=== PATIENT | male | born 1955 | race Caucasian/White ===

== ENCOUNTER 2020-06-01 09:14 | Emergency (ER) | payer OTHER, SELFPAY ==
[2020-06-01 09:35] VITALS: BP 136/75; BP 140/82; PULSE 55; PULSE 56; RESP 18; TEMP 36.6; O2SAT 97; BMI 31.2
--- NOTE | 2020-06-01 09:44 | CT_ITS ---
EXAMINATION: CT HEAD WITHOUT CONTRAST CLINICAL INFORMATION: Tremors. Headache. COMPARISON: Multiple priors, most recently MRI performed 05/06/2019. TECHNIQUE: Contiguous axial imaging was performed from the skull base to vertex without intravenous contrast. This CT examination was performed using dose optimization techniques as appropriate, variously including the following: * Automated exposure control * Adjustment of mA and/or kV according to patient size (this includes techniques or standardized protocols for targeted exams where dose is matched to indication/reason for exam; i.e. extremities or head) Use of iterative reconstruction technique DLP: 729 mGy-cm. FINDINGS: There is no evidence of acute intracranial hemorrhage or territorial infarction. No abnormal mass effect or midline shift is seen. [place] to white matter differentiation is well preserved. No extra-axial fluid collections are identified. No hydrocephalus. Proportional prominence of the ventricles and sulcal spaces is consistent with mild volume loss. Patchy periventricular and deep white matter hypoattenuation is consistent with mild small vessel ischemic changes. The osseous structures and soft tissues are normal. The mastoid air cells and visualized portions of the paranasal sinuses are well aerated. CT/CT head/brain wo con IMPRESSION: No acute intracranial pathology. Mild volume loss with small vessel ischemic change.
--- NOTE | 2020-06-01 09:44 | XR_ITS ---
EXAMINATION: XR CHEST CLINICAL INFORMATION: Dry cough for 3 weeks COMPARISON: 11/18/2018 TECHNIQUE: Frontal view of the chest was obtained. FINDINGS: The lungs are well expanded. There is no focal consolidation, edema, or effusion. No pneumothorax. The cardiomediastinal silhouette is within normal limits of size with a calcified aorta. No acute osseous abnormality. Degenerative changes of the shoulders, right greater than left. XR/XR chest 1V IMPRESSION: Clear lungs.
--- NOTE | 2020-06-01 09:50 | ED_ITS ---
HPI - General Adult General Chief complaint: General Medical Stated complaint: TREMMORS Time Seen by Provider: 06/01/20 09:34 Source: patient Mode of arrival: ambulatory Limitations: no limitations History of Present Illness HPI narrative: Patient presents to ED for Resolved tremors. patient stated last night around 9:pm he woke up and has tremors. Patient states he was awake at the time. Patient states his witnessed it and then gave him Klonopin and since then tremors has resolved. Patient has secondary complaint of dry cough for 3 weeks. Patient denies any recent head trauma. Patient states no c hest pain, shortness of breath, headache, dizziness, slurred speech, loss of vision, or paralysis of extremities. Patient states when he had the tremors he did not have any urinary or bowel incontinence. Patient also states he was awake at that time. Patient states he has had this before in the past. Related Data Allergies Allergy/AdvReac Type Severity Reaction Status Date / Time lisinopril [LISINOPRIL] Allergy Unknown MUSCLE Verified 06/01/20 11:58 ACHES pregabalin [From LYRICA] Allergy Unknown UNKNOWN Verified 06/01/20 11:58 Review of Systems Review of Systems: Yes all other systems are reviewed and are negative Constitutional: Constitutional: Reports as per HPI and Reports no additional constitutional complaints Eyes: Eyes: Reports as per HPI and Reports no additional eye complaints ENT: Reports system reviewed and no additional complaints, except as d ocumented and Reports as per HPI Cardiovascular: Cardiovascular: Reports as per HPI and Reports no additional cardiovascular complaints Respiratory: Respiratory: Reports as per HPI and Reports no additional respiratory complaints Gastrointestinal: Gastrointestinal: Reports as per HPI and Reports no additional gastrointestinal complaints Genitourinary: Genitourinary: Reports no additional male genitourinary complaints and Reports as per HPI Musculoskeletal: Musculoskeletal: Reports no additional musculoskeletal complaints and Reports as per HPI Neurologic: Reports system reviewed and no additional complaints, except as documented and Reports as per HPI Comments: Resolved tremors Psychiatric: Psychiatric: Reports no additional psychiatric complaints and Reports as per HPI Endocrine: Endocrine: Reports no additional endocrine complaints and Reports as per HPI [facility] Past Medical History Medical History (Updated 06/01/20 @ 17:10 by DULCE Vaughan) Anxiety Diabetic acidosis, type II Heart attack High blood cholesterol Stroke Surgical History (Updated 06/01/20 @ 09:46 by Dana Gutierrez) H/O neck surgery History of heart artery stent Social History Social History Alcohol intake: former Smoking Status: Never smoker Use of substances other than those prescribed or required for medical reasons: No Advance Directives: No Advance Directives Information Provided: No Physical Exam Vital Signs: Vital Signs: Last Vital Signs Temp 99.1 F 06/01/20 15:16 Pulse 59 06/01/20 15:16 Resp 15 06/01/20 15:16 BP 148/91 H 06/01/20 15:16 Pulse Ox 97 06/01/20 15:16 Body Mass Index 31.2 Const: General: cooperative, healthy appearing, comfortable, no acute distress and well developed Orientation/consciousness: patient oriented x3 HENMT: Head: Yes normal to inspection and Yes No palpable skull fracture present Eyes: General: appearance normal, both eyes and all related structures Visual Liriano: normal visual liriano by confrontation Neck: Neck: Yes normal visual inspection, Yes full ROM, Yes no lymphadenopathy, Yes no meningeal signs and Yes trachea midline Chest: Chest palpation & inspection: normal inspection of the chest, normal palpation of entire chest wall and no localized rib tenderness Resp: Effort & Inspection: normal respiratory effort and able to speak in complete sentences Auscultation: clear to auscultation bilaterally, no crackles, no rales, no rhonchi and no wheezes Cardio: Jugular venous distension: no JVD Heart sounds: S1 normal heart sound present and S2 normal heart sound present Bruits: Abdominal aortic bruit present GI: Inspection: Yes normal to inspection Palpation (GI): Abdominal aortic bruit present, nontender, no guarding and not rigid : General: No CVA tenderness and Yes no CVA tenderness Back/Spine/Pelvis: Back: no CVA tenderness, No CVA tenderness and No back tenderness Skin: General skin exam: no rashes or lesions noted Neuro: Other: negative for facial droop. Negative pronator drift. Cranial nerves intact. Motor and strength of all extremities are intact in call. Negative for any nystagmus. Negative for any neuro deficit General: patient oriented x3, gait normal, no meningeal signs and CN's II-XI intact bilaterally Cranial nerves: Yes CN's II-XII intact bilaterally Extrem: General: Yes normal to inspection and Yes full ROM Psych: Appearance: grossly normal, well kempt and not disheveled Course Course Course Narrative: patient presently does not have any tremors. Patient negative for any neuro deficit. History physical exam does not indicate stroke. Due to patient's age he will have medical workup including magnesium due to patient stated he take magnesium daily to make sure there is no hyper magnesium. period patient also check for other electrolyte deficiencies. Urine will be sent to rule out any infections. Chest x-ray will be sent to rule out pneumonia. patient also be sent for head CT to make sure there is no mass or bleed although very unlikely. Reevaluation(s) Reevaluation #1: Patient's intial troponi came back at 5.5. Head CT negative for stroke. Labs are at baseline. Awaiting for UA results. patient has not had any tremors during ED visit. Magneisum and elecrolytes came back normal. Time: 11:21 Reevaluation #2: Secondary troponin did not increase by 50% which makes acute mycocardial infarction unlikely as per [facility] [place] sensitivity algorithim. once again patient did not have any essential tremmors during ED visit. Time: 14:21 Reevaluation #3: Patient an episode of tremors that lasted for about 10 seconds. patient was conscisouness during this episode. patient did not have any urinary/bowel inconitence. Tremors resolved. NEgative for facial droops. Cranial nerves intact. Negative pronator drifts. Negative rhomberg test. Rapid hand movements and finger to nose exam is intact. motor exam of all extremities is intact and equal. patient has normal gait with a walker. patient usually ambulated with walker at baseline. patient refusess to give UA. Patient states he has no urge to go. patient informed of bladder scan and possible george, but patient refused and states he will follow up with his PCP to check his UA. Patient informed of necessity for UA to rule out infectiont that can lead to sepsis if not treated and . patient was informed of this and still would like to be discharge and will follow up with PCP tomorrow. Case discussed with Dr. Weller who agrees patient can be discharged. Presently negative for any neuro deficits. History and physical does not indicate Stroke or Seizures. Time: 17:02 Additional Reevaluation(s): I attempted to call to discuss care with patient and necessary follow up, but she could not be reached and there was no voicemail to leave a voicemail. At 5:47pm. I spoke with Nelia, patient's , and she was made aware of patient's care in the ED and labs including diagnostics were reviewed. She was informed patient refused Urine and was informed the risks of missing infection. She asked for UA sample cup and states she will bring patient;s UA sample to PCP tomorrow once he urinates tonight. She was informed to bring patient back to the ED immediatley for any concerning symptoms. She was explained signs of stroke, seizure, and syncope. Medical Decision Making MDM Narrative Medical decision making narrative: Tremors most likely anxiety induced. Lab Data Result diagrams: 06/01/20 11:06/01/20 11:22 Labs: Lab Results 06/01/20 06/01/20 06/01/20 Range/Units 11: 11:22 11:22 WBC 6.8 (4.8-10.8) X10*3/uL RBC 4.29 L (4.60-5.80) X10*6/uL Hgb 12.6 L (14.0-18.0) g/dl Hct 38.3 L (42-52) % MCV 89.3 (80-98) fL MCH 29.4 (27.0-33.0) pg MCHC 32.9 (31.0-36.0) g/dl RDW 12.7 (11.0-16.0) % Plt Count 185 (160-400) X10*3/uL MPV 10.3 (9.4-12.4) fL Immature Gran % (Auto) 0.3 (0.0-0.4) % Neut % (Auto) 55.4 (45-73) % Lymph % (Auto) 33.2 (20-40) % [place] % (Auto) 8.5 (2-11) % Eos % (Auto) 2.2 (0-4) % Baso % (Auto) 0.4 (0-2) % Lymph # (Auto) 2.3 (1.2-4.9) X10*3/uL [place] # (Auto) 0.6 (0.1-1.2) X10*3/uL Eos # (Auto) 0.2 (0.0-0.4) X10*3/uL Baso # (Auto) 0.0 (0.0-0.2) X10*3/uL Abs Immat Gran (auto) 0.02 (0.00-0.03) X10*3/uL Absolute Neuts (auto) 3.8 (2.0-8.3) X10*3/uL Absolute Nucleated RBC 0.000 (0.0-0.012) X10*3/uL Nucleated RBC % (auto) 0.0 (0.0-0.2) /100WBC PT 12.7 (10.8-13.0) SEC INR 1.1 (0.9-1.1) APTT 33.5 (24.1-38.0) SEC Sodium (135-145) mmol/L Potassium (3.3-5.1) mmol/l Chloride (96-108) mmol/L Carbon Dioxide (22-29) mmol/L Anion Gap (12-20) BUN (9-16) mg/dL Creatinine (0.5-1.4) mg/dL Estim Creat Clear Calc Estimated GFR Random Glucose (60-115) mg/dL Calcium (8.4-10.2) mg/dL Magnesium (1.6-2.6) mg/dL Total Bilirubin (0.0-1.0) mg/dL AST (5-37) U/L ALT (0-40) U/L Alkaline Phosphatase (39-117) U/L Troponin I High Sens 5.5 (<3.5-35.0) ng/L Total Protein (6.5-8.0) g/dL Albumin (3.5-5.0) g/dL 06/01/20 06/01/20 Range/Units 11:22 14:51 WBC (4.8-10.8) X10*3/uL RBC (4.60-5.80) X10*6/uL Hgb (14.0-18.0) g/dl Hct (42-52) % MCV (80-98) fL MCH (27.0-33.0) pg MCHC (31.0-36.0) g/dl RDW (11.0-16.0) % Plt Count (160-400) X10*3/uL MPV (9.4-12.4) fL Immature Gran % (Auto) (0.0-0.4) % Neut % (Auto) (45-73) % Lymph % (Auto) (20-40) % [place] % (Auto) (2-11) % Eos % (Auto) (0-4) % Baso % (Auto) (0-2) % Lymph # (Auto) (1.2-4.9) X10*3/uL [place] # (Auto) (0.1-1.2) X10*3/uL Eos # (Auto) (0.0-0.4) X10*3/uL Baso # (Auto) (0.0-0.2) X10*3/uL Abs Immat Gran (auto) (0.00-0.03) X10*3/uL Absolute Neuts (auto) (2.0-8.3) X10*3/uL Absolute Nucleated RBC (0.0-0.012) X10*3/uL Nucleated RBC % (auto) (0.0-0.2) /100WBC PT (10.8-13.0) SEC INR (0.9-1.1) APTT (24.1-38.0) SEC Sodium 140 (135-145) mmol/L Potassium 4.5 (3.3-5.1) mmol/l Chloride 99 (96-108) mmol/L Carbon Dioxide 32 H (22-29) mmol/L Anion Gap 14 (12-20) BUN 13 (9-16) mg/dL Creatinine 0.92 (0.5-1.4) mg/dL Estim Creat Clear Calc 84.2 Estimated GFR > 60 Random Glucose 103 (60-115) mg/dL Calcium 8.8 (8.4-10.2) mg/dL Magnesium 2.0 (1.6-2.6) mg/dL Total Bilirubin 0.7 (0.0-1.0) mg/dL AST 15 (5-37) U/L ALT 18 (0-40) U/L Alkaline Phosphatase 84 (39-117) U/L Troponin I High Sens 6.1 (<3.5-35.0) ng/L Total Protein 6.4 L (6.5-8.0) g/dL Albumin 4.2 (3.5-5.0) g/dL ECG Data Interpretation: Sinus bradycardia, nonspecific t wave abnormality. Vent rate 54, CO interval 194, QRS 92 Discharge Plan Discharge Clinical Impression: Tremor Patient Disposition: Home, Self-Care Instructions: Tremors (ED) Additional Instructions: Return to the ED for headache, slurred speech, urinary/bowel incontinence, paralysis of extremites, loss of vision, dizziness, neck stiffnes, loss of consciousness, fever, chills, abdominal pain, or any other concerning symptoms. Please follow up with your PCP. Follow up for Urine Analysis. patient refused to give UA during ED visit. Referrals: Dena Mcclelland MD [Physician] - 2 days (Tremors. Ct scan negative for stroke. Electrolytes are normal. ) Interventions: ED Discharge Assessment Last Done: 06/01/20 17:32 Discharge Date/Time: 06/01/20 17:32 Print Language: Nepalese
--- NOTE | 2020-06-01 10:05 | ECG_ITS ---
Test Reason : GENERAL WEAKNESS Blood Pressure : / mmHG Vent. Rate : 054 BPM Atrial Rate : 054 BPM P-R Int : 190 ms QRS Dur : 090 ms QT Int : 510 ms P-R-T Axes : 060 -20 003 degrees QTc Int : 483 ms Sinus bradycardia Nonspecific T wave abnormality Anterolateral leads Abnormal ECG When compared with ECG of 04-MAY-2019 22:52, T wave amplitude has decreased in Lateral leads Referred By: Zane Kim Electronically Signed By:NICOLAS WILCOX MD
[2020-06-01 11:37] LABS: MANUAL DIFF FLAG NO
[2020-06-01 11:42] VITALS: BP 152/88; PULSE 57; RESP 18; TEMP 36.6; O2SAT 97
[2020-06-01 11:46] LABS: Basophils Percent Auto 0.4 % (0-2); Eosinophils Absolute Auto 0.2 X10*3/uL (0.0-0.4); Eosinophils Percent Auto 2.2 % (0-4); Hematocrit 38.3 % (42-52); Hemoglobin 12.6 g/dl (14.0-18.0); Imm Gran Abs Auto 0.02 X10*3/uL (0.00-0.03); Imm Gran Pct Auto 0.3 % (0.0-0.4); Lymphocytes Absolute Auto 2.3 X10*3/uL (1.2-4.9); Lymphocytes Percent Auto 33.2 % (20-40); Mean Corpuscular HGB Conc 32.9 g/dl (31.0-36.0); Mean Corpuscular Hemoglobin 29.4 pg (27.0-33.0); Mean Corpuscular Volume 89.3 fL (80-98); Mean Platelet Volume 10.3 fL (9.4-12.4); Monocytes Absolute Auto 0.6 X10*3/uL (0.1-1.2); Monocytes Percent Auto 8.5 % (2-11); Neutrophils Absolute Auto 3.8 X10*3/uL (2.0-8.3); Neutrophils Percent Auto 55.4 % (45-73); Platelet Count 185 X10*3/uL (160-400); Red Blood Count 4.29 X10*6/uL (4.60-5.80); Red Cell Distribution Width 12.7 % (11.0-16.0); White Blood Count 6.8 X10*3/uL (4.8-10.8)
--- NOTE | 2020-06-01 11:46 | PC.NURSE ---
PATIENT PLACED ON [employer]
[2020-06-01 11:47] LABS: INTERNATIONAL NORM RATIO 1.1 (0.9-1.1); Prothrombin Time 12.7 SEC (10.8-13.0)
[2020-06-01 11:50] LABS: Partial Thromboplastin Time 33.5 SEC (24.1-38.0)
[2020-06-01 11:51] VITALS: BP 143/70; PULSE 58; RESP 16; O2SAT 97
[2020-06-01 12:06] LABS: Alanine Aminotransferase 18 U/L (0-40); Albumin Level 4.2 g/dL (3.5-5.0); Alkaline Phosphatase 84 U/L (39-117); Anion Gap 14 (12-20); Aspartate Amino Transferase 15 U/L (5-37); Bilirubin Total 0.7 mg/dL (0.0-1.0); Blood Urea Nitrogen 13 mg/dL (9-16); Calcium 8.8 mg/dL (8.4-10.2); Carbon Dioxide 32 mmol/L (22-29); Chloride 99 mmol/L (96-108); Creatinine Clr Calc Pharmacy 84.2; Estimated Glomerular Filt Rate > 60; Glucose Random 103 mg/dL (60-115); Potassium 4.5 mmol/l (3.3-5.1); Sodium 140 mmol/L (135-145); Total Protein 6.4 g/dL (6.5-8.0)
[2020-06-01 12:12] LABS: Troponin-I High Sensitivity 5.5 ng/L (<3.5-35.0)
[2020-06-01 14:00] VITALS: BP 152/83; PULSE 61; RESP 16; O2SAT 98
[2020-06-01] MEDS: Acetaminophen 325 MG TABLET 650 MG PO (14:21)
[2020-06-01 15:16] VITALS: BP 148/91; PULSE 59; RESP 15; TEMP 37.3; O2SAT 97
--- NOTE | 2020-06-01 15:20 | PC.NURSE ---
patient was reminded of urine and states unable to.
[2020-06-01 15:34] LABS: Troponin-I High Sensitivity 6.1 ng/L (<3.5-35.0)
== END 2020-06-01 17:32 | disposition home or self-care (01) ==
PROVIDERS: Physician Assistant; Emergency Provider Emergency Medicine
DX: R25.1 Tremor, unspecified (principal); Z79.899 Other long term (current) drug therapy
CPT/HCPCS: 36415; 70450; 71045; 80053; 83735; 84484; 85025; 85610; 85730; 93005; 99284

== ENCOUNTER 2020-06-19 | Inpatient (IN) | payer OTHER, SELFPAY ==
[2020-06-19] VITALS (8 sets, daily range): BP systolic 88–183; BP diastolic 52–76; PULSE 62–84; RESP 18–20; TEMP 36.2–36.8; O2SAT 94–98; BMI 42.9
--- NOTE | 2020-06-19 00:19 | ED_ITS ---
HPI - General Adult General Stated complaint: multiple complaints Time Seen by Provider: 06/19/20 00:11 Source: patient Mode of arrival: EMS Limitations: no limitations History of Present Illness HPI narrative: Patient been feeling weak for last few days frequent falls lower abdominal pain specially on the left side per EMS patient reported COVID positive in September per patient has been feeling weak since then and now complaining of increased left lower abdominal pain and burning on urination also feel tired fell this morning hitting his head patient is on Plavix no loss of consciousness no shortness of breath dry cough , at this time no fever Onset (ago): day(s) (2-3 days) Location: head Related Data Allergies Allergy/AdvReac Type Severity Reaction Status Date / Time lisinopril [LISINOPRIL] Allergy Unknown MUSCLE Verified 06/01/20 11:58 ACHES pregabalin [From LYRICA] Allergy Unknown UNKNOWN Verified 06/01/20 11:58 Review of Systems 2 Review of Systems: Yes all other systems are reviewed and are negative Constitutional: Constitutional: Reports anorexia, Reports body ache(s), Reports daytime sleepiness, Reports fatigue, Reports poor appetite and Reports weakness Eyes: Eyes: Reports no additional eye complaints ENT: Reports system reviewed and no additional complaints, except as documented Cardiovascular: Cardiovascular: Reports no additional cardiovascular complaints and Denies dyspnea Respiratory: Respiratory: Reports no additional respiratory complaints, Denies chest congestion, Denies cough and Denies dyspnea Gastrointestinal: Gastrointestinal: Reports abdominal pain (Lower abdomen), Reports diarrhea and Denies vomiting Genitourinary: Genitourinary: Reports no additional male genitourinary complaints Musculoskeletal: Musculoskeletal: Reports myalgias Neurologic: Reports system reviewed and no additional complaints, except as documented and Reports weakness Endocrine: Endocrine: Reports fatigue PMFSH Past Medical History Medical History Anxiety Diabetic acidosis, type II Heart attack High blood cholesterol Stroke Surgical History H/O neck surgery History of heart artery stent Social History Social History Alcohol intake: former Smoking Status: Never smoker Advance Directives: No Advance Directives Information Provided: No Physical Exam Vital Signs: Vital Signs: Last Vital Signs Temp 98.2 F 06/19/20 00:24 Pulse 63 06/19/20 00:24 Resp 18 06/19/20 00:24 BP 99/52 L 06/19/20 00:24 Pulse Ox 94 06/19/20 00:24 Body Mass Index 42.9 Const: General: cooperative, comfortable, acute distress moderate and tired appearing Nutritional Appearance: average body habitus Orientation/consciousness: oriented to person, oriented to place, oriented to time and patient oriented x3 Limitations: no limitations HENMT: Head: Yes normal to inspection Mouth: moist mucous membranes Eyes: General: appearance normal, both eyes and all related structures Conjunctivae: conjunctivae normal Sclerae: sclerae normal Neck: Neck: Yes normal visual inspection and Yes no meningeal signs Thyroid: Thyroid normal Chest: Chest palpation & inspection: normal inspection of the chest Resp: Effort & Inspection: normal respiratory effort Auscultation: clear to auscultation bilaterally, no crackles, no rales and no rhonchi Cardio: Rate: regular rate Rhythm: regular rhythm Heart sounds: S1 normal heart sound present and S2 normal heart sound present GI: Inspection: Yes normal to inspection Palpation (GI): Soft to palpation, Tenderness to palpation present (GI) in the LLQ and with rebound tenderness, Guarding due to palpation present (GI) in the LLQ and No hepatosplenomegaly present Percussion: Yes normal to percussion Auscultation: normal bowel sounds Rectal Exam - Male: Yes deferred : General: Yes no CVA tenderness Back/Spine/Pelvis: Back: no CVA tenderness Thoracic/Lumbar Spine: thoracic and lumbar spine normal to inspection Skin: General skin exam: no rashes or lesions noted Neuro: General: oriented to person, oriented to place, oriented to time, patient oriented x3, moves all extremities, Normal light touch and pain sensation, no meningeal signs, no focal motor deficits and CN's II-XI intact bilaterally Extrem: General: Yes normal to inspection, Yes full ROM and Yes no pedal edema Medical Decision Making MDM Narrative Medical decision making narrative: Patient with left lower quadrant tenderness with poor oral intake and weakness repeated fall CT scan showed sigmoid diverticulitis with developing pericolonic abscess measuring about 2.8 cm. Labs are pending will give him IV Levaquin and Flagyl get the surgery consult. Case discussed with Dr. Way will admit the patient to his service patient signed out to Dr. go to check the labs Lab Data Result diagrams: 06/19/20 01:35 06/19/20 01:35 Discharge Plan Discharge Clinical Impression: Acute diverticulitis, Perforation of sigmoid colon due to diverticulitis Patient Disposition: Admitted As Inpatient
--- NOTE | 2020-06-19 00:20 | ECG_ITS ---
Test Reason : ADMISSION Blood Pressure : / mmHG Vent. Rate : 061 BPM Atrial Rate : 061 BPM P-R Int : 172 ms QRS Dur : 090 ms QT Int : 438 ms P-R-T Axes : 062 000 033 degrees QTc Int : 440 ms Normal sinus rhythm Nonspecific ST and T wave abnormality Abnormal ECG When compared to the previous EKG of No significant changes seen Referred By: Axel Weller Electronically Signed By:STEVE REILLY MD
--- NOTE | 2020-06-19 00:20 | XR_ITS ---
EXAMINATION: XR CHEST CLINICAL INFORMATION: Altered mental status COMPARISON: 06/01/2020 TECHNIQUE: Frontal view of the chest was obtained. FINDINGS: Low lung volumes. Mild right basilar opacities may be compressive atelectasis. Developing infiltrate cannot be excluded No effusion. No failure XR/XR chest 1V IMPRESSION: Low lung volumes. Mild right basilar atelectasis but developing infiltrate cannot be excluded
--- NOTE | 2020-06-19 00:20 | CT_ITS ---
EXAMINATION: CT ABDOMEN AND PELVIS WITHOUT CONTRAST CLINICAL INFORMATION: Left lower quadrant pain COMPARISON: 11/18/2018 TECHNIQUE: Multidetector volumetric imaging was performed from the superior aspect of the liver through the pubic symphysis. Sagittal and coronal reformatted images were obtained on the technologist's workstation. This CT examination was performed using dose optimization techniques as appropriate, variously including the following: *Automated exposure control *Adjustment of mA and/or kV according to patient size (this includes techniques or standardized protocols for targeted exams where dose is matched to indication/reason for exam; i.e. extremities or head) *Use of iterative reconstruction technique DLP: 1978 mGy-cm FINDINGS: LUNG BASES: The visualized lung bases are unremarkable. Coronary artery calcifications are present. LIVER, GALLBLADDER, AND BILIARY TREE: The liver is normal in size, shape, and attenuation. Subcentimeter hypodense lesion in the posterior right hepatic lobe is too small to characterize. No biliary ductal dilatation is present. The gallbladder is unremarkable with no evidence of radiopaque gallstones, gallbladder wall thickening, or obvious pericholecystic inflammatory changes. PANCREAS: Unremarkable. SPLEEN: Unremarkable. ADRENAL GLANDS: Unremarkable. KIDNEYS AND URETERS: The kidneys are normal in size, shape, and attenuation. No hydronephrosis, hydroureter, or calculi seen. No perinephric stranding. BLADDER: Thick-walled appearance, which may be due to underdistention.. GASTROINTESTINAL TRACT: There is diverticulosis of the sigmoid colon with focal wall thickening and surrounding inflammation, consistent with acute diverticulitis. In addition, there is a pericolonic collection of gas and fluid in the lateral left lower quadrant measuring approximately 2.5 x 1.7 cm on axial image 75/107 and 2.8 cm in craniocaudal dimension, most consistent with developing pericolonic abscess formation. No evidence of bowel obstruction. The appendix is unremarkable. ABDOMINAL WALL: No significant hernia is appreciated. LYMPH NODES: Normal. VASCULAR: There is atherosclerotic calcification along the aorta and iliac arteries. PELVIC VISCERA: Unremarkable. OSSEOUS STRUCTURES: Degenerative changes are present in the hips, right greater than left. There is also degenerative change in the spine at L5-S1. CT/CT abdomen pelvis wo con IMPRESSION: 1. Sigmoid colon diverticulitis with adjacent developing pericolonic abscess measuring up to 2.8 cm. 2. Thick-walled appearance of the urinary bladder which may be due to underdistention, though cystitis cannot be excluded. Correlation with urinalysis is recommended. 3. Coronary artery calcifications. Correlation with cardiac risk factors is recommended. This was discussed with Dr. Weller on 06/19/2020 1:22 AM.
--- NOTE | 2020-06-19 00:20 | CT_ITS ---
EXAMINATION: CT HEAD WITHOUT CONTRAST CLINICAL INFORMATION: Status post fall COMPARISON: 06/01/2020 TECHNIQUE: Contiguous axial imaging was performed from the skull base to vertex without intravenous administration of contrast. This CT examination was performed using dose optimization techniques as appropriate, variously including the following: *Automated exposure control *Adjustment of mA and/or kV according to patient size (this includes techniques or standardized protocols for targeted exams where dose is matched to indication/reason for exam; i.e. extremities or head) *Use of iterative reconstruction technique DLP: 1978 mGy-cm FINDINGS: There is no evidence of acute intracranial hemorrhage or territorial infarction. No abnormal mass effect or midline shift is seen. [place] to white matter differentiation is well preserved. No extra-axial fluid collections are identified. The ventricles are normal in size. There is no abnormal attenuation within the brain parenchyma. The osseous structures and soft tissues are normal. Mild mucosal thickening of the anterior ethmoid air cells. The mastoid air cells are well-aerated. CT/CT head/brain wo con IMPRESSION: No acute intracranial pathology.
[2020-06-19] MEDS: 0.9 % Sodium Chloride 1,000 ML 999 ML IVCONT (01:30)
[2020-06-19 01:46] LABS: Basophils Percent Auto 0.2 % (0-2); Eosinophils Percent Auto 0.1 % (0-4); Imm Gran Abs Auto 0.05 X10*3/uL (0.00-0.03); Imm Gran Pct Auto 0.3 % (0.0-0.4); Lymphocytes Absolute Auto 2.1 X10*3/uL (1.2-4.9); Lymphocytes Percent Auto 13.1 % (20-40); MANUAL DIFF FLAG SCAN; Mean Corpuscular HGB Conc 33.3 g/dl (31.0-36.0); Mean Platelet Volume 9.9 fL (9.4-12.4); Monocytes Absolute Auto 1.6 X10*3/uL (0.1-1.2); Neutrophils Absolute Auto 12.1 X10*3/uL (2.0-8.3); Neutrophils Percent Auto 76.3 % (45-73); Platelet Count 185 X10*3/uL (160-400); SCAN SMEAR FLAG 1; White Blood Count 15.8 X10*3/uL (4.8-10.8)
[2020-06-19 02:04] LABS: INTERNATIONAL NORM RATIO 1.4 (0.9-1.1); Prothrombin Time 16.3 SEC (10.8-13.0)
[2020-06-19 02:07] LABS: Partial Thromboplastin Time 34.4 SEC (24.1-38.0); Troponin-I High Sensitivity 11.1 ng/L (<3.5-35.0)
[2020-06-19] MEDS: metroNIDAZOLE/NS 500 MG/100 ML PIGGYBACK 100 MG IV ×3 (02:07→19:11)
[2020-06-19 02:10] LABS: Anion Gap 17 (12-20); Blood Urea Nitrogen 11 mg/dL (9-16); Calcium 8.6 mg/dL (8.4-10.2); Carbon Dioxide 26 mmol/L (22-29); Chloride 102 mmol/L (96-108); Creatinine Clr Calc Pharmacy 77.3; Estimated Glomerular Filt Rate > 60; Glucose Random 119 mg/dL (60-115); Potassium 3.9 mmol/l (3.3-5.1); Sodium 141 mmol/L (135-145)
[2020-06-19 02:11] LABS: Alanine Aminotransferase 12 U/L (0-40); Alkaline Phosphatase 73 U/L (39-117); Aspartate Amino Transferase 8 U/L (5-37); Bilirubin Direct 0.7 mg/dL (0.0-0.5); Bilirubin Total 1.9 mg/dL (0.0-1.0); Lipase 15 U/L (8-78); Total Protein 6.3 g/dL (6.5-8.0)
[2020-06-19 02:15] LABS: Lactic Acid 2.3 mmol/L (0.5-2.0)
[2020-06-19 02:25] LABS: Influenza A PCR NEGATIVE (Negative); Influenza B PCR NEGATIVE (Negative); Resp Syncy Virus RNA Qual PCR NEGATIVE (Negative); SARS COV2 PCR INHOUSE NEGATIVE (Negative)
--- NOTE | 2020-06-19 02:51 | PC.NURSE ---
rounded on pt. even, unlabored rspirations. resting in ED stecher wtih no needs. call montano within reach, side rails in place, fluids running per orders.
--- NOTE | 2020-06-19 02:52 | PC.NURSE ---
unable to provide urine sample at this time
[2020-06-19] MEDS: levoFLOXacin/D5W 500 MG/100 ML PIGGYBACK 100 MG IV ×2 (02:56→23:04)
[2020-06-19 03:08] LABS: SLIDE REVIEW VERIFIED
[2020-06-19 03:42] LABS: Reflex Lactate? Lactic Acid Added
--- NOTE | 2020-06-19 04:38 | PC.NURSE ---
APPROACHED PT RE: REPEAT LAB DRAW. PT STATES NEEDS A BREAK AT THIS TIME WILL LET RN KNOW UPON REPORT
--- NOTE | 2020-06-19 07:46 | PM.HPGS ---
History of Present Illness History of Present Illness Date of Service: 06/19/20 Chief complaint: SIGMOID DIVERTICULITIS WITH ABSCESS Narrative: Dragan Figueroa is a 64 year old male presenting with progressive weakness in several falls while at home, reporting abdominal pain on the left side. He reports pain with urinating as well. Patient apparently struck his head this morning after the fall. He is currently on Plavix following a previous CVA; there was no apparent loss of consciousness, shortness of breath, cough, fever, or chills. Patient was COVID-19 positive in September according to his . Patient presented to the emergency department and was noted to be tender in the left lower quadrant. CT of the abdomen and pelvis revealed severe diverticular changes as well as diverticulitis with small abscess. CT of the head revealed no evidence of intra cranial bleed. He is admitted to the surgical service for management of this sigmoid diverticulitis. He denies a previous history of sigmoid diverticulitis. Review of Systems Constitutional: Constitutional: Denies headache(s) and Reports weakness ENT: Reports dizziness and Denies headache(s) Cardiovascular: Cardiovascular: Denies chest pain, Denies rapid heart rate, Denies palpitations and Denies slow heart rate Respiratory: Respiratory: Denies chest congestion, Denies cough, Denies pain on inspiration and Denies wheezing Gastrointestinal: Gastrointestinal: Reports abdominal pain, Denies bloating, Reports change in stool character, Reports constipation, Reports diarrhea, Denies nausea, Denies vomiting and Denies hematemesis Musculoskeletal: Musculoskeletal: Denies back pain, Denies arthralgias, Denies joint swelling and Denies numbness Integumentary/Breasts: Skin/Breast: Denies change in pigmentation, Denies erythema and Denies rash Neurologic: Reports system reviewed and no additional complaints, except as documented, Denies confusion, Reports dizziness, Denies headache(s), Denies numbness and Reports weakness Psychiatric: Psychiatric: Denies anxiety, Denies confusion and Denies depression Endocrine: Endocrine: Denies palpitations Hematologic/Lymphatic: Hematologic/Lymphatic: Denies easy bleeding, Denies easy bruising and Denies lymphadenopathy Allergic/Immunologic: Allergic/Immunologic: Denies wheezing PMFSH Past Medical History Medical History Anxiety Diabetic acidosis, type II Heart attack High blood cholesterol Stroke Surgical History Surgical History H/O neck surgery History of heart artery stent Social History Social History Alcohol intake: unknown Smoking Status: Never smoker Advance Directives: No Advance Directives Information Provided: No Meds Allergies Allergy/AdvReac Type Severity Reaction Status Date / Time lisinopril [LISINOPRIL] Allergy Unknown MUSCLE Verified 06/01/20 11:58 ACHES pregabalin [From LYRICA] Allergy Unknown UNKNOWN Verified 06/01/20 11:58 Home Medications Medication Instructions Recorded Confirmed Type albuterol sulfate 2 puff INHALATION Q4H PRN 06/19/20 06/19/20 History atorvastatin 1 tab PO DAILY 06/19/20 06/19/20 History cholecalciferol (vitamin D3) 1 cap PO DAILY 06/19/20 06/19/20 History clonazepam 1 mg PO DIRECTED 06/19/20 06/19/20 History clopidogrel 1 tab PO DAILY 06/19/20 06/19/20 History divalproex 1 tab PO DAILY 06/19/20 06/19/20 History duloxetine 1 cap PO DAILY 06/19/20 06/19/20 History famotidine 1 tab PO BID 06/19/20 06/19/20 History gabapentin 1 cap PO BID 06/19/20 06/19/20 History lamotrigine 1 tab PO BID 06/19/20 06/19/20 History lancets [OneTouch Delica Plus 06/19/20 06/19/20 History Lancet] losartan 1 tab PO DAILY 06/19/20 06/19/20 History metformin 1 tab PO BID 06/19/20 06/19/20 History metoprolol tartrate 1.5 tab PO BID 06/19/20 06/19/20 History risperidone 1 tab PO BID PRN 06/19/20 06/19/20 History tamsulosin 1 cap PO DAILY 06/19/20 06/19/20 History Physical Exam Vital Signs: Vital Signs: Last Vital Signs Temp 98.2 F 06/19/20 02:50 Pulse 62 06/19/20 02:50 Resp 18 06/19/20 02:50 BP 108/52 L 06/19/20 02:50 Pulse Ox 98 06/19/20 02:50 Body Mass Index 42.9 Const: General: cooperative, comfortable and well developed; No confusion Nutritional Appearance: well nourished Orientation/consciousness: patient oriented x3 and No confusion Eyes: Sclerae: sclerae normal EOM: EOMs intact bilaterally Neck: Neck: Yes normal visual inspection Resp: Effort & Inspection: normal respiratory effort, no cough and no respiratory distress Cardio: Jugular venous distension: no JVD Rate: regular rate Rhythm: regular rhythm GI: Inspection: Yes normal to inspection Palpation (GI): Soft to palpation, Tenderness to palpation present (GI) in the LLQ, no guarding and not rigid Percussion: Yes normal to percussion Auscultation: normal bowel sounds Skin: General skin exam: dry skin Rashes: no rashes Neuro: General: patient oriented x3, no focal motor deficits and No confusion Extrem: General: Yes full ROM and Yes no clubbing, cyanosis or edema Results Results Labs: Short CBC 06/19/20 Range/Units 01:35 WBC 15.8 H (4.8-10.8) X10*3/uL Hgb 12.0 L (14.0-18.0) g/dl Hct 36.0 L (42-52) % Plt Count 185 (160-400) X10*3/uL BMP 06/19/20 01:35 Sodium 141 Potassium 3.9 Chloride 102 Carbon Dioxide 26 BUN 11 Creatinine 1.18 Calcium 8.6 Liver Function 06/19/20 Range/Units 01:35 Total Bilirubin 1.9 H (0.0-1.0) mg/dL Direct Bilirubin 0.7 H (0.0-0.5) mg/dL AST 8 D (5-37) U/L ALT 12 (0-40) U/L Alkaline Phosphatase 73 (39-117) U/L Albumin 4.0 (3.5-5.0) g/dL Assessment and Plan (1) Perforation of sigmoid colon due to diverticulitis: Status: Acute 64-year-old male patient presenting with a 3 day history of abdominal pain associated weakness and frequent falls. Patient presented to the emergency department and was found to have an elevated WBC and CT findings suggestive of acute sigmoid diverticulitis with abscess formation. I recommended admission with IV antibiotics. He will be started on Zosyn 3.75 mg q.6 hours. Repeat laboratories will be ordered. A hospitalist consultation has been requested for management of his multiple medical problems including diabetes, coronary artery disease and cerebrovascular disease. The patient understands and agrees with the plan.
--- NOTE | 2020-06-19 10:03 | PM.IMCN ---
History of Present Illness Data of Consult Service Date: 06/19/20 <DULCE Holm - Last Filed: 06/19/20 10:53> Requesting physician: Balwinder Way <DULCE Holm - Last Filed: 06/19/20 10:53> Primary Care Provider: Unknown Physician <DULCE Holm - Last Filed: 06/19/20 10:53> HPI Reason for consult: diverticulitis, DM, medical management <DULCE Holm - Last Filed: 06/19/20 10:53> This is a 64-year-old male with a history of coronary artery disease, stroke diabetes BPH, anxiety who presented to the emergency department with abdominal pain and weakness. He had reportedly sustained fall striking his head. There is no loss of consciousness. His brain CT was negative. He underwent a CT the abdomen which showed diverticulitis of the sigmoid colon with developing abscess. Lab work was significant for leukocytosis of 15.8 and lactic acid of 2.3. On IV antibiotics and was admitted to the surgical service. <DULCE Holm - Last Filed: 06/19/20 10:53> Review of Systems Review of Systems: Yes all other systems are reviewed and are negative <DULCE Holm - Last Filed: 06/19/20 10:53> Cardiovascular: Cardiovascular: Denies chest pain <DULCE Holm - Last Filed: 06/19/20 10:53> Respiratory: Respiratory: Denies cough <DULCE Holm - Last Filed: 06/19/20 10:53> Gastrointestinal: Gastrointestinal: Reports abdominal pain, Denies nausea and Denies vomiting <DULCE Holm - Last Filed: 06/19/20 10:53> Genitourinary: Genitourinary: Reports dysuria <DULCE Holm - Last Filed: 06/19/20 10:53> [facility] Medical History: Medical History (Updated 06/19/20 @ 10:39 by DULCE Holm) Anxiety BPH (benign prostatic hyperplasia) Coronary artery disease COVID-19 Diabetes High blood cholesterol Hyperlipidemia Intracranial atherosclerosis Stroke <DULCE Holm - Last Filed: 06/19/20 10:53> Family History: Family History Other Coronary artery disease Diabetes <DULCE Holm - Last Filed: 06/19/20 10:53> Surgical History: Surgical History H/O neck surgery History of heart artery stent <DULCE Holm - Last Filed: 06/19/20 10:53> Social History: Social History (Updated 06/19/20 @ 10:32 by DULCE Holm) Household Members: Family Housing: Assisted Living Facility Alcohol intake: never Smoking Status: Never smoker Use of substances other than those prescribed or required for medical reasons: No service: No Current occupational status: unemployed <DULCE Holm - Last Filed: 06/19/20 10:53> Meds Allergies/Adverse reactions: Allergies Allergy/AdvReac Type Severity Reaction Status Date / Time lisinopril [LISINOPRIL] Allergy Unknown MUSCLE Verified 06/01/20 11:58 ACHES pregabalin [From LYRICA] Allergy Unknown UNKNOWN Verified 06/01/20 11:58 <DULCE Holm - Last Filed: 06/19/20 10:53> Home medications: Home Medications Medication Instructions Recorded Confirmed Type albuterol sulfate 2 puff INHALATION Q4H PRN 06/19/20 06/19/20 History atorvastatin 1 tab PO DAILY 06/19/20 06/19/20 History cholecalciferol (vitamin D3) 1 cap PO DAILY 06/19/20 06/19/20 History clonazepam 1 mg PO BID 06/19/20 06/19/20 History clopidogrel 1 tab PO DAILY 06/19/20 06/19/20 History divalproex 1 tab PO DAILY 06/19/20 06/19/20 History duloxetine 1 cap PO DAILY 06/19/20 06/19/20 History famotidine 1 tab PO BID 06/19/20 06/19/20 History gabapentin 1 cap PO BID 06/19/20 06/19/20 History lamotrigine 1 tab PO BID 06/19/20 06/19/20 History lancets [OneTouch Delica Plus 06/19/20 06/19/20 History Lancet] loperamide 2 mg PO 3XW PRN 06/19/20 06/19/20 History losartan 1 tab PO DAILY 06/19/20 06/19/20 History metformin 1 tab PO BID 06/19/20 06/19/20 History metoprolol tartrate 1.5 tab PO BID 06/19/20 06/19/20 History promethazine 1 tab PO DAILY PRN 06/19/20 06/19/20 History risperidone 1 tab PO BID PRN 06/19/20 06/19/20 History tamsulosin 1 cap PO DAILY 06/19/20 06/19/20 History <DULCE Holm - Last Filed: 06/19/20 10:53> Physical Exam Vital Signs and Narrative: Vital Signs: Last Vital Signs Temp 98.2 F 06/19/20 09:26 Pulse 81 06/19/20 09:26 Resp 18 06/19/20 09:26 BP 143/68 H 06/19/20 09:26 Pulse Ox 97 06/19/20 09:26 Body Mass Index 42.9 <DULCE Holm Last Filed: 06/19/20 10:53> Const: Nutritional Appearance: well nourished <DULCE Holm Last Filed: 06/19/20 10:53> Orientation/consciousness: patient oriented x3 <DULCE Holm Last Filed: 06/19/20 10:53> HENMT: Head: Yes normocephalic and Yes atraumatic <DULCE Holm Last Filed: 06/19/20 10:53> Eyes: Sclerae: sclerae normal <DULCE Holm Last Filed: 06/19/20 10:53> Chest: Chest palpation & inspection: normal inspection of the chest <DULCE Holm Last Filed: 06/19/20 10:53> Resp: Effort & Inspection: normal respiratory effort and no respiratory distress <DULCE Holm Last Filed: 06/19/20 10:53> Auscultation: clear to auscultation bilaterally <DULCE Holm Last Filed: 06/19/20 10:53> Cardio: Rate: regular rate <DULCE Holm - Last Filed: 06/19/20 10:53> Rhythm: regular rhythm <DULCE Holm - Last Filed: 06/19/20 10:53> GI: Palpation (GI): Soft to palpation and Tenderness to palpation present (GI) in the LLQ <DULCE Holm - Last Filed: 06/19/20 10:53> Skin: General skin exam: no rashes or lesions noted <DULCE Holm - Last Filed: 06/19/20 10:53> Neuro: General: patient oriented x3 <DULCE Holm - Last Filed: 06/19/20 10:53> Cranial nerves: Yes CN's II-XII intact bilaterally and Yes Bilaterally intact EOM present <DULCE Holm - Last Filed: 06/19/20 10:53> Extrem: General: Yes normal to inspection <DULCE Holm - Last Filed: 06/19/20 10:53> Results Labs CBC and Chem 7: : 06/20/20 06:11 06/20/20 06:11 <DULCE Holm - Last Filed: 06/19/20 10:53> Labs: Laboratory Results - last 24 hr 06/19/20 06/19/20 06/19/20 01:35 01:35 01:35 MCV 90.0 MCH 30.0 MCHC 33.3 RDW 13.0 Plt Count 185 MPV 9.9 Immature Gran % (Auto) 0.3 Neut % (Auto) 76.3 H Lymph % (Auto) 13.1 L [place] % (Auto) 10.0 Eos % (Auto) 0.1 Baso % (Auto) 0.2 Lymph # (Auto) 2.1 [place] # (Auto) 1.6 H Eos # (Auto) 0.0 Baso # (Auto) 0.0 Abs Immat Gran (auto) 0.05 H Absolute Neuts (auto) 12.1 H Absolute Nucleated RBC 0.000 Nucleated RBC % (auto) 0.0 Smear Tech's Comments VERIFIED PT 16.3 H D INR 1.4 H APTT 34.4 Anion Gap 17 Estim Creat Clear Calc 77.3 Estimated GFR > 60 Random Glucose 119 H Lactic Acid Lactic Acid Fup @ 2Hr Calcium 8.6 Total Bilirubin Direct Bilirubin AST ALT Alkaline Phosphatase Troponin I High Sens Total Protein Albumin Lipase Coronavirus (PCR) Influenza Type A (PCR) Influenza Type B (PCR) RSV RNA Qual (PCR) 06/19/20 06/19/20 06/19/20 01:35 01:35 01:35 MCV MCH MCHC RDW Plt Count MPV Immature Gran % (Auto) Neut % (Auto) Lymph % (Auto) [place] % (Auto) Eos % (Auto) Baso % (Auto) Lymph # (Auto) [place] # (Auto) Eos # (Auto) Baso # (Auto) Abs Immat Gran (auto) Absolute Neuts (auto) Absolute Nucleated RBC Nucleated RBC % (auto) Smear Tech's Comments PT INR APTT Anion Gap Estim Creat Clear Calc Estimated GFR Random Glucose Lactic Acid 2.3 H* Lactic Acid Fup @ 2Hr Calcium Total Bilirubin 1.9 H Direct Bilirubin 0.7 H AST 8 D ALT 12 Alkaline Phosphatase 73 Troponin I High Sens 11.1 D Total Protein 6.3 L Albumin 4.0 Lipase 15 Coronavirus (PCR) Influenza Type A (PCR) Influenza Type B (PCR) RSV RNA Qual (PCR) 06/19/20 06/19/20 01:35 05:39 MCV MCH MCHC RDW Plt Count MPV Immature Gran % (Auto) Neut % (Auto) Lymph % (Auto) [place] % (Auto) Eos % (Auto) Baso % (Auto) Lymph # (Auto) [place] # (Auto) Eos # (Auto) Baso # (Auto) Abs Immat Gran (auto) Absolute Neuts (auto) Absolute Nucleated RBC Nucleated RBC % (auto) Smear Tech's Comments PT INR APTT Anion Gap Estim Creat Clear Calc Estimated GFR Random Glucose Lactic Acid Lactic Acid Fup @ 2Hr 2.0 Calcium Total Bilirubin Direct Bilirubin AST ALT Alkaline Phosphatase Troponin I High Sens Total Protein Albumin Lipase Coronavirus (PCR) NEGATIVE Influenza Type A (PCR) NEGATIVE Influenza Type B (PCR) NEGATIVE RSV RNA Qual (PCR) NEGATIVE <DULCE Holm - Last Filed: 06/19/20 10:53> Imaging Radiologist's Impressions: Impressions Abdomen/Pelvis CT 06/19/20 00:20 IMPRESSION: 1. Sigmoid colon diverticulitis with adjacent developing pericolonic abscess measuring up to 2.8 cm. 2. Thick-walled appearance of the urinary bladder which may be due to underdistention, though cystitis cannot be excluded. Correlation with urinalysis is recommended. 3. Coronary artery calcifications. Correlation with cardiac risk factors is recommended. This was discussed with Dr. Weller on 06/19/2020 1:22 AM. Chest X-Ray 06/19/20 00:20 IMPRESSION: Low lung volumes. Mild right basilar atelectasis but developing infiltrate cannot be excluded Head CT 06/19/20 00:20 IMPRESSION: No acute intracranial pathology. <DULCE Holm - Last Filed: 06/19/20 10:53> Assessment and Plan (1) Acute diverticulitis: Status: Acute <DULCE Holm - Last Filed: 06/19/20 10:53> (2) Dysuria: Status: Acute <DULCE Holm - Last Filed: 06/19/20 10:53> (3) Fall: Status: Acute <DULCE Holm - Last Filed: 06/19/20 10:53> This is a 64-year-old with history coronary artery disease, stroke, anxiety, diabetes BPH, dyslipidemia who presented to the emergency department with weakness, fall, abdominal pain found to have diverticulitis with abscess Diverticulitis with abscess Although lactic acid elevated at 2.3 on admission, patient did not meet sepsis criteria. NPO. CT guided drainage planned IV levofloxacin, Flagyl Follow-up blood cultures Management per surgical team Dysuria urinalysis pending Diabetes Hold metformin Check POCs for now while NPO, can add sliding scale coverage if needed Fall PT eval prior to d/c CAD s/p stent Continue Plavix, statin, metoprolol Hypertension Continue losartan, metoprolol BPH Continue Flomax Mood Continue risperidone, lamotrigine, duloxetine, Depakote, clonazepam Thank you for allowing us to participate in the care of this patient. We will follow along with you. This case was discussed with Dr. Mcdonough <DULCE Holm - Last Filed: 06/19/20 10:53>
[2020-06-19] MEDS: Dextrose 5 % and Lactated Ring 1,000 ML 125 ML IVCONT (10:06)
--- NOTE | 2020-06-19 10:43 | PC.NURSE ---
Claudia RN from called and asked when the last time patient took his Plavix, I went in a asked patient he told me 2 days ago. Relayed that information to Claudia.
[2020-06-19] MEDS: DULoxetine HCl 60 MG CAPSULE.DR PO (11:41)
[2020-06-19] MEDS: Metoprolol Tartrate 50 MG TABLET 75 MG PO ×2 (11:42→23:03)
[2020-06-19] MEDS: lamoTRIgine 100 MG TABLET 200 MG PO ×2 (11:42→23:03)
[2020-06-19] MEDS: Divalproex Sodium ER 250 MG TAB.ER.24H PO (11:42)
[2020-06-19 12:17] LABS: Glucose, Whole Blood 124 mg/dL (60-115)
--- NOTE | 2020-06-19 14:14 | MHC.CM.PN ---
Addendum entered by Anabelle Das 06/19/20 15:16: [facility] will follow. Pt is current with them Original Note: CM net with pt. Very pleasant man who is concerned about his who had surgery before . Currently has services with [facility] and has a nurse come to his home. PCP is Dr. Prince. No HCP but willing to complete one. Nelia Figueroa HCP ([phone], -home. and alternate is Magdalena Hayes (sister) ([phone]. D/C plan is home with resumption of services. Referral placed
[2020-06-19 17:20] LABS: Glucose, Whole Blood 116 mg/dL (60-115)
[2020-06-19] MEDS: Morphine Sulfate 4 MG/ML CARTRIDGE IVPUSH (20:21)
[2020-06-19 21:35] LABS: Glucose, Whole Blood 102 mg/dL (60-115)
[2020-06-19] MEDS: clonazePAM 1 MG TABLET PO (23:03)
[2020-06-19] MEDS: Gabapentin 100 MG CAPSULE PO (23:04)
[2020-06-19] MEDS: Famotidine 20 MG TABLET PO (23:04)
[2020-06-19 23:56] LABS: Glucose Urine UA NEG (NEG); Leukocyte Esterase Urine NEG (NEG); Nitrite Urine NEG (NEG); Specific Gravity - Urine 1.015 (1.005-1.025); Urine Blood TRACE (NEG); Urine Ketones 15 MG/DL (NEG); Urine Protein NEG (NEG-TRACE)
[2020-06-20 00:01] LABS: Appearance Urine CLEAR
[2020-06-20 00:02] LABS: Color Urine AMBER
[2020-06-20] MEDS: 0.9 % Sodium Chloride Flush 3 ML SYRINGE IVFLUSH ×2 (00:42→07:32)
[2020-06-20] MEDS: Dextrose 5 % and Lactated Ring 1,000 ML 125 ML IVCONT ×3 (00:42→16:52)
[2020-06-20 00:55] LABS: RBC Urine 0-2 /HPF (0); Squamous Epithelial Cell Urine TRACE /LPF; WBC Urine 0 /HPF (0-4)
[2020-06-20] MEDS: metroNIDAZOLE/NS 500 MG/100 ML PIGGYBACK 100 MG IV ×3 (03:44→18:26)
[2020-06-20 03:55] VITALS: BP 151/76; PULSE 74; RESP 18; TEMP 36.3; O2SAT 93
[2020-06-20 06:32] LABS: MANUAL DIFF FLAG NO
[2020-06-20 07:09] LABS: Basophils Percent Auto 0.1 % (0-2); Eosinophils Absolute Auto 0.2 X10*3/uL (0.0-0.4); Eosinophils Percent Auto 1.5 % (0-4); Hematocrit 33.4 % (42-52); Hemoglobin 11.2 g/dl (14.0-18.0); Imm Gran Abs Auto 0.04 X10*3/uL (0.00-0.03); Imm Gran Pct Auto 0.4 % (0.0-0.4); Lymphocytes Absolute Auto 1.7 X10*3/uL (1.2-4.9); Lymphocytes Percent Auto 16.6 % (20-40); Mean Corpuscular HGB Conc 33.5 g/dl (31.0-36.0); Mean Corpuscular Hemoglobin 29.7 pg (27.0-33.0); Mean Corpuscular Volume 88.6 fL (80-98); Monocytes Percent Auto 9.4 % (2-11); Neutrophils Absolute Auto 7.3 X10*3/uL (2.0-8.3); Platelet Count 157 X10*3/uL (160-400); Red Blood Count 3.77 X10*6/uL (4.60-5.80); Red Cell Distribution Width 12.6 % (11.0-16.0); White Blood Count 10.1 X10*3/uL (4.8-10.8)
[2020-06-20 07:32] VITALS: BP 156/83; PULSE 67; RESP 18; TEMP 35.9; O2SAT 94
[2020-06-20 07:34] LABS: Anion Gap 13 (12-20); Blood Urea Nitrogen 8 mg/dL (9-16); Carbon Dioxide 26 mmol/L (22-29); Chloride 102 mmol/L (96-108); Creatinine Clr Calc Pharmacy 121.7; Estimated Glomerular Filt Rate > 60; Glucose Fasting 120 mg/dL (60-99); Potassium 3.4 mmol/l (3.3-5.1); Sodium 138 mmol/L (135-145)
[2020-06-20 08:02] LABS: Calcium 8.1 mg/dL (8.4-10.2)
[2020-06-20 08:15] LABS: Glucose, Whole Blood 114 mg/dL (60-115)
[2020-06-20] MEDS: clonazePAM 1 MG TABLET PO ×2 (08:30→21:58)
[2020-06-20] MEDS: Divalproex Sodium ER 250 MG TAB.ER.24H PO (08:30)
[2020-06-20] MEDS: Losartan Potassium 50 MG TABLET 100 MG PO (08:30)
[2020-06-20] MEDS: Tamsulosin HCL 0.4 MG CAPSULE PO (08:30)
[2020-06-20] MEDS: Famotidine 20 MG TABLET PO ×2 (08:30→21:58)
[2020-06-20] MEDS: Gabapentin 100 MG CAPSULE PO ×2 (08:30→21:58)
[2020-06-20] MEDS: Atorvastatin Calcium 80 MG TABLET PO (08:30)
[2020-06-20] MEDS: DULoxetine HCl 60 MG CAPSULE.DR PO (08:31)
[2020-06-20] MEDS: Metoprolol Tartrate 50 MG TABLET 75 MG PO ×2 (08:32→21:58)
[2020-06-20] MEDS: lamoTRIgine 100 MG TABLET 200 MG PO ×2 (08:32→21:58)
--- NOTE | 2020-06-20 09:48 | HO.PM.IMPN ---
Subjective Subjective Date of Service: 06/20/20 Interval History: Seen in f/u for diverticulitis with perforation. Has some pain not worse Review of Systems Gen: no fever GI: abd pain Neurologic Neurologic: Denies confusion Psychiatric Psychiatric: Denies confusion Physical Exam Vital Signs: Vital Signs: Last Vital Signs Temp 96.7 F L 06/20/20 07:32 Pulse 67 06/20/20 07:32 Resp 18 06/20/20 07:32 BP 156/83 H 06/20/20 07:32 Pulse Ox 94 06/20/20 07:32 Body Mass Index 42.9 Const: General: No confusion Nutritional Appearance: well nourished Orientation/consciousness: patient oriented x3 and No confusion HENMT: Head: Yes normocephalic and Yes atraumatic Eyes: Sclerae: sclerae normal Chest: Chest palpation & inspection: normal inspection of the chest Resp: Effort & Inspection: normal respiratory effort and no respiratory distress Auscultation: clear to auscultation bilaterally Cardio: Rate: regular rate Rhythm: regular rhythm GI: Palpation (GI): Soft to palpation and Tenderness to palpation present (GI) in the LLQ Skin: General skin exam: no rashes or lesions noted Neuro: General: patient oriented x3 and No confusion Cranial nerves: Yes CN's II-XII intact bilaterally and Yes Bilaterally intact EOM present Extrem: General: Yes normal to inspection Objective Data Current Medications Generic Name Dose Route Start Last Admin Trade Name Freq PRN Reason Stop Dose Admin Acetaminophen 650 mg 06/19/20 08:33 Acetaminophen 325 Mg Tablet PO Q6H PRN Pain, Mild (Pain Scale 1-3) Albuterol Sulfate 2 puff 06/19/20 10:42 Albuterol Sulfate 90 Mcg 8 Gm Inhaler INHALE Q4H PRN wheezing Atorvastatin Calcium 80 mg 06/20/20 09:00 06/20/20 08:30 Atorvastatin Calcium 80 Mg Tablet PO 80 mg DAILY AARON Administration Clonazepam 1 mg 06/19/20 21:00 06/20/20 08:30 Clonazepam 1 Mg Tablet PO 1 mg BID AARON Administration Clopidogrel Bisulfate 75 mg 06/20/20 09:00 Clopidogrel Bisulfate 75 Mg Tablet PO DAILY AARON Divalproex Sodium 250 mg 06/19/20 10:45 06/20/20 08:30 Divalproex Sodium Er 250 Mg Tab.Er.24h PO 250 mg DAILY AARON Administration Duloxetine HCl 60 mg 06/19/20 10:45 06/20/20 08:31 Duloxetine Hcl 60 Mg Capsule.Dr PO 60 mg DAILY AARON Administration Famotidine 20 mg 06/19/20 21:00 06/20/20 08:30 Famotidine 20 Mg Tablet PO 20 mg BID AARON Administration Gabapentin 100 mg 06/19/20 21:00 06/20/20 08:30 Gabapentin 100 Mg Capsule PO 100 mg BID AARON Administration Levofloxacin 500 mg in 100 mls @ 100 mls/hr 06/19/20 23:00 06/20/20 00:41 Levaquin IV Infused Q24H AARON Infusion Metronidazole 500 mg in 100 mls @ 100 mls/hr 06/19/20 11:00 06/20/20 04:45 Flagyl IV Infused Q8H AARON Infusion Dextrose/Lactated Ringer's 1,000 mls @ 125 mls/hr 06/19/20 08:33 06/20/20 08:30 D5lr IVCONT 125 mls/hr .Q8H AARON Administration Lamotrigine 200 mg 06/19/20 10:45 06/20/20 08:32 Lamotrigine 100 Mg Tablet PO 200 mg BID AARON Administration Losartan Potassium 100 mg 06/20/20 09:00 06/20/20 08:30 Losartan Potassium 50 Mg Tablet PO 100 mg DAILY AARON Administration Protocol Metoprolol Tartrate 75 mg 06/19/20 11:00 06/20/20 08:32 Metoprolol Tartrate 50 Mg Tablet PO 75 mg BID AARON Administration Protocol Morphine Sulfate 4 mg 06/19/20 08:33 06/19/20 20:21 Morphine Sulfate 4 Mg/Ml Cartridge IVPUSH 4 mg Q3H PRN Administration Pain, Severe (Pain Scale 7-10) Oxycodone HCl 5 mg 06/19/20 08:33 Oxycodone Hcl Immed Release 5 Mg Tablet PO Q6H PRN Pain, Moderate (Pain Scale 4-6 Pharmacy Consult 1 each 06/19/20 08:33 Consult Rx Perform Med Rec MISCELLANE ONCE PRN Consult order Risperidone 0.5 mg 06/19/20 10:42 Risperidone 0.5 Mg Tablet PO BID PRN Sleep Sodium Chloride 3 ml 06/19/20 08:33 06/20/20 07:32 0.9 % Sodium Chloride Flush 3 Ml Syringe IVFLUSH 3 ml QSHIFT AARON Administration Tamsulosin HCl 0.4 mg 06/20/20 09:00 06/20/20 08:30 Tamsulosin Hcl 0.4 Mg Capsule PO 0.4 mg DAILY AARON Administration Temazepam 15 mg 06/19/20 08:33 Temazepam 15 Mg Capsule PO BEDTIME PRN Insomnia Labs CBC & Chem 7: 06/20/20 06:11 06/20/20 06:11 Microbiology Microbiology Results: Microbiology 06/19/20 01:35 Blood - Venous Blood Culture - Preliminary No growth after 24 hours. 06/19/20 01:35 Blood - Venous Blood Culture - Preliminary No growth after 24 hours. Assessment and Plan (1) Acute diverticulitis: Status: Acute (2) Dysuria: Status: Acute (3) Fall: Status: Acute Assessment and Plan: 64-year-old with history coronary artery disease, stroke, anxiety, diabetes BPH, dyslipidemia who presented to the emergency department with weakness, fall, abdominal pain found to have diverticulitis with abscess Diverticulitis with abscess Although lactic acid elevated at 2.3 on admission, patient did not meet sepsis criteria. . CT guided drainage planned Continue IV levofloxacin, Flagyl Follow-up blood cultures Management per surgical team Dysuria--UA is normal, no pain this morning urinalysis pending Diabetes Hold metformin Check POCs for now while NPO, can add sliding scale coverage if needed Fall PT eval prior to d/c CAD s/p stent Continue Plavix, statin, metoprolol Hypertension Continue losartan, metoprolol BPH Continue Flomax Mood Continue risperidone, lamotrigine, duloxetine, Depakote, clonazepam
--- NOTE | 2020-06-20 10:11 | PM.PNGS ---
Subjective Subjective Date of Service: 06/20/20 <DULCE Lennon - Last Filed: 06/20/20 10:19> 06/20/20 <Cliff Dudley MD - Last Filed: 06/20/20 12:48> Interval history: He states he is feeling better, resting comfortably in bed.. ABD pain improving but still present. He continues to be NPO. Denies N/V. <DULCE Lennon - Last Filed: 06/20/20 10:19> Physical Exam Vital Signs: Vital Signs: Last Vital Signs Temp 96.7 F L 06/20/20 07:32 Pulse 67 06/20/20 07:32 Resp 18 06/20/20 07:32 BP 156/83 H 06/20/20 07:32 Pulse Ox 94 06/20/20 07:32 Body Mass Index 42.9 <DULCE Lennon - Last Filed: 06/20/20 10:19> Const: General: cooperative, healthy appearing and no acute distress <DULCE Lennon - Last Filed: 06/20/20 10:19> Resp: Effort & Inspection: normal respiratory effort <DULCE Lennon - Last Filed: 06/20/20 10:19> Auscultation: clear to auscultation bilaterally <DULCE Lennon - Last Filed: 06/20/20 10:19> Cardio: Rate: regular rate <DULCE Lennon - Last Filed: 06/20/20 10:19> Heart sounds: S1 normal heart sound present and S2 normal heart sound present <DULCE Lennon - Last Filed: 06/20/20 10:19> GI: Other: Only mild tenderness with palpation of the Left-side of ABD. <DULCE Lennon - Last Filed: 06/20/20 10:19> Inspection: Yes normal to inspection <DULCE Lennon Last Filed: 06/20/20 10:19> Palpation (GI): Soft to palpation <DULCE Lennon - Last Filed: 06/20/20 10:19> Auscultation: normal bowel sounds <DULCE Lennon Last Filed: 06/20/20 10:19> Extrem: General: Yes no calf tenderness <DULCE Lennon Last Filed: 06/20/20 10:19> Progress Note: A&P Assessment and plan (1) Acute diverticulitis: Problem details: WBC improving and now WNL. 15.8--> 10.1. ABD exam soft, only mild TTP of the Left side. <DULCE Lennon - Last Filed: 06/20/20 10:19> Status: Acute <DULCE Lennon - Last Filed: 06/20/20 10:19> Assessment and Plan: Continue ABX, can switch from IV to PO Continue pain mgmt Encourage OOB. <DULCE Lennon - Last Filed: 06/20/20 10:19> . General Surgery Attending - Pauly Dudley M.D. Patient was evaluated and examined at the bedside with Mr. Agnel Spears PA-C. I confirm above findings and plan as documented. Abdomen is soft, tender still but per report much improved from yesterday. Continue current antibiotic treatment. <Cliff Dudley MD - Last Filed: 06/20/20 12:48> Fall Risk Details Current Medications: Current Medications Generic Name Dose Route Start Last Admin Trade Name Freq PRN Reason Stop Dose Admin Acetaminophen 650 mg 06/19/20 08:33 Acetaminophen 325 Mg Tablet PO Q6H PRN Pain, Mild (Pain Scale 1-3) Albuterol Sulfate 2 puff 06/19/20 10:42 Albuterol Sulfate 90 Mcg 8 Gm Inhaler INHALE Q4H PRN wheezing Atorvastatin Calcium 80 mg 06/20/20 09:00 06/20/20 08:30 Atorvastatin Calcium 80 Mg Tablet PO 80 mg DAILY [facility] Administration Clonazepam 1 mg 06/19/20 21:00 06/20/20 08:30 Clonazepam 1 Mg Tablet PO 1 mg BID [facility] Administration Clopidogrel Bisulfate 75 mg 06/20/20 09:00 Clopidogrel Bisulfate 75 Mg Tablet PO DAILY [facility] Divalproex Sodium 250 mg 06/19/20 10:45 06/20/20 08:30 Divalproex Sodium Er 250 Mg Tab.Er.24h PO 250 mg DAILY [facility] Administration Duloxetine HCl 60 mg 06/19/20 10:45 06/20/20 08:31 Duloxetine Hcl 60 Mg Capsule.Dr PO 60 mg DAILY [facility] Administration Famotidine 20 mg 06/19/20 21:00 06/20/20 08:30 Famotidine 20 Mg Tablet PO 20 mg BID [facility] Administration Gabapentin 100 mg 06/19/20 21:00 06/20/20 08:30 Gabapentin 100 Mg Capsule PO 100 mg BID [facility] Administration Levofloxacin 500 mg in 100 mls @ 100 mls/hr 06/19/20 23:00 06/20/20 00:41 Levaquin IV Infused Q24H [facility] Infusion Metronidazole 500 mg in 100 mls @ 100 mls/hr 06/19/20 11:00 06/20/20 04:45 Flagyl IV Infused Q8H [facility] Infusion Dextrose/Lactated Ringer's 1,000 mls @ 125 mls/hr 06/19/20 08:33 06/20/20 08:30 D5lr IVCONT 125 mls/hr .Q8H [facility] Administration Lamotrigine 200 mg 06/19/20 10:45 06/20/20 08:32 Lamotrigine 100 Mg Tablet PO 200 mg BID [facility] Administration Losartan Potassium 100 mg 06/20/20 09:00 06/20/20 08:30 Losartan Potassium 50 Mg Tablet PO 100 mg DAILY [facility] Administration Protocol Metoprolol Tartrate 75 mg 06/19/20 11:00 06/20/20 08:32 Metoprolol Tartrate 50 Mg Tablet PO 75 mg BID [facility] Administration Protocol Morphine Sulfate 4 mg 06/19/20 08:33 06/19/20 20:21 Morphine Sulfate 4 Mg/Ml Cartridge IVPUSH 4 mg Q3H PRN Administration Pain, Severe (Pain Scale 7-10) Oxycodone HCl 5 mg 06/19/20 08:33 Oxycodone Hcl Immed Release 5 Mg Tablet PO Q6H PRN Pain, Moderate (Pain Scale 4-6 Pharmacy Consult 1 each 06/19/20 08:33 Consult Rx Perform Med Rec MISCELLANE ONCE PRN Consult order Risperidone 0.5 mg 06/19/20 10:42 Risperidone 0.5 Mg Tablet PO BID PRN Sleep Sodium Chloride 3 ml 06/19/20 08:33 06/20/20 07:32 0.9 % Sodium Chloride Flush 3 Ml Syringe IVFLUSH 3 ml QSHIFT [facility] Administration Tamsulosin HCl 0.4 mg 06/20/20 09:00 06/20/20 08:30 Tamsulosin Hcl 0.4 Mg Capsule PO 0.4 mg DAILY [facility] Administration Temazepam 15 mg 06/19/20 08:33 Temazepam 15 Mg Capsule PO BEDTIME PRN Insomnia <DULCE Lennon - Last Filed: 06/20/20 10:19> Time Spent With Patient Time: Total time spent is greater than 50% in coordination of care (as documented) at patient's floor/unit and/or counseling patient: <DULCE Lennon - Last Filed: 06/20/20 10:19> Time with patient: 15 - 24 minutes <Cliff Dudley MD - Last Filed: 06/20/20 12:48>
[2020-06-20] MEDS: Clopidogrel Bisulfate 75 MG TABLET PO (11:27)
[2020-06-20 11:32] VITALS: BP 143/74; PULSE 53; RESP 16; TEMP 36.3; O2SAT 97
[2020-06-20 11:57] LABS: Glucose, Whole Blood 203 mg/dL (60-115)
[2020-06-20 15:41] VITALS: BP 123/70; PULSE 58; RESP 18; TEMP 35.9; O2SAT 97
[2020-06-20 16:54] LABS: Glucose, Whole Blood 153 mg/dL (60-115)
--- NOTE | 2020-06-20 17:00 | PC.NURSE ---
PT LETHARGIC MOST OF DAY BUT AROUSABLE. AMBULATED TO BR WITH 2 ASSIST. VERY WEAK AND UNSTEADY ON HIS FEET. DENIES PAIN. NPO STATUS MAINTAINED. IVF PER MD ORDER
[2020-06-20] MEDS: Insulin Lispro 100 UNIT/ML 3 ML VIAL SUBCUT (17:12)
[2020-06-20 20:00] VITALS: BP 171/78; PULSE 69; RESP 18; TEMP 36.2; O2SAT 94
[2020-06-20 20:48] LABS: Glucose, Whole Blood 99 mg/dL (60-115)
[2020-06-20] MEDS: levoFLOXacin/D5W 500 MG/100 ML PIGGYBACK 100 MG IV (22:13)
[2020-06-20 23:40] VITALS: BP 158/82; PULSE 68; RESP 18; TEMP 36.3; O2SAT 98
[2020-06-21] VITALS (7 sets, daily range): BP systolic 144–176; BP diastolic 71–84; PULSE 60–69; RESP 17–20; TEMP 36–36.6; O2SAT 94–98
[2020-06-21] MEDS: Dextrose 5 % and Lactated Ring 1,000 ML 125 ML IVCONT ×3 (02:53→22:24)
[2020-06-21] MEDS: metroNIDAZOLE/NS 500 MG/100 ML PIGGYBACK 100 MG IV ×3 (03:17→19:46)
[2020-06-21 07:38] LABS: Glucose, Whole Blood 146 mg/dL (60-115)
[2020-06-21] MEDS: lamoTRIgine 100 MG TABLET 200 MG PO ×2 (08:59→21:40)
[2020-06-21] MEDS: oxyCODONE HCl Immed Release 5 MG TABLET PO (08:59)
[2020-06-21] MEDS: Metoprolol Tartrate 50 MG TABLET 75 MG PO ×2 (08:59→21:40)
[2020-06-21] MEDS: DULoxetine HCl 60 MG CAPSULE.DR PO (08:59)
[2020-06-21] MEDS: Divalproex Sodium ER 250 MG TAB.ER.24H PO (08:59)
[2020-06-21] MEDS: Tamsulosin HCL 0.4 MG CAPSULE PO (08:59)
[2020-06-21] MEDS: Losartan Potassium 50 MG TABLET 100 MG PO (09:00)
[2020-06-21] MEDS: Famotidine 20 MG TABLET PO ×2 (09:00→21:40)
[2020-06-21] MEDS: clonazePAM 1 MG TABLET PO ×2 (09:01→21:40)
[2020-06-21] MEDS: Gabapentin 100 MG CAPSULE PO ×2 (09:01→21:40)
[2020-06-21] MEDS: Clopidogrel Bisulfate 75 MG TABLET PO (09:01)
[2020-06-21] MEDS: Atorvastatin Calcium 80 MG TABLET PO (09:01)
[2020-06-21 11:10] LABS: Glucose, Whole Blood 196 mg/dL (60-115)
--- NOTE | 2020-06-21 11:35 | HO.PM.IMPN ---
Subjective Subjective Date of Service: 06/21/20 Interval History: Seen in f/u for diverticulitis with perforation. Has some pain not worse Physical Exam Vital Signs: Vital Signs: Last Vital Signs Temp 98 F 06/21/20 07:18 Pulse 60 06/21/20 07:18 Resp 20 06/21/20 07:18 BP 158/71 H 06/21/20 07:18 Pulse Ox 95 06/21/20 07:18 Body Mass Index 42.9 General: AO X 3, no acute distress Resp: CTA bilateral CVS: S1,S2,RRR GI: +BS, LLQ tenderness, voluntary guarding Skin: No rash Neuro: motor grossly intact Psych: appropriate affect Objective Data Current Medications Generic Name Dose Route Start Last Admin Trade Name Freq PRN Reason Stop Dose Admin Acetaminophen 650 mg 06/19/20 08:33 Acetaminophen 325 Mg Tablet PO Q6H PRN Pain, Mild (Pain Scale 1-3) Albuterol Sulfate 2 puff 06/19/20 10:42 Albuterol Sulfate 90 Mcg 8 Gm Inhaler INHALE Q4H PRN wheezing Atorvastatin Calcium 80 mg 06/20/20 09:00 06/21/20 09:01 Atorvastatin Calcium 80 Mg Tablet PO 80 mg DAILY [facility] Administration Clonazepam 1 mg 06/19/20 21:00 06/21/20 09:01 Clonazepam 1 Mg Tablet PO 1 mg BID [facility] Administration Clopidogrel Bisulfate 75 mg 06/20/20 09:00 06/21/20 09:01 Clopidogrel Bisulfate 75 Mg Tablet PO 75 mg DAILY [facility] Administration Divalproex Sodium 250 mg 06/19/20 10:45 06/21/20 08:59 Divalproex Sodium Er 250 Mg Tab.Er.24h PO 250 mg DAILY [facility] Administration Duloxetine HCl 60 mg 06/19/20 10:45 06/21/20 08:59 Duloxetine Hcl 60 Mg Capsule.Dr PO 60 mg DAILY [facility] Administration Famotidine 20 mg 06/19/20 21:00 06/21/20 09:00 Famotidine 20 Mg Tablet PO 20 mg BID [facility] Administration Gabapentin 100 mg 06/19/20 21:00 06/21/20 09:01 Gabapentin 100 Mg Capsule PO 100 mg BID [facility] Administration Levofloxacin 500 mg in 100 mls @ 100 mls/hr 06/19/20 23:00 06/20/20 23:39 Levaquin IV Infused Q24H [facility] Infusion Metronidazole 500 mg in 100 mls @ 100 mls/hr 06/19/20 11:00 06/21/20 04:19 Flagyl IV Infused Q8H [facility] Infusion Dextrose/Lactated Ringer's 1,000 mls @ 125 mls/hr 06/19/20 08:33 06/21/20 04:19 D5lr IVCONT 125 mls/hr .Q8H [facility] Infusion Insulin Human Lispro 0 unit 06/20/20 16:30 06/21/20 09:02 Insulin Lispro 100 Unit/Ml 3 Ml Vial SUBCUT Not Given QIDACHS [facility] Protocol Lamotrigine 200 mg 06/19/20 10:45 06/21/20 08:59 Lamotrigine 100 Mg Tablet PO 200 mg BID [facility] Administration Losartan Potassium 100 mg 06/20/20 09:00 06/21/20 09:00 Losartan Potassium 50 Mg Tablet PO 100 mg DAILY [facility] Administration Protocol Metoprolol Tartrate 75 mg 06/19/20 11:00 06/21/20 08:59 Metoprolol Tartrate 50 Mg Tablet PO 75 mg BID [facility] Administration Protocol Morphine Sulfate 4 mg 06/19/20 08:33 06/19/20 20:21 Morphine Sulfate 4 Mg/Ml Cartridge IVPUSH 4 mg Q3H PRN Administration Pain, Severe (Pain Scale 7-10) Oxycodone HCl 5 mg 06/19/20 08:33 06/21/20 08:59 Oxycodone Hcl Immed Release 5 Mg Tablet PO 5 mg Q6H PRN Administration Pain, Moderate (Pain Scale 4-6 Pharmacy Consult 1 each 06/19/20 08:33 Consult Rx Perform Med Rec MISCELLANE ONCE PRN Consult order Risperidone 0.5 mg 06/19/20 10:42 Risperidone 0.5 Mg Tablet PO BID PRN Sleep Sodium Chloride 3 ml 06/19/20 08:33 06/21/20 09:02 0.9 % Sodium Chloride Flush 3 Ml Syringe IVFLUSH Not Given QSHIFT [facility] Tamsulosin HCl 0.4 mg 06/20/20 09:00 06/21/20 08:59 Tamsulosin Hcl 0.4 Mg Capsule PO 0.4 mg DAILY [facility] Administration Temazepam 15 mg 06/19/20 08:33 Temazepam 15 Mg Capsule PO BEDTIME PRN Insomnia Labs CBC & Chem 7: 06/20/20 06:11 06/20/20 06:11 Microbiology Microbiology Results: Microbiology 06/19/20 01:35 Blood - Venous Blood Culture - Preliminary No growth after 48 hours. 06/19/20 01:35 Blood - Venous Blood Culture - Preliminary No growth after 48 hours. Assessment and Plan (1) Acute diverticulitis: Problem details: WBC improving and now WNL. 15.8--> 10.1. ABD exam soft, only mild TTP of the Left side. Status: Acute (2) Dysuria: Status: Acute (3) Fall: Status: Acute Assessment and Plan: 64-year-old with history coronary artery disease, stroke, anxiety, diabetes BPH, dyslipidemia who presented to the emergency department with weakness, fall, abdominal pain found to have diverticulitis with abscess Diverticulitis with abscess Although lactic acid elevated at 2.3 on admission, patient did not meet sepsis criteria. . CT guided drainage was planned but later cancelled Continue IV levofloxacin, Flagyl and if no surgery planned then can be switched to PO once eating full meal Cultures negative rosaura far further management per surgical team Dysuria--resolved, UA normal. Diabetes Hold metformin Check POCs for now while NPO, can add sliding scale coverage if needed Fall PT eval prior to d/c CAD s/p stent Continue Plavix, statin, metoprolol Hypertension Continue losartan, metoprolol BPH Continue Flomax Mood Continue risperidone, lamotrigine, duloxetine, Depakote, clonazepam Add heparin for DVT rosalie not going to surgery at least not today
--- NOTE | 2020-06-21 11:42 | HO.PM.IMPN ---
Subjective Subjective Date of Service: 06/24/20 Interval History: Seen in follow-up of acute diverticulitis, no abdominal pain has been passing gas denies nausea, vomiting, feels better, no acute overnight issues and wants to eat Review of Systems General no headache, no dizziness, no fever, no chills. CVS no chest pain, no palpitation. Respiratory no cough, no shortness of breath. Gastrointestinal no nausea, no vomiting, no abdominal pain Physical Exam Vital Signs: Vital Signs: Selected Entries 06/24/20 07:51 Temperature 97.5 F Pulse Rate 67 Respiratory Rate 16 Blood Pressure 180/83 H Pulse Oximetry 95 Oxygen Delivery Me thod Room Air Body Mass Index 42.9 General patient resting comfortably in no acute distress. Neck supple no JVD. CVS regular rate rhythm, Respiratory lungs clear to auscultation, no respiratory distress Gastrointestinal abdomen soft, nontender, bowel sounds audible, no guarding , no rigidity. Extremities no clubbing cyanosis or edema. Neuro nonfocal, speech clear. Skin no rash Objective Data Current Medications Generic Name Dose Route Start Last Admin Trade Name Freq PRN Reason Stop Dose Admin Acetaminophen 650 mg 06/19/20 08:33 Acetaminophen 325 Mg Tablet PO Q6H PRN Pain, Mild (Pain Scale 1-3) Albuterol Sulfate 2 puff 06/19/20 10:42 Albuterol Sulfate 90 Mcg 8 Gm Inhaler INHALE Q4H PRN wheezing Atorvastatin Calcium 80 mg 06/20/20 09:00 06/21/20 09:01 Atorvastatin Calcium 80 Mg Tablet PO 80 mg DAILY [facility] Administration Clonazepam 1 mg 06/19/20 21:00 06/21/20 09:01 Clonazepam 1 Mg Tablet PO 1 mg BID [facility] Administration Clopidogrel Bisulfate 75 mg 06/20/20 09:00 06/21/20 09:01 Clopidogrel Bisulfate 75 Mg Tablet PO 75 mg DAILY [facility] Administration Divalproex Sodium 250 mg 06/19/20 10:45 06/21/20 08:59 Divalproex Sodium Er 250 Mg Tab.Er.24h PO 250 mg DAILY [facility] Administration Duloxetine HCl 60 mg 06/19/20 10:45 06/21/20 08:59 Duloxetine Hcl 60 Mg Capsule.Dr PO 60 mg DAILY [facility] Administration Famotidine 20 mg 06/19/20 21:00 06/21/20 09:00 Famotidine 20 Mg Tablet PO 20 mg BID [facility] Administration Gabapentin 100 mg 06/19/20 21:00 06/21/20 09:01 Gabapentin 100 Mg Capsule PO 100 mg BID [facility] Administration Heparin Sodium (Porcine) 5,000 unit 06/21/20 11:45 Heparin Sodium,Porcine 5,000 Unit/Ml Vial SUBCUT Q12H [facility] Levofloxacin 500 mg in 100 mls @ 100 mls/hr 06/19/20 23:00 06/20/20 23:39 Levaquin IV Infused Q24H [facility] Infusion Metronidazole 500 mg in 100 mls @ 100 mls/hr 06/19/20 11:00 06/21/20 04:19 Flagyl IV Infused Q8H [facility] Infusion Dextrose/Lactated Ringer's 1,000 mls @ 125 mls/hr 06/19/20 08:33 06/21/20 04:19 D5lr IVCONT 125 mls/hr .Q8H [facility] Infusion Insulin Human Lispro 0 unit 06/20/20 16:30 06/21/20 09:02 Insulin Lispro 100 Unit/Ml 3 Ml Vial SUBCUT Not Given QIDACHS [facility] Protocol Lamotrigine 200 mg 06/19/20 10:45 06/21/20 08:59 Lamotrigine 100 Mg Tablet PO 200 mg BID [facility] Administration Losartan Potassium 100 mg 06/20/20 09:00 06/21/20 09:00 Losartan Potassium 50 Mg Tablet PO 100 mg DAILY [facility] Administration Protocol Metoprolol Tartrate 75 mg 06/19/20 11:00 06/21/20 08:59 Metoprolol Tartrate 50 Mg Tablet PO 75 mg BID [facility] Administration Protocol Morphine Sulfate 4 mg 06/19/20 08:33 06/19/20 20:21 Morphine Sulfate 4 Mg/Ml Cartridge IVPUSH 4 mg Q3H PRN Administration Pain, Severe (Pain Scale 7-10) Oxycodone HCl 5 mg 06/19/20 08:33 06/21/20 08:59 Oxycodone Hcl Immed Release 5 Mg Tablet PO 5 mg Q6H PRN Administration Pain, Moderate (Pain Scale 4-6 Pharmacy Consult 1 each 06/19/20 08:33 Consult Rx Perform Med Rec MISCELLANE ONCE PRN Consult order Risperidone 0.5 mg 06/19/20 10:42 Risperidone 0.5 Mg Tablet PO BID PRN Sleep Sodium Chloride 3 ml 06/19/20 08:33 06/21/20 09:02 0.9 % Sodium Chloride Flush 3 Ml Syringe IVFLUSH Not Given QSHIFT [facility] Tamsulosin HCl 0.4 mg 06/20/20 09:00 06/21/20 08:59 Tamsulosin Hcl 0.4 Mg Capsule PO 0.4 mg DAILY [facility] Administration Temazepam 15 mg 06/19/20 08:33 Temazepam 15 Mg Capsule PO BEDTIME PRN Insomnia Labs CBC & Chem 7: 06/23/20 06:04 06/23/20 06:04 Microbiology Microbiology Results: Microbiology 06/19/20 01:35 Blood - Venous Blood Culture - Preliminary No growth after 48 hours. 06/19/20 01:35 Blood - Venous Blood Culture - Preliminary No growth after 48 hours. Assessment and Plan (1) Hypertension: Status: Acute (2) Colonic diverticular abscess: Status: Acute (3) Fall: Status: Acute (4) Dysuria: Status: Acute (5) Acute diverticulitis: Status: Acute (6) Perforation of sigmoid colon due to diverticulitis: Status: Acute Assessment and Plan: 64-year-old with history coronary artery disease, stroke, anxiety, diabetes BPH, dyslipidemia who presented to the emergency department with weakness, fall, abdominal pain found to have diverticulitis with abscess Diverticulitis with abscess no abdominal pain this a.m. patient feeling better,repeat CT scan of abdomen and pelvis showed mild worsening of abscess. At this point no intervention is planned, diet is been advanced continue IV Flagyl and Levaquin, once eating we can change to PO for total of 10 to 14 days of Abx. May change to PO meds. If no procedure is planned we should resume heparin for DVT prophylaxis and plavix for CAD Further management by surgery Dysuria--resolved, UA normal. Diabetes--continue SSI and resume Metformin once eating full meals Fall likely related to weakness and infection will obtain PT eval prior to discharge CAD s/p stent--stable. 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 Plavix has been on hold if definitively not going to surgery or for IR drainage, Plavix should resum Hypertension--BP remains high, I don't think it is related to pain. Continue home dose of Metoprolol 75 bid, Losartan 100 daily. Norvasc 5 m (added on 06/23), will add diuretic if BP remains high BPH --Continue Flomax Mood Continue risperidone, lamotrigine, duloxetine, Depakote, and clonazepam DVT prophylaxis with mechanical device, heparin if no procedure is planned. PT eval
[2020-06-21] MEDS: Heparin Sodium,Porcine 5,000 UNIT/ML VIAL 5000 UNIT SUBCUT ×2 (12:06→23:45)
[2020-06-21] MEDS: Insulin Lispro 100 UNIT/ML 3 ML VIAL SUBCUT (12:06)
--- NOTE | 2020-06-21 12:10 | PM.PNGS ---
Subjective Subjective Date of Service: 06/21/20 <DULCE Lennon - Last Filed: 06/21/20 12:18> 06/21/20 <Cliff Dudley MD - Last Filed: 06/21/20 21:29> Patient reports: no new complaints <DULCE Lennon - Last Filed: 06/21/20 12:18> Interval history: Dragan states he is feeling well. He complains of discomfort but this is improved. He is passing gas but has not had a BM. <DULCE Lennon - Last Filed: 06/21/20 12:18> Physical Exam Vital Signs: Vital Signs: Last Vital Signs Temp 97.8 F 06/21/20 11:37 Pulse 66 06/21/20 11:37 Resp 18 06/21/20 11:37 BP 158/77 H 06/21/20 11:37 Pulse Ox 95 06/21/20 11:37 Body Mass Index 42.9 <DULCE Lennon - Last Filed: 06/21/20 12:18> Const: General: no acute distress, alert and awake <DULCE Lennon - Last Filed: 06/21/20 12:18> GI: Inspection: Yes normal to inspection <DULCE Lennon - Last Filed: 06/21/20 12:18> Palpation (GI): Soft to palpation and Tenderness to palpation present (GI) <DULCE Lennon - Last Filed: 06/21/20 12:18> Skin: Lesions: no lesions <DULCE Lennon - Last Filed: 06/21/20 12:18> Extrem: General: Yes no calf tenderness <DULCE Lennon - Last Filed: 06/21/20 12:18> Progress Note: A&P Assessment and plan (1) Acute diverticulitis: Problem details: ABD exam soft, only mild TTP. <DULCE Lennon - Last Filed: 06/21/20 12:18> Status: Acute <DULCE Lennon - Last Filed: 06/21/20 12:18> Assessment and Plan: We will advance his diet to clear liquids. Encourage ambulation <DULCE Lennon - Last Filed: 06/21/20 12:18> . General Surgery Attending - Pauly Dudley M.D. Patient was evaluated and examined at the bedside with Mr. Angel Spears PA-C. I confirm above findings and plan as documented. Agree w/ advance to clear liquids. <Cliff Dudley MD - Last Filed: 06/21/20 21:29> Fall Risk Details Current Medications: Current Medications Generic Name Dose Route Start Last Admin Trade Name Freq PRN Reason Stop Dose Admin Acetaminophen 650 mg 06/19/20 08:33 Acetaminophen 325 Mg Tablet PO Q6H PRN Pain, Mild (Pain Scale 1-3) Albuterol Sulfate 2 puff 06/19/20 10:42 Albuterol Sulfate 90 Mcg 8 Gm Inhaler INHALE Q4H PRN wheezing Atorvastatin Calcium 80 mg 06/20/20 09:00 06/21/20 09:01 Atorvastatin Calcium 80 Mg Tablet PO 80 mg DAILY [facility] Administration Clonazepam 1 mg 06/19/20 21:00 06/21/20 09:01 Clonazepam 1 Mg Tablet PO 1 mg BID [facility] Administration Clopidogrel Bisulfate 75 mg 06/20/20 09:00 06/21/20 09:01 Clopidogrel Bisulfate 75 Mg Tablet PO 75 mg DAILY [facility] Administration Divalproex Sodium 250 mg 06/19/20 10:45 06/21/20 08:59 Divalproex Sodium Er 250 Mg Tab.Er.24h PO 250 mg DAILY [facility] Administration Duloxetine HCl 60 mg 06/19/20 10:45 06/21/20 08:59 Duloxetine Hcl 60 Mg Capsule.Dr PO 60 mg DAILY [facility] Administration Famotidine 20 mg 06/19/20 21:00 06/21/20 09:00 Famotidine 20 Mg Tablet PO 20 mg BID [facility] Administration Gabapentin 100 mg 06/19/20 21:00 06/21/20 09:01 Gabapentin 100 Mg Capsule PO 100 mg BID [facility] Administration Heparin Sodium (Porcine) 5,000 unit 06/21/20 11:45 06/21/20 12:06 Heparin Sodium,Porcine 5,000 Unit/Ml Vial SUBCUT 5,000 unit Q12H [facility] Administration Levofloxacin 500 mg in 100 mls @ 100 mls/hr 06/19/20 23:00 06/20/20 23:39 Levaquin IV Infused Q24H [facility] Infusion Metronidazole 500 mg in 100 mls @ 100 mls/hr 06/19/20 11:00 06/21/20 12:06 Flagyl IV 100 mls/hr Q8H [facility] Administration Dextrose/Lactated Ringer's 1,000 mls @ 125 mls/hr 06/19/20 08:33 06/21/20 12:05 D5lr IVCONT 125 mls/hr .Q8H [facility] Administration Insulin Human Lispro 0 unit 06/20/20 16:30 06/21/20 12:06 Insulin Lispro 100 Unit/Ml 3 Ml Vial SUBCUT 2 unit QIDACHS [facility] Administration Protocol Lamotrigine 200 mg 06/19/20 10:45 06/21/20 08:59 Lamotrigine 100 Mg Tablet PO 200 mg BID [facility] Administration Losartan Potassium 100 mg 06/20/20 09:00 06/21/20 09:00 Losartan Potassium 50 Mg Tablet PO 100 mg DAILY [facility] Administration Protocol Metoprolol Tartrate 75 mg 06/19/20 11:00 06/21/20 08:59 Metoprolol Tartrate 50 Mg Tablet PO 75 mg BID [facility] Administration Protocol Morphine Sulfate 4 mg 06/19/20 08:33 06/19/20 20:21 Morphine Sulfate 4 Mg/Ml Cartridge IVPUSH 4 mg Q3H PRN Administration Pain, Severe (Pain Scale 7-10) Oxycodone HCl 5 mg 06/19/20 08:33 06/21/20 08:59 Oxycodone Hcl Immed Release 5 Mg Tablet PO 5 mg Q6H PRN Administration Pain, Moderate (Pain Scale 4-6 Pharmacy Consult 1 each 06/19/20 08:33 Consult Rx Perform Med Rec MISCELLANE ONCE PRN Consult order Risperidone 0.5 mg 06/19/20 10:42 Risperidone 0.5 Mg Tablet PO BID PRN Sleep Sodium Chloride 3 ml 06/19/20 08:33 12 09:02 0.9 % Sodium Chloride Flush 3 Ml Syringe IVFLUSH Not Given QSHIFT [facility] Tamsulosin HCl 0.4 mg 06/20/20 09:00 06/21/20 08:59 Tamsulosin Hcl 0.4 Mg Capsule PO 0.4 mg DAILY [facility] Administration Temazepam 15 mg 06/19/20 08:33 Temazepam 15 Mg Capsule PO BEDTIME PRN Insomnia <DULCE Lennon - Last Filed: 06/21/20 12:18> Time Spent With Patient Time: Total time spent is greater than 50% in coordination of care (as documented) at patient's floor/unit and/or counseling patient: <DULCE Lennon - Last Filed: 06/21/20 12:18> Time with patient: 15 - 24 minutes <Cliff Dudley MD - Last Filed: 06/21/20 21:29>
[2020-06-21 17:06] LABS: Glucose, Whole Blood 101 mg/dL (60-115)
[2020-06-21] MEDS: Morphine Sulfate 4 MG/ML CARTRIDGE IVPUSH (20:19)
[2020-06-21 21:30] LABS: Glucose, Whole Blood 102 mg/dL (60-115)
[2020-06-21] MEDS: levoFLOXacin/D5W 500 MG/100 ML PIGGYBACK 100 MG IV (23:45)
[2020-06-22] VITALS (10 sets, daily range): BP systolic 154–199; BP diastolic 77–96; PULSE 57–98; RESP 14–20; TEMP 35.9–36.9; O2SAT 94–98; BMI 42.9
--- NOTE | 2020-06-22 | CT_ITS ---
EXAMINATION: CT ABDOMEN AND PELVIS WITH CONTRAST CLINICAL INFORMATION: Follow up diverticular abscess COMPARISON: Previous CT of the abdomen and pelvis 06/19/2020 TECHNIQUE: Multidetector volumetric images were obtained from the superior aspect of the liver through the pubic symphysis following administration 85 mL of Omnipaque 350 intravenous contrast. Sagittal and coronal reformatted images were obtained on the technologist's workstation. Oral contrast: Yes This CT examination was performed using dose optimization techniques as appropriate, variously including the following: *Automated exposure control *Adjustment of mA and/or kV according to patient size (this includes techniques or standardized protocols for targeted exams where dose is matched to indication/reason for exam; i.e. extremities or head) *Use of iterative reconstruction technique DLP: 615 mGy-cm FINDINGS: LUNG BASES: There are small bilateral pleural effusions. LIVER, GALLBLADDER, AND BILIARY TREE: The liver is normal in size, shape, and attenuation. No focal hepatic lesion or biliary ductal dilatation is present. The gallbladder is unremarkable with no evidence of radiopaque gallstones, gallbladder wall thickening, or obvious pericholecystic inflammatory changes. PANCREAS: Unremarkable. SPLEEN: Unremarkable. ADRENAL GLANDS: Unremarkable. KIDNEYS AND URETERS: There is a fatty area in the peripheral posterior upper pole of the right kidney probably representing a junctional parenchymal defect. There is a small 5 mm low-attenuation lesion lesion in the midpole of probably representing a cyst. The kidneys are otherwise unremarkable. BLADDER: The bladder is well-distended. The bladder is displaced to the right by the sigmoid colon. GASTROINTESTINAL TRACT: There is increased wall thickening and stranding of the fat surrounding the sigmoid colon suggestive of worsening sigmoid diverticulitis. There is interval increase in the fluid collection adjacent to the sigmoid colon. This measures maximum 2.6 x 3.3 cm in transverse and AP dimension and approximately 6 cm in longitudinal dimension. There is a small amount of fluid seen adjacent to the left paracolic gutter the left pelvis and in the presacral space. This appears increased. No evidence of obstruction or free air is seen. Small and large bowel is otherwise unremarkable. The stomach is unremarkable. ABDOMINAL WALL: No significant hernia is appreciated. LYMPH NODES: Normal. VASCULAR: There is evidence of atherosclerotic disease. PELVIC VISCERA: Unremarkable. OSSEOUS STRUCTURES: There are degenerative changes of the spine and hip joints. CT/CT abdomen pelvis w con IMPRESSION: Worsening sigmoid diverticulitis. Interval increase in the air collection lateral to the proximal sigmoid colon suggestive of abscess. This measures 2.6 x 3.3 x 6 cm in dimension. Interval increase in small amount of fluid in the left paracolic gutter, left pelvis and presacral space. There is slight displacement of the bladder to the right from the sigmoid colon. No free air is seen. Findings will be communicated by the [place] work flow record retrieval specialist Inessa Tong.
[2020-06-22] MEDS: metroNIDAZOLE/NS 500 MG/100 ML PIGGYBACK 100 MG IV ×3 (02:48→18:35)
[2020-06-22 07:55] LABS: Glucose, Whole Blood 104 mg/dL (60-115)
[2020-06-22] MEDS: Losartan Potassium 50 MG TABLET 100 MG PO (09:21)
[2020-06-22] MEDS: Famotidine 20 MG TABLET PO ×2 (09:22→21:01)
[2020-06-22] MEDS: lamoTRIgine 100 MG TABLET 200 MG PO ×2 (09:22→21:02)
[2020-06-22] MEDS: Atorvastatin Calcium 80 MG TABLET PO (09:22)
[2020-06-22] MEDS: Metoprolol Tartrate 50 MG TABLET 75 MG PO ×2 (09:22→21:02)
[2020-06-22] MEDS: Tamsulosin HCL 0.4 MG CAPSULE PO (09:22)
[2020-06-22] MEDS: Gabapentin 100 MG CAPSULE PO ×2 (09:22→21:01)
[2020-06-22] MEDS: clonazePAM 1 MG TABLET PO ×2 (09:22→21:01)
[2020-06-22] MEDS: DULoxetine HCl 60 MG CAPSULE.DR PO (09:22)
[2020-06-22] MEDS: Clopidogrel Bisulfate 75 MG TABLET PO (09:22)
[2020-06-22] MEDS: Divalproex Sodium ER 250 MG TAB.ER.24H PO (09:22)
[2020-06-22] MEDS: 0.9 % Sodium Chloride Flush 3 ML SYRINGE IVFLUSH ×2 (09:25→23:28)
--- NOTE | 2020-06-22 10:03 | P.PNGS_ITS ---
Subjective Subjective Date of Service: 06/22/20 <Maranda Guajardo PA-C - Last Filed: 06/22/20 10:10> 06/22/20 <Balwinder Way MD - Last Filed: 06/22/20 13:21> Interval history: Notes from the weekend state patient felt improved with decreasing abdominal pain. This morning, patient reports persistent LLQ pain. He is also upset regarding his care by staff. Does not think he has had any clear liquids. <Maranda Guajardo PA-C - Last Filed: 06/22/20 10:10> Physical Exam Vital Signs: Vital Signs: Last Vital Signs Temp 97.8 F 06/22/20 08:00 Pulse 71 06/22/20 09:22 Resp 19 06/22/20 08:00 BP 195/94 H 06/22/20 09:22 Pulse Ox 97 06/22/20 08:00 Body Mass Index 42.9 <Maranda Guajardo PA-C - Last Filed: 06/22/20 10:10> Const: General: comfortable, no acute distress, alert and confusion <Goldie Guajardo PA-C - Last Filed: 06/22/20 10:10> Orientation/consciousness: patient oriented x3 and confusion <Maranda Guajardo PA-C - Last Filed: 06/22/20 10:10> Eyes: Sclerae: sclerae normal <Maranda Guajardo PA-C - Last Filed: 06/22/20 10:10> Resp: Effort & Inspection: normal respiratory effort <Maranda Guajardo PA-C - Last Filed: 06/22/20 10:10> Cardio: Rate: regular rate <Maranda Guajardo PA-C - Last Filed: 06/22/20 10:10> GI: Inspection: Yes normal to inspection and No distended <MIA Hall Last Filed: 06/22/20 10:10> Palpation (GI): Soft to palpation, Tenderness to palpation present (GI) (LLQ, moderate), no guarding, not rigid and No Rebound tenderness present <MIA Hall Last Filed: 06/22/20 10:10> Skin: General skin exam: no rashes or lesions noted <Maranda Guajardo PA-C - Last Filed: 06/22/20 10:10> Neuro: General: patient oriented x3 and confusion <JOSH Hall - Last Filed: 06/22/20 10:10> Extrem: General: Yes no clubbing, cyanosis or edema <Maranda Guajardo PA-C - Last Filed: 06/22/20 10:10> Progress Note: A&P Assessment and plan (1) Colonic diverticular abscess: Status: Acute <Maranda Guajardo PA-C - Last Filed: 06/22/20 10:10> Assessment and Plan: Improved over the weekend symptomatically with normalization of WBC count and was advanced to clear liquids. Now reporting persistent pain. VSS. Abd exam with moderate LLQ tenderness without peritoneal signs. Will obtain f/u CT scan abd/pelvis today to reassess abscess. Hold tray. Cont IV zosyn, IVF. <Maranda Guajardo PA-C - Last Filed: 06/22/20 10:10> (2) Acute diverticulitis: Status: Acute <Maranda Guajardo PA-C - Last Filed: 06/22/20 10:10> (3) Fall: Status: Acute <Maranda Guajardo PA-C - Last Filed: 06/22/20 10:10> (4) Dysuria: Status: Acute <Maranda Guajardo PA-C - Last Filed: 06/22/20 10:10> (5) Perforation of sigmoid colon due to diverticulitis: Status: Acute <Maranda Guajardo PA-C - Last Filed: 06/22/20 10:10> Assessment and Plan: Patient more comfortable this afternoon; the above noted and appreciated. Abdominal examination is improved with less tenderness and imp roved WBC. Continue IV antibiotics. <Balwinder Way MD - Last Filed: 06/22/20 13:21> Fall Risk Details Current Medications: Current Medications Generic Name Dose Route Start Last Admin Trade Name Freq PRN Reason Stop Dose Admin Acetaminophen 650 mg 06/19/20 08:33 Acetaminophen 325 Mg Tablet PO Q6H PRN Pain, Mild (Pain Scale 1-3) Albuterol Sulfate 2 puff 06/19/20 10:42 Albuterol Sulfate 90 Mcg 8 Gm Inhaler INHALE Q4H PRN wheezing Atorvastatin Calcium 80 mg 06/20/20 09:00 06/22/20 09:22 Atorvastatin Calcium 80 Mg Tablet PO 80 mg DAILY [facility] Administration Clonazepam 1 mg 06/19/20 21:00 06/22/20 09:22 Clonazepam 1 Mg Tablet PO 1 mg BID [facility] Administration Clopidogrel Bisulfate 75 mg 06/20/20 09:00 06/22/20 09:22 Clopidogrel Bisulfate 75 Mg Tablet PO 75 mg DAILY [facility] Administration Divalproex Sodium 250 mg 06/19/20 10:45 06/22/20 09:22 Divalproex Sodium Er 250 Mg Tab.Er.24h PO 250 mg DAILY [facility] Administration Duloxetine HCl 60 mg 06/19/20 10:45 06/22/20 09:22 Duloxetine Hcl 60 Mg Capsule.Dr PO 60 mg DAILY [facility] Administration Famotidine 20 mg 06/19/20 21:00 06/22/20 09:22 Famotidine 20 Mg Tablet PO 20 mg BID [facility] Administration Gabapentin 100 mg 06/19/20 21:00 06/22/20 09:22 Gabapentin 100 Mg Capsule PO 100 mg BID [facility] Administration Heparin Sodium (Porcine) 5,000 unit 06/21/20 11:45 06/21/20 23:45 Heparin Sodium,Porcine 5,000 Unit/Ml Vial SUBCUT 5,000 unit Q12H [facility] Administration Levofloxacin 500 mg in 100 mls @ 100 mls/hr 06/19/20 23:00 06/22/20 01:22 Levaquin IV Infused Q24H [facility] Infusion Metronidazole 500 mg in 100 mls @ 100 mls/hr 06/19/20 11:00 06/22/20 04:15 Flagyl IV Infused Q8H [facility] Infusion Insulin Human Lispro 0 unit 06/20/20 16:30 06/22/20 09:21 Insulin Lispro 100 Unit/Ml 3 Ml Vial SUBCUT Not Given QIDACHS [facility] Protocol Lamotrigine 200 mg 06/19/20 10:45 06/22/20 09:22 Lamotrigine 100 Mg Tablet PO 200 mg BID [facility] Administration Losartan Potassium 100 mg 06/20/20 09:00 06/22/20 09:21 Losartan Potassium 50 Mg Tablet PO 100 mg DAILY [facility] Administration Protocol Metoprolol Tartrate 75 mg 06/19/20 11:00 06/22/20 09:22 Metoprolol Tartrate 50 Mg Tablet PO 75 mg BID [facility] Administration Protocol Morphine Sulfate 4 mg 06/19/20 08:33 06/21/20 20:19 Morphine Sulfate 4 Mg/Ml Cartridge IVPUSH 4 mg Q3H PRN Administration Pain, Severe (Pain Scale 7-10) Oxycodone HCl 5 mg 06/19/20 08:33 06/21/20 08:59 Oxycodone Hcl Immed Release 5 Mg Tablet PO 5 mg Q6H PRN Administration Pain, Moderate (Pain Scale 4-6 Pharmacy Consult 1 each 06/19/20 08:33 Consult Rx Perform Med Rec MISCELLANE ONCE PRN Consult order Risperidone 0.5 mg 06/19/20 10:42 Risperidone 0.5 Mg Tablet PO BID PRN Sleep Sodium Chloride 3 ml 06/19/20 08:33 06/22/20 09:25 0.9 % Sodium Chloride Flush 3 Ml Syringe IVFLUSH 3 ml QSHIFT [facility] Administration Tamsulosin HCl 0.4 mg 06/20/20 09:00 06/22/20 09:22 Tamsulosin Hcl 0.4 Mg Capsule PO 0.4 mg DAILY [facility] Administration Temazepam 15 mg 06/19/20 08:33 Temazepam 15 Mg Capsule PO BEDTIME PRN Insomnia <Maranda Guajardo PA-C - Last Filed: 06/22/20 10:10> Time Spent With Patient Time: Total time spent is greater than 50% in coordination of care (as documented) at patient's floor/unit and/or counseling patient: <Maranda Guajardo PA-C - Last Filed: 06/22/20 10:10> Time with patient: 15 - 24 minutes <MIA Hall Last Filed: 06/22/20 10:10> No Severe Sepsis: No Severe Sepsis <MIA Hall Last Filed: 06/22/20 10:10>
[2020-06-22] MEDS: Lactated Ringers 1,000 ML 80 ML IVCONT (10:36)
[2020-06-22 11:07] LABS: Glucose, Whole Blood 103 mg/dL (60-115)
[2020-06-22] MEDS: Heparin Sodium,Porcine 5,000 UNIT/ML VIAL 5000 UNIT SUBCUT (12:50)
--- NOTE | 2020-06-22 14:09 | P.EN_ITS ---
Event Note Date of Service: 06/22/20 Event Note: F/u CT scan abd/pelvis showed increased wall thickening and strand ing of the fat surrounding the sigmoid colon suggestive of worsening sigmoid diverticulitis with interval increase in the fluid collection adjacent to the sigmoid colon. Discussed with Dr. Spicer- only very small increase of abscess since 06/19/20. Would hold off on drainage and was restarted on Plavix over the weekend. Will d/c Plavix until it is determined drainage or surgical intervention is not necessary. Cont NPO status, IVF, IV abx. Repeat CBC in am.
--- NOTE | 2020-06-22 16:06 | MHC.CM.PN ---
PER PHYSICIAN ROUNDS, PLAN IS FOR REPEAT CT SCAN. PATIENT STILL ON CLEARS. NO PLAN FOR DISCHARGE AT THIS TIME.
--- NOTE | 2020-06-22 16:10 | P.PNIM_ITS ---
Subjective Subjective Date of Service: 06/23/20 Interval History: Patient seen in follow-up of diverticulitis with abscess, patient complaining of persistent left lower quadrant pain and asking for pain medication, noted to have elevated blood pressure and pulse, denies nausea vomiting. General no headache, no dizziness, no fever chills. CVS no chest pain, no palpitation. Respiratory no cough , no sputum production no respiratory distress. Gastrointestinal no nausea, no vomiting, Left lower quadrant abdominal pain. Physical Exam Vital Signs: Vital Signs: Last Vital Signs Temp 97.0 F 06/22/20 15:51 Pulse 98 06/22/20 15:51 Resp 17 06/22/20 15:51 BP 188/85 H 06/22/20 15:51 Pulse Ox 97 06/22/20 15:51 Body Mass Index 42.9 General no acute distress. Neck supple no JVD. CVS regular rate rhythm, Respiratory lungs clear to auscultation, no respiratory distress, no wheeze, no rhonchi. Gastrointestinal abdomen soft, left lower quadrant tenderness with palpation, bowel sounds audible, no guarding , no rigidity. Extremities no clubbing, cyanosis or edema. Neuro nonfocal ,speech clear. Skin no rash Objective Data Current Medications Generic Name Dose Route Start Last Admin Trade Name Freq PRN Reason Stop Dose Admin Acetaminophen 650 mg 06/19/20 08:33 Acetaminophen 325 Mg Tablet PO Q6H PRN Pain, Mild (Pain Scale 1-3) Albuterol Sulfate 2 puff 06/19/20 10:42 Albuterol Sulfate 90 Mcg 8 Gm Inhaler INHALE Q4H PRN wheezing Atorvastatin Calcium 80 mg 06/20/20 09:00 06/22/20 09:22 Atorvastatin Calcium 80 Mg Tablet PO 80 mg DAILY [facility] Administration Clonazepam 1 mg 06/19/20 21:00 06/22/20 09:22 Clonazepam 1 Mg Tablet PO 1 mg BID [facility]ON Administration Divalproex Sodium 250 mg 06/19/20 10:45 06/22/20 09:22 Divalproex Sodium Er 250 Mg Tab.Er.24h PO 250 mg DAILY [facility] Administration Duloxetine HCl 60 mg 06/19/20 10:45 06/22/20 09:22 Duloxetine Hcl 60 Mg Capsule.Dr PO 60 mg DAILY [facility] Administration Famotidine 20 mg 06/19/20 21:00 06/22/20 09:22 Famotidine 20 Mg Tablet PO 20 mg BID [facility] Administration Gabapentin 100 mg 06/19/20 21:00 06/22/20 09:22 Gabapentin 100 Mg Capsule PO 100 mg BID [facility] Administration Heparin Sodium (Porcine) 5,000 unit 06/21/20 11:45 06/22/20 12:50 Heparin Sodium,Porcine 5,000 Unit/Ml Vial SUBCUT 5,000 unit Q12H [facility] Administration Levofloxacin 500 mg in 100 mls @ 100 mls/hr 06/19/20 23:00 06/22/20 01:22 Levaquin IV Infused Q24H [facility] Infusion Metronidazole 500 mg in 100 mls @ 100 mls/hr 06/19/20 11:00 06/22/20 15:23 Flagyl IV Infused Q8H [facility] Infusion Lactated Ringer's 1,000 mls @ 80 mls/hr 06/22/20 10:15 06/22/20 10:36 Lr IVCONT 80 mls/hr .[id number] [facility] Administration Insulin Human Lispro 0 unit 06/20/20 16:30 06/22/20 12:40 Insulin Lispro 100 Unit/Ml 3 Ml Vial SUBCUT Not Given QIDACHS [facility] Protocol Lamotrigine 200 mg 06/19/20 10:45 06/22/20 09:22 Lamotrigine 100 Mg Tablet PO 200 mg BID AARON Administration Losartan Potassium 100 mg 06/20/20 09:00 06/22/20 09:21 Losartan Potassium 50 Mg Tablet PO 100 mg DAILY [facility] Administration Protocol Metoprolol Tartrate 75 mg 06/19/20 11:00 06/22/20 09:22 Metoprolol Tartrate 50 Mg Tablet PO 75 mg BID [facility] Administration Protocol Morphine Sulfate 4 mg 06/19/20 08:33 06/21/20 20:19 Morphine Sulfate 4 Mg/Ml Cartridge IVPUSH 4 mg Q3H PRN Administration Pain, Severe (Pain Scale 7-10) Oxycodone HCl 5 mg 06/19/20 08:33 06/21/20 08:59 Oxycodone Hcl Immed Release 5 Mg Tablet PO 5 mg Q6H PRN Administration Pain, Moderate (Pain Scale 4-6 Pharmacy Consult 1 each 06/19/20 08:33 Consult Rx Perform Med Rec MISCELLANE ONCE PRN Consult order Risperidone 0.5 mg 06/19/20 10:42 Risperidone 0.5 Mg Tablet PO BID PRN Sleep Sodium Chloride 3 ml 06/19/20 08:33 06/22/20 09:25 0.9 % Sodium Chloride Flush 3 Ml Syringe IVFLUSH 3 ml QSHIFT [facility] Administration Tamsulosin HCl 0.4 mg 06/20/20 09:00 06/22/20 09:22 Tamsulosin Hcl 0.4 Mg Capsule PO 0.4 mg DAILY [facility] Administration Temazepam 15 mg 06/19/20 08:33 Temazepam 15 Mg Capsule PO BEDTIME PRN Insomnia Labs CBC & Chem 7: 06/23/20 06:04 06/23/20 06:04 Microbiology Microbiology Results: Microbiology 06/19/20 01:35 Blood - Venous Blood Culture - Preliminary No growth after 48 hours. 06/19/20 01:35 Blood - Venous Blood Culture - Preliminary No growth after 48 hours. Assessment and Plan (1) Colonic diverticular abscess: Status: Acute (2) Fall: Status: Acute (3) Dysuria: Status: Acute (4) Hypertension: Status: Acute Assessment and Plan: 64-year-old with history coronary artery disease, stroke, anxiety, diabetes BPH, dyslipidemia who presented to the emergency department with weakness, fall, abdominal pain found to have diverticulitis with abscess Diverticulitis with abscess patient did not meet sepsis criteria on admission despite elevated lactic acid, due to persistent abdominal pain a repeat CT scan of abdomen and pelvis was obtained that showed mild worsening of abscess, surgery and IR to decide for CT guided drainage , heparin and Plavix are held for possible drainage, WBC normalized, no fever but patient still in pain will change pain medication to IV Dilaudid and discontinue IV morphine. blood culture showed no growth. Continue IV levofloxacin, and Flagyl further management per surgical team. Dysuria--resolved, UA normal. Diabetes Blood sugars stable , patient is NPO, Hold metformin Fall for likely related to weakness and infection will obtain PT eval prior to d/c CAD s/p stent hold Plavix for possible IR drainage, continue statin,and metoprolol, will find out when stent was placed. Hypertension Continue losartan, And metoprolol home dose but noted to have elevated blood pressure and pulse likely related to pain will adjust pain medication and follow BP closely BPH Continue Flomax Mood Continue risperidone, lamotrigine, duloxetine, Depakote, and clonazepam DVT prophylaxis with mechanical device
[2020-06-22 16:31] LABS: Glucose, Whole Blood 102 mg/dL (60-115)
[2020-06-22 20:36] LABS: Glucose, Whole Blood 95 mg/dL (60-115)
--- NOTE | 2020-06-22 21:45 | PC.RT ---
pt is confused and upset, pt refused obstructive sleep apnea O2 and Respiratory unable to place home CPAP on pt.
[2020-06-22] MEDS: levoFLOXacin/D5W 500 MG/100 ML PIGGYBACK 100 MG IV (23:24)
[2020-06-23] VITALS (11 sets, daily range): BP systolic 156–190; BP diastolic 65–106; PULSE 57–67; RESP 16–18; TEMP 36.1–37; O2SAT 94–98
[2020-06-23] MEDS: metroNIDAZOLE/NS 500 MG/100 ML PIGGYBACK 100 MG IV ×3 (03:50→19:13)
[2020-06-23 06:30] LABS: MANUAL DIFF FLAG NO
--- NOTE | 2020-06-23 06:33 | PC.NURSE ---
bp still up at 4 am 182/97left arm manual and 184/100 on right arm md notified pt receved hs metoprolol will monitor
[2020-06-23 06:49] LABS: Basophils Percent Auto 0.4 % (0-2); Eosinophils Absolute Auto 0.2 X10*3/uL (0.0-0.4); Eosinophils Percent Auto 3.9 % (0-4); Hematocrit 32.7 % (42-52); Hemoglobin 11.1 g/dl (14.0-18.0); Imm Gran Abs Auto 0.03 X10*3/uL (0.00-0.03); Imm Gran Pct Auto 0.5 % (0.0-0.4); Lymphocytes Absolute Auto 1.5 X10*3/uL (1.2-4.9); Lymphocytes Percent Auto 25.9 % (20-40); Mean Corpuscular HGB Conc 33.9 g/dl (31.0-36.0); Mean Corpuscular Hemoglobin 29.5 pg (27.0-33.0); Mean Platelet Volume 9.8 fL (9.4-12.4); Monocytes Absolute Auto 0.6 X10*3/uL (0.1-1.2); Monocytes Percent Auto 10.8 % (2-11); Neutrophils Absolute Auto 3.3 X10*3/uL (2.0-8.3); Neutrophils Percent Auto 58.5 % (45-73); Platelet Count 215 X10*3/uL (160-400); Red Blood Count 3.76 X10*6/uL (4.60-5.80); White Blood Count 5.6 X10*3/uL (4.8-10.8)
[2020-06-23 07:06] LABS: Anion Gap 13 (12-20); Blood Urea Nitrogen 4 mg/dL (9-16); Calcium 7.9 mg/dL (8.4-10.2); Carbon Dioxide 29 mmol/L (22-29); Chloride 104 mmol/L (96-108); Creatinine Clr Calc Pharmacy 138.3; Estimated Glomerular Filt Rate > 60; Glucose Random 83 mg/dL (60-115); Potassium 3.5 mmol/l (3.3-5.1); Sodium 142 mmol/L (135-145)
--- NOTE | 2020-06-23 07:36 | PM.PNGS ---
Subjective Subjective Date of Service: 06/23/20 <Maranda Guajardo PA-C - Last Filed: 06/23/20 07:43> 06/23/20 <Balwinder Way MD - Last Filed: 06/23/20 07:51> Patient reports: no new complaints <Maranda Guajardo PA-C - Last Filed: 06/23/20 07:43> Interval history: Sleepy this morning. Feels ok, no better, no worse . <Maranda Guajardo PA-C - Last Filed: 06/23/20 07:43> Physical Exam Vital Signs: Vital Signs: Last Vital Signs Temp 98.6 F 06/23/20 07:18 Pulse 62 06/23/20 07:18 Resp 17 06/23/20 07:18 BP 190/94 H 06/23/20 07:18 Pulse Ox 98 06/23/20 07:18 Body Mass Index 42.9 <Maranda Guajardo PA-C - Last Filed: 06/23/20 07:43> Const: General: comfortable and no acute distress <Maranda Guajardo PA-C - Last Filed: 06/23/20 07:43> Orientation/consciousness: patient oriented x3 <Maranda Guajardo PA-C - Last Filed: 06/23/20 07:43> Resp: Effort & Inspection: normal respiratory effort <Maranda Guajardo PA-C - Last Filed: 06/23/20 07:43> GI: Inspection: No distended <Maranda Guajardo PA-C - Last Filed: 06/23/20 07:43> Palpation (GI): Soft to palpation, not firm, Tenderness to palpation present (GI) (moderate suprapubic tenderness), no guarding and No Rebound tenderness present <Maranda Guajardo PA-C - Last Filed: 06/23/20 07:43> Skin: General skin exam: no rashes or lesions noted <Maranda Guajardo PA-C - Last Filed: 06/23/20 07:43> Neuro: General: patient oriented x3 <Maranda Guajardo PA-C - Last Filed: 06/23/20 07:43> Extrem: General: Yes no clubbing, cyanosis or edema <Maranda Guajardo PA-C - Last Filed: 06/23/20 07:43> Progress Note: A&P Assessment and plan (1) Colonic diverticular abscess: Status: Acute <Maranda Guajardo PA-C - Last Filed: 06/23/20 07:43> Assessment and Plan: F/u CT scan yesterday reveals small increase in abscess size- reviewed with Dr. Spicer who recommended to continue to hold off on drainage given small increase and on Plavix. Abdomen remains tender suprapubically and LLQ but ?improving. No peritoneal signs. WBC remains normal. Will cont NPO status, IVF, IV abx for now. Hold Plavix. If no improvement over the next day or so, may require drainage or surgical intervention with laparotomy and sigmoid resection. Hospitalists following for medical comorbidities. <Maranda Guajardo PA-C - Last Filed: 06/23/20 07:43> CT abdomen reviewed with radiology, felt not much bigger. WBC remains low. Abdominal exam unchanged, tender in the left lower abdomen. Continue IV antibiotics. Agree with the above assessment and plan. <Balwinder Way MD - Last Filed: 06/23/20 07:51> (2) Acute diverticulitis: Status: Acute <Maranda Guajardo PA-C - Last Filed: 06/23/20 07:43> (3) Dysuria: Status: Acute <Maranda Guajardo PA-C - Last Filed: 06/23/20 07:43> (4) Hypertension: Status: Acute <Maranda Guajardo PA-C - Last Filed: 06/23/20 07:43> (5) Fall: Status: Acute <Maranda Guajardo PA-C - Last Filed: 06/23/20 07:43> Fall Risk Details Current Medications: Current Medications Generic Name Dose Route Start Last Admin Trade Name Freq PRN Reason Stop Dose Admin Acetaminophen 650 mg 06/19/20 08:33 Acetaminophen 325 Mg Tablet PO Q6H PRN Pain, Mild (Pain Scale 1-3) Albuterol Sulfate 2 puff 06/19/20 10:42 Albuterol Sulfate 90 Mcg 8 Gm Inhaler INHALE Q4H PRN wheezing Atorvastatin Calcium 80 mg 06/20/20 09:00 06/22/20 09:22 Atorvastatin Calcium 80 Mg Tablet PO 80 mg DAILY [facility] Administration Clonazepam 1 mg 06/19/20 21:00 06/22/20 21:01 Clonazepam 1 Mg Tablet PO 1 mg BID [facility]ON Administration Divalproex Sodium 250 mg 06/19/20 10:45 06/22/20 09:22 Divalproex Sodium Er 250 Mg Tab.Er.24h PO 250 mg DAILY [facility] Administration Duloxetine HCl 60 mg 06/19/20 10:45 06/22/20 09:22 Duloxetine Hcl 60 Mg Capsule.Dr PO 60 mg DAILY [facility] Administration Famotidine 20 mg 06/19/20 21:00 06/22/20 21:01 Famotidine 20 Mg Tablet PO 20 mg BID [facility]ON Administration Gabapentin 100 mg 06/19/20 21:00 06/22/20 21:01 Gabapentin 100 Mg Capsule PO 100 mg BID [facility]ON Administration Heparin Sodium (Porcine) 5,000 unit 06/21/20 11:45 06/22/20 12:50 Heparin Sodium,Porcine 5,000 Unit/Ml Vial SUBCUT 5,000 unit Q12H [facility] Administration Hydromorphone HCl 1 mg 06/22/20 16:14 Hydromorphone Hcl 1 Mg/Ml Syringe IVPUSH Q4H PRN Pain, Severe (Pain Scale 7-10) Levofloxacin 500 mg in 100 mls @ 100 mls/hr 06/19/20 23:00 06/23/20 00:35 Levaquin IV Infused Q24H [facility] Infusion Metronidazole 500 mg in 100 mls @ 100 mls/hr 06/19/20 11:00 06/23/20 05:05 Flagyl IV Infused Q8H [facility] Infusion Lactated Ringer's 1,000 mls @ 80 mls/hr 06/22/20 10:15 06/23/20 05:06 Lr IVCONT Not Given .[id number] [facility] Insulin Human Lispro 0 unit 06/20/20 16:30 06/22/20 21:00 Insulin Lispro 100 Unit/Ml 3 Ml Vial SUBCUT Not Given QIDACHS [facility] Protocol Lamotrigine 200 mg 06/19/20 10:45 06/22/20 21:02 Lamotrigine 100 Mg Tablet PO 200 mg BID [facility] Administration Losartan Potassium 100 mg 06/20/20 09:00 06/22/20 09:21 Losartan Potassium 50 Mg Tablet PO 100 mg DAILY [facility] Administration Protocol Metoprolol Tartrate 75 mg 06/19/20 11:00 06/22/20 21:02 Metoprolol Tartrate 50 Mg Tablet PO 75 mg BID [facility] Administration Protocol Oxycodone HCl 5 mg 06/19/20 08:33 06/21/20 08:59 Oxycodone Hcl Immed Release 5 Mg Tablet PO 5 mg Q6H PRN Administration Pain, Moderate (Pain Scale 4-6 Pharmacy Consult 1 each 06/19/20 08:33 Consult Rx Perform Med Rec MISCELLANE ONCE PRN Consult order Risperidone 0.5 mg 06/19/20 10:42 Risperidone 0.5 Mg Tablet PO BID PRN Sleep Sodium Chloride 3 ml 06/19/20 08:33 06/22/20 23:28 0.9 % Sodium Chloride Flush 3 Ml Syringe IVFLUSH 3 ml QSHIFT [facility] Administration Tamsulosin HCl 0.4 mg 06/20/20 09:00 06/22/20 09:22 Tamsulosin Hcl 0.4 Mg Capsule PO 0.4 mg DAILY [facility] Administration Temazepam 15 mg 06/19/20 08:33 Temazepam 15 Mg Capsule PO BEDTIME PRN Insomnia <Maranda Guajardo PA-C - Last Filed: 06/23/20 07:43> Time Spent With Patient Time: Total time spent is greater than 50% in coordination of care (as documented) at patient's floor/unit and/or counseling patient: <Maranda Guajardo PA-C - Last Filed: 06/23/20 07:43> Time with patient: less than 15 minutes <Maranda Guajardo PA-C - Last Filed: 06/23/20 07:43> 15 - 24 minutes <Balwinder Way MD - Last Filed: 06/23/20 07:51>
[2020-06-23 08:31] LABS: Glucose, Whole Blood 87 mg/dL (60-115)
[2020-06-23] MEDS: 0.9 % Sodium Chloride Flush 3 ML SYRINGE IVFLUSH ×3 (08:31→19:14)
[2020-06-23] MEDS: Lactated Ringers 1,000 ML 80 ML IVCONT (08:31)
[2020-06-23] MEDS: DULoxetine HCl 60 MG CAPSULE.DR PO (08:33)
[2020-06-23] MEDS: clonazePAM 1 MG TABLET PO ×2 (08:33→21:20)
[2020-06-23] MEDS: Metoprolol Tartrate 50 MG TABLET 75 MG PO ×2 (08:34→21:20)
[2020-06-23] MEDS: Losartan Potassium 50 MG TABLET 100 MG PO (08:34)
[2020-06-23] MEDS: Gabapentin 100 MG CAPSULE PO ×2 (08:34→21:19)
[2020-06-23] MEDS: Tamsulosin HCL 0.4 MG CAPSULE PO (08:34)
[2020-06-23] MEDS: Divalproex Sodium ER 250 MG TAB.ER.24H PO (08:34)
[2020-06-23] MEDS: Atorvastatin Calcium 80 MG TABLET PO (08:34)
[2020-06-23] MEDS: lamoTRIgine 100 MG TABLET 200 MG PO ×2 (08:34→21:19)
[2020-06-23] MEDS: Famotidine 20 MG TABLET PO ×2 (08:35→21:19)
[2020-06-23] MEDS: amLODIPine Besylate 5 MG TABLET PO (08:36)
[2020-06-23] MEDS: iohexoL 350 MG/ML 100 ML INFUS..BTL IV (09:41)
--- NOTE | 2020-06-23 10:35 | HO.PM.IMPN ---
Subjective Subjective Date of Service: 06/23/20 Interval History: patient seen in follow-up of acute diverticulitis, patient denies abdominal pain has been passing gas denies nausea, vomiting, feels better, no acute overnight issues. Review of Systems General no headache, no dizziness, no fever, no chills. CVS no chest pain, no palpitation. Respiratory no cough, no shortness of breath. Gastrointestinal no nausea, no vomiting, no abdominal pain Physical Exam Vital Signs: Vital Signs: Last Vital Signs Temp 98.6 F 06/23/20 07:18 Pulse 62 06/23/20 08:36 Resp 17 06/23/20 07:18 BP 190/94 H 06/23/20 08:36 Pulse Ox 98 06/23/20 07:18 Body Mass Index 42.9 General patient resting comfortably in no acute distress. Neck supple no JVD. CVS regular rate rhythm, Respiratory lungs clear to auscultation, no respiratory distress Gastrointestinal abdomen soft, nontender, bowel sounds audible, no guarding , no rigidity. Extremities no clubbing cyanosis or edema. Neuro nonfocal, speech clear. Skin no rash Objective Data Current Medications Generic Name Dose Route Start Last Admin Trade Name Freq PRN Reason Stop Dose Admin Acetaminophen 650 mg 06/19/20 08:33 Acetaminophen 325 Mg Tablet PO Q6H PRN Pain, Mild (Pain Scale 1-3) Albuterol Sulfate 2 puff 06/19/20 10:42 Albuterol Sulfate 90 Mcg 8 Gm Inhaler INHALE Q4H PRN wheezing Amlodipine Besylate 5 mg 06/23/20 09:00 06/23/20 08:36 Amlodipine Besylate 5 Mg Tablet PO 5 mg DAILY [facility] Administration Protocol Atorvastatin Calcium 80 mg 06/20/20 09:00 06/23/20 08:34 Atorvastatin Calcium 80 Mg Tablet PO 80 mg DAILY [facility] Administration Clonazepam 1 mg 06/19/20 21:00 06/23/20 08:33 Clonazepam 1 Mg Tablet PO 1 mg BID [facility] Administration Divalproex Sodium 250 mg 06/19/20 10:45 06/23/20 08:34 Divalproex Sodium Er 250 Mg Tab.Er.24h PO 250 mg DAILY [facility] Administration Duloxetine HCl 60 mg 06/19/20 10:45 06/23/20 08:33 Duloxetine Hcl 60 Mg Capsule.Dr PO 60 mg DAILY [facility] Administration Famotidine 20 mg 06/19/20 21:00 06/23/20 08:35 Famotidine 20 Mg Tablet PO 20 mg BID [facility] Administration Gabapentin 100 mg 06/19/20 21:00 06/23/20 08:34 Gabapentin 100 Mg Capsule PO 100 mg BID [facility] Administration Heparin Sodium (Porcine) 5,000 unit 06/21/20 11:45 06/22/20 12:50 Heparin Sodium,Porcine 5,000 Unit/Ml Vial SUBCUT 5,000 unit Q12H [facility] Administration Hydromorphone HCl 1 mg 06/22/20 16:14 Hydromorphone Hcl 1 Mg/Ml Syringe IVPUSH Q4H PRN Pain, Severe (Pain Scale 7-10) Levofloxacin 500 mg in 100 mls @ 100 mls/hr 06/19/20 23:00 06/23/20 00:35 Levaquin IV Infused Q24H [facility] Infusion Metronidazole 500 mg in 100 mls @ 100 mls/hr 06/19/20 11:00 06/23/20 05:05 Flagyl IV Infused Q8H [facility] Infusion Dextrose/Sodium Chloride 1,000 mls @ 80 mls/hr 06/23/20 10:45 D51/2ns IVCONT .[id number] [facility] Insulin Human Lispro 0 unit 06/20/20 16:30 06/23/20 08:42 Insulin Lispro 100 Unit/Ml 3 Ml Vial SUBCUT Not Given QIDACHS [facility] Protocol Lamotrigine 200 mg 06/19/20 10:45 06/23/20 08:34 Lamotrigine 100 Mg Tablet PO 200 mg BID [facility] Administration Losartan Potassium 100 mg 06/20/20 09:00 06/23/20 08:34 Losartan Potassium 50 Mg Tablet PO 100 mg DAILY [facility] Administration Protocol Metoprolol Tartrate 75 mg 06/19/20 11:00 06/23/20 08:34 Metoprolol Tartrate 50 Mg Tablet PO 75 mg BID [facility] Administration Protocol Oxycodone HCl 5 mg 06/19/20 08:33 06/21/20 08:59 Oxycodone Hcl Immed Release 5 Mg Tablet PO 5 mg Q6H PRN Administration Pain, Moderate (Pain Scale 4-6 Pharmacy Consult 1 each 06/19/20 08:33 Consult Rx Perform Med Rec MISCELLANE ONCE PRN Consult order Risperidone 0.5 mg 06/19/20 10:42 Risperidone 0.5 Mg Tablet PO BID PRN Sleep Sodium Chloride 3 ml 06/19/20 08:33 06/23/20 08:31 0.9 % Sodium Chloride Flush 3 Ml Syringe IVFLUSH 3 ml QSHIFT [facility] Administration Tamsulosin HCl 0.4 mg 06/20/20 09:00 06/23/20 08:34 Tamsulosin Hcl 0.4 Mg Capsule PO 0.4 mg DAILY [facility] Administration Temazepam 15 mg 06/19/20 08:33 Temazepam 15 Mg Capsule PO BEDTIME PRN Insomnia Labs CBC & Chem 7: 06/23/20 06:04 06/23/20 06:04 Microbiology Microbiology Results: Microbiology 06/19/20 01:35 Blood - Venous Blood Culture - Preliminary No growth after 48 hours. 06/19/20 01:35 Blood - Venous Blood Culture - Preliminary No growth after 48 hours. Assessment and Plan (1) Hypertension: Status: Acute (2) Colonic diverticular abscess: Status: Acute (3) Fall: Status: Acute (4) Dysuria: Status: Acute (5) Acute diverticulitis: Status: Acute (6) Perforation of sigmoid colon due to diverticulitis: Status: Acute Assessment and Plan: 64-year-old with history coronary artery disease, stroke, anxiety, diabetes BPH, dyslipidemia who presented to the emergency department with weakness, fall, abdominal pain found to have diverticulitis with abscess Diverticulitis with abscess no abdominal pain this a.m. patient feeling better,repeat CT scan of abdomen and pelvis showed mild worsening of abscess, surgery and IR to decide for CT guided drainage , will continue to hold heparin and Plavix for possible drainage, WBC normalized, no fever continue IV Dilaudid for pain control, blood culture showed no growth. Continue IV levofloxacin, and Flagyl further management per surgical team. Dysuria--resolved, UA normal. Diabetes Blood sugars stable , patient is NPO, Hold metformin Fall likely related to weakness and infection will obtain PT eval prior to d/c CAD s/p stent hold Plavix for possible IR drainage, continue statin,and metoprolol, patient had stent placed few years ago has a knockout man at [facility], patient is not being followed closely by Cardiology, will recommend to have outpatient follow-up with Cardiology after discharge. Hypertension Continue losartan, and metoprolol home dose but noted to have elevated blood pressure and pulse despite adjusting pain medication therefore will add Norvasc and follow BP. BPHg pain medicine Continue Flomax Mood Continue risperidone, lamotrigine, duloxetine, Depakote, and clonazepam DVT prophylaxis with mechanical device
[2020-06-23 11:14] LABS: Glucose, Whole Blood 94 mg/dL (60-115)
[2020-06-23] MEDS: Dextrose 5 % and 0.45 % NaCl 1,000 ML 80 ML IVCONT (12:43)
[2020-06-23 16:50] LABS: Glucose, Whole Blood 117 mg/dL (60-115)
[2020-06-23 20:31] LABS: Glucose, Whole Blood 107 mg/dL (60-115)
[2020-06-23] MEDS: levoFLOXacin/D5W 500 MG/100 ML PIGGYBACK 100 MG IV (23:10)
[2020-06-24] VITALS (20 sets, daily range): BP systolic 147–212; BP diastolic 76–102; PULSE 57–89; RESP 16–20; TEMP 36.1–36.7; O2SAT 94–97
[2020-06-24] MEDS: hydrALAZINE HCl 20 MG/ML VIAL 5 MG IVPUSH ×2 (00:22→02:29)
[2020-06-24] MEDS: Dextrose 5 % and 0.45 % NaCl 1,000 ML 80 ML IVCONT ×2 (02:55→15:36)
[2020-06-24] MEDS: metroNIDAZOLE/NS 500 MG/100 ML PIGGYBACK 100 MG IV ×3 (02:55→18:23)
--- NOTE | 2020-06-24 03:43 | PC.NURSE ---
pt's bp at 0022 was 212/96, 5 mg of iv hydralazine ordered and administered, pt's bp after an hour of administration was 191/83. another dose of 5 mg iv hydralazine ordered and administered at 0229, pt's bp was 206/90, after and hour pt's bp was 175/89. dr snow also ordered nitroglycerin but she said to hold for now.
[2020-06-24] MEDS: 0.9 % Sodium Chloride Flush 3 ML SYRINGE IVFLUSH ×2 (07:06→23:30)
[2020-06-24] MEDS: oxyCODONE HCl Immed Release 5 MG TABLET PO ×2 (07:07→13:31)
--- NOTE | 2020-06-24 07:30 | P.PNGS_ITS ---
Subjective Subjective Date of Service: 06/24/20 Interval history: Complains of headache, denies abdominal pain, nausea or vomiting. Passing flatus, no BM. Physical Exam Vital Signs: Vital Signs: Last Vital Signs Temp 97.0 F 06/24/20 03:29 Pulse 61 06/24/20 03:29 Resp 16 06/24/20 03:29 BP 175/89 H 06/24/20 03:29 Pulse Ox 97 06/24/20 03:29 Body Mass Index 42.9 Const: General: cooperative, comfortable and no acute distress Resp: Effort & Inspection: normal respiratory effort, no audible wheezes, no cough and not labored GI: Palpation (GI): Soft to palpation, nontender, no guarding, not rigid and No hepatosplenomegaly present Auscultation: normal bowel sounds Skin: General skin exam: no rashes or lesions noted Neuro: General: moves all extremities Progress Note: A&P Assessment and plan (1) Perforation of sigmoid colon due to diverticulitis: Status: Acute Assessment and Plan: Mr. Bhatt reports no abdominal pain this morning and feels hungry. He does complain of a headache. Abdominal exam is soft, non-distended and non-tender. No peritoneal signs are elicited. Plan: Will start a diet this morning. OOB with assistance. Fall Risk Details Current Medications: Current Medications Generic Name Dose Route Start Last Admin Trade Name Freq PRN Reason Stop Dose Admin Acetaminophen 650 mg 06/19/20 08:33 Acetaminophen 325 Mg Tablet PO Q6H PRN Pain, Mild (Pain Scale 1-3) Albuterol Sulfate 2 puff 06/19/20 10:42 Albuterol Sulfate 90 Mcg 8 Gm Inhaler INHALE Q4H PRN wheezing Amlodipine Besylate 5 mg 06/23/20 09:00 06/23/20 08:36 Amlodipine Besylate 5 Mg Tablet PO 5 mg DAILY [facility] Administration Protocol Atorvastatin Calcium 80 mg 06/20/20 09:00 06/23/20 08:34 Atorvastatin Calcium 80 Mg Tablet PO 80 mg DAILY [facility] Administration Clonazepam 1 mg 06/19/20 21:00 06/23/20 21:20 Clonazepam 1 Mg Tablet PO 1 mg BID [facility] Administration Divalproex Sodium 250 mg 06/19/20 10:45 06/23/20 08:34 Divalproex Sodium Er 250 Mg Tab.Er.24h PO 250 mg DAILY [facility] Administration Duloxetine HCl 60 mg 06/19/20 10:45 06/23/20 08:33 Duloxetine Hcl 60 Mg Capsule.Dr PO 60 mg DAILY [facility] Administration Famotidine 20 mg 06/19/20 21:00 06/23/20 21:19 Famotidine 20 Mg Tablet PO 20 mg BID [facility] Administration Gabapentin 100 mg 06/19/20 21:00 06/23/20 21:19 Gabapentin 100 Mg Capsule PO 100 mg BID [facility] Administration Heparin Sodium (Porcine) 5,000 unit 06/21/20 11:45 06/22/20 12:50 Heparin Sodium,Porcine 5,000 Unit/Ml Vial SUBCUT 5,000 unit Q12H [facility] Administration Hydromorphone HCl 1 mg 06/22/20 16:14 Hydromorphone Hcl 1 Mg/Ml Syringe IVPUSH Q4H PRN Pain, Severe (Pain Scale 7-10) Levofloxacin 500 mg in 100 mls @ 100 mls/hr 06/19/20 23:00 06/24/20 00:28 Levaquin IV Infused Q24H [facility] Infusion Metronidazole 500 mg in 100 mls @ 100 mls/hr 06/19/20 11:00 06/24/20 04:01 Flagyl IV Infused Q8H [facility] Infusion Dextrose/Sodium Chloride 1,000 mls @ 80 mls/hr 06/23/20 10:45 06/24/20 02:55 D51/2ns IVCONT 80 mls/hr .[id number] [facility] Administration Insulin Human Lispro 0 unit 06/20/20 16:30 06/23/20 21:28 Insulin Lispro 100 Unit/Ml 3 Ml Vial SUBCUT Not Given QIDACHS [facility] Protocol Lamotrigine 200 mg 06/19/20 10:45 06/23/20 21:19 Lamotrigine 100 Mg Tablet PO 200 mg BID [facility] Administration Losartan Potassium 100 mg 06/20/20 09:00 06/23/20 08:34 Losartan Potassium 50 Mg Tablet PO 100 mg DAILY [facility] Administration Protocol Metoprolol Tartrate 75 mg 06/19/20 11:00 06/23/20 21:20 Metoprolol Tartrate 50 Mg Tablet PO 75 mg BID [facility] Administration Protocol Oxycodone HCl 5 mg 06/19/20 08:33 06/24/20 07:07 Oxycodone Hcl Immed Release 5 Mg Tablet PO 5 mg Q6H PRN Administration Pain, Moderate (Pain Scale 4-6 Pharmacy Consult 1 each 06/19/20 08:33 Consult Rx Perform Med Rec MISCELLANE ONCE PRN Consult order Risperidone 0.5 mg 06/19/20 10:42 Risperidone 0.5 Mg Tablet PO BID PRN Sleep Sodium Chloride 3 ml 06/19/20 08:33 06/24/20 07:06 0.9 % Sodium Chloride Flush 3 Ml Syringe IVFLUSH 3 ml QSHIFT [facility] Administration Tamsulosin HCl 0.4 mg 06/20/20 09:00 06/23/20 08:34 Tamsulosin Hcl 0.4 Mg Capsule PO 0.4 mg DAILY [facility] Administration Temazepam 15 mg 06/19/20 08:33 Temazepam 15 Mg Capsule PO BEDTIME PRN Insomnia Time Spent With Patient Time: Total time spent is greater than 50% in coordination of care (as documented) at patient's floor/unit and/or counseling patient: Time with patient: 15 - 24 minutes
[2020-06-24 08:11] LABS: Glucose, Whole Blood 117 mg/dL (60-115)
[2020-06-24] MEDS: Atorvastatin Calcium 80 MG TABLET PO (08:44)
[2020-06-24] MEDS: Metoprolol Tartrate 50 MG TABLET 75 MG PO ×2 (08:44→21:12)
[2020-06-24] MEDS: Tamsulosin HCL 0.4 MG CAPSULE PO (08:45)
[2020-06-24] MEDS: DULoxetine HCl 60 MG CAPSULE.DR PO (08:45)
[2020-06-24] MEDS: lamoTRIgine 100 MG TABLET 200 MG PO ×2 (08:45→21:12)
[2020-06-24] MEDS: Divalproex Sodium ER 250 MG TAB.ER.24H PO (08:45)
[2020-06-24] MEDS: amLODIPine Besylate 5 MG TABLET PO (08:45)
[2020-06-24] MEDS: clonazePAM 1 MG TABLET PO ×2 (08:45→21:12)
[2020-06-24] MEDS: Losartan Potassium 50 MG TABLET 100 MG PO (08:46)
[2020-06-24] MEDS: Gabapentin 100 MG CAPSULE PO ×2 (08:46→21:12)
[2020-06-24] MEDS: Famotidine 20 MG TABLET PO ×2 (08:46→21:12)
[2020-06-24] MEDS: Insulin Lispro 100 UNIT/ML 3 ML VIAL SUBCUT (11:33)
[2020-06-24 11:46] LABS: Glucose, Whole Blood 186 mg/dL (60-115)
[2020-06-24 16:22] LABS: Glucose, Whole Blood 113 mg/dL (60-115)
[2020-06-24 20:29] LABS: Glucose, Whole Blood 143 mg/dL (60-115)
[2020-06-24] MEDS: levoFLOXacin/D5W 500 MG/100 ML PIGGYBACK 100 MG IV (23:21)
[2020-06-25] VITALS (8 sets, daily range): BP systolic 146–201; BP diastolic 77–111; PULSE 58–82; RESP 18–20; TEMP 35.8–36.7; O2SAT 92–96
[2020-06-25] MEDS: metroNIDAZOLE/NS 500 MG/100 ML PIGGYBACK 100 MG IV ×3 (03:52→18:32)
--- NOTE | 2020-06-25 08:15 | P.PNGS_ITS ---
Subjective Subjective Date of Service: 06/25/20 <Maranda Guajardo PA-C - Last Filed: 06/25/20 08:20> 06/25/20 <Bal[address]inder [address] MD - Last Filed: 06/25/20 08:31> Interval history: Feels great today. Denies any abdominal pain. Reports having multiple BM. Tolerated solid diet without any abdominal pain, nausea or vomiting. Wants to go home. <Maranda Guajardo PA-C - Last Filed: 06/25/20 08:20> Physical Exam Vital Signs: Vital Signs: Last Vital Signs Temp 96.4 F L 06/25/20 07:24 Pulse 70 06/25/20 07:24 Resp 20 06/25/20 07:24 BP 161/79 H 06/25/20 04:00 Pulse Ox 96 06/25/20 07:24 Body Mass Index 42.9 <Maranda Guajardo PA-C - Last Filed: 06/25/20 08:20> Const: General: comfortable, no acute distress and alert <Maranda Guajardo PA-C - Last Filed: 06/25/20 08:20> Orientation/consciousness: oriented to person and oriented to place <Maranda Guajardo PA-C - Last Filed: 06/25/20 08:20> Eyes: Sclerae: sclerae normal <Maranda Guajardo PA-C - Last Filed: 06/25/20 08:20> Resp: Effort & Inspection: normal respiratory effort <Maranda Guajardo PA-C - Last Filed: 06/25/20 08:20> Cardio: Rate: regular rate <Maranda Guajardo PA-C - Last Filed: 06/25/20 08:20> GI: Inspection: No distended <MIA Hall Last Filed: 06/25/20 08:20> Palpation (GI): Soft to palpation, nontender, no guarding and No Rebound t enderness present <MIA Hall Last Filed: 06/25/20 08:20> Skin: General skin exam: no rashes or lesions noted <MIA Hall Last Filed: 06/25/20 08:20> Neuro: General: oriented to person and oriented to place <Maranda Guajardo PA-C - Last Filed: 06/25/20 08:20> Extrem: General: Yes no clubbing, cyanosis or edema <Maranda Guajardo PA-C - Last Filed: 06/25/20 08:20> Progress Note: A&P Assessment and plan (1) Colonic diverticular abscess: Status: Acute <Maranda Guajardo PA-C - Last Filed: 06/25/20 08:20> Assessment and Plan: Improved without any abdominal pain. Tolerating solid diet and moving his bowels. Abdominal exam is soft, non-distended and non-tender. No peritoneal signs are elicited. Seen by PT yesterday who recommended STR upon d/c. Plan: Stable for discharge today. Discussed with case management. D/c when arranagements made. F/u with Dr. Way in office in 1 week. D/c home on course of PO Augmentin. <Maranda Guajardo PA-C - Last Filed: 06/25/20 08:20> (2) Hypertension: Status: Acute <Maranda Guajardo PA-C - Last Filed: 06/25/20 08:20> Assessment and Plan: On home antihypertensives. Started on Norvasc by medicine. <Maranda Guajardo PA-C - Last Filed: 06/25/20 08:20> (3) Dysuria: Status: Acute <Maranda Guajardo PA-C - Last Filed: 06/25/20 08:20> (4) Acute diverticulitis: Status: Acute <Maranda Guajardo PA-C - Last Filed: 06/25/20 08:20> (5) Perforation of sigmoid colon due to diverticulitis: Status: Acute <Maranda Guajardo PA-C - Last Filed: 06/25/20 08:20> Assessment and Plan: Patient is much improved today reporting no abdominal pain. He reports several bowel movements in the past 24 hours. Appreciate PT evaluation. Patient will need STR placement. Agree with the above assessment and plan. Restart Plavix and heparin <Balwinder Way MD - Last Filed: 06/25/20 08:31> Fall Risk Details Current Medications: Current Medications Generic Name Dose Route Start Last Admin Trade Name Freq PRN Reason Stop Dose Admin Acetaminophen 650 mg 06/19/20 08:33 Acetaminophen 325 Mg Tablet PO Q6H PRN Pain, Mild (Pain Scale 1-3) Albuterol Sulfate 2 puff 06/19/20 10:42 Albuterol Sulfate 90 Mcg 8 Gm Inhaler INHALE Q4H PRN wheezing Amlodipine Besylate 5 mg 06/23/20 09:00 06/24/20 08:45 Amlodipine Besylate 5 Mg Tablet PO 5 mg DAILY [facility] Administration Protocol Atorvastatin Calcium 80 mg 06/20/20 09:00 06/24/20 08:44 Atorvastatin Calcium 80 Mg Tablet PO 80 mg DAILY [facility] Administration Clonazepam 1 mg 06/19/20 21:00 06/24/20 21:12 Clonazepam 1 Mg Tablet PO 1 mg BID [facility] Administration Divalproex Sodium 250 mg 06/19/20 10:45 06/24/20 08:45 Divalproex Sodium Er 250 Mg Tab.Er.24h PO 250 mg DAILY [facility] Administration Duloxetine HCl 60 mg 06/19/20 10:45 06/24/20 08:45 Duloxetine Hcl 60 Mg Capsule.Dr PO 60 mg DAILY [facility] Administration Famotidine 20 mg 06/19/20 21:00 06/24/20 21:12 Famotidine 20 Mg Tablet PO 20 mg BID [facility] Administration Gabapentin 100 mg 06/19/20 21:00 06/24/20 21:12 Gabapentin 100 Mg Capsule PO 100 mg BID [facility] Administration Heparin Sodium (Porcine) 5,000 unit 06/21/20 11:45 06/22/20 12:50 Heparin Sodium,Porcine 5,000 Unit/Ml Vial SUBCUT 5,000 unit Q12H [facility] Administration Hydromorphone HCl 1 mg 06/22/20 16:14 Hydromorphone Hcl 1 Mg/Ml Syringe IVPUSH Q4H PRN Pain, Severe (Pain Scale 7-10) Levofloxacin 500 mg in 100 mls @ 100 mls/hr 06/19/20 23:00 06/25/20 00:41 Levaquin IV Infused Q24H [facility] Infusion Metronidazole 500 mg in 100 mls @ 100 mls/hr 06/19/20 11:00 06/25/20 05:18 Flagyl IV Infused Q8H [facility] Infusion Dextrose/Sodium Chloride 1,000 mls @ 80 mls/hr 06/23/20 10:45 06/24/20 18:23 D51/2ns IVCONT 0 mls/hr .[id number] [facility] Infusion Insulin Human Lispro 0 unit 06/20/20 16:30 06/24/20 21:16 Insulin Lispro 100 Unit/Ml 3 Ml Vial SUBCUT Not Given QIDACHS [facility] Protocol Lamotrigine 200 mg 06/19/20 10:45 06/24/20 21:12 Lamotrigine 100 Mg Tablet PO 200 mg BID [facility] Administration Losartan Potassium 100 mg 06/20/20 09:00 06/24/20 08:46 Losartan Potassium 50 Mg Tablet PO 100 mg DAILY [facility] Administration Protocol Metoprolol Tartrate 75 mg 06/19/20 11:00 06/24/20 21:12 Metoprolol Tartrate 50 Mg Tablet PO 75 mg BID [facility] Administration Protocol Oxycodone HCl 5 mg 06/19/20 08:33 06/24/20 13:31 Oxycodone Hcl Immed Release 5 Mg Tablet PO 5 mg Q6H PRN Administration Pain, Moderate (Pain Scale 4-6 Pharmacy Consult 1 each 06/19/20 08:33 Consult Rx Perform Med Rec MISCELLANE ONCE PRN Consult order Risperidone 0.5 mg 06/19/20 10:42 Risperidone 0.5 Mg Tablet PO BID PRN Sleep Sodium Chloride 3 ml 06/19/20 08:33 06/24/20 23:30 0.9 % Sodium Chloride Flush 3 Ml Syringe IVFLUSH 3 ml QSHIFT [facility] Administration Tamsulosin HCl 0.4 mg 06/20/20 09:00 06/24/20 08:45 Tamsulosin Hcl 0.4 Mg Capsule PO 0.4 mg DAILY [facility] Administration Temazepam 15 mg 06/19/20 08:33 Temazepam 15 Mg Capsule PO BEDTIME PRN Insomnia <Maranda Guajardo PA-C - Last Filed: 06/25/20 08:20> Time Spent With Patient Time: Total time spent is greater than 50% in coordination of care (as documented) at patient's floor/unit and/or counseling patient: <Maranda Guajardo PA-C - Last Filed: 06/25/20 08:20> Time with patient: less than 15 minutes <Maranda Guajardo PA-C - Last Filed: 06/25/20 08:20>
[2020-06-25 08:27] LABS: Glucose, Whole Blood 99 mg/dL (60-115)
[2020-06-25 08:27] LABS: Glucose, Whole Blood 115 mg/dL (60-115)
[2020-06-25] MEDS: Losartan Potassium 50 MG TABLET 100 MG PO (08:35)
[2020-06-25] MEDS: lamoTRIgine 100 MG TABLET 200 MG PO ×2 (08:36→21:08)
[2020-06-25] MEDS: Famotidine 20 MG TABLET PO ×2 (08:36→21:07)
[2020-06-25] MEDS: Gabapentin 100 MG CAPSULE PO ×2 (08:36→21:07)
[2020-06-25] MEDS: amLODIPine Besylate 5 MG TABLET PO (08:36)
[2020-06-25] MEDS: DULoxetine HCl 60 MG CAPSULE.DR PO (08:36)
[2020-06-25] MEDS: Divalproex Sodium ER 250 MG TAB.ER.24H PO (08:36)
[2020-06-25] MEDS: Atorvastatin Calcium 80 MG TABLET PO (08:36)
[2020-06-25] MEDS: Tamsulosin HCL 0.4 MG CAPSULE PO (08:36)
[2020-06-25] MEDS: Metoprolol Tartrate 50 MG TABLET 75 MG PO ×2 (08:36→21:09)
[2020-06-25] MEDS: clonazePAM 1 MG TABLET PO ×2 (08:37→21:07)
[2020-06-25] MEDS: 0.9 % Sodium Chloride Flush 3 ML SYRINGE IVFLUSH ×3 (08:37→23:16)
--- NOTE | 2020-06-25 10:28 | PM.DS ---
DS: Providers Provider Date of admission: 06/19/20 01:59 Primary care physician: Unknown Physician Consults: 06/19/20 08:33 Consult to Hospitalist Routine Consulting Provider: Hospitalist Reason for consultation: divertoculitis, diabetes, med management 06/30/20 Consult to Urology Routine Provider: Richy Reason: urinary retention, BPH DS: Diagnosis Discharge Diagnosis (1) Fall: Status: Acute (2) Dysuria: Status: Acute (3) Colonic diverticular abscess: Status: Acute (4) Hypertension: Status: Acute (5) Acute diverticulitis: Status: Acute (6) 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 hyperplasia: Status: Acute DS: Medications Discharge Medications Home Medications: Home Medications Medication Instructions Recorded Confirmed albuterol sulfate 2 puff INHALATION Q4H PRN 06/19/20 06/19/20 atorvastatin 1 tab PO DAILY 06/19/20 06/19/20 cholecalciferol (vitamin D3) 1 cap PO DAILY 06/19/20 06/19/20 clonazepam 1 mg PO BID 06/19/20 06/19/20 clopidogrel 1 tab PO DAILY 06/19/20 06/19/20 divalproex 1 tab PO DAILY 06/19/20 06/19/20 duloxetine 1 cap PO DAILY 06/19/20 06/19/20 famotidine 1 tab PO BID 06/19/20 06/19/20 gabapentin 1 cap PO BID 06/19/20 06/19/20 lamotrigine 1 tab PO BID 06/19/20 06/19/20 lancets [OneTouch Delica Plus 06/19/20 06/19/20 Lancet] loperamide 2 mg PO 3XW PRN 06/19/20 06/19/20 losartan 1 tab PO DAILY 06/19/20 06/19/20 metformin 1 tab PO BID 06/19/20 06/19/20 metoprolol tartrate 1.5 tab PO BID 06/19/20 06/19/20 promethazine 1 tab PO DAILY PRN 06/19/20 06/19/20 risperidone 1 tab PO BID PRN 06/19/20 06/19/20 tamsulosin 1 cap PO DAILY 06/19/20 06/19/20 DS: Summary Hospital Course Hospital Course: Brief HPI: Dragan Figueroa is a 64 year old male presenting with progressive weakness in several falls while at home, reporting abdominal pain on the left side. He reports pain with urinating as well. Patient apparently struck his head this morning after the fall. He is currently on Plavix following a previous CVA; there was no apparent loss of consciousness, shortness of breath, cough, fever, or chills. Patient was COVID-19 positive in September according to his . Patient presented to the emergency department and was noted to be tender in the left lower quadrant. CT of the abdomen and pelvis revealed severe diverticular changes as well as diverticulitis with small abscess. CT of the head revealed no evidence of intra cranial bleed. He denies a previous history of sigmoid diverticulitis. Hospital Course: He is admitted to the surgical service for management of this sigmoid diverticulitis. The CT was reviewed with radiology who felt the abscess was too small for drainage. He was started on IV levaquin/flagyl and made NPO for bowel rest. The patient improved symptomatically during his hospital stay. His abdominal pain and tenderness decreased. His WBC count normalized. Repeat CT scan was performed as follow up which showed a very small increase in the size of the abscess. This was discussed with radiology who felt drainage still was not needed. His WBC remained normal. Over the next couple of days, his abdominal pain resolved. His abdominal exam revealed no tenderness or peritoneal signs. His diet was advanced. Plavix was resumed. He completed a 12 day course of IV levaquin and flagyl. The patient was evaluated by PT who felt he needed STR upon discharge. He remained inpatient until complete return of GI function returned and was documented. During this time he became increasingly lethargic. Work up included a CT head which was negative and CBC/BMP/LFTs/PT/INR all of which revealed no significant abnormalities. He was given klonopin and gabapentin which were discontinued and any further sedative medication held. His mentation improved but did not return to baseline and was monitored. His calorie counts were monitored and his PO intake increased. He developed urinary retention secondary to BPH and required george insertion. He was seen by urology who recommended a trial void which he failed and george catheter was reinserted. His tamsulosin was increased to 2 tablets PO (0.8mg) at bedtime and finasteride 5mg PO daily was added. He is to be discharged with george in place and is to follow up with Dr. Lockhart in 2 weeks outpatient. The patient was persistently hypertensive during his stay despite reconciliation of his home antihypertensives. He was started on Norvasc 5mg PO daily which was increased to Norvasc 10mg PO daily with better control. He is to follow up with his PCP upon discharge for further management. On the day of discharge, the patient was tolerating a solid diet with no abdominal pain, nausea or vomiting. He had return of GI function. His abdominal exam was very benign with no tenderness to deep palpation. He was afebrile. He was transferred to [facility] in stable condition. Status at Discharge Functional status at discharge: uses cane/walker Overall status at discharge: patient is not back to baseline Time Spent with Patient Time attestation: Total time spent providing and/or coordinating discharge services: Discharge coordination time: Greater than 30 minutes Physical Exam Vital Signs: Vital Signs: Last Vital Signs Temp 96.4 F L 06/25/20 07:24 Pulse 70 06/25/20 07:24 Resp 20 06/25/20 07:24 BP 201/111 H 06/25/20 08:23 Pulse Ox 96 06/25/20 07:24 Body Mass Index 42.9 Const: General: comfortable and no acute distress Orientation/consciousness: oriented to person Resp: Effort & Inspection: normal respiratory effort GI: Inspection: No distended Palpation (GI): Soft to palpation, nontender, no guarding, not rigid and No Rebound tenderness present Skin: Other: normal color, warm and dry General skin exam: no rashes or lesions noted Neuro: General: oriented to person Extrem: General: Yes no clubbing, cyanosis or edema DS: Data Data Completed and Pending Labs on day of discharge: 06/19/20 00:20 ECG 12 lead EKG Stat EKG Documentation DIRECTED CT abdomen pelvis wo con Stat CT head/brain wo con Stat XR chest 1V Stat 06/19/20 00:30 0.9 % Sodium Chloride [Ns] 1,000 ml IVCONT 999 mls/hr 06/19/20 01:25 levoFLOXacin/D5W [Levaquin] 500 mg in 100 ml IV ONCE metroNIDAZOLE/NS [Flagyl] 500 mg in 100 ml IV ONCE 06/19/20 01:30 0.9 % Sodium Chloride [Ns] 2,580 ml IVCONT 2,580 mls/hr 06/19/20 01:35 Basic Metabolic Panel Stat Complete Blood Count Auto Diff Stat Lactic Acid Stat Lipase Stat Liver Panel Stat Partial Thromboplastin Time Stat Prothrombin Time INR Stat SARS-CoV2/FLU/RSV Stat SLIDE REVIEW Stat Troponin-I High Sensitivity Stat Blood Culture X2 [BC] Stat 06/19/20 01:49 Transfer Order Routine 06/19/20 05:39 ~Lactic Acid-LAB USE ONLY Stat 06/19/20 08:33 Dextrose 5 % and Lactated Ring [D5lr] 1,000 ml IVCONT 125 mls/hr Morphine Sulfate 4 mg IVPUSH Q3H PRN 06/19/20 11:54 Glucose, Whole Blood Routine 06/19/20 16:43 Glucose, Whole Blood Routine 06/19/20 21:30 Glucose, Whole Blood Routine 06/20/20 06:11 Basic Metabolic Panel Fasting Routine Complete Blood Count Auto Diff Routine 06/20/20 07:40 Glucose, Whole Blood Routine 06/20/20 09:00 Clopidogrel Bisulfate [Plavix] 75 mg PO DAILY 06/20/20 11:52 Glucose, Whole Blood Routine 06/20/20 16:41 Glucose, Whole Blood Routine 06/20/20 20:36 Glucose, Whole Blood Routine 06/21/20 07:22 Glucose, Whole Blood Routine 06/21/20 Breakfast Clear Liquid Diet 06/21/20 11:07 Glucose, Whole Blood Routine 06/21/20 17:02 Glucose, Whole Blood Routine 06/21/20 21:20 Glucose, Whole Blood Routine 06/22/20 CT abdomen pelvis w con Routine 06/22/20 07:45 Glucose, Whole Blood Routine 06/22/20 10:15 Lactated Ringers [Lr] 1,000 ml IVCONT 80 mls/hr 06/22/20 11:01 Glucose, Whole Blood Routine 06/22/20 12:00 iohexoL 350 MG/ML [Omnipaque 350 MG/ML] 100 ml IV ONCE ONE 06/22/20 12:04 iohexoL 350 MG/ML [Omnipaque 350 MG/ML] 100 ml IV ONCE ONE 06/22/20 Lunch NPO Diet 06/22/20 16:08 Glucose, Whole Blood Routine 06/22/20 20:31 Glucose, Whole Blood Routine 06/23/20 06:04 Basic Metabolic Panel DAILY@0600 Complete Blood Count Auto Diff DAILY@0600 06/23/20 07:24 Glucose, Whole Blood Routine 06/23/20 10:45 Dextrose 5 % and 0.45 % NaCl [D51/2Ns] 1,000 ml IVCONT 80 mls/hr 06/23/20 11:06 Glucose, Whole Blood Routine 06/23/20 16:47 Glucose, Whole Blood Routine 06/23/20 20:05 Glucose, Whole Blood Routine 06/24/20 00:02 hydrALAZINE HCl [Apresoline] 5 mg IVPUSH ONCE ONE 06/24/20 01:59 Nitroglycerin [Nitro-Dur] 0.1 mg TRANSDERMA ONCE ONE hydrALAZINE HCl [Apresoline] 5 mg IVPUSH ONCE ONE 06/24/20 07:50 Glucose, Whole Blood Routine 06/24/20 11:13 Glucose, Whole Blood Routine 06/24/20 16:16 Glucose, Whole Blood Routine 06/24/20 20:20 Glucose, Whole Blood Routine 06/25/20 07:30 Glucose, Whole Blood Routine 06/25/20 08:18 Glucose, Whole Blood Routine Laboratory Last Values WBC 5.6 X10*3/uL (4.8-10.8) 06/23/20 06:04 WBC Cancelled 06/23/20 06:04 RBC 3.76 X10*6/uL (4.60-5.80) L 06/23/20 06:04 RBC Cancelled 06/23/20 06:04 Hgb 11.1 g/dl (14.0-18.0) L 06/23/20 06:04 Hgb Cancelled 06/23/20 06:04 Hct 32.7 % (42-52) L 06/23/20 06:04 Hct Cancelled 06/23/20 06:04 MCV 87.0 fL (80-98) 06/23/20 06:04 MCV Cancelled 06/23/20 06:04 MCH 29.5 pg (27.0-33.0) 06/23/20 06:04 MCH Cancelled 06/23/20 06:04 MCHC 33.9 g/dl (31.0-36.0) 06/23/20 06:04 MCHC Cancelled 06/23/20 06:04 RDW 12.0 % (11.0-16.0) 06/23/20 06:04 RDW Cancelled 06/23/20 06:04 Plt Count 215 X10*3/uL (160-400) D 06/23/20 06:04 Plt Count Cancelled 06/23/20 06:04 MPV 9.8 fL (9.4-12.4) 06/23/20 06:04 MPV Cancelled 06/23/20 06:04 Immature Gran % (Auto) 0.5 % (0.0-0.4) H 06/23/20 06:04 Immature Gran % (Auto) Cancelled 06/23/20 06:04 Neut % (Auto) 58.5 % (45-73) 06/23/20 06:04 Neut % (Auto) Cancelled 06/23/20 06:04 Lymph % (Auto) 25.9 % (20-40) 06/23/20 06:04 Lymph % (Auto) Cancelled 06/23/20 06:04 [place] % (Auto) 10.8 % (2-11) 06/23/20 06:04 [place] % (Auto) Cancelled 06/23/20 06:04 Eos % (Auto) 3.9 % (0-4) 06/23/20 06:04 Eos % (Auto) Cancelled 06/23/20 06:04 Baso % (Auto) 0.4 % (0-2) 06/23/20 06:04 Baso % (Auto) Cancelled 06/23/20 06:04 Lymph # (Auto) 1.5 X10*3/uL (1.2-4.9) 06/23/20 06:04 Lymph # (Auto) Cancelled 06/23/20 06:04 [place] # (Auto) 0.6 X10*3/uL (0.1-1.2) 06/23/20 06:04 [place] # (Auto) Cancelled 06/23/20 06:04 Eos # (Auto) 0.2 X10*3/uL (0.0-0.4) 06/23/20 06:04 Eos # (Auto) Cancelled 06/23/20 06:04 Baso # (Auto) 0.0 X10*3/uL (0.0-0.2) 06/23/20 06:04 Baso # (Auto) Cancelled 06/23/20 06:04 Abs Immat Gran (auto) 0.03 X10*3/uL (0.00-0.03) 06/23/20 06:04 Abs Immat Gran (auto) Cancelled 06/23/20 06:04 Absolute Neuts (auto) 3.3 X10*3/uL (2.0-8.3) 06/23/20 06:04 Absolute Neuts (auto) Cancelled 06/23/20 06:04 Absolute Nucleated RBC 0.000 X10*3/uL (0.0-0.012) 06/23/20 06:04 Absolute Nucleated RBC Cancelled 06/23/20 06:04 Nucleated RBC % (auto) 0.0 /100WBC (0.0-0.2) 06/23/20 06:04 Nucleated RBC % (auto) Cancelled 06/23/20 06:04 Smear Tech's Comments VERIFIED 06/19/20 01:35 PT 16.3 SEC (10.8-13.0) H D 06/19/20 01:35 INR 1.4 (0.9-1.1) H 06/19/20 01:35 APTT 34.4 SEC (24.1-38.0) 06/19/20 01:35 Sodium 142 mmol/L (135-145) 06/23/20 06:04 Potassium 3.5 mmol/l (3.3-5.1) 06/23/20 06:04 Chloride 104 mmol/L (96-108) 06/23/20 06:04 Carbon Dioxide 29 mmol/L (22-29) 06/23/20 06:04 Anion Gap 13 (-20) 06/23/20 06:04 BUN 4 mg/dL (9-16) L 06/23/20 06:04 Creatinine 0.66 mg/dL (0.5-1.4) 06/23/20 06:04 Estim Creat Clear Calc 138.3 06/23/20 06:04 Estimated GFR > 60 06/23/20 06:04 POC Glucose 99 mg/dL (60-115) 06/25/20 08:18 Random Glucose 83 mg/dL (60-115) 06/23/20 06:04 Fasting Glucose 120 mg/dL (60-99) H 06/20/20 06:11 Lactic Acid 2.3 mmol/L (0.5-2.0) H* 06/19/20 01:35 Lactic Acid Fup @ 2Hr 2.0 mmol/L (0.5-2.0) 06/19/20 05:39 Calcium 7.9 mg/dL (8.4-10.2) L 06/23/20 06:04 Total Bilirubin 1.9 mg/dL (0.0-1.0) H 06/19/20 01:35 Direct Bilirubin 0.7 mg/dL (0.0-0.5) H 06/19/20 01:35 AST 8 U/L (5-37) D 06/19/20 01:35 ALT 12 U/L (0-40) 06/19/20 01:35 Alkaline Phosphatase 73 U/L (39-117) 06/19/20 01:35 Troponin I High Sens 11.1 ng/L (<3.5-35.0) D 06/19/20 01:35 Total Protein 6.3 g/dL (6.5-8.0) L 06/19/20 01:35 Albumin 4.0 g/dL (3.5-5.0) 06/19/20 01:35 Lipase 15 U/L (8-78) 06/19/20 01:35 Urine Color JOSE 06/19/20 22:42 Urine Color Cancelled 06/19/20 22:42 Urine Appearance CLEAR 06/19/20 22:42 Urine Appearance Cancelled 06/19/20 22:42 Urine pH 6.0 (5.0-8.0) 06/19/20 22:42 Urine pH Cancelled 06/19/20 22:42 Ur Specific [place] 1.015 (1.005-1.025) 06/19/20 22:42 Ur Specific [place] Cancelled 06/19/20 22:42 Urine Protein Cancelled 06/19/20 22:42 Urine Protein NEG MG/DL (NEG-TRACE) 06/19/20 22:42 Urine Glucose (UA) Cancelled 06/19/20 22:42 Urine Glucose (UA) NEG MG/DL (NEG) 06/19/20 22:42 Urine Ketones 15 MG/DL (NEG) 06/19/20 22:42 Urine Ketones Cancelled 06/19/20 22:42 Urine Blood Cancelled 06/19/20 22:42 Urine Blood TRACE (NEG) 06/19/20 22:42 Urine Nitrite Cancelled 06/19/20 22:42 Urine Nitrite NEG (NEG) 06/19/20 22:42 Ur Leukocyte Esterase Cancelled 06/19/20 22:42 Ur Leukocyte Esterase NEG (NEG) 06/19/20 22:42 Urine RBC 0-2 /HPF (0) 06/19/20 22:42 Urine WBC 0 /HPF (0-4) 06/19/20 22:42 Ur Squamous Epith Cells TRACE /LPF 06/19/20 22:42 Urine Bacteria NONE /LPF 06/19/20 22:42 Coronavirus (PCR) NEGATIVE (Negative) 06/19/20 01:35 Influenza Type A (PCR) NEGATIVE (Negative) 06/19/20 01:35 Influenza Type B (PCR) NEGATIVE (Negative) 06/19/20 01:35 RSV RNA Qual (PCR) NEGATIVE (Negative) 06/19/20 01:35 Discharge Plan Discharge Patient Disposition: er SNF Referrals: Juanito Gilman [Outside] Torey Lockhart MD [Physician] - [address] MD [Physician] - 1 Week Physician,Unknown [Primary Care Provider] - 1 Week (F/u regarding BP) Discharge Medications: New tamsulosin 0.4 mg Capsule 0.8 mg PO BEDTIME Qty: 30 RF: 0 finasteride 5 mg tablet 5 mg PO DAILY Qty: 30 RF: 0 amlodipine 10 mg tablet 10 mg PO DAILY Qty: 30 RF: 0 Probiotic 15 billion cell capsule, sprinkle 1 cap PO DAILY Qty: 30 RF: 0 Continued atorvastatin 80 mg tablet 1 tab PO DAILY RF: 0 lamotrigine 200 mg tablet 1 tab PO BID RF: 0 clopidogrel 75 mg tablet 1 tab PO DAILY RF: 0 famotidine 20 mg tablet 1 tab PO BID RF: 0 metoprolol tartrate 50 mg tablet 1.5 tab PO BID RF: 0 albuterol sulfate 90 mcg/actuation HFA aerosol inhaler 2 puff inhalation Q4H PRN (Reason: wheezing) RF: 0 losartan 100 mg tablet 1 tab PO DAILY RF: 0 metformin 500 mg tablet extended release 24 hr 1 tab PO BID RF: 0 risperidone 0.5 mg tablet 1 tab PO BID PRN (Reason: Sleep) RF: 0 divalproex 250 mg tablet extended release 24 hr 1 tab PO DAILY RF: 0 duloxetine 60 mg capsule,delayed release(DR/EC) 1 cap PO DAILY RF: 0 cholecalciferol (vitamin D3) 50 mcg (2,000 unit) capsule 1 cap PO DAILY RF: 0 (DME) lancets [OneTouch Delica Plus Lancet] 30 gauge misc MISCELLANEOUS DAILY RF: 0 loperamide 2 mg capsule 2 mg PO 3XW PRN (Reason: Diarrhea) RF: 0 promethazine 25 mg tablet 1 tab PO DAILY PRN (Reason: Nausea And Vomiting) RF: 0 Held clonazepam 1 mg tablet 1 mg PO BID RF: 0 Hold Instructions: Resume on 07/06/20. Lethargic, on hold. gabapentin 100 mg capsule 1 cap PO BID RF: 0 Hold Instructions: Resume on 07/06/20. Lethargic, on hold Discontinued tamsulosin 0.4 mg capsule 1 cap PO DAILY RF: 0 Discharge Orders: Discharge Order (Routine); Ordered 07/03/20 Ordered By: Maranda Guajardo Diet: diabetic diet and other Activity on Discharge: As tolerated Discharge Date/Time: 07/03/20 17:25 Activity Restrictions/Additional Instructions: Diabetic and Low residue diet with supplements TID upon discharge. Family requests yogurt daily. Visit Report Forms: Patient Portal Discharge page Care Plan Goals: Return to baseline health and activity. Health Concerns: Sigmoid diverculitis with abscess, hypertension, fall Plan of Treatment: Nonoperative with IV antibiotics, bowel rest.
--- NOTE | 2020-06-25 11:09 | MHC.CM.PN ---
PATIENT IS DISCHARGED. AGREEABLE TO SHORT [facility] REFERRALS THAT ARE CONTRACTED WITH HIS INSURANCE IS RELUCTANT, HER PAST REHAB EXPERIENCES HAVE NOT BEEN GOOD CASE MANAGEMENT FOLLOWING UP.
[2020-06-25 11:42] LABS: Glucose, Whole Blood 134 mg/dL (60-115)
--- NOTE | 2020-06-25 13:01 | HO.PM.IMPN ---
Subjective Subjective Date of Service: 06/25/20 Interval History: Seen in follow-up for acute diverticulitis. Doing well no pain Review of Systems General no headache, no dizziness, no fever, no chills. CVS no chest pain, no palpitation. Respiratory no cough, no shortness of breath. Gastrointestinal no nausea, no vomiting, no abdominal pain Physical Exam Vital Signs: Vital Signs: Last Vital Signs Temp 97 F 06/25/20 11:16 Pulse 58 06/25/20 11:16 Resp 18 06/25/20 11:16 BP 149/87 H 06/25/20 11:16 Pulse Ox 95 06/25/20 11:16 Body Mass Index 42.9 General: AO X 3, no acute distress Resp: CTA bilateral CVS: S1,S2,RRR GI: +BS, NT, no distention Skin: No rash Neuro: motor grossly intact Psych: appropriate affect Objective Data Current Medications Generic Name Dose Route Start Last Admin Trade Name Freq PRN Reason Stop Dose Admin Acetaminophen 650 mg 06/19/20 08:33 Acetaminophen 325 Mg Tablet PO Q6H PRN Pain, Mild (Pain Scale 1-3) Albuterol Sulfate 2 puff 06/19/20 10:42 Albuterol Sulfate 90 Mcg 8 Gm Inhaler INHALE Q4H PRN wheezing Amlodipine Besylate 5 mg 06/23/20 09:00 06/25/20 08:36 Amlodipine Besylate 5 Mg Tablet PO 5 mg DAILY AARON Administration Protocol Atorvastatin Calcium 80 mg 06/20/20 09:00 06/25/20 08:36 Atorvastatin Calcium 80 Mg Tablet PO 80 mg DAILY AARON Administration Clonazepam 1 mg 06/19/20 21:00 06/25/20 08:37 Clonazepam 1 Mg Tablet PO 1 mg BID AARON Administration Clopidogrel Bisulfate 75 mg 06/25/20 09:00 Clopidogrel Bisulfate 75 Mg Tablet PO DAILY AARON Divalproex Sodium 250 mg 06/19/20 10:45 06/25/20 08:36 Divalproex Sodium Er 250 Mg Tab.Er.24h PO 250 mg DAILY AARON Administration Duloxetine HCl 60 mg 06/19/20 10:45 06/25/20 08:36 Duloxetine Hcl 60 Mg Capsule.Dr PO 60 mg DAILY AARON Administration Famotidine 20 mg 06/19/20 21:00 06/25/20 08:36 Famotidine 20 Mg Tablet PO 20 mg BID AARON Administration Gabapentin 100 mg 06/19/20 21:00 06/25/20 08:36 Gabapentin 100 Mg Capsule PO 100 mg BID AARON Administration Heparin Sodium (Porcine) 5,000 unit 06/21/20 11:45 06/22/20 12:50 Heparin Sodium,Porcine 5,000 Unit/Ml Vial SUBCUT 5,000 unit Q12H AARON Administration Hydromorphone HCl 1 mg 06/22/20 16:14 Hydromorphone Hcl 1 Mg/Ml Syringe IVPUSH Q4H PRN Pain, Severe (Pain Scale 7-10) Levofloxacin 500 mg in 100 mls @ 100 mls/hr 06/19/20 23:00 06/25/20 00:41 Levaquin IV Infused Q24H AARON Infusion Metronidazole 500 mg in 100 mls @ 100 mls/hr 06/19/20 11:00 06/25/20 05:18 Flagyl IV Infused Q8H AARON Infusion Insulin Human Lispro 0 unit 06/20/20 16:30 06/25/20 08:37 Insulin Lispro 100 Unit/Ml 3 Ml Vial SUBCUT Not Given QIDACHS [facility] Protocol Lamotrigine 200 mg 06/19/20 10:45 06/25/20 08:36 Lamotrigine 100 Mg Tablet PO 200 mg BID [facility] Administration Losartan Potassium 100 mg 06/20/20 09:00 06/25/20 08:35 Losartan Potassium 50 Mg Tablet PO 100 mg DAILY [facility] Administration Protocol Metoprolol Tartrate 75 mg 06/19/20 11:00 06/25/20 08:36 Metoprolol Tartrate 50 Mg Tablet PO 75 mg BID [facility] Administration Protocol Oxycodone HCl 5 mg 06/19/20 08:33 06/24/20 13:31 Oxycodone Hcl Immed Release 5 Mg Tablet PO 5 mg Q6H PRN Administration Pain, Moderate (Pain Scale 4-6 Pharmacy Consult 1 each 06/19/20 08:33 Consult Rx Perform Med Rec MISCELLANE ONCE PRN Consult order Risperidone 0.5 mg 06/19/20 10:42 Risperidone 0.5 Mg Tablet PO BID PRN Sleep Sodium Chloride 3 ml 06/19/20 08:33 06/25/20 08:37 0.9 % Sodium Chloride Flush 3 Ml Syringe IVFLUSH 3 ml QSHIFT [facility] Administration Tamsulosin HCl 0.4 mg 06/20/20 09:00 06/25/20 08:36 Tamsulosin Hcl 0.4 Mg Capsule PO 0.4 mg DAILY AARON Administration Temazepam 15 mg 06/19/20 08:33 Temazepam 15 Mg Capsule PO BEDTIME PRN Insomnia Labs CBC & Chem 7: 06/23/20 06:04 06/23/20 06:04 Microbiology Microbiology Results: Microbiology 06/19/20 01:35 Blood - Venous Blood Culture - Final No growth after 5 days. 06/19/20 01:35 Blood - Venous Blood Culture - Final No growth after 5 days. Assessment and Plan (1) Fall: Status: Acute (2) Dysuria: Status: Acute (3) Colonic diverticular abscess: Status: Acute (4) Hypertension: Status: Acute (5) Acute diverticulitis: Status: Acute Assessment and Plan: 64-year-old with history coronary artery disease, stroke, anxiety, diabetes BPH, dyslipidemia who presented to the emergency department with weakness, fall, abdominal pain found to have diverticulitis with abscess Diverticulitis with abscess--didn't need abscess drainage, transition to PO Augmentin Dysuria--resolved, UA normal. 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 Hypertension Continue losartan, and metoprolol home dose but noted to have elevated blood pressure and pulse despite adjusting pain medication therefore will add Norvasc and follow BP. BPHg pain medicine Continue Flomax Mood Continue risperidone, lamotrigine, duloxetine, Depakote, and clonazepam
--- NOTE | 2020-06-25 13:09 | MHC.CM.PN ---
[facility] NITHIN JUNIOR CALL RECEIVED BACK FROM , WHO STATES THAT PATIENT HAS MEDICARE AND SHE WANTS OT APPEAL A DC. THIS GREY STOCK RECORDER EXPLAINED THAT PATIENT HAS [employer]. TO CALL [facility] AND UPDATE HIS NEW INSURANCE (IF IT IS ACTIVE) IS LEANING TOWARDS [facility] AND A COVID SWAB IS ORDERED. SURGEON AND HOSPITALIST MADE AWARE CASE MANAGEMENT CONTINUING TO FOLLOW.
[2020-06-25] MEDS: Clopidogrel Bisulfate 75 MG TABLET PO (13:33)
[2020-06-25] MEDS: Heparin Sodium,Porcine 5,000 UNIT/ML VIAL 5000 UNIT SUBCUT ×2 (13:33→23:08)
--- NOTE | 2020-06-25 13:52 | MHC.CM.PN ---
ACCEPTS [facility] OFFER FOR TOMORROW. SURGEON AND HOSPITALIST MADE AWARE PATIENT DOES NOT HAVE MEDICARE UNTIL JULY 17, 2020 ACCORDING TO 'S REVIEW OF DOCUMENTS.
[2020-06-25 14:53] LABS: COVID-19 Test Negative (Negative); IDNOW Serial# 9DD0AD1C
--- NOTE | 2020-06-25 14:53 | MHC.CM.PN ---
CHANGE OF PLANS NO PLAN FOR DISCHARGE AT THIS TIME PER CONVERSATION WITH SURGEON. HOSPITALIST MADE AWARE.
--- NOTE | 2020-06-25 14:59 | MHC.CM.PN ---
YOLANDA LADD IS FOLLOWING AND GOING FOR AUTH IN THE EVENT THAT PATIENT DC OVER WEEKEND
[2020-06-25 16:47] LABS: Glucose, Whole Blood 127 mg/dL (60-115)
[2020-06-25] MEDS: Docusate Sodium 100 MG CAPSULE PO (21:07)
[2020-06-25] MEDS: levoFLOXacin/D5W 500 MG/100 ML PIGGYBACK 100 MG IV (23:08)
[2020-06-26] VITALS (13 sets, daily range): BP systolic 128–190; BP diastolic 78–96; PULSE 59–73; RESP 16–20; TEMP 36.1–36.6; O2SAT 95–99
[2020-06-26 01:10] LABS: Glucose, Whole Blood 101 mg/dL (60-115)
[2020-06-26] MEDS: metroNIDAZOLE/NS 500 MG/100 ML PIGGYBACK 100 MG IV ×3 (03:00→19:11)
[2020-06-26 08:15] LABS: Glucose, Whole Blood 93 mg/dL (60-115)
--- NOTE | 2020-06-26 08:15 | P.PNGS_ITS ---
Subjective Subjective Date of Service: 06/26/20 <Maranda Guajardo PA-C - Last Filed: 06/26/20 08:21> 06/26/20 <Balwinder Way MD - Last Filed: 06/26/20 08:32> Patient reports: no new complaints <Maranda Guajardo PA-C - Last Filed: 06/26/20 08:21> Interval history: Denies any abdominal pain. Tolerating diet. No BM per chart. <Mraanda Guajardo PA-C - Last Filed: 06/26/20 08:21> Physical Exam Vital Signs: Vital Signs: Last Vital Signs Temp 97.1 F 06/26/20 07:11 Pulse 62 06/26/20 07:11 Resp 18 06/26/20 07:11 BP 190/95 H 06/26/20 07:11 Pulse Ox 97 06/26/20 07:11 Body Mass Index 42.9 <Maranda Guajardo PA-C - Last Filed: 06/26/20 08:21> Const: General: comfortable, no acute distress and awake <Maranda Guajardo PA-C - Last Filed: 06/26/20 08:21> Orientation/consciousness: oriented to person and oriented to place <Maranda Guajardo PA-C - Last Filed: 06/26/20 08:21> Eyes: Sclerae: sclerae normal <Maranda Guajardo PA-C - Last Filed: 06/26/20 08:21> Resp: Effort & Inspection: normal respiratory effort <Maranda Guajardo PA-C - Last Filed: 06/26/20 08:21> GI: Inspection: No distended <Maranda Guajardo PA-C - Last Filed: 06/26/20 08:21> Palpation (GI): Soft to palpation, nontender, no guarding, not rigid and No Rebound tenderness present <MIA Hall Last Filed: 06/26/20 08:21> Skin: General skin exam: no rashes or lesions noted <Maranda Guajardo PA-C - Last Filed: 06/26/20 08:21> Neuro: General: oriented to person and oriented to place <Maranda Guajardo PA-C - Last Filed: 06/26/20 08:21> Extrem: General: Yes no clubbing, cyanosis or edema <Maranda Guajardo PA-C - Last Filed: 06/26/20 08:21> Progress Note: A&P Assessment and plan (1) Hypertension: Status: Acute <Maranda Guajardo PA-C - Last Filed: 06/26/20 08:21> (2) Colonic diverticular abscess: Problem details: Too small for IR drainage, treated with IV antibiotics and bowel rest with improvement. <Maranda Guajardo PA-C - Last Filed: 06/26/20 08:21> Status: Acute <Maranda Guajardo PA-C - Last Filed: 06/26/20 08:21> Assessment and Plan: Improved without any abdominal pain. Tolerating solid diet. No BM per nursing. Abdominal exam is soft, non-distended and non-tender to deep palpation. No peritoneal signs are elicited. On colace, MOM for bowel regimen. Continue to monitor for BM. Seen by PT who recommended STR upon d/c. Case management has made arrangements. Family hesistant that patient being discharged. Ready for discharge when has BM. F/u with Dr. Way in office in 1 week. D/c home on course of PO Augmentin. <Maranda Guajardo PA-C - Last Filed: 06/26/20 08:21> Patient reports no abdominal pain this morning and is tolerating at least half his diet without nausea or vomiting. Although patient reported a bowel movement yesterday this was not recorded in the chart therefore may not be real. According to his sister Magdalena, he cannot be trusted to accurately report his bowel habits. We will need to keep patient longer to be sure he has a return of bowel function. Abdominal examination today is quite benign with no tenderness to deep palpation in all quadrants. Diverticulitis appears to be improving. We discussed the possibility of surgical intervention to prevent further infections. His family is of the opinion that he is too weak to undergo any type of surgery. I will treat him with oral antibiotics upon discharge to short-term rehab once he is stable for discharge. We will hold off on any surgery for now. They (, sister) understand that if an emergency surgeries required this may be complicated by his medications (Plavix) and may require a colostomy. <Balwinder Way MD - Last Filed: 06/26/20 08:32> (3) Dysuria: Status: Acute <Maranda Guajardo PA-C - Last Filed: 06/26/20 08:21> (4) Acute diverticulitis: Status: Acute <Maranda Guajardo PA-C - Last Filed: 06/26/20 08:21> Fall Risk Details Current Medications: Current Medications Generic Name Dose Route Start Last Admin Trade Name Freq PRN Reason Stop Dose Admin Acetaminophen 650 mg 06/19/20 08:33 Acetaminophen 325 Mg Tablet PO Q6H PRN Pain, Mild (Pain Scale 1-3) Albuterol Sulfate 2 puff 06/19/20 10:42 Albuterol Sulfate 90 Mcg 8 Gm Inhaler INHALE Q4H PRN wheezing Amlodipine Besylate 5 mg 06/23/20 09:00 06/25/20 08:36 Amlodipine Besylate 5 Mg Tablet PO 5 mg DAILY [facility] Administration Protocol Atorvastatin Calcium 80 mg 06/20/20 09:00 06/25/20 08:36 Atorvastatin Calcium 80 Mg Tablet PO 80 mg DAILY [facility] Administration Clonazepam 1 mg 06/19/20 21:00 06/25/20 21:07 Clonazepam 1 Mg Tablet PO 1 mg BID [facility] Administration Clopidogrel Bisulfate 75 mg 06/25/20 09:00 06/25/20 13:33 Clopidogrel Bisulfate 75 Mg Tablet PO 75 mg DAILY [facility] Administration Divalproex Sodium 250 mg 06/19/20 10:45 06/25/20 08:36 Divalproex Sodium Er 250 Mg Tab.Er.24h PO 250 mg DAILY [facility] Administration Docusate Sodium 100 mg 06/25/20 21:00 06/25/20 21:07 Docusate Sodium 100 Mg Capsule PO 100 mg BID [facility] Administration Duloxetine HCl 60 mg 06/19/20 10:45 06/25/20 08:36 Duloxetine Hcl 60 Mg Capsule.Dr PO 60 mg DAILY [facility] Administration Famotidine 20 mg 06/19/20 21:00 06/25/20 21:07 Famotidine 20 Mg Tablet PO 20 mg BID [facility] Administration Gabapentin 100 mg 06/19/20 21:00 06/25/20 21:07 Gabapentin 100 Mg Capsule PO 100 mg BID [facility] Administration Heparin Sodium (Porcine) 5,000 unit 06/21/20 11:45 06/25/20 23:08 Heparin Sodium,Porcine 5,000 Unit/Ml Vial SUBCUT 5,000 unit Q12H [facility] Administration Hydromorphone HCl 1 mg 06/22/20 16:14 Hydromorphone Hcl 1 Mg/Ml Syringe IVPUSH Q4H PRN Pain, Severe (Pain Scale 7-10) Levofloxacin 500 mg in 100 mls @ 100 mls/hr 06/19/20 23:00 06/26/20 00:33 Levaquin IV Infused Q24H [facility] Infusion Metronidazole 500 mg in 100 mls @ 100 mls/hr 06/19/20 11:00 06/26/20 04:12 Flagyl IV Infused Q8H [facility] Infusion Insulin Human Lispro 0 unit 06/20/20 16:30 06/26/20 08:10 Insulin Lispro 100 Unit/Ml 3 Ml Vial SUBCUT Not Given QIDACHS [facility] Protocol Lamotrigine 200 mg 06/19/20 10:45 06/25/20 21:08 Lamotrigine 100 Mg Tablet PO 200 mg BID [facility] Administration Losartan Potassium 100 mg 06/20/20 09:00 06/25/20 08:35 Losartan Potassium 50 Mg Tablet PO 100 mg DAILY [facility] Administration Protocol Magnesium Hydroxide 30 ml 06/26/20 08:06 Milk Of Magnesia 30 Ml Oral.Susp PO DAILY PRN Constipation Metoprolol Tartrate 75 mg 06/19/20 11:00 06/25/20 21:09 Metoprolol Tartrate 50 Mg Tablet PO 75 mg BID [facility] Administration Protocol Oxycodone HCl 5 mg 06/19/20 08:33 06/24/20 13:31 Oxycodone Hcl Immed Release 5 Mg Tablet PO 5 mg Q6H PRN Administration Pain, Moderate (Pain Scale 4-6 Pharmacy Consult 1 each 06/19/20 08:33 Consult Rx Perform Med Rec MISCELLANE ONCE PRN Consult order Risperidone 0.5 mg 06/19/20 10:42 Risperidone 0.5 Mg Tablet PO BID PRN Sleep Sodium Chloride 3 ml 06/19/20 08:33 06/25/20 23:16 0.9 % Sodium Chloride Flush 3 Ml Syringe IVFLUSH 3 ml QSHIFT [facility] Administration Tamsulosin HCl 0.4 mg 06/20/20 09:00 06/25/20 08:36 Tamsulosin Hcl 0.4 Mg Capsule PO 0.4 mg DAILY [facility] Administration Temazepam 15 mg 06/19/20 08:33 Temazepam 15 Mg Capsule PO BEDTIME PRN Insomnia <Maranda Guajardo PA-C - Last Filed: 06/26/20 08:21> Time Spent With Patient Time: Total time spent is greater than 50% in coordination of care (as documented) at patient's floor/unit and/or counseling patient: <Maranda Guajardo PA-C - Last Filed: 06/26/20 08:21> Time with patient: less than 15 minutes <Maranda Guajardo PA-C - Last Filed: 06/26/20 08:21>
--- NOTE | 2020-06-26 08:16 | PM.PNGS ---
Subjective Subjective Date of Service: 06/26/20 Interval history: Dragan is awake and alert this morning, denying abdominal pain. He denies any bowel movements. He has been eating approximately 1/2 of his meals, without nausea or vomiting. He is requesting to go home. Physical Exam Vital Signs: Vital Signs: Last Vital Signs Temp 97.1 F 06/26/20 07:11 Pulse 62 06/26/20 07:11 Resp 18 06/26/20 07:11 BP 190/95 H 06/26/20 07:11 Pulse Ox 97 06/26/20 07:11 Body Mass Index 42.9 Const: Other: Awake, alert, in no acute distress, comfortable Eyes: Other: Extraocular muscles intact, sclerae nonicteric Resp: Other: Breathing comfortably on room air, no respiratory distress, no cough GI: Other: Soft, nontender, no palpable mass, normal bowel sounds, no rebound, no rigidity, no guarding Skin: Other: Warm and dry, no rash Progress Note: A&P Fall Risk Details Current Medications: Current Medications Generic Name Dose Route Start Last Admin Trade Name Freq PRN Reason Stop Dose Admin Acetaminophen 650 mg 06/19/20 08:33 Acetaminophen 325 Mg Tablet PO Q6H PRN Pain, Mild (Pain Scale 1-3) Albuterol Sulfate 2 puff 06/19/20 10:42 Albuterol Sulfate 90 Mcg 8 Gm Inhaler INHALE Q4H PRN wheezing Amlodipine Besylate 5 mg 06/23/20 09:00 06/25/20 08:36 Amlodipine Besylate 5 Mg Tablet PO 5 mg DAILY [facility] Administration Protocol Atorvastatin Calcium 80 mg 06/20/20 09:00 06/25/20 08:36 Atorvastatin Calcium 80 Mg Tablet PO 80 mg DAILY [facility] Administration Clonazepam 1 mg 06/19/20 21:00 06/25/20 21:07 Clonazepam 1 Mg Tablet PO 1 mg BID [facility] Administration Clopidogrel Bisulfate 75 mg 06/25/20 09:00 06/25/20 13:33 Clopidogrel Bisulfate 75 Mg Tablet PO 75 mg DAILY [facility] Administration Divalproex Sodium 250 mg 06/19/20 10:45 06/25/20 08:36 Divalproex Sodium Er 250 Mg Tab.Er.24h PO 250 mg DAILY [facility] Administration Docusate Sodium 100 mg 06/25/20 21:00 06/25/20 21:07 Docusate Sodium 100 Mg Capsule PO 100 mg BID [facility] Administration Duloxetine HCl 60 mg 06/19/20 10:45 06/25/20 08:36 Duloxetine Hcl 60 Mg Capsule.Dr PO 60 mg DAILY [facility] Administration Famotidine 20 mg 06/19/20 21:00 06/25/20 21:07 Famotidine 20 Mg Tablet PO 20 mg BID [facility] Administration Gabapentin 100 mg 06/19/20 21:00 06/25/20 21:07 Gabapentin 100 Mg Capsule PO 100 mg BID [facility] Administration Heparin Sodium (Porcine) 5,000 unit 06/21/20 11:45 06/25/20 23:08 Heparin Sodium,Porcine 5,000 Unit/Ml Vial SUBCUT 5,000 unit Q12H [facility] Administration Hydromorphone HCl 1 mg 06/22/20 16:14 Hydromorphone Hcl 1 Mg/Ml Syringe IVPUSH Q4H PRN Pain, Severe (Pain Scale 7-10) Levofloxacin 500 mg in 100 mls @ 100 mls/hr 06/19/20 23:00 06/26/20 00:33 Levaquin IV Infused Q24H [facility] Infusion Metronidazole 500 mg in 100 mls @ 100 mls/hr 06/19/20 11:00 06/26/20 04:12 Flagyl IV Infused Q8H [facility] Infusion Insulin Human Lispro 0 unit 06/20/20 16:30 06/26/20 08:10 Insulin Lispro 100 Unit/Ml 3 Ml Vial SUBCUT Not Given QIDACHS [facility] Protocol Lamotrigine 200 mg 06/19/20 10:45 06/25/20 21:08 Lamotrigine 100 Mg Tablet PO 200 mg BID [facility] Administration Losartan Potassium 100 mg 06/20/20 09:00 06/25/20 08:35 Losartan Potassium 50 Mg Tablet PO 100 mg DAILY [facility] Administration Protocol Magnesium Hydroxide 30 ml 06/26/20 08:06 Milk Of Magnesia 30 Ml Oral.Susp PO DAILY PRN Constipation Metoprolol Tartrate 75 mg 06/19/20 11:00 06/25/20 21:09 Metoprolol Tartrate 50 Mg Tablet PO 75 mg BID [facility] Administration Protocol Oxycodone HCl 5 mg 06/19/20 08:33 06/24/20 13:31 Oxycodone Hcl Immed Release 5 Mg Tablet PO 5 mg Q6H PRN Administration Pain, Moderate (Pain Scale 4-6 Pharmacy Consult 1 each 06/19/20 08:33 Consult Rx Perform Med Rec MISCELLANE ONCE PRN Consult order Risperidone 0.5 mg 06/19/20 10:42 Risperidone 0.5 Mg Tablet PO BID PRN Sleep Sodium Chloride 3 ml 06/19/20 08:33 06/25/20 23:16 0.9 % Sodium Chloride Flush 3 Ml Syringe IVFLUSH 3 ml QSHIFT [facility] Administration Tamsulosin HCl 0.4 mg 06/20/20 09:00 06/25/20 08:36 Tamsulosin Hcl 0.4 Mg Capsule PO 0.4 mg DAILY [facility] Administration Temazepam 15 mg 06/19/20 08:33 Temazepam 15 Mg Capsule PO BEDTIME PRN Insomnia Time Spent With Patient Time: Total time spent is greater than 50% in coordination of care (as documented) at patient's floor/unit and/or counseling patient:
[2020-06-26] MEDS: amLODIPine Besylate 10 MG TABLET PO (08:51)
[2020-06-26] MEDS: Metoprolol Tartrate 50 MG TABLET 75 MG PO ×2 (08:51→21:41)
[2020-06-26] MEDS: Losartan Potassium 50 MG TABLET 100 MG PO (08:52)
[2020-06-26] MEDS: lamoTRIgine 100 MG TABLET 200 MG PO ×2 (08:54→21:42)
[2020-06-26] MEDS: clonazePAM 1 MG TABLET PO ×2 (08:54→21:42)
[2020-06-26] MEDS: Gabapentin 100 MG CAPSULE PO ×2 (08:54→21:42)
[2020-06-26] MEDS: Docusate Sodium 100 MG CAPSULE PO ×2 (08:54→21:42)
[2020-06-26] MEDS: Clopidogrel Bisulfate 75 MG TABLET PO (08:54)
[2020-06-26] MEDS: Tamsulosin HCL 0.4 MG CAPSULE PO (08:54)
[2020-06-26] MEDS: Divalproex Sodium ER 250 MG TAB.ER.24H PO (08:54)
[2020-06-26] MEDS: DULoxetine HCl 60 MG CAPSULE.DR PO (08:54)
[2020-06-26] MEDS: Famotidine 20 MG TABLET PO ×2 (08:54→21:42)
[2020-06-26] MEDS: Atorvastatin Calcium 80 MG TABLET PO (08:54)
[2020-06-26] MEDS: metFORMIN HCl ER 500 MG TAB.ER.24H PO (10:03)
[2020-06-26] MEDS: 0.9 % Sodium Chloride Flush 3 ML SYRINGE IVFLUSH ×3 (10:03→21:44)
--- NOTE | 2020-06-26 10:44 | MHC.CM.PN ---
Addendum entered by Sola Love 06/26/20 14:06: CM received another message from [facility] indicating they do not have enough staff to admit pt after first shift any day throughout the weekend. They requested he be sent before 1430 or be held until the next day. Pt was not ready to DC today, will reassess tomorrow morning and if clear, pt will DC to [facility] on first shift. Original Note: CM received a message from [facility], they have obtained insurance auth and are able to take pt when ready to DC
[2020-06-26] MEDS: Heparin Sodium,Porcine 5,000 UNIT/ML VIAL 5000 UNIT SUBCUT ×2 (11:56→23:00)
--- NOTE | 2020-06-26 12:15 | HO.PM.IMPN ---
Subjective Subjective Date of Service: 06/26/20 Interval History: Seen in follow-up for acute diverticulitis. Doing well no pain, no BM--had surgery Review of Systems General no headache, no dizziness, no fever, no chills. CVS no chest pain, no palpitation. Respiratory no cough, no shortness of breath. Gastrointestinal no nausea, no vomiting, no abdominal pain Physical Exam Vital Signs: Vital Signs: Last Vital Signs Temp 97.5 F 06/26/20 11:28 Pulse 60 06/26/20 11:28 Resp 19 06/26/20 11:28 BP 170/82 H 06/26/20 11:28 Pulse Ox 96 06/26/20 11:28 Body Mass Index 42.9 General: AO X 3, no acute distress Resp: CTA bilateral CVS: S1,S2,RRR GI: +BS, NT, no distention Skin: No rash Neuro: motor grossly intact Psych: appropriate affect Objective Data Current Medications Generic Name Dose Route Start Last Admin Trade Name Freq PRN Reason Stop Dose Admin Acetaminophen 650 mg 06/19/20 08:33 Acetaminophen 325 Mg Tablet PO Q6H PRN Pain, Mild (Pain Scale 1-3) Albuterol Sulfate 2 puff 06/19/20 10:42 Albuterol Sulfate 90 Mcg 8 Gm Inhaler INHALE Q4H PRN wheezing Amlodipine Besylate 10 mg 06/26/20 09:00 06/26/20 08:51 Amlodipine Besylate 10 Mg Tablet PO 10 mg DAILY [facility] Administration Protocol Atorvastatin Calcium 80 mg 06/20/20 09:00 06/26/20 08:54 Atorvastatin Calcium 80 Mg Tablet PO 80 mg DAILY [facility] Administration Clonazepam 1 mg 06/19/20 21:00 06/26/20 08:54 Clonazepam 1 Mg Tablet PO 1 mg BID [facility] Administration Clopidogrel Bisulfate 75 mg 06/25/20 09:00 06/26/20 08:54 Clopidogrel Bisulfate 75 Mg Tablet PO 75 mg DAILY [facility] Administration Divalproex Sodium 250 mg 06/19/20 10:45 06/26/20 08:54 Divalproex Sodium Er 250 Mg Tab.Er.24h PO 250 mg DAILY [facility] Administration Docusate Sodium 100 mg 06/25/20 21:00 06/26/20 08:54 Docusate Sodium 100 Mg Capsule PO 100 mg BID [facility] Administration Duloxetine HCl 60 mg 06/19/20 10:45 06/26/20 08:54 Duloxetine Hcl 60 Mg Capsule.Dr PO 60 mg DAILY [facility] Administration Famotidine 20 mg 06/19/20 21:00 06/26/20 08:54 Famotidine 20 Mg Tablet PO 20 mg BID [facility] Administration Gabapentin 100 mg 06/19/20 21:00 06/26/20 08:54 Gabapentin 100 Mg Capsule PO 100 mg BID [facility] Administration Heparin Sodium (Porcine) 5,000 unit 06/21/20 11:45 06/26/20 11:56 Heparin Sodium,Porcine 5,000 Unit/Ml Vial SUBCUT 5,000 unit Q12H [facility] Administration Hydromorphone HCl 1 mg 06/22/20 16:14 Hydromorphone Hcl 1 Mg/Ml Syringe IVPUSH Q4H PRN Pain, Severe (Pain Scale 7-10) Levofloxacin 500 mg in 100 mls @ 100 mls/hr 06/19/20 23:00 06/26/20 00:33 Levaquin IV Infused Q24H [facility] Infusion Metronidazole 500 mg in 100 mls @ 100 mls/hr 06/19/20 11:00 06/26/20 11:56 Flagyl IV 100 mls/hr Q8H [facility] Administration Insulin Human Lispro 0 unit 06/20/20 16:30 06/26/20 08:10 Insulin Lispro 100 Unit/Ml 3 Ml Vial SUBCUT Not Given QIDACHS [facility] Protocol Lamotrigine 200 mg 06/19/20 10:45 06/26/20 08:54 Lamotrigine 100 Mg Tablet PO 200 mg BID [facility] Administration Losartan Potassium 100 mg 06/20/20 09:00 06/26/20 08:52 Losartan Potassium 50 Mg Tablet PO 100 mg DAILY [facility] Administration Protocol Magnesium Hydroxide 30 ml 06/26/20 08:06 Milk Of Magnesia 30 Ml Oral.Susp PO DAILY PRN Constipation Metoprolol Tartrate 75 mg 06/19/20 11:00 06/26/20 08:51 Metoprolol Tartrate 50 Mg Tablet PO 75 mg BID [facility] Administration Protocol Oxycodone HCl 5 mg 06/19/20 08:33 06/24/20 13:31 Oxycodone Hcl Immed Release 5 Mg Tablet PO 5 mg Q6H PRN Administration Pain, Moderate (Pain Scale 4-6 Pharmacy Consult 1 each 06/19/20 08:33 Consult Rx Perform Med Rec MISCELLANE ONCE PRN Consult order Risperidone 0.5 mg 06/19/20 10:42 Risperidone 0.5 Mg Tablet PO BID PRN Sleep Sodium Chloride 3 ml 06/19/20 08:33 06/26/20 10:03 0.9 % Sodium Chloride Flush 3 Ml Syringe IVFLUSH 3 ml QSHIFT [facility] Administration Tamsulosin HCl 0.4 mg 06/20/20 09:00 06/26/20 08:54 Tamsulosin Hcl 0.4 Mg Capsule PO 0.4 mg DAILY [facility] Administration Temazepam 15 mg 06/19/20 08:33 Temazepam 15 Mg Capsule PO BEDTIME PRN Insomnia Labs CBC & Chem 7: 06/23/20 06:04 06/23/20 06:04 Microbiology Microbiology Results: Microbiology 06/19/20 01:35 Blood - Venous Blood Culture - Final No growth after 5 days. 06/19/20 01:35 Blood - Venous Blood Culture - Final No growth after 5 days. Assessment and Plan (1) Colonic diverticular abscess: Problem details: Too small for IR drainage, treated with IV antibiotics and bowel rest with improvement. Status: Acute Assessment and Plan: 64-year-old with history coronary artery disease, stroke, anxiety, diabetes BPH, dyslipidemia who presented to the emergency department with weakness, fall, abdominal pain found to have diverticulitis with abscess Diverticulitis with abscess--didn't need abscess drainage, transition, surgery waiting for return of bowel function to mo. Family wants to hold of surgery for now. Continue IV Abx but oral at discharge Dysuria--resolved, UA normal. 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 Hypertension Continue losartan, and metoprolol home dose but noted to have elevated blood pressure and pulse despite adjusting pain medication therefore will add Norvasc and follow BP. BPHg pain medicine Continue Flomax Mood Continue risperidone, lamotrigine, duloxetine, Depakote, and clonazepam
[2020-06-26 12:16] LABS: Glucose, Whole Blood 156 mg/dL (60-115)
[2020-06-26] MEDS: Milk of Magnesia 30 ML ORAL.SUSP PO (12:37)
[2020-06-26] MEDS: Insulin Lispro 100 UNIT/ML 3 ML VIAL SUBCUT (13:31)
[2020-06-26 16:23] LABS: Glucose, Whole Blood 106 mg/dL (60-115)
[2020-06-26 21:03] LABS: Glucose, Whole Blood 115 mg/dL (60-115)
[2020-06-26] MEDS: levoFLOXacin/D5W 500 MG/100 ML PIGGYBACK 100 MG IV (23:00)
[2020-06-27] VITALS (8 sets, daily range): BP systolic 140–164; BP diastolic 76–89; PULSE 64–109; RESP 18–20; TEMP 36.4–36.9; O2SAT 95–99
[2020-06-27] MEDS: metroNIDAZOLE/NS 500 MG/100 ML PIGGYBACK 100 MG IV ×3 (02:36→18:45)
[2020-06-27 07:24] LABS: Glucose, Whole Blood 89 mg/dL (60-115)
--- NOTE | 2020-06-27 08:29 | P.PNIM_ITS ---
Subjective Subjective Date of Service: 06/27/20 Interval History: Seen in follow-up for acute diverticulitis. Has no pain and BM Review of Systems General no headache, no dizziness, no fever, no chills. CVS no chest pain, no palpitation. Respiratory no cough, no shortness of breath. Gastrointestinal no nausea, no vomiting, no abdominal pain Physical Exam Vital Signs: Vital Signs: Last Vital Signs Temp 98.3 F 06/27/20 07:22 Pulse 109 H 06/27/20 07:22 Resp 18 06/27/20 07:22 BP 162/87 H 06/27/20 07:22 Pulse Ox 95 06/27/20 07:22 Body Mass Index 42.9 General: AO X 3, no acute distress Resp: CTA bilateral CVS: S1,S2,RRR GI: +BS, NT, no distention, soft Skin: No rash Neuro: motor grossly intact Psych: appropriate affect Objective Data Current Medications Generic Name Dose Route Start Last Admin Trade Name Freq PRN Reason Stop Dose Admin Acetaminophen 650 mg 06/19/20 08:33 Acetaminophen 325 Mg Tablet PO Q6H PRN Pain, Mild (Pain Scale 1-3) Albuterol Sulfate 2 puff 06/19/20 10:42 Albuterol Sulfate 90 Mcg 8 Gm Inhaler INHALE Q4H PRN wheezing Amlodipine Besylate 10 mg 06/26/20 09:00 06/26/20 08:51 Amlodipine Besylate 10 Mg Tablet PO 10 mg DAILY [facility] Administration Protocol Atorvastatin Calcium 80 mg 06/20/20 09:00 06/26/20 08:54 Atorvastatin Calcium 80 Mg Tablet PO 80 mg DAILY [facility] Administration Clonazepam 1 mg 06/19/20 21:00 06/26/20 21:42 Clonazepam 1 Mg Tablet PO 1 mg BID [facility] Administration Clopidogrel Bisulfate 75 mg 06/25/20 09:00 06/26/20 08:54 Clopidogrel Bisulfate 75 Mg Tablet PO 75 mg DAILY [facility] Administration Divalproex Sodium 250 mg 06/19/20 10:45 06/26/20 08:54 Divalproex Sodium Er 250 Mg Tab.Er.24h PO 250 mg DAILY [facility] Administration Docusate Sodium 100 mg 06/25/20 21:00 06/26/20 21:42 Docusate Sodium 100 Mg Capsule PO 100 mg BID [facility] Administration Duloxetine HCl 60 mg 06/19/20 10:45 06/26/20 08:54 Duloxetine Hcl 60 Mg Capsule.Dr PO 60 mg DAILY [facility] Administration Famotidine 20 mg 06/19/20 21:00 06/26/20 21:42 Famotidine 20 Mg Tablet PO 20 mg BID [facility] Administration Gabapentin 100 mg 06/19/20 21:00 06/26/20 21:42 Gabapentin 100 Mg Capsule PO 100 mg BID [facility] Administration Heparin Sodium (Porcine) 5,000 unit 06/21/20 11:45 06/26/20 23:00 Heparin Sodium,Porcine 5,000 Unit/Ml Vial SUBCUT 5,000 unit Q12H [facility] Administration Hydromorphone HCl 1 mg 06/22/20 16:14 Hydromorphone Hcl 1 Mg/Ml Syringe IVPUSH Q4H PRN Pain, Severe (Pain Scale 7-10) Levofloxacin 500 mg in 100 mls @ 100 mls/hr 06/19/20 23:00 06/27/20 00:16 Levaquin IV Infused Q24H [facility] Infusion Metronidazole 500 mg in 100 mls @ 100 mls/hr 06/19/20 11:00 06/27/20 03:52 Flagyl IV Infused Q8H [facility] Infusion Insulin Human Lispro 0 unit 06/20/20 16:30 06/27/20 08:08 Insulin Lispro 100 Unit/Ml 3 Ml Vial SUBCUT Not Given QIDACHS [facility] Protocol Lamotrigine 200 mg 06/19/20 10:45 06/26/20 21:42 Lamotrigine 100 Mg Tablet PO 200 mg BID [facility] Administration Losartan Potassium 100 mg 06/20/20 09:00 06/26/20 08:52 Losartan Potassium 50 Mg Tablet PO 100 mg DAILY [facility] Administration Protocol Magnesium Hydroxide 30 ml 06/26/20 08:06 06/26/20 12:37 Milk Of Magnesia 30 Ml Oral.Susp PO 30 ml DAILY [facility] Administration Constipation Metoprolol Tartrate 75 mg 06/19/20 11:00 06/26/20 21:41 Metoprolol Tartrate 50 Mg Tablet PO 75 mg BID [facility] Administration Protocol Oxycodone HCl 5 mg 06/19/20 08:33 06/24/20 13:31 Oxycodone Hcl Immed Release 5 Mg Tablet PO 5 mg Q6H PRN Administration Pain, Moderate (Pain Scale 4-6 Pharmacy Consult 1 each 06/19/20 08:33 Consult Rx Perform Med Rec MISCELLANE ONCE PRN Consult order Risperidone 0.5 mg 06/19/20 10:42 Risperidone 0.5 Mg Tablet PO BID PRN Sleep Sodium Chloride 3 ml 06/19/20 08:33 06/26/20 21:44 0.9 % Sodium Chloride Flush 3 Ml Syringe IVFLUSH 3 ml QSHIFT [facility] Administration Tamsulosin HCl 0.4 mg 06/20/20 09:00 06/26/20 08:54 Tamsulosin Hcl 0.4 Mg Capsule PO 0.4 mg DAILY [facility] Administration Temazepam 15 mg 06/19/20 08:33 Temazepam 15 Mg Capsule PO BEDTIME PRN Insomnia Labs CBC & Chem 7: 06/23/20 06:04 06/23/20 06:04 Microbiology Microbiology Results: Microbiology 06/19/20 01:35 Blood - Venous Blood Culture - Final No growth after 5 days. 06/19/20 01:35 Blood - Venous Blood Culture - Final No growth after 5 days. Assessment and Plan (1) Fall: Status: Acute (2) Dysuria: Status: Acute (3) Colonic diverticular abscess: Problem details: Too small for IR drainage, treated with IV antibiotics and bowel rest with impr ovement. Status: Acute (4) Hypertension: Status: Acute (5) Acute diverticulitis: Status: Acute Assessment and Plan: 64-year-old with history coronary artery disease, stroke, anxiety, diabetes BPH, dyslipidemia who presented to the emergency department with weakness, fall, abdominal pain found to have diverticulitis with abscess Diverticulitis with abscess--didn't need abscess drainage. surgery waiting for return of bowel function to dc. Tolerating diet so far. PO antibiotic at discharge Dysuria--resolved, UA normal. 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 Hypertension Continue losartan, and metoprolol home dose but noted to have elevated blood pressure and pulse despite adjusting pain medication therefore will add Norvasc and follow BP. BPHg pain medicine Continue Flomax Mood Continue risperidone, lamotrigine, duloxetine, Depakote, and clonazepam Discharge when clear by surgery
[2020-06-27] MEDS: Atorvastatin Calcium 80 MG TABLET PO (09:41)
[2020-06-27] MEDS: Tamsulosin HCL 0.4 MG CAPSULE PO (09:41)
[2020-06-27] MEDS: Docusate Sodium 100 MG CAPSULE PO ×2 (09:41→20:38)
[2020-06-27] MEDS: lamoTRIgine 100 MG TABLET 200 MG PO ×2 (09:41→20:39)
[2020-06-27] MEDS: Famotidine 20 MG TABLET PO ×2 (09:41→20:38)
[2020-06-27] MEDS: Divalproex Sodium ER 250 MG TAB.ER.24H PO (09:41)
[2020-06-27] MEDS: Clopidogrel Bisulfate 75 MG TABLET PO (09:41)
[2020-06-27] MEDS: clonazePAM 1 MG TABLET PO ×2 (09:41→20:38)
[2020-06-27] MEDS: 0.9 % Sodium Chloride Flush 3 ML SYRINGE IVFLUSH ×2 (09:41→18:49)
[2020-06-27] MEDS: Gabapentin 100 MG CAPSULE PO ×2 (09:41→20:40)
[2020-06-27] MEDS: DULoxetine HCl 60 MG CAPSULE.DR PO (09:41)
[2020-06-27] MEDS: Metoprolol Tartrate 50 MG TABLET 75 MG PO ×2 (09:42→20:40)
[2020-06-27] MEDS: Losartan Potassium 50 MG TABLET 100 MG PO (09:42)
[2020-06-27] MEDS: amLODIPine Besylate 10 MG TABLET PO (09:42)
[2020-06-27 11:43] LABS: Glucose, Whole Blood 101 mg/dL (60-115)
--- NOTE | 2020-06-27 11:53 | P.PNGS_ITS ---
Subjective Subjective Date of Service: 06/27/20 Interval history: Sleepy this morning, denies abdominal pain and offers no other complaint. Physical Exam Vital Signs: Vital Signs: Last Vital Signs Temp 97.6 F 06/27/20 11:37 Pulse 64 06/27/20 11:37 Resp 18 06/27/20 11:37 BP 141/77 H 06/27/20 11:37 Pulse Ox 97 06/27/20 11:37 Body Mass Index 42.9 Const: Other: Sleepy, cooperative, in no apparent distress Resp: Effort & Inspection: normal respiratory effort Auscultation: clear to auscultation bilaterally Cardio: Rate: regular rate Rhythm: regular rhythm GI: Other: Soft, nondistended, nontender, no palpable masses Skin: Other: Normal color, warm and dry Progress Note: A&P Assessment and plan (1) Colonic diverticular abscess: Problem details: Too small for IR drainage, treated with IV antibiotics and bowel rest with improvement. Status: Acute Assessment and Plan: He has improved with antibiotic therapy and is on a solid diet. He is weak and will require transfer to short-term rehabilitation, which is anticipated in the next 24-48 hours, once full return of bowel function is confirmed. (2) Acute diverticulitis: Status: Acute Assessment and Plan: Improved, continue Levaquin and metronidazole. Fall Risk Details Current Medications: Current Medications Generic Name Dose Route Start Last Admin Trade Name Freq PRN Reason Stop Dose Admin Acetaminophen 650 mg 06/19/20 08:33 Acetaminophen 325 Mg Tablet PO Q6H PRN Pain, Mild (Pain Scale 1-3) Albuterol Sulfate 2 puff 06/19/20 10:42 Albuterol Sulfate 90 Mcg 8 Gm Inhaler INHALE Q4H PRN wheezing Amlodipine Besylate 10 mg 06/26/20 09:00 06/27/20 09:42 Amlodipine Besylate 10 Mg Tablet PO 10 mg DAILY [facility] Administration Protocol Atorvastatin Calcium 80 mg 06/20/20 09:00 06/27/20 09:41 Atorvastatin Calcium 80 Mg Tablet PO 80 mg DAILY [facility] Administration Clonazepam 1 mg 06/19/20 21:00 06/27/20 09:41 Clonazepam 1 Mg Tablet PO 1 mg BID [facility] Administration Clopidogrel Bisulfate 75 mg 06/25/20 09:00 06/27/20 09:41 Clopidogrel Bisulfate 75 Mg Tablet PO 75 mg DAILY [facility] Administration Divalproex Sodium 250 mg 06/19/20 10:45 06/27/20 09:41 Divalproex Sodium Er 250 Mg Tab.Er.24h PO 250 mg DAILY [facility] Administration Docusate Sodium 100 mg 06/25/20 21:00 06/27/20 09:41 Docusate Sodium 100 Mg Capsule PO 100 mg BID [facility] Administration Duloxetine HCl 60 mg 06/19/20 10:45 06/27/20 09:41 Duloxetine Hcl 60 Mg Capsule.Dr PO 60 mg DAILY [facility] Administration Famotidine 20 mg 06/19/20 21:00 06/27/20 09:41 Famotidine 20 Mg Tablet PO 20 mg BID [facility] Administration Gabapentin 100 mg 06/19/20 21:00 06/27/20 09:41 Gabapentin 100 Mg Capsule PO 100 mg BID [facility] Administration Heparin Sodium (Porcine) 5,000 unit 06/21/20 11:45 06/26/20 23:00 Heparin Sodium,Porcine 5,000 Unit/Ml Vial SUBCUT 5,000 unit Q12H [facility] Administration Hydromorphone HCl 1 mg 06/22/20 16:14 Hydromorphone Hcl 1 Mg/Ml Syringe IVPUSH Q4H PRN Pain, Severe (Pain Scale 7-10) Levofloxacin 500 mg in 100 mls @ 100 mls/hr 06/19/20 23:00 06/27/20 00:16 Levaquin IV Infused Q24H [facility] Infusion Metronidazole 500 mg in 100 mls @ 100 mls/hr 06/19/20 11:00 06/27/20 03:52 Flagyl IV Infused Q8H [facility] Infusion Insulin Human Lispro 0 unit 06/20/20 16:30 06/27/20 08:08 Insulin Lispro 100 Unit/Ml 3 Ml Vial SUBCUT Not Given QIDACHS [facility] Protocol Lamotrigine 200 mg 06/19/20 10:45 06/27/20 09:41 Lamotrigine 100 Mg Tablet PO 200 mg BID [facility] Administration Losartan Potassium 100 mg 06/20/20 09:00 06/27/20 09:42 Losartan Potassium 50 Mg Tablet PO 100 mg DAILY [facility] Administration Protocol Magnesium Hydroxide 30 ml 06/26/20 08:06 06/26/20 12:37 Milk Of Magnesia 30 Ml Oral.Susp PO 30 ml DAILY PRN Administration Constipation Metoprolol Tartrate 75 mg 06/19/20 11:00 06/27/20 09:42 Metoprolol Tartrate 50 Mg Tablet PO 75 mg BID [facility] Administration Protocol Oxycodone HCl 5 mg 06/19/20 08:33 06/24/20 13:31 Oxycodone Hcl Immed Release 5 Mg Tablet PO 5 mg Q6H PRN Administration Pain, Moderate (Pain Scale 4-6 Pharmacy Consult 1 each 06/19/20 08:33 Consult Rx Perform Med Rec MISCELLANE ONCE PRN Consult order Risperidone 0.5 mg 06/19/20 10:42 Risperidone 0.5 Mg Tablet PO BID PRN Sleep Sodium Chloride 3 ml 06/19/20 08:33 06/27/20 09:41 0.9 % Sodium Chloride Flush 3 Ml Syringe IVFLUSH 3 ml QSHIFT [facility] Administration Tamsulosin HCl 0.4 mg 06/20/20 09:00 06/27/20 09:41 Tamsulosin Hcl 0.4 Mg Capsule PO 0.4 mg DAILY [facility] Administration Temazepam 15 mg 06/19/20 08:33 Temazepam 15 Mg Capsule PO BEDTIME PRN Insomnia Time Spent With Patient Time: Total time spent is greater than 50% in coordination of care (as documented) at patient's floor/unit and/or counseling patient: Time with patient: 15 - 24 minutes
[2020-06-27] MEDS: Heparin Sodium,Porcine 5,000 UNIT/ML VIAL 5000 UNIT SUBCUT (12:08)
[2020-06-27 16:36] LABS: Glucose, Whole Blood 110 mg/dL (60-115)
[2020-06-27 20:59] LABS: Glucose, Whole Blood 99 mg/dL (60-115)
[2020-06-28] VITALS (8 sets, daily range): BP systolic 142–162; BP diastolic 82–90; PULSE 65–82; RESP 16–19; TEMP 36.1–36.8; O2SAT 93–97
--- NOTE | 2020-06-28 | CT_ITS ---
EXAMINATION: CT HEAD WITHOUT CONTRAST CLINICAL INFORMATION: Altered mental status. COMPARISON: Multiple priors, most recent CT had dated 06/19/2020. TECHNIQUE: Contiguous axial imaging was performed from the skull base to vertex without intravenous administration of contrast. This CT examination was performed using dose optimization techniques as appropriate, variously including the following: *Automated exposure control *Adjustment of mA and/or kV according to patient size (this includes techniques or standardized protocols for targeted exams where dose is matched to indication/reason for exam; i.e. extremities or head) *Use of iterative reconstruction technique DLP: 735 mGy-cm FINDINGS: There is no evidence of acute intracranial hemorrhage or territorial infarction. No abnormal mass effect or midline shift is seen. [place] to white matter differentiation is well preserved. No extra-axial fluid collections are identified. The ventricles are normal in size. There is no abnormal attenuation within the brain parenchyma. The osseous structures and soft tissues are normal. The mastoid air cells and visualized portions of the paranasal sinuses are well aerated. CT/CT head/brain wo con IMPRESSION: No acute intracranial hemorrhage or mass effect.
[2020-06-28] MEDS: levoFLOXacin/D5W 500 MG/100 ML PIGGYBACK 100 MG IV ×2 (00:28→23:11)
[2020-06-28] MEDS: 0.9 % Sodium Chloride Flush 3 ML SYRINGE IVFLUSH ×4 (00:36→23:17)
[2020-06-28] MEDS: Heparin Sodium,Porcine 5,000 UNIT/ML VIAL 5000 UNIT SUBCUT ×3 (00:37→23:11)
[2020-06-28] MEDS: metroNIDAZOLE/NS 500 MG/100 ML PIGGYBACK 100 MG IV ×3 (03:42→18:37)
[2020-06-28 08:09] LABS: Glucose, Whole Blood 95 mg/dL (60-115)
[2020-06-28] MEDS: DULoxetine HCl 60 MG CAPSULE.DR PO (08:53)
[2020-06-28] MEDS: Tamsulosin HCL 0.4 MG CAPSULE PO (08:53)
[2020-06-28] MEDS: Atorvastatin Calcium 80 MG TABLET PO (08:53)
[2020-06-28] MEDS: Docusate Sodium 100 MG CAPSULE PO ×2 (08:53→20:55)
[2020-06-28] MEDS: lamoTRIgine 100 MG TABLET 200 MG PO ×2 (08:53→20:55)
[2020-06-28] MEDS: Gabapentin 100 MG CAPSULE PO (08:53)
[2020-06-28] MEDS: Famotidine 20 MG TABLET PO ×2 (08:53→20:55)
[2020-06-28] MEDS: Clopidogrel Bisulfate 75 MG TABLET PO (08:53)
[2020-06-28] MEDS: clonazePAM 1 MG TABLET PO (08:53)
[2020-06-28] MEDS: Divalproex Sodium ER 250 MG TAB.ER.24H PO (08:53)
[2020-06-28] MEDS: Losartan Potassium 50 MG TABLET 100 MG PO (08:54)
[2020-06-28] MEDS: amLODIPine Besylate 10 MG TABLET PO (08:54)
[2020-06-28] MEDS: Metoprolol Tartrate 50 MG TABLET 75 MG PO ×2 (08:54→20:55)
--- NOTE | 2020-06-28 09:08 | P.PNIM_ITS ---
Subjective Subjective Date of Service: 06/28/20 Interval History: Seen in follow-up for acute diverticulitis. Has no pain and BM Review of Systems General no headache, no dizziness, no fever, no chills. CVS no chest pain, no palpitation. Respiratory no cough, no shortness of breath. Gastrointestinal no nausea, no vomiting, no abdominal pain Physical Exam Vital Signs: Vital Signs: Last Vital Signs Temp 96.9 F 06/28/20 07:34 Pulse 68 06/28/20 08:54 Resp 18 06/28/20 07:34 BP 156/84 H 06/28/20 08:54 Pulse Ox 97 06/28/20 07:34 Body Mass Index 42.9 Const: Other: General: AO X 3, no acute distress Resp: CTA bilateral CVS: S1,S2,RRR GI: +BS, NT, no distention, soft Skin: No rash Neuro: motor grossly intact Psych: appropriate affect Objective Data Current Medications Generic Name Dose Route Start Last Admin Trade Name Freq PRN Reason Stop Dose Admin Acetaminophen 650 mg 06/19/20 08:33 Acetaminophen 325 Mg Tablet PO Q6H PRN Pain, Mild (Pain Scale 1-3) Albuterol Sulfate 2 puff 06/19/20 10:42 Albuterol Sulfate 90 Mcg 8 Gm Inhaler INHALE Q4H PRN wheezing Amlodipine Besylate 10 mg 06/26/20 09:00 06/28/20 08:54 Amlodipine Besylate 10 Mg Tablet PO 10 mg DAILY AARON Administration Protocol Atorvastatin Calcium 80 mg 06/20/20 09:00 06/28/20 08:53 Atorvastatin Calcium 80 Mg Tablet PO 80 mg DAILY [facility] Administration Clonazepam 1 mg 06/19/20 21:00 06/28/20 08:53 Clonazepam 1 Mg Tablet PO 1 mg BID A[facility]ON Administration Clopidogrel Bisulfate 75 mg 06/25/20 09:00 06/28/20 08:53 Clopidogrel Bisulfate 75 Mg Tablet PO 75 mg DAILY [facility] Administration Divalproex Sodium 250 mg 06/19/20 10:45 06/28/20 08:53 Divalproex Sodium Er 250 Mg Tab.Er.24h PO 250 mg DAILY [facility]ON Administration Docusate Sodium 100 mg 06/25/20 21:00 06/28/20 08:53 Docusate Sodium 100 Mg Capsule PO 100 mg BID A[facility]ON Administration Duloxetine HCl 60 mg 06/19/20 10:45 06/28/20 08:53 Duloxetine Hcl 60 Mg Capsule.Dr PO 60 mg DAILY [facility] Administration Famotidine 20 mg 06/19/20 21:00 06/28/20 08:53 Famotidine 20 Mg Tablet PO 20 mg BID A[facility]ON Administration Gabapentin 100 mg 06/19/20 21:00 06/28/20 08:53 Gabapentin 100 Mg Capsule PO 100 mg BID A[facility]ON Administration Heparin Sodium (Porcine) 5,000 unit 06/21/20 11:45 06/28/20 00:37 Heparin Sodium,Porcine 5,000 Unit/Ml Vial SUBCUT 5,000 unit Q12H [facility] Administration Levofloxacin 500 mg in 100 mls @ 100 mls/hr 06/19/20 23:00 06/28/20 01:47 Levaquin IV Infused Q24H [facility] Infusion Metronidazole 500 mg in 100 mls @ 100 mls/hr 06/19/20 11:00 06/28/20 04:53 Flagyl IV Infused Q8H [facility] Infusion Insulin Human Lispro 0 unit 06/20/20 16:30 06/28/20 08:52 Insulin Lispro 100 Unit/Ml 3 Ml Vial SUBCUT Not Given QIDACHS [facility] Protocol Lamotrigine 200 mg 06/19/20 10:45 06/28/20 08:53 Lamotrigine 100 Mg Tablet PO 200 mg BID AARON Administration Losartan Potassium 100 mg 06/20/20 09:00 06/28/20 08:54 Losartan Potassium 50 Mg Tablet PO 100 mg DAILY [facility] Administration Protocol Magnesium Hydroxide 30 ml 06/26/20 08:06 06/26/20 12:37 Milk Of Magnesia 30 Ml Oral.Susp PO 30 ml DAILY PRN Administration Constipation Metoprolol Tartrate 75 mg 06/19/20 11:00 06/28/20 08:54 Metoprolol Tartrate 50 Mg Tablet PO 75 mg BID [facility] Administration Protocol Oxycodone HCl 5 mg 06/19/20 08:33 06/24/20 13:31 Oxycodone Hcl Immed Release 5 Mg Tablet PO 5 mg Q6H PRN Administration Pain, Moderate (Pain Scale 4-6 Pharmacy Consult 1 each 06/19/20 08:33 Consult Rx Perform Med Rec MISCELLANE ONCE PRN Consult order Risperidone 0.5 mg 06/19/20 10:42 Risperidone 0.5 Mg Tablet PO BID PRN Sleep Sodium Chloride 3 ml 06/19/20 08:33 06/28/20 08:53 0.9 % Sodium Chloride Flush 3 Ml Syringe IVFLUSH 3 ml QSHIFT [facility] Administration Tamsulosin HCl 0.4 mg 06/20/20 09:00 06/28/20 08:53 Tamsulosin Hcl 0.4 Mg Capsule PO 0.4 mg DAILY [facility] Administration Temazepam 15 mg 06/19/20 08:33 Temazepam 15 Mg Capsule PO BEDTIME PRN Insomnia Labs CBC & Chem 7: 06/23/20 06:04 06/23/20 06:04 Microbiology Microbiology Results: Microbiology 06/19/20 01:35 Blood - Venous Blood Culture - Final No growth after 5 days. 06/19/20 01:35 Blood - Venous Blood Culture - Final No growth after 5 days. Assessment and Plan (1) Fall: Status: Acute (2) Dysuria: Status: Acute (3) Colonic diverticular abscess: Problem details: Too small for IR drainage, treated with IV antibiotics and bowel rest with improvement. Status: Acute (4) Hypertension: Status: Acute (5) Acute diverticulitis: Status: Acute Assessment and Plan: 64-year-old with history coronary artery disease, stroke, anxiety, diabetes BPH, dyslipidemia who presented to the emergency department with weakness, fall, abdominal pain found to have diverticulitis with abscess Diverticulitis with abscess--didn't need abscess drainage. surgery waiting for return of bowel function to dc. Tolerating solid diet so far. PO antibiotic at discharge Dysuria--resolved, UA normal. 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 Hypertension Continue losartan, and metoprolol home dose but noted to have elevated blood pressure and pulse despite adjusting pain medication therefore will add Norvasc and follow BP. BPHg pain medicine Continue Flomax Mood Continue risperidone, lamotrigine, duloxetine, Depakote, and clonazepam Discharge when clear by surgery
--- NOTE | 2020-06-28 11:32 | P.PNGS_ITS ---
Subjective Subjective Date of Service: 06/28/20 Interval history: Sleepy but arousable. Denies abdominal pain. Physical Exam Vital Signs: Vital Signs: Last Vital Signs Temp 97.2 F 06/28/20 11:23 Pulse 65 06/28/20 11:23 Resp 18 06/28/20 11:23 BP 145/82 H 06/28/20 11:23 Pulse Ox 96 06/28/20 11:23 Body Mass Index 42.9 Const: General: no acute distress Resp: Effort & Inspection: normal respiratory effort Auscultation: clear to auscultation bilaterally Cardio: Rate: regular rate Rhythm: regular rhythm GI: Other: Soft, nontender, nondistended Skin: Other: Normal color, warm and dry Progress Note: A&P Assessment and plan (1) Colonic diverticular abscess: Problem details: Too small for IR drainage, treated with IV antibiotics and bowel rest with im provement. Status: Acute Assessment and Plan: Appears stable. Tolerating solid food. No bowel movement yet. He has been on Colace b.i.d.. We will give a dose of MiraLax today. Transfer to short-term rehabilitation once full return of GI function is documented. (2) Fall: Problem details: Weakness Status: Acute Assessment and Plan: He is very sleepy and weak. Discussed with staff. He is unable to assist with transfers to get out of bed. Physical therapy consultation is in place. Fall Risk Details Current Medications: Current Medications Generic Name Dose Route Start Last Admin Trade Name Freq PRN Reason Stop Dose Admin Acetaminophen 650 mg 06/19/20 08:33 Acetaminophen 325 Mg Tablet PO Q6H PRN Pain, Mild (Pain Scale 1-3) Albuterol Sulfate 2 puff 06/19/20 10:42 Albuterol Sulfate 90 Mcg 8 Gm Inhaler INHALE Q4H PRN wheezing Amlodipine Besylate 10 mg 06/26/20 09:00 06/28/20 08:54 Amlodipine Besylate 10 Mg Tablet PO 10 mg DAILY [facility]ARON Administration Protocol Atorvastatin Calcium 80 mg 06/20/20 09:00 06/28/20 08:53 Atorvastatin Calcium 80 Mg Tablet PO 80 mg DAILY [facility] Administration Clonazepam 1 mg 06/19/20 21:00 06/28/20 08:53 Clonazepam 1 Mg Tablet PO 1 mg BID A[facility]ON Administration Clopidogrel Bisulfate 75 mg 06/25/20 09:00 06/28/20 08:53 Clopidogrel Bisulfate 75 Mg Tablet PO 75 mg DAILY [facility] Administration Divalproex Sodium 250 mg 06/19/20 10:45 06/28/20 08:53 Divalproex Sodium Er 250 Mg Tab.Er.24h PO 250 mg DAILY [facility]ON Administration Docusate Sodium 100 mg 06/25/20 21:00 06/28/20 08:53 Docusate Sodium 100 Mg Capsule PO 100 mg BID [facility]ON Administration Duloxetine HCl 60 mg 06/19/20 10:45 06/28/20 08:53 Duloxetine Hcl 60 Mg Capsule.Dr PO 60 mg DAILY [facility] Administration Famotidine 20 mg 06/19/20 21:00 06/28/20 08:53 Famotidine 20 Mg Tablet PO 20 mg BID A[facility]ON Administration Gabapentin 100 mg 06/19/20 21:00 06/28/20 08:53 Gabapentin 100 Mg Capsule PO 100 mg BID [facility] Administration Heparin Sodium (Porcine) 5,000 unit 06/21/20 11:45 06/28/20 11:11 Heparin Sodium,Porcine 5,000 Unit/Ml Vial SUBCUT 5,000 unit Q12H [facility] Administration Levofloxacin 500 mg in 100 mls @ 100 mls/hr 06/19/20 23:00 06/28/20 01:47 Levaquin IV Infused Q24H [facility] Infusion Metronidazole 500 mg in 100 mls @ 100 mls/hr 06/19/20 11:00 06/28/20 11:11 Flagyl IV 100 mls/hr Q8H [facility] Administration Insulin Human Lispro 0 unit 06/20/20 16:30 06/28/20 11:30 Insulin Lispro 100 Unit/Ml 3 Ml Vial SUBCUT Not Given QIDACHS [facility] Protocol Lamotrigine 200 mg 06/19/20 10:45 06/28/20 08:53 Lamotrigine 100 Mg Tablet PO 200 mg BID [facility]ON Administration Losartan Potassium 100 mg 06/20/20 09:00 06/28/20 08:54 Losartan Potassium 50 Mg Tablet PO 100 mg DAILY [facility] Administration Protocol Magnesium Hydroxide 30 ml 06/26/20 08:06 06/26/20 12:37 Milk Of Magnesia 30 Ml Oral.Susp PO 30 ml DAILY PRN Administration Constipation Metoprolol Tartrate 75 mg 06/19/20 11:00 06/28/20 08:54 Metoprolol Tartrate 50 Mg Tablet PO 75 mg BID AARON Administration Protocol Pharmacy Consult 1 each 06/19/20 08:33 Consult Rx Perform Med Rec MISCELLANE ONCE PRN Consult order Polyethylene Glycol 17 gm 06/28/20 11:29 Polyethylene Glycol 3350 17 Gm Powd.Pack PO 06/28/20 11:30 ONCE ONE Risperidone 0.5 mg 06/19/20 10:42 Risperidone 0.5 Mg Tablet PO BID PRN Sleep Sodium Chloride 3 ml 06/19/20 08:33 06/28/20 08:53 0.9 % Sodium Chloride Flush 3 Ml Syringe IVFLUSH 3 ml QSHIFT [facility] Administration Tamsulosin HCl 0.4 mg 06/20/20 09:00 06/28/20 08:53 Tamsulosin Hcl 0.4 Mg Capsule PO 0.4 mg DAILY [facility] Administration Temazepam 15 mg 06/19/20 08:33 Temazepam 15 Mg Capsule PO BEDTIME PRN Insomnia Time Spent With Patient Time: Total time spent is greater than 50% in coordination of care (as documented) at patient's floor/unit and/or counseling patient: Time with patient: less than 15 minutes
[2020-06-28 12:02] LABS: Glucose, Whole Blood 117 mg/dL (60-115)
[2020-06-28] MEDS: polyethylene glycoL 3350 17 GM POWD.PACK PO (12:37)
[2020-06-28 14:26] LABS: MANUAL DIFF FLAG NO
[2020-06-28 14:27] LABS: Basophils Percent Auto 0.3 % (0-2); Eosinophils Absolute Auto 0.1 X10*3/uL (0.0-0.4); Eosinophils Percent Auto 0.8 % (0-4); Hematocrit 39.5 % (42-52); Hemoglobin 13.3 g/dl (14.0-18.0); Imm Gran Abs Auto 0.05 X10*3/uL (0.00-0.03); Imm Gran Pct Auto 0.7 % (0.0-0.4); Lymphocytes Absolute Auto 2.6 X10*3/uL (1.2-4.9); Lymphocytes Percent Auto 34.3 % (20-40); Mean Corpuscular HGB Conc 33.7 g/dl (31.0-36.0); Mean Corpuscular Hemoglobin 29.4 pg (27.0-33.0); Mean Corpuscular Volume 87.4 fL (80-98); Mean Platelet Volume 9.2 fL (9.4-12.4); Monocytes Absolute Auto 0.8 X10*3/uL (0.1-1.2); Neutrophils Percent Auto 52.9 % (45-73); Platelet Count 259 X10*3/uL (160-400); Red Blood Count 4.52 X10*6/uL (4.60-5.80); Red Cell Distribution Width 12.6 % (11.0-16.0); White Blood Count 7.6 X10*3/uL (4.8-10.8)
[2020-06-28 14:34] LABS: INTERNATIONAL NORM RATIO 1.2 (0.9-1.1); Prothrombin Time 14.6 SEC (10.8-13.0)
[2020-06-28 14:48] LABS: Alanine Aminotransferase 23 U/L (0-40); Albumin Level 4.1 g/dL (3.5-5.0); Alkaline Phosphatase 58 U/L (39-117); Anion Gap 14 (12-20); Aspartate Amino Transferase 26 U/L (5-37); Bilirubin Total 0.5 mg/dL (0.0-1.0); Blood Urea Nitrogen 9 mg/dL (9-16); Calcium 8.1 mg/dL (8.4-10.2); Carbon Dioxide 29 mmol/L (22-29); Chloride 104 mmol/L (96-108); Estimated Glomerular Filt Rate > 60; Glucose Random 115 mg/dL (60-115); Potassium 3.6 mmol/l (3.3-5.1); Sodium 143 mmol/L (135-145); Total Protein 6.2 g/dL (6.5-8.0)
--- NOTE | 2020-06-28 15:11 | PC.NURSE ---
Addendum entered by Keyla Gómez RN 06/28/20 18:20: Pt having audible congestion. Lung sounds diminished, unable to hear crackles. O2 93-95% on RA. Dr. Goodrich made aware. No new orders. Original Note: 1145- Pt more drowsy than earlier this morning. Pt opens eyes to command but does not stay open. Mumbled speech. Vitals WNL. Dr. Mcdonough made aware. No new orders. 1330- Pt increasing lethargic. Mumbled speech, unable to understand patient. Pt unable to eat lunch due to lethargy. Staff attempted to feed pt, but unsafe. Dr. Mcdonough updated. Dr. Goodrich at bedside to assess pt. Ordered labs and head CT. No other new orders at this time. Will continue to monitor.
[2020-06-28 16:06] LABS: Glucose, Whole Blood 121 mg/dL (60-115)
--- NOTE | 2020-06-28 16:13 | PM.EVENT ---
Event Note Date of Service: 06/28/20 Event Note: Pt lethargic On exam he is somnolent but arousable, he follows command but very slow. Obtained head CT which was negative, labs including CBC, CMP PT INR obtaine dwith no significant abnormal findings. Vitals within normal range. Pt received Klonipin as well as gabapentin and therefore effects of sedation most likely from these meds. Will hold all sedative meds and monitor mentation
[2020-06-28 18:10] LABS: Glucose Urine UA NEG (NEG); Leukocyte Esterase Urine NEG (NEG); Nitrite Urine POS (NEG); PH 7.5 (5.0-8.0); Specific Gravity - Urine 1.015 (1.005-1.025); Urine Blood NEG (NEG); Urine Ketones 5 MG/DL (NEG); Urine Protein NEG (NEG-TRACE)
[2020-06-28 18:11] LABS: Appearance Urine CLEAR; Color Urine YELLOW
[2020-06-28 18:18] LABS: RBC Urine 0 /HPF (0); WBC Urine 0-2 /HPF (0-4)
--- NOTE | 2020-06-28 18:20 | PC.NURSE ---
Addendum entered by Keyla Gómez RN 06/28/20 19:21: Pt had large loose/semi formed BM on bedside commode. Original Note: Pt has had poor appetite today. Ate less than 25% for each meal. Pt given colace, prune juice, and miralax. No BM. Will continue to monitor.
--- NOTE | 2020-06-28 18:22 | PC.NURSE ---
Pt had no urinated in over 8 hours, pt has no urge to go. Bladder scanned for 554ml. Dr. Granger made aware. Straight cath ordered placed. Pt straight cath'd for about 400ml. Will continue to monitor.
[2020-06-28 20:48] LABS: Glucose, Whole Blood 109 mg/dL (60-115)
[2020-06-29] VITALS (9 sets, daily range): BP systolic 154–179; BP diastolic 83–97; PULSE 69–90; RESP 18–20; TEMP 36–37; O2SAT 91–100
--- NOTE | 2020-06-29 | CT_ITS ---
EXAMINATION: CT HEAD WITHOUT CONTRAST (STROKE PROTOCOL) CLINICAL INFORMATION: Stroke protocol. COMPARISON: CT 06/28/2020 TECHNIQUE: Contiguous axial imaging was performed from the skull base to vertex without intravenous administration of contrast. This CT examination was performed using dose optimization techniques as appropriate, variously including the following: *Automated exposure control *Adjustment of mA and/or kV according to patient size (this includes techniques or standardized protocols for targeted exams where dose is matched to indication/reason for exam; i.e. extremities or head) *Use of iterative reconstruction technique DLP: 793 mGy-cm FINDINGS: There is no intracranial hemorrhage, hematoma, or extra-axial fluid collection. The ventricles are normal in size. There is no hydrocephalus, edema, or mass effect. The alexander-white matter differentiation appears symmetric. There is no acute infarct or mass lesion. The calvarium appears intact. The visualized sinuses and middle ears and mastoid air cells show no significant mucosal thickening. CT/CT head for stroke IMPRESSION: No acute intracranial pathology. This critical result was discussed with Dr. Mccoy at 10:47 PM on 06/29/2020. It was ascertained that the content and urgency of the report was understood at the time of direct communication.
[2020-06-29] MEDS: metroNIDAZOLE/NS 500 MG/100 ML PIGGYBACK 100 MG IV ×3 (02:16→19:00)
[2020-06-29 08:36] LABS: Glucose, Whole Blood 114 mg/dL (60-115)
--- NOTE | 2020-06-29 08:51 | PM.PNGS ---
Subjective Subjective Date of Service: 06/29/20 <Maranda Guajardo PA-C - Last Filed: 06/29/20 08:58> 06/29/20 <Balwinder Way MD - Last Filed: 06/29/20 10:16> Interval history: Appears more lethargic this morning. Answering questions and commands but falls asleep quickly after. CT head and labs yesterday for AMS- CT and labs WNL. Did receive klonapin and gabapentin. Denies pain. Moved bowels yesterday. <Maranda Guajardo PA-C - Last Filed: 06/29/20 08:58> Physical Exam Vital Signs: Vital Signs: Last Vital Signs Temp 97.1 F 06/29/20 07:22 Pulse 70 06/29/20 07:22 Resp 20 06/29/20 07:22 BP 162/83 H 06/29/20 07:22 Pulse Ox 94 06/29/20 07:22 Body Mass Index 42.9 <Maranda Guajardo PA-C - Last Filed: 06/29/20 08:58> Const: General: lethargic and tired appearing <Maranda Guajardo PA-C - Last Filed: 06/29/20 08:58> Orientation/consciousness: lethargic <Maranda Guajardo PA-C - Last Filed: 06/29/20 08:58> Eyes: Sclerae: sclerae normal <Maranda Guajardo PA-C - Last Filed: 06/29/20 08:58> Resp: Effort & Inspection: normal respiratory effort <Maranda Guajardo PA-C - Last Filed: 06/29/20 08:58> Auscultation: rhonchi <Maranda Guajardo PA-C - Last Filed: 06/29/20 08:58> GI: Inspection: Yes normal to inspection and No distended <MIA Hall Last Filed: 06/29/20 08:58> Palpation (GI): Soft to palpation, nontender, no guarding, not rigid and No Rebound tenderness present <Maranda Guajardo PA-C - Last Filed: 06/29/20 08:58> Skin: General skin exam: rashes and/or lesions noted <Maranda Guajardo PA-C - Last Filed: 06/29/20 08:58> Neuro: Other: somnolent but arousable to verbal stimuli and follows commands <Maranda Guajardo PA-C - Last Filed: 06/29/20 08:58> Extrem: General: Yes no clubbing, cyanosis or edema and Yes no calf tenderness <Maranda Guajardo PA-C - Last Filed: 06/29/20 08:58> Progress Note: A&P Assessment and plan (1) Acute diverticulitis: Status: Acute <Maranda Guajardo PA-C - Last Filed: 06/29/20 08:58> (2) Fall: Problem details: Weakness <Maranda Guajardo PA-C - Last Filed: 06/29/20 08:58> Status: Acute <Maranda Guajardo PA-C - Last Filed: 06/29/20 08:58> Assessment and Plan: Being followed by PT who recommended STR. Patient more lethargic this morning. CT head and labs yesterday afternoon for AMS WNL. DId receive klonopin and gabapentin- sedative medications now on hold. Will reassess later, hospitalists following. If improved, stable for d/c to STR today. <Maranda Guajardo PA-C - Last Filed: 06/29/20 08:58> (3) Colonic diverticular abscess: Problem details: Too small for IR drainage, treated with IV antibiotics and bowel rest with improvement. <Maranda Guajardo PA-C - Last Filed: 06/29/20 08:58> Status: Acute <MIA Hall Last Filed: 06/29/20 08:58> Assessment and Plan: Improved. WBC remains normal. No abdominal symptoms and has return of GI function. <Maranda Guajardo PA-C - Last Filed: 06/29/20 08:58> Patient with increased somnolence beginning yesterday and continuing today with a normal CT of the head negative for stroke or bleed. Patient has return of GI function a positive bowel movement. Patient has not been eating a significant portion of his meal. Sedating medications have been held. Agree with the above assessment and plan. <Balwinder Way MD - Last Filed: 06/29/20 10:16> (4) Hypertension: Status: Acute <Maranda Guajardo PA-C - Last Filed: 06/29/20 08:58> Fall Risk Details Current Medications: Current Medications Generic Name Dose Route Start Last Admin Trade Name Freq PRN Reason Stop Dose Admin Acetaminophen 650 mg 06/19/20 08:33 Acetaminophen 325 Mg Tablet PO Q6H PRN Pain, Mild (Pain Scale 1-3) Albuterol Sulfate 2 puff 06/19/20 10:42 Albuterol Sulfate 90 Mcg 8 Gm Inhaler INHALE Q4H PRN wheezing Amlodipine Besylate 10 mg 06/26/20 09:00 06/28/20 08:54 Amlodipine Besylate 10 Mg Tablet PO 10 mg DAILY [facility] Administration Protocol Atorvastatin Calcium 80 mg 06/20/20 09:00 06/28/20 08:53 Atorvastatin Calcium 80 Mg Tablet PO 80 mg DAILY [facility] Administration Clonazepam 1 mg 06/19/20 21:00 06/28/20 08:53 Clonazepam 1 Mg Tablet PO 1 mg BID [facility] Administration Clopidogrel Bisulfate 75 mg 06/25/20 09:00 06/28/20 08:53 Clopidogrel Bisulfate 75 Mg Tablet PO 75 mg DAILY [facility] Administration Divalproex Sodium 250 mg 06/19/20 10:45 06/28/20 08:53 Divalproex Sodium Er 250 Mg Tab.Er.24h PO 250 mg DAILY [facility] Administration Docusate Sodium 100 mg 06/25/20 21:00 06/28/20 20:55 Docusate Sodium 100 Mg Capsule PO 100 mg BID [facility] Administration Duloxetine HCl 60 mg 06/19/20 10:45 06/28/20 08:53 Duloxetine Hcl 60 Mg Capsule.Dr PO 60 mg DAILY [facility] Administration Famotidine 20 mg 06/19/20 21:00 06/28/20 20:55 Famotidine 20 Mg Tablet PO 20 mg BID [facility] Administration Gabapentin 100 mg 06/19/20 21:00 06/28/20 08:53 Gabapentin 100 Mg Capsule PO 100 mg BID [facility] Administration Heparin Sodium (Porcine) 5,000 unit 06/21/20 11:45 06/28/20 23:11 Heparin Sodium,Porcine 5,000 Unit/Ml Vial SUBCUT 5,000 unit Q12H [facility] Administration Levofloxacin 500 mg in 100 mls @ 100 mls/hr 06/19/20 23:00 06/29/20 00:16 Levaquin IV Infused Q24H [facility] Infusion Metronidazole 500 mg in 100 mls @ 100 mls/hr 06/19/20 11:00 06/29/20 03:36 Flagyl IV Infused Q8H [facility] Infusion Insulin Human Lispro 0 unit 06/20/20 16:30 06/28/20 21:10 Insulin Lispro 100 Unit/Ml 3 Ml Vial SUBCUT Not Given QIDACHS [facility] Protocol Lamotrigine 200 mg 06/19/20 10:45 06/28/20 20:55 Lamotrigine 100 Mg Tablet PO 200 mg BID [facility] Administration Losartan Potassium 100 mg 06/20/20 09:00 06/28/20 08:54 Losartan Potassium 50 Mg Tablet PO 100 mg DAILY [facility] Administration Protocol Magnesium Hydroxide 30 ml 06/26/20 08:06 06/26/20 12:37 Milk Of Magnesia 30 Ml Oral.Susp PO 30 ml DAILY PRN Administration Constipation Metoprolol Tartrate 75 mg 06/19/20 11:00 06/28/20 20:55 Metoprolol Tartrate 50 Mg Tablet PO 75 mg BID [facility] Administration Protocol Pharmacy Consult 1 each 06/19/20 08:33 Consult Rx Perform Med Rec MISCELLANE ONCE PRN Consult order Risperidone 0.5 mg 06/19/20 10:42 Risperidone 0.5 Mg Tablet PO BID PRN Sleep Sodium Chloride 3 ml 06/19/20 08:33 06/28/20 23:17 0.9 % Sodium Chloride Flush 3 Ml Syringe IVFLUSH 3 ml QSHIFT [facility] Administration Tamsulosin HCl 0.4 mg 06/20/20 09:00 06/28/20 08:53 Tamsulosin Hcl 0.4 Mg Capsule PO 0.4 mg DAILY [facility] Administration <MIA Hall Last Filed: 06/29/20 08:58> Time Spent With Patient Time: Total time spent is greater than 50% in coordination of care (as documented) at patient's floor/unit and/or counseling patient: <MIA Hall Last Filed: 06/29/20 08:58> Time with patient: 15 - 24 minutes <MIA Hall Last Filed: 06/29/20 08:58>
[2020-06-29] MEDS: 0.9 % Sodium Chloride Flush 3 ML SYRINGE IVFLUSH ×3 (11:21→23:50)
[2020-06-29] MEDS: Heparin Sodium,Porcine 5,000 UNIT/ML VIAL 5000 UNIT SUBCUT ×2 (11:34→23:51)
[2020-06-29 12:01] LABS: Glucose, Whole Blood 153 mg/dL (60-115)
--- NOTE | 2020-06-29 13:45 | P.PNIM_ITS ---
Subjective Subjective Date of Service: 06/29/20 Interval History: seen and examined this AM slow to respond to answer, but otherwise doesnt appear to be in any distress baseline unclear Physical Exam Vital Signs: Vital Signs: Last Vital Signs Temp 97.8 F 06/29/20 11:16 Pulse 71 06/29/20 11:16 Resp 20 06/29/20 11:16 BP 156/94 H 06/29/20 11:16 Pulse Ox 91 L 06/29/20 11:16 Body Mass Index 42.9 Const: Other: General - no acute distress, appears comfortable Cardiovascular - regular rate and rhythm, S1-S2 Lungs - normal respiratory effort, clear to auscultation bilaterally, no wheezing Abdomen - soft, nontender, no rebound or guarding Extremities - no edema bilaterally Neuro - awake and alert, able to obey commands, speech appears normal Objective Data Current Medications Generic Name Dose Route Start Last Admin Trade Name Freq PRN Reason Stop Dose Admin Acetaminophen 650 mg 06/19/20 08:33 Acetaminophen 325 Mg Tablet PO Q6H PRN Pain, Mild (Pain Scale 1-3) Albuterol Sulfate 2 puff 06/19/20 10:42 Albuterol Sulfate 90 Mcg 8 Gm Inhaler INHALE Q4H PRN wheezing Amlodipine Besylate 10 mg 06/26/20 09:00 06/29/20 11:27 Amlodipine Besylate 10 Mg Tablet PO Not Given DAILY [facility] Protocol Atorvastatin Calcium 80 mg 06/20/20 09:00 06/29/20 11:29 Atorvastatin Calcium 80 Mg Tablet PO Not Given DAILY [facility] Clonazepam 1 mg 06/19/20 21:00 06/28/20 08:53 Clonazepam 1 Mg Tablet PO 1 mg BID [facility] Administration Clopidogrel Bisulfate 75 mg 06/25/20 09:00 06/29/20 11:29 Clopidogrel Bisulfate 75 Mg Tablet PO Not Given DAILY [facility] Divalproex Sodium 250 mg 06/19/20 10:45 06/29/20 11:29 Divalproex Sodium Er 250 Mg Tab.Er.24h PO Not Given DAILY [facility] Docusate Sodium 100 mg 06/25/20 21:00 06/29/20 11:29 Docusate Sodium 100 Mg Capsule PO Not Given BID [facility] Duloxetine HCl 60 mg 06/19/20 10:45 06/28/20 08:53 Duloxetine Hcl 60 Mg Capsule.Dr PO 60 mg DAILY [facility] Administration Famotidine 20 mg 06/19/20 21:00 06/29/20 11:30 Famotidine 20 Mg Tablet PO Not Given BID [facility] Gabapentin 100 mg 06/19/20 21:00 06/28/20 08:53 Gabapentin 100 Mg Capsule PO 100 mg BID [facility] Administration Heparin Sodium (Porcine) 5,000 unit 06/21/20 11:45 06/29/20 11:34 Heparin Sodium,Porcine 5,000 Unit/Ml Vial SUBCUT 5,000 unit Q12H [facility] Administration Levofloxacin 500 mg in 100 mls @ 100 mls/hr 06/19/20 23:00 06/29/20 00:16 Levaquin IV Infused Q24H [facility] Infusion Metronidazole 500 mg in 100 mls @ 100 mls/hr 06/19/20 11:00 06/29/20 13:34 Flagyl IV Infused Q8H [facility] Infusion Insulin Human Lispro 0 unit 06/20/20 16:30 06/29/20 11:20 Insulin Lispro 100 Unit/Ml 3 Ml Vial SUBCUT Not Given QIDACHS [facility] Protocol Lamotrigine 200 mg 06/19/20 10:45 06/29/20 11:30 Lamotrigine 100 Mg Tablet PO Not Given BID [facility] Losartan Potassium 100 mg 06/20/20 09:00 06/29/20 11:30 Losartan Potassium 50 Mg Tablet PO Not Given DAILY [facility] Protocol Magnesium Hydroxide 30 ml 06/26/20 08:06 06/26/20 12:37 Milk Of Magnesia 30 Ml Oral.Susp PO 30 ml DAILY PRN Administration Constipation Metoprolol Tartrate 75 mg 06/19/20 11:00 06/29/20 11:30 Metoprolol Tartrate 50 Mg Tablet PO Not Given BID [facility] Protocol Pharmacy Consult 1 each 06/19/20 08:33 Consult Rx Perform Med Rec MISCELLANE ONCE PRN Consult order Risperidone 0.5 mg 06/19/20 10:42 Risperidone 0.5 Mg Tablet PO BID PRN Sleep Sodium Chloride 3 ml 06/19/20 08:33 06/29/20 11:21 0.9 % Sodium Chloride Flush 3 Ml Syringe IVFLUSH 3 ml QSHIFT [facility] Administration Tamsulosin HCl 0.4 mg 06/20/20 09:00 06/29/20 11:31 Tamsulosin Hcl 0.4 Mg Capsule PO Not Given DAILY [facility] Labs CBC & Chem 7: 06/28/20 14:15 06/28/20 14:15 Microbiology Microbiology Results: Microbiology 06/19/20 01:35 Blood - Venous Blood Culture - Final No growth after 5 days. 06/19/20 01:35 Blood - Venous Blood Culture - Final No growth after 5 days. Assessment and Plan (1) Acute diverticulitis: Status: Acute Assessment and Plan: This is a 64 yo M admitted for diverticulitis with abscess. 1. Acute toxic/metabolic encephalopathy baseline unclear, but could be related to medications. he is on multiple sedative meds, klonipin / gabapentin are being held. unclear if hes on gabapentin at home continue to monitor and further testing if declines. 2. Diverticulitis with abscess iv antibiotics remainder of mgmt per gen surg 3. DM sliding scale 4. Mood on multiple meds, hold gabapentin / klonipin, continue others 5. ? cpap to clarify with family if continue other care will follow along
--- NOTE | 2020-06-29 15:20 | MHC.CLN ---
F/U POOR PO 25% DIET RX: 2000DM LOW RESIDUE-PT MAY BENEFIT FROM SUPPLEMENT TO INCREASE PO WILL START GLUCERNA BID TO INCREASE PO FOLLOWING
[2020-06-29 16:03] LABS: Ammonia 39 umol/L (13-55)
[2020-06-29 16:55] LABS: Glucose, Whole Blood 99 mg/dL (60-115)
[2020-06-29] MEDS: Docusate Sodium 100 MG CAPSULE PO (20:26)
[2020-06-29] MEDS: Famotidine 20 MG TABLET PO (20:26)
[2020-06-29] MEDS: Metoprolol Tartrate 50 MG TABLET 75 MG PO (20:28)
[2020-06-29] MEDS: lamoTRIgine 100 MG TABLET 200 MG PO (20:29)
[2020-06-29 21:11] LABS: Glucose, Whole Blood 115 mg/dL (60-115)
[2020-06-29] MEDS: levoFLOXacin/D5W 500 MG/100 ML PIGGYBACK 100 MG IV (22:18)
--- NOTE | 2020-06-29 22:43 | PC.NURSE ---
P-patient called dusty stating he thinks he is having stroke I-assessed patient ,BP 179/94 pulse 88,sat 98% on 3liters of oxygen,generalized weakness present no change from previous,patient also reporting numbness in bilateral arms,Dr. Crawford notified,stat CT done E-Patient back in his room,no change in mental status from previous,will monitor
--- NOTE | 2020-06-29 22:52 | PC.NURSE ---
E-patient seen by Dr. Crawford
--- NOTE | 2020-06-29 23:40 | PC.NURSE ---
P-patient unable to urinate this afternoon ,bladder scanned for 638 ml I-dr. Crawford notified of the above [id number] RN aware,patient will need a george
[2020-06-30] VITALS (13 sets, daily range): BP systolic 127–175; BP diastolic 64–101; PULSE 7–92; RESP 16–19; TEMP 36.4–37.1; O2SAT 95–100
[2020-06-30] MEDS: metroNIDAZOLE/NS 500 MG/100 ML PIGGYBACK 100 MG IV ×3 (03:18→19:49)
[2020-06-30] MEDS: hydrALAZINE HCl 20 MG/ML VIAL 10 MG IVPUSH (04:45)
--- NOTE | 2020-06-30 07:11 | PC.NURSE ---
message sent to on duty hospitalist concerning patients elevated blood pressure; first rounds 167/91-70-20-98.1 and 95-100% sats on o2 2L/M N/C, found at times misplaced. patient noted very sleepy but easily awakened, vague and confused that comes and goes. second rounds showed a BP of 197/100 rt arm, 189/94 left. new order received for 10mg IVP hydralazine and administered at 0445. BP monitored q 10 minutes times 1 hour with good effect; 175/87-79-18, 158/101-82, 143/75-80, 141/64-80, 150/75-76, 143/76-74. md updated and patient monitored frequently. Day RN given report.
[2020-06-30 07:42] LABS: Glucose, Whole Blood 108 mg/dL (60-115)
--- NOTE | 2020-06-30 08:01 | P.PNGS_ITS ---
Subjective Subjective Date of Service: 06/30/20 Interval history: More awake this morning, denies abdominal pain, does not feel very hungry. Physical Exam Vital Signs: Vital Signs: Last Vital Signs Temp 97.6 F 06/30/20 07:22 Pulse 92 06/30/20 07:22 Resp 19 06/30/20 07:22 BP 158/80 H 06/30/20 07:22 Pulse Ox 99 06/30/20 07:22 Body Mass Index 42.9 Const: Other: Awake, more alert today Eyes: Other: Normal extraocular motion, no scleral icterus Resp: Other: Breathing comfortably on room air, no labored breathing, no shortness of breath GI: Other: Soft, nondistended, normal bowel sounds, mild tenderness to deep palpation in the left lower quadrant. No palpable mass, no rebound, no guarding Skin: Other: Warm and dry, no rash Neuro: Other: More alert this morning before extremities. Strength is weakened but equal bilaterally Extrem: Other: No edema Progress Note: A&P Assessment and plan (1) Perforation of sigmoid colon due to diverticulitis: Status: Acute Assessment and Plan: Abdominal exam remains benign with no apparent peritoneal signs and only minimal tenderness to deep palpation. Will stop IV antibiotics. Mental status appears improved this morning after stopping gabapentin. In discussion with patient's , she reports that she does not give him the gabapentin at home. Will continue to monitor his mental status. Recheck laboratories in a.m.. Does not appear to be eating, will check calorie counts. Fall Risk Details Current Medications: Current Medications Generic Name Dose Route Start Last Admin Trade Name Freq PRN Reason Stop Dose Admin Acetaminophen 650 mg 06/19/20 08:33 Acetaminophen 325 Mg Tablet PO Q6H PRN Pain, Mild (Pain Scale 1-3) Albuterol Sulfate 2 puff 06/19/20 10:42 Albuterol Sulfate 90 Mcg 8 Gm Inhaler INHALE Q4H PRN wheezing Amlodipine Besylate 10 mg 06/26/20 09:00 06/29/20 11:27 Amlodipine Besylate 10 Mg Tablet PO Not Given DAILY [facility] Protocol Atorvastatin Calcium 80 mg 06/20/20 09:00 06/29/20 11:29 Atorvastatin Calcium 80 Mg Tablet PO Not Given DAILY [facility] Clonazepam 1 mg 06/19/20 21:00 06/28/20 08:53 Clonazepam 1 Mg Tablet PO 1 mg BID [facility] Administration Clopidogrel Bisulfate 75 mg 06/25/20 09:00 06/29/20 11:29 Clopidogrel Bisulfate 75 Mg Tablet PO Not Given DAILY [facility] Divalproex Sodium 250 mg 06/19/20 10:45 06/29/20 11:29 Divalproex Sodium Er 250 Mg Tab.Er.24h PO Not Given DAILY [facility] Docusate Sodium 100 mg 06/25/20 21:00 06/29/20 20:26 Docusate Sodium 100 Mg Capsule PO 100 mg BID [facility] Administration Duloxetine HCl 60 mg 06/19/20 10:45 06/28/20 08:53 Duloxetine Hcl 60 Mg Capsule.Dr PO 60 mg DAILY [facility] Administration Famotidine 20 mg 06/19/20 21:00 06/29/20 20:26 Famotidine 20 Mg Tablet PO 20 mg BID [facility] Administration Gabapentin 100 mg 06/19/20 21:00 06/28/20 08:53 Gabapentin 100 Mg Capsule PO 100 mg BID [facility] Administration Heparin Sodium (Porcine) 5,000 unit 06/21/20 11:45 06/29/20 23:51 Heparin Sodium,Porcine 5,000 Unit/Ml Vial SUBCUT 5,000 unit Q12H [facility] Administration Levofloxacin 500 mg in 100 mls @ 100 mls/hr 06/19/20 23:00 06/29/20 23:30 Levaquin IV Infused Q24H [facility] Infusion Metronidazole 500 mg in 100 mls @ 100 mls/hr 06/19/20 11:00 06/30/20 04:23 Flagyl IV Infused Q8H [facility] Infusion Insulin Human Lispro 0 unit 06/20/20 16:30 06/29/20 20:27 Insulin Lispro 100 Unit/Ml 3 Ml Vial SUBCUT Not Given QIDACHS [facility] Protocol Lamotrigine 200 mg 06/19/20 10:45 06/29/20 20:29 Lamotrigine 100 Mg Tablet PO 200 mg BID [facility] Administration Losartan Potassium 100 mg 06/20/20 09:00 06/29/20 11:30 Losartan Potassium 50 Mg Tablet PO Not Given DAILY [facility] Protocol Magnesium Hydroxide 30 ml 06/26/20 08:06 06/26/20 12:37 Milk Of Magnesia 30 Ml Oral.Susp PO 30 ml DAILY [facility] Administration Constipation Metoprolol Tartrate 75 mg 06/19/20 11:00 06/29/20 20:28 Metoprolol Tartrate 50 Mg Tablet PO 75 mg BID [facility] Administration Protocol Pharmacy Consult 1 each 06/19/20 08:33 Consult Rx Perform Med Rec MISCELLANE ONCE PRN Consult order Risperidone 0.5 mg 06/19/20 10:42 Risperidone 0.5 Mg Tablet PO BID PRN Sleep Sodium Chloride 3 ml 06/19/20 08:33 06/29/20 23:50 0.9 % Sodium Chloride Flush 3 Ml Syringe IVFLUSH 3 ml QSHIFT [facility] Administration Tamsulosin HCl 0.4 mg 06/20/20 09:00 06/29/20 11:31 Tamsulosin Hcl 0.4 Mg Capsule PO Not Given DAILY [facility] Time Spent With Patient Time: Total time spent is greater than 50% in coordination of care (as documented) at patient's floor/unit and/or counseling patient: Time with patient: 15 - 24 minutes
[2020-06-30] MEDS: Metoprolol Tartrate 50 MG TABLET 75 MG PO ×2 (08:26→20:58)
[2020-06-30] MEDS: Divalproex Sodium ER 250 MG TAB.ER.24H PO (08:28)
[2020-06-30] MEDS: Atorvastatin Calcium 80 MG TABLET PO (08:28)
[2020-06-30] MEDS: Docusate Sodium 100 MG CAPSULE PO ×2 (08:28→21:00)
[2020-06-30] MEDS: Famotidine 20 MG TABLET PO ×2 (08:29→21:00)
[2020-06-30] MEDS: Clopidogrel Bisulfate 75 MG TABLET PO (08:30)
[2020-06-30] MEDS: Losartan Potassium 50 MG TABLET 100 MG PO (08:30)
[2020-06-30] MEDS: amLODIPine Besylate 10 MG TABLET PO (08:31)
[2020-06-30] MEDS: lamoTRIgine 100 MG TABLET 200 MG PO ×2 (08:31→20:59)
[2020-06-30] MEDS: Tamsulosin HCL 0.4 MG CAPSULE PO (08:31)
[2020-06-30] MEDS: 0.9 % Sodium Chloride Flush 3 ML SYRINGE IVFLUSH ×3 (08:35→23:50)
--- NOTE | 2020-06-30 08:57 | MHC.CM.PN ---
dc plan is for patient to go to [facility] [place]. he has been accepted and will require ins. auth. prior to transfer. pt's is aware of this dc plan. cm to cont. to follow.
--- NOTE | 2020-06-30 09:48 | P.PNIM_ITS ---
Subjective Subjective Date of Service: 06/30/20 Interval History: seen and examined this AM improving, more alert reports poor appetite Physical Exam Vital Signs: Vital Signs: Last Vital Signs Temp 97.6 F 06/30/20 07:22 Pulse 92 06/30/20 08:26 Resp 19 06/30/20 07:22 BP 158/80 H 06/30/20 08:26 Pulse Ox 99 06/30/20 07:22 Body Mass Index 42.9 Const: Other: General - no acute distress, appears comfortable Cardiovascular - regular rate and rhythm, S1-S2 Lungs - normal respiratory effort, clear to auscultation bilaterally, no wheezing Abdomen - soft, nontender, no rebound or guarding Extremities - no edema bilaterally Neuro - awake and alert, able to obey commands, speech appears normal Objective Data Current Medications Generic Name Dose Route Start Last Admin Trade Name Freq PRN Reason Stop Dose Admin Acetaminophen 650 mg 06/19/20 08:33 Acetaminophen 325 Mg Tablet PO Q6H PRN Pain, Mild (Pain Scale 1-3) Albuterol Sulfate 2 puff 06/19/20 10:42 Albuterol Sulfate 90 Mcg 8 Gm Inhaler INHALE Q4H PRN wheezing Amlodipine Besylate 10 mg 06/26/20 09:00 06/30/20 08:31 Amlodipine Besylate 10 Mg Tablet PO 10 mg DAILY [facility] Administration Protocol Atorvastatin Calcium 80 mg 06/20/20 09:00 06/30/20 08:28 Atorvastatin Calcium 80 Mg Tablet PO 80 mg DAILY [facility] Administration Clonazepam 1 mg 06/19/20 21:00 06/28/20 08:53 Clonazepam 1 Mg Tablet PO 1 mg BID [facility] Administration Clopidogrel Bisulfate 75 mg 06/25/20 09:00 06/30/20 08:30 Clopidogrel Bisulfate 75 Mg Tablet PO 75 mg DAILY [facility] Administration Divalproex Sodium 250 mg 06/19/20 10:45 06/30/20 08:28 Divalproex Sodium Er 250 Mg Tab.Er.24h PO 250 mg DAILY [facility] Administration Docusate Sodium 100 mg 06/25/20 21:00 06/30/20 08:28 Docusate Sodium 100 Mg Capsule PO 100 mg BID [facility] Administration Duloxetine HCl 60 mg 06/19/20 10:45 06/28/20 08:53 Duloxetine Hcl 60 Mg Capsule.Dr PO 60 mg DAILY [facility] Administration Famotidine 20 mg 06/19/20 21:00 06/30/20 08:29 Famotidine 20 Mg Tablet PO 20 mg BID [facility] Administration Gabapentin 100 mg 06/19/20 21:00 06/28/20 08:53 Gabapentin 100 Mg Capsule PO 100 mg BID [facility] Administration Heparin Sodium (Porcine) 5,000 unit 06/21/20 11:45 06/29/20 23:51 Heparin Sodium,Porcine 5,000 Unit/Ml Vial SUBCUT 5,000 unit Q12H [facility] Administration Levofloxacin 500 mg in 100 mls @ 100 mls/hr 06/19/20 23:00 06/29/20 23:30 Levaquin IV Infused Q24H [facility] Infusion Metronidazole 500 mg in 100 mls @ 100 mls/hr 06/19/20 11:00 06/30/20 04:23 Flagyl IV Infused Q8H [facility] Infusion Insulin Human Lispro 0 unit 06/20/20 16:30 06/30/20 08:38 Insulin Lispro 100 Unit/Ml 3 Ml Vial SUBCUT Not Given QIDACHS [facility] Protocol Lamotrigine 200 mg 06/19/20 10:45 06/30/20 08:31 Lamotrigine 100 Mg Tablet PO 200 mg BID [facility] Administration Losartan Potassium 100 mg 06/20/20 09:00 06/30/20 08:30 Losartan Potassium 50 Mg Tablet PO 100 mg DAILY [facility] Administration Protocol Magnesium Hydroxide 30 ml 06/26/20 08:06 06/26/20 12:37 Milk Of Magnesia 30 Ml Oral.Susp PO 30 ml DAILY [facility]N Administration Constipation Metoprolol Tartrate 75 mg 06/19/20 11:00 06/30/20 08:26 Metoprolol Tartrate 50 Mg Tablet PO 75 mg BID [facility] Administration Protocol Pharmacy Consult 1 each 06/19/20 08:33 Consult Rx Perform Med Rec MISCELLANE ONCE PRN Consult order Risperidone 0.5 mg 06/19/20 10:42 Risperidone 0.5 Mg Tablet PO BID PRN Sleep Sodium Chloride 3 ml 06/19/20 08:33 06/30/20 08:35 0.9 % Sodium Chloride Flush 3 Ml Syringe IVFLUSH 3 ml QSHIFT [facility] Administration Tamsulosin HCl 0.4 mg 06/20/20 09:00 06/30/20 08:31 Tamsulosin Hcl 0.4 Mg Capsule PO 0.4 mg DAILY [facility] Administration Labs CBC & Chem 7: 06/28/20 14:15 06/28/20 14:15 Microbiology Microbiology Results: Microbiology 06/19/20 01:35 Blood - Venous Blood Culture - Final No growth after 5 days. 06/19/20 01:35 Blood - Venous Blood Culture - Final No growth after 5 days. Assessment and Plan (1) Fall: Status: Acute (2) Dysuria: Status: Acute (3) Colonic diverticular abscess: Status: Acute (4) Hypertension: Status: Acute (5) Acute diverticulitis: Status: Acute Assessment and Plan: This is a 64 yo M admitted for diverticulitis with abscess. 1. Acute toxic/metabolic encephalopathy improved likely secondary to meds, improving now that gabapentin discontinued 2. Diverticulitis with abscess mgmt per gen surg 3. DM sliding scale 4. Mood on multiple meds, hold gabapentin / klonipin, continue others continue other care will f/u as needed
[2020-06-30 11:29] LABS: Glucose, Whole Blood 98 mg/dL (60-115)
--- NOTE | 2020-06-30 12:10 | MHC.CLN ---
RE: CONSULT CALORIE COUNT STARTED NOTED PT PO ITNAKE 75% AT BREAKFAST TODAY GLUCERNA ADDED 06/29 TO INCREASE KCALS FOLLOWING
[2020-06-30] MEDS: Heparin Sodium,Porcine 5,000 UNIT/ML VIAL 5000 UNIT SUBCUT ×2 (13:12→23:50)
[2020-06-30 17:43] LABS: Glucose, Whole Blood 117 mg/dL (60-115)
[2020-06-30] MEDS: levoFLOXacin/D5W 500 MG/100 ML PIGGYBACK 100 MG IV (22:54)
[2020-07-01] VITALS (7 sets, daily range): BP systolic 108–188; BP diastolic 60–93; PULSE 67–94; RESP 16–19; TEMP 36.2–37.6; O2SAT 94–97
[2020-07-01 00:07] LABS: Glucose, Whole Blood 124 mg/dL (60-115)
[2020-07-01] MEDS: metroNIDAZOLE/NS 500 MG/100 ML PIGGYBACK 100 MG IV (03:00)
--- NOTE | 2020-07-01 07:43 | PM.PNGS ---
Subjective Subjective Date of Service: 07/01/20 Interval history: Sleepy but easily arousable; denies abdominal pain. He is unsure if he ate yesterday and no calorie counts are recorded on his board. Required a Byrd catheter insertion yesterday due to urinary retention. Physical Exam Vital Signs: Vital Signs: Last Vital Signs Temp 98.2 F 07/01/20 04:00 Pulse 93 07/01/20 04:00 Resp 18 07/01/20 04:00 BP 154/93 H 07/01/20 04:00 Pulse Ox 97 07/01/20 04:00 Body Mass Index 42.9 Const: General: cooperative, comfortable and no acute distress Neck: Neck: Yes normal visual inspection Resp: Other: Breathing comfortably on room air, no respiratory distress GI: Other: Soft, nondistended, nontender to deep palpation, no rebound, no guarding Skin: Other: Warm, dry, no rash Progress Note: A&P Assessment and plan (1) Perforation of sigmoid colon due to diverticulitis: Status: Acute Assessment and Plan: Patient abdomen is benign with no peritoneal signs. Laboratories today revealed normal WBC. Antibiotics are now stopped. Calorie counts requested, 75% of meal taken yesterday. Supplements added. Patient remains weak, not sure if he is ambulating. Plan is for short-term rehab once he is tolerating his diet. Mental status seems improved. (2) 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 hyperplasia: Status: Acute Assessment and Plan: Patient with history of BPH, urinary retention. Byrd catheter inserted yesterday. Urology consultation requested. Fall Risk Details Current Medications: Current Medications Generic Name Dose Route Start Last Admin Trade Name Alberto PRN Reason Stop Dose Admin Acetaminophen 650 mg 06/19/20 08:33 Acetaminophen 325 Mg Tablet PO Q6H PRN Pain, Mild (Pain Scale 1-3) Albuterol Sulfate 2 puff 06/19/20 10:42 Albuterol Sulfate 90 Mcg 8 Gm Inhaler INHALE Q4H PRN wheezing Amlodipine Besylate 10 mg 06/26/20 09:00 06/30/20 08:31 Amlodipine Besylate 10 Mg Tablet PO 10 mg DAILY AARON Administration Protocol Atorvastatin Calcium 80 mg 06/20/20 09:00 06/30/20 08:28 Atorvastatin Calcium 80 Mg Tablet PO 80 mg DAILY AARON Administration Clonazepam 1 mg 06/19/20 21:00 06/28/20 08:53 Clonazepam 1 Mg Tablet PO 1 mg BID AARON Administration Clopidogrel Bisulfate 75 mg 06/25/20 09:00 06/30/20 08:30 Clopidogrel Bisulfate 75 Mg Tablet PO 75 mg DAILY AARON Administration Divalproex Sodium 250 mg 06/19/20 10:45 06/30/20 08:28 Divalproex Sodium Er 250 Mg Tab.Er.24h PO 250 mg DAILY AARON Administration Docusate Sodium 100 mg 06/25/20 21:00 06/30/20 21:00 Docusate Sodium 100 Mg Capsule PO 100 mg BID AARON Administration Duloxetine HCl 60 mg 06/19/20 10:45 06/28/20 08:53 Duloxetine Hcl 60 Mg Capsule.Dr PO 60 mg DAILY AARON Administration Famotidine 20 mg 06/19/20 21:00 06/30/20 21:00 Famotidine 20 Mg Tablet PO 20 mg BID AARON Administration Gabapentin 100 mg 06/19/20 21:00 06/28/20 08:53 Gabapentin 100 Mg Capsule PO 100 mg BID AARON Administration Heparin Sodium (Porcine) 5,000 unit 06/21/20 11:45 06/30/20 23:50 Heparin Sodium,Porcine 5,000 Unit/Ml Vial SUBCUT 5,000 unit Q12H AARON Administration Levofloxacin 500 mg in 100 mls @ 100 mls/hr 06/19/20 23:00 06/30/20 23:54 Levaquin IV Infused Q24H AARON Infusion Metronidazole 500 mg in 100 mls @ 100 mls/hr 06/19/20 11:00 07/01/20 04:00 Flagyl IV Infused Q8H AARON Infusion Insulin Human Lispro 0 unit 06/20/20 16:30 06/30/20 20:58 Insulin Lispro 100 Unit/Ml 3 Ml Vial SUBCUT Not Given QIDACHS [facility] Protocol Lamotrigine 200 mg 06/19/20 10:45 06/30/20 20:59 Lamotrigine 100 Mg Tablet PO 200 mg BID AARON Administration Losartan Potassium 100 mg 06/20/20 09:00 06/30/20 08:30 Losartan Potassium 50 Mg Tablet PO 100 mg DAILY AARON Administration Protocol Magnesium Hydroxide 30 ml 06/26/20 08:06 06/26/20 12:37 Milk Of Magnesia 30 Ml Oral.Susp PO 30 ml DAILY PRN Administration Constipation Metoprolol Tartrate 75 mg 06/19/20 11:00 06/30/20 20:58 Metoprolol Tartrate 50 Mg Tablet PO 75 mg BID AARON Administration Protocol Pharmacy Consult 1 each 06/19/20 08:33 Consult Rx Perform Med Rec MISCELLANE ONCE PRN Consult order Risperidone 0.5 mg 06/19/20 10:42 Risperidone 0.5 Mg Tablet PO BID PRN Sleep Sodium Chloride 3 ml 06/19/20 08:33 06/30/20 23:50 0.9 % Sodium Chloride Flush 3 Ml Syringe IVFLUSH 3 ml QSHIFT AARON Administration Tamsulosin HCl 0.4 mg 06/20/20 09:00 06/30/20 08:31 Tamsulosin Hcl 0.4 Mg Capsule PO 0.4 mg DAILY AARON Administration Time Spent With Patient Time: Total time spent is greater than 50% in coordination of care (as documented) at patient's floor/unit and/or counseling patient: Time with patient: 15 - 24 minutes
[2020-07-01] MEDS: 0.9 % Sodium Chloride Flush 3 ML SYRINGE IVFLUSH ×3 (08:00→23:31)
[2020-07-01 08:20] LABS: Glucose, Whole Blood 101 mg/dL (60-115)
[2020-07-01] MEDS: amLODIPine Besylate 10 MG TABLET PO (08:30)
[2020-07-01] MEDS: lamoTRIgine 100 MG TABLET 200 MG PO ×2 (08:31→22:31)
[2020-07-01] MEDS: Atorvastatin Calcium 80 MG TABLET PO (08:31)
[2020-07-01] MEDS: Famotidine 20 MG TABLET PO ×2 (08:31→22:30)
[2020-07-01] MEDS: Tamsulosin HCL 0.4 MG CAPSULE PO (08:31)
[2020-07-01] MEDS: clonazePAM 1 MG TABLET PO ×2 (08:31→22:31)
[2020-07-01] MEDS: DULoxetine HCl 60 MG CAPSULE.DR PO (08:31)
[2020-07-01] MEDS: Gabapentin 100 MG CAPSULE PO ×2 (08:31→22:31)
[2020-07-01] MEDS: Docusate Sodium 100 MG CAPSULE PO ×2 (08:31→22:31)
[2020-07-01] MEDS: Divalproex Sodium ER 250 MG TAB.ER.24H PO (08:31)
[2020-07-01] MEDS: Clopidogrel Bisulfate 75 MG TABLET PO (08:31)
[2020-07-01] MEDS: Losartan Potassium 50 MG TABLET 100 MG PO (08:31)
[2020-07-01] MEDS: Metoprolol Tartrate 50 MG TABLET 75 MG PO ×2 (08:32→22:31)
[2020-07-01 09:00] LABS: MANUAL DIFF FLAG NO
[2020-07-01 09:37] LABS: Anion Gap 16 (12-20); Blood Urea Nitrogen 10 mg/dL (9-16); Calcium 8.2 mg/dL (8.4-10.2); Carbon Dioxide 24 mmol/L (22-29); Chloride 104 mmol/L (96-108); Creatinine Clr Calc Pharmacy 134.2; Estimated Glomerular Filt Rate > 60; Glucose Random 91 mg/dL (60-115); Potassium 3.6 mmol/l (3.3-5.1); Sodium 140 mmol/L (135-145)
[2020-07-01 10:42] LABS: Basophils Percent Auto 0.1 % (0-2); Eosinophils Percent Auto 0.1 % (0-4); Hematocrit 39.2 % (42-52); Hemoglobin 12.9 g/dl (14.0-18.0); Imm Gran Abs Auto 0.07 X10*3/uL (0.00-0.03); Imm Gran Pct Auto 0.5 % (0.0-0.4); Lymphocytes Absolute Auto 2.6 X10*3/uL (1.2-4.9); Lymphocytes Percent Auto 18.9 % (20-40); Mean Corpuscular HGB Conc 32.9 g/dl (31.0-36.0); Mean Corpuscular Hemoglobin 29.3 pg (27.0-33.0); Mean Corpuscular Volume 89.1 fL (80-98); Mean Platelet Volume 10.1 fL (9.4-12.4); Monocytes Absolute Auto 1.5 X10*3/uL (0.1-1.2); Neutrophils Absolute Auto 9.4 X10*3/uL (2.0-8.3); Neutrophils Percent Auto 69.4 % (45-73); Platelet Count 264 X10*3/uL (160-400); Red Cell Distribution Width 12.9 % (11.0-16.0); White Blood Count 13.6 X10*3/uL (4.8-10.8)
[2020-07-01 11:35] LABS: Glucose, Whole Blood 117 mg/dL (60-115)
[2020-07-01] MEDS: Heparin Sodium,Porcine 5,000 UNIT/ML VIAL 5000 UNIT SUBCUT ×2 (11:55→22:34)
--- NOTE | 2020-07-01 15:34 | MHC.CLN ---
F/U NSG RECORDED 25/<25% FOR MEAL INTAKES TODAY NO CALORIE COUNTS RECORDED DISCUSSED WITH KITCHEN STAFF AND NSG-STRICT PO INTAKE PT WITH ORDER TO RECEIVE GLUCERNA TO INCREASE KCALS PROVIDES 474KCALS, 20G PROTEIN PT CAN NOT RECALL IF HE ATE FOLLOWING
[2020-07-01 16:46] LABS: Glucose, Whole Blood 102 mg/dL (60-115)
--- NOTE | 2020-07-01 17:25 | PC.NURSE ---
refused lunch and dinner tonight. sleeping in naps
[2020-07-01 20:54] LABS: Glucose, Whole Blood 120 mg/dL (60-115)
[2020-07-02] VITALS (8 sets, daily range): BP systolic 141–177; BP diastolic 71–95; PULSE 65–89; RESP 16–19; TEMP 36.1–36.9; O2SAT 93–97; BMI 28.6
[2020-07-02 07:32] LABS: Glucose, Whole Blood 110 mg/dL (60-115)
[2020-07-02] MEDS: Tamsulosin HCL 0.4 MG CAPSULE PO (09:25)
[2020-07-02] MEDS: DULoxetine HCl 60 MG CAPSULE.DR PO (09:25)
[2020-07-02] MEDS: Famotidine 20 MG TABLET PO ×2 (09:25→21:24)
[2020-07-02] MEDS: Atorvastatin Calcium 80 MG TABLET PO (09:25)
[2020-07-02] MEDS: Losartan Potassium 50 MG TABLET 100 MG PO (09:25)
[2020-07-02] MEDS: lamoTRIgine 100 MG TABLET 200 MG PO ×2 (09:26→21:24)
[2020-07-02] MEDS: Clopidogrel Bisulfate 75 MG TABLET PO (09:26)
[2020-07-02] MEDS: clonazePAM 1 MG TABLET PO ×2 (09:26→21:24)
[2020-07-02] MEDS: Gabapentin 100 MG CAPSULE PO ×2 (09:26→21:24)
[2020-07-02] MEDS: Docusate Sodium 100 MG CAPSULE PO ×2 (09:26→21:24)
[2020-07-02] MEDS: Divalproex Sodium ER 250 MG TAB.ER.24H PO (09:26)
[2020-07-02] MEDS: amLODIPine Besylate 10 MG TABLET PO (09:26)
[2020-07-02] MEDS: Metoprolol Tartrate 50 MG TABLET 75 MG PO ×2 (09:27→21:24)
[2020-07-02] MEDS: 0.9 % Sodium Chloride Flush 3 ML SYRINGE IVFLUSH ×2 (09:30→16:39)
[2020-07-02 11:35] LABS: Glucose, Whole Blood 109 mg/dL (60-115)
[2020-07-02] MEDS: Heparin Sodium,Porcine 5,000 UNIT/ML VIAL 5000 UNIT SUBCUT ×2 (12:23→21:27)
--- NOTE | 2020-07-02 13:52 | P.PNGS_ITS ---
Subjective Subjective Date of Service: 07/02/20 Interval history: Awake, alert, answering questions appropriately. Denies abdominal pain. Reports eating some of his diet but not all. Was able to walk to the commode. Remains weak. Physical Exam Vital Signs: Vital Signs: Last Vital Signs Temp 96.9 F 07/02/20 11:23 Pulse 66 07/02/20 11:23 Resp 18 07/02/20 11:23 BP 166/88 H 07/02/20 11:23 Pulse Ox 93 07/02/20 11:23 Body Mass Index 42.9 Const: General: cooperative, comfortable and no acute distress Orientation/consciousness: oriented to person and oriented to place Eyes: Other: Normal sclera, normal extraocular muscles Resp: Other: Breathing comfortably on room air, no shortness of breath GI: Other: Soft, nondistended, nontender, no rebound, no guarding, no rigidity. Skin: Other: Warm, dry, no rash Neuro: General: oriented to person, oriented to place and moves all extremities Extrem: General: Yes full ROM Progress Note: A&P Assessment and plan (1) 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 hyperplasia: Status: Acute Assessment and Plan: Byrd catheter placed on 06/29/2020. Will remove Byrd catheter and check to see if he is able to void spontaneously. If he continues to have problems, urology consultation will be requested once again. (2) Perforation of sigmoid colon due to diverticulitis: Status: Acute Assessment and Plan: Patient is currently asymptomatic with no abdominal tenderness to deep palpation. No evidence of ongoing abscess by clinical examination. Patient is tolerating regular diet and does well with the supplements. He is passing his bowels intermittently. Continue stool softeners and p.r.n. milk of magnesia. Possible discharge to short-term rehab tomorrow if able to void spontaneously. Fall Risk Details Current Medications: Current Medications Generic Name Dose Route Start Last Admin Trade Name Freq PRN Reason Stop Dose Admin Acetaminophen 650 mg 06/19/20 08:33 Acetaminophen 325 Mg Tablet PO Q6H PRN Pain, Mild (Pain Scale 1-3) Albuterol Sulfate 2 puff 06/19/20 10:42 Albuterol Sulfate 90 Mcg 8 Gm Inhaler INHALE Q4H PRN wheezing Amlodipine Besylate 10 mg 06/26/20 09:00 07/02/20 09:26 Amlodipine Besylate 10 Mg Tablet PO 10 mg DAILY AARON Administration Protocol Atorvastatin Calcium 80 mg 06/20/20 09:00 07/02/20 09:25 Atorvastatin Calcium 80 Mg Tablet PO 80 mg DAILY AARON Administration Clonazepam 1 mg 06/19/20 21:00 07/02/20 09:26 Clonazepam 1 Mg Tablet PO 1 mg BID AARON Administration Clopidogrel Bisulfate 75 mg 06/25/20 09:00 07/02/20 09:26 Clopidogrel Bisulfate 75 Mg Tablet PO 75 mg DAILY AARON Administration Divalproex Sodium 250 mg 06/19/20 10:45 07/02/20 09:26 Divalproex Sodium Er 250 Mg Tab.Er.24h PO 250 mg DAILY AARON Administration Docusate Sodium 100 mg 06/25/20 21:00 07/02/20 09:26 Docusate Sodium 100 Mg Capsule PO 100 mg BID AARON Administration Duloxetine HCl 60 mg 06/19/20 10:45 07/02/20 09:25 Duloxetine Hcl 60 Mg Capsule.Dr PO 60 mg DAILY AARON Administration Famotidine 20 mg 06/19/20 21:00 07/02/20 09:25 Famotidine 20 Mg Tablet PO 20 mg BID AARON Administration Gabapentin 100 mg 06/19/20 21:00 07/02/20 09:26 Gabapentin 100 Mg Capsule PO 100 mg BID AARON Administration Heparin Sodium (Porcine) 5,000 unit 06/21/20 11:45 07/02/20 12:23 Heparin Sodium,Porcine 5,000 Unit/Ml Vial SUBCUT 5,000 unit Q12H AARON Administration Insulin Human Lispro 0 unit 06/20/20 16:30 07/02/20 11:47 Insulin Lispro 100 Unit/Ml 3 Ml Vial SUBCUT Not Given QIDACHS [facility] Protocol Lamotrigine 200 mg 06/19/20 10:45 07/02/20 09:26 Lamotrigine 100 Mg Tablet PO 200 mg BID AARON Administration Losartan Potassium 100 mg 06/20/20 09:00 07/02/20 09:25 Losartan Potassium 50 Mg Tablet PO 100 mg DAILY AARON Administration Protocol Magnesium Hydroxide 30 ml 06/26/20 08:06 06/26/20 12:37 Milk Of Magnesia 30 Ml Oral.Susp PO 30 ml DAILY PRN Administration Constipation Metoprolol Tartrate 75 mg 06/19/20 11:00 07/02/20 09:27 Metoprolol Tartrate 50 Mg Tablet PO 75 mg BID AARON Administration Protocol Pharmacy Consult 1 each 06/19/20 08:33 Consult Rx Perform Med Rec MISCELLANE ONCE PRN Consult order Risperidone 0.5 mg 06/19/20 10:42 Risperidone 0.5 Mg Tablet PO BID PRN Sleep Sodium Chloride 3 ml 06/19/20 08:33 07/02/20 09:30 0.9 % Sodium Chloride Flush 3 Ml Syringe IVFLUSH 3 ml QSHIFT AARON Administration Tamsulosin HCl 0.4 mg 06/20/20 09:00 07/02/20 09:25 Tamsulosin Hcl 0.4 Mg Capsule PO 0.4 mg DAILY AARON Administration Time Spent With Patient Time: Total time spent is greater than 50% in coordination of care (as documented) at patient's floor/unit and/or counseling patient: Time with patient: 15 - 24 minutes
--- NOTE | 2020-07-02 14:02 | MHC.CLN ---
CALORIE COUNT FOOD RECORDS FOR BREAKFAST 07/02 332KCALS MOST CALORIES COMING FROM GLUCERNA SUPPLEMENT LUNCH 07/02 REVEAL 170 CALORIES WILL CHANGE SUPPLEMENT TO ENSURE TO PROVIDE 1050KCALS, 60G PROTEIN CONTINUE CALORIE COUNT AND MONITOR WEIGHTS CLOSELY
--- NOTE | 2020-07-02 14:59 | MHC.CM.PN ---
NO PLAN FOR DC. UPDATES SENT IN [facility]. CASE MANAGEMENT FOLLOWING.
[2020-07-02 16:54] LABS: Glucose, Whole Blood 114 mg/dL (60-115)
--- NOTE | 2020-07-02 19:03 | PC.NURSE ---
PATIENT SEEN BY DR. NUGENT. STATES AGUERO CATHETER CAN BE REMOVED TOMORROW 07/03/20 MORNING.
[2020-07-02 21:12] LABS: Glucose, Whole Blood 114 mg/dL (60-115)
[2020-07-03] VITALS: BP 160/83; PULSE 86; RESP 19; TEMP 36.7; O2SAT 96
[2020-07-03] MEDS: 0.9 % Sodium Chloride Flush 3 ML SYRINGE IVFLUSH ×2 (00:27→10:31)
[2020-07-03 04:00] VITALS: BP 149/76; PULSE 74; RESP 19; TEMP 36.7; O2SAT 97
[2020-07-03 07:12] LABS: Glucose, Whole Blood 102 mg/dL (60-115)
[2020-07-03 07:58] VITALS: BP 172/89; PULSE 75; RESP 18; TEMP 36.7; O2SAT 100
--- NOTE | 2020-07-03 08:02 | PM.PNGS ---
Subjective Subjective Date of Service: 07/03/20 <Maranda Guajardo PA-C - Last Filed: 07/03/20 08:08> 07/03/20 <Adam Foster MD - Last Filed: 07/03/20 14:23> Interval history: Rochelle was reinserted last night. Eating more per calorie counts and patient. Denies abdominal pain. Says he wants to go home today. <Maranda Guajardo PA-C - Last Filed: 07/03/20 08:08> Physical Exam Vital Signs: Vital Signs: Last Vital Signs Temp 98.1 F 07/03/20 07:58 Pulse 75 07/03/20 07:58 Resp 18 07/03/20 07:58 BP 172/89 H 07/03/20 07:58 Pulse Ox 100 07/03/20 07:58 Body Mass Index 28.6 <Maranda Guajardo PA-C - Last Filed: 07/03/20 08:08> Const: General: comfortable, no acute distress and awake <Maranda Guajardo PA-C - Last Filed: 07/03/20 08:08> Orientation/consciousness: oriented to person <Maranda Guajardo PA-C - Last Filed: 07/03/20 08:08> Eyes: Sclerae: sclerae normal <Maranda Guajardo PA-C - Last Filed: 07/03/20 08:08> Resp: Effort & Inspection: normal respiratory effort <Maranda Guajardo PA-C - Last Filed: 07/03/20 08:08> GI: Inspection: No distended <Maranda Guajardo PA-C - Last Filed: 07/03/20 08:08> Palpation (GI): Soft to palpation, nontender, no guarding and not rigid <MIA Hall Last Filed: 07/03/20 08:08> Skin: General skin exam: no rashes or lesions noted <MIA Hall Last Filed: 07/03/20 08:08> Neuro: General: oriented to person <MIA Hall Last Filed: 07/03/20 08:08> Extrem: General: Yes no clubbing, cyanosis or edema <Maranda Guajardo PA-C - Last Filed: 07/03/20 08:08> Progress Note: A&P Assessment and plan (1) 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 hyperplasia: Status: Acute <Maranda Guajardo PA-C - Last Filed: 07/03/20 08:08> Assessment and Plan: Required george reinsertion last night. Will reconsult urology. ?D/c to [facility] today with george in place with outpatient follow up. <Maranda Guajardo PA-C - Last Filed: 07/03/20 08:08> (2) Colonic diverticular abscess: Status: Acute <Maranda Guajardo PA-C - Last Filed: 07/03/20 08:08> Assessment and Plan: Patient is currently asymptomatic with no abdominal tenderness to deep palpation. No evidence of ongoing abscess by clinical examination. Patient is tolerating regular diet and does well with the supplements- PO intake improving per calorie counts. He is passing his bowels intermittently. Continue stool softeners and p.r.n. milk of magnesia. Possible discharge to short-term rehab today pending urology consult. <Maranda Guajardo PA-C - Last Filed: 07/03/20 08:08> Afebrile Abdomen has remained soft and benign Patient denies abdominal pain Oral intake still marginal but improving White count down George catheter reinserted because of retention Okay to transfer to rehab today with George - discussed with urology by DULCE Had a long discussion with patient's sister Magdalena and December - they are okay with the plan No antibiotics needed on discharge Patient seen and examined independently, agree with DULCE Guajardo <Adam Foster MD - Last Filed: 07/03/20 14:23> (3) Hypertension: Status: Acute <Maranda Guajardo PA-C - Last Filed: 07/03/20 08:08> (4) Dysuria: Status: Acute <Maranda Guajardo PA-C - Last Filed: 07/03/20 08:08> (5) Acute diverticulitis: Status: Acute <Maranda Guajardo PA-C - Last Filed: 07/03/20 08:08> Fall Risk Details Current Medications: Current Medications Generic Name Dose Route Start Last Admin Trade Name Freq PRN Reason Stop Dose Admin Acetaminophen 650 mg 06/19/20 08:33 Acetaminophen 325 Mg Tablet PO Q6H PRN Pain, Mild (Pain Scale 1-3) Albuterol Sulfate 2 puff 06/19/20 10:42 Albuterol Sulfate 90 Mcg 8 Gm Inhaler INHALE Q4H PRN wheezing Amlodipine Besylate 10 mg 06/26/20 09:00 07/02/20 09:26 Amlodipine Besylate 10 Mg Tablet PO 10 mg DAILY AARON Administration Protocol Atorvastatin Calcium 80 mg 06/20/20 09:00 07/02/20 09:25 Atorvastatin Calcium 80 Mg Tablet PO 80 mg DAILY AARON Administration Clonazepam 1 mg 06/19/20 21:00 07/02/20 21:24 Clonazepam 1 Mg Tablet PO 1 mg BID AARON Administration Clopidogrel Bisulfate 75 mg 06/25/20 09:00 07/02/20 09:26 Clopidogrel Bisulfate 75 Mg Tablet PO 75 mg DAILY AARON Administration Divalproex Sodium 250 mg 06/19/20 10:45 07/02/20 09:26 Divalproex Sodium Er 250 Mg Tab.Er.24h PO 250 mg DAILY AARON Administration Docusate Sodium 100 mg 06/25/20 21:00 07/02/20 21:24 Docusate Sodium 100 Mg Capsule PO 100 mg BID AARON Administration Duloxetine HCl 60 mg 06/19/20 10:45 07/02/20 09:25 Duloxetine Hcl 60 Mg Capsule.Dr PO 60 mg DAILY AARON Administration Famotidine 20 mg 06/19/20 21:00 07/02/20 21:24 Famotidine 20 Mg Tablet PO 20 mg BID AARON Administration Gabapentin 100 mg 06/19/20 21:00 07/02/20 21:24 Gabapentin 100 Mg Capsule PO 100 mg BID AARON Administration Heparin Sodium (Porcine) 5,000 unit 06/21/20 11:45 07/02/20 21:27 Heparin Sodium,Porcine 5,000 Unit/Ml Vial SUBCUT 5,000 unit Q12H AARON Administration Insulin Human Lispro 0 unit 06/20/20 16:30 07/02/20 21:24 Insulin Lispro 100 Unit/Ml 3 Ml Vial SUBCUT Not Given QIDACHS [facility] Protocol Lamotrigine 200 mg 06/19/20 10:45 07/02/20 21:24 Lamotrigine 100 Mg Tablet PO 200 mg BID AARON Administration Losartan Potassium 100 mg 06/20/20 09:00 07/02/20 09:25 Losartan Potassium 50 Mg Tablet PO 100 mg DAILY AARON Administration Protocol Magnesium Hydroxide 30 ml 06/26/20 08:06 06/26/20 12:37 Milk Of Magnesia 30 Ml Oral.Susp PO 30 ml DAILY PRN Administration Constipation Metoprolol Tartrate 75 mg 06/19/20 11:00 07/02/20 21:24 Metoprolol Tartrate 50 Mg Tablet PO 75 mg BID AARON Administration Protocol Pharmacy Consult 1 each 06/19/20 08:33 Consult Rx Perform Med Rec MISCELLANE ONCE PRN Consult order Risperidone 0.5 mg 06/19/20 10:42 Risperidone 0.5 Mg Tablet PO BID PRN Sleep Sodium Chloride 3 ml 06/19/20 08:33 07/03/20 00:27 0.9 % Sodium Chloride Flush 3 Ml Syringe IVFLUSH 3 ml QSHIFT AARON Administration Tamsulosin HCl 0.4 mg 06/20/20 09:00 07/02/20 09:25 Tamsulosin Hcl 0.4 Mg Capsule PO 0.4 mg DAILY AARON Administration <Maranda Guajardo PA-C - Last Filed: 07/03/20 08:08> Time Spent With Patient Time: Total time spent is greater than 50% in coordination of care (as documented) at patient's floor/unit and/or counseling patient: <Maranda Guajardo PA-C - Last Filed: 07/03/20 08:08> Time with patient: 15 - 24 minutes <Maranda Guajardo PA-C - Last Filed: 07/03/20 08:08>
[2020-07-03] MEDS: lamoTRIgine 100 MG TABLET 200 MG PO (08:42)
[2020-07-03] MEDS: amLODIPine Besylate 10 MG TABLET PO (08:42)
[2020-07-03] MEDS: Docusate Sodium 100 MG CAPSULE PO (08:42)
[2020-07-03] MEDS: Metoprolol Tartrate 50 MG TABLET 75 MG PO (08:42)
[2020-07-03] MEDS: Atorvastatin Calcium 80 MG TABLET PO (08:42)
[2020-07-03] MEDS: DULoxetine HCl 60 MG CAPSULE.DR PO (08:43)
[2020-07-03] MEDS: Famotidine 20 MG TABLET PO (08:44)
[2020-07-03] MEDS: Losartan Potassium 50 MG TABLET 100 MG PO (08:44)
[2020-07-03] MEDS: clonazePAM 1 MG TABLET PO (08:44)
[2020-07-03] MEDS: Divalproex Sodium ER 250 MG TAB.ER.24H PO (08:44)
[2020-07-03] MEDS: Gabapentin 100 MG CAPSULE PO (08:44)
[2020-07-03] MEDS: Clopidogrel Bisulfate 75 MG TABLET PO (08:44)
[2020-07-03] MEDS: Tamsulosin HCL 0.4 MG CAPSULE PO (08:44)
--- NOTE | 2020-07-03 09:17 | P.CNUR_ITS ---
History of Present Illness Consult details Consult date: 07/02/20 Narrative: Urinary retention This is a 64-year-old male. Admitted to the hospital June 23 with question of diverticulitis. Has been managed conservatively. Noted to have urinary retention on June 27. Baseline does have BPH with symptoms Known to have tamsulosin 0.4 mg p.o. daily There is no documentation as to the amount of urine obtained on placement of catheter Would recommend 72 hours with catheter then voiding trial. Voiding trial could be planned for MondayJuly 02. Start finasteride Can double up Flomax to 2 tabs at night. Review of Systems Review of Systems: Yes all other systems are reviewed and are negative Constitutional: Constitutional: Denies headache(s) and Reports weakness ENT: Reports dizziness and Denies headache(s) Musculoskeletal: Musculoskeletal: Denies numbness Neurologic: Reports system reviewed and no additional complaints, except as documented, Reports confusion, Reports dizziness, Denies headache(s), Denies numbness and Reports weakness Psychiatric: Psychiatric: Reports confusion PMFSH Past Medical History Medical History (Updated 07/01/20 @ 07:[address] MD) Anxiety BPH (benign prostatic hyperplasia) Coronary artery disease COVID-19 Diabetes High blood cholesterol Hyperlipidemia Intracranial atherosclerosis Stroke Family History Family History Other Coronary artery disease Diabetes Surgical History Surgical History H/O neck surgery History of heart artery stent Social History Social History Household Members: Family Housing: Assisted Living Facility Alcohol intake: never Smoking Status: Never smoker Use of substances other than those prescribed or required for medical reasons: No service: No Current occupational status: unemployed Meds Allergies Allergy/AdvReac Type Severity Reaction Status Date / Time lisinopril [LISINOPRIL] Allergy Unknown MUSCLE Verified 06/01/20 11:58 ACHES pregabalin [From LYRICA] Allergy Unknown UNKNOWN Verified 06/01/20 11:58 Home Medications Medication Instructions Recorded Confirmed Type albuterol sulfate 2 puff INHALATION Q4H PRN 06/19/20 06/19/20 History atorvastatin 1 tab PO DAILY 06/19/20 06/19/20 History cholecalciferol (vitamin D3) 1 cap PO DAILY 06/19/20 06/19/20 History clonazepam 1 mg PO BID 06/19/20 06/19/20 History clopidogrel 1 tab PO DAILY 06/19/20 06/19/20 History divalproex 1 tab PO DAILY 06/19/20 06/19/20 History duloxetine 1 cap PO DAILY 06/19/20 06/19/20 History famotidine 1 tab PO BID 06/19/20 06/19/20 History gabapentin 1 cap PO BID 06/19/20 06/19/20 History lamotrigine 1 tab PO BID 06/19/20 06/19/20 History lancets [OneTouch Delica Plus 06/19/20 06/19/20 History Lancet] loperamide 2 mg PO 3XW PRN 06/19/20 06/19/20 History losartan 1 tab PO DAILY 06/19/20 06/19/20 History metformin 1 tab PO BID 06/19/20 06/19/20 History metoprolol tartrate 1.5 tab PO BID 06/19/20 06/19/20 History promethazine 1 tab PO DAILY PRN 06/19/20 06/19/20 History risperidone 1 tab PO BID PRN 06/19/20 06/19/20 History tamsulosin 1 cap PO DAILY 06/19/20 06/19/20 History Physical Exam Vital Signs: Vital Signs: Last Vital Signs Temp 98.1 F 07/03/20 07:58 Pulse 75 07/03/20 07:58 Resp 18 07/03/20 07:58 BP 172/89 H 07/03/20 07:58 Pulse Ox 100 07/03/20 07:58 Body Mass Index 28.6 Const: General: confusion Nutritional Appearance: average body habitus Orientation/consciousness: confusion Eyes: General: appearance normal, both eyes and all related structures Chest: Chest palpation & inspection: normal inspection of the chest Resp: Effort & Inspection: normal respiratory effort Cardio: Rate: regular rate GI: Inspection: Yes normal to inspection Skin: Hair: normal Neuro: General: confusion Extrem: General: Yes normal to inspection Results Labs Result diagrams: 07/01/20 08:07 07/01/20 08:07 Labs: Urine 06/19/20 06/19/20 06/28/20 Range/Units 22:42 22:42 18:04 Urine Color Cancelled JOSE YELLOW Urine Appearance Cancelled CLEAR CLEAR Urine pH Cancelled 6.0 7.5 Ur Specific Randolph Cancelled 1.015 1.015 Urine Protein Cancelled NEG NEG Urine Glucose (UA) Cancelled NEG NEG All other labs normal. Assessment and Plan (1) 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 hyperplasia: Status: Acute Had tamsulosin 2 tabs q.h.s. with finasteride Can follow in office 2 weeks after discharge for assessment
[2020-07-03] MEDS: Finasteride 5 MG TABLET PO (10:31)
--- NOTE | 2020-07-03 10:57 | PC.NURSE ---
1030 F/C dc'd at this time. Urology consulted
--- NOTE | 2020-07-03 11:04 | MHC.CM.PN ---
IRMA contacted pts , December ([phone]) and informed her the pt was cleared to DC today. She reports she called last night ajnd the nurse told her the pts WBC count was going up. She also reports her [id number], Magdalena ([phone]) wanted to speak to Dr Way before the pt was discharged. She reports her Magdalena knows a lot more about this than she does because she has been through this before and almost . IRMA agreed to message surgeon and request Magdalena be contacted. IRMA will resume discussion with Nelia after they speak with . IRMA sent updates to Juanito Gilman this morning and requested they submit to the insurance company for authorization.
[2020-07-03 11:35] VITALS: BP 149/83; PULSE 68; RESP 18; TEMP 36.4; O2SAT 93
[2020-07-03 12:03] LABS: Glucose, Whole Blood 117 mg/dL (60-115)
[2020-07-03 12:24] LABS: MANUAL DIFF FLAG NO
[2020-07-03 12:29] LABS: Basophils Percent Auto 0.2 % (0-2); Eosinophils Absolute Auto 0.2 X10*3/uL (0.0-0.4); Eosinophils Percent Auto 1.8 % (0-4); Hematocrit 36.8 % (42-52); Hemoglobin 12.4 g/dl (14.0-18.0); Imm Gran Abs Auto 0.05 X10*3/uL (0.00-0.03); Imm Gran Pct Auto 0.5 % (0.0-0.4); Lymphocytes Absolute Auto 2.4 X10*3/uL (1.2-4.9); Lymphocytes Percent Auto 25.5 % (20-40); Mean Corpuscular HGB Conc 33.7 g/dl (31.0-36.0); Mean Corpuscular Hemoglobin 29.8 pg (27.0-33.0); Mean Corpuscular Volume 88.5 fL (80-98); Mean Platelet Volume 9.5 fL (9.4-12.4); Monocytes Absolute Auto 1.1 X10*3/uL (0.1-1.2); Monocytes Percent Auto 11.5 % (2-11); Neutrophils Absolute Auto 5.6 X10*3/uL (2.0-8.3); Neutrophils Percent Auto 60.5 % (45-73); Platelet Count 278 X10*3/uL (160-400); Red Blood Count 4.16 X10*6/uL (4.60-5.80); Red Cell Distribution Width 12.7 % (11.0-16.0); White Blood Count 9.2 X10*3/uL (4.8-10.8)
[2020-07-03] MEDS: Heparin Sodium,Porcine 5,000 UNIT/ML VIAL 5000 UNIT SUBCUT (13:11)
--- NOTE | 2020-07-03 14:08 | MHC.CLN ---
RE: CALORIE COUNT CONTINUES PT TAKES BITES AND SIPS AT MEALS PT DOES BEST IN MORNING -MORE AWAKE; SLEEPS MOST OF DAY PER NSG NURSE REPORTS 25% PO, NO INTAKE AT LUNCH HELD MASHED IN MOUTH PT DOES ACCEPT SUPPLEMENT CONTINUE CALORIE COUNT AND MONITOR WEIGHTS CLOSELY
[2020-07-03 14:47] LABS: COVID-19 Test Negative (Negative); IDNOW Serial# 9DD0AD1C
--- NOTE | 2020-07-03 15:20 | MHC.CM.PN ---
IRMA spoke to pts , December ([phone]) who reported after speaking to the general surgeons PA and a nurse at [facility], she as agreeable to pt DC. December reports she will bring clothing for the pt to the [facility] tomorrow. IRMA informed her that the pt would likely go around 1500 hours this evening. If DC time is changed, IRMA will update December. Pt will DC to [facility] today at 1700 hours via [facility]
[2020-07-03 15:39] VITALS: BP 151/76; PULSE 70; RESP 18; TEMP 36.4; O2SAT 90
[2020-07-03 16:43] LABS: Glucose, Whole Blood 139 mg/dL (60-115)
--- NOTE | 2020-07-03 17:18 | PC.NURSE ---
PATIENT AGUERO REMOVED AT 1030 THIS MORNING. PATIENT UNABLE TO VOID AT 1630. BLADDER SCAN 224ML. NOTIFIED DOCTOR ZAHEER. STATES OK TO PUT IN AGUERO CATHETER FOR VOIDING TRIAL AT FACILITY ON DISCHARGE.
== END 2020-07-03 17:25 | disposition skilled nursing facility (03) | DRG 244 ==
LOC: HO.ED 01:50 → HO.S3 06:45
PROVIDERS: Family Medicine; Internal Medicine; Physician Assistant Surgical; Radiology Diagnostic Radiology; Surgery; Admitting Provider Surgery; Emergency Provider Internal Medicine; Visit Provider Surgery
DX: K57.20 Diverticulitis of large intestine with perforation and abscess without bleeding (principal); E11.9 Type 2 diabetes mellitus without complications; N40.1 Benign prostatic hyperplasia with lower urinary tract symptoms; R33.8 Other retention of urine; I25.10 Atherosclerotic heart disease of native coronary artery without angina pectoris; R30.0 Dysuria; I10 Essential (primary) hypertension; Z79.02 Long term (current) use of antithrombotics/antiplatelets; Z79.84 Long term (current) use of oral hypoglycemic drugs; Z79.899 Other long term (current) drug therapy
CPT/HCPCS: 0241U; 36415; 70450; 71045; 74176; 74177; 80048; 80053; 80076; 81001; 81003; 82140; 82947; 83605; 83690; 84484; 85025; 85610; 85730; 87040; 87635; 93005; 96361; 96365; 96375; 97163; 97530; 99231; 99284; 99285; C1758; J1956; J2270; Q9967

== ENCOUNTER 2020-07-04 07:06 | Outpatient (REF) | payer OTHER, SELFPAY ==
[2020-07-04 08:11] LABS: MANUAL DIFF FLAG NO
[2020-07-04 08:14] LABS: Basophils Percent Auto 0.3 % (0-2); Eosinophils Percent Auto 0.2 % (0-4); Hematocrit 39.6 % (42-52); Hemoglobin 13.5 g/dl (14.0-18.0); Imm Gran Abs Auto 0.04 X10*3/uL (0.00-0.03); Imm Gran Pct Auto 0.4 % (0.0-0.4); Lymphocytes Absolute Auto 1.7 X10*3/uL (1.2-4.9); Lymphocytes Percent Auto 18.8 % (20-40); Mean Corpuscular HGB Conc 34.1 g/dl (31.0-36.0); Mean Corpuscular Volume 90.8 fL (80-98); Mean Platelet Volume 9.8 fL (9.4-12.4); Monocytes Percent Auto 11.6 % (2-11); Neutrophils Absolute Auto 6.1 X10*3/uL (2.0-8.3); Neutrophils Percent Auto 68.7 % (45-73); Platelet Count 312 X10*3/uL (160-400); Red Blood Count 4.36 X10*6/uL (4.60-5.80); Red Cell Distribution Width 12.7 % (11.0-16.0); White Blood Count 8.9 X10*3/uL (4.8-10.8)
[2020-07-04 08:19] LABS: Alanine Aminotransferase 8 U/L (0-40); Alkaline Phosphatase 51 U/L (39-117); Anion Gap 15 (12-20); Aspartate Amino Transferase 11 U/L (5-37); Bilirubin Total 0.5 mg/dL (0.0-1.0); Blood Urea Nitrogen 13 mg/dL (9-16); Calcium 8.9 mg/dL (8.4-10.2); Carbon Dioxide 26 mmol/L (22-29); Chloride 105 mmol/L (96-108); Estimated Glomerular Filt Rate > 60; Glucose Random 110 mg/dL (60-115); Potassium 3.8 mmol/l (3.3-5.1); Sodium 142 mmol/L (135-145); Total Protein 6.6 g/dL (6.5-8.0)
== END 2020-07-04 07:07 | disposition home or self-care (01) ==
LOC: HO.MMNH3L 07:06
PROVIDERS: Visit Provider Family Medicine
DX: K57.90 Diverticulosis of intestine, part unspecified, without perforation or abscess without bleeding (principal); I10 Essential (primary) hypertension; E11.9 Type 2 diabetes mellitus without complications
CPT/HCPCS: 36415; 80053; 85025

== ENCOUNTER 2020-07-07 04:32 | Outpatient (REF) | payer OTHER, SELFPAY ==
[2020-07-07 07:29] LABS: Hematocrit 40.1 % (42-52); Hemoglobin 12.9 g/dl (14.0-18.0); Mean Corpuscular HGB Conc 32.2 g/dl (31.0-36.0); Mean Corpuscular Hemoglobin 29.5 pg (27.0-33.0); Mean Corpuscular Volume 91.8 fL (80-98); Platelet Count 346 X10*3/uL (160-400); Red Blood Count 4.37 X10*6/uL (4.60-5.80); White Blood Count 14.2 X10*3/uL (4.8-10.8)
[2020-07-07 07:58] LABS: Anion Gap 17 (12-20); Blood Urea Nitrogen 41 mg/dL (9-16); Calcium 8.8 mg/dL (8.4-10.2); Carbon Dioxide 27 mmol/L (22-29); Chloride 103 mmol/L (96-108); Estimated Glomerular Filt Rate 32; Glucose Random 94 mg/dL (60-115); Potassium 3.5 mmol/l (3.3-5.1); Sodium 143 mmol/L (135-145)
== END 2020-07-07 04:33 | disposition home or self-care (01) ==
LOC: HO.MMNH3L 04:32
PROVIDERS: Visit Provider Family Medicine
DX: I10 Essential (primary) hypertension (principal); E11.9 Type 2 diabetes mellitus without complications; K57.90 Diverticulosis of intestine, part unspecified, without perforation or abscess without bleeding
CPT/HCPCS: 36415; 80048; 85027

== ENCOUNTER 2020-07-08 11:12 | Inpatient (IN) | payer OTHER, SELFPAY ==
[2020-07-08] VITALS (9 sets, daily range): BP systolic 97–137; BP diastolic 55–78; PULSE 79–89; RESP 12–19; TEMP 36.4–37.7; O2SAT 96–100; BMI 56.6
--- NOTE | 2020-07-08 11:37 | ECG_ITS ---
Test Reason : WEAKNESS Blood Pressure : / mmHG Vent. Rate : 080 BPM Atrial Rate : 080 BPM P-R Int : 192 ms QRS Dur : 098 ms QT Int : 398 ms P-R-T Axes : 050 -19 038 degrees QTc Int : 459 ms Normal sinus rhythm Minimal voltage criteria for LVH, may be normal variant Nonspecific ST and T wave abnormality Abnormal ECG When compared with ECG of 19-JUN-2020 02:13, Nonspecific T wave abnormality, improved in Lateral leads Referred By: Sylvia George Electronically Signed By:STEVE REILLY MD
--- NOTE | 2020-07-08 11:38 | CT_ITS ---
EXAMINATION: CT HEAD WITHOUT CONTRAST CLINICAL INFORMATION: Lethargy, acute altered mental status. COMPARISON: CT head noncontrast 06/29/2020, 06/28/2020 TECHNIQUE: Contiguous axial imaging was performed from the skull base to vertex without intravenous administration of contrast. Additional 2-D coronal and sagittal reformatted images are generated on the CT workstation and uploaded to PACS. This CT examination was performed using dose optimization techniques as appropriate, variously including the following: *Automated exposure control *Adjustment of mA and/or kV according to patient size (this includes techniques or standardized protocols for targeted exams where dose is matched to indication/reason for exam; i.e. extremities or head) *Use of iterative reconstruction technique DLP: 755 mGy-cm FINDINGS: There is no intracranial hemorrhage, hematoma, or extra-axial fluid collection. The ventricles are normal in size. There is no hydrocephalus, edema, or mass effect. The alexander-white matter differentiation appears symmetric. There is no visible acute territorial infarct or mass lesion. Again, there are some fine bilateral basal ganglia calcifications similar to prior studies. The calvarium appears intact. There is no pneumocephalus or orbital emphysema. No air-fluid levels sinuses and middle ears or mastoids. CT/CT head/brain wo con IMPRESSION: No acute intracranial abnormality.
--- NOTE | 2020-07-08 11:39 | XR_ITS ---
EXAMINATION: XR CHEST CLINICAL INFORMATION: Shortness of breath. Covid infection. COMPARISON: Previous chest x-ray 06/19/2020 TECHNIQUE: Frontal view of the chest was obtained. FINDINGS: The cardiac and mediastinal contours are stable. There is atelectasis or small infiltrate at the left lung base. The lungs are otherwise clear. There is no pleural effusion or pneumothorax. There are degenerative changes of the spine. XR/XR chest 1V IMPRESSION: Atelectasis or small infiltrate at the left lung base.
--- NOTE | 2020-07-08 11:50 | CT_ITS ---
EXAMINATION: CT CHEST, ABDOMEN AND PELVIS WITHOUT CONTRAST CLINICAL INFORMATION: 64-year-old male patient with cold foot. Hypoxia. Recent diverticulitis with abscess. Tenderness on exam. COMPARISON: CT of the abdomen and pelvis on 06/22/2020. (Worsening sigmoid diverticulitis abscess measures 2.6 x 3.3 x 6.0 cm. Free fluid). Chest x-ray performed earlier today. TECHNIQUE: Multidetector volumetric imaging was performed from the thoracic inlet through the pubic symphysis without intravenous contrast. Oral contrast: None Sagittal and coronal reformatted images were obtained on the technologist workstation. Total exam dose-length product 2151 mGy-cm. FINDINGS: SERVER SERVICE ASSISTANT: Unremarkable. LUNG: No focal consolidation, nodules or masses. Minimal subsegmental dependent atelectasis in both lower lobes. PLEURA: No pleural effusion or pneumothorax. MEDIASTINUM: Normal heart size. No pericardial effusion. No hilar or mediastinal lymphadenopathy. 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 There are diffuse calcifications of the coronary arteries. VASCULAR: No thoracic aortic aneurysm. CHEST WALL/AXILLA: No axillary or internal mammary lymphadenopathy. LIVER, GALLBLADDER AND BILIARY TREE: Remains normal in size and attenuation. No evidence of intrahepatic abscess formation. The gallbladder and biliary ducts are normal. PANCREAS: Normal; no mass or surrounding fluid. SPLEEN: Normal size. No focal lesion. ADRENAL GLANDS: Normal; no mass. KIDNEYS AND URETERS: No change. No hydronephrosis. GASTROINTESTINAL TRACT: There is increased asymmetric wall thickening of the mid sigmoid colon with persistent pericolonic fat stranding. Air-fluid levels are contained within the multiloculated pericolonic abscess which now measures 3.7 cm in width, 4.7 cm in oblique AP diameter, and approximately 7.0 cm in cephalocaudad dimension. The free fluid in the left paracolic gutter and presacral space has resolved. No free air. The small bowel is not dilated. The appendix is normal. ABDOMINAL WALL: Noncalcified injection granulomata are present in the anterior abdominal wall fat. There is a small fat-containing left inguinal hernia. LYMPHOVASCULAR STRUCTURES: No lymphadenopathy. BLADDER: Decompressed via a Byrd catheter. PELVIC VISCERA: Coarse calcifications are seen in the prostate gland. OSSEOUS STRUCTURES: No acute or suspicious osseous abnormality. CT/CT abdomen pelvis wo con IMPRESSION: 1. Subsegmental dependent atelectasis of both lower lobes. 2. Persistent sigmoid diverticulitis with pericolonic abscess which is increased in size.
--- NOTE | 2020-07-08 11:50 | CT_ITS ---
EXAMINATION: CT CHEST, ABDOMEN AND PELVIS WITHOUT CONTRAST CLINICAL INFORMATION: 64-year-old male patient with cold foot. Hypoxia. Recent diverticulitis with abscess. Tenderness on exam. COMPARISON: CT of the abdomen and pelvis on 06/22/2020. (Worsening sigmoid diverticulitis abscess measures 2.6 x 3.3 x 6.0 cm. Free fluid). Chest x-ray performed earlier today. TECHNIQUE: Multidetector volumetric imaging was performed from the thoracic inlet through the pubic symphysis without intravenous contrast. Oral contrast: None Sagittal and coronal reformatted images were obtained on the technologist workstation. Total exam dose-length product 2151 mGy-cm. FINDINGS: OCEAN CLAM BOAT CAPTAIN: Unremarkable. LUNG: No focal consolidation, nodules or masses. Minimal subsegmental dependent atelectasis in both lower lobes. PLEURA: No pleural effusion or pneumothorax. MEDIASTINUM: Normal heart size. No pericardial effusion. No hilar or mediastinal lymphadenopathy. 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 There are diffuse calcifications of the coronary arteries. VASCULAR: No thoracic aortic aneurysm. CHEST WALL/AXILLA: No axillary or internal mammary lymphadenopathy. LIVER, GALLBLADDER AND BILIARY TREE: Remains normal in size and attenuation. No evidence of intrahepatic abscess formation. The gallbladder and biliary ducts are normal. PANCREAS: Normal; no mass or surrounding fluid. SPLEEN: Normal size. No focal lesion. ADRENAL GLANDS: Normal; no mass. KIDNEYS AND URETERS: No change. No hydronephrosis. GASTROINTESTINAL TRACT: There is increased asymmetric wall thickening of the mid sigmoid colon with persistent pericolonic fat stranding. Air-fluid levels are contained within the multiloculated pericolonic abscess which now measures 3.7 cm in width, 4.7 cm in oblique AP diameter, and approximately 7.0 cm in cephalocaudad dimension. The free fluid in the left paracolic gutter and presacral space has resolved. No free air. The small bowel is not dilated. The appendix is normal. ABDOMINAL WALL: Noncalcified injection granulomata are present in the anterior abdominal wall fat. There is a small fat-containing left inguinal hernia. LYMPHOVASCULAR STRUCTURES: No lymphadenopathy. BLADDER: Decompressed via a Byrd catheter. PELVIC VISCERA: Coarse calcifications are seen in the prostate gland. OSSEOUS STRUCTURES: No acute or suspicious osseous abnormality. CT/CT chest wo con IMPRESSION: 1. Subsegmental dependent atelectasis of both lower lobes. 2. Persistent sigmoid diverticulitis with pericolonic abscess which is increased in size.
[2020-07-08] MEDS: 0.9 % Sodium Chloride 1,000 ML 999 ML IVCONT ×2 (11:52→14:29)
--- NOTE | 2020-07-08 11:59 | ED.AMS ---
HPI - Altered Mental Status General Chief Complaint: Weakness Stated Complaint: lethargy/fever Time Seen by Provider: 07/08/20 11:37 Source: EMS Mode of arrival: EMS Limitations: altered mental status History of Present Illness HPI narrative: 64 y/o male with history of HTN, urinary retention 2/2 BPH with recent Byrd placement, [place] [facility] [place] (treated conservatively), DM, HLD, hx CVA presents back to the ER with acute onset of altered mental status and lethargy that started today per EMS. Patient is not able to provide history. Spoke with nurse at [facility] - he was discharged from here to there 3 days ago. On day of presentation there he had a fall. They did lab work the following day showing ROBERT and leukocytosis. Nurse reports they assumed dehydration and pushed oral fluids. He was slightly lethargic yesterday with decreased food intake but was drinking adequately. She denies him complaining of abd pain or diarrhea. Today lethargy was much more pronounced but he was able to take his meds this morning (including 3 anti-hypertensives, klonopin and gabapentin). His lethargy worsened so EMS was falled. She denied any fevers. He was COVID negative on admission there. Related Data Home Medications Medication Instructions Recorded Confirmed albuterol sulfate 2 puff INHALATION Q4H PRN 06/19/20 06/19/20 atorvastatin 1 tab PO DAILY 06/19/20 06/19/20 cholecalciferol (vitamin D3) 1 cap PO DAILY 06/19/20 06/19/20 clonazepam 1 mg PO BID 06/19/20 06/19/20 clopidogrel 1 tab PO DAILY 06/19/20 06/19/20 divalproex 1 tab PO DAILY 06/19/20 06/19/20 duloxetine 1 cap PO DAILY 06/19/20 06/19/20 famotidine 1 tab PO BID 06/19/20 06/19/20 gabapentin 1 cap PO BID 06/19/20 06/19/20 lamotrigine 1 tab PO BID 06/19/20 06/19/20 lancets [OneTouch Delica Plus 06/19/20 06/19/20 Lancet] loperamide 2 mg PO 3XW PRN 06/19/20 06/19/20 losartan 1 tab PO DAILY 06/19/20 06/19/20 metformin 1 tab PO BID 06/19/20 06/19/20 metoprolol tartrate 1.5 tab PO BID 06/19/20 06/19/20 promethazine 1 tab PO DAILY PRN 06/19/20 06/19/20 risperidone 1 tab PO BID PRN 06/19/20 06/19/20 Previous Rx's Medication Instructions Recorded amlodipine 10 mg PO DAILY #30 tab 07/03/20 finasteride 5 mg PO DAILY #30 tab 07/03/20 lactobacillus combo no.11 1 cap PO DAILY #30 cap 07/03/20 [Probiotic] tamsulosin 0.8 mg PO BEDTIME #30 cap 07/03/20 Allergies Allergy/AdvReac Type Severity Reaction Status Date / Time lisinopril [LISINOPRIL] Allergy Unknown MUSCLE Verified 06/01/20 11:58 ACHES pregabalin [From LYRICA] Allergy Unknown UNKNOWN Verified 06/01/20 11:58 Review of Systems Review of Systems: Yes Unobtainable due to mental status [facility] Past Medical History Attestation statement: The following information was validated with the patient. Medical History Anxiety BPH (benign prostatic hyperplasia) Coronary artery disease COVID-19 Diabetes High blood cholesterol Hyperlipidemia Intracranial atherosclerosis Stroke Surgical History H/O neck surgery History of heart artery stent Family History Family History Other Coronary artery disease Diabetes Social History Social History Household Members: Family Housing: Assisted Living Facility Alcohol intake: never Smoking Status: Never smoker Advance Directives: No Advance Directives Information Provided: Yes service: No Current occupational status: unemployed Physical Exam Vital Signs: Vital Signs: Last Vital Signs Temp 99.8 F 07/08/20 11:24 Pulse 79 07/08/20 15:31 Resp 16 07/08/20 15:31 BP 110/61 07/08/20 15:31 Pulse Ox 100 07/08/20 15:31 Body Mass Index 56.6 Appearance: lethargic, no acute distresds Eyes: Pupils equal, round and reactive to light. no nystagmus, no gaze preference ENT: dry mucus membranes Neck: Normal inspection. Neck supple. CVS: Normal heart rate and rhythm. Pulses normal. Respiratory: No respiratory distress. Breath sounds normal. Abdomen: Soft, LLQ tenderness to deep palpation, +BS x4, ecchymosis on abd wall Skin: Skin warm and dry. Normal skin color. Normal skin turgor. No rashes. Extremities: No lower extremity edema. right foot drop Neuro: lethargic, opens eyes to verbal and noxious stimuli, withdraws from pain, does not follow commands. Course Course Course Narrative: 64 y/o male presenting with acute onset of AMS that started today. Reportedly found to be COVID positive 3 days ago. Recent admission for diverticulitis w/ abscess and LLQ tenderness on exam. No abd rigidity, doubt acute abdomen but will get CT scan for further evaluation. Hx metabolic encephalopathy last admission, klonopin and gabapentin were held, unsure if restarted. CT scan head and chest ordered as well as well as full septic workup. He had labs done today and yesterday that showed ROBERT and leukocytosis. Will need to f/u with [facility] for further information. Reevaluation(s) Reevaluation #1: Spoke with nurse at [facility] Reevaluation #2: 2:50pm - patient continues to be lethargic but arouses to voice and noxious stimuli now, incoherent and falls back asleep. CT scan showing worsening diverticulitis with increasing abscess compared to prior 3.3. Dr. Foster paged. Reevaluation #3: Spoke with Dr. Foster who reviewed the imaging. He will d/w IR about draining abscess but it is still small. Given his comorbidities and other medical issues including persistent encephalopathy and renal failure, recommends admission to medicine and he will consult. TT sent to hospitalist at 3:15pm. Consultations Consultation #1: General Surgery - Dr. Foster MDM - Altered Mental Status MDM Narrative Medical decision making narrative: concern for metabolic encephalopathy 2/2 sepsis, worsening diverticulitis vs c diff, possible COVID Differential Diagnosis Differential diagnosis: Likely altered mental status, hypoglycemia, hyponatremia, renal failure, sepsis and seizures Medical Records Attestation: I reviewed the patient's medical records. Lab Data Attestation: I reviewed the patient's lab results. Result diagrams: 07/08/20 11:55 07/08/20 11:57 Labs: Lab Results 07/08/20 07/08/20 07/08/20 Range/Units 11:55 11:55 11:55 WBC 13.5 H (4.8-10.8) X10*3/uL RBC 4.33 L (4.60-5.80) X10*6/uL Hgb 13.1 L (14.0-18.0) g/dl Hct 40.0 L (42-52) % MCV 92.4 (80-98) fL MCH 30.3 (27.0-33.0) pg MCHC 32.8 (31.0-36.0) g/dl RDW 13.1 (11.0-16.0) % Plt Count 333 (160-400) X10*3/uL MPV 9.9 (9.4-12.4) fL Immature Gran % (Auto) 0.3 (0.0-0.4) % Neut % (Auto) 68.9 (45-73) % Lymph % (Auto) 15.2 L (20-40) % [place] % (Auto) 15.1 H (2-11) % Eos % (Auto) 0.2 (0-4) % Baso % (Auto) 0.3 (0-2) % Lymph # (Auto) 2.1 (1.2-4.9) X10*3/uL [place] # (Auto) 2.0 H (0.1-1.2) X10*3/uL Eos # (Auto) 0.0 (0.0-0.4) X10*3/uL Baso # (Auto) 0.0 (0.0-0.2) X10*3/uL Abs Immat Gran (auto) 0.04 H (0.00-0.03) X10*3/uL Absolute Neuts (auto) 9.3 H (2.0-8.3) X10*3/uL Absolute Nucleated RBC 0.000 (0.0-0.012) X10*3/uL Nucleated RBC % (auto) 0.0 (0.0-0.2) /100WBC Smear Tech's Comments VERIFIED PT 14.0 H (10.8-13.0) SEC INR 1.2 H (0.9-1.1) APTT 30.8 (24.1-38.0) SEC D-Dimer 221 NG/ML Hold Blue Top SEE NOTE Sodium (135-145) mmol/L Potassium (3.3-5.1) mmol/l Chloride (96-108) mmol/L Carbon Dioxide (22-29) mmol/L Anion Gap (12-20) BUN (9-16) mg/dL Creatinine (0.5-1.4) mg/dL Estim Creat Clear Calc Estimated GFR Random Glucose (60-115) mg/dL Lactic Acid 2.5 H* (0.5-2.0) mmol/L Calcium (8.4-10.2) mg/dL Magnesium (1.6-2.6) mg/dL Total Bilirubin (0.0-1.0) mg/dL Direct Bilirubin (0.0-0.5) mg/dL AST (5-37) U/L ALT (0-40) U/L Alkaline Phosphatase (39-117) U/L Troponin I High Sens (<3.5-35.0) ng/L C-Reactive Protein (< or = 0.50) mg/dL B-Natriuretic Peptide (<100) pg/mL Total Protein (6.5-8.0) g/dL Albumin (3.5-5.0) g/dL Lipase (8-78) U/L Procalcitonin ng/mL Urine Color Urine Appearance Urine pH (5.0-8.0) Ur Specific Bulger (1.005-1.025) Urine Protein (NEG-TRACE) MG/DL Urine Glucose (UA) (NEG) MG/DL Urine Ketones (NEG) MG/DL Urine Blood (NEG) Urine Nitrite (NEG) Ur Leukocyte Esterase (NEG) Urine RBC (0) /HPF Urine WBC (0-4) /HPF Ur Squamous Epith Cells /LPF Urine Bacteria /LPF Urine Opiates Screen (Not Detect) Ur Barbiturates Screen (Not Detect) Ur Phencyclidine Scrn (Not Detect) Ur Amphetamines Screen (Not Detect) U Benzodiazepines Scrn (Not Detect) Urine Cocaine Screen (Not Detect) U Marijuana (THC) Screen (Not Detect) COVID-19 (AILIN) (Negative) COVID-19 Clin Com 07/08/20 07/08/20 07/08/20 Range/Units 11:55 11:55 11:55 WBC (4.8-10.8) X10*3/uL RBC (4.60-5.80) X10*6/uL Hgb (14.0-18.0) g/dl Hct (42-52) % MCV (80-98) fL MCH (27.0-33.0) pg MCHC (31.0-36.0) g/dl RDW (11.0-16.0) % Plt Count (160-400) X10*3/uL MPV (9.4-12.4) fL Immature Gran % (Auto) (0.0-0.4) % Neut % (Auto) (45-73) % Lymph % (Auto) (20-40) % [place] % (Auto) (2-11) % Eos % (Auto) (0-4) % Baso % (Auto) (0-2) % Lymph # (Auto) (1.2-4.9) X10*3/uL [place] # (Auto) (0.1-1.2) X10*3/uL Eos # (Auto) (0.0-0.4) X10*3/uL Baso # (Auto) (0.0-0.2) X10*3/uL Abs Immat Gran (auto) (0.00-0.03) X10*3/uL Absolute Neuts (auto) (2.0-8.3) X10*3/uL Absolute Nucleated RBC (0.0-0.012) X10*3/uL Nucleated RBC % (auto) (0.0-0.2) /100WBC Smear Tech's Comments PT (10.8-13.0) SEC INR (0.9-1.1) APTT (24.1-38.0) SEC D-Dimer NG/ML Hold Blue Top Sodium (135-145) mmol/L Potassium (3.3-5.1) mmol/l Chloride (96-108) mmol/L Carbon Dioxide (22-29) mmol/L Anion Gap (12-20) BUN (9-16) mg/dL Creatinine (0.5-1.4) mg/dL Estim Creat Clear Calc Estimated GFR Random Glucose (60-115) mg/dL Lactic Acid (0.5-2.0) mmol/L Calcium (8.4-10.2) mg/dL Magnesium 2.3 (1.6-2.6) mg/dL Total Bilirubin (0.0-1.0) mg/dL Direct Bilirubin (0.0-0.5) mg/dL AST (5-37) U/L ALT (0-40) U/L Alkaline Phosphatase (39-117) U/L Troponin I High Sens 7.2 (<3.5-35.0) ng/L C-Reactive Protein 7.85 H (< or = 0.50) mg/dL B-Natriuretic Peptide 11 (<100) pg/mL Total Protein (6.5-8.0) g/dL Albumin (3.5-5.0) g/dL Lipase 12 (8-78) U/L Procalcitonin 0.45 ng/mL Urine Color Urine Appearance Urine pH (5.0-8.0) Ur Specific Bulger (1.005-1.025) Urine Protein (NEG-TRACE) MG/DL Urine Glucose (UA) (NEG) MG/DL Urine Ketones (NEG) MG/DL Urine Blood (NEG) Urine Nitrite (NEG) Ur Leukocyte Esterase (NEG) Urine RBC (0) /HPF Urine WBC (0-4) /HPF Ur Squamous Epith Cells /LPF Urine Bacteria /LPF Urine Opiates Screen (Not Detect) Ur Barbiturates Screen (Not Detect) Ur Phencyclidine Scrn (Not Detect) Ur Amphetamines Screen (Not Detect) U Benzodiazepines Scrn (Not Detect) Urine Cocaine Screen (Not Detect) U Marijuana (THC) Screen (Not Detect) COVID-19 (AILIN) (Negative) COVID-19 Clin Com 07/08/20 07/08/20 07/08/20 Range/Units 11:55 11:55 11:57 WBC (4.8-10.8) X10*3/uL RBC (4.60-5.80) X10*6/uL Hgb (14.0-18.0) g/dl Hct (42-52) % MCV (80-98) fL MCH (27.0-33.0) pg MCHC (31.0-36.0) g/dl RDW (11.0-16.0) % Plt Count (160-400) X10*3/uL MPV (9.4-12.4) fL Immature Gran % (Auto) (0.0-0.4) % Neut % (Auto) (45-73) % Lymph % (Auto) (20-40) % [place] % (Auto) (2-11) % Eos % (Auto) (0-4) % Baso % (Auto) (0-2) % Lymph # (Auto) (1.2-4.9) X10*3/uL [place] # (Auto) (0.1-1.2) X10*3/uL Eos # (Auto) (0.0-0.4) X10*3/uL Baso # (Auto) (0.0-0.2) X10*3/uL Abs Immat Gran (auto) (0.00-0.03) X10*3/uL Absolute Neuts (auto) (2.0-8.3) X10*3/uL Absolute Nucleated RBC (0.0-0.012) X10*3/uL Nucleated RBC % (auto) (0.0-0.2) /100WBC Smear Tech's Comments PT (10.8-13.0) SEC INR (0.9-1.1) APTT (24.1-38.0) SEC D-Dimer NG/ML Hold Blue Top Sodium 145 (135-145) mmol/L Potassium 3.6 (3.3-5.1) mmol/l Chloride 107 (96-108) mmol/L Carbon Dioxide 24 (22-29) mmol/L Anion Gap 18 (12-20) BUN 52 H (9-16) mg/dL Creatinine 1.84 H (0.5-1.4) mg/dL Estim Creat Clear Calc 64.2 Estimated GFR 37 Random Glucose 111 (60-115) mg/dL Lactic Acid (0.5-2.0) mmol/L Calcium 8.8 (8.4-10.2) mg/dL Magnesium (1.6-2.6) mg/dL Total Bilirubin 0.7 (0.0-1.0) mg/dL Direct Bilirubin 0.3 (0.0-0.5) mg/dL AST 9 (5-37) U/L ALT 7 (0-40) U/L Alkaline Phosphatase 50 (39-117) U/L Troponin I High Sens (<3.5-35.0) ng/L C-Reactive Protein (< or = 0.50) mg/dL B-Natriuretic Peptide (<100) pg/mL Total Protein 6.7 (6.5-8.0) g/dL Albumin 4.1 (3.5-5.0) g/dL Lipase (8-78) U/L Procalcitonin ng/mL Urine Color YELLOW Urine Appearance CLOUDY Urine pH 5.5 (5.0-8.0) Ur Specific Bulger >= 1.030 H (1.005-1.025) Urine Protein TRACE (NEG-TRACE) MG/DL Urine Glucose (UA) NEG (NEG) MG/DL Urine Ketones NEG (NEG) MG/DL Urine Blood 3+ H (NEG) Urine Nitrite NEG (NEG) Ur Leukocyte Esterase 1+ H (NEG) Urine RBC 10-14 H (0) /HPF Urine WBC 30-49 H (0-4) /HPF Ur Squamous Epith Cells TRACE /LPF Urine Bacteria 1+ /LPF Urine Opiates Screen Not Detected (Not Detect) Ur Barbiturates Screen Not Detected (Not Detect) Ur Phencyclidine Scrn Not Detected (Not Detect) Ur Amphetamines Screen Not Detected (Not Detect) U Benzodiazepines Scrn Not Detected (Not Detect) Urine Cocaine Screen Not Detected (Not Detect) U Marijuana (THC) Screen Not Detected (Not Detect) COVID-19 (AILIN) (Negative) COVID-19 Clin Com 07/08/20 Range/Units 12:30 WBC (4.8-10.8) X10*3/uL RBC (4.60-5.80) X10*6/uL Hgb (14.0-18.0) g/dl Hct (42-52) % MCV (80-98) fL MCH (27.0-33.0) pg MCHC (31.0-36.0) g/dl RDW (11.0-16.0) % Plt Count (160-400) X10*3/uL MPV (9.4-12.4) fL Immature Gran % (Auto) (0.0-0.4) % Neut % (Auto) (45-73) % Lymph % (Auto) (20-40) % [place] % (Auto) (2-11) % Eos % (Auto) (0-4) % Baso % (Auto) (0-2) % Lymph # (Auto) (1.2-4.9) X10*3/uL [place] # (Auto) (0.1-1.2) X10*3/uL Eos # (Auto) (0.0-0.4) X10*3/uL Baso # (Auto) (0.0-0.2) X10*3/uL Abs Immat Gran (auto) (0.00-0.03) X10*3/uL Absolute Neuts (auto) (2.0-8.3) X10*3/uL Absolute Nucleated RBC (0.0-0.012) X10*3/uL Nucleated RBC % (auto) (0.0-0.2) /100WBC Smear Tech's Comments PT (10.8-13.0) SEC INR (0.9-1.1) APTT (24.1-38.0) SEC D-Dimer NG/ML Hold Blue Top Sodium (135-145) mmol/L Potassium (3.3-5.1) mmol/l Chloride (96-108) mmol/L Carbon Dioxide (22-29) mmol/L Anion Gap (12-20) BUN (9-16) mg/dL Creatinine (0.5-1.4) mg/dL Estim Creat Clear Calc Estimated GFR Random Glucose (60-115) mg/dL Lactic Acid (0.5-2.0) mmol/L Calcium (8.4-10.2) mg/dL Magnesium (1.6-2.6) mg/dL Total Bilirubin (0.0-1.0) mg/dL Direct Bilirubin (0.0-0.5) mg/dL AST (5-37) U/L ALT (0-40) U/L Alkaline Phosphatase (39-117) U/L Troponin I High Sens (<3.5-35.0) ng/L C-Reactive Protein (< or = 0.50) mg/dL B-Natriuretic Peptide (<100) pg/mL Total Protein (6.5-8.0) g/dL Albumin (3.5-5.0) g/dL Lipase (8-78) U/L Procalcitonin ng/mL Urine Color Urine Appearance Urine pH (5.0-8.0) Ur Specific Bulger (1.005-1.025) Urine Protein (NEG-TRACE) MG/DL Urine Glucose (UA) (NEG) MG/DL Urine Ketones (NEG) MG/DL Urine Blood (NEG) Urine Nitrite (NEG) Ur Leukocyte Esterase (NEG) Urine RBC (0) /HPF Urine WBC (0-4) /HPF Ur Squamous Epith Cells /LPF Urine Bacteria /LPF Urine Opiates Screen (Not Detect) Ur Barbiturates Screen (Not Detect) Ur Phencyclidine Scrn (Not Detect) Ur Amphetamines Screen (Not Detect) U Benzodiazepines Scrn (Not Detect) Urine Cocaine Screen (Not Detect) U Marijuana (THC) Screen (Not Detect) COVID-19 (AILIN) Negative (Negative) COVID-19 Clin Com See Note ECG Data ECG #1: Attestation: I personally reviewed and interpreted this ECG as follows: ECG interpretation date: 07/08/20 ECG interpretation time: 12:51 Interpretation: normal sinus rhythm, HR 80 bpm, non-specific ST and T wave abnormally in V2 and V3, normal DE interval, QTc 459 Critical Care Time Critical Care Time Critical Care Time: Yes Total Critical Care Time: 45 Attestation: I attest to the time spent caring for this critically ill patient, reviewing labs, imaging and reviewing case with it infrastructure consultant. Frequent bedside re-evaluations for persistent encephalopathy. Discharge Plan Discharge Clinical Impression: Acute diverticulitis, Acute metabolic encephalopathy, Sepsis, ROBERT (acute kidney injury) Patient Disposition: Admitted As Inpatient Prescriptions: No Action atorvastatin 80 mg tablet 1 tab PO DAILY RF: 0 lamotrigine 200 mg tablet 1 tab PO BID RF: 0 clonazepam 1 mg tablet 1 mg PO BID RF: 0 Hold Instructions: Resume on 07/06/20. Lethargic, on hold. clopidogrel 75 mg tablet 1 tab PO DAILY RF: 0 famotidine 20 mg tablet 1 tab PO BID RF: 0 metoprolol tartrate 50 mg tablet 1.5 tab PO BID RF: 0 gabapentin 100 mg capsule 1 cap PO BID RF: 0 Hold Instructions: Resume on 07/06/20. Lethargic, on hold albuterol sulfate 90 mcg/actuation HFA aerosol inhaler 2 puff inhalation Q4H PRN (Reason: wheezing) RF: 0 losartan 100 mg tablet 1 tab PO DAILY RF: 0 metformin 500 mg tablet extended release 24 hr 1 tab PO BID RF: 0 risperidone 0.5 mg tablet 1 tab PO BID PRN (Reason: Sleep) RF: 0 divalproex 250 mg tablet extended release 24 hr 1 tab PO DAILY RF: 0 duloxetine 60 mg capsule,delayed release(DR/EC) 1 cap PO DAILY RF: 0 cholecalciferol (vitamin D3) 50 mcg (2,000 unit) capsule 1 cap PO DAILY RF: 0 (DME) lancets [OneTouch Delica Plus Lancet] 30 gauge misc MISCELLANEOUS DAILY RF: 0 loperamide 2 mg capsule 2 mg PO 3XW PRN (Reason: Diarrhea) RF: 0 promethazine 25 mg tablet 1 tab PO DAILY PRN (Reason: Nausea And Vomiting) RF: 0 tamsulosin 0.4 mg Capsule 0.8 mg PO BEDTIME Qty: 30 RF: 0 finasteride 5 mg tablet 5 mg PO DAILY Qty: 30 RF: 0 amlodipine 10 mg tablet 10 mg PO DAILY Qty: 30 RF: 0 Probiotic 15 billion cell capsule, sprinkle 1 cap PO DAILY Qty: 30 RF: 0
[2020-07-08 12:18] LABS: Basophils Percent Auto 0.3 % (0-2); Eosinophils Percent Auto 0.2 % (0-4); Hemoglobin 13.1 g/dl (14.0-18.0); Imm Gran Abs Auto 0.04 X10*3/uL (0.00-0.03); Imm Gran Pct Auto 0.3 % (0.0-0.4); Lymphocytes Absolute Auto 2.1 X10*3/uL (1.2-4.9); Lymphocytes Percent Auto 15.2 % (20-40); MANUAL DIFF FLAG SCAN; Mean Corpuscular HGB Conc 32.8 g/dl (31.0-36.0); Mean Corpuscular Hemoglobin 30.3 pg (27.0-33.0); Mean Corpuscular Volume 92.4 fL (80-98); Mean Platelet Volume 9.9 fL (9.4-12.4); Monocytes Percent Auto 15.1 % (2-11); Neutrophils Absolute Auto 9.3 X10*3/uL (2.0-8.3); Neutrophils Percent Auto 68.9 % (45-73); Platelet Count 333 X10*3/uL (160-400); Red Blood Count 4.33 X10*6/uL (4.60-5.80); Red Cell Distribution Width 13.1 % (11.0-16.0); SCAN SMEAR FLAG 1; White Blood Count 13.5 X10*3/uL (4.8-10.8)
[2020-07-08 12:21] LABS: INTERNATIONAL NORM RATIO 1.2 (0.9-1.1)
[2020-07-08] MEDS: cefTRIAXone sodium 1 GM in 0.9 % Sodium Chloride 50 ML IV (12:23)
[2020-07-08 12:24] LABS: D Dimer 221 NG/ML; Partial Thromboplastin Time 30.8 SEC (24.1-38.0)
[2020-07-08 12:42] LABS: Glucose Urine UA NEG (NEG); Leukocyte Esterase Urine 1+ (NEG); Nitrite Urine NEG (NEG); PH 5.5 (5.0-8.0); Specific Gravity - Urine >= 1.030 (1.005-1.025); Urine Blood 3+ (NEG); Urine Ketones NEG (NEG); Urine Protein TRACE MG/DL (NEG-TRACE)
[2020-07-08 12:43] LABS: Appearance Urine CLOUDY; Color Urine YELLOW
[2020-07-08 12:46] LABS: Lactic Acid 2.5 mmol/L (0.5-2.0)
[2020-07-08 12:47] LABS: Alanine Aminotransferase 7 U/L (0-40); Albumin Level 4.1 g/dL (3.5-5.0); Alkaline Phosphatase 50 U/L (39-117); Anion Gap 18 (12-20); Aspartate Amino Transferase 9 U/L (5-37); Bilirubin Direct 0.3 mg/dL (0.0-0.5); Bilirubin Total 0.7 mg/dL (0.0-1.0); Blood Urea Nitrogen 52 mg/dL (9-16); Calcium 8.8 mg/dL (8.4-10.2); Carbon Dioxide 24 mmol/L (22-29); Chloride 107 mmol/L (96-108); Creatinine Clr Calc Pharmacy 64.2; Estimated Glomerular Filt Rate 37; Glucose Random 111 mg/dL (60-115); Potassium 3.6 mmol/l (3.3-5.1); Sodium 145 mmol/L (135-145); Total Protein 6.7 g/dL (6.5-8.0)
[2020-07-08 12:48] LABS: C Reactive Protein 7.85 mg/dL (< or = 0.50); Lipase 12 U/L (8-78); Magnesium 2.3 mg/dL (1.6-2.6)
[2020-07-08 12:49] LABS: B Type Natriuretic Peptide 11 pg/mL (<100); Troponin-I High Sensitivity 7.2 ng/L (<3.5-35.0)
[2020-07-08 13:02] LABS: Bacteria Urine 1+ /LPF; Squamous Epithelial Cell Urine TRACE /LPF; WBC Urine 30-49 /HPF (0-4)
[2020-07-08 13:11] LABS: COVID-19 Test Negative (Negative)
[2020-07-08 13:11] LABS: Amphetamine Screen Urine Not Detected (Not Detect); Barbiturates, Urine Not Detected (Not Detect); Benzodiazepines Screen Urine Not Detected (Not Detect); Cannabinoid Screen Urine Not Detected (Not Detect); Cocaine Screen Urine Not Detected (Not Detect); Opiate Screen Urine Not Detected (Not Detect); Phencyclidine Screen Urine Not Detected (Not Detect)
[2020-07-08 13:33] LABS: Procalcitonin 0.45 ng/mL
[2020-07-08 13:34] LABS: SLIDE REVIEW VERIFIED
[2020-07-08 14:13] LABS: Reflex Lactate? Lactic Acid Added
[2020-07-08] MEDS: metroNIDAZOLE/NS 500 MG/100 ML PIGGYBACK 100 MG IV ×2 (14:34→22:54)
--- NOTE | 2020-07-08 15:33 | PC.NURSE ---
Pt continues to sleep, moves and opens eyes sl with moevement or loud verbal stimuli. rectal tube placed by staff attorney, loose stool noted in tube at this time, not enough in tube/bag for collection at this time. Vitals stable. Flagyl and NS has completed. NSR on monitor
--- NOTE | 2020-07-08 15:45 | PC.NURSE ---
Spoke with Nelia () and updated
--- NOTE | 2020-07-08 16:16 | PM.CNGS ---
History of Present Illness Consult details Consult date: 07/08/20 Narrative: 64-year-old male with multiple medical problems including cognitive dysfunction, dementia had hypertension, [facility] the [facility] today [facility] because of lethargy. The patient actually was admitted to the hospital last June by Dr. Way for a diverticular abscess. This was a small abscess at that time which was managed non operatively will antibiotics. The patient was eventually discharged to the [facility] last July 02. He had periods of lethargy here in the hospital during that admission as well. Furthermore, his oral intake was also inconsistent. He apparently has was eating yesterday but today seemed to be more lethargic than usual so he was sent back to the emergency room. He had a CAT scan done showing the diverticular abscess to be larger in size. The patient however the not seem to have complained of significant abdominal pain. There is no documented fever or chills. The patient also had urinary tension and required a Byrd catheter prior to discharge. Review of Systems Review of Systems: Yes Unobtainable due to mental status PMFSH Past Medical History Medical History Anxiety BPH (benign prostatic hyperplasia) Coronary artery disease COVID-19 Diabetes High blood cholesterol Hyperlipidemia Intracranial atherosclerosis Stroke Family History Family History Other Coronary artery disease Diabetes Surgical History Surgical History H/O neck surgery History of heart artery stent Social History Social History Household Members: Family Housing: Assisted Living Facility Alcohol intake: never Smoking Status: Never smoker Advance Directives: No Advance Directives Information Provided: Yes service: No Current occupational status: unemployed Meds Allergies Allergy/AdvReac Type Severity Reaction Status Date / Time lisinopril [LISINOPRIL] Allergy Unknown MUSCLE Verified 06/01/20 11:58 ACHES pregabalin [From LYRICA] Allergy Unknown UNKNOWN Verified 06/01/20 11:58 Home Medications Medication Instructions Recorded Confirmed Type albuterol sulfate 2 puff INHALATION Q4H PRN 06/19/20 06/19/20 History atorvastatin 1 tab PO DAILY 06/19/20 06/19/20 History cholecalciferol (vitamin D3) 1 cap PO DAILY 06/19/20 06/19/20 History clonazepam 1 mg PO BID 06/19/20 06/19/20 History clopidogrel 1 tab PO DAILY 06/19/20 06/19/20 History divalproex 1 tab PO DAILY 06/19/20 06/19/20 History duloxetine 1 cap PO DAILY 06/19/20 06/19/20 History famotidine 1 tab PO BID 06/19/20 06/19/20 History gabapentin 1 cap PO BID 06/19/20 06/19/20 History lamotrigine 1 tab PO BID 06/19/20 06/19/20 History lancets [OneTouch Delica Plus 06/19/20 06/19/20 History Lancet] loperamide 2 mg PO 3XW PRN 06/19/20 06/19/20 History losartan 1 tab PO DAILY 06/19/20 06/19/20 History metformin 1 tab PO BID 06/19/20 06/19/20 History metoprolol tartrate 1.5 tab PO BID 06/19/20 06/19/20 History promethazine 1 tab PO DAILY PRN 06/19/20 06/19/20 History risperidone 1 tab PO BID PRN 06/19/20 06/19/20 History Physical Exam Vital Signs: Vital Signs: Last Vital Signs Temp 99.8 F 07/08/20 11:24 Pulse 79 07/08/20 15:31 Resp 16 07/08/20 15:31 BP 110/61 07/08/20 15:31 Pulse Ox 100 07/08/20 15:31 Body Mass Index 56.6 Const: Other: Lethargic, not in distress Resp: Effort & Inspection: normal respiratory effort Cardio: Rate: regular rate Rhythm: regular rhythm GI: Other: Nondistended, no guarding, no rebound, no obvious tenderness on deep palpation Palpation (GI): Soft to palpation Neuro: Other: Lethargic, nonverbal Extrem: General: No edema Results Labs Result diagrams: 07/08/20 11:55 07/08/20 11:57 Labs: Abnormal lab results 07/08/20 07/08/20 07/08/20 Range/Units 11:55 11:55 11:55 WBC 13.5 H (4.8-10.8) X10*3/uL RBC 4.33 L (4.60-5.80) X10*6/uL Hgb 13.1 L (14.0-18.0) g/dl Hct 40.0 L (42-52) % Lymph % (Auto) 15.2 L (20-40) % [place] % (Auto) 15.1 H (2-11) % [place] # (Auto) 2.0 H (0.1-1.2) X10*3/uL Abs Immat Gran (auto) 0.04 H (0.00-0.03) X10*3/uL Absolute Neuts (auto) 9.3 H (2.0-8.3) X10*3/uL PT 14.0 H (10.8-13.0) SEC INR 1.2 H (0.9-1.1) BUN (9-16) mg/dL Creatinine (0.5-1.4) mg/dL Lactic Acid 2.5 H* (0.5-2.0) mmol/L C-Reactive Protein (< or = 0.50) mg/dL Ur Specific [place] (1.005-1.025) Urine Blood (NEG) Ur Leukocyte Esterase (NEG) Urine RBC (0) /HPF Urine WBC (0-4) /HPF 07/08/20 07/08/20 07/08/20 Range/Units 11:55 11:55 11:57 WBC (4.8-10.8) X10*3/uL RBC (4.60-5.80) X10*6/uL Hgb (14.0-18.0) g/dl Hct (42-52) % Lymph % (Auto) (20-40) % [place] % (Auto) (2-11) % [place] # (Auto) (0.1-1.2) X10*3/uL Abs Immat Gran (auto) (0.00-0.03) X10*3/uL Absolute Neuts (auto) (2.0-8.3) X10*3/uL PT (10.8-13.0) SEC INR (0.9-1.1) BUN 52 H (9-16) mg/dL Creatinine 1.84 H (0.5-1.4) mg/dL Lactic Acid (0.5-2.0) mmol/L C-Reactive Protein 7.85 H (< or = 0.50) mg/dL Ur Specific [place] >= 1.030 H (1.005-1.025) Urine Blood 3+ H (NEG) Ur Leukocyte Esterase 1+ H (NEG) Urine RBC 10-14 H (0) /HPF Urine WBC 30-49 H (0-4) /HPF Short CBC 07/08/20 Range/Units 11:55 WBC 13.5 H (4.8-10.8) X10*3/uL Hgb 13.1 L (14.0-18.0) g/dl Hct 40.0 L (42-52) % Plt Count 333 (160-400) X10*3/uL BMP 07/08/20 11:57 Sodium 145 Potassium 3.6 Chloride 107 Carbon Dioxide 24 BUN 52 H Creatinine 1.84 H Calcium 8.8 Liver Function 07/08/20 Range/Units 11:57 Total Bilirubin 0.7 (0.0-1.0) mg/dL Direct Bilirubin 0.3 (0.0-0.5) mg/dL AST 9 (5-37) U/L ALT 7 (0-40) U/L Alkaline Phosphatase 50 (39-117) U/L Albumin 4.1 (3.5-5.0) g/dL Urine 07/08/20 Range/Units 11:55 Urine Color YELLOW Urine Appearance CLOUDY Urine pH 5.5 (5.0-8.0) Ur Specific [place] >= 1.030 H (1.005-1.025) Urine Protein TRACE (NEG-TRACE) MG/DL Urine Glucose (UA) NEG (NEG) MG/DL All other labs normal. Assessment and Plan (1) Colonic diverticular abscess: Status: Acute 64-year-old male admitted because of lethargy. He has a known recent diverticular abscess. A follow-up CT scan was therefore done in the emergency room. The diverticular abscess appears to be bigger at up to 7 cm in diameter. The patient has a benign abdominal exam. He does not appear septic. He does have a history of altered mental status and lethargy even on his last admission. I am uncertain as this is related to his diverticular abscess. We will discuss the films with the radiologist to see if his this amenable to IR drainage. I have reviewed the CT images myself and it appears that there are small bowel loops overlying the abscess that may prevent safe drainage via Interventional Radiology. Review of his labs also show that he likely has a urinary tract infection with large amount of wbc's in his urine. He has had a Byrd catheter and this may need to be changed. His elevated BUN/creatinine also suggest he is significantly dehydrated. He had been on Zosyn on his last admission so it may be prudent to switch him to Levaquin and Flagyl for now. He should be tested for C diff as well as has been on antibiotics for a prolonged period of time. We will follow closely while he is in the hospital. Will update his sister Magdalena and December. I will also inform Dr. Way of this admission.
--- NOTE | 2020-07-08 16:36 | P.HPHOSP_ITS ---
History of Present Illness Date of Service: 07/08/20 Chief Complaint: Altered mentation, fall, diarrhea A 64 years old male with PMH of CAD, stroke, diabetes, BPH among others who presented to the hospital from home with diarrhea, fall and altered mentation. The patient was recently discharged from the hospital after being treated for diverticulitis and abscess by surgical team. He went to SNF and came back home yesterday. This morning his noticed that he has multiple episode of diarrhea requiring usage of Imodium and while he was going to the bathroom he fell and hit his head. He looks more tired for her and has become almost nonverbal at all. In the emergency he was found to have acute kidney injury with elevated creatinine along with atelectasis bilaterally in his lungs and worsening of the abscess on CT scan of the abdomen and pelvis. Discussed with the surgical team and admitted to the hospital for further evaluation and treatment. Review of Systems Review of Systems: Patient nonverbal [facility] Medical History Anxiety BPH (benign prostatic hyperplasia) Coronary artery disease COVID-19 Diabetes High blood cholesterol Hyperlipidemia Intracranial atherosclerosis Stroke Family History Other Coronary artery disease Diabetes Surgical History H/O neck surgery History of heart artery stent Social History Household Members: Family Housing: Assisted Living Facility Alcohol intake: never Smoking Status: Never smoker Advance Directives: No Advance Directives Information Provided: Yes service: No Current occupational status: unemployed Meds Allergies Allergy/AdvReac Type Severity Reaction Status Date / Time lisinopril [LISINOPRIL] Allergy Unknown MUSCLE Verified 06/01/20 11:58 ACHES pregabalin [From LYRICA] Allergy Unknown UNKNOWN Verified 06/01/20 11:58 Home Medications Medication Instructions Recorded Confirmed Type albuterol sulfate 2 puff INHALATION Q4H PRN 06/19/20 06/19/20 History atorvastatin 1 tab PO DAILY 06/19/20 06/19/20 History cholecalciferol (vitamin D3) 1 cap PO DAILY 06/19/20 06/19/20 History clonazepam 1 mg PO BID 06/19/20 06/19/20 History clopidogrel 1 tab PO DAILY 06/19/20 06/19/20 History divalproex 1 tab PO DAILY 06/19/20 06/19/20 History duloxetine 1 cap PO DAILY 06/19/20 06/19/20 History famotidine 1 tab PO BID 06/19/20 06/19/20 History gabapentin 1 cap PO BID 06/19/20 06/19/20 History lamotrigine 1 tab PO BID 06/19/20 06/19/20 History lancets [OneTouch Delica Plus 06/19/20 06/19/20 History Lancet] loperamide 2 mg PO 3XW PRN 06/19/20 06/19/20 History losartan 1 tab PO DAILY 06/19/20 06/19/20 History metformin 1 tab PO BID 06/19/20 06/19/20 History metoprolol tartrate 1.5 tab PO BID 06/19/20 06/19/20 History promethazine 1 tab PO DAILY PRN 06/19/20 06/19/20 History risperidone 1 tab PO BID PRN 06/19/20 06/19/20 History Physical Exam Vital Signs and Narrative: Vital Signs: Last Vital Signs Temp 99.8 F 07/08/20 11:24 Pulse 79 07/08/20 15:31 Resp 16 07/08/20 15:31 BP 110/61 07/08/20 15:31 Pulse Ox 100 07/08/20 15:31 Body Mass Index 56.6 Constitutional : Response only to with Stimulation, cannot assess orien tation, lethargic and tired Neck : Normal inspection, Supple Cardiovascular : RRR, S1 S2, no lower extremity edema Respiratory : Decreased bilateral air entry, no crackles, wheezes or rhonchi Gastrointestinal: soft, lax, Normal bowel sounds, Non tender Skin : Warm/Dry, No rash Neurological : Lethargic, sleepy, wakes up with stimulation, No focal deficit Results Labs CBC and Chem 7: 07/08/20 11:55 07/08/20 11:57 Labs: Laboratory Results - last 24 hr 07/08/20 07/08/20 07/08/20 11:55 11:55 11:55 MCV 92.4 MCH 30.3 MCHC 32.8 RDW 13.1 Plt Count 333 MPV 9.9 Immature Gran % (Auto) 0.3 Neut % (Auto) 68.9 Lymph % (Auto) 15.2 L [place] % (Auto) 15.1 H Eos % (Auto) 0.2 Baso % (Auto) 0.3 Lymph # (Auto) 2.1 [place] # (Auto) 2.0 H Eos # (Auto) 0.0 Baso # (Auto) 0.0 Abs Immat Gran (auto) 0.04 H Absolute Neuts (auto) 9.3 H Absolute Nucleated RBC 0.000 Nucleated RBC % (auto) 0.0 Smear Tech's Comments VERIFIED PT 14.0 H INR 1.2 H APTT 30.8 D-Dimer 221 Hold Blue Top SEE NOTE Anion Gap Estim Creat Clear Calc Estimated GFR Random Glucose Lactic Acid 2.5 H* Calcium Magnesium Total Bilirubin Direct Bilirubin AST ALT Alkaline Phosphatase Troponin I High Sens C-Reactive Protein B-Natriuretic Peptide Total Protein Albumin Lipase Procalcitonin Urine Color Urine Appearance Urine pH Ur Specific [place] Urine Protein Urine Glucose (UA) Urine Ketones Urine Blood Urine Nitrite Ur Leukocyte Esterase Urine RBC Urine WBC Ur Squamous Epith Cells Urine Bacteria Urine Opiates Screen Ur Barbiturates Screen Ur Phencyclidine Scrn Ur Amphetamines Screen U Benzodiazepines Scrn Urine Cocaine Screen U Marijuana (THC) Screen COVID-19 (AILIN) COVID-19 Clin Com 07/08/20 07/08/20 07/08/20 11:55 11:55 11:55 MCV MCH MCHC RDW Plt Count MPV Immature Gran % (Auto) Neut % (Auto) Lymph % (Auto) [place] % (Auto) Eos % (Auto) Baso % (Auto) Lymph # (Auto) [place] # (Auto) Eos # (Auto) Baso # (Auto) Abs Immat Gran (auto) Absolute Neuts (auto) Absolute Nucleated RBC Nucleated RBC % (auto) Smear Tech's Comments PT INR APTT D-Dimer Hold Blue Top Anion Gap Estim Creat Clear Calc Estimated GFR Random Glucose Lactic Acid Calcium Magnesium 2.3 Total Bilirubin Direct Bilirubin AST ALT Alkaline Phosphatase Troponin I High Sens 7.2 C-Reactive Protein 7.85 H B-Natriuretic Peptide 11 Total Protein Albumin Lipase 12 Procalcitonin 0.45 Urine Color Urine Appearance Urine pH Ur Specific [place] Urine Protein Urine Glucose (UA) Urine Ketones Urine Blood Urine Nitrite Ur Leukocyte Esterase Urine RBC Urine WBC Ur Squamous Epith Cells Urine Bacteria Urine Opiates Screen Ur Barbiturates Screen Ur Phencyclidine Scrn Ur Amphetamines Screen U Benzodiazepines Scrn Urine Cocaine Screen U Marijuana (THC) Screen COVID-19 (AILIN) COVID-19 Clin Com 07/08/20 07/08/20 07/08/20 11:55 11:55 11:57 MCV MCH MCHC RDW Plt Count MPV Immature Gran % (Auto) Neut % (Auto) Lymph % (Auto) [place] % (Auto) Eos % (Auto) Baso % (Auto) Lymph # (Auto) [place] # (Auto) Eos # (Auto) Baso # (Auto) Abs Immat Gran (auto) Absolute Neuts (auto) Absolute Nucleated RBC Nucleated RBC % (auto) Smear Tech's Comments PT INR APTT D-Dimer Hold Blue Top Anion Gap 18 Estim Creat Clear Calc 64.2 Estimated GFR 37 Random Glucose 111 Lactic Acid Calcium 8.8 Magnesium Total Bilirubin 0.7 Direct Bilirubin 0.3 AST 9 ALT 7 Alkaline Phosphatase 50 Troponin I High Sens C-Reactive Protein B-Natriuretic Peptide Total Protein 6.7 Albumin 4.1 Lipase Procalcitonin Urine Color YELLOW Urine Appearance CLOUDY Urine pH 5.5 Ur Specific [place] >= 1.030 H Urine Protein TRACE Urine Glucose (UA) NEG Urine Ketones NEG Urine Blood 3+ H Urine Nitrite NEG Ur Leukocyte Esterase 1+ H Urine RBC 10-14 H Urine WBC 30-49 H Ur Squamous Epith Cells TRACE Urine Bacteria 1+ Urine Opiates Screen Not Detected Ur Barbiturates Screen Not Detected Ur Phencyclidine Scrn Not Detected Ur Amphetamines Screen Not Detected U Benzodiazepines Scrn Not Detected Urine Cocaine Screen Not Detected U Marijuana (THC) Screen Not Detected COVID-19 (AILIN) COVID-19 Clin Com 07/08/20 12:30 MCV MCH MCHC RDW Plt Count MPV Immature Gran % (Auto) Neut % (Auto) Lymph % (Auto) [place] % (Auto) Eos % (Auto) Baso % (Auto) Lymph # (Auto) [place] # (Auto) Eos # (Auto) Baso # (Auto) Abs Immat Gran (auto) Absolute Neuts (auto) Absolute Nucleated RBC Nucleated RBC % (auto) Smear Tech's Comments PT INR APTT D-Dimer Hold Blue Top Anion Gap Estim Creat Clear Calc Estimated GFR Random Glucose Lactic Acid Calcium Magnesium Total Bilirubin Direct Bilirubin AST ALT Alkaline Phosphatase Troponin I High Sens C-Reactive Protein B-Natriuretic Peptide Total Protein Albumin Lipase Procalcitonin Urine Color Urine Appearance Urine pH Ur Specific [place] Urine Protein Urine Glucose (UA) Urine Ketones Urine Blood Urine Nitrite Ur Leukocyte Esterase Urine RBC Urine WBC Ur Squamous Epith Cells Urine Bacteria Urine Opiates Screen Ur Barbiturates Screen Ur Phencyclidine Scrn Ur Amphetamines Screen U Benzodiazepines Scrn Urine Cocaine Screen U Marijuana (THC) Screen COVID-19 (AILIN) Negative COVID-19 Clin Com See Note Imaging Radiologist's Impressions: Impressions Head CT 07/08/20 11:38 IMPRESSION: No acute intracranial abnormality. Chest X-Ray 07/08/20 11:39 IMPRESSION: Atelectasis or small infiltrate at the left lung base. Abdomen/Pelvis CT 07/08/20 11:50 IMPRESSION: 1. Subsegmental dependent atelectasis of both lower lobes. 2. Persistent sigmoid diverticulitis with pericolonic abscess which is increased in size. Chest CT 07/08/20 11:50 IMPRESSION: 1. Subsegmental dependent atelectasis of both lower lobes. 2. Persistent sigmoid diverticulitis with pericolonic abscess which is increased in size. Assessment and Plan (1) Acute metabolic encephalopathy: Status: Acute (2) ROBERT (acute kidney injury): Status: Acute (3) 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 hyperplasia: Status: Acute (4) Hypertension: Status: Acute (5) Colonic diverticular abscess: Status: Acute (6) Fall: Status: Acute (7) Sepsis: Qualifiers: Sepsis acute organ dysfunction status: with acute organ dysfunction Sepsis type: sepsis due to unspecified organism Severe sepsis acute organ dysfunction type: encephalopathy Severe sepsis shock status: without septic shock Qualified Code(s): A41.9 - Sepsis, unspecified organism; R65.20 - Severe sepsis without septic shock; G93.40 - Encephalopathy, unspecified Status: Acute A 64 years old male with PMH of CAD, stroke, diabetes, BPH among others who presented to the hospital from home with diarrhea, fall and altered mentation. Sepsis Diverticular abscess Has elevated WBCs and lactic acid Pending C diff test CT scan showing worsening abscess Start with Flagyl only at this point Start IV fluid Advanced diet as tolerated Surgery consult Acute kidney injury Seems to be prerenal with BUN to creatinine ratio more than 20 Creatinine to 1.8 from baseline of 0.7 Start gentle hydration for now Monitor intake and output Atelectasis Secondary to body habitus and decrease activity To do incentive spirometry when more awake Watch for signs of pneumonia Diabetes Hold metformin Fall PT eval prior to d/c CAD s/p stent Continue Plavix, statin, metoprolol Hypertension Continue losartan, metoprolol BPH Continue Flomax Mood Continue risperidone, lamotrigine, duloxetine, Depakote, clonazepam DVT PPx Heparin
[2020-07-08 17:10] LABS: ~Lactic Acid-LAB USE ONLY 1.3 mmol/L (0.5-2.0)
[2020-07-08] MEDS: Heparin Sodium,Porcine 5,000 UNIT/ML VIAL 5000 UNIT SUBCUT (18:13)
[2020-07-08] MEDS: 0.9 % Sodium Chloride 1,000 ML 75 ML IVCONT (18:16)
[2020-07-09] VITALS (7 sets, daily range): BP systolic 129–178; BP diastolic 72–89; PULSE 67–103; RESP 15–19; TEMP 36.3–36.6; O2SAT 98
[2020-07-09] MEDS: Heparin Sodium,Porcine 5,000 UNIT/ML VIAL 5000 UNIT SUBCUT ×2 (04:26→15:25)
[2020-07-09 06:22] LABS: Hematocrit 37.4 % (42-52); Hemoglobin 11.9 g/dl (14.0-18.0); Mean Corpuscular HGB Conc 31.8 g/dl (31.0-36.0); Mean Corpuscular Hemoglobin 29.2 pg (27.0-33.0); Mean Corpuscular Volume 91.7 fL (80-98); Mean Platelet Volume 9.8 fL (9.4-12.4); Platelet Count 256 X10*3/uL (160-400); Red Blood Count 4.08 X10*6/uL (4.60-5.80); Red Cell Distribution Width 12.8 % (11.0-16.0)
[2020-07-09 06:27] LABS: INTERNATIONAL NORM RATIO 1.1 (0.9-1.1); Prothrombin Time 13.2 SEC (10.8-13.0)
[2020-07-09] MEDS: metroNIDAZOLE/NS 500 MG/100 ML PIGGYBACK 100 MG IV ×3 (06:30→23:01)
[2020-07-09] MEDS: 0.9 % Sodium Chloride 1,000 ML 75 ML IVCONT (06:44)
[2020-07-09 06:50] LABS: Anion Gap 15 (12-20); Blood Urea Nitrogen 27 mg/dL (9-16); Calcium 8.4 mg/dL (8.4-10.2); Carbon Dioxide 25 mmol/L (22-29); Chloride 110 mmol/L (96-108); Creatinine Clr Calc Pharmacy 149.6; Estimated Glomerular Filt Rate > 60; Glucose Random 106 mg/dL (60-115); Potassium 3.4 mmol/l (3.3-5.1); Sodium 147 mmol/L (135-145)
--- NOTE | 2020-07-09 07:54 | PM.PNGS ---
Subjective Subjective Date of Service: 07/09/20 Interval history: Sleepy but wakes up to voice. Denies any abdominal pain at this time. Does not feel hungry. Physical Exam Vital Signs: Vital Signs: Last Vital Signs Temp 97.3 F 07/09/20 07:22 Pulse 87 07/09/20 07:22 Resp 16 07/09/20 07:22 BP 129/72 07/09/20 07:22 Pulse Ox 98 07/09/20 07:22 Body Mass Index 56.6 Const: General: lethargic and tired appearing Orientation/consciousness: lethargic Eyes: Other: Normal sclera Resp: Other: Breathing comfortably on room air, no wheezing GI: Other: Soft, nondistended, nontender to deep palpation, no rebound or guarding Skin: Other: Dry, no rash Extrem: Other: No edema Psych: Affect: Blunted affect present Progress Note: A&P Assessment and plan (1) Acute metabolic encephalopathy: Status: Acute Assessment and Plan: Patient returns to the hospital with reports of mental status changes, readmitted to hospitalist service for further management. Similar episodes of obtundation during his previous admission. In discussion with his previously he had similar episodes at home. Etiology is unclear. Patient is more awake this morning, answering questions but still very sleepy. (2) Colonic diverticular abscess: Status: Acute Assessment and Plan: CT reviewed and larger collection of air/fluid noted in the left lower quadrant, contained by the mesentery. No free air is appreciated. This was previously evaluated by Interventional Radiology in felt to be in a difficult location to reach percutaneously. Patient and family were not interested abdominal exploration unless absolutely necessary. Abdominal examination today remains benign with no peritoneal signs. WBC is return to normal with hydration and antibiotics. Will monitor clinical examination during this hospitalization. Fall Risk Details Current Medications: Current Medications Generic Name Dose Route Start Last Admin Trade Name Freq PRN Reason Stop Dose Admin Acetaminophen 650 mg 07/08/20 16:23 Acetaminophen 325 Mg Tablet PO Q6H PRN Pain, Mild (Pain Scale 1-3) Heparin Sodium (Porcine) 5,000 unit 07/08/20 16:30 07/09/20 04:26 Heparin Sodium,Porcine 5,000 Unit/Ml Vial SUBCUT 5,000 unit Q12H AARON Administration Sodium Chloride 1,000 mls @ 75 mls/hr 07/08/20 16:30 07/09/20 06:44 Ns IVCONT 75 mls/hr .[id number] AARON Administration Metronidazole 500 mg in 100 mls @ 100 mls/hr 07/08/20 23:00 07/09/20 07:33 Flagyl IV Infused Q8H AARON Infusion Lamotrigine 200 mg 07/08/20 21:00 07/08/20 20:50 Lamotrigine 100 Mg Tablet PO Not Given BID AARON Ondansetron HCl 4 mg 07/08/20 16:23 Ondansetron Hcl 4 Mg/2 Ml Vial IVPUSH Q8H PRN Nausea and Vomiting Sodium Chloride 3 ml 07/09/20 00:00 07/08/20 22:55 0.9 % Sodium Chloride Flush 3 Ml Syringe IVFLUSH Not Given QSHIFT AARON Time Spent With Patient Time: Total time spent is greater than 50% in coordination of care (as documented) at patient's floor/unit and/or counseling patient: Time with patient: 25 - 35 minutes
[2020-07-09 08:15] LABS: Glucose, Whole Blood 103 mg/dL (60-115)
[2020-07-09 08:47] LABS: CDIFF Ag Negative (Negative); CDIFF Internal ctrl Dots and bkg OK (V); CDiff Toxin Negative (Negative)
--- NOTE | 2020-07-09 08:57 | P.CDIC_ITS ---
CDI Concurrent Query Service Date: 07/09/20 Documentation Clarification: Please clarify if you are treating a proba ble/suspected/likely or confirmed: Body mass index: Morbid obesity Please specify if known Provider Response: Morbid Obesity PLEASE DO NOT DELETE/MODIFY EXISTING CONTENT Additional information is needed in order to code to the highest accuracy and appropriate Severity of Illness (SOI). Please clarify the information noted below in your progress notes and discharge summary. Risk Factors/Clinical Indicators/Treatments BMI 56.6 Atelectasis 2nd to body habitus and decreased activity. CDS: Neli Chapman CCS, CDIS Contact Number: [phone] Please Review the information above and exercise your independent professional judgment in responding to the query. If you concur, pleas document in the PROGRESS NOTES and DISCHARGE SUMMARY. If you do not agree with the query, please document in the query above. THIS QUERY IS PART OF THE PERMANENT MEDICAL RECORD
[2020-07-09] MEDS: Dextrose 5 % and 0.45 % NaCl 1,000 ML 75 ML IVCONT ×2 (10:04→23:01)
[2020-07-09] MEDS: Divalproex Sodium ER 250 MG TAB.ER.24H PO (11:05)
[2020-07-09] MEDS: lamoTRIgine 100 MG TABLET 200 MG PO ×2 (11:05→21:20)
[2020-07-09 11:42] LABS: Glucose, Whole Blood 130 mg/dL (60-115)
--- NOTE | 2020-07-09 14:03 | HO.PM.IMPN ---
Subjective Subjective Date of Service: 07/09/20 Interval History: the patient was seen and evaluated this morning Laying in bed, he respond to verbal and physical stimulation, more awake today Still non verbal to communicate to the complaints No reported other overnight events. Systemic review: Nonverbal Physical Exam Vital Signs: Vital Signs: Last Vital Signs Temp 97.9 F 07/09/20 11:25 Pulse 98 07/09/20 11:25 Resp 15 07/09/20 11:25 BP 130/75 07/09/20 11:25 Pulse Ox 98 07/09/20 11:25 Body Mass Index 56.6 Constitutional : Response only to with Stimulation, cannot assess orientation, lethargic and tired Neck : Normal inspection, Supple Cardiovascular : RRR, S1 S2, no lower extremity edema Respiratory : Decreased bilateral air entry, no crackles, wheezes or rhonchi Gastrointestinal: soft, lax, Normal bowel sounds, Non tender Skin : Warm/Dry, No rash Neurological : Lethargic, sleepy, wakes up with stimulation, No focal deficit Objective Data Current Medications Generic Name Dose Route Start Last Admin Trade Name Tomerq PRN Reason Stop Dose Admin Acetaminophen 650 mg 07/08/20 16:23 Acetaminophen 325 Mg Tablet PO Q6H PRN Pain, Mild (Pain Scale 1-3) Albuterol Sulfate 2 puff 07/09/20 08:29 Albuterol Sulfate 90 Mcg 8 Gm Inhaler INHALE Q4H PRN Shortness Of Breath Amlodipine Besylate 5 mg 07/09/20 09:00 07/09/20 11:04 Amlodipine Besylate 5 Mg Tablet PO Not Given DAILY AARON Protocol Atorvastatin Calcium 80 mg 07/09/20 21:00 Atorvastatin Calcium 80 Mg Tablet PO BEDTIME AARON Clonazepam 0.5 mg 07/09/20 21:00 Clonazepam 1 Mg Tablet PO BEDTIME AARON Clopidogrel Bisulfate 75 mg 07/10/20 09:00 Clopidogrel Bisulfate 75 Mg Tablet PO DAILY AARON Divalproex Sodium 250 mg 07/09/20 09:00 07/09/20 11:05 Divalproex Sodium Er 250 Mg Tab.Er.24h PO 250 mg DAILY AARON Administration Duloxetine HCl 60 mg 07/09/20 09:00 07/09/20 11:05 Duloxetine Hcl 60 Mg Capsule.Dr PO Not Given DAILY AARON Famotidine 20 mg 07/09/20 09:00 07/09/20 11:05 Famotidine 20 Mg Tablet PO Not Given BID [facility] Heparin Sodium (Porcine) 5,000 unit 07/08/20 16:30 07/09/20 04:26 Heparin Sodium,Porcine 5,000 Unit/Ml Vial SUBCUT 5,000 unit Q12H AARON Administration Metronidazole 500 mg in 100 mls @ 100 mls/hr 07/08/20 23:00 07/09/20 14:02 Flagyl IV 100 mls/hr Q8H AARON Administration Dextrose/Sodium Chloride 1,000 mls @ 75 mls/hr 07/09/20 08:30 07/09/20 10:04 D51/2ns IVCONT 75 mls/hr .[id number] AARON Administration Lamotrigine 200 mg 07/08/20 21:00 07/09/20 11:05 Lamotrigine 100 Mg Tablet PO 200 mg BID AARON Administration Metoprolol Tartrate 75 mg 07/09/20 09:00 07/09/20 11:06 Metoprolol Tartrate 50 Mg Tablet PO Not Given BID [facility] Protocol Ondansetron HCl 4 mg 07/08/20 16:23 Ondansetron Hcl 4 Mg/2 Ml Vial IVPUSH Q8H PRN Nausea and Vomiting Sodium Chloride 3 ml 07/09/20 00:00 07/09/20 08:38 0.9 % Sodium Chloride Flush 3 Ml Syringe IVFLUSH Not Given QSHIFT [facility] Tamsulosin HCl 0.8 mg 07/09/20 21:00 Tamsulosin Hcl 0.4 Mg Capsule PO BEDTIME [facility] Labs CBC & Chem 7: 07/09/20 05:54 07/09/20 05:54 Microbiology Microbiology Results: Microbiology 07/08/20 11:53 Urine [place] Urine Culture - Final Assessment and Plan (1) Acute metabolic encephalopathy: Status: Acute (2) ROBERT (acute kidney injury): Status: Acute (3) 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 hyperplasia: Status: Acute (4) Hypertension: Status: Acute (5) Colonic diverticular abscess: Status: Acute (6) Fall: Status: Acute (7) Sepsis: Status: Acute Assessment and Plan: A 64 years old male with PMH of CAD, stroke, diabetes, BPH among others who presented to the hospital from home with diarrhea, fall and altered mentation. Sepsis Diverticular abscess Negative C diff test CT scan showing worsening abscess Continue Flagyl and to add ceftriaxone Continue gentle IV fluid Advanced diet as tolerated Surgery consult Acute kidney injury Seems to be prerenal with BUN to creatinine ratio more than 20 Improving Creatinine trending down Continue gentle hydration for now Monitor intake and output Hypernatremia Likely secondary to dehydration IV fluids Change IV fluids the D5 with half-normal saline Monitor BMP next Lyme Toxic metabolic encephalopathy Likely multifactorial with infection and multiple medications To decrease clonazepam and discontinue gabapentin for now continue seizure medications Atelectasis Secondary to body habitus and decrease activity To do incentive spirometry when more awake Watch for signs of pneumonia Diabetes Hold metformin SSI Fall PT eval prior to d/c CAD s/p stent Continue Plavix, statin, metoprolol Hypertension Continue losartan, metoprolol BPH Continue Flomax Mood Continue risperidone, lamotrigine, duloxetine, Depakote, clonazepam Morbid obesity BMI of 56 which is likely contributing to his atelectasis and general deconditioning DVT PPx Heparin
[2020-07-09] MEDS: cefTRIAXone sodium 1 GM in 0.9 % Sodium Chloride 50 ML IV (15:25)
[2020-07-09] MEDS: 0.9 % Sodium Chloride Flush 3 ML SYRINGE IVFLUSH (15:28)
[2020-07-09] MEDS: Tamsulosin HCL 0.4 MG CAPSULE 0.8 MG PO (21:20)
[2020-07-09] MEDS: Atorvastatin Calcium 80 MG TABLET PO (21:21)
[2020-07-09] MEDS: Famotidine 20 MG TABLET PO (21:21)
[2020-07-09] MEDS: Metoprolol Tartrate 50 MG TABLET 75 MG PO (21:22)
[2020-07-09] MEDS: clonazePAM 1 MG TABLET 0.5 MG PO (21:23)
[2020-07-10] VITALS (9 sets, daily range): BP systolic 148–186; BP diastolic 70–93; PULSE 65–88; RESP 14–18; TEMP 36.4–37.1; O2SAT 95–99
[2020-07-10] MEDS: Heparin Sodium,Porcine 5,000 UNIT/ML VIAL 5000 UNIT SUBCUT ×2 (04:21→15:54)
[2020-07-10] MEDS: metroNIDAZOLE/NS 500 MG/100 ML PIGGYBACK 100 MG IV ×3 (06:17→23:05)
[2020-07-10 06:58] LABS: Hematocrit 34.3 % (42-52); Hemoglobin 11.2 g/dl (14.0-18.0); Mean Corpuscular HGB Conc 32.7 g/dl (31.0-36.0); Mean Corpuscular Hemoglobin 29.5 pg (27.0-33.0); Mean Corpuscular Volume 90.3 fL (80-98); Mean Platelet Volume 9.8 fL (9.4-12.4); Platelet Count 264 X10*3/uL (160-400); Red Cell Distribution Width 12.6 % (11.0-16.0); White Blood Count 7.5 X10*3/uL (4.8-10.8)
[2020-07-10 07:19] LABS: Anion Gap 12 (12-20); Blood Urea Nitrogen 12 mg/dL (9-16); Calcium 8.2 mg/dL (8.4-10.2); Carbon Dioxide 27 mmol/L (22-29); Chloride 107 mmol/L (96-108); Creatinine Clr Calc Pharmacy 179.1; Estimated Glomerular Filt Rate > 60; Glucose Random 139 mg/dL (60-115); Potassium 3.1 mmol/l (3.3-5.1); Sodium 143 mmol/L (135-145)
[2020-07-10 07:59] LABS: Glucose, Whole Blood 113 mg/dL (60-115)
--- NOTE | 2020-07-10 08:09 | PM.PNGS ---
Subjective Subjective Date of Service: 07/10/20 Interval history: Sleepy but arousable, denies any new complaints. Denies abdominal pain. Still not very hungry. Physical Exam Vital Signs: Vital Signs: Last Vital Signs Temp 97.8 F 07/10/20 07:59 Pulse 71 07/10/20 07:59 Resp 15 07/10/20 07:59 BP 148/70 H 07/10/20 07:59 Pulse Ox 99 07/10/20 07:59 Body Mass Index 56.6 Const: General: cooperative, comfortable and no acute distress Eyes: Other: Normal sclera Resp: Other: Breathing comfortably on room air, no respiratory distress GI: Other: Soft, nondistended, nontender to deep palpation, no rebound or guarding Skin: Other: Warm, dry Neuro: Other: Sleepy but arousable Progress Note: A&P Assessment and plan (1) Perforation of sigmoid colon due to diverticulitis: Status: Acute Assessment and Plan: Patient with a contained abscess collection in the left lower quadrant due to diverticulitis. Collection is larger but is in a difficult location to reach by interventional radiology. Patient remains asymptomatic with no abdominal tenderness in the left lower quadrant. Patient on antibiotics for UTI. Fall Risk Details Current Medications: Current Medications Generic Name Dose Route Start Last Admin Trade Name Freq PRN Reason Stop Dose Admin Acetaminophen 650 mg 07/08/20 16:23 Acetaminophen 325 Mg Tablet PO Q6H PRN Pain, Mild (Pain Scale 1-3) Albuterol Sulfate 2 puff 07/09/20 08:29 Albuterol Sulfate 90 Mcg 8 Gm Inhaler INHALE Q4H PRN Shortness Of Breath Amlodipine Besylate 5 mg 07/09/20 09:00 07/09/20 11:04 Amlodipine Besylate 5 Mg Tablet PO Not Given DAILY AARON Protocol Atorvastatin Calcium 80 mg 07/09/20 21:00 07/09/20 21:21 Atorvastatin Calcium 80 Mg Tablet PO 80 mg BEDTIME AARON Administration Clonazepam 0.5 mg 07/09/20 21:00 07/09/20 21:23 Clonazepam 1 Mg Tablet PO 0.5 mg BEDTIME AARON Administration Clopidogrel Bisulfate 75 mg 07/10/20 09:00 Clopidogrel Bisulfate 75 Mg Tablet PO DAILY AARON Divalproex Sodium 250 mg 07/09/20 09:00 07/09/20 11:05 Divalproex Sodium Er 250 Mg Tab.Er.24h PO 250 mg DAILY AARON Administration Duloxetine HCl 60 mg 07/09/20 09:00 07/09/20 11:05 Duloxetine Hcl 60 Mg Capsule.Dr PO Not Given DAILY AARON Famotidine 20 mg 07/09/20 09:00 07/09/20 21:21 Famotidine 20 Mg Tablet PO 20 mg BID AARON Administration Heparin Sodium (Porcine) 5,000 unit 07/08/20 16:30 07/10/20 04:21 Heparin Sodium,Porcine 5,000 Unit/Ml Vial SUBCUT 5,000 unit Q12H AARON Administration Metronidazole 500 mg in 100 mls @ 100 mls/hr 07/08/20 23:00 07/10/20 07:35 Flagyl IV Infused Q8H AARON Infusion Ceftriaxone Sodium 1 gm/ 50 mls @ 100 mls/hr 07/09/20 15:00 07/09/20 16:08 Sodium Chloride IV Infused Q24H AARON Infusion Lamotrigine 200 mg 07/08/20 21:00 07/09/20 21:20 Lamotrigine 100 Mg Tablet PO 200 mg BID AARON Administration Metoprolol Tartrate 75 mg 07/09/20 09:00 07/09/20 21:22 Metoprolol Tartrate 50 Mg Tablet PO 75 mg BID AARON Administration Protocol Ondansetron HCl 4 mg 07/08/20 16:23 Ondansetron Hcl 4 Mg/2 Ml Vial IVPUSH Q8H PRN Nausea and Vomiting Sodium Chloride 3 ml 07/09/20 00:00 07/09/20 23:26 0.9 % Sodium Chloride Flush 3 Ml Syringe IVFLUSH Not Given QSHIFT AARON Tamsulosin HCl 0.8 mg 07/09/20 21:00 07/09/20 21:20 Tamsulosin Hcl 0.4 Mg Capsule PO 0.8 mg BEDTIME AARON Administration Time Spent With Patient Time: Total time spent is greater than 50% in coordination of care (as documented) at patient's floor/unit and/or counseling patient: Time with patient: 15 - 24 minutes
[2020-07-10] MEDS: Acetylcysteine 10 % 400 MG/4 ML VIAL INHALE (08:49)
[2020-07-10] MEDS: Metoprolol Tartrate 50 MG TABLET 75 MG PO ×2 (10:23→21:57)
[2020-07-10] MEDS: DULoxetine HCl 60 MG CAPSULE.DR PO (10:23)
[2020-07-10] MEDS: Clopidogrel Bisulfate 75 MG TABLET PO (10:23)
[2020-07-10] MEDS: 0.9 % Sodium Chloride Flush 3 ML SYRINGE IVFLUSH ×3 (10:23→23:05)
[2020-07-10] MEDS: amLODIPine Besylate 5 MG TABLET PO (10:23)
[2020-07-10] MEDS: lamoTRIgine 100 MG TABLET 200 MG PO ×2 (10:24→21:57)
[2020-07-10] MEDS: Famotidine 20 MG TABLET PO ×2 (10:24→21:57)
[2020-07-10] MEDS: Divalproex Sodium ER 250 MG TAB.ER.24H PO (10:24)
--- NOTE | 2020-07-10 11:37 | HO.PM.IMPN ---
Subjective Subjective Date of Service: 07/10/20 Interval History: the patient was seen and evaluated this morning Laying in bed, more awake and active this morning Denies any fever, chills or shortness of breath but reports generalized pain No reported other overnight events. Systemic review: Pain all over his body, no fever or chills No chest pain, palpitation No shortness of breath or coughing No abdominal pain, nausea or vomiting No urinary symptoms Waxing and weaning mental status Physical Exam Vital Signs: Vital Signs: Last Vital Signs Temp 97.8 F 07/10/20 07:59 Pulse 82 07/10/20 10:23 Resp 15 07/10/20 07:59 BP 148/70 H 07/10/20 10:23 Pulse Ox 99 07/10/20 07:59 Body Mass Index 56.6 Constitutional : More alert this morning, oriented to self but not place or time, lethargic and tired Neck : Normal inspection, Supple Cardiovascular : RRR, S1 S2, no lower extremity edema Respiratory : Decreased bilateral air entry, no crackles, wheezes or rhonchi Gastrointestinal: soft, lax, Normal bowel sounds, Non tender Skin : Warm/Dry, No rash Neurological : Lethargic, sleepy, wakes up with stimulation, No focal deficit Objective Data Current Medications Generic Name Dose Route Start Last Admin Trade Name Freq PRN Reason Stop Dose Admin Acetaminophen 650 mg 07/08/20 16:23 Acetaminophen 325 Mg Tablet PO Q6H PRN Pain, Mild (Pain Scale 1-3) Albuterol Sulfate 2 puff 07/09/20 08:29 Albuterol Sulfate 90 Mcg 8 Gm Inhaler INHALE Q4H PRN Shortness Of Breath Amlodipine Besylate 5 mg 07/09/20 09:00 07/10/20 10:23 Amlodipine Besylate 5 Mg Tablet PO 5 mg DAILY AARON Administration Protocol Atorvastatin Calcium 80 mg 07/09/20 21:00 07/09/20 21:21 Atorvastatin Calcium 80 Mg Tablet PO 80 mg BEDTIME AARON Administration Clonazepam 0.5 mg 07/09/20 21:00 07/09/20 21:23 Clonazepam 1 Mg Tablet PO 0.5 mg BEDTIME AARON Administration Clopidogrel Bisulfate 75 mg 07/10/20 09:00 07/10/20 10:23 Clopidogrel Bisulfate 75 Mg Tablet PO 75 mg DAILY AARON Administration Divalproex Sodium 250 mg 07/09/20 09:00 07/10/20 10:24 Divalproex Sodium Er 250 Mg Tab.Er.24h PO 250 mg DAILY AARON Administration Duloxetine HCl 60 mg 07/09/20 09:00 07/10/20 10:23 Duloxetine Hcl 60 Mg Capsule.Dr PO 60 mg DAILY AARON Administration Famotidine 20 mg 07/09/20 09:00 07/10/20 10:24 Famotidine 20 Mg Tablet PO 20 mg BID AARON Administration Heparin Sodium (Porcine) 5,000 unit 07/08/20 16:30 07/10/20 04:21 Heparin Sodium,Porcine 5,000 Unit/Ml Vial SUBCUT 5,000 unit Q12H AARON Administration Metronidazole 500 mg in 100 mls @ 100 mls/hr 07/08/20 23:00 07/10/20 07:35 Flagyl IV Infused Q8H AARON Infusion Ceftriaxone Sodium 1 gm/ 50 mls @ 100 mls/hr 07/09/20 15:00 07/09/20 16:08 Sodium Chloride IV Infused Q24H AARON Infusion Lamotrigine 200 mg 07/08/20 21:00 07/10/20 10:24 Lamotrigine 100 Mg Tablet PO 200 mg BID AARON Administration Metoprolol Tartrate 75 mg 07/09/20 09:00 07/10/20 10:23 Metoprolol Tartrate 50 Mg Tablet PO 75 mg BID AARON Administration Protocol Ondansetron HCl 4 mg 07/08/20 16:23 Ondansetron Hcl 4 Mg/2 Ml Vial IVPUSH Q8H PRN Nausea and Vomiting Sodium Chloride 3 ml 07/09/20 00:00 07/10/20 10:23 0.9 % Sodium Chloride Flush 3 Ml Syringe IVFLUSH 3 ml QSHIFT AARON Administration Tamsulosin HCl 0.8 mg 07/09/20 21:00 07/09/20 21:20 Tamsulosin Hcl 0.4 Mg Capsule PO 0.8 mg BEDTIME AARON Administration Labs CBC & Chem 7: 07/10/20 06:18 07/10/20 06:17 Microbiology Microbiology Results: Microbiology 07/08/20 11:55 Blood - Venous Blood Culture - Preliminary No growth after 24 hours. 07/08/20 12:05 Blood - Venous Blood Culture - Preliminary No growth after 24 hours. 07/08/20 11:53 Urine [place] Urine Culture - Final Assessment and Plan (1) Acute metabolic encephalopathy: Status: Acute (2) ROBERT (acute kidney injury): Status: Acute (3) 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 hyperplasia: Status: Acute (4) Hypertension: Status: Acute (5) Colonic diverticular abscess: Status: Acute (6) Fall: Status: Acute (7) Sepsis: Status: Acute Assessment and Plan: A 64 years old male with PMH of CAD, stroke, diabetes, BPH among others who presented to the hospital from home with diarrhea, fall and altered mentation. Sepsis Diverticular abscess Negative C diff test CT scan showing worsening abscess Continue Flagyl and to add ceftriaxone Continue gentle IV fluid Advanced diet as tolerated Surgery consult Acute kidney injury Seems to be prerenal with BUN to creatinine ratio more than 20 Improving Creatinine trending down to baseline Discontinue IV fluid Monitor intake and output Hypernatremia Resolved Hold IVF Monitor BMP Toxic metabolic encephalopathy Likely multifactorial with infection and multiple medications Improving slowly To decrease clonazepam and discontinue gabapentin for now continue seizure medications Check valproic and Keppra levels Atelectasis Secondary to body habitus and decrease activity To do incentive spirometry To do Mucomyst neb Watch for signs of pneumonia Diabetes Hold metformin SSI Fall PT eval prior to d/c CAD s/p stent Continue Plavix, statin, metoprolol Hypertension Continue losartan, metoprolol BPH Continue Flomax Mood Continue risperidone, lamotrigine, duloxetine, Depakote, clonazepam Morbid obesity BMI of 56 which is likely contributing to his atelectasis and general deconditioning DVT PPx Heparin
--- NOTE | 2020-07-10 11:53 | PM.EVENT ---
Event Note Date of Service: 07/10/20 Event Note: Last to see this patient for pulmonary consultation. Patient admitted with the perforated sigmoid colon and pericolonic abscess. He has toxic encephalopathy, not responding well to conversation. Being treated with IV hydration and antibiotics and is gradually improving. Pulmonary charles there is no history of any pre-existing pulmonary problems. However patient being grossly obese may have possible obstructive sleep apnea. Chest auscultation reveals slightly decreased breath sounds over the basilar areas. CT scan of the chest shows subsegmental atelectasis in the bases probably due to hypo ventilation. No other lung pathology is noted. I recommend that when patient is more alert should be as to do deep breathing exercises with incentive spirometry. Also can be evaluated later on for possible sleep study. The body weight noted in the chart of 383 and BMI 56 does not seem to be realistic, I would suggest that he needs to be weighed again. A: Bibasilar Atalectasis , sec to body habitus , and Hypoventilation od lung bases . P; When pt . is more alert , get him out of bed and advise Deep Breathing exercises . Accurate body weight , Will consider sleep study , at later date ,as out patient .
[2020-07-10 12:26] LABS: Glucose, Whole Blood 130 mg/dL (60-115)
[2020-07-10 12:43] LABS: Valproate 33.4 mcg/mL (50.0-100.0)
--- NOTE | 2020-07-10 13:51 | MHC.CM.PN ---
Pt recently discharged (07/03/20) from [facility] to [facility], via BLS, for STR. Prior to previous admission, pt was living at home, independent with self care and active with [facility]. Pt has both a cane and a walker at home. Pts primary HCP is his , December ([phone]).
[2020-07-10] MEDS: cefTRIAXone sodium 1 GM in 0.9 % Sodium Chloride 50 ML IV (15:55)
--- NOTE | 2020-07-10 16:15 | MHC.CM.PN ---
CM spoke to pts , December ([phone]) who reports she is very happy with the care the pt received at [facility] and definitely wants him to return there upon DC . She also reports the pts PCP is Yoel Cervantes in [place], [place]. Current DC plan is for pt to return to [facility] to continue his rehab. transportation TBD. BLS vs chair van
[2020-07-10 16:31] LABS: Glucose, Whole Blood 118 mg/dL (60-115)
[2020-07-10 20:55] LABS: Glucose, Whole Blood 106 mg/dL (60-115)
[2020-07-10] MEDS: Tamsulosin HCL 0.4 MG CAPSULE 0.8 MG PO (21:57)
[2020-07-10] MEDS: clonazePAM 1 MG TABLET 0.5 MG PO (21:57)
[2020-07-10] MEDS: Atorvastatin Calcium 80 MG TABLET PO (21:57)
[2020-07-11] VITALS (8 sets, daily range): BP systolic 151–188; BP diastolic 89–97; PULSE 70–86; RESP 18–19; TEMP 36.5–36.8; O2SAT 98–100; BMI 56.6
[2020-07-11] MEDS: Heparin Sodium,Porcine 5,000 UNIT/ML VIAL 5000 UNIT SUBCUT ×2 (05:47→16:42)
[2020-07-11] MEDS: metroNIDAZOLE/NS 500 MG/100 ML PIGGYBACK 100 MG IV ×3 (05:47→22:44)
[2020-07-11 07:34] LABS: Hematocrit 36.9 % (42-52); Hemoglobin 12.4 g/dl (14.0-18.0); Mean Corpuscular HGB Conc 33.6 g/dl (31.0-36.0); Mean Corpuscular Hemoglobin 29.7 pg (27.0-33.0); Mean Corpuscular Volume 88.5 fL (80-98); Platelet Count 279 X10*3/uL (160-400); Red Blood Count 4.17 X10*6/uL (4.60-5.80); Red Cell Distribution Width 12.2 % (11.0-16.0); White Blood Count 6.8 X10*3/uL (4.8-10.8)
[2020-07-11 07:55] LABS: Anion Gap 15 (12-20); Blood Urea Nitrogen 8 mg/dL (9-16); Calcium 8.3 mg/dL (8.4-10.2); Carbon Dioxide 28 mmol/L (22-29); Chloride 106 mmol/L (96-108); Creatinine Clr Calc Pharmacy 187.6; Estimated Glomerular Filt Rate > 60; Glucose Random 113 mg/dL (60-115); Potassium 3.6 mmol/l (3.3-5.1); Sodium 145 mmol/L (135-145)
[2020-07-11 08:23] LABS: Glucose, Whole Blood 116 mg/dL (60-115)
[2020-07-11] MEDS: lamoTRIgine 100 MG TABLET 200 MG PO ×2 (09:00→21:41)
[2020-07-11] MEDS: amLODIPine Besylate 5 MG TABLET PO (09:00)
[2020-07-11] MEDS: Divalproex Sodium ER 250 MG TAB.ER.24H PO (09:02)
[2020-07-11] MEDS: 0.9 % Sodium Chloride Flush 3 ML SYRINGE IVFLUSH ×3 (09:02→22:44)
[2020-07-11] MEDS: Metoprolol Tartrate 50 MG TABLET 75 MG PO ×2 (09:02→21:42)
[2020-07-11] MEDS: DULoxetine HCl 60 MG CAPSULE.DR PO (09:03)
[2020-07-11] MEDS: Famotidine 20 MG TABLET PO ×2 (09:03→21:44)
[2020-07-11] MEDS: Clopidogrel Bisulfate 75 MG TABLET PO (09:03)
[2020-07-11] MEDS: Losartan Potassium 50 MG TABLET 100 MG PO (09:03)
--- NOTE | 2020-07-11 11:01 | MHC.CM.PN ---
CASE MANAGEMENT UPDATED YOLANDA LADD IN [facility]. PER CONVERSATION WITH HOSPITALIST, PLAN IS DC THURSDAY 07/12 TO SNF VERSUS HOME WITH HOSPICE. HOSPITALIST TO HAVE GOALS OF CARE CONVERSATION WITH .
--- NOTE | 2020-07-11 14:32 | HO.PM.IMPN ---
Subjective Subjective Date of Service: 07/11/20 Interval History: Interval History: the patient was seen and evaluated this morning Laying in bed, less awake and active this morning Denies any fever, chills or shortness of breath but reports generalized pain No reported other overnight events. Systemic review: Pain all over his body, no fever or chills No chest pain, palpitation No shortness of breath or coughing No abdominal pain, nausea or vomiting No urinary symptoms Waxing and weaning mental status Physical Exam Vital Signs: Vital Signs: Last Vital Signs Temp 98.3 F 07/11/20 11:27 Pulse 82 07/11/20 11:27 Resp 18 07/11/20 11:27 BP 177/97 H 07/11/20 11: Pulse Ox 99 07/11/20 11:27 Body Mass Index 56.6 Constitutional : More alert this morning, oriented to self but not place or time, lethargic and tired Neck : Normal inspection, Supple Cardiovascular : RRR, S1 S2, no lower extremity edema Respiratory : Decreased bilateral air entry, no crackles, wheezes or rhonchi Gastrointestinal: soft, lax, Normal bowel sounds, Non tender Skin : Warm/Dry, No rash Neurological : Lethargic, sleepy, wakes up with stimulation, No focal deficit Objective Data Current Medications Generic Name Dose Route Start Last Admin Trade Name Tomerq PRN Reason Stop Dose Admin Acetaminophen 650 mg 07/08/20 16:23 Acetaminophen 325 Mg Tablet PO Q6H PRN Pain, Mild (Pain Scale 1-3) Albuterol Sulfate 2 puff 07/09/20 08:29 Albuterol Sulfate 90 Mcg 8 Gm Inhaler INHALE Q4H PRN Shortness Of Breath Amlodipine Besylate 5 mg 07/09/20 09:00 07/11/20 09:00 Amlodipine Besylate 5 Mg Tablet PO 5 mg DAILY AARON Administration Protocol Atorvastatin Calcium 80 mg 07/09/20 21:00 07/10/20 21:57 Atorvastatin Calcium 80 Mg Tablet PO 80 mg BEDTIME AARON Administration Clonazepam 0.5 mg 07/09/20 21:00 07/10/20 21:57 Clonazepam 1 Mg Tablet PO 0.5 mg BEDTIME AARON Administration Clopidogrel Bisulfate 75 mg 07/10/20 09:00 07/11/20 09:03 Clopidogrel Bisulfate 75 Mg Tablet PO 75 mg DAILY AAORN Administration Divalproex Sodium 250 mg 07/09/20 09:00 07/11/20 09:02 Divalproex Sodium Er 250 Mg Tab.Er.24h PO 250 mg DAILY AARON Administration Duloxetine HCl 60 mg 07/09/20 09:00 07/11/20 09:03 Duloxetine Hcl 60 Mg Capsule.Dr PO 60 mg DAILY AARON Administration Famotidine 20 mg 07/09/20 09:00 07/11/20 09:03 Famotidine 20 Mg Tablet PO 20 mg BID AARON Administration Heparin Sodium (Porcine) 5,000 unit 07/08/20 16:30 07/11/20 05:47 Heparin Sodium,Porcine 5,000 Unit/Ml Vial SUBCUT 5,000 unit Q12H AARON Administration Metronidazole 500 mg in 100 mls @ 100 mls/hr 07/08/20 23:00 07/11/20 07:13 Flagyl IV Infused Q8H AARON Infusion Ceftriaxone Sodium 1 gm/ 50 mls @ 100 mls/hr 07/09/20 15:00 07/10/20 16:36 Sodium Chloride IV Infused Q24H AARON Infusion Lamotrigine 200 mg 07/08/20 21:00 07/11/20 09:00 Lamotrigine 100 Mg Tablet PO 200 mg BID AARON Administration Losartan Potassium 100 mg 07/11/20 09:00 07/11/20 09:03 Losartan Potassium 50 Mg Tablet PO 100 mg DAILY AARON Administration Protocol Metoprolol Tartrate 75 mg 07/09/20 09:00 07/11/20 09:02 Metoprolol Tartrate 50 Mg Tablet PO 75 mg BID AARON Administration Protocol Ondansetron HCl 4 mg 07/08/20 16:23 Ondansetron Hcl 4 Mg/2 Ml Vial IVPUSH Q8H PRN Nausea and Vomiting Sodium Chloride 3 ml 07/09/20 00:00 07/11/20 09:02 0.9 % Sodium Chloride Flush 3 Ml Syringe IVFLUSH 3 ml QSHIFT AARON Administration Tamsulosin HCl 0.8 mg 07/09/20 21:00 07/10/20 21:57 Tamsulosin Hcl 0.4 Mg Capsule PO 0.8 mg BEDTIME AARON Administration Labs CBC & Chem 7: 07/11/20 06:51 07/11/20 06:51 Microbiology Microbiology Results: Microbiology 07/08/20 11:55 Blood - Venous Blood Culture - Preliminary No growth after 48 hours. 07/08/20 12:05 Blood - Venous Blood Culture - Preliminary No growth after 48 hours. 07/08/20 11:53 Urine [place] Urine Culture - Final Assessment and Plan (1) Acute metabolic encephalopathy: Status: Acute (2) ROBERT (acute kidney injury): Status: Acute (3) 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 hyperplasia: Status: Acute (4) Hypertension: Status: Acute (5) Colonic diverticular abscess: Status: Acute (6) Fall: Status: Acute (7) Sepsis: Status: Acute Assessment and Plan: A 64 years old male with PMH of CAD, stroke, diabetes, BPH among others who presented to the hospital from home with diarrhea, fall and altered mentation. Toxic metabolic encephalopathy Likely multifactorial with infection and multiple medications Improving slowly decreased clonazepam and discontinue gabapentin for now continue seizure medications pending valproic and Keppra levels Sepsis,resolved Diverticular abscess Negative C diff test CT scan showing worsening abscess Continue Flagyl and to add ceftriaxone DC IV fluid Advanced diet as tolerated Surgery input appreciated Acute kidney injury resolved Creatinine trending down to baseline Discontinue IV fluid Monitor intake and output Hypernatremia Resolved Hold IVF Monitor BMP Atelectasis Secondary to body habitus and decrease activity To do incentive spirometry To do Mucomyst neb Watch for signs of pneumonia Diabetes Hold metformin SSI Fall PT eval prior to d/c CAD s/p stent Continue Plavix, statin, metoprolol Hypertension Continue losartan, metoprolol BPH Continue Flomax Mood Continue risperidone, lamotrigine, duloxetine, Depakote, clonazepam Morbid obesity BMI of 56 which is likely contributing to his atelectasis and general deconditioning DVT PPx Heparin
[2020-07-11] MEDS: cefTRIAXone sodium 1 GM in 0.9 % Sodium Chloride 50 ML IV (14:43)
[2020-07-11] MEDS: Atorvastatin Calcium 80 MG TABLET PO (21:44)
[2020-07-11] MEDS: clonazePAM 1 MG TABLET 0.5 MG PO (21:44)
[2020-07-11] MEDS: Tamsulosin HCL 0.4 MG CAPSULE 0.8 MG PO (21:44)
[2020-07-12 03:28] VITALS: BP 155/92; PULSE 84; RESP 19; TEMP 36.7; O2SAT 98
[2020-07-12] MEDS: Heparin Sodium,Porcine 5,000 UNIT/ML VIAL 5000 UNIT SUBCUT ×2 (04:43→17:06)
[2020-07-12] MEDS: metroNIDAZOLE/NS 500 MG/100 ML PIGGYBACK 100 MG IV ×3 (06:31→21:56)
[2020-07-12 07:35] VITALS: BP 188/108; PULSE 78; RESP 18; TEMP 36.4; O2SAT 100
[2020-07-12 07:45] LABS: Anion Gap 12 (12-20); Blood Urea Nitrogen 9 mg/dL (9-16); Calcium 8.6 mg/dL (8.4-10.2); Carbon Dioxide 30 mmol/L (22-29); Chloride 106 mmol/L (96-108); Creatinine Clr Calc Pharmacy 181.9; Estimated Glomerular Filt Rate > 60; Glucose Random 109 mg/dL (60-115); Potassium 3.4 mmol/l (3.3-5.1); Sodium 145 mmol/L (135-145)
[2020-07-12] MEDS: 0.9 % Sodium Chloride Flush 3 ML SYRINGE IVFLUSH ×2 (08:19→15:45)
[2020-07-12] MEDS: Clopidogrel Bisulfate 75 MG TABLET PO (08:20)
[2020-07-12] MEDS: DULoxetine HCl 60 MG CAPSULE.DR PO (08:20)
[2020-07-12] MEDS: lamoTRIgine 100 MG TABLET 200 MG PO ×2 (08:20→21:56)
[2020-07-12] MEDS: amLODIPine Besylate 5 MG TABLET PO (08:21)
[2020-07-12] MEDS: Famotidine 20 MG TABLET PO ×2 (08:21→21:56)
[2020-07-12] MEDS: Divalproex Sodium ER 250 MG TAB.ER.24H PO (08:21)
[2020-07-12] MEDS: Losartan Potassium 50 MG TABLET 100 MG PO (08:21)
--- NOTE | 2020-07-12 09:02 | PM.PNGS ---
Subjective Subjective Date of Service: 07/12/20 Interval history: Patient more alert, slowly answers questions. Denies abdominal pain. Physical Exam Vital Signs: Vital Signs: Last Vital Signs Temp 97.6 F 07/12/20 07:35 Pulse 78 07/12/20 07:35 Resp 18 07/12/20 07:35 BP 188/108 H 07/12/20 07:35 Pulse Ox 100 07/12/20 07:35 Body Mass Index 56.6 Const: General: cooperative, no acute distress and awake Neck: Neck: Yes normal visual inspection Resp: Effort & Inspection: normal respiratory effort, no audible wheezes, no cough and not tachypneic GI: Inspection: Yes normal to inspection Palpation (GI): Soft to palpation, nontender, no guarding and not rigid Percussion: Yes normal to percussion Auscultation: normal bowel sounds Skin: General skin exam: no rashes or lesions noted Progress Note: A&P Assessment and plan (1) Perforation of sigmoid colon due to diverticulitis: Status: Acute Assessment and Plan: 64-year-old male with history of perforated sigmoid diverticulitis with a contained abscess in the left lower quadrant. This ideally would be drained by Interventional Radiology however is in a location that the do not feel comfortable draining. Patient currently remains asymptomatic with no complaints of abdominal pain. Patient's laboratories remained normal. Patient currently on antibiotics for urinary tract infection. Management discussed in detail with the patient's family previously and they wished to avoid abdominal surgeries if at all possible. No surgical intervention anticipated at this time. Fall Risk Details Current Medications: Current Medications Generic Name Dose Route Start Last Admin Trade Name Tomerq PRN Reason Stop Dose Admin Acetaminophen 650 mg 07/08/20 16:23 Acetaminophen 325 Mg Tablet PO Q6H PRN Pain, Mild (Pain Scale 1-3) Albuterol Sulfate 2 puff 07/09/20 08:29 Albuterol Sulfate 90 Mcg 8 Gm Inhaler INHALE Q4H PRN Shortness Of Breath Amlodipine Besylate 5 mg 07/09/20 09:00 07/12/20 08:21 Amlodipine Besylate 5 Mg Tablet PO 5 mg DAILY AARON Administration Protocol Atorvastatin Calcium 80 mg 07/09/20 21:00 07/11/20 21:44 Atorvastatin Calcium 80 Mg Tablet PO 80 mg BEDTIME AARON Administration Clonazepam 0.5 mg 07/09/20 21:00 07/11/20 21:44 Clonazepam 1 Mg Tablet PO 0.5 mg BEDTIME AARON Administration Clopidogrel Bisulfate 75 mg 07/10/20 09:00 07/12/20 08:20 Clopidogrel Bisulfate 75 Mg Tablet PO 75 mg DAILY AARON Administration Divalproex Sodium 250 mg 07/09/20 09:00 07/12/20 08:21 Divalproex Sodium Er 250 Mg Tab.Er.24h PO 250 mg DAILY AARON Administration Duloxetine HCl 60 mg 07/09/20 09:00 07/12/20 08:20 Duloxetine Hcl 60 Mg Capsule.Dr PO 60 mg DAILY AARON Administration Famotidine 20 mg 07/09/20 09:00 07/12/20 08:21 Famotidine 20 Mg Tablet PO 20 mg BID AARON Administration Heparin Sodium (Porcine) 5,000 unit 07/08/20 16:30 07/12/20 04:43 Heparin Sodium,Porcine 5,000 Unit/Ml Vial SUBCUT 5,000 unit Q12H AARON Administration Metronidazole 500 mg in 100 mls @ 100 mls/hr 07/08/20 23:00 07/12/20 08:20 Flagyl IV Infused Q8H AARON Infusion Ceftriaxone Sodium 1 gm/ 50 mls @ 100 mls/hr 07/09/20 15:00 07/11/20 16:14 Sodium Chloride IV Infused Q24H AARON Infusion Lamotrigine 200 mg 07/08/20 21:00 07/12/20 08:20 Lamotrigine 100 Mg Tablet PO 200 mg BID AARON Administration Losartan Potassium 100 mg 07/11/20 09:00 07/12/20 08:21 Losartan Potassium 50 Mg Tablet PO 100 mg DAILY AARON Administration Protocol Metoprolol Tartrate 75 mg 07/09/20 09:00 07/11/20 21:42 Metoprolol Tartrate 50 Mg Tablet PO 75 mg BID AARON Administration Protocol Ondansetron HCl 4 mg 07/08/20 16:23 Ondansetron Hcl 4 Mg/2 Ml Vial IVPUSH Q8H PRN Nausea and Vomiting Sodium Chloride 3 ml 07/09/20 00:00 07/12/20 08:19 0.9 % Sodium Chloride Flush 3 Ml Syringe IVFLUSH 3 ml QSHIFT AARON Administration Tamsulosin HCl 0.8 mg 07/09/20 21:00 12/26/20 21:44 Tamsulosin Hcl 0.4 Mg Capsule PO 0.8 mg BEDTIME AARON Administration Time Spent With Patient Time: Total time spent is greater than 50% in coordination of care (as documented) at patient's floor/unit and/or counseling patient: Time with patient: 15 - 24 minutes
[2020-07-12] MEDS: Metoprolol Tartrate 50 MG TABLET 75 MG PO ×2 (11:06→21:57)
[2020-07-12 11:37] VITALS: BP 174/103; RESP 18; TEMP 36.5; O2SAT 99
--- NOTE | 2020-07-12 12:15 | P.PNIM_ITS ---
Subjective Subjective Date of Service: 07/12/20 Interval History: the patient was seen and evaluated this morning Laying in bed, more alert and oriented since admission, able to have conve rsation Denies any fever, chills or shortness of breath No reported other overnight events. Systemic review: No fever, chills but feels generally weakness No chest pain, palpitation No shortness of breath or coughing No abdominal pain, nausea or vomiting No urinary symptoms No any rash or wounds Physical Exam Vital Signs: Vital Signs: Last Vital Signs Temp 97.7 F 07/12/20 11:37 Pulse 78 07/12/20 07:35 Resp 18 07/12/20 11:37 BP 174/103 H 07/12/20 11:37 Pulse Ox 99 07/12/20 11:37 Body Mass Index 56.6 Constitutional : More alert and interactive, oriented to self and place, Neck : Normal inspection, Supple Cardiovascular : RRR, S1 S2, no lower extremity edema Respiratory : Decreased bilateral air entry, no crackles, wheezes or rhonchi Gastrointestinal: soft, lax, Normal bowel sounds, Non tender Skin : Warm/Dry, No rash Neurological : Alert and interactive, mildly confused still, oriented to time and place, No focal deficit Objective Data Current Medications Generic Name Dose Route Start Last Admin Trade Name Freq PRN Reason Stop Dose Admin Acetaminophen 650 mg 07/08/20 16:23 Acetaminophen 325 Mg Tablet PO Q6H PRN Pain, Mild (Pain Scale 1-3) Albuterol Sulfate 2 puff 07/09/20 08:29 Albuterol Sulfate 90 Mcg 8 Gm Inhaler INHALE Q4H PRN Shortness Of Breath Amlodipine Besylate 5 mg 07/09/20 09:00 07/12/20 08:21 Amlodipine Besylate 5 Mg Tablet PO 5 mg DAILY AARON Administration Protocol Atorvastatin Calcium 80 mg 07/09/20 21:00 07/11/20 21:44 Atorvastatin Calcium 80 Mg Tablet PO 80 mg BEDTIME AARON Administration Clonazepam 0.5 mg 07/09/20 21:00 07/11/20 21:44 Clonazepam 1 Mg Tablet PO 0.5 mg BEDTIME AARON Administration Clopidogrel Bisulfate 75 mg 07/10/20 09:00 07/12/20 08:20 Clopidogrel Bisulfate 75 Mg Tablet PO 75 mg DAILY AARON Administration Divalproex Sodium 250 mg 07/09/20 09:00 07/12/20 08:21 Divalproex Sodium Er 250 Mg Tab.Er.24h PO 250 mg DAILY AARON Administration Duloxetine HCl 60 mg 07/09/20 09:00 07/12/20 08:20 Duloxetine Hcl 60 Mg Capsule.Dr PO 60 mg DAILY AARON Administration Famotidine 20 mg 07/09/20 09:00 07/12/20 08:21 Famotidine 20 Mg Tablet PO 20 mg BID AARON Administration Heparin Sodium (Porcine) 5,000 unit 07/08/20 16:30 07/12/20 04:43 Heparin Sodium,Porcine 5,000 Unit/Ml Vial SUBCUT 5,000 unit Q12H AARON Administration Metronidazole 500 mg in 100 mls @ 100 mls/hr 07/08/20 23:00 07/12/20 08:20 Flagyl IV Infused Q8H AARON Infusion Ceftriaxone Sodium 1 gm/ 50 mls @ 100 mls/hr 07/09/20 15:00 07/11/20 16:14 Sodium Chloride IV Infused Q24H AARON Infusion Lamotrigine 200 mg 07/08/20 21:00 07/12/20 08:20 Lamotrigine 100 Mg Tablet PO 200 mg BID AARON Administration Losartan Potassium 100 mg 07/11/20 09:00 07/12/20 08:21 Losartan Potassium 50 Mg Tablet PO 100 mg DAILY AARON Administration Protocol Metoprolol Tartrate 75 mg 07/09/20 09:00 07/12/20 11:06 Metoprolol Tartrate 50 Mg Tablet PO 75 mg BID AARON Administration Protocol Ondansetron HCl 4 mg 07/08/20 16:23 Ondansetron Hcl 4 Mg/2 Ml Vial IVPUSH Q8H PRN Nausea and Vomiting Sodium Chloride 3 ml 07/09/20 00:00 07/12/20 08:19 0.9 % Sodium Chloride Flush 3 Ml Syringe IVFLUSH 3 ml QSHIFT AARON Administration Tamsulosin HCl 0.8 mg 07/09/20 21:00 07/11/20 21:44 Tamsulosin Hcl 0.4 Mg Capsule PO 0.8 mg BEDTIME AARON Administration Labs CBC & Chem 7: 07/11/20 06:51 07/12/20 06:57 Microbiology Microbiology Results: Microbiology 07/08/20 11:55 Blood - Venous Blood Culture - Preliminary No growth after 48 hours. 07/08/20 12:05 Blood - Venous Blood Culture - Preliminary No growth after 48 hours. 07/08/20 11:53 Urine [place] Urine Culture - Final Assessment and Plan (1) Acute metabolic encephalopathy: Status: Acute (2) ROBERT (acute kidney injury): Status: Acute (3) 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 hyperplasia: Status: Acute (4) Hypertension: Status: Acute (5) Colonic diverticular abscess: Status: Acute (6) Fall: Status: Acute (7) Sepsis: Status: Acute Assessment and Plan: A 64 years old male with PMH of CAD, stroke, diabetes, BPH among others who presented to the hospital from home with diarrhea, fall and altered mentation. Toxic metabolic encephalopathy Likely multifactorial with infection and multiple medications Continue to improved today, likely from decreasing clonazepam decreased clonazepam and discontinue gabapentin for now continue seizure medications pending valproic and Keppra levels Sepsis,resolved Diverticular abscess Negative C diff test CT scan showing worsening abscess, no fever, chills or elevated WBCs Continue Flagyl and ceftriaxone DC IV fluid Advanced diet as tolerated Surgery input appreciated, no surgical plan, IR will not do aspiration of the fluids Acute kidney injury resolved Creatinine trending down to baseline Discontinue IV fluid Monitor intake and output Hypernatremia Resolved Hold IVF Monitor BMP Atelectasis Secondary to body habitus and decrease activity To do incentive spirometry To do Mucomyst neb Watch for signs of pneumonia Diabetes Hold metformin SSI Fall PT eval prior to d/c CAD s/p stent Continue Plavix, statin, metoprolol Hypertension Continue losartan, metoprolol BPH Continue Flomax Mood Continue risperidone, lamotrigine, duloxetine, Depakote, clonazepam Morbid obesity BMI of 56 which is likely contributing to his atelectasis and general deconditioning DVT PPx Heparin
[2020-07-12] MEDS: cefTRIAXone sodium 1 GM in 0.9 % Sodium Chloride 50 ML IV (14:09)
[2020-07-12 15:48] VITALS: BP 165/98; PULSE 96; RESP 20; TEMP 36.6; O2SAT 100
[2020-07-12 19:06] VITALS: PULSE 99; RESP 11; TEMP 37.7
[2020-07-12 19:09] VITALS: BP 180/98; PULSE 89; RESP 20; TEMP 37.2; O2SAT 95
[2020-07-12] MEDS: Tamsulosin HCL 0.4 MG CAPSULE 0.8 MG PO (21:56)
[2020-07-12] MEDS: Atorvastatin Calcium 80 MG TABLET PO (21:56)
[2020-07-12] MEDS: clonazePAM 1 MG TABLET 0.5 MG PO (21:57)
[2020-07-13] VITALS (8 sets, daily range): BP systolic 142–178; BP diastolic 80–99; PULSE 81–109; RESP 18; TEMP 36.2–36.7; O2SAT 93–99
[2020-07-13] MEDS: 0.9 % Sodium Chloride Flush 3 ML SYRINGE IVFLUSH ×3 (00:13→15:28)
[2020-07-13] MEDS: Heparin Sodium,Porcine 5,000 UNIT/ML VIAL 5000 UNIT SUBCUT ×2 (04:14→15:28)
[2020-07-13] MEDS: metroNIDAZOLE/NS 500 MG/100 ML PIGGYBACK 100 MG IV ×2 (06:09→15:28)
[2020-07-13] MEDS: Divalproex Sodium ER 250 MG TAB.ER.24H PO (08:52)
[2020-07-13] MEDS: DULoxetine HCl 60 MG CAPSULE.DR PO (08:52)
[2020-07-13] MEDS: Metoprolol Tartrate 50 MG TABLET 75 MG PO (08:52)
[2020-07-13] MEDS: Clopidogrel Bisulfate 75 MG TABLET PO (08:52)
[2020-07-13] MEDS: amLODIPine Besylate 5 MG TABLET PO (08:53)
[2020-07-13] MEDS: lamoTRIgine 100 MG TABLET 200 MG PO (08:53)
[2020-07-13] MEDS: Losartan Potassium 50 MG TABLET 100 MG PO (08:53)
[2020-07-13] MEDS: Famotidine 20 MG TABLET PO (08:53)
--- NOTE | 2020-07-13 09:05 | P.PNGS_ITS ---
Subjective Subjective Date of Service: 07/13/20 <Maranda Guajardo PA-C - Last Filed: 07/13/20 09:08> 07/13/20 <Bal[address]inder [address] MD - Last Filed: 07/13/20 11:12> Interval history: Asking if we are sending him away. Denies any pain. States he feels fine. <Maranda Guajardo PA-C - Last Filed: 07/13/20 09:08> Physical Exam Vital Signs: Vital Signs: Last Vital Signs Temp 97.2 F 07/13/20 07:47 Pulse 81 07/13/20 08:53 Resp 18 07/13/20 07:47 BP 178/99 H 07/13/20 08:53 Pulse Ox 97 07/13/20 07:47 Body Mass Index 56.6 <Maranda Guajardo PA-C - Last Filed: 07/13/20 09:08> Const: General: comfortable and no acute distress <JOSH Hall - Last Filed: 07/13/20 09:08> Resp: Effort & Inspection: normal respiratory effort <Maranda Guajardo PA-C - Last Filed: 07/13/20 09:08> GI: Inspection: No distended <Maranda Guajardo PA-C - Last Filed: 07/13/20 09:08> Palpation (GI): Soft to palpation, nontender, no guarding and No Rebound tende rness present <Maranda Guajardo PA-C - Last Filed: 07/13/20 09:08> Skin: General skin exam: no rashes or lesions noted <Maranda Guajardo PA-C - Last Filed: 07/13/20 09:08> Extrem: General: Yes normal to inspection and Yes no clubbing, cyanosis or edema <MIA Hall Last Filed: 07/13/20 09:08> Progress Note: A&P Assessment and plan (1) Acute metabolic encephalopathy: Status: Acute <MIA Hall Last Filed: 07/13/20 09:08> (2) ROBERT (acute kidney injury): Status: Acute <MIA Hall Last Filed: 07/13/20 09:08> (3) Sepsis: Status: Acute <Maranda Guajardo PA-C - Last Filed: 07/13/20 09:08> (4) 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 hyperplasia: Status: Acute <Maranda Guajardo PA-C - Last Filed: 07/13/20 09:08> (5) Colonic diverticular abscess: Status: Acute <Maranda Guajardo PA-C - Last Filed: 07/13/20 09:08> Assessment and Plan: Patient currently remains asymptomatic with no complaints of abdominal pain and abdomen remains very benign without any tenderness or peritoneal signs. Patient's laboratories remain normal. Patient currently on antibiotics for urinary tract infection. No surgical intervention anticipated at this time. <Maranda Guajardo PA-C - Last Filed: 07/13/20 09:08> (6) Perforation of sigmoid colon due to diverticulitis: Status: Acute <Maranda Guajardo PA-C - Last Filed: 07/13/20 09:08> Assessment and Plan: Patient with diverticular abscess readmitted for mental status changes found to have a UTI. He remains with a benign abdomen with no tenderness, rebound or guarding. Agree with the above assessment and plan. <Balwinder Way MD - Last Filed: 07/13/20 11:12> Fall Risk Details Current Medications: Current Medications Generic Name Dose Route Start Last Admin Trade Name Freq PRN Reason Stop Dose Admin Acetaminophen 650 mg 07/08/20 16:23 Acetaminophen 325 Mg Tablet PO Q6H PRN Pain, Mild (Pain Scale 1-3) Albuterol Sulfate 2 puff 07/09/20 08:29 Albuterol Sulfate 90 Mcg 8 Gm Inhaler INHALE Q4H PRN Shortness Of Breath Amlodipine Besylate 5 mg 07/09/20 09:00 07/13/20 08:53 Amlodipine Besylate 5 Mg Tablet PO 5 mg DAILY AARON Administration Protocol Atorvastatin Calcium 80 mg 07/09/20 21:00 07/12/20 21:56 Atorvastatin Calcium 80 Mg Tablet PO 80 mg BEDTIME AARON Administration Clonazepam 0.5 mg 07/09/20 21:00 07/12/20 21:57 Clonazepam 1 Mg Tablet PO 0.5 mg BEDTIME AARON Administration Clopidogrel Bisulfate 75 mg 07/10/20 09:00 07/13/20 08:52 Clopidogrel Bisulfate 75 Mg Tablet PO 75 mg DAILY AARON Administration Divalproex Sodium 250 mg 07/09/20 09:00 07/13/20 08:52 Divalproex Sodium Er 250 Mg Tab.Er.24h PO 250 mg DAILY AARON Administration Duloxetine HCl 60 mg 07/09/20 09:00 07/13/20 08:52 Duloxetine Hcl 60 Mg Capsule.Dr PO 60 mg DAILY AARON Administration Famotidine 20 mg 07/09/20 09:00 07/13/20 08:53 Famotidine 20 Mg Tablet PO 20 mg BID AARON Administration Heparin Sodium (Porcine) 5,000 unit 07/08/20 16:30 07/13/20 04:14 Heparin Sodium,Porcine 5,000 Unit/Ml Vial SUBCUT 5,000 unit Q12H AARON Administration Metronidazole 500 mg in 100 mls @ 100 mls/hr 07/08/20 23:00 07/13/20 07:20 Flagyl IV Infused Q8H AARON Infusion Ceftriaxone Sodium 1 gm/ 50 mls @ 100 mls/hr 07/09/20 15:00 07/12/20 14:40 Sodium Chloride IV Infused Q24H AARON Infusion Lamotrigine 200 mg 07/08/20 21:00 07/13/20 08:53 Lamotrigine 100 Mg Tablet PO 200 mg BID AARON Administration Losartan Potassium 100 mg 07/11/20 09:00 07/13/20 08:53 Losartan Potassium 50 Mg Tablet PO 100 mg DAILY AARON Administration Protocol Metoprolol Tartrate 75 mg 07/09/20 09:00 07/13/20 08:52 Metoprolol Tartrate 50 Mg Tablet PO 75 mg BID AARON Administration Protocol Ondansetron HCl 4 mg 07/08/20 16:23 Ondansetron Hcl 4 Mg/2 Ml Vial IVPUSH Q8H PRN Nausea and Vomiting Sodium Chloride 3 ml 07/09/20 00:00 07/13/20 07:21 0.9 % Sodium Chloride Flush 3 Ml Syringe IVFLUSH 3 ml QSHIFT AARON Administration Tamsulosin HCl 0.8 mg 07/09/20 21:00 07/12/20 21:56 Tamsulosin Hcl 0.4 Mg Capsule PO 0.8 mg BEDTIME AARON Administration <Maranda Guajardo PA-C - Last Filed: 07/13/20 09:08> Time Spent With Patient Time: Total time spent is greater than 50% in coordination of care (as documented) at patient's floor/unit and/or counseling patient: <Maranda Guajardo PA-C - Last Filed: 07/13/20 09:08> Time with patient: less than 15 minutes <Maranda Guajardo PA-C - Last Filed: 07/13/20 09:08>
[2020-07-13 09:39] LABS: COVID-19 Test Negative (Negative); IDNOW Serial# 9DD0AD1C
--- NOTE | 2020-07-13 12:07 | HO.PM.IMPN ---
Subjective Subjective Date of Service: 07/13/20 Interval History: the patient was seen and evaluated this morning Laying in bed, more alert and oriented to self and place since admission Denies any fever, chills or shortness of breath No reported other overnight events. Systemic review: No fever, chills but feels generally weakness No chest pain, palpitation No shortness of breath or coughing No abdominal pain, nausea or vomiting No urinary symptoms No any rash or wounds Physical Exam Vital Signs: Vital Signs: Last Vital Signs Temp 97.6 F 07/13/20 11:32 Pulse 94 07/13/20 11:32 Resp 18 07/13/20 11:32 BP 170/88 H 07/13/20 11:32 Pulse Ox 98 07/13/20 11:32 Body Mass Index 56.6 Constitutional : More alert and interactive, oriented to self and place, Neck : Normal inspection, Supple Cardiovascular : RRR, S1 S2, no lower extremity edema Respiratory : Decreased bilateral air entry, no crackles, wheezes or rhonchi Gastrointestinal: soft, lax, Normal bowel sounds, Non tender Skin : Warm/Dry, No rash Neurological : Alert and interactive, mildly confused still, oriented to time and place, No focal deficit Objective Data Current Medications Generic Name Dose Route Start Last Admin Trade Name Freq PRN Reason Stop Dose Admin Acetaminophen 650 mg 07/08/20 16:23 Acetaminophen 325 Mg Tablet PO Q6H PRN Pain, Mild (Pain Scale 1-3) Albuterol Sulfate 2 puff 07/09/20 08:29 Albuterol Sulfate 90 Mcg 8 Gm Inhaler INHALE Q4H PRN Shortness Of Breath Amlodipine Besylate 5 mg 07/09/20 09:00 07/13/20 08:53 Amlodipine Besylate 5 Mg Tablet PO 5 mg DAILY AARON Administration Protocol Atorvastatin Calcium 80 mg 07/09/20 21:00 07/12/20 21:56 Atorvastatin Calcium 80 Mg Tablet PO 80 mg BEDTIME AARON Administration Clonazepam 0.5 mg 07/09/20 21:00 07/12/20 21:57 Clonazepam 1 Mg Tablet PO 0.5 mg BEDTIME AARON Administration Clopidogrel Bisulfate 75 mg 07/10/20 09:00 07/13/20 08:52 Clopidogrel Bisulfate 75 Mg Tablet PO 75 mg DAILY AARON Administration Divalproex Sodium 250 mg 07/09/20 09:00 07/13/20 08:52 Divalproex Sodium Er 250 Mg Tab.Er.24h PO 250 mg DAILY AARON Administration Duloxetine HCl 60 mg 07/09/20 09:00 07/13/20 08:52 Duloxetine Hcl 60 Mg Capsule.Dr PO 60 mg DAILY AARON Administration Famotidine 20 mg 07/09/20 09:00 07/13/20 08:53 Famotidine 20 Mg Tablet PO 20 mg BID AARON Administration Heparin Sodium (Porcine) 5,000 unit 07/08/20 16:30 07/13/20 04:14 Heparin Sodium,Porcine 5,000 Unit/Ml Vial SUBCUT 5,000 unit Q12H AARON Administration Metronidazole 500 mg in 100 mls @ 100 mls/hr 07/08/20 23:00 07/13/20 07:20 Flagyl IV Infused Q8H AARON Infusion Ceftriaxone Sodium 1 gm/ 50 mls @ 100 mls/hr 07/09/20 15:00 07/12/20 14:40 Sodium Chloride IV Infused Q24H AARON Infusion Lamotrigine 200 mg 07/08/20 21:00 07/13/20 08:53 Lamotrigine 100 Mg Tablet PO 200 mg BID AARON Administration Losartan Potassium 100 mg 07/11/20 09:00 07/13/20 08:53 Losartan Potassium 50 Mg Tablet PO 100 mg DAILY AARON Administration Protocol Metoprolol Tartrate 75 mg 07/09/20 09:00 07/13/20 08:52 Metoprolol Tartrate 50 Mg Tablet PO 75 mg BID AARON Administration Protocol Ondansetron HCl 4 mg 07/08/20 16:23 Ondansetron Hcl 4 Mg/2 Ml Vial IVPUSH Q8H PRN Nausea and Vomiting Sodium Chloride 3 ml 07/09/20 00:00 07/13/20 07:21 0.9 % Sodium Chloride Flush 3 Ml Syringe IVFLUSH 3 ml QSHIFT AARON Administration Tamsulosin HCl 0.8 mg 07/09/20 21:00 07/12/20 21:56 Tamsulosin Hcl 0.4 Mg Capsule PO 0.8 mg BEDTIME AARON Administration Labs CBC & Chem 7: 07/11/20 06:51 07/12/20 06:57 Microbiology Microbiology Results: Microbiology 07/08/20 11:55 Blood - Venous Blood Culture - Preliminary No growth after 48 hours. 07/08/20 12:05 Blood - Venous Blood Culture - Preliminary No growth after 48 hours. 07/08/20 11:53 Urine [place] Urine Culture - Final Assessment and Plan (1) Acute metabolic encephalopathy: Status: Acute (2) ROBERT (acute kidney injury): Status: Acute (3) 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 hyperplasia: Status: Acute (4) Hypertension: Status: Acute (5) Colonic diverticular abscess: Status: Acute (6) Fall: Status: Acute (7) Sepsis: Status: Acute Assessment and Plan: A 64 years old male with PMH of CAD, stroke, diabetes, BPH among others who presented to the hospital from home with diarrhea, fall and altered mentation. Toxic metabolic encephalopathy Improving Likely multifactorial with infection and multiple medications decreased clonazepam and discontinue gabapentin for now to dc on lower dose of clonazepam continue seizure medications pending valproic and Keppra levels Sepsis,resolved Diverticular abscess Negative C diff test CT scan showing worsening abscess, no fever, chills or elevated WBCs Continue Flagyl and ceftriaxone DC IV fluid Advanced diet as tolerated Surgery input appreciated, no surgical plan, IR will not do aspiration of the fluids Acute kidney injury resolved Creatinine trending down to baseline Discontinue IV fluid Monitor intake and output Hypernatremia Resolved Hold IVF Monitor BMP Atelectasis Secondary to body habitus and decrease activity To do incentive spirometry To do Mucomyst neb Watch for signs of pneumonia Diabetes Hold metformin SSI Fall PT eval prior to d/c CAD s/p stent Continue Plavix, statin, metoprolol Hypertension Continue losartan, metoprolol BPH Continue Flomax Mood Continue risperidone, lamotrigine, duloxetine, Depakote, clonazepam Morbid obesity BMI of 56 which is likely contributing to his atelectasis and general deconditioning DVT PPx Heparin
--- NOTE | 2020-07-13 13:55 | MHC.CM.PN ---
Addendum entered by Carlyn Barnett RN 07/13/20 13:58: /HCP DECEMBER UPDATED ON PATIENTS STATUS AND PLAN TO RETURN TO [facility]. Original Note: CASE DISCUSSED IN MULTI-DISCIPLINARY ROUNDS, PT READY FOR DISCHARGE, [facility] REFERRAL UPDATED, PT TO TRANSFER BACK TO [facility] PENDING INSURANCE AUTHORIZAION, BLS TRANSPORT VIA [facility].
[2020-07-13] MEDS: cefTRIAXone sodium 1 GM in 0.9 % Sodium Chloride 50 ML IV (14:50)
--- NOTE | 2020-07-13 15:37 | PM.DS ---
DS: Providers Provider Date of admission: 07/08/20 16:23 Primary care physician: Unknown Physician Consults: 07/10/20 07:40 Consult to Pulmonology Routine Consulting Provider: [facility] Reason for consultation: Mucomyst usage for atelactasis DS: Diagnosis Discharge Diagnosis (1) Sepsis: Status: Acute (2) Acute metabolic encephalopathy: Status: Acute (3) ROBERT (acute kidney injury): Status: Acute (4) 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 hyperplasia: Status: Acute (5) Hypertension: Status: Acute (6) Colonic diverticular abscess: Status: Acute (7) Fall: Status: Acute DS: Medications Discharge Medications Home Medications: Home Medications Medication Instructions Recorded Confirmed albuterol sulfate 2 puff INHALATION Q4H PRN 06/19/20 07/08/20 atorvastatin 80 mg PO BEDTIME 06/19/20 07/08/20 clopidogrel 75 mg PO DAILY 06/19/20 07/08/20 divalproex 250 mg PO DAILY 06/19/20 07/08/20 duloxetine 60 mg PO DAILY 06/19/20 07/08/20 famotidine 20 mg PO BID 06/19/20 07/08/20 lamotrigine 200 mg PO BID 06/19/20 07/08/20 lancets [OneTouch Delica Plus 06/19/20 06/19/20 Lancet] losartan 100 mg PO DAILY 06/19/20 07/08/20 metformin 500 mg PO BID@0800,1700 06/19/20 07/08/20 metoprolol tartrate 75 mg PO BID 06/19/20 07/08/20 acetaminophen 650 mg PO Q6H PRN 07/08/20 07/08/20 amlodipine 5 mg PO DAILY 07/08/20 07/08/20 bisacodyl [Dulcolax (bisacodyl)] 10 mg MS Q3D PRN 07/08/20 07/08/20 cholecalciferol (vitamin D3) 50 mcg PO DAILY 07/08/20 07/08/20 [Vitamin D3] magnesium hydroxide [Milk of 2,400 mg PO DAILY PRN 07/08/20 07/08/20 Magnesia] Previous Rx's Medication Instructions Recorded tamsulosin 0.8 mg PO BEDTIME #30 cap 07/03/20 clonazepam 0.5 mg PO BEDTIME #0 tab 07/13/20 metronidazole [Flagyl] 500 mg PO Q8H #15 tab 07/13/20 DS: Summary Hospital Course Hospital Course: Admission note HPI A 64 years old male with PMH of CAD, stroke, diabetes, BPH among others who presented to the hospital from home with diarrhea, fall and altered mentation. The patient was recently discharged from the hospital after being treated for diverticulitis and abscess by surgical team. He went to SNF and came back home yesterday. This morning his noticed that he has multiple episode of diarrhea requiring usage of Imodium and while he was going to the bathroom he fell and hit his head. He looks more tired for her and has become almost nonverbal at all. In the emergency he was found to have acute kidney injury with elevated creatinine along with atelectasis bilaterally in his lungs and worsening of the abscess on CT scan of the abdomen and pelvis. Discussed with the surgical team and admitted to the hospital for further evaluation and treatment. Hospital course The patient was admitted to the hospital for evaluation of altered mental status and recurrent falls. It was thought to be secondary to chronic illness and multi pharmacy. Clonazepam was decreased to 0.5 mg daily at bedtime only and gabapentin was discontinued. The patient was treated for hypernatremia and acute kidney injury with kidney failure with good response as his baseline creatinine returned back to normal. His mental status improved during the hospital stay with plan to continue current measures at time of discharge. A CT scan of the abdomen and pelvis was consistent with worsening size of abscess. He was evaluated by the surgical team who recommended no intervention as intervention radiologist deemed it difficult to aspirate the abscess side. Blood cultures remain negative during the hospital stay. He was treated with IV antibiotics of Flagyl and ceftriaxone for 5 days. To be discharged on Flagyl to finish total 10 days. He was noted to have abnormal urine that was treated with ceftriaxone for 5 days. Urine cultures were negative. Time Spent with Patient Time attestation: Total time spent providing and/or coordinating discharge services: Physical Exam Vital Signs: Vital Signs: Last Vital Signs Temp 97.6 F 07/13/20 11:32 Pulse 94 07/13/20 11:32 Resp 18 07/13/20 11:32 BP 170/88 H 07/13/20 11:32 Pulse Ox 98 07/13/20 11:32 Body Mass Index 56.6 Constitutional : More alert and interactive, oriented to self and place, Neck : Normal inspection, Supple Cardiovascular : RRR, S1 S2, no lower extremity edema Respiratory : Decreased bilateral air entry, no crackles, wheezes or rhonchi Gastrointestinal: soft, lax, Normal bowel sounds, Non tender Skin : Warm/Dry, No rash Neurological : Alert and interactive, mildly confused still, oriented to time and place, No focal deficit DS: Data Data Completed and Pending Labs on day of discharge: 07/08/20 11:37 ECG 12 lead EKG Stat EKG Documentation DIRECTED 07/08/20 11:38 CT head/brain wo con Stat 07/08/20 11:39 XR chest 1V Stat 07/08/20 11:45 0.9 % Sodium Chloride [Ns] 1,000 ml IVCONT 999 mls/hr 07/08/20 11:50 CT abdomen pelvis wo con Stat CT chest wo con Stat 07/08/20 11:51 cefTRIAXone sodium [Rocephin] 1 gm 0.9 % Sodium Chloride [Ns] 50 ml IV ONCE 07/08/20 11:53 Urine Culture Stat 07/08/20 11:55 B Type Natriuretic Peptide Stat C Reactive Protein Stat Complete Blood Count Auto Diff Stat D Dimer Stat Drug Screen Urine Stat Hold Lt Blue - Possible Coag Stat Lactic Acid Stat Lipase Stat Magnesium Stat Partial Thromboplastin Time Stat Procalcitonin Stat Prothrombin Time INR Stat SLIDE REVIEW Stat Troponin-I High Sensitivity Stat Blood Culture X2 [BC] Stat 07/08/20 11:57 Basic Metabolic Panel Stat Liver Panel Stat 07/08/20 12:21 cefTRIAXone sodium [Rocephin] 1 gm .ROUTE .STK-MED ONE 07/08/20 12:30 COVID-19 ID NOW ([facility]) Stat 07/08/20 13:45 0.9 % Sodium Chloride [Ns] 1,000 ml IVCONT 999 mls/hr 07/08/20 13:49 Insert Rectal Tube NOW metroNIDAZOLE/NS [Flagyl] 500 mg in 100 ml IV ONCE 07/08/20 16:18 Transfer Order Routine 07/08/20 16:30 0.9 % Sodium Chloride [Ns] 1,000 ml IVCONT 75 mls/hr 07/08/20 16:42 ~Lactic Acid-LAB USE ONLY Stat 07/08/20 Dinner Diabetic Diet 07/09/20 05:54 Basic Metabolic Panel DAILY@0600 Complete Blood Count no Diff DAILY@0600 Prothrombin Time INR DAILY@0600 07/09/20 06:43 CDiff with Reflex to PCR Stat 07/09/20 07:23 Glucose, Whole Blood Routine 07/09/20 08:30 Dextrose 5 % and 0.45 % NaCl [D51/2Ns] 1,000 ml IVCONT 75 mls/hr 07/09/20 09:00 Gabapentin [Neurontin] 100 mg PO BID clonazePAM [KlonoPIN] 1 mg PO BID 07/09/20 11:23 Glucose, Whole Blood Routine 07/09/20 15:22 cefTRIAXone sodium [Rocephin] 1 gm .ROUTE .STK-MED ONE 07/10/20 06:17 Basic Metabolic Panel DAILY@0600 07/10/20 06:18 Complete Blood Count no Diff DAILY@0600 07/10/20 07:39 Acetylcysteine 10 % [Mucomyst 10 %] 400 mg INHALE ONCE ONE 07/10/20 07:55 Glucose, Whole Blood Routine 07/10/20 08:07 Add Laboratory Test Routine 07/10/20 11:06 Valproate Routine 07/10/20 12:04 Glucose, Whole Blood Routine 07/10/20 15:47 cefTRIAXone sodium [Rocephin] 1 gm .ROUTE .STK-MED ONE 07/10/20 16:23 Glucose, Whole Blood Routine 07/10/20 20:46 Glucose, Whole Blood Routine 07/11/20 06:51 Basic Metabolic Panel DAILY@0600 Complete Blood Count no Diff DAILY@0600 07/11/20 07:35 Glucose, Whole Blood Routine 07/11/20 14:40 cefTRIAXone sodium [Rocephin] 1 gm .ROUTE .STK-MED ONE 07/12/20 06:57 Basic Metabolic Panel DAILY@0600 07/12/20 14:07 cefTRIAXone sodium [Rocephin] 1 gm .ROUTE .STK-MED ONE 07/13/20 09:08 COVID-19 ID NOW ([facility]) Urgent 07/13/20 14:40 cefTRIAXone sodium [Rocephin] 1 gm .ROUTE .[facility] ONE Laboratory Last Values WBC 6.8 X10*3/uL (4.8-10.8) 07/11/20 06:51 RBC 4.17 X10*6/uL (4.60-5.80) L 07/11/20 06:51 Hgb 12.4 g/dl (14.0-18.0) L 07/11/20 06:51 Hct 36.9 % (42-52) L 07/11/20 06:51 MCV 88.5 fL (80-98) 07/11/20 06:51 MCH 29.7 pg (27.0-33.0) 07/11/20 06:51 MCHC 33.6 g/dl (31.0-36.0) 07/11/20 06:51 RDW 12.2 % (11.0-16.0) 07/11/20 06:51 Plt Count 279 X10*3/uL (160-400) 07/11/20 06:51 MPV 10.0 fL (9.4-12.4) 07/11/20 06:51 Immature Gran % (Auto) 0.3 % (0.0-0.4) 07/08/20 11:55 Neut % (Auto) 68.9 % (45-73) 07/08/20 11:55 Lymph % (Auto) 15.2 % (20-40) L 07/08/20 11:55 [place] % (Auto) 15.1 % (2-11) H 07/08/20 11:55 Eos % (Auto) 0.2 % (0-4) 07/08/20 11:55 Baso % (Auto) 0.3 % (0-2) 07/08/20 11:55 Lymph # (Auto) 2.1 X10*3/uL (1.2-4.9) 07/08/20 11:55 [place] # (Auto) 2.0 X10*3/uL (0.1-1.2) H 07/08/20 11:55 Eos # (Auto) 0.0 X10*3/uL (0.0-0.4) 07/08/20 11:55 Baso # (Auto) 0.0 X10*3/uL (0.0-0.2) 07/08/20 11:55 Abs Immat Gran (auto) 0.04 X10*3/uL (0.00-0.03) H 07/08/20 11:55 Absolute Neuts (auto) 9.3 X10*3/uL (2.0-8.3) H 07/08/20 11:55 Absolute Nucleated RBC 0.000 X10*3/uL (0.0-0.012) 07/11/20 06:51 Nucleated RBC % (auto) 0.0 /100WBC (0.0-0.2) 07/11/20 06:51 Smear Tech's Comments VERIFIED 07/08/20 11:55 PT 13.2 SEC (10.8-13.0) H 07/09/20 05:54 INR 1.1 (0.9-1.1) 07/09/20 05:54 APTT 30.8 SEC (24.1-38.0) 07/08/20 11:55 D-Dimer 221 NG/ML 07/08/20 11:55 Hold Blue Top SEE NOTE 07/08/20 11:55 Sodium 145 mmol/L (135-145) 07/12/20 06:57 Potassium 3.4 mmol/l (3.3-5.1) 07/12/20 06:57 Chloride 106 mmol/L (96-108) 07/12/20 06:57 Carbon Dioxide 30 mmol/L (22-29) H 07/12/20 06:57 Anion Gap 12 (-) 07/12/20 06:57 BUN 9 mg/dL (9-16) 07/12/20 06:57 Creatinine 0.65 mg/dL (0.5-1.4) 07/12/20 06:57 Estim Creat Clear Calc 181.9 07/12/20 06:57 Estimated GFR > 60 07/12/20 06:57 POC Glucose 116 mg/dL (60-115) H 07/11/20 07:35 Random Glucose 109 mg/dL (60-115) 07/12/20 06:57 Lactic Acid 2.5 mmol/L (0.5-2.0) H* 07/08/20 11:55 Lactic Acid Fup @ 2Hr 1.3 mmol/L (0.5-2.0) 07/08/20 16:42 Calcium 8.6 mg/dL (8.4-10.2) 07/12/20 06:57 Magnesium 2.3 mg/dL (1.6-2.6) 07/08/20 11:55 Total Bilirubin 0.7 mg/dL (0.0-1.0) 07/08/20 11:57 Direct Bilirubin 0.3 mg/dL (0.0-0.5) 07/08/20 11:57 AST 9 U/L (5-37) 07/08/20 11:57 ALT 7 U/L (0-40) 07/08/20 11:57 Alkaline Phosphatase 50 U/L (39-117) 07/08/20 11:57 Troponin I High Sens 7.2 ng/L (<3.5-35.0) 07/08/20 11:55 C-Reactive Protein 7.85 mg/dL (< or = 0.50) H 07/08/20 11:55 B-Natriuretic Peptide 11 pg/mL (<100) 07/08/20 11:55 Total Protein 6.7 g/dL (6.5-8.0) 07/08/20 11:57 Albumin 4.1 g/dL (3.5-5.0) 07/08/20 11:57 Lipase 12 U/L (8-78) 07/08/20 11:55 Procalcitonin 0.45 ng/mL 07/08/20 11:55 Urine Color YELLOW 07/08/20 11:55 Urine Appearance CLOUDY 07/08/20 11:55 Urine pH 5.5 (5.0-8.0) 07/08/20 11:55 Ur Specific [place] >= 1.030 (1.005-1.025) H 07/08/20 11:55 Urine Protein TRACE MG/DL (NEG-TRACE) 07/08/20 11:55 Urine Glucose (UA) NEG MG/DL (NEG) 07/08/20 11:55 Urine Ketones NEG MG/DL (NEG) 07/08/20 11:55 Urine Blood 3+ (NEG) H 07/08/20 11:55 Urine Nitrite NEG (NEG) 07/08/20 11:55 Ur Leukocyte Esterase 1+ (NEG) H 07/08/20 11:55 Urine RBC 10-14 /HPF (0) H 07/08/20 11:55 Urine WBC 30-49 /HPF (0-4) H 07/08/20 11:55 Ur Squamous Epith Cells TRACE /LPF 07/08/20 11:55 Urine Bacteria 1+ /LPF 07/08/20 11:55 Urine Opiates Screen Not Detected (Not Detect) 07/08/20 11:55 Ur Barbiturates Screen Not Detected (Not Detect) 07/08/20 11:55 Valproic Acid 33.4 mcg/mL (50.0-100.0) L 07/10/20 11:06 Ur Phencyclidine Scrn Not Detected (Not Detect) 07/08/20 11:55 Ur Amphetamines Screen Not Detected (Not Detect) 07/08/20 11:55 U Benzodiazepines Scrn Not Detected (Not Detect) 07/08/20 11:55 Urine Cocaine Screen Not Detected (Not Detect) 07/08/20 11:55 U Marijuana (THC) Screen Not Detected (Not Detect) 07/08/20 11:55 C. difficile Toxin A&B Negative (Negative) 07/09/20 06:43 C. difficile Antigen Negative (Negative) 07/09/20 06:43 C. difficile Interpret SEE NOTE 07/09/20 06:43 COVID-19 (AILIN) Negative (Negative) 07/13/20 09:08 COVID-19 Clin Com See Note 07/13/20 09:08 Discharge Plan Discharge Patient Disposition: er SNF Referrals: [facility] [Other] (Transportation) Juanito Gilman [Outside] Yoel Cervantes MD [Physician] - 1 Week (PLEASE CALL AND SCHEDULE A FOLLOW UP APPOINTMENT WITHIN 1 WEEK. OFFICE IS CLOSED DUE TO HOLIDAY.) Discharge Medications: New metronidazole [Flagyl] 500 mg tablet 500 mg PO Q8H Qty: 15 RF: 0 Continued atorvastatin 80 mg tablet 80 mg PO BEDTIME RF: 0 lamotrigine 200 mg tablet 200 mg PO BID RF: 0 clopidogrel 75 mg tablet 75 mg PO DAILY RF: 0 famotidine 20 mg tablet 20 mg PO BID RF: 0 metoprolol tartrate 50 mg tablet 75 mg PO BID RF: 0 albuterol sulfate 90 mcg/actuation HFA aerosol inhaler 2 puff inhalation Q4H PRN (Reason: Shortness Of Breath) RF: 0 losartan 100 mg tablet 100 mg PO DAILY RF: 0 metformin 500 mg tablet extended release 24 hr 500 mg PO BID@0800,1700 RF: 0 divalproex 250 mg tablet extended release 24 hr 250 mg PO DAILY RF: 0 duloxetine 60 mg capsule,delayed release(DR/EC) 60 mg PO DAILY RF: 0 (DME) lancets [OneTouch Delica Plus Lancet] 30 gauge misc MISCELLANEOUS DAILY RF: 0 tamsulosin 0.4 mg Capsule 0.8 mg PO BEDTIME Qty: 30 RF: 0 acetaminophen 325 mg Tablet 650 mg PO Q6H PRN (Reason: FEVER/PAIN) RF: 0 amlodipine 5 mg Tablet 5 mg PO DAILY RF: 0 magnesium hydroxide [Milk of Magnesia] 400 mg/5 mL Suspension 2,400 mg PO DAILY PRN (Reason: Constipation) RF: 0 bisacodyl [Dulcolax (bisacodyl)] 10 mg Suppository 10 mg MS Q3D PRN (Reason: Constipation) RF: 0 cholecalciferol (vitamin D3) [Vitamin D3] 25 mcg (1,000 unit) Tablet 50 mcg PO DAILY RF: 0 Changed clonazepam 1 mg tablet 0.5 mg PO BEDTIME Qty: 0 RF: 0 Discontinued gabapentin 100 mg capsule 100 mg PO BID RF: 0 Hold Instructions: Resume on 07/06/20. Lethargic, on hold Discharge Orders: Discharge Order (Routine); Ordered 07/13/20 Ordered By: Parker Baker Diet: advance to usual diet Activity on Discharge: As tolerated Visit Report Forms: Patient Portal Discharge page Care Plan Goals: Read below Health Concerns: Read below Plan of Treatment: You were admitted to the hospital for evaluation of altered mentation, falls and diarrhea. You were treated for diverticular abscess with IV antibiotics as CT scan of the abdomen showed worsening of the size. Evaluated by surgery who recommended no intervention at this point. To continue Flagyl to finish total of 10 days of antibiotics. Your mental status improved significantly after decreasing the dose of clonazepam and stopping gabapentin. Will continue that at time of discharge. You were noticed to have kidney injury and dehydration which was treated with IV fluid and improved back to baseline. To be discharged to short-term rehab to work on your physical strength.
--- NOTE | 2020-07-13 15:51 | MHC.CM.PN ---
PT DISCHARGING TO [facility] TODAY, BLS TRANSPORT VIA [facility] AT 1630. /HCP JUAN M NOTIFIED AT [id number].
[2020-07-14 11:53] LABS: Lamotrigine Lamictal 17.9 mcg/mL (4.0-18.0)
== END 2020-07-13 16:45 | disposition skilled nursing facility (03) | DRG 720 ==
LOC: HO.ED 16:38 → HO.S3 16:43
PROVIDERS: Physician Assistant; Admitting Provider Student in an Organized Health Care Education/Training Program; Emergency Provider Emergency Medicine; Visit Provider Student in an Organized Health Care Education/Training Program
DX: A41.9 Sepsis, unspecified organism (principal); G92 Toxic encephalopathy; K57.20 Diverticulitis of large intestine with perforation and abscess without bleeding; E66.01 Morbid (severe) obesity due to excess calories; E87.0 Hyperosmolality and hypernatremia; E86.0 Dehydration; I25.10 Atherosclerotic heart disease of native coronary artery without angina pectoris; F41.9 Anxiety disorder, unspecified; E11.9 Type 2 diabetes mellitus without complications; N40.1 Benign prostatic hyperplasia with lower urinary tract symptoms; J98.11 Atelectasis; R33.8 Other retention of urine; I10 Essential (primary) hypertension; Z68.43 Body mass index [BMI] 50.0-59.9, adult; Z86.73 Personal history of transient ischemic attack (TIA), and cerebral infarction without residual deficits; Z20.828 Contact with and (suspected) exposure to other viral communicable diseases; Z79.84 Long term (current) use of oral hypoglycemic drugs; Z79.899 Other long term (current) drug therapy
CPT/HCPCS: 36415; 70450; 71045; 71250; 74176; 80048; 80076; 80164; 80175; 80307; 81001; 82947; 83605; 83690; 83735; 83880; 84145; 84484; 85025; 85027; 85379; 85610; 85730; 86140; 87040; 87086; 87324; 87449; 87635; 93005; 94640; 96361; 96374; 96375; 97110; 97162; 99284; 99291; J0696

== ENCOUNTER 2020-07-23 16:15 | Emergency (ER) | payer MEDICARE, MEDICAID, SELFPAY ==
[2020-07-23 16:36] VITALS: BP 132/74; BP 141/88; PULSE 78; PULSE 80; RESP 16; TEMP 36.6; O2SAT 100; O2SAT 97; BMI 25.2
--- NOTE | 2020-07-23 17:06 | ED_ITS ---
HPI - Fall General Chief Complaint: Fall Stated Complaint: INC WEAKNESS/LETHARGY,MULTI FALLS IN 24HRS PER SNF Time Seen by Provider: 07/23/20 17:01 Source: EMS Mode of arrival: EMS Limitations: altered mental status History of Present Illness HPI Narrative: Patient with history of coronary disease CVA diabetes diverticulitis perforation and sepsis been in assisted for last 2 months was readmitted and discharged on 07/13 for metabolic encephalopathy and multiple falls ROBERT with diverticular abscess treated with IV Flagyl and Rocephin and discharged on flagyl comes back for increased weakness and fell 3- 4 times during last 1 week. Patient started on Bactrim for UTI yesterday complaint: fall Onset (ago): hour(s) Fall from: standing Fall witnessed: no Place fall occurred: assisted/SNF Loss of consciousness: none Related Data Home Medications Medication Instructions Recorded Confirmed albuterol sulfate 2 puff INHALATION Q4H PRN 06/19/20 07/23/20 atorvastatin 80 mg PO BEDTIME 06/19/20 07/23/20 clopidogrel 75 mg PO DAILY 06/19/20 07/23/20 divalproex 250 mg PO DAILY 06/19/20 07/23/20 duloxetine 60 mg PO DAILY 06/19/20 07/23/20 famotidine 20 mg PO BID 06/19/20 07/23/20 lamotrigine 200 mg PO BID 06/19/20 07/23/20 lancets [OneTouch Delica Plus 06/19/20 06/19/20 Lancet] losartan 100 mg PO DAILY 06/19/20 07/23/20 metformin 500 mg PO BID@0800,1700 06/19/20 07/23/20 metoprolol tartrate 75 mg PO BID 06/19/20 07/23/20 acetaminophen 650 mg PO Q6H PRN 07/08/20 07/23/20 amlodipine 5 mg PO DAILY 07/08/20 07/23/20 bisacodyl [Dulcolax (bisacodyl)] 10 mg NE Q3D PRN 07/08/20 07/23/20 cholecalciferol (vitamin D3) 50 mcg PO DAILY 07/08/20 07/23/20 [Vitamin D3] clonazepam 0.5 mg PO BEDTIME 07/23/20 07/23/20 dextrose [Glucose Gel] 10 g PO Q15M PRN 07/23/20 07/23/20 glucagon HCl [Glucagon (HCl) 1 mg SUBCUT Q20M PRN 07/23/20 07/23/20 Emergency Kit] magnesium hydroxide [Milk of 30 ml PO DAILY PRN 07/23/20 07/23/20 Magnesia] ondansetron HCl [Zofran] 4 mg PO Q8H PRN 07/23/20 07/23/20 risperidone [Risperdal] 1 mg PO DAILY 07/23/20 07/23/20 sulfamethoxazole-trimethoprim 1 tab PO DAILY 07/23/20 07/23/20 [Bactrim DS] Previous Rx's Medication Instructions Recorded tamsulosin 0.8 mg PO BEDTIME #30 cap 07/03/20 amoxicillin-pot clavulanate 1 tab PO BID #28 tab 07/23/20 [Augmentin] Allergies Allergy/AdvReac Type Severity Reaction Status Date / Time lisinopril [LISINOPRIL] Allergy Unknown MUSCLE Verified 06/01/20 11:58 ACHES pregabalin [From LYRICA] Allergy Unknown UNKNOWN Verified 06/01/20 11:58 Review of Systems Review of Systems: Yes Unobtainable due to mental status Neurologic: Reports confusion Psychiatric: Psychiatric: Reports confusion PMFSH Past Medical History Medical History Anxiety BPH (benign prostatic hyperplasia) Coronary artery disease COVID-19 Diabetes Fall High blood cholesterol Hyperlipidemia Hypertension Intracranial atherosclerosis Perforation of sigmoid colon due to diverticulitis Stroke 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 hyperplasia Surgical History H/O neck surgery History of heart artery stent Family History Family History Other Coronary artery disease Diabetes Social History Social History Household Members: Unknown / Unable to assess Housing: Unknown / Unable to assess Alcohol intake: never Smoking Status: Unknown if ever smoked Smoked in Last 30 Days: No Use of substances other than those prescribed or required for medical reasons: No Advance Directives: No Advance Directives Information Provided: Yes service: No Current occupational status: unemployed Physical Exam Vital Signs: Vital Signs: Last Vital Signs Temp 98.2 F 07/23/20 22:00 Pulse 104 H 07/23/20 22:00 Resp 17 07/23/20 22:00 BP 145/98 H 07/23/20 22:00 Pulse Ox 97 07/23/20 22:00 Body Mass Index 25.2 Const: General: comfortable, no acute distress and confusion Nutritional Appearance: average body habitus Orientation/consciousness: oriented to person, oriented to place and confusion HENMT: Head: Yes normocephalic and Yes atraumatic Ears: hearing grossly normal bilaterally General nose exam: Normal external nose present Face and sinus: Yes normal facial exam Eyes: General: appearance normal, both eyes and all related structures Neck: Neck: Yes normal visual inspection and Yes full ROM Chest: Chest palpation & inspection: normal palpation of entire chest wall Resp: Effort & Inspection: normal respiratory effort Auscultation: clear to auscultation bilaterally, no crackles and no rales Cardio: Rate: regular rate Rhythm: regular rhythm Heart sounds: S1 normal heart sound present and S2 normal heart sound present GI: Inspection: Yes normal to inspection Palpation (GI): Soft to palpation, nontender and no guarding : General: No CVA tenderness Back/Spine/Pelvis: Back: No CVA tenderness Thoracic/Lumbar Spine: thoracic and lumbar spine normal to inspection Skin: General skin exam: no rashes or lesions noted Neuro: General: oriented to person, oriented to place, no focal motor deficits, CN's II-XI intact bilaterally and confusion Motor exam (neuro): Pronator motor function not present Course Course Course Narrative: Patient with generalized weakness multiple fall from assisted workup showed slightly elevated lactic acid level 2.8 CT scan of the abdomen showed decreasing size of diverticular abscess notable left shift no WBC count increased urine is negative in straight cath sample lactic acidosis improved after IV hydration to 2.1. Will discharge patient back to assisted on Augmentin for diverticular chronic abscess. Case discussed with patient's family agreed for plan will follow-up with primary care doctor MDM - Fall Differential Diagnosis Differential diagnosis: Likely concussion without loss of consciousness Medical Records Attestation: I reviewed the patient's medical records. Lab Data Attestation: I reviewed the patient's lab results. Labs: Lab Results 07/23/20 07/23/20 07/23/20 Range/Units 18:23 18:23 21:02 Lactic Acid 2.8 H* (0.5-2.0) mmol/L Lactic Acid Fup @ 2Hr Troponin I High Sens 12.8 D (<3.5-35.0) ng/L Urine Color YELLOW Urine Appearance CLEAR Urine pH 6.0 (5.0-8.0) Ur Specific [place] 1.010 (1.005-1.025) Urine Protein NEG (NEG-TRACE) MG/DL Urine Glucose (UA) NEG (NEG) MG/DL Urine Ketones NEG (NEG) MG/DL Urine Blood 3+ H (NEG) Urine Nitrite NEG (NEG) Ur Leukocyte Esterase NEG (NEG) Urine RBC 10-14 H (0) /HPF Urine WBC 0 (0-4) /HPF Ur Squamous Epith Cells 1+ /LPF Urine Bacteria 1+ /LPF 07/23/20 07/23/20 07/23/20 Range/Units 21:05 21:12 21:14 Lactic Acid 2.1 H* (0.5-2.0) mmol/L Lactic Acid Fup @ 2Hr Cancelled Troponin I High Sens 12.8 (<3.5-35.0) ng/L Urine Color Urine Appearance Urine pH (5.0-8.0) Ur Specific [place] (1.005-1.025) Urine Protein (NEG-TRACE) MG/DL Urine Glucose (UA) (NEG) MG/DL Urine Ketones (NEG) MG/DL Urine Blood (NEG) Urine Nitrite (NEG) Ur Leukocyte Esterase (NEG) Urine RBC (0) /HPF Urine WBC (0-4) /HPF Ur Squamous Epith Cells /LPF Urine Bacteria /LPF ECG Data Attestation: I personally reviewed and interpreted this ECG as follows: Interpretation: Normal sinus rhythm ventricular rate 86 beats per minute no acute ST T wave changes normal axis normal intervals. Normal EKG Discharge Plan Discharge Clinical Impression: Weakness, Frequent falls, Diverticulosis of colon Patient Disposition: [facility] Instructions: Diverticulosis (ED), Fall Prevention for Older Adults (ED), Weakness (ED) Additional Instructions: Stop metformin as it is causing lactic acidosis Check blood sugar on a regular basis and use insulin per sliding scale per protocol Start antibiotic Augmentin 875 mg twice daily for 14 days Prescriptions: New amoxicillin-pot clavulanate [Augmentin] 875-125 mg tablet 1 tab PO BID Qty: 28 RF: 0 No Action atorvastatin 80 mg tablet 80 mg PO BEDTIME RF: 0 lamotrigine 200 mg tablet 200 mg PO BID RF: 0 clopidogrel 75 mg tablet 75 mg PO DAILY RF: 0 famotidine 20 mg tablet 20 mg PO BID RF: 0 metoprolol tartrate 50 mg tablet 75 mg PO BID RF: 0 albuterol sulfate 90 mcg/actuation HFA aerosol inhaler 2 puff inhalation Q4H PRN (Reason: Shortness Of Breath) RF: 0 losartan 100 mg tablet 100 mg PO DAILY RF: 0 metformin 500 mg tablet extended release 24 hr 500 mg PO BID@0800,1700 RF: 0 divalproex 250 mg tablet extended release 24 hr 250 mg PO DAILY RF: 0 duloxetine 60 mg capsule,delayed release(DR/EC) 60 mg PO DAILY RF: 0 (DME) lancets [OneTouch Delica Plus Lancet] 30 gauge misc MISCELLANEOUS DAILY RF: 0 tamsulosin 0.4 mg Capsule 0.8 mg PO BEDTIME Qty: 30 RF: 0 clonazepam 0.5 mg Tablet 0.5 mg PO BEDTIME RF: 0 sulfamethoxazole-trimethoprim [Bactrim DS] 800-160 mg Tablet 1 tab PO DAILY RF: 0 dextrose [Glucose Gel] 40 % Gel 10 g PO Q15M PRN (Reason: BLOOD SUGAR <60) RF: 0 Glucagon (HCl) Emergency Kit 1 mg Recon Soln 1 mg SUBCUT Q20M PRN (Reason: BLOOD SUGAR < 60) RF: 0 magnesium hydroxide [Milk of Magnesia] 400 mg/5 mL Suspension 30 ml PO DAILY PRN (Reason: Constipation) RF: 0 ondansetron HCl [Zofran] 4 mg Tablet 4 mg PO Q8H PRN (Reason: Nausea) RF: 0 risperidone [Risperdal] 1 mg Tablet 1 mg PO DAILY RF: 0 acetaminophen 325 mg Tablet 650 mg PO Q6H PRN (Reason: FEVER/PAIN) RF: 0 amlodipine 5 mg Tablet 5 mg PO DAILY RF: 0 bisacodyl [Dulcolax (bisacodyl)] 10 mg Suppository 10 mg NE Q3D PRN (Reason: Constipation) RF: 0 cholecalciferol (vitamin D3) [Vitamin D3] 25 mcg (1,000 unit) Tablet 50 mcg PO DAILY RF: 0 Interventions: ED Discharge Assessment Last Done: 07/23/20 22:45
--- NOTE | 2020-07-23 18:02 | ECG_ITS ---
Test Reason : AMS Blood Pressure : / mmHG Vent. Rate : 086 BPM Atrial Rate : 086 BPM P-R Int : 180 ms QRS Dur : 096 ms QT Int : 406 ms P-R-T Axes : 061 -21 077 degrees QTc Int : 485 ms Normal sinus rhythm Normal ECG When compared with ECG of 08-JUL-2020 12:35, Nonspecific T wave abnormality no longer evident in Inferior leads Referred By: Axel Weller Electronically Signed By:Isaias Bah
--- NOTE | 2020-07-23 18:03 | CT_ITS ---
EXAMINATION: CT HEAD WITHOUT CONTRAST CT CERVICAL SPINE WITHOUT CONTRAST CLINICAL INFORMATION: Fall. COMPARISON: CT head 07/08/2020 TECHNIQUE: Imaging was performed from the skull base to vertex without intravenous administration of contrast. In addition, helical noncontrast CT imaging was acquired through the cervical spine and source images were reviewed along with axial reconstructions and sagittal and coronal MPRs. Coronal and sagittal reformatted images are performed at CT scanner [This CT examination was performed using dose optimization techniques as appropriate, variously including the following: *Automated exposure control *Adjustment of mA and/or kV according to patient size (this includes techniques or standardized protocols for targeted exams where dose is matched to indication/reason for exam; i.e. extremities or head) *Use of iterative reconstruction technique] DLP: 1147 mGy-cm FINDINGS: HEAD: There is a small left frontal scalp hematoma. There is no skull fracture. No intracranial mass, hemorrhage, or midline shift is visualized. The ventricles and sulci are age-appropriate. No extra-axial collections are identified. The paranasal sinuses and mastoid air cells are well aerated. CERVICAL SPINE: There is no evidence of acute cervical spine fracture. Vertebral bodies remain normal in height. Cervical vertebrae have normal alignment. Status post anterior fusion of the C5-C7 vertebrae. There is mild cervical disc height narrowing C4-C5. There is bilateral facet joint arthrosis most significant at the left C4-C5 facet joint. No pre- or paravertebral soft tissue abnormality is identified. Limited assessment of the lung apices is unremarkable. CT/CT cervical spine wo con IMPRESSION: 1. No acute intracranial pathology. 2. No CT evidence of acute cervical spine fracture or traumatic subluxation
--- NOTE | 2020-07-23 18:05 | XR_ITS ---
EXAMINATION: XR CHEST CLINICAL INFORMATION: Weakness COMPARISON: Chest radiograph 07/08/[address] 07/08/2020 TECHNIQUE: Frontal view of the chest was obtained. FINDINGS: Since the prior study, lung volumes have increased and now appear normal and there is been clearing of previously noted bibasilar atelectasis. At this time significant abnormality is noted involving the heart, lungs, mediastinum, or soft tissues. Marked degenerative changes present in the right shoulder. XR/XR chest 1V IMPRESSION: No acute intrathoracic disease.
--- NOTE | 2020-07-23 18:27 | XR_ITS ---
EXAMINATION: XR PELVIS CLINICAL INFORMATION: Pelvic pain status post fall COMPARISON: CT abdomen pelvis 07/08/2020 TECHNIQUE: AP view of the pelvis. FINDINGS: Mild degenerative changes are present in the lower lumbar spine as well as both hips, right greater than left. No fracture. Sacroiliac joints are normal. Pubic symphysis is unremarkable. No abnormal soft tissue calcifications. XR/XR pelvis 1-2V IMPRESSION: No evidence of acute traumatic injury. Degenerative changes in both hips, right greater than left and lower spine.
[2020-07-23] MEDS: 0.9 % Sodium Chloride 1,000 ML 999 ML IVCONT (18:30)
[2020-07-23 18:56] LABS: Lactic Acid 2.8 mmol/L (0.5-2.0)
[2020-07-23 18:58] LABS: Troponin-I High Sensitivity 12.8 ng/L (<3.5-35.0)
[2020-07-23 19:22] VITALS: BP 184/98; PULSE 89; RESP 12; TEMP 36.6; O2SAT 98
--- NOTE | 2020-07-23 19:26 | CT_ITS ---
EXAMINATION: CT ABDOMEN AND PELVIS WITHOUT CONTRAST CLINICAL INFORMATION: Lactic acidosis. Diverticular abscess. COMPARISON: Multiple prior studies. Most recent exam CT scan abdomen pelvis 07/08/2020 TECHNIQUE: Multidetector volumetric imaging was performed from the superior aspect of the liver through the pubic symphysis. Sagittal and coronal reformatted images were obtained on the technologist's workstation. This CT examination was performed using dose optimization techniques as appropriate, variously including the following: *Automated exposure control *Adjustment of mA and/or kV according to patient size (this includes techniques or standardized protocols for targeted exams where dose is matched to indication/reason for exam; i.e. extremities or head) *Use of iterative reconstruction technique DLP: 608 mGy-cm FINDINGS: LUNG BASES: Lung bases are normally aerated. No pleural effusion. Heart size is mildly enlarged. LIVER, GALLBLADDER, AND BILIARY TREE: The liver is normal in size, shape, and attenuation. No focal hepatic lesion or biliary ductal dilatation is present. The gallbladder is unremarkable with no evidence of radiopaque gallstones, gallbladder wall thickening, or obvious pericholecystic inflammatory changes. PANCREAS: Unremarkable. SPLEEN: Unremarkable. ADRENAL GLANDS: Unremarkable. KIDNEYS AND URETERS: The kidneys are normal in size, shape, and attenuation. No hydronephrosis, hydroureter, or calculi seen. No perinephric stranding. BLADDER: Unremarkable. GASTROINTESTINAL TRACT: There are scattered diverticula of the sigmoid colon and left colon. On prior CAT scans of June 2020 there is a pericolonic collection within air-fluid level at the sigmoid colon. This remains present. This measures about 2 x 2 by 4 cm on today's study. On the CAT scan exam of 07/08/2020 this measured 3.7 x 4.7 x 7 cm. No significant inflammation no in the pericolonic fat is now present. There is no bowel obstruction. There is a moderate volume of stool in the colon. The appendix is normal . The small bowel loops are unremarkable. The stomach is normal. There is no hiatal hernia. ABDOMINAL WALL: No significant hernia is appreciated. LYMPH NODES: Normal. VASCULAR: Atherosclerotic vascular calcifications of the aorta and iliac arteries and of the splenic artery. There is no aneurysm. PELVIC VISCERA: Prostate measures 3.5 cm transverse. Coarse calcifications within the prostate. OSSEOUS STRUCTURES: Multilevel generous spondylosis of the spine. CT/CT abdomen pelvis wo con IMPRESSION: There is a persistent air-fluid level in a pocket the pericolonic fat adjacent to the sigmoid colon which is been seen on prior exams June 2020. This is a little smaller than the prior exam of 07/08/2020. There is no significant edema in the surrounding fat however. There is no new abscess or inflammation.
[2020-07-23] MEDS: cefTRIAXone sodium 1 GM in 0.9 % Sodium Chloride 50 ML IV (19:37)
[2020-07-23 20:26] LABS: Reflex Lactate? Lactic Acid Added
[2020-07-23 21:13] LABS: Glucose Urine UA NEG (NEG); Leukocyte Esterase Urine NEG (NEG); Nitrite Urine NEG (NEG); Urine Blood 3+ (NEG); Urine Ketones NEG (NEG); Urine Protein NEG (NEG-TRACE)
[2020-07-23 21:15] LABS: Appearance Urine CLEAR; Color Urine YELLOW
[2020-07-23 21:20] LABS: Bacteria Urine 1+ /LPF; Squamous Epithelial Cell Urine 1+ /LPF; WBC Urine 0 /HPF (0-4)
[2020-07-23 21:47] LABS: Troponin-I High Sensitivity 12.8 ng/L (<3.5-35.0)
[2020-07-23 21:56] LABS: Lactic Acid 2.1 mmol/L (0.5-2.0)
[2020-07-23 22:00] VITALS: BP 145/98; PULSE 104; RESP 17; TEMP 36.8; O2SAT 97
[2020-07-23 23:39] LABS: Reflex Lactate? Lactic Acid Added
== END 2020-07-23 23:42 | disposition skilled nursing facility (03) ==
PROVIDERS: Emergency Provider Internal Medicine
DX: R53.1 Weakness (principal); K57.30 Diverticulosis of large intestine without perforation or abscess without bleeding; R29.6 Repeated falls; E11.9 Type 2 diabetes mellitus without complications; I10 Essential (primary) hypertension; Z86.16 Personal history of COVID-19; Z86.73 Personal history of transient ischemic attack (TIA), and cerebral infarction without residual deficits
CPT/HCPCS: 36415; 70450; 71045; 72125; 72170; 74176; 81001; 83605; 84484; 87040; 93005; 96361; 96365; 99284; J0696

== ENCOUNTER 2020-10-29 10:50 | Outpatient (REF) | payer MEDICARE, MEDICAID, SELFPAY ==
[2020-10-29 11:26] LABS: COVID-19 Test Negative (Negative)
== END 2020-10-29 10:51 | disposition home or self-care (01) ==
LOC: HO.LAB 10:50
PROVIDERS: Visit Provider Internal Medicine
DX: Z20.822 Contact with and (suspected) exposure to COVID-19 (principal)
CPT/HCPCS: 36415; 87635; C9803

== ENCOUNTER 2021-03-30 10:58 | Outpatient (REF) | payer MEDICARE, MEDICAID, SELFPAY | END 2021-03-30 10:59 | disposition home or self-care (01) | LOC: HO.LAB 10:58 | PROVIDERS: Visit Provider Internal Medicine | DX: Z20.822 Contact with and (suspected) exposure to COVID-19 (principal) | CPT/HCPCS: C9803; U0003; U0005 ==

== ENCOUNTER 2021-10-02 23:23 | Emergency (ER) | payer MEDICARE, MEDICAID, SELFPAY ==
--- NOTE | ~2021-10-02 | CT_ITS ---
EXAMINATION: CT ANGIOGRAM OF THE CHEST WITH AND WITHOUT CONTRAST (CT PULMONARY ANGIOGRAM FOR PE) CLINICAL INFORMATION: Reason for Exam Post COVID hypoxia COMPARISON: 07/23/[address] from 07/08/2020. TECHNIQUE: Prior to contrast administration, noncontrast localization images were obtained. Subsequently, multidetector volumetric imaging was performed from the thoracic inlet to below the diaphragms following the administration of 75 mL Omnipaque 350 intravenous contrast. No contrast reaction reported Sagittal, coronal, and MIP oblique sagittal reformatted images were obtained on the CT workstation, uploaded to PACS, and reviewed. This CT examination was performed using dose optimization techniques as appropriate, variously including the following: *Automated exposure control *Adjustment of mA and/or kV according to patient size (this includes techniques or standardized protocols for targeted exams where dose is matched to indication/reason for exam; i.e. extremities or head) *Use of iterative reconstruction technique Total exam dose-length product 493 mGy-cm FINDINGS: QUALITY OF STUDY/CONTRAST BOLUS: Satisfactory. PULMONARY ARTERIES: No central or segmental pulmonary emboli. THORACIC AORTA: No aneurysm or dissection. LUNG: No focal consolidation, nodules or masses. The central airways are patent. PLEURA: No pleural effusion or pneumothorax. Mild pleural thickening at the lung bases. MEDIASTINUM: Normal heart size. Coronary artery calcifications. No pericardial effusion. No hilar or mediastinal lymphadenopathy. No evidence of septal bowing or right heart strain. CHEST WALL/AXILLA: No axillary or internal mammary lymphadenopathy. OSSEOUS STRUCTURES: No acute or suspicious osseous abnormality. Cervical spinal fusion hardware. Mild degenerative changes of the thoracic spine. Advanced degenerative changes at the right glenohumeral joint. UPPER ABDOMEN: Unremarkable. No reflux of contrast into the hepatic veins to suggest elevated right heart pressures. CT/CT angio chest PE protocol IMPRESSION: No pulmonary embolism or other acute intrathoracic abnormality. VTE: negative
--- NOTE | ~2021-10-02 | CT_ITS ---
EXAMINATION: CT HEAD WITHOUT CONTRAST CLINICAL INFORMATION: Worsening of left-sided weakness COMPARISON: 07/23/2020 TECHNIQUE: Contiguous axial imaging was performed from the skull base to vertex without intravenous contrast. This CT examination was performed using dose optimization techniques as appropriate, variously including the following: * Automated exposure control * Adjustment of mA and/or kV according to patient size (this includes techniques or standardized protocols for targeted exams where dose is matched to indication/reason for exam; i.e. extremities or head) Use of iterative reconstruction technique DLP: 818 mGy-cm. FINDINGS: There is no evidence of acute intracranial hemorrhage or territorial infarction. No abnormal mass effect or midline shift is seen. [place] to white matter differentiation is well preserved. No extra-axial fluid collections are identified. No hydrocephalus. Proportional prominence of the ventricles and sulcal spaces is consistent with mild volume loss. Patchy periventricular and deep white matter hypoattenuation is consistent with mild small vessel ischemic changes. The osseous structures and soft tissues are normal. The mastoid air cells and visualized portions of the paranasal sinuses are well aerated. CT/CT head/brain wo con IMPRESSION: No acute intracranial pathology.
[2021-10-02 23:33] VITALS: BP 164/86; BP 176/96; PULSE 80; PULSE 82; RESP 16; TEMP 36.7; O2SAT 95; BMI 28.7
--- NOTE | 2021-10-02 23:53 | ED_ITS ---
HPI - Extremity Problem General Chief complaint: Extremity Injury, Lower Stated complaint: SOB Time Seen by Provider: 10/02/21 23:52 Source: patient Mode of arrival: ambulatory Limitations: no limitations History of Present Illness HPI Narrative: Patient is 66-year-old with history of CAD, stroke diabetes BPH obstructive sleep apnea on CPAP at night with recurrent COVID infection x3 last 1 was about 10 days ago already been vaccinated including the booster dose against COVID comes as for last 3 days been feeling weak did not get up from the bed today he went for a walk and complaining of pain in the legs feel weak POC was 477 , patient took his insulin earlier in the evening after arrival patient pulse ox noticed to be 89% at room air patient does not feel shortness of breath no cough no chest pain just feels weak all over Related Data Home Medications Medication Instructions Recorded Confirmed albuterol sulfate 90 mcg/actuation 2 puff INHALATION Q4H PRN 06/19/20 07/23/20 aerosol inhaler atorvastatin 80 mg tablet 80 mg PO BEDTIME 06/19/20 07/23/20 clopidogrel 75 mg tablet 75 mg PO DAILY 06/19/20 07/23/20 divalproex 250 mg tablet,extended 250 mg PO DAILY 06/19/20 07/23/20 release 24 hr duloxetine 60 mg capsule,delayed 60 mg PO DAILY 06/19/20 07/23/20 release famotidine 20 mg tablet 20 mg PO BID 06/19/20 07/23/20 lamotrigine 200 mg tablet 200 mg PO BID 06/19/20 07/23/20 lancets 30 gauge (OneTouch Delica 06/19/20 06/19/20 Plus Lancet) losartan 100 mg tablet 100 mg PO DAILY 06/19/20 07/23/20 metformin 500 mg tablet,extended 500 mg PO BID@0800,1700 06/19/20 07/23/20 release 24 hr metoprolol tartrate 50 mg tablet 75 mg PO BID 06/19/20 07/23/20 acetaminophen 325 mg tablet 650 mg PO Q6H PRN 07/08/20 07/23/20 amlodipine 5 mg tablet 5 mg PO DAILY 07/08/20 07/23/20 bisacodyl 10 mg rectal suppository 10 mg MN Q3D PRN 07/08/20 07/23/20 (Dulcolax (bisacodyl)) cholecalciferol (vitamin D3) 25 50 mcg PO DAILY 07/08/20 07/23/20 mcg (1,000 unit) tablet (Vitamin D3) clonazepam 0.5 mg tablet 0.5 mg PO BEDTIME 07/23/20 07/23/20 dextrose 40 % oral gel (Glucose 10 g PO Q15M PRN 07/23/20 07/23/20 Gel) glucagon HCl 1 mg solution for 1 mg SUBCUT Q20M PRN 07/23/20 07/23/20 injection (Glucagon (HCl) Emergency Kit) magnesium hydroxide 400 mg/5 mL 30 ml PO DAILY PRN 07/23/20 07/23/20 oral suspension (Milk of Magnesia) ondansetron HCl 4 mg tablet 4 mg PO Q8H PRN 07/23/20 07/23/20 (Zofran) risperidone 1 mg tablet (Risperdal) 1 mg PO DAILY 07/23/20 07/23/20 sulfamethoxazole 800 1 tab PO DAILY 07/23/20 07/23/20 mg-trimethoprim 160 mg tablet (Bactrim DS) Previous Rx's Medication Instructions Recorded tamsulosin 0.4 mg capsule 0.8 mg PO BEDTIME #30 cap 07/03/20 amoxicillin 875 mg-potassium 1 tab PO BID #28 tab 07/23/20 clavulanate 125 mg tablet (Augmentin) Allergies Allergy/AdvReac Type Severity Reaction Status Date / Time lisinopril [LISINOPRIL] Allergy Unknown MUSCLE Verified 06/01/20 11:58 ACHES pregabalin [From LYRICA] Allergy Unknown UNKNOWN Verified 06/01/20 11:58 Review of Systems Review of Systems: Yes all other systems are reviewed and are negative [facility] Past Medical History Medical History Anxiety BPH (benign prostatic hyperplasia) Coronary artery disease COVID-19 Diabetes Fall High blood cholesterol Hyperlipidemia Hypertension Intracranial atherosclerosis Perforation of sigmoid colon due to diverticulitis Stroke 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 hyperplasia Surgical History H/O neck surgery History of heart artery stent Family History Family History Other Coronary artery disease Diabetes Social History Social History Household Members: Unknown / Unable to assess Housing: Unknown / Unable to assess Do you presently have visiting nurse or other home services: No (unknown) Unable to assess alcohol history related to: Unknown Alcohol intake: never Patient Tobacco Use Status: Tobacco use Unknown Use of substances other than those prescribed or required for medical reasons: No Advance Directives: No Advance Directives Information Provided: No service: No Current occupational status: unemployed Physical Exam Vital Signs: Vital Signs: Last Vital Signs Temp 98.2 F 10/03/21 00:10 Pulse 82 10/03/21 03:53 Resp 14 10/03/21 03:53 BP 172/84 H 10/03/21 00:10 Pulse Ox 99 10/03/21 00:10 BMI result Body Mass Index 28.7 Appearance: Alert. Oriented X3. No acute distress. Obese Eyes: No pallor icterus ENT: Pharynx normal. Oral Mucosa moist Neck: Normal inspection. Neck supple. CVS: Normal heart rate and rhythm. Pulses normal. Respiratory: No respiratory distress. Equal air entry bilateral, no wheezing/rales/rhonchi Abdomen: Soft and nontender. Bowel sounds are present, no mass palpable, no CVA tenderness Skin: Skin warm and dry. Normal skin color. Normal skin turgor. Extremities: No lower extremity edema. No calf tenderness Neuro: Oriented X 3. Residual left-sided weakness MDM - Extremity (Nontraumatic) MDM Narrative Medical decision making narrative: Patient pulse ox dropped to 89% at room air has history of obstructive sleep apnea CTA chest negative for PE or any infiltrate will discharge patient home feeling better now ambulatory in the ER Per patient's patient has been feeling more weak for last 3 days difficulty in walking lying in the bed in the ER patient had slight difficulty in walking but able to ambulate had previous stroke with left-sided weakness CT head was done which was negative for any acute change and weakness been there for 3 days no slurred speech or increased weakness noticed in the ER. Patient refused to go to rehab discharge patient home Lab Data Attestation: I reviewed the patient's lab results. Result diagrams: 10/03/21 00:40 10/03/21 00:40 Labs: Lab Results 10/03/21 10/03/2110/03/22 Range/Units 00:17 00:40 00:40 WBC 6.7 (4.8-10.8) X10*3/uL RBC 4.54 L (4.60-5.80) X10*6/uL Hgb 12.4 L (14.0-18.0) g/dl Hct 38.6 L (42.0-52.0) % MCV 85.0 (80.0-98.0) fL MCH 27.3 (27.0-33.0) pg MCHC 32.1 (31.0-36.0) g/dl RDW 13.2 (11.0-16.0) % Plt Count 152 L (160-400) X10*3/uL MPV 11.0 (9.4-12.4) fL Immature Gran % (Auto) 0.3 (0.0-0.4) % Neut % (Auto) 56.9 (45-73) % Lymph % (Auto) 29.2 (20-40) % Cross % (Auto) 9.7 (2-11) % Eos % (Auto) 3.6 (0-4) % Baso % (Auto) 0.3 (0-2) % Lymph # (Auto) 2.0 (1.2-4.9) X10*3/uL Cross # (Auto) 0.7 (0.1-1.2) X10*3/uL Eos # (Auto) 0.2 (0.0-0.4) X10*3/uL Baso # (Auto) 0.0 (0.0-0.2) X10*3/uL Abs Immat Gran (auto) 0.02 (0.00-0.03) X10*3/uL Absolute Neuts (auto) 3.8 (2.0-8.3) x10*3/uL Absolute Nucleated RBC 0.000 (0.0-0.012) X10*3/uL Nucleated RBC % (auto) 0.0 (0.0-0.2) /100WBC PT (9.9-13.0) SEC INR (0.9-1.1) APTT (24.1-38.0) SEC D-Dimer High Sensitivty NG/ML Sodium 138 (135-145) mmol/L Potassium 3.9 (3.3-5.1) mmol/L Chloride 102 (96-108) mmol/L Carbon Dioxide 24 (22-29) mmol/L Anion Gap 16 (12-20) BUN 11 (9-16) mg/dL Creatinine 0.90 (0.5-1.4) mg/dL Estim Creat Clear Calc 80.5 Estimated GFR > 60 POC Glucose 392 H* (60-115) mg/dL Random Glucose 438 H* (60-115) mg/dL Calcium 8.5 (8.4-10.2) mg/dL Magnesium 1.8 (1.6-2.6) mg/dL Total Bilirubin 0.5 (0.0-1.0) mg/dL AST 33 D (5-37) U/L ALT 43 H (0-40) U/L Alkaline Phosphatase 93 D (39-117) U/L Troponin I High Sens (<3.5-35.0) ng/L B-Natriuretic Peptide (<100) pg/mL Total Protein 6.4 L (6.5-8.0) g/dL Albumin 3.9 (3.5-5.0) g/dL COVID-19 (AILIN) (Negative) COVID-19 Clin Com 10/03/21 10/03/21 10/03/21 Range/Units 00:40 00:40 00:40 WBC (4.8-10.8) X10*3/uL RBC (4.60-5.80) X10*6/uL Hgb (14.0-18.0) g/dl Hct (42.0-52.0) % MCV (80.0-98.0) fL MCH (27.0-33.0) pg MCHC (31.0-36.0) g/dl RDW (11.0-16.0) % Plt Count (160-400) X10*3/uL MPV (9.4-12.4) fL Immature Gran % (Auto) (0.0-0.4) % Neut % (Auto) (45-73) % Lymph % (Auto) (20-40) % Cross % (Auto) (2-11) % Eos % (Auto) (0-4) % Baso % (Auto) (0-2) % Lymph # (Auto) (1.2-4.9) X10*3/uL Cross # (Auto) (0.1-1.2) X10*3/uL Eos # (Auto) (0.0-0.4) X10*3/uL Baso # (Auto) (0.0-0.2) X10*3/uL Abs Immat Gran (auto) (0.00-0.03) X10*3/uL Absolute Neuts (auto) (2.0-8.3) x10*3/uL Absolute Nucleated RBC (0.0-0.012) X10*3/uL Nucleated RBC % (auto) (0.0-0.2) /100WBC PT 11.6 (9.9-13.0) SEC INR 1.0 (0.9-1.1) APTT 29.7 (24.1-38.0) SEC D-Dimer High Sensitivty 184 NG/ML Sodium (135-145) mmol/L Potassium (3.3-5.1) mmol/L Chloride (96-108) mmol/L Carbon Dioxide (22-29) mmol/L Anion Gap (12-20) BUN (9-16) mg/dL Creatinine (0.5-1.4) mg/dL Estim Creat Clear Calc Estimated GFR POC Glucose (60-115) mg/dL Random Glucose (60-115) mg/dL Calcium (8.4-10.2) mg/dL Magnesium (1.6-2.6) mg/dL Total Bilirubin (0.0-1.0) mg/dL AST (5-37) U/L ALT (0-40) U/L Alkaline Phosphatase (39-117) U/L Troponin I High Sens 10.9 (<3.5-35.0) ng/L B-Natriuretic Peptide 77 (<100) pg/mL Total Protein (6.5-8.0) g/dL Albumin (3.5-5.0) g/dL COVID-19 (AILIN) Negative (Negative) COVID-19 Clin Com See Note 10/03/21 Range/Units 03:42 WBC (4.8-10.8) X10*3/uL RBC (4.60-5.80) X10*6/uL Hgb (14.0-18.0) g/dl Hct (42.0-52.0) % MCV (80.0-98.0) fL MCH (27.0-33.0) pg MCHC (31.0-36.0) g/dl RDW (11.0-16.0) % Plt Count (160-400) X10*3/uL MPV (9.4-12.4) fL Immature Gran % (Auto) (0.0-0.4) % Neut % (Auto) (45-73) % Lymph % (Auto) (20-40) % Cross % (Auto) (2-11) % Eos % (Auto) (0-4) % Baso % (Auto) (0-2) % Lymph # (Auto) (1.2-4.9) X10*3/uL Cross # (Auto) (0.1-1.2) X10*3/uL Eos # (Auto) (0.0-0.4) X10*3/uL Baso # (Auto) (0.0-0.2) X10*3/uL Abs Immat Gran (auto) (0.00-0.03) X10*3/uL Absolute Neuts (auto) (2.0-8.3) x10*3/uL Absolute Nucleated RBC (0.0-0.012) X10*3/uL Nucleated RBC % (auto) (0.0-0.2) /100WBC PT (9.9-13.0) SEC INR (0.9-1.1) APTT (24.1-38.0) SEC D-Dimer High Sensitivty NG/ML Sodium (135-145) mmol/L Potassium (3.3-5.1) mmol/L Chloride (96-108) mmol/L Carbon Dioxide (22-29) mmol/L Anion Gap (12-20) BUN (9-16) mg/dL Creatinine (0.5-1.4) mg/dL Estim Creat Clear Calc Estimated GFR POC Glucose 200 H (60-115) mg/dL Random Glucose (60-115) mg/dL Calcium (8.4-10.2) mg/dL Magnesium (1.6-2.6) mg/dL Total Bilirubin (0.0-1.0) mg/dL AST (5-37) U/L ALT (0-40) U/L Alkaline Phosphatase (39-117) U/L Troponin I High Sens (<3.5-35.0) ng/L B-Natriuretic Peptide (<100) pg/mL Total Protein (6.5-8.0) g/dL Albumin (3.5-5.0) g/dL COVID-19 (AILIN) (Negative) COVID-19 Clin Com Discharge Plan Discharge Clinical Impression: Weakness Patient Disposition: Home, Self-Care Instructions: Weakness (ED) Additional Instructions: Drink plenty of fluid Use CPAP in the night and inhaler every 4-6 hours as needed for shortness of breath Follow with PCP Prescriptions: No Action atorvastatin 80 mg tablet 80 mg PO BEDTIME 0RF lamotrigine 200 mg tablet 200 mg PO BID 0RF clopidogrel 75 mg tablet 75 mg PO DAILY 0RF famotidine 20 mg tablet 20 mg PO BID 0RF metoprolol tartrate 50 mg tablet 75 mg PO BID 0RF albuterol sulfate 90 mcg/actuation HFA aerosol inhaler 2 puff inhalation Q4H PRN (Reason: Shortness Of Breath) 0RF losartan 100 mg tablet 100 mg PO DAILY 0RF metformin 500 mg tablet extended release 24 hr 500 mg PO BID@0800,1700 0RF divalproex 250 mg tablet extended release 24 hr 250 mg PO DAILY 0RF duloxetine 60 mg capsule,delayed release(DR/EC) 60 mg PO DAILY 0RF (DME) lancets [OneTouch Delica Plus Lancet] 30 gauge misc MISCELLANEOUS DAILY 0RF tamsulosin 0.4 mg Capsule 0.8 mg PO BEDTIME Qty: 30 0RF clonazepam 0.5 mg Tablet 0.5 mg PO BEDTIME 0RF sulfamethoxazole-trimethoprim [Bactrim DS] 800-160 mg Tablet 1 tab PO DAILY 0RF Rx Instructions: FOR UTI . START DATE 07/23/19 FOR 3 DAYS . dextrose [Glucose Gel] 40 % Gel 10 g PO Q15M PRN (Reason: BLOOD SUGAR <60) 0RF Glucagon (HCl) Emergency Kit 1 mg Recon Soln 1 mg SUBCUT Q20M PRN (Reason: BLOOD SUGAR < 60) 0RF magnesium hydroxide [Milk of Magnesia] 400 mg/5 mL Suspension 30 ml PO DAILY PRN (Reason: Constipation) 0RF ondansetron HCl [Zofran] 4 mg Tablet 4 mg PO Q8H PRN (Reason: Nausea) 0RF risperidone [Risperdal] 1 mg Tablet 1 mg PO DAILY 0RF Rx Instructions: RELATED TO HALLUCINATIONS. START DATE 07/23/20 STOP DATE OF 07/27/20 amoxicillin-pot clavulanate [Augmentin] 875-125 mg tablet 1 tab PO BID Qty: 28 0RF acetaminophen 325 mg Tablet 650 mg PO Q6H PRN (Reason: FEVER/PAIN) 0RF amlodipine 5 mg Tablet 5 mg PO DAILY 0RF bisacodyl [Dulcolax (bisacodyl)] 10 mg Suppository 10 mg MN Q3D PRN (Reason: Constipation) 0RF cholecalciferol (vitamin D3) [Vitamin D3] 25 mcg (1,000 unit) Tablet 50 mcg PO DAILY 0RF
--- NOTE | 2021-10-03 00:07 | ECG_ITS ---
Test Reason : weakness Blood Pressure : / mmHG Vent. Rate : 075 BPM Atrial Rate : 075 BPM P-R Int : 194 ms QRS Dur : 088 ms QT Int : 444 ms P-R-T Axes : 071 -24 052 degrees QTc Int : 495 ms Normal sinus rhythm Inferior infarct , age undetermined Nonspecific ST and T wave abnormality Abnormal ECG When compared with ECG of 23-JUL-2020 19:36, No significant changes seen Referred By: Axel Buico Electronically Signed By:ROHAN SOTO
[2021-10-03 00:10] VITALS: BP 172/84; PULSE 78; RESP 16; TEMP 36.8; O2SAT 99
[2021-10-03 00:20] LABS: Glucose, Whole Blood 392 mg/dL (60-115)
[2021-10-03 00:46] LABS: MANUAL DIFF FLAG NO
[2021-10-03 00:53] LABS: Basophils Percent Auto 0.3 % (0-2); Eosinophils Absolute Auto 0.2 X10*3/uL (0.0-0.4); Eosinophils Percent Auto 3.6 % (0-4); Hematocrit 38.6 % (42.0-52.0); Hemoglobin 12.4 g/dl (14.0-18.0); Imm Gran Abs Auto 0.02 X10*3/uL (0.00-0.03); Imm Gran Pct Auto 0.3 % (0.0-0.4); Lymphocytes Percent Auto 29.2 % (20-40); Mean Corpuscular HGB Conc 32.1 g/dl (31.0-36.0); Mean Corpuscular Hemoglobin 27.3 pg (27.0-33.0); Monocytes Absolute Auto 0.7 X10*3/uL (0.1-1.2); Monocytes Percent Auto 9.7 % (2-11); Neutrophils Absolute Auto 3.8 x10*3/uL (2.0-8.3); Neutrophils Percent Auto 56.9 % (45-73); Platelet Count 152 X10*3/uL (160-400); Red Blood Count 4.54 X10*6/uL (4.60-5.80); Red Cell Distribution Width 13.2 % (11.0-16.0); White Blood Count 6.7 X10*3/uL (4.8-10.8)
[2021-10-03 00:55] LABS: Prothrombin Time 11.6 SEC (9.9-13.0)
[2021-10-03 00:57] LABS: D Dimer High Sensitivity 184 NG/ML
[2021-10-03 00:58] LABS: Partial Thromboplastin Time 29.7 SEC (24.1-38.0)
[2021-10-03 01:01] LABS: COVID-19 Test Negative (Negative)
[2021-10-03 01:07] LABS: Alanine Aminotransferase 43 U/L (0-40); Albumin Level 3.9 g/dL (3.5-5.0); Alkaline Phosphatase 93 U/L (39-117); Anion Gap 16 (12-20); Aspartate Amino Transferase 33 U/L (5-37); Bilirubin Total 0.5 mg/dL (0.0-1.0); Blood Urea Nitrogen 11 mg/dL (9-16); Calcium 8.5 mg/dL (8.4-10.2); Carbon Dioxide 24 mmol/L (22-29); Chloride 102 mmol/L (96-108); Creatinine Clr Calc Pharmacy 80.5; Estimated Glomerular Filt Rate > 60; Glucose Random 438 mg/dL (60-115); Magnesium 1.8 mg/dL (1.6-2.6); Potassium 3.9 mmol/L (3.3-5.1); Sodium 138 mmol/L (135-145); Total Protein 6.4 g/dL (6.5-8.0)
[2021-10-03 01:08] LABS: B Type Natriuretic Peptide 77 pg/mL (<100); Troponin-I High Sensitivity 10.9 ng/L (<3.5-35.0)
[2021-10-03] MEDS: Insulin Lispro 100 UNIT/ML 3 ML VIAL 14 UNIT SUBCUT (01:23)
[2021-10-03] MEDS: 0.9 % Sodium Chloride 1,000 ML 999 ML IV (01:24)
[2021-10-03] MEDS: iohexoL 350 MG/ML 100 ML INFUS..BTL 75 ML IV (02:27)
[2021-10-03] MEDS: Albuterol/Iprat 2.5/0.5MG 3 ML AMPUL.NEB INHALE (03:45)
[2021-10-03 03:52] LABS: Glucose, Whole Blood 200 mg/dL (60-115)
[2021-10-03 03:53] VITALS: PULSE 82; RESP 14; O2SAT 96
--- NOTE | 2021-10-03 03:57 | PC.NURSE ---
I assumed nursing care of Dragan upon his arrival to bed 12 via EMS from home. he presents for evaluation of LLE pain/weakness/difficulty ambulating and dyspnea on exertion. He has remained alert, oriented x 3, speech clear and appropriate, makes eye contact with RN and has been calm and cooperative. Respirations appear spontaneous and non-labored, room air sats 94% or better, RR WNL, he speaks in full sentences, no cyanosis. He denies any chest pain. He denies change in his bowel or bladder patterns. No nausea, no vomiting. His ER visit has been mostly uneventful up until we were discussing discharge when the pt stated he needs to use the restroom. Myself and the pt's daughter assisted the pt to ambulate to the bathroom from bed 12 to the bathroom outside the ED staff lounge. His gait was extremely unsteady, his feet kept crossing in front of each other and he kept tripping on his own feet. It required 2 max assist to ambulate the pt. His gait was not steady nor was it safe. Maria Esther ROPER notified and witnessed the pts gait while we assisted him. The decision was made for the pt to remain in the ED and have a head CT. The pts daughter, who is at the bedside, states his ability to ambulate has significant worsened in the past 2-3 days. He was able to have a bowel movement in the bathroom without difficulty - soft, brown stool. Awaiting head CT, will continue to monitor.
== END 2021-10-03 06:13 | disposition home or self-care (01) ==
PROVIDERS: Emergency Provider Internal Medicine
DX: R53.1 Weakness (principal); Z20.822 Contact with and (suspected) exposure to COVID-19; R06.02 Shortness of breath; E11.9 Type 2 diabetes mellitus without complications; E78.5 Hyperlipidemia, unspecified; I10 Essential (primary) hypertension; Z86.73 Personal history of transient ischemic attack (TIA), and cerebral infarction without residual deficits; Z79.02 Long term (current) use of antithrombotics/antiplatelets
CPT/HCPCS: 36415; 70450; 71275; 80053; 82947; 83735; 83880; 84484; 85025; 85379; 85610; 85730; 87635; 93005; 94640; 96360; 99284; Q9967

== ENCOUNTER 2022-01-25 11:07 | Observation (INO) | payer MEDICARE, MEDICAID, SELFPAY ==
--- NOTE | ~2022-01-25 | CT_ITS ---
EXAMINATION: CT HEAD WITHOUT CONTRAST CLINICAL INFORMATION: Fall. Acute mental status change. History of CVA 7 weeks ago COMPARISON: Previous head CT September 2021 TECHNIQUE: Contiguous axial imaging was performed from the skull base to vertex without intravenous administration of contrast. This CT examination was performed using dose optimization techniques as appropriate, variously including the following: *Automated exposure control *Adjustment of mA and/or kV according to patient size (this includes techniques or standardized protocols for targeted exams where dose is matched to indication/reason for exam; i.e. extremities or head) *Use of iterative reconstruction technique DLP: 860 mGy-cm FINDINGS: There is no evidence of an extra-axial collection. There is no evidence of intra-axial or extra-axial hemorrhage. The ventricles and extra-axial CSF spaces are slightly prominent suggestive of mild generalized atrophy. [place]-white matter differentiation is normal. No mass, mass effect or infarct is seen. Review of bone windows is normal. No skull fracture is seen. The soft tissue swelling overlying the left frontal bone/frontal sinus. CT/CT head/brain wo con IMPRESSION: No acute intracranial findings.
--- NOTE | ~2022-01-25 | XR_ITS ---
EXAMINATION: XR CHEST CLINICAL INFORMATION: Cough COMPARISON: None TECHNIQUE: Frontal view of the chest was obtained. FINDINGS: The lungs are hypoexpanded but clear. The heart size and pulmonary vascularity is normal. No gross bony abnormality seen.. XR/XR chest 1V IMPRESSION: Unremarkable chest examination.
--- NOTE | 2022-01-25 11:27 | ED_ITS ---
HPI - General Adult General Chief complaint: Altered Mental Status Stated complaint: AMS,? UTI PER EMS Time Seen by Provider: 01/25/22 11:20 Source: patient and EMS Mode of arrival: EMS Limitations: altered mental status History of Present Illness HPI narrative: Patient comes to the emergency room via ambulance from home. EMS reports that the was concerned that the patient seems more confused than usual. Patient has a strong history of urinary tract infections. To her knowledge, patient has not had any fever or chills. Patient is awake and alert, states that he is here because he has been congested. When asked about a UTI, states that he frequently has UTIs, denies dysuria, flank pain or hematuria. Related Data Home Medications Medication Instructions Recorded Confirmed albuterol sulfate 90 mcg/actuation 2 puff inhalation Q4H PRN 06/19/20 07/23/20 aerosol inhaler Shortness Of Breath atorvastatin 80 mg tablet 80 mg PO BEDTIME 06/19/20 07/23/20 clopidogrel 75 mg tablet 75 mg PO DAILY 06/19/20 07/23/20 divalproex 250 mg tablet,extended 250 mg PO DAILY 06/19/20 07/23/20 release 24 hr duloxetine 60 mg capsule,delayed 60 mg PO DAILY 06/19/20 07/23/20 release famotidine 20 mg tablet 20 mg PO BID 06/19/20 07/23/20 lamotrigine 200 mg tablet 200 mg PO BID 06/19/20 07/23/20 lancets 30 gauge (OneTouch Delica 06/19/20 06/19/20 Plus Lancet) losartan 100 mg tablet 100 mg PO DAILY 06/19/20 07/23/20 metformin 500 mg tablet,extended 500 mg PO BID@0800,1700 06/19/20 07/23/20 release 24 hr metoprolol tartrate 50 mg tablet 75 mg PO BID 06/19/20 07/23/20 acetaminophen 325 mg tablet 650 mg PO Q6H PRN FEVER/PAIN 07/08/20 07/23/20 amlodipine 5 mg tablet 5 mg PO DAILY 07/08/20 07/23/20 bisacodyl 10 mg rectal suppository 10 mg SD Q3D PRN Constipation 07/08/20 07/23/20 (Dulcolax (bisacodyl)) cholecalciferol (vitamin D3) 25 50 mcg PO DAILY 07/08/20 07/23/20 mcg (1,000 unit) tablet (Vitamin D3) clonazepam 0.5 mg tablet 0.5 mg PO BEDTIME 07/23/20 07/23/20 dextrose 40 % oral gel (Glucose 10 g PO Q15M PRN BLOOD SUGAR <60 07/23/20 07/23/20 Gel) glucagon HCl 1 mg solution for 1 mg subcut Q20M PRN BLOOD SUGAR < 07/23/20 07/23/20 injection (Glucagon (HCl) 60 Emergency Kit) magnesium hydroxide 400 mg/5 mL 30 ml PO DAILY PRN Constipation 07/23/2007/23 oral suspension (Milk of Magnesia) ondansetron HCl 4 mg tablet 4 mg PO Q8H PRN Nausea 07/23/20 07/23/20 (Zofran) risperidone 1 mg tablet (Risperdal) 1 mg PO DAILY 07/23/20 07/23/20 sulfamethoxazole 800 1 tab PO DAILY 07/23/20 07/23/20 mg-trimethoprim 160 mg tablet (Bactrim DS) Previous Rx's Medication Instructions Recorded tamsulosin 0.4 mg capsule 0.8 mg PO BEDTIME #30 caps 07/03/20 amoxicillin 875 mg-potassium 1 tab PO BID #28 tabs 07/23/20 clavulanate 125 mg tablet (Augmentin) tamsulosin 0.4 mg capsule 0.4 mg PO DAILY #7 caps 01/25/22 Allergies Allergy/AdvReac Type Severity Reaction Status Date / Time lisinopril [LISINOPRIL] Allergy Unknown MUSCLE Verified 06/01/20 11:58 ACHES pregabalin [From LYRICA] Allergy Unknown UNKNOWN Verified 06/01/20 11:58 Review of Systems Review of Systems: Constitutional : Denies fever or chills ENT/Mouth : No Hearing loss, No Ear Pain, complaining of Nasal Congestion, No Sinus Pain, No Hoarseness, No sore throat, No Rhinorrhea, No Swallowing Difficulty Eyes: No Eye Pain, No Swelling, No Redness, No Foreign Body, No Discharge, No Vision Changes Cardiovascular : No Chest Pain, No SOB, No Dyspnea on Exertion, No Orthopnea, No Edema, No Palpitations Respiratory : No Cough, No Sputum, No Wheezing, No Smoke Exposure, No Dyspnea Gastrointestinal : No Nausea, No Vomiting, No Diarrhea, No Constipation, No abdominal Pain, No Hematochezia, No Melena Genitourinary : complaining of recurrent UTIs, No Dysuria, No Urinary Frequency, No Hematuria, No Urinary Incontinence, No Urgency, No Flank Pain, No Urinary Flow Changes, No Hesitancy Musculoskeletal : No joint pain, No Myalgias, No Joint Swelling Skin : No Skin Lesions, No rash Neuro : No Weakness, No Numbness, No Paresthesias, No Loss of Consciousness, No Dizziness, No Headache Psych : No Anxiety/Panic, No Depression, No SI/HI/AH/VH, No Social Issues, Heme/Lymph: No Bruising, No Bleeding,No Lymphadenopathy Endocrine : No Polyuria, No Polydipsia, No Temperature Intolerance [facility] Past Medical History Medical History Anxiety BPH (benign prostatic hyperplasia) Coronary artery disease COVID-19 Diabetes Fall High blood cholesterol Hyperlipidemia Hypertension Intracranial atherosclerosis Perforation of sigmoid colon due to diverticulitis Stroke 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 hyperplasia Surgical History H/O neck surgery History of heart artery stent Family History Family History Other Coronary artery disease Diabetes Social History Social History Household Members: Unknown / Unable to assess Housing: Unknown / Unable to assess Do you presently have visiting nurse or other home services: No (unknown) Unable to assess alcohol history related to: Unknown Alcohol intake: never Patient Tobacco Use Status: Never used Tobacco Use of substances other than those prescribed or required for medical reasons: No Advance Directives: Yes Advance Directives on File: Yes Advance Directives Date on File: 07/15/20 service: No Current occupational status: unemployed Physical Exam ED Vital Signs: Vital Signs - 24 hr 01/25/22 11:51 01/25/22 15:15 Temperature 98.2 F 97.8 F Pulse Rate 78 84 Respiratory Rate 16 17 Blood Pressure 186/109 H 206/113 H Pulse Oximetry 97 95 Oxygen Delivery Method Room Air Room Air BMI result Body Mass Index 33.4 Const Other: Appearance: Alert. Oriented X3. No acute distress. patient is able to converse, seems a bit forgetful Eyes: Pupils equal, round and reactive to light. ENT: Pharynx normal. Neck: Normal inspection. Neck supple. No lymph nodes noted. No crepitus CVS: Normal heart rate and rhythm. Pulses normal. Normal S1 and S2 Respiratory: No respiratory distress. Breath sounds normal. No Wheezing. No rales Abdomen: Soft and nontender. No rigidity. No distention. Skin: Skin warm and dry. Normal skin color. Normal skin turgor. Extremities: No lower extremity edema. No Lacerations. No Rash Neuro: Oriented X 3. No motor deficit. No sensory deficit. Moving all extremities. No slurred speech. CN 2 through 12 grossly intact Psych: calm, cooperative, normal affect Course Course Course Narrative: vitals, labs and imaging pending. 15:00, patient's labs are hemolyzed, redraw necessary. Urinalysis is negative. Patient however does have urinary retention, Byrd catheter in place. Chemistry pending. His lactic acid is 2.7 which is chronic. 15:55. Patient's is at bedside. We were yes informed that earlier today patient had a fall. According to the patient he has been feeling off balance for approximately 1 week. Patient had a CVA 7 weeks ago, he still has residual weakness in his lower extremities. Patient states that since his physical therapy concluded approximately 1 week ago, he has gradually been declining. Patient states that the physical therapy was very helpful to him. Head CT is pending. If negative, we will get a physical therapy evaluation. Case management has been notified. patient's blood pressure is elevated, patient has not taken his blood pressure medications today, patient received today in the ED 10 mg of amlodipine and 50 mg of p.o. metoprolol tartrate. Our case packer and sealer informed me, that this time is particularly hard for the patient and his . One year ago they lost their daughter on this date. Head CT negative. Case management consult has been started. Physical therapy evaluation will be done likely in the morning. Patient will spend the night in the ED. physician observation started 17:30 Medical Decision Making Lab Data Result diagrams: 01/25/22 12:47 01/25/22 14:56 Labs: Lab Results 07/12/22 07/12/22 07/12/22 Range/Units 12:47 12:47 12:47 WBC 11.4 H (4.8-10.8) X10*3/uL RBC 4.91 (4.60-5.80) X10*6/uL Hgb 13.6 L (14.0-18.0) g/dl Hct 41.9 L (42.0-52.0) % MCV 85.3 (80.0-98.0) fL MCH 27.7 (27.0-33.0) pg MCHC 32.5 (31.0-36.0) g/dl RDW 13.0 (11.0-16.0) % Plt Count 205 D (160-400) X10*3/uL MPV 9.9 (9.4-12.4) fL Immature Gran % (Auto) 0.3 (0.0-0.4) % Neut % (Auto) 68.1 (45-73) % Lymph % (Auto) 19.0 L (20-40) % [place] % (Auto) 8.6 (2-11) % Eos % (Auto) 3.7 (0-4) % Baso % (Auto) 0.3 (0-2) % Lymph # (Auto) 2.2 (1.2-4.9) X10*3/uL [place] # (Auto) 1.0 (0.1-1.2) X10*3/uL Eos # (Auto) 0.4 (0.0-0.4) X10*3/uL Baso # (Auto) 0.0 (0.0-0.2) X10*3/uL Abs Immat Gran (auto) 0.04 H (0.00-0.03) X10*3/uL Absolute Neuts (auto) 7.8 (2.0-8.3) x10*3/uL Absolute Nucleated RBC 0.000 (0.0-0.012) X10*3/uL Nucleated RBC % (auto) 0.0 (0.0-0.2) /100WBC Sodium (135-145) mmol/L Potassium (3.3-5.1) mmol/L Chloride (96-108) mmol/L Carbon Dioxide (22-29) mmol/L Anion Gap (12-20) BUN (9-16) mg/dL Creatinine (0.5-1.4) mg/dL Estim Creat Clear Calc Estimated GFR Random Glucose (60-115) mg/dL Lactic Acid 2.7 H* (0.5-2.0) mmol/L Lactic Acid F/U @ 2Hr (0.5-2.0) mmol/L Calcium (8.4-10.2) mg/dL Total Bilirubin (0.0-1.0) mg/dL Direct Bilirubin (0.0-0.5) mg/dL AST (5-37) U/L ALT (0-40) U/L Alkaline Phosphatase (39-117) U/L Troponin I High Sens (<3.5-35.0) ng/L Total Protein (6.5-8.0) g/dL Albumin (3.5-5.0) g/dL Urine Color Urine Appearance Urine pH (5.0-8.0) Ur Specific [place] (1.005-1.025) Urine Protein (NEG-TRACE) MG/DL Urine Glucose (UA) (NEG) MG/DL Urine Ketones (NEG) MG/DL Urine Blood (NEG) Urine Nitrite (NEG) Ur Leukocyte Esterase (NEG) Urine Opiates Screen (Not Detect) Urine Fentanyl Screen (Not Detect) Ur Barbiturates Screen (Not Detect) Ur Phencyclidine Scrn (Not Detect) Ur Amphetamines Screen (Not Detect) U Benzodiazepines Scrn (Not Detect) Urine Cocaine Screen (Not Detect) U Marijuana (THC) Screen (Not Detect) COVID-19 (AILIN) Negative (Negative) COVID-19 Clin Com See Note 01/25/22 01/25/22 01/25/22 Range/Units 12:47 14:05 14:05 WBC (4.8-10.8) X10*3/uL RBC (4.60-5.80) X10*6/uL Hgb (14.0-18.0) g/dl Hct (42.0-52.0) % MCV (80.0-98.0) fL MCH (27.0-33.0) pg MCHC (31.0-36.0) g/dl RDW (11.0-16.0) % Plt Count (160-400) X10*3/uL MPV (9.4-12.4) fL Immature Gran % (Auto) (0.0-0.4) % Neut % (Auto) (45-73) % Lymph % (Auto) (20-40) % [place] % (Auto) (2-11) % Eos % (Auto) (0-4) % Baso % (Auto) (0-2) % Lymph # (Auto) (1.2-4.9) X10*3/uL [place] # (Auto) (0.1-1.2) X10*3/uL Eos # (Auto) (0.0-0.4) X10*3/uL Baso # (Auto) (0.0-0.2) X10*3/uL Abs Immat Gran (auto) (0.00-0.03) X10*3/uL Absolute Neuts (auto) (2.0-8.3) x10*3/uL Absolute Nucleated RBC (0.0-0.012) X10*3/uL Nucleated RBC % (auto) (0.0-0.2) /100WBC Sodium (135-145) mmol/L Potassium (3.3-5.1) mmol/L Chloride (96-108) mmol/L Carbon Dioxide (22-29) mmol/L Anion Gap (12-20) BUN (9-16) mg/dL Creatinine (0.5-1.4) mg/dL Estim Creat Clear Calc Estimated GFR Random Glucose (60-115) mg/dL Lactic Acid (0.5-2.0) mmol/L Lactic Acid F/U @ 2Hr (0.5-2.0) mmol/L Calcium (8.4-10.2) mg/dL Total Bilirubin (0.0-1.0) mg/dL Direct Bilirubin (0.0-0.5) mg/dL AST (5-37) U/L ALT (0-40) U/L Alkaline Phosphatase (39-117) U/L Troponin I High Sens 5.6 (<3.5-35.0) ng/L Total Protein (6.5-8.0) g/dL Albumin (3.5-5.0) g/dL Urine Color YELLOW Urine Appearance CLEAR Urine pH 6.0 (5.0-8.0) Ur Specific [place] 1.020 (1.005-1.025) Urine Protein NEG (NEG-TRACE) MG/DL Urine Glucose (UA) NEG (NEG) MG/DL Urine Ketones NEG (NEG) MG/DL Urine Blood NEG (NEG) Urine Nitrite NEG (NEG) Ur Leukocyte Esterase NEG (NEG) Urine Opiates Screen Not Detected (Not Detect) Urine Fentanyl Screen Not Detected (Not Detect) Ur Barbiturates Screen Not Detected (Not Detect) Ur Phencyclidine Scrn Not Detected (Not Detect) Ur Amphetamines Screen Not Detected (Not Detect) U Benzodiazepines Scrn Not Detected (Not Detect) Urine Cocaine Screen Not Detected (Not Detect) U Marijuana (THC) Screen Not Detected (Not Detect) COVID-19 (AILIN) (Negative) COVID-19 Clin Com 01/25/22 01/25/22 Range/Units 14:56 16:14 WBC (4.8-10.8) X10*3/uL RBC (4.60-5.80) X10*6/uL Hgb (14.0-18.0) g/dl Hct (42.0-52.0) % MCV (80.0-98.0) fL MCH (27.0-33.0) pg MCHC (31.0-36.0) g/dl RDW (11.0-16.0) % Plt Count (160-400) X10*3/uL MPV (9.4-12.4) fL Immature Gran % (Auto) (0.0-0.4) % Neut % (Auto) (45-73) % Lymph % (Auto) (20-40) % [place] % (Auto) (2-11) % Eos % (Auto) (0-4) % Baso % (Auto) (0-2) % Lymph # (Auto) (1.2-4.9) X10*3/uL [place] # (Auto) (0.1-1.2) X10*3/uL Eos # (Auto) (0.0-0.4) X10*3/uL Baso # (Auto) (0.0-0.2) X10*3/uL Abs Immat Gran (auto) (0.00-0.03) X10*3/uL Absolute Neuts (auto) (2.0-8.3) x10*3/uL Absolute Nucleated RBC (0.0-0.012) X10*3/uL Nucleated RBC % (auto) (0.0-0.2) /100WBC Sodium 142 (135-145) mmol/L Potassium 3.9 (3.3-5.1) mmol/L Chloride 103 (96-108) mmol/L Carbon Dioxide 29 (22-29) mmol/L Anion Gap 14 (12-20) BUN 8 L (9-16) mg/dL Creatinine 0.78 (0.5-1.4) mg/dL Estim Creat Clear Calc 99.9 Estimated GFR > 60 Random Glucose 125 H D (60-115) mg/dL Lactic Acid (0.5-2.0) mmol/L Lactic Acid F/U @ 2Hr 2.5 H* (0.5-2.0) mmol/L Calcium 8.6 (8.4-10.2) mg/dL Total Bilirubin 0.6 (0.0-1.0) mg/dL Direct Bilirubin 0.3 (0.0-0.5) mg/dL AST 25 (5-37) U/L ALT 42 H (0-40) U/L Alkaline Phosphatase 95 (39-117) U/L Troponin I High Sens (<3.5-35.0) ng/L Total Protein 7.0 (6.5-8.0) g/dL Albumin 4.4 (3.5-5.0) g/dL Urine Color Urine Appearance Urine pH (5.0-8.0) Ur Specific [place] (1.005-1.025) Urine Protein (NEG-TRACE) MG/DL Urine Glucose (UA) (NEG) MG/DL Urine Ketones (NEG) MG/DL Urine Blood (NEG) Urine Nitrite (NEG) Ur Leukocyte Esterase (NEG) Urine Opiates Screen (Not Detect) Urine Fentanyl Screen (Not Detect) Ur Barbiturates Screen (Not Detect) Ur Phencyclidine Scrn (Not Detect) Ur Amphetamines Screen (Not Detect) U Benzodiazepines Scrn (Not Detect) Urine Cocaine Screen (Not Detect) U Marijuana (THC) Screen (Not Detect) COVID-19 (AILIN) (Negative) COVID-19 Clin Com Imaging Data head CT: Radiologist's impression: FINDINGS: There is no evidence of an extra-axial collection. There is no evidence of intra-axial or extra-axial hemorrhage. The ventricles and extra-axial CSF spaces are slightly prominent suggestive of mild generalized atrophy. [place]-white matter differentiation is normal. No mass, mass effect or infarct is seen. Review of bone windows is normal. No skull fracture is seen. The soft tissue swelling overlying the left frontal bone/frontal sinus. ? CT/CT head/brain wo con IMPRESSION: No acute intracranial findings. Discharge Plan Discharge Clinical Impression: Acute urinary retention Instructions: Urinary Retention in Men (ED) Additional Instructions: Please follow-up with your primary care physician tomorrow. If you have any worsening or new symptoms, please return to the emergency room or call 911 Prescriptions: New tamsulosin 0.4 mg capsule 0.4 mg PO DAILY Qty: 7 0RF No Action atorvastatin 80 mg tablet 80 mg PO BEDTIME lamotrigine 200 mg tablet 200 mg PO BID clopidogrel 75 mg tablet 75 mg PO DAILY famotidine 20 mg tablet 20 mg PO BID metoprolol tartrate 50 mg tablet 75 mg PO BID albuterol sulfate 90 mcg/actuation HFA aerosol inhaler 2 puff inhalation Q4H PRN (Reason: Shortness Of Breath) losartan 100 mg tablet 100 mg PO DAILY metformin 500 mg tablet extended release 24 hr 500 mg PO BID@0800,1700 divalproex 250 mg tablet extended release 24 hr 250 mg PO DAILY duloxetine 60 mg capsule,delayed release(DR/EC) 60 mg PO DAILY (DME) lancets [OneTouch Delica Plus Lancet] 30 gauge misc MISCELLANEOUS DAILY tamsulosin 0.4 mg Capsule 0.8 mg PO BEDTIME Qty: 30 0RF clonazepam 0.5 mg Tablet 0.5 mg PO BEDTIME sulfamethoxazole-trimethoprim [Bactrim DS] 800-160 mg Tablet 1 tab PO DAILY Rx Instructions: FOR UTI . START DATE 07/23/19 FOR 3 DAYS . dextrose [Glucose Gel] 40 % Gel 10 g PO Q15M PRN (Reason: BLOOD SUGAR <60) Glucagon (HCl) Emergency Kit 1 mg Recon Soln 1 mg SUBCUT Q20M PRN (Reason: BLOOD SUGAR < 60) magnesium hydroxide [Milk of Magnesia] 400 mg/5 mL Suspension 30 ml PO DAILY PRN (Reason: Constipation) ondansetron HCl [Zofran] 4 mg Tablet 4 mg PO Q8H PRN (Reason: Nausea) risperidone [Risperdal] 1 mg Tablet 1 mg PO DAILY Rx Instructions: RELATED TO HALLUCINATIONS. START DATE 07/23/20 STOP DATE OF 07/27/20 amoxicillin-pot clavulanate [Augmentin] 875-125 mg tablet 1 tab PO BID Qty: 28 0RF acetaminophen 325 mg Tablet 650 mg PO Q6H PRN (Reason: FEVER/PAIN) amlodipine 5 mg Tablet 5 mg PO DAILY bisacodyl [Dulcolax (bisacodyl)] 10 mg Suppository 10 mg SD Q3D PRN (Reason: Constipation) cholecalciferol (vitamin D3) [Vitamin D3] 25 mcg (1,000 unit) Tablet 50 mcg PO DAILY Referrals: Torey Lockhart MD [Physician] - 2 days
--- NOTE | 2022-01-25 11:28 | ECG_ITS ---
Test Reason : ams Blood Pressure : / mmHG Vent. Rate : 076 BPM Atrial Rate : 076 BPM P-R Int : 190 ms QRS Dur : 090 ms QT Int : 398 ms P-R-T Axes : 053 -23 036 degrees QTc Int : 447 ms Normal sinus rhythm Nonspecific ST and T wave abnormality When compared with ECG of 03-OCT-2021 00:15, No significant change was found Referred By: Yamel Padron Electronically Signed By:STEVE REILLY MD
[2022-01-25 11:41] VITALS: BP 178/96; PULSE 74; O2SAT 95; BMI 33.4
[2022-01-25 11:51] VITALS: BP 186/109; PULSE 78; RESP 16; TEMP 36.8; O2SAT 97
[2022-01-25 12:53] LABS: MANUAL DIFF FLAG NO
[2022-01-25 12:54] LABS: Basophils Percent Auto 0.3 % (0-2); Eosinophils Absolute Auto 0.4 X10*3/uL (0.0-0.4); Eosinophils Percent Auto 3.7 % (0-4); Hematocrit 41.9 % (42.0-52.0); Hemoglobin 13.6 g/dl (14.0-18.0); Imm Gran Abs Auto 0.04 X10*3/uL (0.00-0.03); Imm Gran Pct Auto 0.3 % (0.0-0.4); Lymphocytes Absolute Auto 2.2 X10*3/uL (1.2-4.9); Mean Corpuscular HGB Conc 32.5 g/dl (31.0-36.0); Mean Corpuscular Hemoglobin 27.7 pg (27.0-33.0); Mean Corpuscular Volume 85.3 fL (80.0-98.0); Mean Platelet Volume 9.9 fL (9.4-12.4); Monocytes Percent Auto 8.6 % (2-11); Neutrophils Absolute Auto 7.8 x10*3/uL (2.0-8.3); Neutrophils Percent Auto 68.1 % (45-73); Platelet Count 205 X10*3/uL (160-400); Red Blood Count 4.91 X10*6/uL (4.60-5.80); White Blood Count 11.4 X10*3/uL (4.8-10.8)
[2022-01-25 13:12] LABS: Lactic Acid 2.7 mmol/L (0.5-2.0)
[2022-01-25 13:15] LABS: COVID-19 Test Negative (Negative); IDNOW Serial# 9DB6401D; Troponin-I High Sensitivity 5.6 ng/L (<3.5-35.0)
[2022-01-25] MEDS: 0.9 % Sodium Chloride 1,000 ML 999 ML IVCONT (13:34)
[2022-01-25 14:14] LABS: Appearance Urine CLEAR; Color Urine YELLOW; Glucose Urine UA NEG (NEG); Leukocyte Esterase Urine NEG (NEG); Nitrite Urine NEG (NEG); Urine Blood NEG (NEG); Urine Ketones NEG (NEG); Urine Protein NEG (NEG-TRACE)
[2022-01-25 14:32] LABS: Amphetamine Screen Urine Not Detected (Not Detect); Barbiturates, Urine Not Detected (Not Detect); Benzodiazepines Screen Urine Not Detected (Not Detect); Cannabinoid Screen Urine Not Detected (Not Detect); Cocaine Screen Urine Not Detected (Not Detect); Fentanyl, urine Not Detected (Not Detect); Opiate Screen Urine Not Detected (Not Detect); Phencyclidine Screen Urine Not Detected (Not Detect)
[2022-01-25 14:51] LABS: Reflex Lactate? Lactic Acid Added
[2022-01-25 15:15] VITALS: BP 206/113; PULSE 84; RESP 17; TEMP 36.6; O2SAT 95
[2022-01-25 15:32] LABS: Alanine Aminotransferase 42 U/L (0-40); Albumin Level 4.4 g/dL (3.5-5.0); Alkaline Phosphatase 95 U/L (39-117); Anion Gap 14 (12-20); Aspartate Amino Transferase 25 U/L (5-37); Bilirubin Direct 0.3 mg/dL (0.0-0.5); Bilirubin Total 0.6 mg/dL (0.0-1.0); Blood Urea Nitrogen 8 mg/dL (9-16); Calcium 8.6 mg/dL (8.4-10.2); Carbon Dioxide 29 mmol/L (22-29); Chloride 103 mmol/L (96-108); Creatinine Clr Calc Pharmacy 99.9; Estimated Glomerular Filt Rate > 60; Glucose Random 125 mg/dL (60-115); Potassium 3.9 mmol/L (3.3-5.1); Sodium 142 mmol/L (135-145)
[2022-01-25 16:48] LABS: ~Lactic Acid-LAB USE ONLY 2.5 mmol/L (0.5-2.0)
[2022-01-25] MEDS: Metoprolol Tartrate 50 MG TABLET PO ×2 (17:49→23:04)
[2022-01-25] MEDS: amLODIPine Besylate 10 MG TABLET PO (17:49)
--- NOTE | 2022-01-25 18:13 | PHA.MEDREC ---
Pharmacy Consult ? Medication Reconciliation Pharmacy has completed the medication reconciliation.
[2022-01-25 18:17] LABS: Reflex Lactate? 2 Y
--- NOTE | 2022-01-25 19:16 | PC.NURSE ---
pt very confused throughout entire shift and somewhat agitated.
[2022-01-25 20:29] VITALS: BP 147/99; PULSE 75; RESP 15; TEMP 37.1; O2SAT 94
[2022-01-25 21:11] LABS: ~Lactic Acid-LAB USE ONLY 2.1 mmol/L (0.5-2.0)
--- NOTE | 2022-01-25 21:12 | PC.NURSE ---
Critical results report to DEE Ruiz of lactic acid 2.1
--- NOTE | 2022-01-25 21:54 | MHC.CM.ED ---
CM met with patient, and daughter. and daughter tell CM that pt has been off , saying that he is painting or that he has done things that he has not done in a long time. Family shared that they lost their daughter 2 years ago at 40 years old to a heart attack and covid. It was her birthday this week and the patient has been upset. Pt did share with CM that he lost his daughter and his parents in the same year. Pt had a stroke 7 weeks ago; was at [facility]. Went to [facility] at [place] and then had home PT with [facility]. PT was completed last week. tells CM that pt has been declining over the week and feels he needs more therapy. Pt lives with his in elderly housing. Has a walker, w/c and F/C. 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 Vax with Moderna x2. No booster. HCP/ Nelia Figueroa ([phone]) and #2 Heather Figueroa ([phone]). PT evaluation is pending. Pt willing to go to [facility] or to have home PT. Local referrals placed pending PT eval. If home PT recommended, [facility]family would like [facility] or [facility]. CM to follow for d/c needs.
[2022-01-25 22:35] VITALS: BP 166/85; PULSE 78; RESP 16; TEMP 36.7; O2SAT 94
[2022-01-25] MEDS: lamoTRIgine 100 MG TABLET 200 MG PO (23:03)
[2022-01-25] MEDS: metFORMIN HCl ER 500 MG TAB.ER.24H 1000 MG PO (23:03)
[2022-01-25] MEDS: Mirtazapine 15 MG TABLET PO (23:05)
[2022-01-25] MEDS: Tamsulosin HCL 0.4 MG CAPSULE 0.8 MG PO (23:05)
[2022-01-25] MEDS: Atorvastatin Calcium 80 MG TABLET PO (23:05)
[2022-01-25 23:21] LABS: Glucose, Whole Blood 103 mg/dL (60-115)
[2022-01-25 23:49] VITALS: BP 153/70; PULSE 77; RESP 16; TEMP 37.2; O2SAT 95
[2022-01-26] VITALS (8 sets, daily range): BP systolic 110–155; BP diastolic 62–89; PULSE 68–80; RESP 16–18; TEMP 36.6–37.1; O2SAT 91–97
[2022-01-26 07:10] LABS: Glucose, Whole Blood 113 mg/dL (60-115)
[2022-01-26] MEDS: metFORMIN HCl ER 500 MG TAB.ER.24H 1000 MG PO ×2 (08:40→18:42)
[2022-01-26] MEDS: Omeprazole 20 MG CAPSULE.DR PO (08:40)
[2022-01-26] MEDS: DULoxetine HCl 60 MG CAPSULE.DR PO (08:40)
[2022-01-26] MEDS: Aspirin Enteric Coated 81 MG TABLET.DR PO (08:41)
[2022-01-26] MEDS: lamoTRIgine 100 MG TABLET 200 MG PO ×2 (08:41→21:34)
[2022-01-26] MEDS: amLODIPine Besylate 10 MG TABLET PO (08:41)
[2022-01-26] MEDS: Clopidogrel Bisulfate 75 MG TABLET PO (08:41)
[2022-01-26] MEDS: Insulin Lispro 100 UNIT/ML 3 ML VIAL 10 UNIT SUBCUT ×3 (08:41→18:42)
[2022-01-26] MEDS: Metoprolol Tartrate 50 MG TABLET PO ×2 (08:44→21:36)
--- NOTE | 2022-01-26 11:09 | MHC.CM.ED ---
Addendum entered by Leila Adan 01/26/22 11:12: December asked about patient returning to [facility]. Referral was made to [facility] but insurance will not authorize acute rehab at this time. Original Note: Patient remains in ER. Physical therapy eval completed. Short term rehab is recommneded. [facility], [facility] and [facility] are able to offer a bed. Spoke with patient's /HCP, December via telephone at [phone]. Nelia will discuss facility options with her son and let CM know which would be 1st choice. Continue to monitor for d/c needs.
[2022-01-26 12:15] LABS: Glucose, Whole Blood 119 mg/dL (60-115)
--- NOTE | 2022-01-26 15:41 | MHC.CM.ED ---
/HCP, December, has accepted a bed at [facility]. Waiting for auth. Expect maybe tomorrow. Nleia aware. CM to follow for d/c needs.
[2022-01-26 17:59] LABS: Glucose, Whole Blood 112 mg/dL (60-115)
--- NOTE | 2022-01-26 19:12 | PC.NURSE ---
assumed care at approx 01/26/22 190
[2022-01-26] MEDS: Atorvastatin Calcium 80 MG TABLET PO (21:36)
[2022-01-26] MEDS: Tamsulosin HCL 0.4 MG CAPSULE 0.8 MG PO (21:36)
[2022-01-26] MEDS: Mirtazapine 15 MG TABLET PO (21:37)
[2022-01-26 21:56] LABS: Glucose, Whole Blood 106 mg/dL (60-115)
--- NOTE | 2022-01-26 21:56 | PC.NURSE ---
glucose at 106, marshaer text hospitalist and response was to hold insulin
[2022-01-27] VITALS (8 sets, daily range): BP systolic 114–156; BP diastolic 59–96; PULSE 70–84; RESP 14–18; TEMP 36.2–37.1; O2SAT 93–96
--- NOTE | 2022-01-27 01:16 | PC.NURSE ---
Patient continues to ask for Tylenol and Immodium which I have addressed with the ER doctor. Per MD patient is not getting Imodium and MD needs to write an order for Tylenol for patient
--- NOTE | 2022-01-27 02:58 | PC.NURSE ---
Addendum entered by Mariajose Rosario 01/27/22 03:38: pt states he wants to speak to MD since he was not going to get immodium and doesnt have an order in for tylenol; MD notified and is aware Original Note: pt stated he wanted o speak to MD since he was not going to get immodium and doesnt have an order in for tylenol; notified and is aware
[2022-01-27] MEDS: Acetaminophen 325 MG TABLET 650 MG PO ×2 (04:07→23:20)
--- NOTE | 2022-01-27 04:13 | PC.NURSE ---
administered 650 mg tylenol per MAR
[2022-01-27] MEDS: Omeprazole 20 MG CAPSULE.DR PO (06:12)
--- NOTE | 2022-01-27 06:16 | PC.NURSE ---
administered omeprazole 20 mg per MAR
[2022-01-27 07:21] LABS: Glucose, Whole Blood 115 mg/dL (60-115)
--- NOTE | 2022-01-27 10:04 | PHA.PROG ---
Admission Date/Time: Indication: BACTERMIA Weight in k.9 kg Adjusted body weight in K.84 [place] body weight in Kg: Obesity Dosing Indication % IBW: Serum Creatinine - Last 168 Hours 01/25/22 14:56 Creatinine 0.78 Estimated CrCl and GFR - Last 168 Hours 01/25/22 14:56 Estim Creat Clear Calc 99.9 Estimated GFR > 60 Vancomycin Loading Dose: 2000 MG Current Vancomycin Dosing Regimen:1000 MG Q12 Vancomycin Monitoring using AUC goal of 400 - 600 range with trough as surrogate marker: 157 533 Date and Time for next Vancomycin Level to be drawn: Pharmacist Comments on Vancomycin Plan: q12 hour dosing gave best predicted auc/trough Vancomycin dosing will take advantage of [employer] as a clinical decision support tool that uses Bayesian modeling to calculate individual patient's pharmacokinetic parameters and forecast the patient's drug concentration time course with the target goal AUC 24 range of 400 - 600 mg/L/hr.
[2022-01-27] MEDS: metFORMIN HCl ER 500 MG TAB.ER.24H 1000 MG PO ×2 (10:13→16:03)
--- NOTE | 2022-01-27 10:13 | MHC.CM.ED ---
Insurance auth has been obtained by [facility]. Received notification from DULCE Ward that patient's blood cultures came back positive and patient will be admitted. [facility] made aware and has been asked to follow patient. Continue to monitor for d/c needs.
[2022-01-27] MEDS: DULoxetine HCl 60 MG CAPSULE.DR PO (10:14)
[2022-01-27] MEDS: Metoprolol Tartrate 50 MG TABLET PO ×2 (10:14→19:36)
[2022-01-27] MEDS: lamoTRIgine 100 MG TABLET 200 MG PO ×2 (10:14→22:34)
[2022-01-27] MEDS: Clopidogrel Bisulfate 75 MG TABLET PO (10:14)
[2022-01-27] MEDS: Aspirin Enteric Coated 81 MG TABLET.DR PO (10:14)
[2022-01-27] MEDS: amLODIPine Besylate 10 MG TABLET PO (10:14)
--- NOTE | 2022-01-27 11:14 | PC.NURSE ---
700cc urine emptied
[2022-01-27 12:29] LABS: Glucose, Whole Blood 135 mg/dL (60-115)
--- NOTE | 2022-01-27 13:52 | PM.IMHP ---
History of Present Illness Date of Service: 01/27/22 Chief Complaint: Positive blood culture A 66 years old patient with PMH of CAD, BPH, diabetes, HTN among others who presented to the hospital with altered mentation. Blood work was negative for any acute findings. He was found to have urine retention as Byrd catheter was placed in the emergency. His symptoms improved and he was planned to be discharged to short-term rehab on his blood cultures came back positive. No clear source of infection. He denies any fever, chills, open wound, back pain, palpitation, change in bowel habit. One said showed coag-negative staph. The 2nd set still pending. He was started on vancomycin the Emergency Will be admitted for observation. Review of Systems Review of Systems: No fever, chills or weakness No chest pain, palpitation No shortness of breath or coughing No abdominal pain, nausea or vomiting No urinary symptoms No any rash or wounds PMFSH Medical History Anxiety BPH (benign prostatic hyperplasia) Coronary artery disease COVID-19 Diabetes Fall High blood cholesterol Hyperlipidemia Hypertension Intracranial atherosclerosis Perforation of sigmoid colon due to diverticulitis Stroke 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 hyperplasia Family History Other Coronary artery disease Diabetes Surgical History H/O neck surgery History of heart artery stent Social History Household Members: Spouse Housing: Assisted Living Facility Do you presently have visiting nurse or other home services: Yes Unable to assess alcohol history related to: Unknown Alcohol intake: never Patient Tobacco Use Status: Never used Tobacco Use of substances other than those prescribed or required for medical reasons: No Have you been hit, kicked, punched, or otherwise hurt by someone within the past year? If so, by whom?: No Do you feel safe in your current relationship?: Yes Is there a partner from a previous relationship who is making you feel unsafe now?: No Are you made to feel afraid or neglected: No Scientologist Healthcare Practices: Cheondoism Advance Directives: Yes Advance Directives on File: Yes Advance Directives Date on File: 07/15/20 Do you have thoughts of harming others: None Do you have a plan to hurt others: No Plan Recently lost weight without trying: No How much weight loss: Not applicable Eating poorly because of decreased appetite: No Nutrition screen score: 0 Nutrition Risks: Dental problems, Difficulty chewing and Difficulty swallowing Poor oral hygiene: No service: No Current occupational status: unemployed Meds Allergies Allergy/AdvReac Type Severity Reaction Status Date / Time lisinopril [LISINOPRIL] Allergy Unknown MUSCLE Verified 06/01/20 11:58 ACHES pregabalin [From [facility]ICA] Allergy Unknown UNKNOWN Verified 06/01/20 11:58 Active Medications: Current Medications Albuterol Sulfate (Albuterol Sulfate 90 Mcg 8 Gm Inhaler) 2 puff INHALE QID PRN PRN Reason: Shortness Of Breath Alprazolam (Alprazolam 0.25 Mg Tablet) 0.25 mg PO DAILY PRN PRN Reason: anxiety attack Amlodipine Besylate (Amlodipine Besylate 10 Mg Tablet) 10 mg PO DAILY [facility]; Protocol Last Admin: 01/27/22 10:14 Dose: 10 mg Aspirin (Aspirin Enteric Coated 81 Mg Tablet.) 81 mg PO DAILY [facility] Last Admin: 01/27/22 10:14 Dose: 81 mg Atorvastatin Calcium (Atorvastatin Calcium 80 Mg Tablet) 80 mg PO BEDTIME [facility] Last Admin: 01/26/22 21:36 Dose: 80 mg Clonazepam (Clonazepam 0.5 Mg Tablet) 0.5 mg PO TID PRN PRN Reason: Anxiety Clopidogrel Bisulfate (Clopidogrel Bisulfate 75 Mg Tablet) 75 mg PO DAILY [facility] Last Admin: 01/27/22 10:14 Dose: 75 mg Duloxetine HCl (Duloxetine Hcl 60 Mg Capsule.) 60 mg PO DAILY [facility] Last Admin: 01/27/22 10:14 Dose: 60 mg Fluticasone Propionate (Fluticasone Propionate Nasal 16 Gm [place]) 2 spray NOSTRIL-B DAILY [facility] Last Admin: 01/27/22 10:15 Dose: Not Given Vancomycin HCl 1,000 mg/ (Sodium Chloride) 270 mls @ 270 mls/hr IV Q12H [facility] Insulin Glargine (Insulin Glargine,Hum.Rec.Anlog 100 Unit/Ml 10 Ml Vial) 50 unit SUBCUT BEDTIME [facility] Last Admin: 01/26/22 21:58 Dose: Not Given Insulin Human Lispro (Insulin Lispro 100 Unit/Ml 3 Ml Vial) 10 unit SUBCUT TIDWM [facility] Last Admin: 01/27/22 12:27 Dose: Not Given Lamotrigine (Lamotrigine 100 Mg Tablet) 200 mg PO BID [facility] Last Admin: 01/27/22 10:14 Dose: 200 mg Metformin HCl (Metformin Hcl Er 500 Mg Tab.Er.24h) 1,000 mg PO BID@0800,1700 [facility] Last Admin: 01/27/22 10:13 Dose: 1,000 mg Metoprolol Tartrate (Metoprolol Tartrate 50 Mg Tablet) 50 mg PO BID [facility]; Protocol Last Admin: 01/27/22 10:14 Dose: 50 mg Mirtazapine (Mirtazapine 15 Mg Tablet) 15 mg PO BEDTIME [facility] Last Admin: 01/26/22 21:37 Dose: 15 mg Nitroglycerin (Nitroglycerin 0.4 Mg Tab.Subl) 0.4 mg SUBLINGUAL Q5M PRN PRN Reason: Chest Pain Non-Formulary Medication (Mjmkwwbbzog-Lvhwcyltk-Twgnesuo [Trelegy Ellipta]) 1 puff INHALE DAILY [facility] Omeprazole (Omeprazole 20 Mg Capsule.Dr) 20 mg PO DAILY@0630 [facility] Last Admin: 01/27/22 06:12 Dose: 20 mg Pharmacy Consult (Consult Rx Perform Med Rec) 1 each MISCELLANE ONCE PRN PRN Reason: Consult order Pharmacy Consult (Consult Rx Vancomycin Dosing) 1 each MISCELLANE DAILY PRN PRN Reason: Consult order Promethazine HCl (Promethazine Hcl 25 Mg Tablet) 25 mg PO Q8H PRN PRN Reason: nausea Risperidone (Risperidone 0.5 Mg Tablet) 0.5 mg PO BID PRN PRN Reason: Agitation Tamsulosin HCl (Tamsulosin Hcl 0.4 Mg Capsule) 0.8 mg PO BEDTIME [facility] Last Admin: 01/26/22 21:36 Dose: 0.8 mg Home Medications Medication Instructions Recorded Confirmed Last Taken Type albuterol sulfate 90 mcg/actuation 2 puff inhalation QID PRN 06/19/20 01/25/22 01/24/22 History aerosol inhaler Shortness Of Breath atorvastatin 80 mg tablet 80 mg PO BEDTIME 06/19/20 01/25/22 01/24/22 History clopidogrel 75 mg tablet 75 mg PO DAILY 06/19/20 01/25/22 01/24/22 History duloxetine 60 mg capsule,delayed 60 mg PO DAILY 06/19/20 01/25/22 01/24/22 History release lamotrigine 200 mg tablet 200 mg PO BID 06/19/20 01/25/22 01/24/22 History lancets 30 gauge (OneTouch Delica 06/19/20 06/19/20 Unknown History Plus Lancet) metformin 500 mg tablet,extended 1,000 mg PO BID@0800,1700 06/19/20 01/25/22 01/24/22 History release 24 hr metoprolol tartrate 50 mg tablet 50 mg PO BID 06/19/20 01/25/22 01/24/22 History clonazepam 0.5 mg tablet 0.5 mg PO TID PRN Anxiety 07/23/20 01/25/22 01/24/22 History alprazolam 0.25 mg tablet 1 tab PO DAILY PRN anxiety attack 01/25/22 01/25/22 Unknown History amlodipine 10 mg tablet 1 tab PO DAILY 01/25/22 01/25/22 01/24/22 History aspirin 81 mg tablet,delayed 1 tab PO DAILY 01/25/22 01/25/22 01/24/22 History release diclofenac sodium 1 % topical gel 4 g topical QID PRN arthritis 01/25/22 01/25/22 01/24/22 History fluticasone fur. 200 mcg-umeclid 1 puff inhalation DAILY 01/25/22 01/25/22 01/24/22 History 62.5 mcg-vilant 25 mcg inhalat.powder (Trelegy Ellipta) fluticasone propionate 50 2 spray intranasal DAILY 01/25/22 01/25/22 01/24/22 History mcg/actuation nasal spray,suspension insulin glargine 100 unit/mL (3 50 unit subcut BEDTIME 01/25/22 01/25/22 01/24/22 History mL) subcutaneous pen (Lantus Solostar U-100 Insulin) insulin lispro 100 unit/mL 10 unit subcut TIDWM 01/25/22 01/25/22 01/24/22 History subcutaneous solution (Humalog U-100 Insulin) mirtazapine 15 mg disintegrating 1 tab PO BEDTIME 01/25/22 01/25/22 01/24/22 History tablet nitroglycerin 0.4 mg sublingual 1 tab sublingual Q5M PRN Chest Pain 01/25/22 01/25/22 Unknown History tablet omeprazole 20 mg capsule,delayed 1 cap PO DAILY 01/25/22 01/25/22 01/24/22 History release promethazine 25 mg tablet 1 tab PO Q8H PRN nausea 01/25/22 01/25/22 Unknown History risperidone 0.5 mg tablet 1 tab PO BID PRN Agitation 01/25/22 01/25/22 01/24/22 History Physical Exam Vital Signs and Narrative: Vital Signs: Last Vital Signs Temp 97.5 F 01/27/22 09:17 Pulse 72 01/27/22 09:17 Resp 16 01/27/22 09:17 BP 156/96 H 01/27/22 09:17 Pulse Ox 95 01/27/22 09:17 O2 Del Method 01/27/22 09:17 BMI result Body Mass Index 33.4 Const: Other: Constitutional : Alert, oriented, not in distress Neck : Normal inspection, Supple Cardiovascular : RRR, no JVP, no lower extremity edema Respiratory : fair bilateral air entry, no crackles, wheezes or rhonchi Gastrointestinal: soft, lax, Normal bowel sounds, Non tender Skin : Warm, Dry Neurological : Alert & oriented x3, No focal deficit , CN 2-12 within normal Results Labs CBC and Chem 7: 01/25/22 12:47 01/28/22 06:38 Labs: Laboratory Results - last 24 hr 01/26/22 01/26/22 01/27/22 17:56 21:51 07:17 POC Glucose 112 106 115 01/27/22 12:17 POC Glucose 135 H Assessment and Plan (1) Acute urinary retention: Status: Acute (2) Positive blood culture: Status: Acute Plan A 66 years old patient with PMH of CAD, BPH, diabetes, HTN among others who presented to the hospital with altered mentation. Positive blood culture No clear source of infection identified High chance of contaminant next Lyme continue vancomycin meanwhile Urine retention Start finasteride continue tamsulosin Discontinue Byrd catheter and follow-up with urology as outpatient continue home medications DVT PPX Lovenox Quality Stroke Does the patient have a stroke diagnosis?: No VTE Prior VTE?: No VTE Risk Level:: Medical - moderate - high VTE Device Contraindication: Treatment Not Indicated VTE Drug Contraindication: N/A - Med Ordered
[2022-01-27 15:55] LABS: Glucose, Whole Blood 132 mg/dL (60-115)
[2022-01-27] MEDS: Enoxaparin Sodium 40 MG/0.4 ML SYRINGE SUBCUT (16:02)
[2022-01-27] MEDS: 0.9 % Sodium Chloride Flush 3 ML SYRINGE IVFLUSH ×2 (16:03→19:44)
[2022-01-27] MEDS: Mirtazapine 15 MG TABLET PO (19:36)
[2022-01-27] MEDS: Atorvastatin Calcium 80 MG TABLET PO (19:36)
[2022-01-27] MEDS: Tamsulosin HCL 0.4 MG CAPSULE 0.8 MG PO (19:37)
[2022-01-27] MEDS: Insulin Glargine,Hum.rec.anlog 100 UNIT/ML 10 ML VIAL 50 UNIT SUBCUT (19:38)
[2022-01-27 20:49] LABS: Glucose, Whole Blood 106 mg/dL (60-115)
[2022-01-27] MEDS: Nystatin Powder 15 GM BOTTLE 1 APPL TOPICAL (22:35)
[2022-01-27] MEDS: vancomycin HCL 1,000 MG in 0.9 % Sodium Chloride 250 ML 270 MG IV (22:37)
--- NOTE | 2022-01-28 01:30 | PC.NURSE ---
PT was due to void at 10pm, no void,Bladder scan at 10:45 for 347, MD Osuna notified.Per MD have PT try to void in 2 hrs, or insert george PT voided at 0100 and PVR was 73.
[2022-01-28 03:27] VITALS: BP 115/61; PULSE 66; RESP 18; TEMP 36.4; O2SAT 97
[2022-01-28] MEDS: Omeprazole 20 MG CAPSULE.DR PO (05:39)
[2022-01-28 07:20] LABS: Anion Gap 14 (12-20); Blood Urea Nitrogen 10 mg/dL (9-16); Calcium 8.5 mg/dL (8.4-10.2); Carbon Dioxide 26 mmol/L (22-29); Chloride 105 mmol/L (96-108); Creatinine Clr Calc Pharmacy 98.6; Estimated Glomerular Filt Rate > 60; Glucose Random 148 mg/dL (60-115); Potassium 3.8 mmol/L (3.3-5.1); Sodium 141 mmol/L (135-145)
[2022-01-28 07:27] LABS: Glucose, Whole Blood 135 mg/dL (60-115)
[2022-01-28 07:54] VITALS: BP 148/91; PULSE 69; RESP 18; TEMP 36.4; O2SAT 95
[2022-01-28 08:27] VITALS: PULSE 85; RESP 16; O2SAT 95
--- NOTE | 2022-01-28 08:34 | HE.PHANOTE ---
ALINA LINDSAY CONTINUE CURRENT DOSE, NEXT TROUGH DUE @2000
[2022-01-28] MEDS: 0.9 % Sodium Chloride Flush 3 ML SYRINGE IVFLUSH (09:26)
[2022-01-28] MEDS: lamoTRIgine 100 MG TABLET 200 MG PO (09:26)
[2022-01-28] MEDS: DULoxetine HCl 60 MG CAPSULE.DR PO (09:26)
[2022-01-28] MEDS: Fluticasone Propionate Nasal 16 GM SPRAY 2 SPRAY NOSTRIL-B (09:26)
[2022-01-28] MEDS: Nystatin Powder 15 GM BOTTLE 1 APPL TOPICAL (09:27)
[2022-01-28] MEDS: amLODIPine Besylate 10 MG TABLET PO (09:27)
[2022-01-28] MEDS: vancomycin HCL 1,000 MG in 0.9 % Sodium Chloride 250 ML 270 MG IV (09:27)
[2022-01-28] MEDS: Metoprolol Tartrate 50 MG TABLET PO (09:27)
[2022-01-28] MEDS: Aspirin Enteric Coated 81 MG TABLET.DR PO (09:27)
[2022-01-28] MEDS: Clopidogrel Bisulfate 75 MG TABLET PO (09:27)
[2022-01-28] MEDS: metFORMIN HCl ER 500 MG TAB.ER.24H 1000 MG PO (09:27)
[2022-01-28] MEDS: Finasteride 5 MG TABLET PO (09:27)
[2022-01-28 10:39] VITALS: BP 148/91; PULSE 69; O2SAT 95
[2022-01-28 11:14] LABS: Glucose, Whole Blood 118 mg/dL (60-115)
[2022-01-28 11:23] VITALS: BP 127/80; PULSE 66; RESP 20; TEMP 36.4; O2SAT 98
--- NOTE | 2022-01-28 11:32 | P.DS_ITS ---
DS: Providers Provider Date of Service: 01/28/22 Date of admission: 01/27/22 13:50 Primary care physician: DULCE De Paz DS: Diagnosis Discharge Diagnosis (1) Acute urinary retention: Status: Acute (2) Positive blood culture: Status: Acute DS: Summary Hospital Course Hospital Course: Admission note HPI A 66 years old patient with PMH of CAD, BPH, diabetes, HTN among others who presented to the hospital with altered mentation.? Blood work was negative for any acute findings.? He was found to have urine retention as Byrd catheter was placed in the emergency.? His symptoms improved and he was planned to be disc harged to short-term rehab on his blood cultures came back positive.? No clear source of infection.? He denies any fever, chills, open wound, back pain, palpitation, change in bowel habit.? One said showed coag-negative staph.? The 2nd set still pending.? He was started on vancomycin the Emergency Will be admitted for observation. Hospital course Blood cultures were both for contaminant as 1 said grew coagulase-negative Staph and other 1 grew Staph hominis. No source of infection identified. Vancomycin discontinued. He was treated for acute urine retention with placement of Byrd catheter. Finasteride was started on double tamsulosin. Byrd catheter discontinued and the patient was able to pass urine. Bladder scan done. Time Spent with Patient Time attestation: Total time spent providing and/or coordinating discharge services: Discharge coordination time: Less than 30 minutes Quality: Safe Use of Opioids Does Pt have an Active Cancer Diagnosis on the Problem List?: No Quality: Stroke Does the patient have a stroke diagnosis?: No Physical Exam Vital Signs: Vital Signs: Last Vital Signs Temp 97.6 F 01/28/22 11:23 Pulse 66 01/28/22 11:23 Resp 20 01/28/22 11:23 BP 127/80 01/28/22 11:23 Pulse Ox 98 01/28/22 11:23 O2 Del Method 01/28/22 11:23 BMI result Body Mass Index 33.4 Const: Other: Constitutional : Alert, oriented, not in distress Neck : Normal inspection, Supple Cardiovascular : RRR, no JVP, no lower extremity edema Respiratory : fair bilateral air entry, no crackles, wheezes or rhonchi Gastrointestinal: soft, lax, Normal bowel sounds, Non tender Skin : Warm, Dry Neurological : Alert & oriented x3, No focal deficit , CN 2-12 within normal DS: Data Data Completed and Pending Labs on day of discharge: Laboratory Results - last 24 hr 01/27/22 01/27/22 01/27/22 12:17 15:50 20:45 Sodium Potassium Chloride Carbon Dioxide Anion Gap BUN Creatinine Estim Creat Clear Calc Estimated GFR POC Glucose 135 H 132 H 106 Random Glucose Calcium 01/28/22 01/28/22 01/28/22 06:38 07:04 11:05 Sodium 141 Potassium 3.8 Chloride 105 Carbon Dioxide 26 Anion Gap 14 BUN 10 Creatinine 0.79 Estim Creat Clear Calc 98.6 Estimated GFR > 60 POC Glucose 135 H 118 H Random Glucose 148 H Calcium 8.5 Preliminary micro results at discharge 01/27/22 08:49 Blood Culture - Preliminary Blood - Venous No growth after 24 hours. 01/27/22 08:41 Blood Culture - Preliminary Blood - Venous No growth after 24 hours. 01/25/22 14:56 Blood Culture - Preliminary Blood - Venous Coag negative Staphylococcus Discharge Plan Discharge Patient Disposition: Home Health Service Discharge Diagnosis: Urine retention Referrals: Torey Lockhart MD [Physician] - 2 days Suman Lu PA [Primary Care Provider] - 1 Week Discharge Medications: New finasteride [Proscar] 5 mg Tablet 5 mg PO DAILY 30 Days Qty: 30 0RF Continued atorvastatin 80 mg tablet 80 mg PO BEDTIME lamotrigine 200 mg tablet 200 mg PO BID clopidogrel 75 mg tablet 75 mg PO DAILY metoprolol tartrate 50 mg tablet 50 mg PO BID albuterol sulfate 90 mcg/actuation HFA aerosol inhaler 2 puff inhalation QID PRN (Reason: Shortness Of Breath) metformin 500 mg tablet extended release 24 hr 1,000 mg PO BID@0800,1700 duloxetine 60 mg capsule,delayed release(DR/EC) 60 mg PO DAILY (DME) lancets [OneTouch Delica Plus Lancet] 30 gauge misc MISCELLANEOUS DAILY tamsulosin 0.4 mg Capsule 0.8 mg PO BEDTIME Qty: 30 0RF clonazepam 0.5 mg Tablet 0.5 mg PO TID PRN (Reason: Anxiety) aspirin 81 mg tablet,delayed release (DR/EC) 1 tab PO DAILY alprazolam 0.25 mg tablet 1 tab PO DAILY PRN (Reason: anxiety attack) amlodipine 10 mg tablet 1 tab PO DAILY promethazine 25 mg tablet 1 tab PO Q8H PRN (Reason: nausea) nitroglycerin 0.4 mg tablet, sublingual 1 tab sublingual Q5M PRN (Reason: Chest Pain) omeprazole 20 mg capsule,delayed release(DR/EC) 1 cap PO DAILY insulin lispro [Humalog U-100 Insulin] 100 unit/mL solution 10 unit subcut TIDWM mirtazapine 15 mg tablet,disintegrating 1 tab PO BEDTIME fluticasone propionate 50 mcg/actuation spray,suspension 2 spray intranasal DAILY risperidone 0.5 mg tablet 1 tab PO BID PRN (Reason: Agitation) insulin glargine [Lantus Solostar U-100 Insulin] 100 unit/mL (3 mL) insulin pen 50 unit subcut BEDTIME diclofenac sodium 1 % gel 4 g topical QID PRN (Reason: arthritis) Trelegy Ellipta 200-62.5-25 mcg blister with device 1 puff inhalation DAILY Discharge Orders: Discharge Order (Routine); Ordered 01/28/22 Ordered By: Parker Baker Activity on Discharge: As tolerated Stand Alone Forms: Patient Portal Discharge page Activity Restrictions/Additional Instructions: Please follow-up with your primary care physician. If you have any worsening or new symptoms, please return to the emergency room or call 911 Care Plan Goals: Read below Health Concerns: Read below Plan of Treatment: Read below Assessment: You were admitted to the hospital for monitoring as blood cultures came back positive. Final sensitivity showed contaminant to the sample with no evidence of infection in your blood. You were noticed to have urine retention which might contributed to her confusion at time of presentation. Finasteride was added to your home medications. Continue tamsulosin and finasteride as prescribed to follow-up with urology as outpatient for further evaluation Patient Instructions: Urinary Retention in Men (ED)
--- NOTE | 2022-01-28 12:13 | P.F2F_ITS ---
Service Date Service Date: 01/28/22 Encounter Date of encounter: 01/28/22 Reasons for Services Signs and symptoms assessed: Physical deconditioning Reason for physical therapy: home safety and mobility and therapeutic exercises Homebound: Leaving the home is medically contraindicated at this time without the asist of a device and/or another person due th the listed conditions above and below. Reason homebound: unsteady gait / fall risk Certification: Based on the above findings, I certify that this patient is confined to the home and needs intermittent care home care, physical therapy and/or speech therapy, or continues to need occupational therapy. The patient is under my care, and I have initiated the establishment of the plan of care. The patient will be followed by a physician who will periodically review the plan of care.
--- NOTE | 2022-01-28 12:50 | MHC.CM.PN ---
Addendum entered by Carmelina Saldana 01/28/22 14:39: [facility] ACCEPTED PATIENT FOR RN SKILLS AND HOME P.T. JUAN M IS ON HER WAY IN TO TRANSPORT HIM HOME. RN AWARE OF PLAN. Original Note: PATIENT REFUSING REHAB PLACEMENT HE IS AGREEABLE TO [facility] COMING TO THE HOME. REFERRAL TO [facility] PER REQUEST CURRENTLY AWAITING RESPONSE FROM AGENCY. PLAN IS HOME TODAY JUAN M ([phone]) AWARE
[2022-01-28 15:16] VITALS: BP 145/82; PULSE 76; RESP 18; TEMP 36.5; O2SAT 97
[2022-01-28 15:30] LABS: Glucose, Whole Blood 142 mg/dL (60-115)
[2022-01-28] MEDS: Enoxaparin Sodium 40 MG/0.4 ML SYRINGE SUBCUT (15:34)
== END 2022-01-28 15:48 | disposition home health service (06) ==
LOC: HO.ED 12:42 → HO.EDOVER 01-27 14:10 → HO.S3 01-27 14:38
PROVIDERS: Admitting Provider Student in an Organized Health Care Education/Training Program; Emergency Provider Emergency Medicine; PCP Physician Assistant Medical; Visit Provider Student in an Organized Health Care Education/Training Program
DX: R33.8 Other retention of urine (principal); R78.81 Bacteremia; N40.1 Benign prostatic hyperplasia with lower urinary tract symptoms; R41.82 Altered mental status, unspecified; I25.10 Atherosclerotic heart disease of native coronary artery without angina pectoris; I10 Essential (primary) hypertension; E11.9 Type 2 diabetes mellitus without complications; R05.9 Cough, unspecified; Z86.73 Personal history of transient ischemic attack (TIA), and cerebral infarction without residual deficits; Z79.899 Other long term (current) drug therapy; Z20.822 Contact with and (suspected) exposure to COVID-19; Z91.81 History of falling
CPT/HCPCS: 36415; 51798; 70450; 71045; 80048; 80076; 80307; 81003; 82947; 83605; 84484; 85025; 87040; 87077; 87186; 87205; 87635; 93005; 94660; 96365; 96366; 96372; 96375; 97116; 97162; 99218; 99285; J1650; J3370

== ENCOUNTER 2022-03-31 13:00 | Outpatient (REF) | payer MEDICARE, MEDICAID, SELFPAY | END 2022-03-31 13:01 | disposition home or self-care (01) | LOC: HO.LAB 13:00 | DX: R30.0 Dysuria (principal) | CPT/HCPCS: 87086 ==

== ENCOUNTER 2023-06-22 11:43 | Emergency (ER) | payer MEDICARE, MEDICAID, SELFPAY ==
--- NOTE | ~2023-06-22 | XR_ITS ---
EXAMINATION: XR CHEST CLINICAL INFORMATION: New onset hypoxia, increased oxygen requirement COMPARISON: Chest x-ray on 01/25/2022 TECHNIQUE: Frontal view of the chest was obtained. FINDINGS: vascularity. LUNGS: Lungs are clear. No pneumothorax is seen. BONES: Bony skeleton is intact. Integrated intervertebral fusion devices are seen in the lower cervical spine. XR/XR chest 1V IMPRESSION: 1. Unchanged mild cardiomegaly without radiographic signs of congestive heart failure. 2. Unchanged status post lower cervical ACDF.
[2023-06-22 11:56] VITALS: BP 118/74; BP 153/72; PULSE 91; RESP 18; TEMP 37; O2SAT 91; O2SAT 92; BMI 30.8
[2023-06-22 12:17] VITALS: BP 153/72; PULSE 91; RESP 18; TEMP 37; O2SAT 91
--- NOTE | 2023-06-22 14:04 | ED_ITS ---
HPI - General Adult General Chief complaint: General Medical Stated complaint: ALTERED,?UTI PER Time Seen by Provider: 06/22/23 13:22 Source: patient Mode of arrival: ambulatory Limitations: no limitations History of Present Illness HPI narrative: Patient 67 years old with history of coronary disease status post stents with, CHF, diabetes, hypertension, COPD, vascular dementia comes here for increased confusion,saturation dropped to 83% on room air prior to arrival was given nebulizing treatment when EMS reached saturation 90 at room air is concerned about UTI which he gets frequently with increased confusion patient denied any abdominal pain no nausea no vomiting no urinary symptom Related Data Home Medications Medication Instructions Recorded Confirmed albuterol sulfate 90 mcg/actuation 2 puff inhalation Q4H PRN Wheezing 06/19/20 06/22/23 aerosol inhaler atorvastatin 80 mg tablet 80 mg PO BEDTIME 06/19/20 06/22/23 clopidogrel 75 mg tablet 75 mg PO DAILY 06/19/20 06/22/23 duloxetine 60 mg capsule,delayed 60 mg PO DAILY 06/19/20 06/22/23 release lamotrigine 200 mg tablet 200 mg PO BID 06/19/20 06/22/23 clonazepam 0.5 mg tablet 0.5 mg PO TID PRN Anxiety 07/23/20 06/22/23 alprazolam 0.25 mg tablet 1 tab PO DAILY PRN anxiety attack 01/25/22 06/22/23 amlodipine 10 mg tablet 1 tab PO DAILY 01/25/22 06/22/23 aspirin 81 mg tablet,delayed 1 tab PO DAILY 01/25/22 06/22/23 release fluticasone propionate 50 2 spray intranasal DAILY 01/25/22 06/22/23 mcg/actuation nasal spray,suspension insulin glargine 100 unit/mL (3 50 unit subcut BEDTIME 01/25/22 06/22/23 mL) subcutaneous pen (Lantus Solostar U-100 Insulin) insulin lispro 100 unit/mL 15 unit subcut TIDWM 01/25/22 06/22/23 subcutaneous solution (Humalog U-100 Insulin) mirtazapine 15 mg disintegrating 1 tab PO BEDTIME 01/25/22 06/22/23 tablet nitroglycerin 0.4 mg sublingual 1 tab sublingual Q5M PRN Chest Pain 01/25/22 06/22/23 tablet omeprazole 20 mg capsule,delayed 1 cap PO DAILY@0630 01/25/22 06/22/23 release promethazine 25 mg tablet 1 tab PO Q8H PRN nausea 01/25/22 06/22/23 cholecalciferol (vitamin D3) 50 50 mcg PO DAILY 06/22/23 06/22/23 mcg (2,000 unit) capsule duloxetine 30 mg capsule,delayed 30 mg PO DAILY 06/22/23 06/22/23 release empagliflozin 10 mg tablet 10 mg PO DAILY 06/22/23 06/22/23 (Jardiance) finasteride 5 mg tablet (Proscar) 5 mg PO Q48H 06/22/23 06/22/23 metoprolol tartrate 100 mg tablet 100 mg PO BID 06/22/23 06/22/23 naproxen 500 mg tablet,delayed 500 mg PO BIDWM PRN Pain 06/22/23 06/22/23 release Previous Rx's Medication Instructions Recorded tamsulosin 0.4 mg capsule 0.8 mg (2 x 0.4 mg) PO BEDTIME #30 07/03/20 caps Allergies Allergy/AdvReac Type Severity Reaction Status Date / Time lisinopril [LISINOPRIL] Allergy Unknown MUSCLE Verified 06/22/23 12:03 ACHES pregabalin [From LYRICA] Allergy Unknown UNKNOWN Verified 06/22/23 12:03 Review of Systems 2 Review of Systems: Yes all other systems are reviewed and are negative [facility] Past Medical History Medical History 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 hyperplasia Hypertension COVID-19 Fall Hyperlipidemia Intracranial atherosclerosis BPH (benign prostatic hyperplasia) Coronary artery disease Diabetes Perforation of sigmoid colon due to diverticulitis High blood cholesterol Stroke Anxiety Surgical History H/O neck surgery History of heart artery stent Family History Family History Other Coronary artery disease Diabetes Social History Social History Household Members: Spouse Housing: Assisted Living Facility Do you presently have visiting nurse or other home services: Yes Unable to assess alcohol history related to: Unknown Alcohol intake: never Comment: heels elevated with pillows Patient Tobacco Use Status: Never used Tobacco Smoked in Last 30 Days: No Use of substances other than those prescribed or required for medical reasons: No Advance Directives: Yes Advance Directives on File: Yes Advance Directives Date on File: 07/15/20 service: No Current occupational status: unemployed Physical Exam ED Vital Signs: Vital Signs - 24 hr 06/22/23 11:56 06/22/23 12:17 Temperature 98.6 F 98.6 F Pulse Rate 91 91 Respiratory Rate 18 18 Blood Pressure 153/72 H 153/72 H Pulse Oximetry 91 L 91 L Oxygen Delivery Method Room Air Room Air BMI result Body Mass Index 30.8 Appearance: Alert. Oriented X3. No acute distress. Eyes: No pallor or icterus ENT: Pharynx normal. Oral Mucosa moist Neck: Normal inspection. Neck supple. CVS: Normal heart rate and rhythm. Pulses normal. Respiratory: No respiratory distress. Equal air entry bilateral, no wheezing equal air entry bilateral few rales at bases Abdomen: Soft and nontender. Bowel sounds are present, no mass palpable, no CVA tenderness Skin: Skin warm and dry. Normal skin color. Normal skin turgor. Extremities: No lower extremity edema. No calf tenderness Neuro: Oriented X 3. No motor deficit. Medical Decision Making Medical Decision Making MDM Narrative: New nonspecific symptoms clinically stable in the ER labs are stable unable to give the urine sample denies any dysuria frequency discharge patient home advised to continue his medication Differential Diagnosis Differential Diagnoses: The differential diagnosis associated with the presentation includes Admission/Observation Consideration of admission/observation: Escalation of care including admission/observation considered Lab Data [facility] Lab Attestation statement: I reviewed the patient's lab results. 06/22/23 14:03 06/22/23 14:03 Labs: Lab Results 06/22/23 06/22/23 Range/Units 14:03 15:21 WBC 10.5 (4.8-10.8) X10*3/uL RBC 5.49 (4.60-5.80) X10*6/uL Hgb 15.2 (14.0-18.0) g/dl Hct 48.3 (42.0-52.0) % MCV 88.0 (80.0-98.0) fL MCH 27.7 (27.0-33.0) pg MCHC 31.5 (31.0-36.0) g/dl RDW 13.2 (11.0-16.0) % Plt Count 238 (160-400) X10*3/uL MPV 9.9 (9.4-12.4) fL Immature Gran % (Auto) 0.5 H (0.0-0.4) % Neut % (Auto) 60.5 (45-73) % Lymph % (Auto) 26.3 (20-40) % [place] % (Auto) 7.9 (2-11) % Eos % (Auto) 4.4 H (0-4) % Baso % (Auto) 0.4 (0-2) % Lymph # (Auto) 2.8 (1.2-4.9) X10*3/uL [place] # (Auto) 0.8 (0.1-1.2) X10*3/uL Eos # (Auto) 0.5 H (0.0-0.4) X10*3/uL Baso # (Auto) 0.0 (0.0-0.2) X10*3/uL Abs Immat Gran (auto) 0.05 H (0.00-0.03) X10*3/uL Absolute Neuts (auto) 6.3 (2.0-8.3) x10*3/uL Absolute Nucleated RBC 0.000 (0.0-0.012) X10*3/uL Nucleated RBC % (auto) 0.0 (0.0-0.2) /100WBC Sodium 143 (135-145) mmol/L Potassium 3.5 (3.3-5.1) mmol/L Chloride 102 (96-108) mmol/L Carbon Dioxide 33 H (22-29) mmol/L Anion Gap 12 (12-20) BUN 8 L (9-16) mg/dL Creatinine 0.79 (0.5-1.4) mg/dL Estim Creat Clear Calc 103.0 Estimated GFR > 60 Random Glucose 123 H (60-115) mg/dL Calcium 9.2 D (8.4-10.2) mg/dL B-Natriuretic Peptide < 10 (<100) pg/mL Influenza Type A (PCR) NEGATIVE (Negative) Influenza Type B (PCR) NEGATIVE (Negative) RSV RNA Qual (PCR) NEGATIVE (Negative) SARS-CoV-2 RNA (RT-PCR) NEGATIVE (Negative) Independent Interpretation I performed an independent interpretation of an: EKG and Plain X-Ray Interpretation: Normal sinus rhythm heart rate 65 beats per minute normal interval normal axis LVH no acute ST-T no acute ischemic Radiology Impression Discussion of test interpretation with radiology: I have reviewed the radiologist's reading. Discharge Plan Discharge Clinical Impression: Weakness Patient Disposition: Home, Self-Care Instructions: Weakness (ED) Additional Instructions: Drink plenty of fluids continue your medications follow with PCP if any concerns Prescriptions: No Action atorvastatin 80 mg tablet 80 mg PO BEDTIME lamotrigine 200 mg tablet 200 mg PO BID clopidogrel 75 mg tablet 75 mg PO DAILY albuterol sulfate 90 mcg/actuation HFA aerosol inhaler 2 puff inhalation Q4H PRN (Reason: Wheezing) duloxetine 60 mg capsule,delayed release(DR/EC) 60 mg PO DAILY tamsulosin 0.4 mg Capsule 0.8 mg PO BEDTIME Qty: 30 0RF clonazepam 0.5 mg Tablet 0.5 mg PO TID PRN (Reason: Anxiety) aspirin 81 mg tablet,delayed release (DR/EC) 1 tab PO DAILY alprazolam 0.25 mg tablet 1 tab PO DAILY PRN (Reason: anxiety attack) Rx Instructions: max 3x/wk amlodipine 10 mg tablet 1 tab PO DAILY promethazine 25 mg tablet 1 tab PO Q8H PRN (Reason: nausea) nitroglycerin 0.4 mg tablet, sublingual 1 tab sublingual Q5M PRN (Reason: Chest Pain) omeprazole 20 mg capsule,delayed release(DR/EC) 1 cap PO DAILY@0630 insulin lispro [Humalog U-100 Insulin] 100 unit/mL solution 15 unit subcut TIDWM mirtazapine 15 mg tablet,disintegrating 1 tab PO BEDTIME fluticasone propionate 50 mcg/actuation spray,suspension 2 spray intranasal DAILY Rx Instructions: in each nostril insulin glargine [Lantus Solostar U-100 Insulin] 100 unit/mL (3 mL) insulin pen 50 unit subcut BEDTIME Jardiance 10 mg Tablet 10 mg PO DAILY metoprolol tartrate 100 mg Tablet 100 mg PO BID naproxen 500 mg Tablet,Delayed Release (Dr/Ec) 500 mg PO BIDWM PRN (Reason: Pain) duloxetine 30 mg Capsule,Delayed Release(Dr/Ec) 30 mg PO DAILY cholecalciferol (vitamin D3) 50 mcg (2,000 unit) Capsule 50 mcg PO DAILY finasteride [Proscar] 5 mg tablet 5 mg PO Q48H
[2023-06-22 14:06] LABS: MANUAL DIFF FLAG NO
[2023-06-22 14:15] LABS: Basophils Percent Auto 0.4 % (0-2); Eosinophils Absolute Auto 0.5 X10*3/uL (0.0-0.4); Eosinophils Percent Auto 4.4 % (0-4); Hematocrit 48.3 % (42.0-52.0); Hemoglobin 15.2 g/dl (14.0-18.0); Imm Gran Abs Auto 0.05 X10*3/uL (0.00-0.03); Imm Gran Pct Auto 0.5 % (0.0-0.4); Lymphocytes Absolute Auto 2.8 X10*3/uL (1.2-4.9); Lymphocytes Percent Auto 26.3 % (20-40); Mean Corpuscular HGB Conc 31.5 g/dl (31.0-36.0); Mean Corpuscular Hemoglobin 27.7 pg (27.0-33.0); Mean Platelet Volume 9.9 fL (9.4-12.4); Monocytes Absolute Auto 0.8 X10*3/uL (0.1-1.2); Monocytes Percent Auto 7.9 % (2-11); Neutrophils Absolute Auto 6.3 x10*3/uL (2.0-8.3); Neutrophils Percent Auto 60.5 % (45-73); Platelet Count 238 X10*3/uL (160-400); Red Blood Count 5.49 X10*6/uL (4.60-5.80); Red Cell Distribution Width 13.2 % (11.0-16.0); White Blood Count 10.5 X10*3/uL (4.8-10.8)
[2023-06-22 14:19] LABS: Anion Gap 12 (12-20); Blood Urea Nitrogen 8 mg/dL (9-16); Calcium 9.2 mg/dL (8.4-10.2); Carbon Dioxide 33 mmol/L (22-29); Chloride 102 mmol/L (96-108); Estimated Glomerular Filt Rate > 60; Glucose Random 123 mg/dL (60-115); Potassium 3.5 mmol/L (3.3-5.1); Sodium 143 mmol/L (135-145)
--- NOTE | 2023-06-22 14:21 | PHA.MEDREC ---
Pharmacy Consult ? Medication Reconciliation Pharmacy has completed the medication reconciliation. Patient with list from [facility]
--- NOTE | 2023-06-22 14:26 | ECG_ITS ---
Test Reason : ams Blood Pressure : / mmHG Vent. Rate : 065 BPM Atrial Rate : 065 BPM P-R Int : 200 ms QRS Dur : 090 ms QT Int : 442 ms P-R-T Axes : 045 -27 095 degrees QTc Int : 459 ms Artifact in tracing Normal sinus rhythm Minimal voltage criteria for LVH, may be normal variant ( R in aVL ) Nonspecific ST and T wave abnormality Abnormal ECG When compared with ECG of 25-JAN-2022 11:47, Current undetermined rhythm precludes rhythm comparison, needs review Referred By: Axel Bucio Electronically Signed By:ROHAN SOTO
[2023-06-22 14:49] LABS: B Type Natriuretic Peptide < 10 pg/mL (<100)
[2023-06-22 16:06] LABS: Influenza A PCR NEGATIVE (Negative); Influenza B PCR NEGATIVE (Negative); Resp Syncy Virus RNA Qual PCR NEGATIVE (Negative); SARS COV2 PCR INHOUSE NEGATIVE (Negative)
== END 2023-06-22 16:47 | disposition home or self-care (01) ==
PROVIDERS: Emergency Provider Internal Medicine; PCP Physician Assistant Medical
DX: R53.1 Weakness (principal); R09.02 Hypoxemia; Z20.822 Contact with and (suspected) exposure to COVID-19; Z20.828 Contact with and (suspected) exposure to other viral communicable diseases; E11.9 Type 2 diabetes mellitus without complications; I11.0 Hypertensive heart disease with heart failure; I50.9 Heart failure, unspecified; E78.5 Hyperlipidemia, unspecified; J44.9 Chronic obstructive pulmonary disease, unspecified; Z79.4 Long term (current) use of insulin; Z79.82 Long term (current) use of aspirin; Z79.899 Other long term (current) drug therapy; Z79.02 Long term (current) use of antithrombotics/antiplatelets
CPT/HCPCS: 0241U; 36415; 71045; 80048; 83880; 85025; 93005; 99283; 99284

== ENCOUNTER → 2023-06-22 14:26 | Outpatient (BNV) | payer MEDICARE, MEDICAID, SELFPAY | PROVIDERS: Emergency Provider Internal Medicine; PCP Physician Assistant Medical; Visit Provider Internal Medicine | DX: R94.31 Abnormal electrocardiogram [ECG] [EKG] (principal) | CPT/HCPCS: 93010 ==

== ENCOUNTER 2024-01-22 14:30 | Outpatient (AMB) | payer MEDICARE, MEDICAID, SELFPAY ==
[2024-01-22 14:34] VITALS: BP 140/72; PULSE 80; TEMP 36.9; O2SAT 93
--- NOTE | 2024-01-22 14:34 | AM.OFFWIN_ITS ---
Intake Vital Signs 01/22/24 14:34 Height 5 ft 9 in BMI Reason not done Patient refused/unable BP 140/72 H Blood Pressure Location Lt brachial Position Sitting Pulse 80 Pulse Source Pulse Oximeter Temp 98.4 F Temp Source Temporal Artery Scan Pulse Oximetry (%) 93 Oxygen Delivery Method Room Air Intake Visit Reasons: EP LT leg injury/unable to put any WT on it Intake Note: pt is here for left leg injury, unable to out weight on it Patient Tobacco Use Status: Never used Tobacco Allergies lisinopril [LISINOPRIL] Allergy (Unknown, Verified 01/22/24 14:42) MUSCLE ACHES pregabalin [From LYRICA] Allergy (Unknown, Verified 01/22/24 14:42) UNKNOWN Do you need a note to return to daycare/school/sports/work: No HPI EP LT leg injury/unable to put any WT on it HPI Details This note is constructed using voice recognition software. While every effort has been made to ensure accuracy, wound care center consultant errors may have been included. 68-year-old male patient presents 1 day status post fall while opening his front door, twisting motion of his left knee landing on his back. He is pain in his left knee, radiating down towards his feet. He also has a history of neuropathy for the past 3 years, which has not allowed him to labor/excavator his voiding quite well. He notes a secondary fall last night, landing on his right knee, but that does not hurt. He tried getting up to put weight on the left leg and he is unable to due to the pain. He has not tried anything to help the pain. His notes that he has excess swelling in the left medial aspect of the knee. [facility]LY [facility], [facility] Medical History 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 hyperplasia Hypertension COVID-19 Fall Hyperlipidemia Intracranial atherosclerosis BPH (benign prostatic hyperplasia) Coronary artery disease Diabetes Perforation of sigmoid colon due to diverticulitis High blood cholesterol Stroke Anxiety Surgical History H/O neck surgery History of heart artery stent Family History Other Coronary artery disease Diabetes Social History Household Members: Spouse Housing: Assisted Living Facility Do you presently have visiting nurse or other home services: Yes Unable to assess alcohol history related to: Unknown Alcohol intake: never Comment: heels elevated with pillows Patient Tobacco Use Status: Never used Tobacco Advance Directives Date on File: 07/15/20 service: No Current occupational status: unemployed Review of Systems Const All systems reviewed & are unremarkable except as noted in HPI and below Physical Exam Vital Signs: Last Vital Signs Temp 98.4 F 01/22/24 14:34 Pulse 80 01/22/24 14:34 BP 140/72 H 01/22/24 14:34 Pulse Ox 93 01/22/24 14:34 Oxygen Delivery Method Room Air 01/22/24 14:34 Const General: cooperative, healthy appearing, comfortable, no acute distress and alert Orientation/consciousness: patient oriented x3 Limitations: no limitations Skin General skin exam: no rashes or lesions noted, elasticity normal and turgor normal Neuro General: patient oriented x3 Extrem Other: Reduced flexion and extension of left knee due to pain. Medial aspect edema present. Visible ecchymosis over patella. Skin intact. Reduced strength 3/5. Unable to perform complete examination due to pain. General: Yes capillary refill normal Psych Appearance: grossly normal Mental Status: mental status grossly normal Speech and movement: Normal speech and movement present Affect: normal affect Assessment & Plan Assessment & Plan (1) Left knee pain: Code(s): M25.562 - Pain in left knee Qualifiers: Chronicity: acute Qualified Code(s): M25.562 - Pain in left knee Plan: X-ray ordered to rule out fracture, though strain is entirely likely as well. Advised rest, ice, compression, elevation, and use of NSAIDs. Kush wrap applied. Ice pack provided. Follow-up as needed or with worsening or failure to improve after 2 weeks. Plan See above for full details and plan. Coding Level of Care Code Est Pt Level 4 (16506) Diagnoses Acute pain of left knee M25.562 Chronicity: acute
== END 2024-01-22 15:51 | disposition home or self-care (01) ==
PROVIDERS: PCP Physician Assistant Medical; Visit Provider Registered Nurse
DX: M25.562 Pain in left knee (principal)
CPT/HCPCS: 99213

== ENCOUNTER 2024-01-22 15:08 | Outpatient (REF) | payer MEDICARE, MEDICAID, SELFPAY ==
--- NOTE | ~2024-01-22 | XR_ITS ---
EXAMINATION: XR KNEE, LEFT CLINICAL INFORMATION: Left knee pain COMPARISON: None available. TECHNIQUE: Three views of the left knee. FINDINGS: BONES: Bony structures are intact. There is no focal bone destruction or periosteal reaction seen. JOINTS: Alignment of joints is normal. Small osteophytes are seen at the left patellar articular border. There is moderate asymmetric decrease in medial compartment left knee joint space. SOFT TISSUE: Left suprapatellar fat pad shows bulging increase in density. Chondrocalcinosis of medial and lateral menisci is present. No radiopaque foreign body or abnormal air collection is seen. XR/XR knee LT 3V IMPRESSION: 1. No acute fracture or dislocation is seen. 2. 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 3. Chondrocalcinosis of the medial and lateral menisci, compatible with advanced arthritis, hyperparathyroidism or calcium pyrophosphate deposition disease (pseudogout). 4. Left knee joint effusion is present.
== END 2024-01-22 15:09 | disposition home or self-care (01) ==
LOC: HO.HMGCX 15:08
PROVIDERS: PCP Physician Assistant Medical; Visit Provider Registered Nurse
DX: M25.562 Pain in left knee (principal)
CPT/HCPCS: 73562

== ENCOUNTER 2024-02-08 12:37 | Emergency (ER) | payer MEDICARE, MEDICAID, SELFPAY ==
[2024-02-08 12:48] VITALS: BP 123/74; BP 127/74; PULSE 74; PULSE 76; RESP 16; TEMP 36.8; O2SAT 94; O2SAT 96; BMI 33.5
--- NOTE | 2024-02-08 13:08 | ED_ITS ---
HPI - General Adult General Chief complaint: Extremity Injury, Lower Stated complaint: LEG PAIN,DIFF AMB X1 WK,NO INJURY PER EMS Time Seen by Provider: 02/08/24 12:52 Source: patient and EMS Mode of arrival: EMS Limitations: no limitations History of Present Illness ED Provider: Dr. Romero HPI narrative: Patient sent in by for falling, according to the patient he usually uses his walker but it was next to the cough and he had to walk to get it and he fell. He states that he come in because he has calf cramping. According to she is concerned that he has a UTI. Onset (ago): week(s) Severity: moderate Pain Consistency: intermittent Related Data Home Medications ?Medication ?Instructions ?Recorded ?Confirmed albuterol sulfate 90 mcg/actuation 2 puff inhalation BID PRN Wheezing 06/19/20 02/08/24 aerosol inhaler atorvastatin 80 mg tablet 80 mg PO BEDTIME 06/19/20 02/08/24 clopidogrel 75 mg tablet 75 mg PO DAILY 06/19/20 02/08/24 duloxetine 60 mg capsule,delayed 60 mg PO DAILY 06/19/20 02/08/24 release lamotrigine 200 mg tablet 100 mg PO BID 06/19/20 02/08/24 amlodipine 10 mg tablet 1 tab PO DAILY 01/25/22 02/08/24 aspirin 81 mg tablet,delayed 1 tab PO DAILY 01/25/22 02/08/24 release fluticasone propionate 50 2 spray intranasal DAILY PRN 01/25/22 02/08/24 mcg/actuation nasal Allergies spray,suspension insulin glargine 100 unit/mL (3 50 unit subcut BEDTIME 01/25/22 02/08/24 mL) subcutaneous pen (Lantus Solostar U-100 Insulin) insulin lispro 100 unit/mL 15 unit subcut TIDAC 01/25/22 02/08/24 subcutaneous solution (Humalog U-100 Insulin) mirtazapine 15 mg disintegrating 1 tab PO BEDTIME 01/25/22 02/08/24 tablet omeprazole 20 mg capsule,delayed 1 cap PO DAILY@0630 01/25/22 02/08/24 release promethazine 25 mg tablet 1 tab PO Q8H PRN nausea 01/25/22 02/08/24 cholecalciferol (vitamin D3) 50 50 mcg PO DAILY 06/22/23 02/08/24 mcg (2,000 unit) capsule duloxetine 30 mg capsule,delayed 30 mg PO DAILY 06/22/23 02/08/24 release empagliflozin 10 mg tablet 10 mg PO DAILY 06/22/23 02/08/24 (Jardiance) finasteride 5 mg tablet (Proscar) 5 mg PO DAILY 06/22/23 02/08/24 metoprolol tartrate 100 mg tablet 50 mg PO BID 06/22/23 02/08/24 clonazepam 1 mg tablet 0.5 mg PO BID 01/22/24 02/08/24 Previous Rx's ?Medication ?Instructions ?Recorded tamsulosin 0.4 mg capsule 0.8 mg (2 x 0.4 mg) PO BEDTIME #30 07/03/20 caps Allergies Allergy/AdvReac Type Severity Reaction Status Date / Time lisinopril [LISINOPRIL] Allergy Unknown MUSCLE Verified 02/08/24 12:55 ACHES pregabalin [From LYRICA] Allergy Unknown UNKNOWN Verified 02/08/24 12:55 Review of Systems 2 Review of Systems: Yes all other systems are reviewed and are negative Neurologic: Denies Sensory deficit (Neuro) [facility] Past Medical History Medical History 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 hyperplasia Hypertension COVID-19 Fall Hyperlipidemia Intracranial atherosclerosis BPH (benign prostatic hyperplasia) Coronary artery disease Diabetes Perforation of sigmoid colon due to diverticulitis High blood cholesterol Stroke Anxiety Surgical History H/O neck surgery History of heart artery stent Family History Family History Other Coronary artery disease Diabetes Social History Social History Household Members: Spouse Housing: Assisted Living Facility Do you presently have visiting nurse or other home services: Yes Unable to assess alcohol history related to: Unknown Alcohol intake: never Comment: heels elevated with pillows Patient Tobacco Use Status: Never used Tobacco Smoked in Last 30 Days: No Use of substances other than those prescribed or required for medical reasons: No Advance Directives: Yes Advance Directives on File: Yes Advance Directives Date on File: 07/15/20 service: No Current occupational status: unemployed Physical Exam ED Vital Signs: Vital Signs - 24 hr 02/11/24 14:16 02/11/24 19:49 02/11/24 22:00 Temperature 98.3 F 97.3 F 98.3 F Pulse Rate 80 82 83 Respiratory Rate 16 18 16 Blood Pressure 117/72 117/68 94/68 Pulse Oximetry 93 93 95 Oxygen Delivery Method Room Air Room Air Room Air 02/12/24 06:11 Temperature 97.3 F Pulse Rate 76 Respiratory Rate 16 Blood Pressure 154/72 H Pulse Oximetry 94 Oxygen Delivery Method Room Air BMI result Body Mass Index 33.5 Const Other: male chronically ill, slow mentation at baseline Orientation/consciousness: oriented to person Limitations: no limitations HENMT Head: Yes normal to inspection Ears: external ears normal General nose exam: Normal external nose present Mouth: Normal oral and palatal mucosa present and oropharynx normal Throat: Yes posterior oropharynx normal Eyes General: appearance normal, both eyes and all related structures Neck Neck: Yes normal visual inspection Chest Chest palpation & inspection: normal inspection of the chest Resp Auscultation: clear to auscultation bilaterally Cardio Jugular venous distension: no JVD Rate: regular rate Rhythm: regular rhythm Heart sounds: S1 normal heart sound present and S2 normal heart sound present GI Inspection: Yes normal to inspection Palpation (GI): Soft to palpation, nontender and No hepatosplenomegaly present Auscultation: normal bowel sounds General: Yes no CVA tenderness Back/Spine/Pelvis Back: no CVA tenderness Skin General skin exam: no rashes or lesions noted Neuro Other: moves all extremities General: oriented to person Sensory Exam: No Sensory deficit (Neuro) Extrem Other: warm legs and feet, able to doppler pulse to both feet 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 Labs and imaging reviewed. UA is infected will initiate patient on Ceftin b.i.d. Physical therapy evaluated patient today and recommended acute rehab. Case management working on placement will continue to monitor for discharge needs Reevaluation(s) Reevaluation #1: Discussed with , she is concerned about his knee and a UTI, I reviewed outpatient knee xray which shows chronic changes no effusion. Physician observation started at this time as patient needs PT and Case management to determine safety as feels he is not safe at home. Resting comfortably no acute distress Time: 17:11 Reevaluation #2: 02/10/2024; patient remains in physician observation, physical therapy evaluation was completed and acute rehab was recommended, unfortunately no acute bed offers were obtained, referrals were placed, bed offer to [facility] in which was patient and 's 1st choice, awaiting insurance authorization. Vital signs stable. No distress. Will continue to monitor Time: 10:24 Reevaluation #3: 02/11/2024; patient remains in physician observation, he is awaiting short-term rehab placement pending insurance authorization. No distress. Will continue to monitor Time: 11:05 Additional Reevaluation(s): 02/12/24 0654 -- vital signs stable. No acute overnight events per nursing notes. Med rec reviewed and completed. Physician observation continued pending short- term rehab placement via case management and disposition. 02/12/24 0819 -- Observation care revealed that the patient does not meet medical necessity for hospitalization. Patient will be discharged to [facility] at 0930 today. Final disposition discussed with the patient. The patient completed observation care at 0930, total time in observation care was 92 hours. Medications Administered Generic Name Dose Route Start Last Admin Trade Name Freq PRN Reason Stop Dose Admin Acetaminophen 650 mg 02/09/24 13:40 02/10/24 16:49 Acetaminophen 325 Mg Tablet PO 650 mg Q6H PRN Administration Pain, Moderate(Pain Scale 4-6) Amlodipine Besylate 10 mg 02/09/24 09:00 02/12/24 08:07 Amlodipine Besylate 10 Mg Tablet PO 10 mg DAILY AARON Administration Protocol Aspirin 81 mg 02/09/24 09:00 02/12/24 08:07 Aspirin Enteric Coated 81 Mg Tablet. PO 81 mg DAILY AARON Administration Atorvastatin Calcium 80 mg 02/08/24 21:00 02/11/24 20:49 Atorvastatin Calcium 80 Mg Tablet PO 80 mg BEDTIME AARON Administration Cefuroxime Axetil 250 mg 02/09/24 12:45 02/11/24 23:22 Cefuroxime Axetil 250 Mg Tablet PO 02/16/24 12:44 250 mg Q12H AARON Administration Clonazepam 0.5 mg 02/08/24 21:00 02/12/24 08:07 Clonazepam 0.5 Mg Tablet PO 0.5 mg BID AARON Administration Clopidogrel Bisulfate 75 mg 02/09/24 09:00 02/12/24 08:08 Clopidogrel Bisulfate 75 Mg Tablet PO 75 mg DAILY AARON Administration Duloxetine HCl 30 mg 02/09/24 09:00 02/12/24 08:07 Duloxetine Hcl 30 Mg Capsule. PO 30 mg DAILY AARON Administration Duloxetine HCl 60 mg 02/09/24 09:00 02/12/24 08:07 Duloxetine Hcl 60 Mg Capsule. PO 60 mg DAILY AARON Administration Empagliflozin 10 mg 02/09/24 09:00 02/12/24 08:07 Empagliflozin 10 Mg Tablet PO 10 mg DAILY AARON Administration Finasteride 5 mg 02/09/24 09:00 02/12/24 08:07 Finasteride 5 Mg Tablet PO 5 mg DAILY AARON Administration Fluticasone Propionate 2 spray 02/09/24 09:00 02/12/24 08:14 Fluticasone Propionate Nasal 16 Gm [place] NOSTRIL-B Not Given DAILY [facility] Insulin Glargine 50 unit 02/08/24 21:00 02/11/24 20:48 Insulin Glargine,Hum.Rec.Anlog 100 Unit/Ml 10 Ml Vial SUBCUT 50 unit BEDTIME AARON Administration Insulin Human Lispro 15 unit 02/09/24 07:30 02/12/24 08:08 Insulin Lispro 100 Unit/Ml 3 Ml Vial SUBCUT 15 unit TIDAC AARON Administration Metoprolol Tartrate 50 mg 02/08/24 21:00 02/12/24 08:08 Metoprolol Tartrate 50 Mg Tablet PO 50 mg BID AARON Administration Protocol Mirtazapine 15 mg 02/08/24 21:00 02/11/24 20:49 Mirtazapine 15 Mg Tablet PO 15 mg BEDTIME AARON Administration Pantoprazole Sodium 20 mg 02/09/24 06:30 02/12/24 06:03 Pantoprazole Sodium 20 Mg Tablet. PO Not Given DAILY@0630 [facility] Tamsulosin HCl 0.8 mg 02/08/24 21:00 02/11/24 20:49 Tamsulosin Hcl 0.4 Mg Capsule PO 0.8 mg BEDTIME AARON Administration Vitamin D 50 mcg 02/09/24 09:00 02/12/24 08:07 Cholecalciferol (Vitamin D3) 25 Mcg Tablet PO 50 mcg DAILY AARON Administration Discontinued Medications Generic Name Dose Route Start Last Admin Trade Name Alberto PRN Reason Stop Dose Admin Acetaminophen 650 mg 02/08/24 14:52 02/08/24 15:09 Acetaminophen 325 Mg Tablet PO 02/08/24 14:53 650 mg ONCE ONE Administration Insulin Human Lispro 4 unit 02/08/24 14:16 02/08/24 15:10 Insulin Lispro 100 Unit/Ml 3 Ml Vial SUBCUT 02/08/24 14:17 4 unit ONCE ONE Administration Ketorolac Tromethamine 60 mg 02/08/24 16:00 02/08/24 16:28 Ketorolac Tromethamine 60 Mg/2 Ml Vial IM 02/08/24 16:01 60 mg ONCE ONE Administration Medical Decision Making Differential Diagnosis Differential Diagnoses: The differential diagnosis associated with the presentation includes (electrolyte abnormality, myoclonus, UTI) Admission/Observation Consideration of admission/observation: Escalation of care including admission/observation considered (upon arrival admission was considered) Lab Data 02/08/24 13:30 02/08/24 13:30 Labs: Lab Results 02/08/24 02/08/24 02/09/24 Range/Units 13:30 21:05 06:00 WBC 9.4 (4.8-10.8) X10*3/uL RBC 5.55 (4.60-5.80) X10*6/uL Hgb 15.4 (14.0-18.0) g/dl Hct 47.9 (42.0-52.0) % MCV 86.3 (80.0-98.0) fL MCH 27.7 (27.0-33.0) pg MCHC 32.2 (31.0-36.0) g/dl RDW 13.4 (11.0-16.0) % Plt Count 213 (160-400) X10*3/uL MPV 10.8 (9.4-12.4) fL Immature Gran % (Auto) 0.5 H (0.0-0.4) % Neut % (Auto) 59.0 (45-73) % Lymph % (Auto) 27.5 (20-40) % Ector % (Auto) 9.6 (2-11) % Eos % (Auto) 3.0 (0-4) % Baso % (Auto) 0.4 (0-2) % Lymph # (Auto) 2.6 (1.2-4.9) X10*3/uL Ector # (Auto) 0.9 (0.1-1.2) X10*3/uL Eos # (Auto) 0.3 (0.0-0.4) X10*3/uL Baso # (Auto) 0.0 (0.0-0.2) X10*3/uL Abs Immat Gran (auto) 0.05 H (0.00-0.03) X10*3/uL Absolute Neuts (auto) 5.5 (2.0-8.3) x10*3/uL Absolute Nucleated RBC 0.000 (0.0-0.012) X10*3/uL Nucleated RBC % (auto) 0.0 (0.0-0.2) /100WBC Hold Purple Top SEE NOTE Sodium 141 (135-145) mmol/L Potassium 4.1 (3.3-5.1) mmol/L Chloride 100 (96-108) mmol/L Carbon Dioxide 32 H (22-29) mmol/L Anion Gap 13 (12-20) BUN 11 (9-16) mg/dL Creatinine 1.01 (0.5-1.4) mg/dL Estim Creat Clear Calc 75.2 Estimated GFR > 60 POC Glucose 231 H (60-115) mg/dL Random Glucose 258 H (60-115) mg/dL Calcium 9.9 D (8.4-10.2) mg/dL Magnesium 2.0 (1.6-2.6) mg/dL Urine Color Yellow Urine Appearance Clear Urine pH 5.5 (5.0-9.0) Ur Specific Brandon >= 1.030 H (1.005-1.025) Urine Protein Negative (Neg-Trace) mg/dL Urine Glucose (UA) >=1000 H (Negative) mg/dL Urine Ketones Negative (Negative) mg/dL Urine Blood Negative (Negative) Urine Nitrite Positive H (Negative) Ur Leukocyte Esterase Negative (Negative) Urine RBC 0-2 (0-2) /HPF Urine WBC 6-10 H (0-5) /HPF Ur Squamous Epith Cells 0-2 (0-2) /HPF Urine Bacteria 3+ (None Seen) Hyaline Casts 0-2 (0-2) /LPF COVID-19 (AILIN) (Negative) COVID-19 Clin Com 02/09/24 02/09/24 02/09/24 Range/Units 07:32 08:53 11:37 WBC (4.8-10.8) X10*3/uL RBC (4.60-5.80) X10*6/uL Hgb (14.0-18.0) g/dl Hct (42.0-52.0) % MCV (80.0-98.0) fL MCH (27.0-33.0) pg MCHC (31.0-36.0) g/dl RDW (11.0-16.0) % Plt Count (160-400) X10*3/uL MPV (9.4-12.4) fL Immature Gran % (Auto) (0.0-0.4) % Neut % (Auto) (45-73) % Lymph % (Auto) (20-40) % Ector % (Auto) (2-11) % Eos % (Auto) (0-4) % Baso % (Auto) (0-2) % Lymph # (Auto) (1.2-4.9) X10*3/uL Ector # (Auto) (0.1-1.2) X10*3/uL Eos # (Auto) (0.0-0.4) X10*3/uL Baso # (Auto) (0.0-0.2) X10*3/uL Abs Immat Gran (auto) (0.00-0.03) X10*3/uL Absolute Neuts (auto) (2.0-8.3) x10*3/uL Absolute Nucleated RBC (0.0-0.012) X10*3/uL Nucleated RBC % (auto) (0.0-0.2) /100WBC Hold Purple Top Sodium (135-145) mmol/L Potassium (3.3-5.1) mmol/L Chloride (96-108) mmol/L Carbon Dioxide (22-29) mmol/L Anion Gap (12-20) BUN (9-16) mg/dL Creatinine (0.5-1.4) mg/dL Estim Creat Clear Calc Estimated GFR POC Glucose 148 H 184 H (60-115) mg/dL Random Glucose (60-115) mg/dL Calcium (8.4-10.2) mg/dL Magnesium (1.6-2.6) mg/dL Urine Color Urine Appearance Urine pH (5.0-9.0) Ur Specific Brandon (1.005-1.025) Urine Protein (Neg-Trace) mg/dL Urine Glucose (UA) (Negative) mg/dL Urine Ketones (Negative) mg/dL Urine Blood (Negative) Urine Nitrite (Negative) Ur Leukocyte Esterase (Negative) Urine RBC (0-2) /HPF Urine WBC (0-5) /HPF Ur Squamous Epith Cells (0-2) /HPF Urine Bacteria (None Seen) Hyaline Casts (0-2) /LPF COVID-19 (AILIN) Negative (Negative) COVID-19 Clin Com See Note 02/09/24 02/09/24 02/10/24 Range/Units 16:53 21:19 08:01 WBC (4.8-10.8) X10*3/uL RBC (4.60-5.80) X10*6/uL Hgb (14.0-18.0) g/dl Hct (42.0-52.0) % MCV (80.0-98.0) fL MCH (27.0-33.0) pg MCHC (31.0-36.0) g/dl RDW (11.0-16.0) % Plt Count (160-400) X10*3/uL MPV (9.4-12.4) fL Immature Gran % (Auto) (0.0-0.4) % Neut % (Auto) (45-73) % Lymph % (Auto) (20-40) % Ector % (Auto) (2-11) % Eos % (Auto) (0-4) % Baso % (Auto) (0-2) % Lymph # (Auto) (1.2-4.9) X10*3/uL Ector # (Auto) (0.1-1.2) X10*3/uL Eos # (Auto) (0.0-0.4) X10*3/uL Baso # (Auto) (0.0-0.2) X10*3/uL Abs Immat Gran (auto) (0.00-0.03) X10*3/uL Absolute Neuts (auto) (2.0-8.3) x10*3/uL Absolute Nucleated RBC (0.0-0.012) X10*3/uL Nucleated RBC % (auto) (0.0-0.2) /100WBC Hold Purple Top Sodium (135-145) mmol/L Potassium (3.3-5.1) mmol/L Chloride (96-108) mmol/L Carbon Dioxide (22-29) mmol/L Anion Gap (12-20) BUN (9-16) mg/dL Creatinine (0.5-1.4) mg/dL Estim Creat Clear Calc Estimated GFR POC Glucose 125 H 179 H 190 H (60-115) mg/dL Random Glucose (60-115) mg/dL Calcium (8.4-10.2) mg/dL Magnesium (1.6-2.6) mg/dL Urine Color Urine Appearance Urine pH (5.0-9.0) Ur Specific Brandon (1.005-1.025) Urine Protein (Neg-Trace) mg/dL Urine Glucose (UA) (Negative) mg/dL Urine Ketones (Negative) mg/dL Urine Blood (Negative) Urine Nitrite (Negative) Ur Leukocyte Esterase (Negative) Urine RBC (0-2) /HPF Urine WBC (0-5) /HPF Ur Squamous Epith Cells (0-2) /HPF Urine Bacteria (None Seen) Hyaline Casts (0-2) /LPF COVID-19 (AILIN) (Negative) COVID-19 Clin Com 02/10/24 02/10/24 02/11/24 Range/Units 11:57 16:49 07:33 WBC (4.8-10.8) X10*3/uL RBC (4.60-5.80) X10*6/uL Hgb (14.0-18.0) g/dl Hct (42.0-52.0) % MCV (80.0-98.0) fL MCH (27.0-33.0) pg MCHC (31.0-36.0) g/dl RDW (11.0-16.0) % Plt Count (160-400) X10*3/uL MPV (9.4-12.4) fL Immature Gran % (Auto) (0.0-0.4) % Neut % (Auto) (45-73) % Lymph % (Auto) (20-40) % Ector % (Auto) (2-11) % Eos % (Auto) (0-4) % Baso % (Auto) (0-2) % Lymph # (Auto) (1.2-4.9) X10*3/uL Ector # (Auto) (0.1-1.2) X10*3/uL Eos # (Auto) (0.0-0.4) X10*3/uL Baso # (Auto) (0.0-0.2) X10*3/uL Abs Immat Gran (auto) (0.00-0.03) X10*3/uL Absolute Neuts (auto) (2.0-8.3) x10*3/uL Absolute Nucleated RBC (0.0-0.012) X10*3/uL Nucleated RBC % (auto) (0.0-0.2) /100WBC Hold Purple Top Sodium (135-145) mmol/L Potassium (3.3-5.1) mmol/L Chloride (96-108) mmol/L Carbon Dioxide (22-29) mmol/L Anion Gap (12-20) BUN (9-16) mg/dL Creatinine (0.5-1.4) mg/dL Estim Creat Clear Calc Estimated GFR POC Glucose 125 H 121 H 149 H (60-115) mg/dL Random Glucose (60-115) mg/dL Calcium (8.4-10.2) mg/dL Magnesium (1.6-2.6) mg/dL Urine Color Urine Appearance Urine pH (5.0-9.0) Ur Specific Brandon (1.005-1.025) Urine Protein (Neg-Trace) mg/dL Urine Glucose (UA) (Negative) mg/dL Urine Ketones (Negative) mg/dL Urine Blood (Negative) Urine Nitrite (Negative) Ur Leukocyte Esterase (Negative) Urine RBC (0-2) /HPF Urine WBC (0-5) /HPF Ur Squamous Epith Cells (0-2) /HPF Urine Bacteria (None Seen) Hyaline Casts (0-2) /LPF COVID-19 (AILIN) (Negative) COVID-19 Clin Com 02/11/24 02/11/24 02/11/24 Range/Units 11:54 16:26 20:46 WBC (4.8-10.8) X10*3/uL RBC (4.60-5.80) X10*6/uL Hgb (14.0-18.0) g/dl Hct (42.0-52.0) % MCV (80.0-98.0) fL MCH (27.0-33.0) pg MCHC (31.0-36.0) g/dl RDW (11.0-16.0) % Plt Count (160-400) X10*3/uL MPV (9.4-12.4) fL Immature Gran % (Auto) (0.0-0.4) % Neut % (Auto) (45-73) % Lymph % (Auto) (20-40) % Ector % (Auto) (2-11) % Eos % (Auto) (0-4) % Baso % (Auto) (0-2) % Lymph # (Auto) (1.2-4.9) X10*3/uL Ector # (Auto) (0.1-1.2) X10*3/uL Eos # (Auto) (0.0-0.4) X10*3/uL Baso # (Auto) (0.0-0.2) X10*3/uL Abs Immat Gran (auto) (0.00-0.03) X10*3/uL Absolute Neuts (auto) (2.0-8.3) x10*3/uL Absolute Nucleated RBC (0.0-0.012) X10*3/uL Nucleated RBC % (auto) (0.0-0.2) /100WBC Hold Purple Top Sodium (135-145) mmol/L Potassium (3.3-5.1) mmol/L Chloride (96-108) mmol/L Carbon Dioxide (22-29) mmol/L Anion Gap (12-20) BUN (9-16) mg/dL Creatinine (0.5-1.4) mg/dL Estim Creat Clear Calc Estimated GFR POC Glucose 230 H 153 H 167 H (60-115) mg/dL Random Glucose (60-115) mg/dL Calcium (8.4-10.2) mg/dL Magnesium (1.6-2.6) mg/dL Urine Color Urine Appearance Urine pH (5.0-9.0) Ur Specific Brandon (1.005-1.025) Urine Protein (Neg-Trace) mg/dL Urine Glucose (UA) (Negative) mg/dL Urine Ketones (Negative) mg/dL Urine Blood (Negative) Urine Nitrite (Negative) Ur Leukocyte Esterase (Negative) Urine RBC (0-2) /HPF Urine WBC (0-5) /HPF Ur Squamous Epith Cells (0-2) /HPF Urine Bacteria (None Seen) Hyaline Casts (0-2) /LPF COVID-19 (AILIN) (Negative) COVID-19 Clin Com 02/12/24 Range/Units 07:44 WBC (4.8-10.8) X10*3/uL RBC (4.60-5.80) X10*6/uL Hgb (14.0-18.0) g/dl Hct (42.0-52.0) % MCV (80.0-98.0) fL MCH (27.0-33.0) pg MCHC (31.0-36.0) g/dl RDW (11.0-16.0) % Plt Count (160-400) X10*3/uL MPV (9.4-12.4) fL Immature Gran % (Auto) (0.0-0.4) % Neut % (Auto) (45-73) % Lymph % (Auto) (20-40) % Ector % (Auto) (2-11) % Eos % (Auto) (0-4) % Baso % (Auto) (0-2) % Lymph # (Auto) (1.2-4.9) X10*3/uL Ector # (Auto) (0.1-1.2) X10*3/uL Eos # (Auto) (0.0-0.4) X10*3/uL Baso # (Auto) (0.0-0.2) X10*3/uL Abs Immat Gran (auto) (0.00-0.03) X10*3/uL Absolute Neuts (auto) (2.0-8.3) x10*3/uL Absolute Nucleated RBC (0.0-0.012) X10*3/uL Nucleated RBC % (auto) (0.0-0.2) /100WBC Hold Purple Top Sodium (135-145) mmol/L Potassium (3.3-5.1) mmol/L Chloride (96-108) mmol/L Carbon Dioxide (22-29) mmol/L Anion Gap (12-20) BUN (9-16) mg/dL Creatinine (0.5-1.4) mg/dL Estim Creat Clear Calc Estimated GFR POC Glucose 146 H (60-115) mg/dL Random Glucose (60-115) mg/dL Calcium (8.4-10.2) mg/dL Magnesium (1.6-2.6) mg/dL Urine Color Urine Appearance Urine pH (5.0-9.0) Ur Specific Brandon (1.005-1.025) Urine Protein (Neg-Trace) mg/dL Urine Glucose (UA) (Negative) mg/dL Urine Ketones (Negative) mg/dL Urine Blood (Negative) Urine Nitrite (Negative) Ur Leukocyte Esterase (Negative) Urine RBC (0-2) /HPF Urine WBC (0-5) /HPF Ur Squamous Epith Cells (0-2) /HPF Urine Bacteria (None Seen) Hyaline Casts (0-2) /LPF COVID-19 (AILIN) (Negative) COVID-19 Clin Com Independent Historian Clinical information obtained from an independent historian. History obtained from or confirmed by: Spouse and EMS Chronic Conditions Patient?s care impacted by: Diabetes and Hypertension Discharge Plan Discharge Clinical Impression: Acute UTI, Knee pain Patient Disposition: Xfer Inpatient Rehab Fac Transfer Details: TO [address] Prescriptions: No Action atorvastatin 80 mg tablet 80 mg PO BEDTIME lamotrigine 200 mg tablet 100 mg PO BID clopidogrel 75 mg tablet 75 mg PO DAILY albuterol sulfate 90 mcg/actuation HFA aerosol inhaler 2 puff inhalation BID PRN (Reason: Wheezing) duloxetine 60 mg capsule,delayed release(DR/EC) 60 mg PO DAILY tamsulosin 0.4 mg Capsule 0.8 mg PO BEDTIME Qty: 30 0RF aspirin 81 mg tablet,delayed release (DR/EC) 1 tab PO DAILY amlodipine 10 mg tablet 1 tab PO DAILY promethazine 25 mg tablet 1 tab PO Q8H PRN (Reason: nausea) omeprazole 20 mg capsule,delayed release(DR/EC) 1 cap PO DAILY@0630 insulin lispro [Humalog U-100 Insulin] 100 unit/mL solution 15 unit subcut TIDAC mirtazapine 15 mg tablet,disintegrating 1 tab PO BEDTIME fluticasone propionate 50 mcg/actuation spray,suspension 2 spray intranasal DAILY PRN (Reason: Allergies) Rx Instructions: in each nostril insulin glargine [Lantus Solostar U-100 Insulin] 100 unit/mL (3 mL) insulin pen 50 unit subcut BEDTIME Jardiance 10 mg Tablet 10 mg PO DAILY metoprolol tartrate 100 mg Tablet 50 mg PO BID duloxetine 30 mg Capsule,Delayed Release(Dr/Ec) 30 mg PO DAILY cholecalciferol (vitamin D3) 50 mcg (2,000 unit) Capsule 50 mcg PO DAILY finasteride [Proscar] 5 mg tablet 5 mg PO DAILY clonazepam 1 mg tablet 0.5 mg PO BID Referrals: [facility] [Outside] Suman Lu PA [Primary Care Provider] - Print Language: Japanese
[2024-02-08 13:53] LABS: Anion Gap 13 (12-20); Blood Urea Nitrogen 11 mg/dL (9-16); Calcium 9.9 mg/dL (8.4-10.2); Carbon Dioxide 32 mmol/L (22-29); Chloride 100 mmol/L (96-108); Creatinine Clr Calc Pharmacy 75.2; Estimated Glomerular Filt Rate > 60; Glucose Random 258 mg/dL (60-115); Potassium 4.1 mmol/L (3.3-5.1); Sodium 141 mmol/L (135-145)
[2024-02-08 14:24] VITALS: BP 131/77; PULSE 69; RESP 19; TEMP 36.9; O2SAT 92
[2024-02-08 14:29] LABS: MANUAL DIFF FLAG NO
[2024-02-08 14:31] LABS: Basophils Percent Auto 0.4 % (0-2); Eosinophils Absolute Auto 0.3 X10*3/uL (0.0-0.4); Hematocrit 47.9 % (42.0-52.0); Hemoglobin 15.4 g/dl (14.0-18.0); Imm Gran Abs Auto 0.05 X10*3/uL (0.00-0.03); Imm Gran Pct Auto 0.5 % (0.0-0.4); Lymphocytes Absolute Auto 2.6 X10*3/uL (1.2-4.9); Lymphocytes Percent Auto 27.5 % (20-40); Mean Corpuscular HGB Conc 32.2 g/dl (31.0-36.0); Mean Corpuscular Hemoglobin 27.7 pg (27.0-33.0); Mean Corpuscular Volume 86.3 fL (80.0-98.0); Mean Platelet Volume 10.8 fL (9.4-12.4); Monocytes Absolute Auto 0.9 X10*3/uL (0.1-1.2); Monocytes Percent Auto 9.6 % (2-11); Neutrophils Absolute Auto 5.5 x10*3/uL (2.0-8.3); Platelet Count 213 X10*3/uL (160-400); Red Blood Count 5.55 X10*6/uL (4.60-5.80); Red Cell Distribution Width 13.4 % (11.0-16.0); White Blood Count 9.4 X10*3/uL (4.8-10.8)
[2024-02-08] MEDS: Acetaminophen 325 MG TABLET 650 MG PO (15:09)
[2024-02-08] MEDS: Insulin Lispro 100 UNIT/ML 3 ML VIAL SUBCUT (15:10)
[2024-02-08] MEDS: Ketorolac Tromethamine 60 MG/2 ML VIAL IM (16:28)
[2024-02-08 16:58] VITALS: BP 125/66; PULSE 65; RESP 12; TEMP 36.5; O2SAT 94
[2024-02-08 17:49] VITALS: BP 124/72; PULSE 65; RESP 16; TEMP 36.5; O2SAT 94
--- NOTE | 2024-02-08 17:59 | PC.NURSE ---
this RN received call from DEE Jim in the ED at this time. pt transported to overflow unit via transportation. pt presents as a&ox4. vss and up to date. pt c/o bilateral leg cramping x 7-10 days. pt verbalizes not coming in sooner d/t thinking pain would pass. pt also verbalizes increase in falls at home. pt ambulates w/ walker baseline. reports having small apartment/difficulty ambulating d/t limited space. pt medically cleared by ED aside from having UA obtained/sent to lab. pt aware urine sample is needed. pt currently resting comfortably in hospital bed/in no apparent distress. rating pain a 5/10 in legs bilaterally. pt repositioned to comfort. no sob/wob noted. respirations even/unlabored. pt pending PT eval at this time. bed alarm turned on for safety precautions. plan of care ongoing. call montano placed within reach.
--- NOTE | 2024-02-08 18:26 | MHC.EDTECH ---
Patient given dinner tray
--- NOTE | 2024-02-08 18:38 | PHA.MEDREC ---
Addendum entered by Anabell Zhang RPh 02/08/24 18:53: YVAN reviewed. Original Note: Pharmacy Consult ? Medication Reconciliation Pharmacy has completed the medication reconciliation. Confirmed medications with patients december over phone.
[2024-02-08 19:24] VITALS: BP 121/66; PULSE 62; RESP 16; TEMP 36.4; O2SAT 96
[2024-02-08 21:14] LABS: Glucose, Whole Blood 231 mg/dL (60-115)
--- NOTE | 2024-02-08 21:14 | MHC.CM.ED ---
Addendum entered by Anabelle Das 02/08/24 21:22: HCP is on file. HCP#1/ Nelia Figueroa ([phone]) and HCP #2/daughter Heather Figueroa ([phone]). Pt has a MOLST on file- patient is a full code, only exception is no dialysis. Original Note: CM met with patient at 1730 at the request of Dr. Romero. Pt lives with his , Nelia ([phone]) in [facility] in [place]. He uses a walker, but has had increasing difficulty ambulating recently. He has IT SUPPORT ENGINEER services through [employer] 38 hours/week. His daughter is his IT SUPPORT ENGINEER. He has no other services. PCP is Dr. Suman Lu at [facility] in [place]. Pt will have a PT consult in the morning. Pt is requesting acute rehab, with [facility] his first choice. He has been there in the past. CM will place referrals to local acute rehabs. Pt has [employer] Advantage. Pt tells CM that his HCP is his Nelia. Will look for HCP on file. CM will follow for discharge planning.
[2024-02-08] MEDS: Insulin Glargine,Hum.rec.anlog 100 UNIT/ML 10 ML VIAL 50 UNIT SUBCUT (21:41)
[2024-02-08] MEDS: Metoprolol Tartrate 50 MG TABLET PO (21:41)
[2024-02-08] MEDS: Atorvastatin Calcium 80 MG TABLET PO (21:42)
[2024-02-08] MEDS: clonazePAM 0.5 MG TABLET PO (21:42)
[2024-02-08] MEDS: Mirtazapine 15 MG TABLET PO (21:42)
[2024-02-08] MEDS: Tamsulosin HCL 0.4 MG CAPSULE 0.8 MG PO (21:42)
[2024-02-09] VITALS (7 sets, daily range): BP systolic 106–150; BP diastolic 54–85; PULSE 64–85; RESP 16–18; TEMP 36.6–37.2; O2SAT 93–95
[2024-02-09 06:08] LABS: Appearance Urine Clear; Color Urine Yellow; Glucose Urine UA >=1000 mg/dL (Negative); Leukocyte Esterase Urine Negative (Negative); Nitrite Urine Positive (Negative); PH 5.5 (5.0-9.0); Specific Gravity - Urine >= 1.030 (1.005-1.025); UMIC TRIGGER UACC YES; Urine Blood Negative (Negative); Urine Ketones Negative (Negative); Urine Protein Negative (Neg-Trace)
[2024-02-09 06:11] LABS: Bacteria Urine 3+ (None Seen); Hyaline Casts Urine 0-2 /LPF (0-2); RBC Urine 0-2 /HPF (0-2); Squamous Epithelial Cell Urine 0-2 /HPF (0-2); UACC Culture Trigger YES
[2024-02-09 07:36] LABS: Glucose, Whole Blood 148 mg/dL (60-115)
[2024-02-09] MEDS: Insulin Lispro 100 UNIT/ML 3 ML VIAL 15 UNIT SUBCUT ×3 (07:48→17:07)
--- NOTE | 2024-02-09 08:04 | MHC.EDTECH ---
pt given breakfast tray
--- NOTE | 2024-02-09 08:38 | MHC.CM.ED ---
Addendum entered by Leila Pham 02/09/24 13:49: [facility]. These options were discussed with patient and , Luisa. [facility]. [facility] has been asked to obtain insurance auth. Addendum entered by Leila Pham 02/09/24 10:34: No acute bed offers at this time. Referral broadcasted to all facilities contracted with [facility] within 15 miles of patient's home. Original Note: Patient remains in ER overflow. Physical therapy eval completed. Acute rehab is recommended. [facility] is not able to offer a bed. Clinical updates sent to [facility]. Continue to monitor for d/c needs.
[2024-02-09] MEDS: Cholecalciferol (Vitamin D3) 25 MCG TABLET 50 MCG PO (09:17)
[2024-02-09 09:20] LABS: COVID-19 Test Negative (Negative); IDNOW Serial# 152EDE1D
[2024-02-09] MEDS: amLODIPine Besylate 10 MG TABLET PO (09:21)
[2024-02-09] MEDS: clonazePAM 0.5 MG TABLET PO ×2 (09:22→21:34)
[2024-02-09] MEDS: Clopidogrel Bisulfate 75 MG TABLET PO (09:22)
[2024-02-09] MEDS: Empagliflozin 10 MG TABLET PO (09:22)
[2024-02-09] MEDS: Finasteride 5 MG TABLET PO (09:22)
[2024-02-09] MEDS: Aspirin Enteric Coated 81 MG TABLET.DR PO (09:22)
[2024-02-09] MEDS: DULoxetine HCl 30 MG CAPSULE.DR PO (09:22)
[2024-02-09] MEDS: DULoxetine HCl 60 MG CAPSULE.DR PO (10:24)
[2024-02-09 11:40] LABS: Glucose, Whole Blood 184 mg/dL (60-115)
[2024-02-09] MEDS: cefuroxime axetiL 250 MG TABLET PO (13:31)
[2024-02-09] MEDS: Acetaminophen 325 MG TABLET 650 MG PO (13:47)
[2024-02-09 17:01] LABS: Glucose, Whole Blood 125 mg/dL (60-115)
--- NOTE | 2024-02-09 20:28 | MHC.EDTECH ---
This tech took over care of patient at 1900 hourly rounds and vitals completed,daughter at bedside,call [facility]ano in reach
--- NOTE | 2024-02-09 21:21 | MHC.EDTECH ---
Blood sugar taken and is 179,RN made aware.
[2024-02-09 21:23] LABS: Glucose, Whole Blood 179 mg/dL (60-115)
[2024-02-09] MEDS: Insulin Glargine,Hum.rec.anlog 100 UNIT/ML 10 ML VIAL 50 UNIT SUBCUT (21:34)
[2024-02-09] MEDS: Atorvastatin Calcium 80 MG TABLET PO (21:34)
[2024-02-09] MEDS: Metoprolol Tartrate 50 MG TABLET PO (21:34)
[2024-02-09] MEDS: Tamsulosin HCL 0.4 MG CAPSULE 0.8 MG PO (21:34)
[2024-02-09] MEDS: Mirtazapine 15 MG TABLET PO (21:35)
--- NOTE | 2024-02-09 22:02 | MHC.EDTECH ---
Hourly rounds completed,patient was moved to another room so patient has a TV, patient is resting comfortably,call montano in reach
[2024-02-10] MEDS: cefuroxime axetiL 250 MG TABLET PO ×2 (00:38→12:01)
[2024-02-10 05:45] VITALS: BP 154/82; PULSE 65; RESP 16; TEMP 36.7; O2SAT 94
--- NOTE | 2024-02-10 06:31 | PC.NURSE ---
Pt AOx3, forgetful to place and situation mostly when he wakes from sleep. He is x1 assist w/walker to bathroom. Pt's daughter visited at beginning of this RN's shift and after she left CARPET LAYER and this RN found candy bars in bed w/pt. He stated his daughter had brought them in. Educated pt about eating candy bars and being diabetic. Pt stated understanding but when he was being repositioned a few hours later, empty candy bar wrappers were found underneath him which had not been there previously. Once again educated pt who once again stated understanding. Call montano within reach.
[2024-02-10] MEDS: Finasteride 5 MG TABLET PO (07:54)
[2024-02-10] MEDS: DULoxetine HCl 30 MG CAPSULE.DR PO (07:54)
[2024-02-10] MEDS: Cholecalciferol (Vitamin D3) 25 MCG TABLET 50 MCG PO (07:54)
[2024-02-10] MEDS: clonazePAM 0.5 MG TABLET PO ×2 (07:54→19:48)
[2024-02-10 07:55] VITALS: BP 119/75; PULSE 76
[2024-02-10] MEDS: Clopidogrel Bisulfate 75 MG TABLET PO (07:55)
[2024-02-10] MEDS: Metoprolol Tartrate 50 MG TABLET PO ×2 (07:55→19:47)
[2024-02-10] MEDS: amLODIPine Besylate 10 MG TABLET PO (07:55)
[2024-02-10] MEDS: Aspirin Enteric Coated 81 MG TABLET.DR PO (07:55)
[2024-02-10] MEDS: Empagliflozin 10 MG TABLET PO (07:55)
[2024-02-10] MEDS: Insulin Lispro 100 UNIT/ML 3 ML VIAL 15 UNIT SUBCUT ×3 (07:57→16:50)
[2024-02-10 08:15] LABS: Glucose, Whole Blood 190 mg/dL (60-115)
--- NOTE | 2024-02-10 09:32 | PC.NURSE ---
Patient A x 3, able to make needs known. Comfortably resting in bed, complains of occasional pain knots to the bilateral lower legs. States that this is something that he deals with at home and it tends to go away after a few minutes. Pain medications offered but patient declined. Patient is awaiting authorization for placement but patient expressed today that he would like to go home instead of being placed somewhere. Patient asking to speak with someone from case management, case management notified. Call montano within reach, all other needs met at this time.
[2024-02-10] MEDS: DULoxetine HCl 60 MG CAPSULE.DR PO (10:20)
[2024-02-10 12:01] LABS: Glucose, Whole Blood 125 mg/dL (60-115)
--- NOTE | 2024-02-10 12:15 | MHC.CM.PN ---
[facility] CM WILL CONTINUE TO FOLLOW
[2024-02-10] MEDS: Acetaminophen 325 MG TABLET 650 MG PO (16:49)
[2024-02-10 16:55] LABS: Glucose, Whole Blood 121 mg/dL (60-115)
[2024-02-10 17:38] VITALS: BP 143/73; PULSE 78; RESP 19; TEMP 36.7; O2SAT 95
[2024-02-10 19:30] VITALS: BP 180/83; PULSE 76; RESP 14; TEMP 37.1; O2SAT 94
[2024-02-10] MEDS: Atorvastatin Calcium 80 MG TABLET PO (19:47)
[2024-02-10] MEDS: Tamsulosin HCL 0.4 MG CAPSULE 0.8 MG PO (19:47)
[2024-02-10] MEDS: Insulin Glargine,Hum.rec.anlog 100 UNIT/ML 10 ML VIAL 50 UNIT SUBCUT (19:48)
[2024-02-10] MEDS: Mirtazapine 15 MG TABLET PO (19:48)
[2024-02-11] VITALS (7 sets, daily range): BP systolic 94–140; BP diastolic 68–90; PULSE 65–83; RESP 14–18; TEMP 36.3–36.9; O2SAT 93–98
[2024-02-11] MEDS: cefuroxime axetiL 250 MG TABLET PO ×3 (00:42→23:22)
--- NOTE | 2024-02-11 07:09 | PC.NURSE ---
report recieved from previous RN, patient resting comfortably on stretcher at this time, offering no complaints, per overnight RN no overnight events. all safety maintained.
[2024-02-11 07:37] LABS: Glucose, Whole Blood 149 mg/dL (60-115)
--- NOTE | 2024-02-11 07:38 | PC.NURSE ---
pharmacy called to request duloxetine
[2024-02-11] MEDS: Insulin Lispro 100 UNIT/ML 3 ML VIAL 15 UNIT SUBCUT ×3 (07:56→16:36)
[2024-02-11] MEDS: amLODIPine Besylate 10 MG TABLET PO (07:57)
[2024-02-11] MEDS: Cholecalciferol (Vitamin D3) 25 MCG TABLET 50 MCG PO (07:57)
[2024-02-11] MEDS: DULoxetine HCl 30 MG CAPSULE.DR PO (07:58)
[2024-02-11] MEDS: Empagliflozin 10 MG TABLET PO (07:58)
[2024-02-11] MEDS: Clopidogrel Bisulfate 75 MG TABLET PO (07:58)
[2024-02-11] MEDS: clonazePAM 0.5 MG TABLET PO ×2 (07:59→20:49)
[2024-02-11] MEDS: DULoxetine HCl 60 MG CAPSULE.DR PO (07:59)
[2024-02-11] MEDS: Aspirin Enteric Coated 81 MG TABLET.DR PO (07:59)
[2024-02-11] MEDS: Metoprolol Tartrate 50 MG TABLET PO ×2 (07:59→20:49)
[2024-02-11] MEDS: Finasteride 5 MG TABLET PO (08:18)
--- NOTE | 2024-02-11 08:20 | PC.NURSE ---
patient medicated per SEP and provided with breakfast tray, updated on plan of care, agreeable at this time
--- NOTE | 2024-02-11 09:58 | PC.NURSE ---
patient called, will be coming to visit patient later today, patient made aware, patient disclosing frustration to this RN regarding being placed in rehab facility, states i know i cant do everything anymore, i just want to go home and live my life as best i can educated patient that the rehab is meant for him to regain strength so he can continue his normal activities and not a assisted care facility, patient agreeable and calm at this time.
[2024-02-11 11:57] LABS: Glucose, Whole Blood 230 mg/dL (60-115)
--- NOTE | 2024-02-11 12:01 | PC.NURSE ---
patient medicated per MAR provided with lunch tray, at bedside now. patient offering no complaints
--- NOTE | 2024-02-11 13:51 | MHC.CM.PN ---
Addendum entered by Ijeoma Dale 02/11/24 16:33: [facility], BLS TRANSPORT BOOKED FOR 9:30 AM 02/11 VIA [employer]. MESSAGE LEFT FOR december Original Note: CM MET AND PT TO OFFER SUPPORT AND PROVIDE A HMG BROCHURE PER REQUEST OF HIS . DECEMBER CELL # ([phone]) CM CONTINUES TO AWAIT INSURANCE AUTH VIA [facility]
[2024-02-11 16:30] LABS: Glucose, Whole Blood 153 mg/dL (60-115)
--- NOTE | 2024-02-11 16:40 | PC.NURSE ---
POC glucose 153, patient medicated per SEP and provided with meal tray
--- NOTE | 2024-02-11 19:25 | PC.NURSE ---
at 1855 received report from off going nurse, Argentina Dey RN
[2024-02-11] MEDS: Insulin Glargine,Hum.rec.anlog 100 UNIT/ML 10 ML VIAL 50 UNIT SUBCUT (20:48)
[2024-02-11 20:49] LABS: Glucose, Whole Blood 167 mg/dL (60-115)
[2024-02-11] MEDS: Atorvastatin Calcium 80 MG TABLET PO (20:49)
[2024-02-11] MEDS: Mirtazapine 15 MG TABLET PO (20:49)
[2024-02-11] MEDS: Tamsulosin HCL 0.4 MG CAPSULE 0.8 MG PO (20:49)
--- NOTE | 2024-02-11 21:01 | PC.NURSE ---
Pt resting quietly on the bed, resp with ease, pt watching tv at this time, denies any needs, will cont plan of care
--- NOTE | 2024-02-11 23:00 | PC.NURSE ---
report given to Alexandr PRICE
[2024-02-12 06:11] VITALS: BP 154/72; PULSE 76; RESP 16; TEMP 36.3; O2SAT 94
--- NOTE | 2024-02-12 06:11 | MHC.EDTECH ---
0600 rounding done ,Vitals taken ,Patient slept all night ,up1 time to use the bathroom ,was a side by side asst for ambulation to bathroom ,Call montano within Patient reach .
--- NOTE | 2024-02-12 06:40 | PC.NURSE ---
Pt remains AOx3, confused and forgetful at times but easily reoriented. Ambulated w/walker and stby to bathroom 1x this shift. He had no c/o pain at that time. Pt is requesting to know which [facility] he is being transferred to. Will pass onto dayshift RN to ask case management and let pt know. Call montano within reach.
[2024-02-12 07:48] LABS: Glucose, Whole Blood 146 mg/dL (60-115)
--- NOTE | 2024-02-12 07:52 | MHC.EDTECH ---
checked patients poc glucose. patient given breakfast and eating at this time.
[2024-02-12] MEDS: Cholecalciferol (Vitamin D3) 25 MCG TABLET 50 MCG PO (08:07)
[2024-02-12] MEDS: Empagliflozin 10 MG TABLET PO (08:07)
[2024-02-12] MEDS: amLODIPine Besylate 10 MG TABLET PO (08:07)
[2024-02-12] MEDS: Finasteride 5 MG TABLET PO (08:07)
[2024-02-12] MEDS: Aspirin Enteric Coated 81 MG TABLET.DR PO (08:07)
[2024-02-12] MEDS: DULoxetine HCl 60 MG CAPSULE.DR PO (08:07)
[2024-02-12] MEDS: DULoxetine HCl 30 MG CAPSULE.DR PO (08:07)
[2024-02-12] MEDS: clonazePAM 0.5 MG TABLET PO (08:07)
[2024-02-12] MEDS: Clopidogrel Bisulfate 75 MG TABLET PO (08:08)
[2024-02-12] MEDS: Insulin Lispro 100 UNIT/ML 3 ML VIAL 15 UNIT SUBCUT (08:08)
[2024-02-12] MEDS: Metoprolol Tartrate 50 MG TABLET PO (08:08)
--- NOTE | 2024-02-12 08:24 | MHC.EDTECH ---
CALLED [facility] FOR TRANSPORT SPOKE WITH CHRISTINA AT 8:23AM ETA 9:30AM
--- NOTE | 2024-02-12 08:26 | PC.NURSE ---
Alert and oriented, denies pain or discomfort. Ate well for breakfast. Aware that plan is for discharge via ambulance to [facility] in [place]
--- NOTE | 2024-02-12 09:19 | PC.NURSE ---
Called [facility] in [place] to give report , transferred to unit 2 , transferred to voicemail of Edna Hinds nursing comfort station supervisor , left message to call [facility] when ready for report on patient. December updated on dischrage plan
[2024-02-12 09:45] VITALS: BP 154/72; PULSE 76; RESP 18; TEMP 36.3; O2SAT 94
== END 2024-02-12 09:47 ==
PROVIDERS: Physician Assistant; Emergency Provider Emergency Medicine; PCP Physician Assistant Medical
DX: N39.0 Urinary tract infection, site not specified (principal); R26.2 Difficulty in walking, not elsewhere classified; M79.604 Pain in right leg; M79.605 Pain in left leg; Z79.899 Other long term (current) drug therapy; Z11.52 Encounter for screening for COVID-19
CPT/HCPCS: 36415; 80048; 81001; 82947; 83735; 85025; 87086; 87088; 87186; 87635; 96372; 97162; 99285; J1885

== ENCOUNTER 2024-03-13 13:05 | Outpatient (AMB) | payer MEDICARE, MEDICAID, SELFPAY ==
--- NOTE | 2024-03-13 13:07 | MHC.OFFVIS ---
Vital Signs 03/13/24 13:12 Height 5 ft 6.5 in Weight 194 lb BMI 30.8 Intake Visit Reasons: Left knee pain Intake Note: Dragan is a 68 year old male who presents with complaints of progressively worsening left knee pain and giving way. The patient states that he 1st injured his left knee approximately 20 years ago. Underwent left knee ?meniscus surgery? by another provider. He got fairly good relief from that surgery initially. The patient states that several months ago he re-injured his knee. He twisted his knee and had acute onset of pain. Most of the pain is along the medial aspect of his knee. States that his left knee will give out several times per day. 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 He does walk with a walker. Has done physical therapy exercises which aggravated his pain. He has also tried Tylenol and aspirin which gave him minimal relief. Allergies lisinopril [LISINOPRIL] Allergy (Unknown, Verified 03/13/24 13:14) MUSCLE ACHES pregabalin [From LYRICA] Allergy (Unknown, Verified 03/13/24 13:14) UNKNOWN Medication List - Last Reconciled 03/13/24 by Jorje Dimas MD albuterol sulfate 90 mcg/actuation 2 puffs inhalation BID PRN amlodipine 1 tab PO DAILY aspirin 1 tab PO DAILY atorvastatin 80 mg PO BEDTIME cefuroxime axetil 250 mg PO BID 4 days cholecalciferol (vitamin D3) 50 mcg PO DAILY clonazepam 0.5 mg PO BID clopidogrel 75 mg PO DAILY duloxetine 60 mg PO DAILY duloxetine 30 mg PO DAILY empagliflozin (Jardiance) 10 mg PO DAILY finasteride (Proscar) 5 mg PO DAILY fluticasone propionate 50 mcg/actuation 2 sprays intranasal DAILY PRN insulin glargine (Lantus Solostar U-100 Insulin) 50 units subcut BEDTIME insulin lispro (Humalog U-100 Insulin) 15 units subcut TIDAC lamotrigine 100 mg PO BID metoprolol tartrate 50 mg PO BID mirtazapine 1 tab PO BEDTIME omeprazole 1 cap PO DAILY@0630 promethazine 1 tab PO Q8H PRN tamsulosin 0.8 mg (2 x 0.4 mg) PO BEDTIME [facility] Medical History 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 hyperplasia Hypertension COVID-19 Fall Hyperlipidemia Intracranial atherosclerosis BPH (benign prostatic hyperplasia) Coronary artery disease Diabetes Perforation of sigmoid colon due to diverticulitis High blood cholesterol Stroke Anxiety Surgical History H/O neck surgery History of heart artery stent Family History Other Coronary artery disease Diabetes Social History Household Members: Spouse Housing: Assisted Living Facility Do you presently have visiting nurse or other home services: Yes Unable to assess alcohol history related to: Unknown Alcohol intake: never Comment: heels elevated with pillows Patient Tobacco Use Status: Never used Tobacco Advance Directives Date on File: 07/15/20 service: No Current occupational status: unemployed Physical Exam Vital Signs: BMI result Body Mass Index 30.8 Const Other: Well-nourished well-developed very friendly male awake alert and oriented x3 in no acute distress Extrem Other: Bilateral lower extremity examination shows good capillary refill, no skin lesions noted, normal sensation light touch Left knee examination shows a minimal effusion, minimal crepitus with range of motion, positive Conor's test, tenderness along his medial joint line, no instability Results Reviewed Results Reviewed: Standing full weight-bearing x-rays of the patient's left knee show mild diffuse joint space narrowing, no acute bony abnormalities Assessment & Plan Assessment & Plan (1) Left knee pain: Code(s): M25.562 - Pain in left knee Category: Medical Plan Mr. Figueroa presents with left knee pain and mechanical symptoms most likely due to a recurrent tear of his medial meniscus. Thus, I will send the patient for an MRI of his left knee for further evaluation. I will see him back once the MRI is completed to discuss the findings and treatment options. He will continue with his activity modifications in the meantime. Feel free to call me at any time should questions regarding his orthopedic management arise. Thank you very much for asking me to see this very friendly gentleman. I spent 20 minutes in reviewing the patient's records and imaging studies, seeing the patient and documenting in the medical record. Orders: Orders MR knee LT wo con Today M25.562 - Pain in left knee Coding Level of Care Code New Pt Level 3 (13495) Diagnoses Left knee pain M25.562
[2024-03-13 13:12] VITALS: BMI 30.8
== END 2024-03-13 13:32 | disposition home or self-care (01) ==
PROVIDERS: PCP Physician Assistant Medical; Visit Provider Orthopaedic Surgery
DX: M25.562 Pain in left knee (principal)
CPT/HCPCS: 99203

== ENCOUNTER → 2024-03-13 13:05 | Outpatient (BNVA) | payer MEDICARE, MEDICAID, SELFPAY | PROVIDERS: PCP Physician Assistant Medical; Visit Provider Orthopaedic Surgery | DX: M25.562 Pain in left knee (principal) | CPT/HCPCS: 99202 ==

== ENCOUNTER 2024-03-30 20:00 | Outpatient (REF) | payer MEDICARE, MEDICAID, SELFPAY ==
--- NOTE | ~2024-03-30 | MR_ITS ---
EXAMINATION: MR KNEE WITHOUT CONTRAST, LEFT CLINICAL INFORMATION: Pain in the left knee. COMPARISON: Left knee January 2024. TECHNIQUE: MRI of the knee without contrast was performed using routine sequences on a high-field scanner. FINDINGS: MENISCI: Medial Meniscus: There is marked irregularity and attenuation of the body of the meniscus. There is also marked irregularity and abnormal signal with contrast extension into most of the posterior horn. Findings indicative of complex tearing of the posterior horn and body of the meniscus. Anterior horn intact. Lateral Meniscus: Intact. LIGAMENTS: Cruciate: Intact. Collateral: Medial collateral ligament: There is mild heterogeneous increased signal in the proximal ligament compatible with partial tearing. Lateral ligaments intact. EXTENSOR MECHANISM: Intact. ARTICULAR CARTILAGE/BONE: Patellofemoral Compartment: There is non-uniform of the high-grade cartilage loss and no heterogeneity throughout the central trochlea sulcus measuring up to 12 mm transverse and craniocaudal throughout the trochlea. Mild cartilage heterogeneity of the medial and lateral facets of the patella. Findings indicative of iham-hn-erzkkynl osteoarthritis. Medial Compartment: There is diffuse primarily high-grade cartilage loss throughout the weightbearing portion of the compartment and extending into the anterior non-weightbearing portion of the femoral articular surface. There is associated subchondral cysts and marginal osteophytes. There are prominent marginal osteophytes. Findings indicative of severe osteoarthritis. Lateral Compartment: There are small marginal osteophytes cartilage grossly intact. Overall, minimal arthrosis. JOINT FLUID AND BURSAE: There is a mild joint effusion and synovitis. MR/MR knee LT wo con IMPRESSION: 1. Complex tearing of the medial meniscus. 2. Partial tear of the proximal medial collateral ligament. 3. Tricompartmental osteoarthritis with degenerative changes most prominent and severe involving the medial compartment. 4. Joint effusion and synovitis. Electronically signed by: Gilmar Villalobos MD 04/01/2024 04:03 PM EDT
== END 2024-03-30 20:01 | disposition home or self-care (01) ==
LOC: HO.MRI 20:00
PROVIDERS: PCP Physician Assistant Medical; Visit Provider Orthopaedic Surgery
DX: M25.562 Pain in left knee (principal)
CPT/HCPCS: 73721

== ENCOUNTER 2024-04-04 13:51 | Outpatient (AMB) | payer MEDICARE, MEDICAID, SELFPAY ==
[2024-04-04 14:01] VITALS: BP 107/65; PULSE 78; O2SAT 93; BMI 31.6
--- NOTE | 2024-04-04 14:01 | A.OFFVIS_ITS ---
Vital Signs 04/04/24 14:01 Height 5 ft 6 in Weight 196 lb BMI 31.6 BP 107/65 Blood Pressure Location Lt brachial Position Sitting Pulse 78 Pulse Source Pulse Oximeter Pulse Oximetry (%) 93 Oxygen Delivery Method Room Air Intake Visit Reasons: Chronic Leg Pain Allergies lisinopril [LISINOPRIL] Allergy (Unknown, Verified 04/04/24 14:02) MUSCLE ACHES pregabalin [From LYRICA] Allergy (Unknown, Verified 04/04/24 14:02) UNKNOWN Medication List - Last Reconciled 04/04/24 by Adriana Gonzalez albuterol sulfate 90 mcg/actuation 2 puffs inhalation BID PRN amlodipine 1 tab PO DAILY aspirin 1 tab PO DAILY atorvastatin 80 mg PO BEDTIME cefuroxime axetil 250 mg PO BID 4 days cholecalciferol (vitamin D3) 50 mcg PO DAILY clonazepam 0.5 mg PO BID clopidogrel 75 mg PO DAILY duloxetine 60 mg PO DAILY duloxetine 30 mg PO DAILY empagliflozin (Jardiance) 10 mg PO DAILY finasteride (Proscar) 5 mg PO DAILY fluticasone propionate 50 mcg/actuation 2 sprays intranasal DAILY PRN insulin glargine (Lantus Solostar U-100 Insulin) 50 units subcut BEDTIME insulin lispro (Humalog U-100 Insulin) 15 units subcut TIDAC lamotrigine 100 mg PO BID metoprolol tartrate 50 mg PO BID mirtazapine 1 tab PO BEDTIME omeprazole 1 cap PO DAILY@0630 promethazine 1 tab PO Q8H PRN tamsulosin 0.8 mg (2 x 0.4 mg) PO BEDTIME HPI Comments Details: Dragan is a very pleasant 68-year-old male who presents to the office today for evaluation management of his chronic left knee pain. Today is in a wheelchair, accompanied by his . Has been having difficulty with ambulation secondary to his left knee pain. Recently evaluated by Orthopedics, MRI was performed. Results as per below. These results were reviewed with the patient and his today They have a scheduled follow up with Orthopedics in 2 weeks Patient complaining of 4 months of left knee pain, started after he fell. Pain along lateral joint line, states it feels unstable and he is afraid he is going to fall when he is standing and walking. He is taking Tylenol for the pain. Unable to take nonsteroidal anti- inflammatory medications due to current use of anticoagulants He has been doing physical therapy without improvement. Pain is worse with moving, standing and when changing from sitting to standing position Pain today rated as an 8/10, constant and worse in the afternoon in the evening. Pain improves with rest and while sleeping. In terms of muscle damage condition is described as throbbing, aching, piercing, pinching, cramping Pain is negatively impacting patient's enjoyment of life, general activity, wa lking, ability to care for himself and ability to perform activities of daily living Denies current use of nicotine, tobacco, alcohol or illicit substances Denies implantable devices, pacemaker or defibrillator Endorses current use of anticoagulants [facility] Medical History 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 hyperplasia Hypertension COVID-19 Fall Hyperlipidemia Intracranial atherosclerosis BPH (benign prostatic hyperplasia) Coronary artery disease Diabetes Perforation of sigmoid colon due to diverticulitis High blood cholesterol Stroke Anxiety Surgical History H/O neck surgery History of heart artery stent Family History Other Coronary artery disease Diabetes Social History Household Members: Spouse Housing: Assisted Living Facility Do you presently have visiting nurse or other home services: Yes Unable to assess alcohol history related to: Unknown Alcohol intake: never Comment: heels elevated with pillows Patient Tobacco Use Status: Never used Tobacco Advance Directives Date on File: 07/15/20 service: No Current occupational status: unemployed Review of Systems Const All systems reviewed & are unremarkable except as noted in HPI and below Physical Exam Vital Signs: Last Vital Signs Pulse 78 04/04/24 14:01 BP 107/65 04/04/24 14:01 Pulse Ox 93 04/04/24 14:01 Oxygen Delivery Method Room Air 04/04/24 14:01 BMI result Body Mass Index 31.6 General: awake, alert, oriented. Answers questions appropriately. Fully engaged in examination. Skin: warm, dry, intact HEENT: Normocephalic. Hearing intact. Cardiac: External chest normal in appearance. Respiratory: No cough, audible wheezing or stridor. Abdomen: without gross distension. MS: No obvious swelling or deformities. Tenderness along lateral joint line and posterior knee. Positive crepitus. Full range of motion Neurological: Oriented to person, place, time and situation. Thought process intact. In wheelchair Psychiatric: Appropriate mood and affect. Good judgment and insight. Results Reviewed Results Reviewed: 03/30/24 MR/MR knee LT wo con IMPRESSION: 1. Complex tearing of the medial meniscus. 2. Partial tear of the proximal medial collateral ligament. 3. Tricompartmental osteoarthritis with degenerative changes most prominent and severe involving the medial compartment. 4. Joint effusion and synovitis. Assessment & Plan Assessment & Plan (1) Left knee pain: Code(s): M25.562 - Pain in left knee Category: Medical Plan MRI reviewed, results as per above Follow up with ortho as planned Discussed options for treatment including diagnostic injections, peripheral nerve stimulation was sprint, RFA and more permanent neuromodulation. Patient will return to our office after they see orthopedics. If no surgery is warranted we can proceed with 1 of the above options. All questions and concerns were answered, patient agrees with the plan. Follow up after ortho, sooner if needed Coding Level of Care Code New Pt Level 4 (25989) Complex EM visit Add On G2211 Diagnoses Left knee pain M25.562
== END 2024-04-04 14:26 | disposition home or self-care (01) ==
PROVIDERS: PCP Physician Assistant Medical; Visit Provider Registered Nurse Emergency
DX: M25.562 Pain in left knee (principal)
CPT/HCPCS: 99204; G2211

== ENCOUNTER → 2024-04-04 13:51 | Outpatient (BNVA) | payer MEDICARE, MEDICAID, SELFPAY | PROVIDERS: PCP Physician Assistant Medical; Visit Provider Registered Nurse Emergency | DX: M25.562 Pain in left knee (principal) | CPT/HCPCS: 99202 ==

== ENCOUNTER 2024-04-16 14:53 | Outpatient (AMB) | payer MEDICARE, MEDICAID, SELFPAY ==
[2024-04-16 14:54] VITALS: BMI 31.6
--- NOTE | 2024-04-16 14:54 | A.OFFVIS_ITS ---
Vital Signs 04/16/24 14:54 Height 5 ft 6 in Weight 196 lb BMI 31.6 Intake Visit Reasons: OV-Left knee MRI review Intake Note: Dragan is a 68 year old male who presents with complaints of progressively worsening left knee pain and giving way. The patient states that he 1st injured his left knee approximately 20 years ago. Underwent left knee ?meniscus surgery? by another provider. He got fairly good relief from that surgery initially. The patient states that several months ago he re-injured his knee. He twisted his knee and had acute onset of pain. Most of the pain is along the medial aspect of his knee. States that his left knee will give out several times per day. 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 He does walk with a walker. Has done physical therapy exercises which aggravated his pain. He has also tried Tylenol and aspirin which gave him minimal relief. Allergies lisinopril [LISINOPRIL] Allergy (Unknown, Verified 04/16/24 15:00) MUSCLE ACHES pregabalin [From LYRICA] Allergy (Unknown, Verified 04/16/24 15:00) UNKNOWN Medication List - Last Reconciled 04/16/24 by Jorje Dimas MD albuterol sulfate 90 mcg/actuation 2 puffs inhalation BID PRN amlodipine 1 tab PO DAILY aspirin 1 tab PO DAILY atorvastatin 80 mg PO BEDTIME cefuroxime axetil 250 mg PO BID 4 days cholecalciferol (vitamin D3) 50 mcg PO DAILY clonazepam 0.5 mg PO BID clopidogrel 75 mg PO DAILY duloxetine 60 mg PO DAILY duloxetine 30 mg PO DAILY empagliflozin (Jardiance) 10 mg PO DAILY finasteride (Proscar) 5 mg PO DAILY fluticasone propionate 50 mcg/actuation 2 sprays intranasal DAILY PRN insulin glargine (Lantus Solostar U-100 Insulin) 50 units subcut BEDTIME insulin lispro (Humalog U-100 Insulin) 15 units subcut TIDAC lamotrigine 100 mg PO BID metoprolol tartrate 50 mg PO BID mirtazapine 1 tab PO BEDTIME omeprazole 1 cap PO DAILY@0630 promethazine 1 tab PO Q8H PRN tamsulosin 0.8 mg (2 x 0.4 mg) PO BEDTIME COUNTS INCLUDE 234 BEDS AT THE [facility] Medical History 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 hyperplasia Hypertension COVID-19 Fall Hyperlipidemia Intracranial atherosclerosis BPH (benign prostatic hyperplasia) Coronary artery disease Diabetes Perforation of sigmoid colon due to diverticulitis High blood cholesterol Stroke Anxiety Surgical History H/O neck surgery History of heart artery stent Family History Other Coronary artery disease Diabetes Social History Household Members: Spouse Housing: Assisted Living Facility Do you presently have visiting nurse or other home services: Yes Unable to assess alcohol history related to: Unknown Alcohol intake: never Comment: heels elevated with pillows Patient Tobacco Use Status: Never used Tobacco Advance Directives Date on File: 07/15/20 service: No Current occupational status: unemployed Physical Exam Vital Signs: BMI result Body Mass Index 31.6 Const Other: Well-nourished well-developed very friendly male awake alert and oriented x3 in no acute distress Extrem Other: Bilateral lower extremity examination shows good capillary refill, no skin lesions noted, normal sensation light touch Left knee examination shows a minimal effusion, minimal crepitus with range of motion, tenderness along his medial joint line, positive oCnor's test, no instability Results Reviewed Results Reviewed: Standing full weight-bearing x-rays of the patient's left knee show mild diffuse joint space narrowing, no acute bony abnormalities MRI of the patient's left knee shows mild diffuse degenerative changes as well as a tear of the medial meniscus Assessment & Plan Assessment & Plan (1) Tear of medial meniscus of left knee: Code(s): S83.242A - Other tear of medial meniscus, current injury, left knee, initial encounter Category: Medical Plan Mr. Figueroa presents with progressively worsening left knee pain and mechanical symptoms due to a medial meniscus tear. I had a lengthy discussion with the patient regarding the treatment options. At this point he has failed continued non operative treatments. The risks and benefits of left knee arthroscopic surgery were discussed at length with the patient. The patient wishes to proceed with surgery. Surgery will most likely involve left knee diagnostic arthroscopy with arthroscopic partial medial meniscectomy. The patient will be scheduled for next available date. He will follow-up as instructed. Feel free to call me at any time should questions regarding his orthopedic management arise. I spent 21 minutes in reviewing the patient's records and imaging studies, seeing the patient and documenting in the medical record. Medications: New tramadol 50 mg PO Q12H PRN 60 tabs 0RF pain Coding Level of Care Code Est Pt Level 3 (93349) Complex EM visit Add On G2211 Diagnoses Tear of medial meniscus of left knee S83.242E
== END 2024-04-16 15:20 | disposition home or self-care (01) ==
PROVIDERS: PCP Physician Assistant Medical; Visit Provider Orthopaedic Surgery
DX: S83.242A Other tear of medial meniscus, current injury, left knee, initial encounter (principal)
CPT/HCPCS: 99213; G2211

== ENCOUNTER → 2024-04-16 14:53 | Outpatient (BNVA) | payer MEDICARE, MEDICAID, SELFPAY | PROVIDERS: PCP Physician Assistant Medical; Visit Provider Orthopaedic Surgery | DX: M25.562 Pain in left knee (principal); S83.242D Other tear of medial meniscus, current injury, left knee, subsequent encounter; X58.XXXD Exposure to other specified factors, subsequent encounter; Z86.73 Personal history of transient ischemic attack (TIA), and cerebral infarction without residual deficits | CPT/HCPCS: 99212 ==

== ENCOUNTER 2024-07-26 06:10 | Day surgery (SDC) | payer MEDICARE, MEDICAID, SELFPAY ==
[2024-07-03 08:41] VITALS: BMI 31.6
[2024-07-26] VITALS (11 sets, daily range): BP systolic 125–168; BP diastolic 49–98; PULSE 79–84; RESP 12–20; TEMP 36.1–36.7; O2SAT 92–96; BMI 33.1
[2024-07-26 06:19] LABS: Glucose, Whole Blood 270 mg/dL (60-115)
[2024-07-26] MEDS: Lactated Ringers 1,000 ML 100 ML IVCONT (07:13)
--- NOTE | 2024-07-26 07:21 | P.CONAN_ITS ---
Documented by User: Chetna Mobley NP 07/25/24 09:00 HPI - Anesthesia Eval Consult details Narrative: 68yo M for Left Knee Arthroscopy, partial medial meniscectomy Medically optimized per PCP Follows [facility]. Stable at last office visit 09/2023 CAD s/p PR and stents 2010 Per PCP, 2022 Nuc Stress and ECHO OK Anesthesia Pre-Procedure Meds Is the patient on any of the following meds?: SGLT2 Inhib PMFSH Active Problems Active Problems: All Active Problems Tear of medial meniscus of left knee (Acute) Left knee pain (Acute) Colonic diverticular abscess (Acute) Dysuria (Acute) Past Medical History Medical History (Updated 07/03/24 @ 08:02 by Joan Duong RN) Diabetic foot ulcer Fatty liver Asthma Vertebral artery stenosis QT prolongation PAD (peripheral artery disease) GERD (gastroesophageal reflux disease) Thyroid disease Diverticulitis Diverticulosis Dementia DJD of shoulder Insomnia Sleep apnea Depression Myocardial infarction Allergic rhinitis Cervicalgia 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 hyperplasia Hypertension COVID-19 Fall Hyperlipidemia Intracranial atherosclerosis BPH (benign prostatic hyperplasia) Coronary artery disease Diabetes Perforation of sigmoid colon due to diverticulitis High blood cholesterol Stroke Anxiety Family History Family History Other Coronary artery disease Diabetes Surgical History Surgical History (Updated 07/03/24 @ 08:02 by Joan Duong RN) S/P peripheral artery angioplasty H/O colonoscopy Hx of tonsillectomy History of shoulder surgery Hx of cervical spine surgery History of esophagogastroduodenoscopy (EGD) H/O neck surgery History of heart artery stent Social History Social History Household Members: Spouse Housing: Assisted Living Facility Do you presently have visiting nurse or other home services: Yes Unable to assess alcohol history related to: Unknown Alcohol intake: never Comment: heels elevated with pillows Patient Tobacco Use Status: Never used Tobacco Use of substances other than those prescribed or required for medical reasons: No Are you DNR?: No Advance Directives: No Advance Directives Information Provided: Yes Advance Directives Date on File: 07/15/20 service: No Current occupational status: unemployed Meds Allergies Allergy/AdvReac Type Severity Reaction Status Date / Time lisinopril [LISINOPRIL] Allergy Unknown Cough Verified 07/26/24 06:40 pregabalin [From LYRICA] Allergy Unknown Weakness Verified 07/26/24 06:40 divalproex sodium Allergy Unconscious Verified 07/26/24 06:40 [From Depakote] Active Medications: Current Medications Cefazolin Sodium/Dextrose (Ancef) 2 gm in 50 mls @ 100 mls/hr IV PREOP ONE Stop: 07/26/24 06:08 Home Medications ?Medication ?Instructions ?Recorded ?Confirmed ?Last Taken ?Type albuterol sulfate 90 mcg/actuation 2 puff inhalation BID PRN Wheezing 06/19/20 07/26/24 01/24/22 History aerosol inhaler atorvastatin 80 mg tablet 80 mg PO BEDTIME 06/19/20 07/26/24 02/07/24 19:00 History clopidogrel 75 mg tablet 75 mg PO DAILY 06/19/20 07/26/24 02/08/24 07:00 History duloxetine 60 mg capsule,delayed 60 mg PO DAILY 06/19/20 07/26/24 02/08/24 07:00 History release lamotrigine 200 mg tablet 100 mg PO BID 06/19/20 07/26/24 02/08/24 07:00 History amlodipine 10 mg tablet 1 tab PO DAILY 01/25/22 07/26/24 02/08/24 07:00 History aspirin 81 mg tablet,delayed 1 tab PO DAILY 01/25/22 07/26/24 02/08/24 07:00 History release fluticasone propionate 50 2 spray intranasal DAILY PRN 01/25/22 07/26/24 01/24/22 History mcg/actuation nasal Allergies spray,suspension insulin glargine 100 unit/mL (3 50 unit subcut BEDTIME 01/25/22 07/26/24 02/07/24 19:00 History mL) subcutaneous pen (Lantus Solostar U-100 Insulin) insulin lispro 100 unit/mL 15 unit subcut TIDAC 01/25/22 07/26/24 02/08/24 07:00 History subcutaneous solution (Humalog U-100 Insulin) mirtazapine 15 mg disintegrating 1 tab PO BEDTIME 01/25/22 07/26/24 02/07/24 19:00 History tablet omeprazole 20 mg capsule,delayed 1 cap PO DAILY@0630 07/07/0707/26/24 02/08/24 07:00 History release promethazine 25 mg tablet 1 tab PO Q8H PRN nausea 01/25/22 07/26/24 Unknown History cholecalciferol (vitamin D3) 50 50 mcg PO DAILY 06/22/23 07/26/24 02/08/24 07:00 History mcg (2,000 unit) capsule duloxetine 30 mg capsule,delayed 30 mg PO DAILY 06/22/23 07/26/24 02/08/24 07:00 History release empagliflozin 10 mg tablet 10 mg PO DAILY 06/22/23 07/26/24 02/08/24 07:00 History (Jardiance) finasteride 5 mg tablet (Proscar) 5 mg PO DAILY 06/22/23 07/26/24 02/08/24 07:00 History metoprolol tartrate 100 mg tablet 50 mg PO BID 06/22/23 07/26/24 02/08/24 07:00 History clonazepam 1 mg tablet 0.5 mg PO TID 01/22/24 07/26/24 02/08/24 07:00 History alprazolam 0.25 mg tablet 0.25 mg PO DAILY PRN anxiety attack 07/03/24 07/26/24 Unknown History diclofenac sodium 1 % topical gel 4 g topical QID PRN joint pain 07/03/24 07/26/24 Unknown History gabapentin 600 mg tablet 600 mg PO TID 07/03/24 07/26/24 Unknown History naproxen 500 mg tablet 500 mg PO BID PRN Pain 07/03/24 07/26/24 Unknown History nitroglycerin 0.4 mg sublingual 0.4 mg sublingual Q5M PRN Chest 07/03/24 07/26/24 Unknown History tablet Pain prazosin 1 mg capsule 1 mg PO BEDTIME 07/03/24 07/26/24 Unknown History tramadol 50 mg tablet 50 mg PO Q6-8H PRN pain 07/03/24 07/26/24 Unknown History Exam Height,Weight and Vital Signs: Height 5 ft 6 in Weight 88.904 kg Pertinent Lab Results Pertinent Lab Results: Laboratory Tests 02/08/24 13:30 WBC 9.4 Hgb 15.4 Hct 47.9 Plt Count 213 Sodium 141 Potassium 4.1 Chloride 100 Carbon Dioxide 32 H BUN 11 Creatinine 1.01 Narrative Narrative: EKG 04/2024 per PCP note NSR Nuc Stress 2022 per PCP note Small, mild, infarct of the inferior wall ECHO 2022 per PCP note Mild, conc LVH with likely nml LV sys function RWMA could not be commented upon due to poor endocardial definition and the patient refused contract enchancement EF was likely nml No evidence of significant valve disease Cardiac MRI 2021 IMPRESSION: There is myocardial thinning with a 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 There is subendocardial enhancement in the basal to mid lateral wall involving less than 50% myocardial thickness, in keeping with subendocardial infarct. Thickened basal/mid septum measuring up to 1.7 cm. No specific sign to suggest nonischemic cardiomyopathy. Normal size left ventricle. LVEF 55%. Normal size right ventricle with preserved wall motion. RVEF 50%. Assessment and Plan Assessment Anesthesia Assessment: Chart Reviewed Documented by User: Geri Dave DO 07/26/24 07:21 HPI - Anesthesia Eval Anesthesia Pre-Procedure Meds Is the patient on any of the following meds?: SGLT2 Inhib PMFSH Past Medical History Medical History (Updated 07/03/24 @ 08:02 by Joan Duong RN) Diabetic foot ulcer Fatty liver Asthma Vertebral artery stenosis QT prolongation PAD (peripheral artery disease) GERD (gastroesophageal reflux disease) Thyroid disease Diverticulitis Diverticulosis Dementia DJD of shoulder Insomnia Sleep apnea Depression Myocardial infarction Allergic rhinitis Cervicalgia 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 hyperplasia Hypertension COVID-19 Fall Hyperlipidemia Intracranial atherosclerosis BPH (benign prostatic hyperplasia) Coronary artery disease Diabetes Perforation of sigmoid colon due to diverticulitis High blood cholesterol Stroke Anxiety Family History Family History Other Coronary artery disease Diabetes Family history of problems with anesthesia: No Surgical History Surgical History (Updated 07/03/24 @ 08:02 by Joan Duong RN) S/P peripheral artery angioplasty H/O colonoscopy Hx of tonsillectomy History of shoulder surgery Hx of cervical spine surgery History of esophagogastroduodenoscopy (EGD) H/O neck surgery History of heart artery stent History of Problems with Anesthesia: No Social History Social History Household Members: Spouse Housing: Assisted Living Facility Do you presently have visiting nurse or other home services: Yes Unable to assess alcohol history related to: Unknown Alcohol intake: never Comment: heels elevated with pillows Patient Tobacco Use Status: Never used Tobacco Use of substances other than those prescribed or required for medical reasons: No Are you DNR?: No Advance Directives: No Advance Directives Information Provided: Yes Advance Directives Date on File: 07/15/20 service: No Current occupational status: unemployed Meds Allergies Allergy/AdvReac Type Severity Reaction Status Date / Time lisinopril [LISINOPRIL] Allergy Unknown Cough Verified 07/26/24 06:40 pregabalin [From LYRICA] Allergy Unknown Weakness Verified 07/26/24 06:40 divalproex sodium Allergy Unconscious Verified 07/26/24 06:40 [From Depakote] Home Medications ?Medication ?Instructions ?Recorded ?Confirmed ?Last Taken ?Type albuterol sulfate 90 mcg/actuation 2 puff inhalation BID PRN Wheezing 06/19/20 07/26/24 01/24/22 History aerosol inhaler atorvastatin 80 mg tablet 80 mg PO BEDTIME 06/19/20 07/26/24 02/07/24 19:00 History clopidogrel 75 mg tablet 75 mg PO DAILY 06/19/20 07/26/24 02/08/24 07:00 History duloxetine 60 mg capsule,delayed 60 mg PO DAILY 06/19/20 07/26/24 02/08/24 07:00 History release lamotrigine 200 mg tablet 100 mg PO BID 06/19/20 07/26/24 02/08/24 07:00 History amlodipine 10 mg tablet 1 tab PO DAILY 01/25/22 07/26/24 02/08/24 07:00 History aspirin 81 mg tablet,delayed 1 tab PO DAILY 01/25/22 07/26/24 02/08/24 07:00 History release fluticasone propionate 50 2 spray intranasal DAILY PRN 01/25/22 07/26/24 01/24/22 History mcg/actuation nasal Allergies spray,suspension insulin glargine 100 unit/mL (3 50 unit subcut BEDTIME 01/25/22 07/26/24 02/07/24 19:00 History mL) subcutaneous pen (Lantus Solostar U-100 Insulin) insulin lispro 100 unit/mL 15 unit subcut TIDAC 01/25/22 07/26/24 02/08/24 07:00 History subcutaneous solution (Humalog U-100 Insulin) mirtazapine 15 mg disintegrating 1 tab PO BEDTIME 01/25/22 07/26/24 02/07/24 19:00 History tablet omeprazole 20 mg capsule,delayed 1 cap PO DAILY@0630 01/25/22 07/26/24 02/08/24 07:00 History release promethazine 25 mg tablet 1 tab PO Q8H PRN nausea 01/25/22 07/26/24 Unknown Hist ory cholecalciferol (vitamin D3) 50 50 mcg PO DAILY 06/22/23 07/26/24 02/08/24 07:00 History mcg (2,000 unit) capsule duloxetine 30 mg capsule,delayed 30 mg PO DAILY 06/22/23 07/26/24 02/08/24 07:00 History release empagliflozin 10 mg tablet 10 mg PO DAILY 06/22/23 07/26/24 02/08/24 07:00 History (Jardiance) finasteride 5 mg tablet (Proscar) 5 mg PO DAILY 06/22/23 07/26/24 02/08/24 07:00 History metoprolol tartrate 100 mg tablet 50 mg PO BID 06/22/23 07/26/24 02/08/24 07:00 History clonazepam 1 mg tablet 0.5 mg PO TID 01/22/24 07/26/24 02/08/24 07:00 History alprazolam 0.25 mg tablet 0.25 mg PO DAILY PRN anxiety attack 07/03/24 07/26/24 Unknown History diclofenac sodium 1 % topical gel 4 g topical QID PRN joint pain 07/03/24 07/26/24 Unknown History gabapentin 600 mg tablet 600 mg PO TID 07/03/24 07/26/24 Unknown History naproxen 500 mg tablet 500 mg PO BID PRN Pain 07/03/24 07/26/24 Unknown History nitroglycerin 0.4 mg sublingual 0.4 mg sublingual Q5M PRN Chest 07/03/24 07/26/24 Unknown History tablet Pain prazosin 1 mg capsule 1 mg PO BEDTIME 07/03/24 07/26/24 Unknown History tramadol 50 mg tablet 50 mg PO Q6-8H PRN pain 07/03/24 07/26/24 Unknown History Exam Exam Date and Time: 07/26/24 0719 Height,Weight and Vital Signs: Height 5 ft 6 in Weight 88.904 kg Vital Signs Temperature 98.0 F 07/26/24 06:37 Pulse Rate 81 07/26/24 06:37 Respiratory Rate 18 07/26/24 06:37 Blood Pressure 168/98 H 07/26/24 06:37 Pulse Oximetry 95 07/26/24 06:37 Oxygen Delivery Method Room Air 07/26/24 06:37 Temperature 98.0 F 07/26/24 06:37 Pulse Rate 81 07/26/24 06:37 Respiratory Rate 18 07/26/24 06:37 Blood Pressure 168/98 H 07/26/24 06:37 Pulse Oximetry 95 07/26/24 06:37 Oxygen Delivery Method Room Air 07/26/24 06:37 Airway Mallampati Class: II TM Dist: >3cm Neck ROM: Full Loose/Missing/Broken Teeth: Yes (multiple broken teeth) Heart: S1S2 Lungs: CTAB Assessment and Plan Assessment Anesthesia Assessment: Anesthesia Plan Discussed and Chart Reviewed Final Anesthetic Review Family History of Problems with Anesthesia: No History of Problems with Anesthesia: No NPO: Yes ASA Class: III Final Preanesthetic Review: No Changes in Pt Med Stat, Meds/Allgs Chart Reviewed, Consent Obtained/Reviewed and Anes Risks/Benef Reviewed Patient Risk: Low Procedure Risk: Low Anesthetic Plan Anesthetic Plan: MAC: and Agree w/ Assess. and Plan Disposition: Standard PACU
--- NOTE | 2024-07-26 08:40 | PM.OP ---
Brief Operative Note Date of Service: 07/26/24 Pre-op diagnosis: Left knee medial meniscus tear, left knee degenerative joint disease Post-op diagnosis: same Procedure: Left knee diagnostic arthroscopy with left knee arthroscopic partial medial meniscectomy, left knee arthroscopic chondroplasty of the medial femoral condyle Implants: none Surgeon: Jorje Dimas MD Anesthesia: GLMA Was an Interior Horticulturist used for this Procedure?: No Estimated blood loss (mL): 10 Pathology: none sent Condition: stable Disposition: PACU
--- NOTE | 2024-07-26 08:41 | W.PM.OPN ---
Operative Note Operative Note Date of Service: 07/26/24 Narrative: After the patient was identified as Dragan Figueroa and his left knee was initialed by myself they were brought to the operating room where general anesthesia was induced by the anesthesiologist in routine fashion. The patient was given 2 g of IV Ancef preoperatively for infection prophylaxis. The patient's left lower extremity was prepped and draped in sterile fashion. A formal time-out was completed. Marcaine was injected into the planned incision sites as well as the patient's left knee joint. A #11 scalpel blade was used to make an anterolateral portal 1 cm proximal to the joint line and 1 cm lateral to the patellar tendon. Blunt trocar technique was used to enter the suprapatellar pouch with the knee in extension. Diagnostic arthroscopy showed multiple bands of thickened plica which would be excised at the end of the procedure. There were no loose bodies or abnormalities found in either the medial or lateral gutters. The articular surface of the patella showed diffuse grades 1 and 2 degenerative changes. The trochlear groove articular surface showed diffuse grades 1 and 2 degenerative changes. The patient's knee was flexed to 45 degrees and a valgus force was placed upon it. The medial compartment was entered. An anteromedial portal was made 1 cm proximal to the joint line and 1 cm medial to the patellar tendon. Probing of the medial meniscus showed a radial tear of the posterior horn. A partial medial meniscectomy was performed using the arthroscopic shaver. Following the partial meniscectomy the remainder of the meniscus tissue was stable. There were diffuse grades 2 and 3 degenerative changes of the medial femoral condyle as well as grades 1 and 2 degenerative changes of the medial tibial plateau. The articular surface of the medial femoral condyle was then made smooth using the arthroscopic shaver. The articular surface of the medial tibial plateau was already smooth so no chondroplasty was indicated. The patient's knee was placed into a neutral position. There was no injury to the anterior cruciate ligament. The patient's knee was then placed in the figure of 4 position and the lateral compartment was entered. There was no evidence of lateral meniscus tearing. There were minimal degenerative changes of the lateral femoral condyle and lateral tibial plateau. The patient's knee was once again brought into extension and the suprapatellar pouch was entered. The arthroscopic shaver and the ArthroCare Wand were used to excise the thickened bands of plica. The knee joint was irrigated and then drained. All arthroscopic instruments were removed. The 2 portals were closed with 3-0 nylon interrupted suture. The knee joint was injected with Marcaine. Dry sterile dressing and Kush bandages were placed over the patient's knee. The patient was awoken and extubated in the operating room. The patient was transferred to the recovery room in stable condition.
[2024-07-26] MEDS: fentaNYL citrate/PF 100 MCG/2 ML VIAL 50 MCG IVPUSH ×2 (09:20→09:25)
[2024-07-26] MEDS: cefTRIAXone sodium 1 GM VIAL IVPUSH (09:23)
== END 2024-07-26 10:45 | disposition home or self-care (01) ==
PROVIDERS: PCP Physician Assistant Medical; Visit Provider Orthopaedic Surgery
PROC: (CPT 29870; principal; 2024-07-26 07:30)
DX: S83.242A Other tear of medial meniscus, current injury, left knee, initial encounter (principal); M17.12 Unilateral primary osteoarthritis, left knee; M67.52 Plica syndrome, left knee; M23.52 Chronic instability of knee, left knee; Z91.81 History of falling; X50.1XXA Overexertion from prolonged static or awkward postures, initial encounter; Y93.9 Activity, unspecified; Y92.9 Unspecified place or not applicable; Y99.9 Unspecified external cause status; I10 Essential (primary) hypertension; E78.5 Hyperlipidemia, unspecified; E11.9 Type 2 diabetes mellitus without complications; I25.10 Atherosclerotic heart disease of native coronary artery without angina pectoris; Z95.5 Presence of coronary angioplasty implant and graft; Z86.73 Personal history of transient ischemic attack (TIA), and cerebral infarction without residual deficits; F41.9 Anxiety disorder, unspecified; Z79.51 Long term (current) use of inhaled steroids; Z79.82 Long term (current) use of aspirin; Z79.4 Long term (current) use of insulin; Z79.84 Long term (current) use of oral hypoglycemic drugs; Z79.899 Other long term (current) drug therapy; Z88.8 Allergy status to other drugs, medicaments and biological substances; Z98.890 Other specified postprocedural states; Z56.0 Unemployment, unspecified
CPT/HCPCS: 29881; 82947; J0131; J0171; J0690; J0696; J1100; J2003; J2250; J2405; J2704; J2795; J3010

== ENCOUNTER → 2024-07-26 06:10 | Outpatient (BNV) | payer MEDICARE, MEDICAID, SELFPAY | PROVIDERS: PCP Physician Assistant Medical; Visit Provider Orthopaedic Surgery | DX: S83.242A Other tear of medial meniscus, current injury, left knee, initial encounter (principal) | CPT/HCPCS: 29881 ==

== ENCOUNTER 2024-08-08 10:17 | Outpatient (AMB) | payer MEDICARE, MEDICAID, SELFPAY ==
--- NOTE | 2024-08-08 10:19 | MHC.OFFVIS ---
Intake Visit Reasons: Bilateral knee pains, Right knee pain and giving way Intake Note: Dragan is a 69 year old male who presents with complaints of progressively worsening right knee pain and giving way. The patient did undergo left knee arthroscopic surgery on 07/26/2024. He reports mild intermittent discomfort in his left knee. He denies any fevers or chills. Describes his right knee pain as sharp and severe in nature. Most of the pain is along the medial aspect of his right knee. States that his right knee symptoms have gotten worse over the last few years in spite of continued non operative treatments. He has failed the last 6 weeks of conservative treatment which has included Tylenol, anti-inflammatory medicines, oxycodone and physical therapy exercises. At this point the patient's right knee pain and mechanical symptoms are interfering with his activities of daily living and his ability to sleep well through the night. Allergies lisinopril [LISINOPRIL] Allergy (Unknown, Verified 08/08/24 10:19) Cough pregabalin [From LYRICA] Allergy (Unknown, Verified 08/08/24 10:19) Weakness divalproex sodium [From Depakote] Allergy (Verified 08/08/24 10:19) Unconscious PFSH Medical History (Updated 08/08/24 @ 10:32 by Jroje Dimas MD) Diabetic foot ulcer Fatty liver Asthma Vertebral artery stenosis QT prolongation PAD (peripheral artery disease) GERD (gastroesophageal reflux disease) Thyroid disease Diverticulitis Diverticulosis Dementia DJD of shoulder Insomnia Sleep apnea Depression Myocardial infarction Allergic rhinitis Cervicalgia 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 hyperplasia Hypertension COVID-19 Fall Hyperlipidemia Intracranial atherosclerosis BPH (benign prostatic hyperplasia) Coronary artery disease Diabetes Perforation of sigmoid colon due to diverticulitis High blood cholesterol Stroke Anxiety Surgical History (Updated 07/03/24 @ 08:02 by Joan Duong RN) S/P peripheral artery angioplasty H/O colonoscopy Hx of tonsillectomy History of shoulder surgery Hx of cervical spine surgery History of esophagogastroduodenoscopy (EGD) H/O neck surgery History of heart artery stent Family History Other Coronary artery disease Diabetes Social History Household Members: Spouse Housing: Assisted Living Facility Do you presently have visiting nurse or other home services: Yes Unable to assess alcohol history related to: Unknown Alcohol intake: never Comment: heels elevated with pillows Patient Tobacco Use Status: Never used Tobacco Advance Directives Date on File: 07/15/20 service: No Current occupational status: unemployed Physical Exam Const Other: Well-nourished well-developed very friendly male awake alert and oriented x3 in no acute distress Extrem Other: Bilateral lower extremity examination shows good capillary refill, no skin lesions noted, normal sensation light touch Right knee examination shows a minimal effusion, mild crepitus with range of motion, tenderness along his medial joint line, positive Conor's test, no instability Left knee examination shows that the surgical incisions are healing well, no erythema, minimal crepitus with range of motion, minimal discomfort with range of motion Assessment & Plan Assessment & Plan (1) Tear of medial meniscus of right knee: Code(s): S83.241A - Other tear of medial meniscus, current injury, right knee, initial encounter Category: Medical (2) Left knee pain: Code(s): M25.562 - Pain in left knee Category: Medical Plan Mr. Figueroa is doing well after undergoing left knee arthroscopic surgery on 07/26/2024. His sutures were removed and Steri-Strips placed over his incisions. He does have progressively worsening right knee pain and mechanical symptoms most likely due to a medial meniscus tear. Thus, I will send the patient for an MRI of his right knee for further evaluation. I will see him back after the MRI is completed to discuss the findings and treatment options. Feel free to call me at any time should questions regarding his orthopedic management arise. I spent 20 minutes in reviewing the patient's records and imaging studies, seeing the patient and documenting in the medical record. Orders: Orders MR knee RT wo con Today S83.241A - Other tear of medial meniscus, current injury, right knee, initial encounter Coding Level of Care Code Est Pt Level 3 (54500) Complex EM visit Add On G2211 Diagnoses Tear of medial meniscus of right knee S83.241A Left knee pain M25.562
== END 2024-08-08 10:31 | disposition home or self-care (01) ==
PROVIDERS: PCP Physician Assistant Medical; Visit Provider Orthopaedic Surgery
DX: S83.241A Other tear of medial meniscus, current injury, right knee, initial encounter (principal); M25.562 Pain in left knee
CPT/HCPCS: 99213; G2211

== ENCOUNTER → 2024-08-08 10:17 | Outpatient (BNVA) | payer MEDICARE, MEDICAID, SELFPAY | PROVIDERS: PCP Physician Assistant Medical; Visit Provider Orthopaedic Surgery | DX: S83.241A Other tear of medial meniscus, current injury, right knee, initial encounter (principal); M25.562 Pain in left knee | CPT/HCPCS: 99212 ==

== ENCOUNTER 2024-10-08 11:59 | Outpatient (REF) | payer MEDICARE, MEDICAID, SELFPAY ==
--- NOTE | ~2024-10-08 | XR_ITS ---
EXAMINATION: XR KNEE, LEFT CLINICAL INFORMATION: M25.562 - Pain in left knee COMPARISON: January 22, 2024. TECHNIQUE: Three views of the left knee. FINDINGS: Joint space narrowing involving the medial compartment. Sclerosis and the articular surface of the medial tibial plateau and to a lesser extent medial femoral condyle. Marginal osteophyte formation and medial femoral condyle and medial tibial plateau posterior superior and inferior patella. Joint space narrowing involving the patellofemoral joint. Chondrocalcinosis, lateral compartment. No suprapatellar bursa joint effusion. Vascular calcifications. XR/XR knee LT 3V IMPRESSION: Tricompartmental osteoarthrosis involving mostly the medial compartment. Worsened since prior exam. Probable CPPD. Peripheral arterial disease. Electronically signed by: Derian Johnson MD 10/09/2024 01:00 PM EDT
== END 2024-10-08 12:00 | disposition home or self-care (01) ==
LOC: HO.HOSX 11:59
PROVIDERS: PCP Physician Assistant Medical; Visit Provider Orthopaedic Surgery
DX: M25.561 Pain in right knee (principal); M17.12 Unilateral primary osteoarthritis, left knee
CPT/HCPCS: 73562; 99212

== ENCOUNTER 2024-10-08 11:59 | Outpatient (AMB) | payer MEDICARE, MEDICAID, SELFPAY ==
[2024-10-08 12:31] VITALS: BMI 33.1
--- NOTE | 2024-10-08 12:31 | MHC.OFFVIS ---
Vital Signs 10/08/24 12:31 Height 5 ft 6 in Weight 205 lb BMI 33.1 Intake Visit Reasons: Bilateral knee pain Intake Note: Dragan is a 69 year old male who presents today post-operatively after undergoing left knee arthroscopic surgery on 07/26/24. Patient reports he had a fall about 6 days ago and since has been having discomfort. Patient states Tramadol and Ibuprofen are giving him only mild relief. The patient denies any locking or giving way in his left knee. He states that his right knee will give out several times per day. He was scheduled to undergo a right knee MRI but canceled the MRI because his left knee pain had increased. He was doing formal physical therapy which seemed to aggravate his pain. Allergies lisinopril [LISINOPRIL] Allergy (Unknown, Verified 10/08/24 12:34) Cough pregabalin [From LYRICA] Allergy (Unknown, Verified 10/08/24 12:34) Weakness divalproex sodium [From Depakote] Allergy (Verified 10/08/24 12:34) Unconscious Medication List - Last Reconciled 10/08/24 by Jorje Dimas MD albuterol sulfate 90 mcg/actuation 2 puffs inhalation BID PRN alprazolam 0.25 mg PO DAILY PRN amlodipine 1 tab PO DAILY aspirin 1 tab PO DAILY atorvastatin 80 mg PO BEDTIME cefuroxime axetil 250 mg PO BID 4 days cholecalciferol (vitamin D3) 50 mcg PO DAILY clonazepam 0.5 mg PO TID clopidogrel 75 mg PO DAILY diclofenac sodium 1% 4 grams topical QID PRN duloxetine 60 mg PO DAILY duloxetine 30 mg PO DAILY empagliflozin (Jardiance) 10 mg PO DAILY finasteride (Proscar) 5 mg PO DAILY fluticasone propionate 50 mcg/actuation 2 sprays intranasal DAILY PRN gabapentin 600 mg PO TID insulin glargine (Lantus Solostar U-100 Insulin) 50 units subcut BEDTIME insulin lispro (Humalog U-100 Insulin) 15 units subcut TIDAC lamotrigine 100 mg PO BID metoprolol tartrate 50 mg PO BID mirtazapine 1 tab PO BEDTIME naproxen 500 mg PO BID PRN nitroglycerin 0.4 mg sublingual Q5M PRN omeprazole 1 cap PO DAILY@0630 oxycodone 5 mg PO Q24H PRN prazosin 1 mg PO BEDTIME promethazine 1 tab PO Q8H PRN tamsulosin 0.8 mg (2 x 0.4 mg) PO BEDTIME tramadol 50 mg PO Q6-8H PRN PFSH Medical History (Updated 08/08/24 @ 10:32 by Jorje Dimas MD) Diabetic foot ulcer Fatty liver Asthma Vertebral artery stenosis QT prolongation PAD (peripheral artery disease) GERD (gastroesophageal reflux disease) Thyroid disease Diverticulitis Diverticulosis Dementia DJD of shoulder Insomnia Sleep apnea Depression Myocardial infarction Allergic rhinitis Cervicalgia 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 hyperplasia Hypertension COVID-19 Fall Hyperlipidemia Intracranial atherosclerosis BPH (benign prostatic hyperplasia) Coronary artery disease Diabetes Perforation of sigmoid colon due to diverticulitis High blood cholesterol Stroke Anxiety Surgical History (Updated 07/03/24 @ 08:02 by Joan Duong RN) S/P peripheral artery angioplasty H/O colonoscopy Hx of tonsillectomy History of shoulder surgery Hx of cervical spine surgery History of esophagogastroduodenoscopy (EGD) H/O neck surgery History of heart artery stent Family History Other Coronary artery disease Diabetes Social History Household Members: Spouse Housing: Assisted Living Facility Do you presently have visiting nurse or other home services: Yes Unable to assess alcohol history related to: Unknown Alcohol intake: never Comment: heels elevated with pillows Patient Tobacco Use Status: Never used Tobacco Advance Directives Date on File: 07/15/20 service: No Current occupational status: unemployed Physical Exam Vital Signs: BMI result Body Mass Index 33.1 Const Other: Well-nourished well-developed very friendly male awake alert and oriented x3 in no acute distress Extrem Other: Right knee examination shows a minimal effusion, mild crepitus with range of motion, tenderness along his medial joint line, positive Conor's test, no instability Left knee examination shows that the surgical incisions are well healed, no erythema, mild crepitus with range of motion, no instability Results Reviewed Results Reviewed: Standing full weight-bearing x-rays of the patient's left knee taken today show moderate to severe joint space narrowing most significant in the medial compartment, no acute bony abnormalities Assessment & Plan Assessment & Plan (1) Left knee pain: Code(s): M25.562 - Pain in left knee Category: Medical (2) Pain in both knees: Code(s): M25.561 - Pain in right knee; M25.562 - Pain in left knee Plan Mr. Figueroa presents with right knee pain and mechanical symptoms most likely due to a tear of his medial meniscus. Thus, I did recommend that he get an MRI of his right knee. He will contact the MRI department when he chooses to do so to reschedule his MRI. Also has left knee pain due to degenerative joint disease. I will arrange for him to have a re-evaluation in the pain management department for a possible nerve stimulation procedure. He wishes to hold off on total knee replacement surgery if at all possible. He will contact me prior to his follow-up appointment in 2-3 months should any questions or concerns arise. I did give him a prescription for oxycodone to help with his pain in the meantime. Feel free to call me at any time should questions regarding his orthopedic management arise. I spent 21 minutes in reviewing the patient's records and imaging studies, seeing the patient and documenting in the medical record. Orders: Orders XR knee LT 3V Today M25.562 - Pain in left knee Referrals Pain Management Referral M25.562 - Pain in left knee Medications: Changed From oxycodone Partial Fill upon patient request. 5 mg PO Q24H PRN 14 tabs 0RF pain To oxycodone Partial Fill upon patient request. 5 mg PO Q12H PRN 30 tabs 0RF pain Coding Level of Care Code Est Pt Level 3 (49925) Complex EM visit Add On G2211 Diagnoses Left knee pain M25.562 Pain in both knees M25.561; M25.562
== END 2024-10-08 12:57 | disposition home or self-care (01) ==
PROVIDERS: PCP Physician Assistant Medical; Visit Provider Orthopaedic Surgery
DX: M25.561 Pain in right knee (principal); S83.242D Other tear of medial meniscus, current injury, left knee, subsequent encounter
CPT/HCPCS: 99213; G2211

== ENCOUNTER → 2024-10-08 12:04 | Outpatient (BNV) | payer MEDICARE, MEDICAID, SELFPAY | PROVIDERS: PCP Physician Assistant Medical; Visit Provider Radiology Diagnostic Radiology | DX: M17.12 Unilateral primary osteoarthritis, left knee (principal) | CPT/HCPCS: 73562 ==

== ENCOUNTER 2024-12-04 13:20 | Outpatient (AMB) | payer MEDICARE, MEDICAID, SELFPAY ==
[2024-12-04 13:21] VITALS: BMI 33.1
--- NOTE | 2024-12-04 13:21 | MHC.OFFVIS ---
Vital Signs 12/04/24 13:21 Height 5 ft 6 in Weight 205 lb BMI 33.1 Intake Visit Reasons: OV LT knee 07/26/24 , Bilateral knee pains Intake Note: Dragan is a 69 year old male who presents with complaints of progressively worsening bilateral knee pains. The patient describes his pains as sharp in nature. He has failed the last 3 months of conservative treatment which has included home exercise program, physical therapy exercises, Tylenol, muscle relaxants and anti-inflammatory medicines. The patient did undergo left knee arthroscopic surgery on 07/26/2024. He got minimal relief from that procedure. He denies any locking or giving way. He has had cortisone injections in the past which gave him minimal relief. At this point his knee pains are interfering with his activities of daily living and his ability to sleep well through the night. Allergies lisinopril [LISINOPRIL] Allergy (Unknown, Verified 12/04/24 13:22) Cough pregabalin [From LYRICA] Allergy (Unknown, Verified 12/04/24 13:22) Weakness divalproex sodium [From Depakote] Allergy (Verified 12/04/24 13:22) Unconscious Medication List - Last Reconciled 12/04/24 by Jorje Dimas MD albuterol sulfate 90 mcg/actuation 2 puffs inhalation BID PRN alprazolam 0.25 mg PO DAILY PRN amlodipine 1 tab PO DAILY aspirin 1 tab PO DAILY atorvastatin 80 mg PO BEDTIME cefuroxime axetil 250 mg PO BID 4 days cholecalciferol (vitamin D3) 50 mcg PO DAILY clonazepam 0.5 mg PO TID clopidogrel 75 mg PO DAILY diclofenac sodium 1% 4 grams topical QID PRN duloxetine 60 mg PO DAILY duloxetine 30 mg PO DAILY empagliflozin (Jardiance) 10 mg PO DAILY finasteride (Proscar) 5 mg PO DAILY fluticasone propionate 50 mcg/actuation 2 sprays intranasal DAILY PRN gabapentin 600 mg PO TID insulin glargine (Lantus Solostar U-100 Insulin) 50 units subcut BEDTIME insulin lispro (Humalog U-100 Insulin) 15 units subcut TIDAC lamotrigine 100 mg PO BID metoprolol tartrate 50 mg PO BID mirtazapine 1 tab PO BEDTIME naproxen 500 mg PO BID PRN nitroglycerin 0.4 mg sublingual Q5M PRN omeprazole 1 cap PO DAILY@0630 oxycodone 5 mg PO Q12H PRN prazosin 1 mg PO BEDTIME promethazine 1 tab PO Q8H PRN tamsulosin 0.8 mg (2 x 0.4 mg) PO BEDTIME tramadol 50 mg PO Q6-8H PRN PFSH Medical History (Updated 12/04/24 @ 13:37 by Jorje Dimas MD) Diabetic foot ulcer Fatty liver Asthma Vertebral artery stenosis QT prolongation PAD (peripheral artery disease) GERD (gastroesophageal reflux disease) Thyroid disease Diverticulitis Diverticulosis Dementia DJD of shoulder Insomnia Sleep apnea Depression Myocardial infarction Allergic rhinitis Cervicalgia 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 hyperplasia Hypertension COVID-19 Fall Hyperlipidemia Intracranial atherosclerosis BPH (benign prostatic hyperplasia) Coronary artery disease Diabetes Perforation of sigmoid colon due to diverticulitis High blood cholesterol Stroke Anxiety Surgical History (Updated 07/03/24 @ 08:02 by Joan Duong RN) S/P peripheral artery angioplasty H/O colonoscopy Hx of tonsillectomy History of shoulder surgery Hx of cervical spine surgery History of esophagogastroduodenoscopy (EGD) H/O neck surgery History of heart artery stent Family History Other Coronary artery disease Diabetes Social History Household Members: Spouse Housing: Assisted Living Facility Do you presently have visiting nurse or other home services: Yes Unable to assess alcohol history related to: Unknown Alcohol intake: never Comment: heels elevated with pillows Patient Tobacco Use Status: Never used Tobacco Advance Directives Date on File: 07/15/20 service: No Current occupational status: unemployed Physical Exam Vital Signs: BMI result Body Mass Index 33.1 Const Other: Well-nourished well-developed very friendly male awake alert and oriented x3 in no acute distress Extrem Other: Bilateral knee examination shows minimal effusions, palpable crepitus with range of motion, pain with range of motion, no instability Results Reviewed Results Reviewed: X-rays of the patient's bilateral knees taken previously show joint space narrowing, subchondral sclerosis, no acute bony abnormalities Assessment & Plan Assessment & Plan (1) Osteoarthritis of left knee: Code(s): M17.12 - Unilateral primary osteoarthritis, left knee Category: Medical (2) Osteoarthritis of right knee: Code(s): M17.11 - Unilateral primary osteoarthritis, right knee Category: Medical Plan Mr. Figueroa presents with bilateral knee pains due to osteoarthritis. I had a lengthy discussion with the patient regarding the treatment options. The patient wishes to hold off on further surgery if at all possible. I agree with this plan. He has not gotten good relief from cortisone injections in the past. Thus, I will see whether or not his insurance company will cover a viscosupplementation injection, such as Durolane, for both of his knees. I will see him back once the injections are available. Feel free to call me at any time should questions regarding his orthopedic management arise. I spent 20 minutes in reviewing the patient's records and imaging studies, seeing the patient and documenting in the medical record. Coding Level of Care Code Est Pt Level 3 (30604) Complex EM visit Add On G2211 Diagnoses Osteoarthritis of left knee M17.12 Osteoarthritis of right knee M17.11
--- OUTSIDE RECORDS SUMMARY | 2024-12-04 13:55 | XMS_ITS | Encounter Summary ---
Author Organization [facility] Address [address] [place] [address] Care Team Providers Care Mult Au Matic Operator Name Role Phone Name, Luke ROPER Primary Care Provider Unavailabl e Yoel Cervantes MD Primary Care Provider [phone] Yoel Cervantes MD Primary Care Provider [phone] Suman Lu PA-C Primary Care Provider [phone] Chari Dee MD Unavailable [phone] Reason for Visit * Reason Onset Date Comments TEST RESULTS 05/07/2012Jul Encounter Details Date Type Department Care Team Description 05/07/2012 Telephone Adult Medicine [address] [address] Name, MD Luke TEST RESULTS (Jul) Social History Tobacco Use Types Packs/Day Years Used Date Smoking Tobacco: Never Smokeless Tobacco: Never Alcohol Use Standard Drinks/Week Comments Not Asked 0 (1 standard drink = 0.6 oz pur e alcohol) Sex Assigned at Date Recorded Not on file Job Start Date Occupation Industry Not on file Not on file Not on file documented as of this encounter Miscellaneous Notes * Telephone Encounter - Kirsten Zavala - 05/09/2012 4:31 PM EDT Patient's December is calling again to make sure Manolo got the message about test results, can call December back, she is on the verbal release. * Telephone Encounter - Carol Amaya R.N. - 05/07/2012 11:13 AM EDT Pt states he has not discussed the results with manolo and would like a call when he comes in on Monday * Telephone Encounter - Joanne Duque - 05/07/2012 11:07 AM EDT Inform patient: ANY URGENT OR ABNORMAL RESULTS WIILL RESULT IN A CALL BACK TO THE PATIENT HASEEB. Type of test: :mri Date test was performed: 04/30/2012 Where was the test [place] [facility] [place] ordered this test?: Luke Cline MD Is the doctor here today?: YES Can the message wait until the doctor returns?: NO IF PATIENT'S PCP IS NOT IN INSTRUCT PATIENT THAT THEY WILL RECEIVE A CALL BACK WHEN THE PCP IS IN THE OFFICE NEXT. documented in this encounter Plan of Treatment Not on file documented as of this encounter Visit Diagnoses Not on filedocumented in this encounter Care Teams Mult Au Matic Operator Relationship Specialty Start Date End Date Name, MD Luke PCP - General 12/02/08 09/21/14 Yoel Cervantes MD [address] [place] [id number] PCP - General Internal Medicine 06/24/15 12/21/20 Yoel Cervantes MD [address] [place] [id number] PCP - General 09/22/14 06/23/15 Suman Lu PA-C [address] [place] [id number] PCP - General Internal Medicine 12/22/20 Chari Dee MD [address] [place] [address] Specialist Cardiology 07/25/23 documented as of this encounter
--- OUTSIDE RECORDS SUMMARY | 2024-12-04 13:55 | XMS_ITS | Data Portability ---
Author Organization [facility] [employer]: [employer] [facility], Main Office Address [address], [address] [place] [address] Care Team Providers Care Correctional Maintenance Technician Name Role Phone YOLANDA LADD 3RD FLOOR OTHER [phone] LONNIE MOSQUEDA Primary Care Provider Assessment No assessment recorded. Plan of Treatment Reminders Order Date Submit Date Provider Last Modified By Organization Details Last Modified Time Details Appointments None record ed. Lab None record ed. Referral None record ed. Procedures None record ed. Surgeries None record ed. Imaging None record ed. Medication Orders None record ed. Patient TargetsNo targets recorded. Patient InstructionsNo instructions recorded. Reason for Referral None Reported. Problems Name Problem SNOMED Code Status Onset Date Resolution Date Notes Provider Name and Address Organization Details Recorded Time Suicidal thoughts 2738394 Active 2019 Ky Sharp MD [address] [facility] [address] [facility] [address], [address], [place], [address], [facility] [employer] [employer] [facility] 0 14:42:52 History of cerebrovasc ular accident 239985997 Active 2019 Ky Sharp MD [address] [facility] [address] [facility] [address], [address], [place], [address], [facility] [employer] 0 14:43:01 Essential hypertensio n 64978488 Active 2019 Ky Sharp MD [address] [facility] [address] [facility] [address], [address], [place], [address], [facility] [employer] 0 14:43:05 Chronic obstructive pulmonary disease 66347752 Active 2019 Ky Sharp MD [address] [facility] [address] [facility] [address], [address], [place], [address], [facility] [employer] 0 14:43:09 Diabetes mellitus 37637736 Active 2019 Ky Sharp MD [address], [address], [place], [address], [facility] 0 14:44:11 Vascular dementia with behavioral disturbance [id number] 04 Active 2019 Ky Sharp MD [address], [address], [place], [address], [facility] - [facility] 0 14:44:38 Generalized anxiety disorder 49103531 Active 2019 Ky Sharp MD [address], [address], [place], [address], [facility] - [facility] 0 14:44:49 Neurocognit taina disorder 518323619 Active 2019 Ky Sharp MD [address] [facility], [address], [place], [address], [facility] - [facility] 0 14:44:59 Unsteady gait Active 2019 SELENA LOPES NP [address] [facility] [address] [facility], [address], [place], [address], [facility] 0 16:17:09 COVID-19 478825737 Active 2019 Jolie hebert, MD - [facility] 0 12:20:17 Depressive disorder 21502815 Active 2019 Cindy Ireland MD [address] [facility], [address], [place], [address], [facility] 0 17:12:19 Benign prostatic hyperplasia 357313560 Active 2019 SELENA LOPES NP [address] [facility] [address] [facility], [address], [place], [address], [facility] 0 16:38:18 Gastroesoph ageal reflux disease without esophagitis 596447433 Active 2019 SELENA LOPES NP [address], [address], [place], [address], [facility] 0 16:38:46 Hyperlipide ebenezer 89349680 Active 2019 SELENA LOPES NP [address] [facility], [address], [place], [address], [facility] 0 16:40:24 Altered mental status 936033523 Active 2019 SELENA LOPES NP [address] [facility] [address] [facility], [address], [place], [address], [facility] 0 12:21:17 Diverticuli tis of colon with perforation 03916547 Active 2019 Cindy Ireland MD [address] [facility] [address] [facility], [address], [place], [address], [facility] 0 01:04:26 Acute kidney injury 65428231 Active 2019 Cindy Ireland MD [address] [facility] [address] [facility], [address], [place], [address], [facility] 0 01:06:27 Falls 711605320 Active 2020 SELENA LOPES NP [address] [facility] [address] [facility], [address], [place], [address], [facility] 1 10:53:07 Diverticulo sis of sigmoid colon 799535605 Active 2020 SELENA LOPES NP [address] [facility] [address] [facility], [address], [place], [address], [facility] 1 11:02:47 Problem Notes None recorded. Medical Equipment None Reported. Allergies Allergen ID Allergen Name Allergen Category Reaction Reaction Severity Criticality Documentation Date Start Date Code Code System Note Provider Name and Address Organization Details Recorded Time 77402 lisinopri l medicatio n Not available Not available Not available 10/02/2019 67152 RxNorm Jolie hebert, [facility] 0 11:41:06 31462 pregabali n medicatio n Not available Not available Not available 10/02/2019 76258 2 RxNorm Jolie hebert, [facility] 0 11:41:23 Vitals Date Recorded Body height Heart rate Respiratory rate Body temperature Oxygen saturation Oxygen saturation in Arterial blood by Pulse oximetry Inhaled oxygen flow rate Systolic blood pressure Diastolic blood pressure Provider Name and Address Organization Details Last Updated DateTime 0 175.26 cm 78 /min 18 /min 97.4 [degF] 96 % 96 % 2 L/min 126 mm[Hg] 72 mm[Hg] SELENA LOPES NP [address] [facility], [address], [place], [address], [facility] 0 12:20:50 Date Recorded Body height Heart rate Respiratory rate Body temperature Oxygen saturation Oxygen saturation in Arterial blood by Pulse oximetry Systolic blood pressure Diastolic blood pressure Provider Name and Address Organization Details Last Updated DateTime 0 175.26 cm 78 /min 16 /min 97.2 [degF] 94 % 94 % 126 mm[Hg] 72 mm[Hg] SELENA LOPES NP [address] [facility], [address], [place], [address], [facility] 0 09:43:30 Date Recorded Body height Heart rate Respiratory rate Body temperature Oxygen saturation Oxygen saturation in Arterial blood by Pulse oximetry Systolic blood pressure Diastolic blood pressure Provider Name and Address Organization Details Last Updated DateTime 1 175.26 cm 97 /min 18 /min 98.1 [degF] 92 % 92 % 128 mm[Hg] 82 mm[Hg] SELENA LOPES NP [address] [facility], [address], [place], [address], [facility] 1 15:24:00 Date Recorded Body height Heart rate Respiratory rate Body temperature Oxygen saturation Oxygen saturation in Arterial blood by Pulse oximetry Systolic blood pressure Diastolic blood pressure Provider Name and Address Organization Details Last Updated DateTime 1 175.26 cm 70 /min 18 /min 97.7 [degF] 96 % 96 % 140 mm[Hg] 70 mm[Hg] SELENA LOPES NP [address] [facility], [address], [place], [address], [facility] 1 10:52:46 Date Recorded Body height Body mass index (BMI) Body weight Heart rate Respiratory rate Body temperature Oxygen saturation Oxygen saturation in Arterial blood by Pulse oximetry Systolic blood pressure Diastolic blood pressure Provider Name and Address Organization Details Last Updated DateTime 1 175.26 cm 23.8 kg/m2 39630.3 7 g 74 /min 18 /min 97.3 [degF] 95 % 95 % 123 mm[Hg] 78 mm[Hg] Cindy Ireland MD [address] [facility] [address] [facility], [address], [place], [address], [facility] 12:08:45 Date Recorded Body height Provider Name an d Address Organization Details Last Updated DateTime 08/21/2020 175.26 cm Cindy Ireland MD [address] [facility] [address] [facility] [address], [address], [place], [address], [facility] 08/21/2020 17:34:36 Social History Question Answer Notes LastModified by Organizat ion Details LastModified Time Tobacco Smoking Status Never Smoker Not Available [facility] 03:13:22 Do You Have An Advance Directive? Yes Dnr Dni Information not available 07/06/2020 How Much Tobacco Do You Chew? 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 07/07/2020 Information not available 07/12/2020 Sex: Unknown Functional Status Question Answer Note LastModified by Organizat ion Details LastModified Time What is your level of alcohol consumption? None denies drug use Information not available 07/06/2020 Do you or have you ever used smokeless tobacco? Never used smokeless tobacco Information not available 07/12/2020 Do you or have you ever used e-cigarettes or vape? Never used electronic cigarettes Information not available 07/12/2020 Mental Status None recorded. Family History Nothing Reported Notes:N/C Medical History No medical history recorded. Immunizations Vaccine Type Date Status Note Provider Nam e and Address Organization Details Recorded Time Influenza, split virus, quadrivalent, preservative 7 completed Diane Seals null, [facility] 09/25/2020 11:46:32 Influenza, split virus, quadrivalent, preservative 9 completed Diane Seals null, [facility] 09/25/2020 11:46:44 Influenza, split virus, quadrivalent, preservative 6 completed Diane Seals null, [facility] 09/25/2020 11:46:56 Tdap 3 completed Dianematthew hebert, [facility] 09/25/2020 11:47:31 pneumococcal polysaccharide PPV23 4 completed Dianematthew hebert, [facility] 09/25/2020 11:47:51 Past Encounters Encounter ID Performer Location Encounter Start Date Encounter Closed Date Diagnosis/Indication Diagnosis SNOMED-CT Code Diagnosis ICD10 Code Diagnosis Note [id number] NILA Rodrigues [facility] on [address] [place] [id number] 10/02/2019 11:41:40 10/15/2019 10:26:35 Dementia with behavioral disturbance 7166969250 103 F01.51 Depakote ER 250 mg dailyLamic maryann 200 mg BIDSeroque l 25 mg QHSClonaze katiuska 0.5 mg QHS, 0.5 mg BID PRNMonitor for behaviorsP sych to eval Depressive disorder 3548 9007 F33.8 Duloxetine 60 mg dailyMonit or moodPsych eval Essential hypertension 01312956 I10 Norvasc 10 mg dailyMetop rolol 75 mg BIDLosarta n 100 mg dailyMonit or bp and labs Chronic ob structive pulmonary disease 00436143 J41.1 Albuterol inhaler PRNMonitor respirator y status Diabetes mellitus 684848 09 E11.9 Metformin 1000 mg dailyTruli city 1.5 mg QweeklyMon itor blood sugars Gastroesop hageal reflux disease without esophagitis 550292464 K21.9 Ranitidine 150 mg BIDMonitor sxs Coronary arteriosclerosis 43977287 I25.10 ASA 81 mg dailyAtorv astatin 80 mg dailyPlavi x 75 mg dailyMonit or sxs [id number] Ky Sharp MD [facility] on [address] [place] [id number] 10/04/2019 14:35:47 10/15/2019 10:32:16 Suicidal thoughts 8248023 R45.851 see HPImultipl e medication changescon tinue to wean klonopinco nsider starting abilify for behaviorsp sych to eval at facilitycu rrently on lamictal 200 mg biddepakot e 250 mg qdseroquel 25 mg qdtrazadon e 50 mg qhsmonitor for behaviors Vascular d ementia with behavioral disturbance 1235613390 75188 F01.51 baseline dementiase e aboveinvok e HCPmonitor for behaviorsp atient currently here for short term care with expectatio n to return homemonito r need to transition to LTC Unsteady gait 206677912 R26.81 ambulating with walker with assistmoni tor fall risktherap y eval and treat Essential hypertension 67690161 I10 norvasc 10 mg qdlosartan 100 mg qdmetoprol ol 75 mg bidmonitor bp and titrate prn History of cerebrovascular accident 512058034 Z86.73 maintained onplavix 75 mg qdASA 81 mg qdlipitor 80 mg qd Diabetes mellitus 996323 09 E13.69 trulicity 1.5 mg q week scmetformi n 1000 mg bidmonitor blood glucosetit rate prn Chronic ob structive pulmonary disease 19204725 J41.1 carrying dxmonitor [place] [id number] NILA Rodrigues [facility] on [address] [place] [id number] 10/11/2019 11:02:53 10/15/2019 15:39:44 Dementia with behavioral disturbance 9805262640 103 F01.51 Depakote ER 250 mg QHSLamicta l 200 mg BIDSeroque l 25 mg QHSClonaze katiuska 0.5 mg QHS, 0.5 mg BID PRNNo behavioral issuesPsyc h following Depressive disorder 3548 9007 F33.8 Duloxetine 60 mg dailyMonit or moodPsych following Essential hypertension 15109121 I10 Norvasc 10 mg dailyMetop rolol 75 mg BIDLosarta n 100 mg dailyMonit or bp and labs-appea rs well controlled Diabetes mellitus 406475 09 E11.9 Metformin 1000 mg dailyTruli city 1.5 mg QweeklyMon itor blood sugars-maria dolores ear well controlled Coronary arteriosclerosis 94187012 I25.10 ASA 81 mg dailyAtorv astatin 80 mg dailyPlavi x 75 mg dailyMonit or sxs [id number] NILA Rodrigues [facility] on [address] [place] [id number] 10/14/2019 14:57:31 10/18/2019 11:20:19 Dementia with behavioral disturbance 9526152500 103 F01.51 Depakote ER 250 mg dailyLamic maryann 200 mg BIDSeroque l 25 mg QHSClonaze katiuska 0.5 mg QHS, 0.5 mg BID PRNNo behavioral concerns presentlyS upportive care Depressive disorder 3548 9007 F33.8 Duloxetine 60 mg dailyPsych following Essential hypertension 13954868 I10 Norvasc 10 mg dailyMetop rolol 75 mg BIDLosarta n 100 mg dailyBP appears well controlled Diabetes mellitus 681627 09 E11.9 Metformin 1000 mg dailyTruli city 1.5 mg QweeklyBlo od sugars excellent Nausea and vomiting 1693 1999 R11.2 No fever, coughAdd zofran PRNSupport [place] [id number] NILA Rodrigues [facility] on [address] [place] [id number] 10/16/2019 13:00:06 10/18/2019 12:11:30 Cough 97206971 R05 Dry cough, lymphopeni a and weaknessOb tain COVID-19 testing, also will obtain flu swabMonito r Acute kidney injury 1466 9001 N17.8 Start IVF NS 0.9% at 100 cc/hr x 2 LEncourage fluids Repeat BMP 4/3Also obtain urine for UA, C&S Recurrent falls 86751592 2 R29.6 Cont PT OTMonitor for safety [id number] NILA Rodrigues [facility] on [address] [place] [id number] 10/17/2019 13:35:58 10/24/2019 09:11:27 Cough 05067460 R05 Dry cough, lymphopeni a and weaknessFl u swab negativeCO VID testing pending Acute kidney injury 1466 9001 N17.8 Resident pulled IV out of armWill have IV re-inserte dcont IVF NS 0.9% at 100 cc/hr x 2 LEncourage fluids Repeat BMP 4/3 Dementia w ith behavioral disturbance 8791205769 103 F01.51 Add Seroquel 25 mg Q24h PRN, cont 25 mg QHSDepakot e ER 250 mg dailyLamic maryann 200 mg BIDClonaze katiuska 0.5 mg QHS, 0.5 mg BID PRNMonitor for behaviors [id number] NILA Rodrigues [facility] on [address] [place] [id number] 10/18/2019 12:20:38 10/24/2019 09:22:27 Cough 77580609 R05 Dry cough, lymphopeni a and weaknessFl u swab negativeCO VID testing pending Acute kidney injury 1466 9001 N17.8 Resident has removed IV line x 2BMP slightly improvedWi ll encourage oral intakeRepe at [facility] and if worsening will likely need to send to hospital Dementia w ith behavioral disturbance 2403014051 103 F01.51 Seroquel 25 mg QHS and 25 mg Q24h PRNDepakot e ER 250 mg dailyLamic maryann 200 mg BIDClonaze katiuska 0.5 mg QHSHave requested call back from patient's psychiatri st in community, Dr Arnie garcia for behaviors Recurrent falls 49283554 2 R29.6 Recent decline-un certain etiologyDe lirium secondary to dehydratio n possibleEn courage oral intake however if not improving [facility] patient's outpatient psychiatri st to discuss [id number] NILA Rodrigues [facility] on [address] [place] [id number] 10/22/2019 12:17:16 10/24/2019 10:28:12 COVID-19 602117658 U07.1 Remains afebrile with no respirator y sxsWill repeat COVID-19 testing 10/24-if negative will repeat test in 72h to enable patient virus-free and precaution s can be d/c'dCont supportive care Dementia w ith behavioral disturbance 2172120563 103 F01.51 Depakote ER 250 mg dailyLamic maryann 200 mg BIDSeroque l 25 mg QHSClonaze katiuska 0.5 mg QHSSupport taina care Monitor behaviors Depressive disorder 0868 9007 F33.8 Duloxetine 60 mg dailyPsych following Essential hypertension 02468804 I10 Restart losartan 100 mg dailyNorva sc 10 mg dailyMetop rolol 75 mg BIDMonitor bp and labs Diabetes mellitus 055352 09 E11.9 Trulicity 1.5 mg QweeklyMet formin currently on hold due to poor appetite, consider restarting if blood sugars elevatingB lood sugars consistent ly <200[place]ito r [id number] NILA Rodrigues [facility] on [address] [place] [id number] 11/01/2019 11:42:02 11/11/2019 15:51:19 COVID-19 678914028 U07.1 Remains afebrile with no respirator y sxsWill repeat COVID-19 testing today, if negative will repeat in 24h to enable removal of precaution sCont supportive care Dementia w ith behavioral disturbance 0831443512 103 F01.51 Depakote ER 250 mg dailyLamic maryann 200 mg BIDSeroque l 25 mg QHSClonaze katiuska 0.5 mg QHSSupport taina care Monitor behaviors Depressive disorder 3548 9007 F33.8 Duloxetine 60 mg dailyPsych following Essential hypertension 99078652 I10 Losartan 100 mg dailyNorva sc 10 mg dailyMetop rolol 75 mg BIDBP improved since losartan restartedM onitor bp and labs Diabetes mellitus 624665 09 E11.9 Blood sugars consistent ly <200, with occ. hypoglycem iaD/c TrulicityS tart metformin 500 [place] [id number] NILA Vu [facility] on [address] [place] [id number] 11/05/2019 10:57:32 11/12/2019 08:41:33 COVID-19 841542755 U07.1 continue to monitor temps, O2 satsmainta in droplet precaution smonitor for resp, gi distress [id number] Cindy Ireland MD [facility] on [address] [place] [id number] 11/08/2019 13:42:06 11/12/2019 10:09:39 COVID-19 940527820 U07.1 Could probably benefit from IV fluid, but doubtful that he would leave in. Will continue to monitor temps and O2 satsMonito r for change in condition. Retest on 11/10, 10 days from last test. Dementia w ith behavioral disturbance 6653877667 103 F01.51 Continues to have issues. Continue Depakote ER 250 mg qd, Lamictal 200 mg BID, Seroquel 25 mg qhs and clonazepam 0.5 mg qhs.Suppor tive care Monitor behaviors Depressive disorder 3548 9007 F33.8 Continue duloxetine 60 mg qd.Psych involvemen t as able. Diabetes mellitus 561025 09 E11.9 Blood sugars consistent ly <200, with occ. hypoglycem iaContinue metformin 500 mg qd.D/C blood sugars. [id number] NILA Rodrigues [facility] on [address] [place] [id number] 11/12/2019 14:08:37 11/15/2019 12:08:37 COVID-19 212104143 U07.1 Remains afebrile with no respirator y sxsWill repeat COVID-19 testing today, if negative will repeat in 24h to enable removal of precaution sCont supportive care [id number] [facility] on [address] [place] [id number] 11/13/2019 15:32:43 11/15/2019 14:59:19 COVID-19 279715265 U07.1 Remains afebrile with no respirator y sxsCOVID negative, will repeat in 24h to enable removal of precaution sCont supportive care [id number] [facility] on [address] [place] [id number] 3 11/19/2019 12:56:14 11/22/2019 09:23:42 COVID-19 187552366 U07.1 Remains afebrile with no respirator y sxsCOVID negative 11/11, can come off precaution s as patient has no symptoms [id number] [facility] on [address] [place] [id number] 12/02/2019 12:26:55 12/04/2019 15:18:49 COVID-19 801935991 U07.1 Resolved but will retest for negative result today per family request Dementia w ith behavioral disturbance 7936340559 103 F01.51 Continues to have issues. Continue Depakote ER 250 mg qd, Lamictal 200 mg BID, and clonazepam 0.5 mg qhs. D/C seroquel Call placed to Dr. Renay Laws for med plan Consider starting abilify 2 mg daily per discharge paperwork1 :1 at this time to due falls and abrupt behaviorsh ould have psych consultSTA T CBC, BMP and UA to rule out infectious process [id number] FARHAN [facility] on [address] [place] [id number] 12/03/2019 17:04:58 12/06/2019 09:20:48 COVID-19 744950363 U07.1 negative second testresolv ed Dementia w ith behavioral disturbance 1607157398 103 F01.51 Continues to have issues. Continue Depakote ER 250 mg qd, Lamictal 200 mg BID, and clonazepam 0.5 mg qhs. Call placed to Dr. Renay Laws for med plan Add risperidon e 0.25 mg BID and 0.5 mg QD PRN For severe behaviors1 :1 at this time to due falls and abrupt behaviorno abnormalit ies with labs [id number] [facility] [address] [place] [id number] 12/04/2019 08:19:32 12/06/2019 10:15:48 Dementia with behavioral disturbance 7144636359 103 F01.51 Continues to have issues. Continue Depakote ER 250 mg qd, Lamictal 200 mg BID, and clonazepam 0.5 mg qhs. corrected order today risperidon e 0.5 mg BID and 0.5 mg QD PRN For severe behaviors1 :1 at this time due to falls and abrupt behaviorno abnormalit ies with labswaitin g on UAmay increase klonopin if agitation persists [id number] [facility] [address] [place] [id number] 12/05/2019 09:43:30 12/10/2019 09:30:49 Dementia with behavioral disturbance 1623009807 103 F01.51 Continue Depakote ER 250 mg qd, Lamictal 200 mg BID, and clonazepam 0.5 mg qhs. Continue risperidon e 0.5 mg BID and 0.5 mg QD PRN For severe behaviors1 :1 at this time due to falls and abrupt behaviorwa iting on UA results [id number] [facility] on [address] [place] [id number] 12/06/2019 08:29:26 12/10/2019 10:26:37 Dementia with behavioral disturbance 3284109180 103 F01.51 Continue Depakote ER 250 mg qd, Lamictal 200 mg BID, and clonazepam 0.5 mg qhs. Continue risperidon e 0.5 mg BID and 0.5 mg QD PRN For severe behaviors1 :1 at this time due to falls and abrupt behavior- UA was ordered on the but for some reason nursing did not complete. Will obtain today for UACSAsk family to allow us to keep patient for at least another week to get him safe to transfer home [id number] NILA Rodrigues [facility] on [address] [place] RAMESH [id number] 3 12/11/2019 13:29:06 12/13/2019 13:05:48 Dementia with behavioral disturbance 4832563878 103 F01.51 Continue Depakote ER 250 mg qd, Lamictal 200 mg BID, and clonazepam 0.5 mg qhs. Continue risperidon e 0.5 mg BID and 0.5 mg QD PRN For severe behaviorsS ervices in place for dischargeA lso has supportive family who will be providing careWill need f/u with PCP and psych in community COVID-19 838064911 U07.1 Remains afebrile with no respirator y sxsIs recovered Depressive disorder 3548 9007 F33.8 Duloxetine 60 mg dailyF/u with psych in community Essential hypertension 92628473 I10 Losartan 100 mg dailyNorva sc 10 mg dailyMetop rolol 75 mg BIDBP well controlled F/u with PCP Diabetes mellitus 133359 09 E11.9 Blood sugars excellentT rulicity 1.5 mg QweeklyF/u with PCP Unsteady gait 620736249 R26.81 Needs assist to ambulate with walker otherwise is wheelchair dependentS ervices in place for discharge [id number] SHANIQUA PELAEZ [address] [place] [address] JAMA RAVI [id number] 5 07/06/2020 12:50:39 07/15/2020 12:43:11 Chronic obstructive pulmonary disease 32909389 J44.9 albuterol mdi prn COVID-19 240049990 U07.1 recovered 06/19 negative Depressive disorder 3548 9007 F32.9 cymbalta 60 mg daily lamotrigin e 200 mg bid Diabetes mellitus 233915 09 E11.9 metformin 500 mg bid poc monitoring Essential hypertension 64696722 I10 losartan 100 mg daily amlodipine 5 mg daily metoprolol 75 mg bid Generalize d anxiety disorder 13724002 F41.1 clonazapam 1 mg bid depakote 250 mg daily Neurocogni tive disorder 343520810 R41.9 monitor for any changes Suicidal thoughts 423399 6 R45.851 monitor for this psych prn Vascular d ementia with behavioral disturbance 9009878099 54972 F01.51 depakote 250 mg daily Benign pro static hyperplasia 588681207 N40.0 tamsulosin 0.8 mg daily george cath prn, voiding trial Gastroesop hageal reflux disease without esophagitis 699652734 K21.9 pepcid 20 mg bid Hyperlipidemia 45027044 E78.5 atorvastat in 80 mg daily History of cerebrovascular accident 152660884 Z86.73 plavix 75 mg qd ASA 81 mg qd lipitor 80 mg qd [id number] Cindy Ireland MD [address] [place] [address] 07/07/2020 12:39:17 07/15/2020 12:48:23 Diverticulitis of colon with perforation 09131423 K57.20 Completed course of augmentin on 07/03. No current sxs. Monitor for recurrence . Chronic ob structive pulmonary disease 06505861 J43.8 No current sxs. Continue albuterol MDI 2 puffs q 4 hrs prn Monitor resp. status. COVID-19 521851041 U07.1 Was + in October. Now recovered, but considered naive again as >3 months from illness. Monitor for sxs and sequelae. Depressive disorder 3548 9007 F33.1 Continue cymbalta 60 mg qd and lamotrigin e 200 mg BID. monitor mood. Psych consult prn. Diabetes mellitus 562946 09 E11.9 Continue metformin 500 mg BID/ Monitor accuchecks prn sxs. Essential hypertension 21194540 I10 In good control since admission. Continue losartan 100 mg qd, amlodipine 5 mg qd and metoprolol 75 mg BID. Monitor BP and labs. Generalize d anxiety disorder 96346449 F41.1 Mood stable at this time. Continue clonazapam 1 mg BID and depakote 250 mg qd. Monitor mood. Psych consult prn. Suicidal thoughts 170986 6 R45.851 Hx of this. Monitor. Psych consult prn Vascular d ementia with behavioral disturbance [id number] 54287 F01.51 HCP invoked. Continue meds as aboveConti nue supportive care, expect decline.Mo nitor mood and behaviors. Psych consult prn. Benign pro static hyperplasia 159532224 N40.[address] Will plan voiding trial for when he is stronger and more mobile. Continue tamsulosin 0.8 mg qd. Uro consult prn. Gastroesop hageal reflux disease without esophagitis 488170728 K21.9 No current sxs. Continue famotidine 20 mg BID. Monitor for sxs. Hyperlipidemia 65956487 E78.49 Continue atorvastat in 80 mg qd. Monitor labs yearly. History of cerebrovascular accident 360983485 Z86.73 Continue plavix 75 mg qd, ASA 81 mg qd, and statin as above. Monitor for sxs. Acute kidney injury 1466 9001 N17.8 With worsening renal function today. Will push fluids and recheck labs tomorrow. Consider IV fluid if not improving. [id number] SELENA LOPES NP [address] [address] 07/08/2020 10:23:35 07/15/2020 14:16:30 COVID-19 785566723 U07.1 recovered 06/19 negative Altered mental status 41 3224732 R41.82 will send to ED for eval of decreased mental status and abnormal labs [id number] [facility] [address] [place] [address] 07/14/2020 09:12:03 07/20/2020 12:08:31 Acute kidney injury 28673850 N17.9 monitor labs avoid nephrotoxi c meds Altered mental status 41 6439662 R41.82 monitor for any changes in mental status Benign pro static hyperplasia 786752032 N40.0 tamsulosin 0.8 mg daily george cath Chronic ob structive pulmonary disease 18308136 J44.9 albuterol mdi prn COVID-19 495937770 U07.1 recovered 06/19 negative 07/13negat taina Depressive disorder 3548 9007 F32.9 cymbalta 60 mg daily lamotrigin e 200 mg bid Diabetes mellitus 815012 09 E11.9 metformin 500 mg bid poc monitoring Diverticul itis of colon with perforation 12924576 K57.20 flagyl 500 mg daily to 1/2 Essential hypertension 48505081 I10 losartan 100 mg daily amlodipine 5 mg daily Gastroesop hageal reflux disease without esophagitis 535968114 K21.9 pepcid 20 mg bid Generalize d anxiety disorder 84473589 F41.1 clonazapam 0.5 mg hs depakote 250 mg daily History of cerebrovascular accident 512577111 Z86.73 plavix 75 mg qd ASA 81 mg qd lipitor 80 mg qd Hyperlipidemia 70150869 E78.5 atorvastat in 80 mg daily Neurocogni tive disorder 006983373 R41.9 monitor for any changes Vascular d ementia with behavioral disturbance 2920913004 01025 F01.51 depakote 250 mg daily [id number] SELENA LOPES NP [address] [address] 07/22/2020 11:11:35 07/27/2020 16:27:14 Altered mental status 697270969 R41.82 monitor for any changes in mental status risperdal 1 mg daily for hallucinat ions UA C/S Vascular d ementia with behavioral disturbance 6326191148 19761 F01.51 depakote 250 mg daily Benign pro static hyperplasia 156461415 N40.0 tamsulosin 0.8 mg daily voiding trial [id number] SELENA LOPES NP [address] [address] 07/24/2020 10:01:25 07/28/2020 10:39:04 Altered mental status 837631312 R41.82 monitor for any changes in mental status risperdal 1 mg daily for hallucinat ions UA C/S Falls 577535768 R29.6 fall precaution s frequent safety checks PT OT eval and treat Vascular d ementia with behavioral disturbance 0240820722 63846 F01.51 depakote 250 mg daily Diverticul osis of sigmoid colon 863871613 K57.30 Augmentin 875/125 bid to 08/07 [id number] Cindy Ireland MD [address] [place] [address] 07/27/2020 11:57:13 08/07/2020 15:04:44 Falls 589207890 R29.6 Continue fall precaution s and 1:1 when able. Needs PT/OT for strengthen ing, balance, gait training, safety and function. Vascular d ementia with behavioral disturbance 5999537312 69178 F01.51 Somewhat improved from AMS that sent him to hospital, but still worsened from previous baseline. Probably at new baseline. Continue depakote 250 mg qd, risperdal 1 mg qd for hallucinat ions, duloxetine 60 mg qd, lamotrigin e 200 mg BID, and clonazepam 0.5 mg qhs. Continue supportive care, expect decline.Mo nitor mood and behaviors. Psych consult involved. Diverticul itis of colon with perforation 63090207 K57.20 Completed first course of augmentin on 07/03. Now on Augmentin 875/125 BID until 08/07 Monitor for sxs. F/U with surgery prn. Acute kidney injury 1466 9001 N17.8 Back to baseline.C ontinue to avoid nephrotoxi c meds as able.Monit or labs.Renal consult prn. Chronic ob structive pulmonary disease 27592900 J43.8 No current sxs. Continue albuterol MDI 2 puffs q 4 hrs prn Monitor resp. status. COVID-19 153242790 Z86.1 6 Was + in October. Now recovered, but considered naive again as >3 months from illness. Monitor for sxs and sequelae. Depressive disorder 5058 9007 F33.1 Continue meds as above. Monitor mood. Hx of SI. Psych consult prn. Diabetes mellitus 337458 09 E11.9 Taken off metformin due to ROBERT. Now on SSI only, and sugars all <200 Monitor accuchecks TID for now. D/C if stable. Essential hypertension 67899554 I10 Continues to be in good control. Continue losartan 100 mg qd, amlodipine 5 mg qd and metoprolol 75 mg BID. Monitor BP and labs. Generalize d anxiety disorder 91276142 F41.1 Mood labile. Continue meds as above. Monitor mood. Psych involved. Benign pro static hyperplasia 977699114 N40.0 Continue tamsulosin 0.8 mg qd. Uro consult prn. Gastroesop hageal reflux disease without esophagitis 064098878 K21.9 No current sxs. Continue famotidine 20 mg BID. Monitor for sxs. Hyperlipidemia 38432345 E78.49 Continue atorvastat in 80 mg qd. Monitor labs yearly. History of cerebrovascular accident 238934471 Z86.73 Continue plavix 75 mg qd, ASA 81 mg qd, and statin as above. Monitor for sxs. Health Concerns Section Related Observation LastModified by Organization Detai ls LastModified Time None Recorded Concern Status LastModified by Organization Details LastModified Time None Recorded Advance Directives Directive Y: dnr dni Payers Encounter Date Sequence Insurance Name Policy Number Policy Mixon Covered Member ID Mixon Member ID Guarantor Name 07/08/2020 1 [facility] H[facility] [id number] Dragan Figueroa 07/14/2020 1 [facility] (MEDICAID HMO) [facility] [id number] Dragan Figueroa 07/22/2020 1 [facility] NET PLAN (MEDICAID HMO) LILY Figueroa [id number] Dragan Figueroa 07/24/2020 1 [facility] (MEDICAID HMO) [facility] [id number] Dragan Figueroa 07/27/2020 1 MEDICARE B-MD: [facility] Dragan Figueroa [id number] Dragan Figueroa Notes Date Note Type Note Provider Name and Address Organization Details Recorded Time 07/08/2020 text/html asked by nursing to see this pt, he has had a decrease in mental status since yesterday, seen by MD and labs ordered, WBC increasing, he also has not eaten or drank anything since yesterday, will send him to the ED for further evaluation SELENA LOPES NP [address] [facility], [address], [place], [address], [facility] 07/08/2020 12:25:06 07/14/2020 text/html seen today for readmission- 64 yom readmitted to for rehab, he was sent to the hospital for altered mental status and frequent falls, clonazepam was decreased and gabapentin was stopped. treated for hypernatremia and robert with kidney failure, and his creatinine was back to baseline and his mental status improved. CT showed a worsening abcess but no surgical intervention, but started on flagyl, blood cultures negative and rocephin given for possible uti. CAOx1 very dry mouth and he is complaining he is thirsty, staff made aware, lungs clear dim bases, poor effort, he will need to be fed his meals and staff is aware of this, george intact clear yellow urine,moving all extremities SELENA LOPES NP [address] [facility], [address], [place], [address], [facility] 07/14/2020 09:55:51 07/22/2020 text/html seen today for acute rounding visit, MARKx1 being fed breakfast, he is calm and cooperative eating fairly well, staff report he has been pulling on his george, ordered it to be removed before he causes urethral trauma, lungs clear -received a call after lunch, he fell again, now hallucinating about antonio , wanting to go outside to smoke and get fresh air, and is requiring a 1:1 for safety, ordered a UA C/S and 1 mg Risperdal daily for 5 days SELENA LOPES NP [address] [facility], [address], [place], [address], [facility] 07/22/2020 15:30:28 07/24/2020 text/html seen today for acute rounding visit, CAObernie sitting in a wheelchair in the day room, he was started on Bactrim 07/22 for possible uti, he has had frequent falls this admission, fell again yesterday and complained of hip pain and would not move his legs, sent to the ED for evaluation of the fall and pain. In the ED UA-, CXR negative, pelvis negative, CT abd persistent air-fluid level in a pocket the pericolonic fat adjacent to the sigmoid colon, which has been seen on prior exams, Jun 2020, this is a little smaller than the prior exam of 07/08, there is no significant edema in the surrounding fat, no new abcess or inflammation, Augmentin was started for this and Bactrim was discontinued. risperdal has also been started for delusions and hallucinations. SELENA LOPES NP [address] [facility], [address], [place], [address], [facility] 07/24/2020 11:04:48 07/27/2020 text/html This is a 64 yo man who I am seeing today for his 30 day reeval. He has been here since 07/03 due to frequent falls, confusion and difficulty caring for himself. He was readmitted 07/08- because of lethargy and found to have worsening diverticular abscess, was started on flagyl and IV fluid. Also clonazepam was decreased and gabapentin was stopped. Surgery felt no need for surgical intervention. He was also txed for mild ROBERT and hypernatremia. Since back he continues to be very weak and needs to be fed his meals. He continues to have falls due to poor safety awareness. He tries to reach for things out of his reach, or starts to get up from his wheelchair/bed and if staff is not right next to him, he falls. He needs almost constant supervision. He also frequently makes sexually inappropriate comments to staff. He tells me today he feels fine. His PMH includes HTN, hx of CVA, COPD, AODM, vascular dementia, and was covid + in 10/2019. Cindy Ireland MD [address] [facility], [address], [place], [address], [facility] 08/06/2020 12:34:03
--- OUTSIDE RECORDS SUMMARY | 2024-12-04 13:55 | XMS_ITS | Encounter Summary ---
Author Organization [facility] Address [address] [place] [address] Care Team Providers Care Concrete Polisher Name Role Phone Suman Lu PA-C Primary Care Provider [phone] Chari Dee MD Unavailable [phone] Reason for Visit * Reason Onset Date Comments VNA Call 11/22/2021 Encounter Details Date Type Department Care Team Description 11/22/2021 Telephone Adult Medicine [address] [address] Suman Lu PA-C [address] [place] [address] [phone] VNA Call Social History Tobacco Use Types Packs/Day Years Used Date Smoking Tobacco: Never Smokeless Tobacco: Never Alcohol Use Standard Drinks/Week Comments No 0 (1 standard drink = 0.6 oz pur e alcohol) Sex Assigned at Date Recorded Not on file Job Start Date Occupation Industry Not on file Not on file Not on file COVID-19 Exposure Response Date Recorded In the last 10 days, have yo u been in contact with someone who was confirmed or suspected to have Coronavirus/COVID-19? No / Unsure 11/25/2021 12:38 PM EDT documented as of this encounter Miscellaneous Notes * Telephone Encounter - Suman Lu PA-C - 11/22/2021 2:04 PM EDT Noted. * Telephone Encounter - Sree Toledo L.P.N. - 11/22/2021 1:43 PM EDT See FYI from VNA * Telephone Encounter - Lexus Burris - 11/22/2021 11:55 AM EDT VNA CALL Which A office is calling? [facility] Full name of caller: LOLA The caller is An Occupational Therapist Is the caller at the patients home?: NO Reason for call: THE OCCUPATION THERAPIST IS CALLING STATING SHE GOING TO THE SEE THE PATIENT OUTSIDE OF THE 5 DAYS PERIOD. SHE SAID SHE DOESN'T NEED ORDER STILL WITHIN THE TIME FRAME. Does caller need an urgent call back? NO Was CONTACT Telephone # obtained above?: YES Fax #: documented in this encounter Plan of Treatment Not on file documented as of this encounter Visit Diagnoses Not on filedocumented in this encounter Care Teams Concrete Polisher Relationship Specialty Start Date End Date Suman Lu PA-C [address] [place] [address] PCP - General Internal Medicine 12/22/20 Chari Dee MD [address] [place] [address] Specialist Cardiology 07/25/23 documented as of this encounter
--- OUTSIDE RECORDS SUMMARY | 2024-12-04 13:55 | XMS_ITS | Encounter Summary ---
Author Organization [facility] Address [address] [place] [address] Care Team Providers Care Cad Intern Name Role Phone Name, Luke ROPER Primary Care Provider Unavailabl e Yoel Cervantes MD Primary Care Provider + [phone] Yoel Cervantes MD Primary Care Provider + [phone] Suman Lu PA-C Primary Care Provider [phone] Chari Dee MD Unavailable [phone] Encounter Details Date Type Department Care Team Description 09/07/2010 Hospital Medical Records [address] [place] [address] Jae Bee MD Social History Tobacco Use Types Packs/Day Years Used Date Smoking Tobacco: Never Smokeless Tobacco: Never Alcohol Use Standard Drinks/Week Comments No 0 (1 standard drink = 0.6 oz pur e alcohol) Sex Assigned at Date Recorded Not on file Job Start Date Occupation Industry Not on file Not on file Not on file documented as of this encounter Plan of Treatment Not on file documented as of this encounter Visit Diagnoses Not on filedocumented in this encounter Care Teams Cad Intern Relationship Specialty Start Date End Date Name, MD Luke PCP - General 12/02/08 09/21/14 Yoel Cervantes MD [address] [place] [address] PCP - General Internal Medicine 06/24/15 12/21/20 Yoel Cervantes MD [address] [place] [address] PCP - General 09/22/14 06/23/15 Suman Lu PA-C [address] [place] [address] [phone] PCP - General Internal Medicine 12/22/20 Chari Dee MD [address] [place] [address] [phone] Specialist Cardiology 07/25/23 documented as of this encounter
--- OUTSIDE RECORDS SUMMARY | 2024-12-04 13:55 | XMS_ITS | Encounter Summary ---
Author Organization [facility] Address [address] [place] [address] Care Team Providers Care Reverser Name Role Phone Yoel Cervantes MD Primary Care Provider [phone] Suman Lu PA-C Primary Care Provider [phone] Chari Dee MD Unavailable [phone] Reason for Visit * Reason Onset Date Comments VNA Call 05/18/2017 Encounter Details Date Type Department Care Team Description 05/18/2017 Telephone Adult [address] [phone] Yoel Cervantes MD [address] [place] [address] [phone] VNA Call Social History Tobacco Use Types [...] encounter Miscellaneous Notes * Telephone Encounter - Dash Maguire R.N - 05/18/2017 4:42 PM EDT fyi Verbal orders given for OT social insurance administrator and home health aid * Telephone Encounter - Lexus Burris - 05/18/2017 4:10 PM EDT VNA CALL Which VNA office is calling? [facility] Full name of caller: SHERRILL The caller is An Occupational Therapist Is the caller at the patients home?: NO Reason for call: THE OCCUPATIONAL THERAPIST IS CALLING TO GET A VERBAL ORDER FOR [employer]WRITER OCCUPATIONAL THERAPY AND HOME HEALTH AID Does caller need an urgent call back? NO Was CONTACT Telephone # obtained above?: YES Fax #: documented in this encounter Plan of Treatment Not on file documented as of this encounter Visit Diagnoses Not on filedocumented in this encounter Care Teams Reverser Relationship Specialty Start Date End Date Yoel Cervantes MD [address] [place] [address] PCP - General Internal Medicine 06/24/15 12/21/20 Suman Lu PA-C [address] [place] [address] PCP - General Internal Medicine 12/22/20 Chari Dee MD [address] [place] [address] Specialist Cardiology 07/25/23 documented as of this encounter
--- OUTSIDE RECORDS SUMMARY | 2024-12-04 13:55 | XMS_ITS | Encounter Summary ---
Author Organization [facility] Address [address] [place] [address] Care Team Providers Care Clinical Nutritionist Name Role Phone Yoel Cervantes MD Primary Care Provider [phone] Suman Lu PA-C Primary Care Provider [phone] Chari Dee MD Unavailable [phone] Reason for Visit * Reason Onset Date Comments LAB WORK 05/22/2017 Encounter Details Date Type Department Care Team Description 05/22/2017 Telephone Adult Medicine [address] [phone] Yoel Cervantes MD [address] [place] [address] [phone] LAB WORK Social History Tobacco Use Types Packs/Day Years [...] encounter Miscellaneous Notes * Telephone Encounter - Ijeoma Gallardo M.A. - 05/22/2017 9:15 AM EST Lm for patient to return call Re: Magnesium level low, restart, let Earnest know if script needed documented in this encounter Plan of Treatment Not on file documented as of this encounter Visit Diagnoses Not on filedocumented in this encounter Care Teams Clinical Nutritionist Relationship Specialty Start Date End Date Yoel Cervantes MD [address] [place] [address] PCP - General Internal Medicine 06/24/15 12/21/20 Suman Lu PA-C [address] [place] [address] PCP - General Internal Medicine 12/22/20 Chari Dee MD [address] [place] [address] [phone] Specialist Cardiology 07/25/23 documented as of this encounter
--- OUTSIDE RECORDS SUMMARY | 2024-12-04 13:55 | XMS_ITS | Encounter Summary ---
Author Organization [facility] Address [address] [place] [address] Care Team Providers Care Space Operations Name Role Phone Name, Luke ROPER Primary Care Provider Unavailabl e Yoel Cervantes MD Primary Care Provider + [phone] Yoel Cervantes MD Primary Care Provider + [phone] Suman Lu PA-C Primary Care Provider [phone] Chari Dee MD Unavailable [phone] Encounter Details Date Type Department Care Team Description 10/26/2010 Heater Helper Report Medical Records [address] [place] [address] Name, MD Luke Social History Tobacco Use Types Packs/Day Years Used Date Smoking Tobacco: Never Alcohol Use Standard Drinks/Week Comments [...] on filedocumented in this encounter Care Teams Space Operations Relationship Specialty Start Date End Date Luke Cline MD PCP - General 12/02/08 09/21/14 Yoel Cervantes MD [address] [place] [address] PCP - General Internal Medicine 06/24/15 12/21/20 Yoel Cervantes MD [address] [place] [address] PCP - General 09/22/14 06/23/15 Suman Lu PA-C [address] [place] [address] PCP - General Internal Medicine 12/22/20 Chari Dee MD [address] [place] [address] [phone] Specialist Cardiology 07/25/23 documented as of this encounter
--- OUTSIDE RECORDS SUMMARY | 2024-12-04 13:55 | XMS_ITS | Encounter Summary ---
Author Organization [facility] Address [address] [place] [address] Care Team Providers Care Panel Instrument Repairer Name Role Phone Name, Luke ROPER Primary Care Provider Unavailabl e Yoel Cervantes MD Primary Care Provider + [phone] Yoel Cervantes MD Primary Care Provider + [phone] Suman Lu PA-C Primary Care Provider [phone] Chari Dee MD Unavailable [phone] Encounter Details Date Type Department Care Team Description 09/16/2010 Hospital Medical Records [address] [place] [address] WesternRupesh guerin Social History Tobacco Use Types Packs/Day Years [...] on filedocumented in this encounter Care Teams Panel Instrument Repairer Relationship Specialty Start Date End Date Name, MD Luke PCP - General 12/02/08 09/21/14 Yoel Cervantes MD [address] [place] [address] [phone] PCP - General Internal Medicine 06/24/15 12/21/20 Yoel Cervantes MD [address] [place] [address] PCP - General 09/22/14 06/23/15 Suman Lu PA-C [address] [place] [address] [phone] PCP - General Internal Medicine 12/22/20 Chari Dee MD [address] [place] [address] [phone] Specialist Cardiology 07/25/23 documented as of this encounter
--- OUTSIDE RECORDS SUMMARY | 2024-12-04 13:55 | XMS_ITS | Encounter Summary ---
Author Organization [facility] Address [address] [place] [address] Care Team Providers Care Presales Consultant Name Role Phone Suman Lu PA-C Primary Care Provider [phone] Chari Dee MD Unavailable [phone] Encounter Details Date Type Department Care Team Description 10/20/2021 Hospital Medical Records [address] [place] [address] Social History Tobacco Use Types Packs/Day Years [...] suspected to have Coronavirus/COVID-19? No / Unsure 10/11/2021 4:07 PM EDT documented as of this encounter Plan of Treatment Not on file documented as of this encounter Visit Diagnoses Not on filedocumented in this encounter Care Teams Presales Consultant Relationship Specialty Start Date End Date Suman Lu PA-C [address] [place] [address] PCP - General Internal Medicine 12/22/20 Chari Dee MD [address] [place] [address] Specialist Cardiology 07/25/23 documented as of this encounter
--- OUTSIDE RECORDS SUMMARY | 2024-12-04 13:55 | XMS_ITS | Encounter Summary ---
Author Organization [facility] Address [address] [place] [address] Care Team Providers Care Flight Engineer Performance Qualified Name Role Phone Suman Lu PA-C Primary Care Provider [phone] Chari Dee MD Unavailable [phone] Encounter Details Date Type Department Care Team Description 10/21/2021 Hospital Medical Records [address] [place] [address] Anusha Herbert PA-C [address] [place] [address] [phone] Social History Tobacco Use Types Packs/Day Years [...] on filedocumented in this encounter Care Teams Flight Engineer Performance Qualified Relationship Specialty Start Date End Date Suman Lu PA-C [address] [place], [place] [phone] PCP - General Internal Medicine 12/22/20 Chari Dee MD [address] [place] [address] [place] [phone] Specialist Cardiology 07/25/23 documented as of this encounter
--- OUTSIDE RECORDS SUMMARY | 2024-12-04 13:55 | XMS_ITS | Encounter Summary ---
Author Organization [facility] Address [address] [place] [address] Care Team Providers Care Yard Clerk Name Role Phone Name, Luke ROPER Primary Care Provider Unavailabl e Yoel Cervantes MD Primary Care Provider + [phone] Yoel Cervantes MD Primary Care Provider + [phone] Suman Lu PA-C Primary Care Provider [phone] Chari Dee MD Unavailable [phone] Encounter Details Date Type Department Care Team Description 10/26/2011 Pensions Retirement Plan Specialist Report Medical Records [address] [place] [address] Paco Yusuf MD Social History Tobacco Use Types Packs/Day [...] on filedocumented in this encounter Care Teams Yard Clerk Relationship Specialty Start Date End Date Name, MD Luke PCP - General 12/02/08 09/21/14 Yoel Cervantes MD [address] [place] [address] PCP - General Internal Medicine 06/24/15 12/21/20 Yoel Cervantes MD [address] [place] [address] PCP - General 09/22/14 06/23/15 Suman Lu PA-C [address] [place] [address] [phone] PCP - General Internal Medicine 12/22/20 Chari Dee MD [address] [place] [address] [phone] Specialist Cardiology 07/25/23 documented as of this encounter
--- OUTSIDE RECORDS SUMMARY | 2024-12-04 13:55 | XMS_ITS | Encounter Summary ---
Author Organization [facility] Address [address] [place] [address] Care Team Providers Care Needle Maker Name Role Phone Yoel Cervantes MD Primary Care Provider [phone] Suman Lu PA-C Primary Care Provider [phone] Chari Dee MD Unavailable [phone] Reason for Visit * Reason Comments E-prescribe Rx Request Encounter Details Date Type Department Care Team Description 06/05/2017 Refill Adult Medicine [address] [phone] Suman Lu PA-C [address] [place] [address] [phone] E-prescribe Rx Request Social History Tobacco Use Types Packs/Day Years [...] encounter Miscellaneous Notes * Telephone Encounter - Cami Barron - 06/05/2017 10:58 AM EST Patient would like script to be: E-PRESCRIBED/FAXED TO PHARMACY WHEN WAS THE PATIENT'S LAST APPOINTMENT IN ADULT MEDICINE? 11/9/17 WHEN WAS THE LAST TIME THE PATIENT SAW THEIR PCP? Same as above Does patient have an upcoming appointment? Yes 08/02/17 (THE MEDICATION REQUESTED IS ON THE MED LIST ABOVE) All of the medications requested were on the CURRENT MEDS list Did you check the Pharmacy information above?: YES Patient wants: 30 -day supply Is this a mail order prescription request ? NO Patients current insurance carrier is: Payor: [facility] MEDICAID / Plan: [facility] MEDICAID O $0 SHEA / Product Type: HMO [id number] documented in this encounter Plan of Treatment Not on file documented as of this encounter Visit Diagnoses Diagnosis Uncontrolled type 2 diabetes mellitus without complication, without long-term current use of insulin documented in this encounter Care Teams Needle Maker Relationship Specialty Start Date End Date Yole Cervantes MD [address] [place] [address] PCP - General Internal Medicine 06/24/15 12/21/20 Suman Lu PA-C [address] [place] [address] PCP - General Internal Medicine 12/22/20 Chari Dee MD [address] [place] [address] [phone] Specialist Cardiology 07/25/23 documented as of this encounter
--- OUTSIDE RECORDS SUMMARY | 2024-12-04 13:55 | XMS_ITS | Encounter Summary ---
Author Organization [facility] Address [address] [place] [address] Care Team Providers Care Abalone Processor Name Role Phone Suman Lu PA-C Primary Care Provider +[phone] Chari Dee MD Unavailable [phone] Reason for Visit * Reason Onset Date Comments Medication 02/01/2022 Encounter Details Date Type Department Care Team Description 02/01/2022 Telephone Adult Medicine [address] [phone] Suman Lu PA-C [address] [place] [address] [phone] Medication Social History Tobacco Use Types Packs/Day Years [...] suspected to have Coronavirus/COVID-19? No / Unsure 02/03/2022 4:24 PM EDT documented as of this encounter Miscellaneous Notes * Telephone Encounter - Suman Lu PA-C - 02/01/2022 4:04 PM EDT Okay prescription sent * Telephone Encounter - Luna Flores M.A. - 02/01/2022 3:33 PM EDT Pt requesting Gabapentin 300 mg, med has been discontinued from med list. Pt advises pcp will refill this for him * Telephone Encounter - Luna Flores M.A. - 02/01/2022 3:28 PM EDT Pt asking for Gabapentin 300 mg which has been taken * Telephone Encounter - Lou Werner - 02/01/2022 3:22 PM EDT *MED WAS TAKEN OFF MEDS LIST, PT IS LOOKING TO SEE IF [facility] CAN REFILL SCRIPT, WAS ADVISED AT LAST OV HE WOULD FILL* Patient would like script to be: E-PRESCRIBED/FAXED TO PHARMACY When was the patients last office visit in Adult Medicine?: 11/17/2021 When was the last time the patient saw their PCP? Same as above Does patient have an upcoming appointment? Yes 03/14/2022 (THE MEDICATION IS NOT ON THE MED LIST AND IS IDENTIFIED BELOW): {MED LIST:91292) Med name: Gabapentin Dosage: 300 MG # of tablets: Local pharmacy with request for 30 -day supply Instructions: Did you check the pharmacy information above?: YES Patients current insurance carrier: Payor: [employer] MEDICARE FFS / Plan: [facility] MDCR-ADV PPO $0 [place] [id number] / Product Type: PPO [id number] documented in this encounter Plan of Treatment Not on file documented as of this encounter Visit Diagnoses Not on filedocumented in this encounter Care Teams Abalone Processor Relationship Specialty Start Date End Date Suman Lu PA-C [address] [place] [address] PCP - General Internal Medicine 12/22/20 Chari Dee MD [address] [place] [address] Specialist Cardiology 07/25/23 documented as of this encounter
--- OUTSIDE RECORDS SUMMARY | 2024-12-04 13:55 | XMS_ITS | Encounter Summary ---
Author Organization [facility] Address [address] [place] [address] Care Team Providers Care Engine Installer Name Role Phone Name, Luke ROPER Primary Care Provider Unavailabl e Yoel Cervantes MD Primary Care Provider + [phone] Yoel Cervantes MD Primary Care Provider + [phone] Suman Lu PA-C Primary Care Provider [phone] Chari Dee MD Unavailable [phone] Encounter Details Date Type Department Care Team Description 05/08/2012 Release of Information Medical Records [address] [place] [id number] Abstract, Provider Social History Tobacco Use Types Packs/Day Years [...] on filedocumented in this encounter Care Teams Engine Installer Relationship Specialty Start Date End Date Name, MD Luke PCP - General 12/02/08 09/21/14 Yoel Cervantes MD [address] [place] [address] [phone] PCP - General Internal Medicine 06/24/15 12/21/20 Yoel Cervantes MD [address] [place] [address] PCP - General 09/22/14 06/23/15 Suman Lu PA-C [address] [place] [address] [phone] PCP - General Internal Medicine 12/22/20 Chari Dee MD [address] [place] [address] [phone] Specialist Cardiology 07/25/23 documented as of this encounter
--- OUTSIDE RECORDS SUMMARY | 2024-12-04 13:55 | XMS_ITS | Encounter Summary ---
Author Organization [facility] Address [address] [place] [address] Care Team Providers Care House Calls Nurse Practitioner Name Role Phone Yoel Cervantes MD Primary Care Provider [phone] Suman Lu PA-C Primary Care Provider + [phone] Chari Dee MD Unavailable [phone] Encounter Details Date Type Department Care Team Description 05/02/2018 Orders Only Adult Medicine [facility] [address], [place] [phone] Yoel Cervantes MD [address] [place] [address] [phone] Confusion (Primary Dx) Social History Tobacco Use Types Packs/Day Years [...] on file documented as of this encounter Results * URINE, CULTURE (05/03/2018 2:45 PM EDT) Urine (Urine) 05/03/2018 2:4 5 PM EDT 05/03/2018 2:46 PM EDT [facility]ative [facility] - 05/05/2018 12:10 PM EDT 10,000 - 49,000 CFU/mL NORMAL SKIN/UROGENITAL PIA PRESENT. Yoel Cervantes MD LAB Performing Organization Address [facility]/ZIP Co de Phone Number [facility] * URINALYSIS, ROUTINE (05/03/2018 2:45 PM EDT) SPECIFIC GRAVITY, URINE 1.010 1.005 - 1.030 05/03/2018 2:57 PM EDT [facility] PH, URINE 7.0 5 - 8 05/03/2018 2:57 PM EDT [facility] PROTEIN, URINE NEGATIVE <=TRACE mg/dL 05/03/2018 2:57 PM EDT [facility] GLUCOSE, URINE (UA) NEGATIVE NEGATIVE mg/dL 05/03/2018 2:57 PM EDT [facility] KETONE, URINE NEGATIVE NEGATIVE mg/dL 05/03/2018 2:57 PM EDT [facility] BLOOD, URINE NEGATIVE NEGATIVE 05/03/2018 2:57 PM EDT [facility] NITRITE,URINE NEGATIVE NEGATIVE 05/03/2018 2:57 PM EDT [facility] LEUKOCYTE ESTERASE, URINE NEGATIVE NEGATIVE 05/03/2018 2:57 PM EDT [facility] 05/03/2018 2:45 PM EDT 05/03/2018 2:46 PM EDT Yoel Cervantes MD LAB Performing Organization Address [facility] Co de Phone Number [facility] [address] [place] [address] documented in this encounter Visit Diagnoses Diagnosis Confusion- Primary Unspecified psychosis documented in this encounter Care Teams House Calls Nurse Practitioner Relationship Specialty Start Date End Date Yoel Cervantes MD [address] [place] [address] 99257 PCP - General Internal Medicine 06/24/15 12/21/20 Suman Lu PA-C [address] [place] [address] PCP - General Internal Medicine 12/22/20 Chari Dee MD [address] [place] [address] Specialist Cardiology 07/25/23 documented as of this encounter
--- OUTSIDE RECORDS SUMMARY | 2024-12-04 13:55 | XMS_ITS | Encounter Summary ---
Author Organization [facility] Address [address] [place] [address] Care Team Providers Care Barrel Bung Remover And Dumper Name Role Phone Name, Luke ROPER Primary Care Provider Unavailabl e Yoel Cervantes MD Primary Care Provider + [phone] Yoel Cervantes MD Primary Care Provider + [phone] Suman Lu PA-C Primary Care Provider [phone] Chari Dee MD Unavailable [phone] Encounter Details Date Type Department Care Team Description 09/17/2010 Hospital Medical Records [address] [place] [address] Carleen Flowers Social History Tobacco Use Types Packs/Day Years [...] on filedocumented in this encounter Care Teams Barrel Bung Remover And Dumper Relationship Specialty Start Date End Date Name, MD Luke PCP - General 12/02/08 09/21/14 Yoel Cervantes MD [address] [place] [address] [phone] PCP - General Internal Medicine 06/24/15 12/21/20 Yoel Cervantes MD [address] [place] [address] PCP - General 09/22/14 06/23/15 Suman Lu PA-C [address] [place] [address] [phone] PCP - General Internal Medicine 12/22/20 Chari Dee MD [address] [place] [address] [phone] Specialist Cardiology 07/25/23 documented as of this encounter
--- OUTSIDE RECORDS SUMMARY | 2024-12-04 13:55 | XMS_ITS | Encounter Summary ---
Author Organization [facility] Address [address] [place] [address] Care Team Providers Care Rubber Factory Worker Name Role Phone Name, Luke ROPER Primary Care Provider Unavailabl e Yoel Cervantes MD Primary Care Provider + [phone] Yoel Cervantes MD Primary Care Provider [phone] Suman Lu PA-C Primary Care Provider [phone] Chari Dee MD Unavailable [phone] Encounter Details Date Type Department Care Team Description 11/29/2011 Hospital Medical Records [address] [place] [address] Paco Yusuf MD Social History Tobacco Use [...] on filedocumented in this encounter Care Teams Rubber Factory Worker Relationship Specialty Start Date End Date Name, MD Luke PCP - General 12/02/08 09/21/14 Yoel Cervantes MD [address] [place] [address] 9[address] PCP - General Internal Medicine 06/24/15 12/21/20 Yoel Cervantes MD [address] [place] [address] 396[address] PCP - General 09/22/14 06/23/15 Suman Lu PA-C [address] [place] [address] [phone] PCP - General Internal Medicine 12/22/20 Chari Dee MD [address] [place] [address] [phone] Specialist Cardiology 07/25/23 documented as of this encounter
--- OUTSIDE RECORDS SUMMARY | 2024-12-04 13:55 | XMS_ITS | Encounter Summary ---
Author Organization [facility] Address [address] [place] [address] Care Team Providers Care Corporate Licensed Broker Name Role Phone Suman Lu PA-C Primary Care Provider [phone] Chari Dee MD Unavailable [phone] Reason for Visit * Reason Onset Date Comments Faxed Order 01/07/2022 Order #[id number] Encounter Details Date Type Department Care Team Description 01/07/2022 Telephone Adult Medicine [address] [phone] Suman Lu PA-C [address] [place] [address] [phone] Faxed Order (Order #[id number]) Social History Tobacco Use Types Packs/Day Years [...] was confirmed or suspected to have Coronavirus/COVID-19? Unable to assess 12/17/2021 3:21 PM EDT documented as of this encounter Miscellaneous Notes * Telephone Encounter - Diane Putnam - 01/07/2022 9:39 AM EDT Faxed order from [facility]. Order #[id number]. Please sign, date, and fax back. documented in this encounter Plan of Treatment Not on file documented as of this encounter Visit Diagnoses Not on filedocumented in this encounter Care Teams Corporate Licensed Broker Relationship Specialty Start Date End Date Suman Lu PA-C [address] [place] [address] PCP - General Internal Medicine 12/22/20 Chari Dee MD [address] [place] [address] Specialist Cardiology 07/25/23 documented as of this encounter
--- OUTSIDE RECORDS SUMMARY | 2024-12-04 13:55 | XMS_ITS | Encounter Summary ---
Author Organization [facility] Address [address] [place] [address] Care Team Providers Care Darklight Inspector Name Role Phone Yoel Cervantes MD Primary Care Provider [phone] Suman Lu PA-C Primary Care Provider [phone] Chari Dee MD Unavailable [phone] Encounter Details Date Type Department Care Team Description 07/06/2018 Release of Information Medical Records [address] [place], [place] [phone] Abstract, Provider Social History Tobacco Use Types [...] on filedocumented in this encounter Care Teams Darklight Inspector Relationship Specialty Start Date End Date Yoel Cervantes MD [address] [place] [address] [phone] PCP - General Internal Medicine 06/24/15 12/21/20 Suman Lu PA-C [address] [place] [address] [phone] PCP - General Internal Medicine 12/22/20 Chari Dee MD [address] [place] [address] Specialist Cardiology 07/25/23 documented as of this encounter
--- OUTSIDE RECORDS SUMMARY | 2024-12-04 13:55 | XMS_ITS | Encounter Summary ---
Author Organization [facility] Address [address] [place] [address] Care Team Providers Care Cat Operator Name Role Phone Suman Lu PA-C Primary Care Provider [phone] Chari Dee MD Unavailable [phone] Reason for Visit * Reason Onset Date Comments Faxed Order 12/15/2021 Order #[id number] Encounter Details Date Type Department Care Team Description 12/15/2021 Telephone Adult Medicine [address] [phone] Suman Lu PA-C [address] [place] [address] [phone] Faxed Order (Order #[id number]) Social History Tobacco Use Types Packs/Day Years [...] * Telephone Encounter - Diane Putnam - 12/15/2021 9:34 AM EDT Faxed order from [facility]. Order #[id number]. Please sign, date, and fax back. documented in this encounter Plan of Treatment Not on file documented as of this encounter Visit Diagnoses Not on filedocumented in this encounter Care Teams Cat Operator Relationship Specialty Start Date End Date Suman Lu PA-C [address] [place] [address] PCP - General Internal Medicine 12/22/20 Chari Dee MD [address] [place] [address] Specialist Cardiology 07/25/23 documented as of this encounter
--- OUTSIDE RECORDS SUMMARY | 2024-12-04 13:55 | XMS_ITS | Encounter Summary ---
Author Organization [facility] Address [address] [place] [address] Care Team Providers Care Freight Flow Sales Leader Name Role Phone Suman Lu PA-C Primary Care Provider [phone] Chari Dee MD Unavailable [phone] Reason for Visit * Reason Onset Date Comments refill request 12/23/2021 Encounter Details Date Type Department Care Team Description 12/23/2021 Telephone Adult Medicine [address] [phone] Suman Lu PA-C [address] [place] [address] [phone] refill request Social History Tobacco Use Types Packs/Day Years [...] encounter Miscellaneous Notes * Telephone Encounter - Osmin Oneil - 12/30/2021 9:09 AM EDT Please call pharmacy and confirm which scripts patient is requesting to be filled , as patient isntsure which ones except gabapentin and Insulin Glargine (Lantus SoloStar) 100 UNIT/ML Solution Pen-injector * Telephone Encounter - Osmin Oneil - 12/23/2021 12:14 PM EDT Patient would like script to be: E-PRESCRIBED/FAXED TO PHARMACY WHEN WAS THE PATIENT'S LAST APPOINTMENT IN ADULT MEDICINE? 07/21/21 WHEN WAS THE LAST TIME THE PATIENT SAW THEIR PCP? Same as above Does patient have an upcoming appointment? Yes 03/24/22 (THE MEDICATION REQUESTED IS ON THE MED LIST ABOVE) All of the medications requested were on the CURRENT MEDS list Did you check the Pharmacy information above?: YES Patient wants: 30 -day supply Is this a mail order prescription request ? NO If the refill is from a FAXED refill request what is the RX # listed on the fax? N/A Patients current insurance carrier is: Payor: [employer] MEDICARE FFS / Plan: [facility] MDCR-ADV PPO $0 [place] [id number] / Product Type: PPO [id number] Please call pharmacy and confirm which scripts patient is requesting to be filled , as patient isntsure which ones except gabapentin and Insulin Glargine (Lantus SoloStar) 100 UNIT/ML Solution Pen-injector documented in this encounter Plan of Treatment Not on file documented as of this encounter Visit Diagnoses Not on filedocumented in this encounter Care Teams Freight Flow Sales Leader Relationship Specialty Start Date End Date Suman Lu PA-C [address] [place] [address] PCP - General Internal Medicine 12/22/20 Chari Dee MD [address] [place] [address] Specialist Cardiology 07/25/23 documented as of this encounter
--- OUTSIDE RECORDS SUMMARY | 2024-12-04 13:55 | XMS_ITS | Encounter Summary ---
Author Organization [facility] Address [address] [place] [address] Care Team Providers Care Loan Analyst Name Role Phone Name, Luke ROPER Primary Care Provider Unavailabl e Yoel Cervantes MD Primary Care Provider + [phone] Yoel Cervantes MD Primary Care Provider + [phone] Suman Lu PA-C Primary Care Provider +[phone] Chari Dee MD Unavailable [phone] Encounter Details Date Type Department Care Team Description 09/10/2010 Hospital Medical Records [address] [place] [address] Carlyn Cameron Social History Tobacco Use Types Packs/Day Years [...] on filedocumented in this encounter Care Teams Loan Analyst Relationship Specialty Start Date End Date Name, MD Luke PCP - General 12/02/08 09/21/14 Yoel Cervantes MD [address] [place] [address] [phone] PCP - General Internal Medicine 06/24/15 12/21/20 Yoel Cervantes MD [address] [place] [address] PCP - General 09/22/14 06/23/15 Suman Lu PA-C [address] [place] [address] [phone] PCP - General Internal Medicine 12/22/20 Chari Dee MD [address] [place] [address] [phone] Specialist Cardiology 07/25/23 documented as of this encounter
--- OUTSIDE RECORDS SUMMARY | 2024-12-04 13:55 | XMS_ITS | Encounter Summary ---
Author Organization [facility] Address [address] [place] [address] Care Team Providers Care Press Operator Carbon Blocks Name Role Phone Suman Lu PA-C Primary Care Provider +[phone] Chari eDe MD Unavailable [phone] Encounter Details Date Type Department Care Team Description 01/28/2022 Hospital Medical Records [address] [place] [address] [facility] Social History Tobacco Use Types Packs/Day Years [...] on filedocumented in this encounter Care Teams Press Operator Carbon Blocks Relationship Specialty Start Date End Date Suman Lu PA-C [address] [place], [place] [phone] PCP - General Internal Medicine 12/22/20 Chari Dee MD [address] [place], [place] [phone] Specialist Cardiology 07/25/23 documented as of this encounter
--- OUTSIDE RECORDS SUMMARY | 2024-12-04 13:55 | XMS_ITS | Encounter Summary ---
Author Organization [facility] Address [address] [place] [address] Care Team Providers Care Surgical Services Manager Name Role Phone Suman Lu PA-C Primary Care Provider +[phone] Chari Dee MD Unavailable [phone] Reason for Visit * Reason Comments E-prescribe Rx Request Encounter Details Date Type Department Care Team Description 04/29/[address] [facility] [address] [facility] [address] [place] [phone] Cindy Luna PA-C [address] [facility] [address] [place] [address] E-prescribe Rx Request Social History Tobacco Use [...] on filedocumented in this encounter Care Teams Surgical Services Manager Relationship Specialty Start Date End Date Suman Lu PA-C [address] [place], [place] [phone] PCP - General Internal Medicine 12/22/20 Chari Dee MD [address] [place] [address] Specialist Cardiology 07/25/23 documented as of this encounter
--- OUTSIDE RECORDS SUMMARY | 2024-12-04 13:55 | XMS_ITS | Encounter Summary ---
Author Organization [facility] Address [address] [place] [address] Care Team Providers Care Senior Operations Analyst Name Role Phone Suman Lu PA-C Primary Care Provider [phone] Chari Dee MD Unavailable [phone] Reason for Visit * Reason Onset Date Comments medication problems 04/27/2022 Encounter Details Date Type Department Care Team Description 04/27/2022 Telephone Adult Medicine [address] [phone] Suman Lu PA-C [address] [place] [address] [phone] medication problems Social History Tobacco Use Types Packs/Day Years [...] encounter Miscellaneous Notes * Telephone Encounter - Luna Flores M.A. - 04/27/2022 12:32 PM EDT Please sign for Generic Pt ins will no longer cover Proair DX: Asthma * Telephone Encounter - Diane Putnam - 04/27/2022 12:24 PM EDT Who is calling? Faxed by [facility] Name of the medication ProAir HFA 108 (90 Base) MCG/ACT Aero Soln What is the specific problem or interaction? Alternative requested, please send as generic If the patient is having a problem with taking the med - how long has the problem been going on? N/A documented in this encounter Plan of Treatment Not on file documented as of this encounter Visit Diagnoses Not on filedocumented in this encounter Care Teams Senior Operations Analyst Relationship Specialty Start Date End Date Suman Lu PA-C [address] [place] [address] PCP - General Internal Medicine 12/22/20 Chari Dee MD [address] [place] [address] Specialist Cardiology 07/25/23 documented as of this encounter
--- OUTSIDE RECORDS SUMMARY | 2024-12-04 13:55 | XMS_ITS | Encounter Summary ---
Author Organization [facility] Address [address] [place] [address] Care Team Providers Care Senior Safety Support Manager Name Role Phone Yoel Cervantes MD Primary Care Provider [phone] Suman Lu PA-C Primary Care Provider [phone] Chari Dee MD Unavailable [phone] Reason for Visit * Reason Comments E-prescribe Rx Request Encounter Details Date Type Department Care Team Description 06/13/2017 Refill Adult Medicine [address] [phone] Yoel Cervantes MD [address] [place] [address] [phone] E-prescribe Rx Request Social History Tobacco Use [...] encounter Miscellaneous Notes * Telephone Encounter - Glenis Peña M.A. - 06/15/2017 10:11 AM EST Lab Results Component Value Date NA 144 05/19/2017 K 4.0 05/19/2017 CO2 25.1 05/19/2017 CL 103 05/19/2017 BUN 12 05/19/2017 CREAT 1.1 05/19/2017 GLU 231 05/19/2017 CA 9.7 05/19/2017 GFR > 60 05/19/2017 * Telephone Encounter - Sharon Montenegro - 06/14/2017 8:47 AM EST Patient would like script to be: E-PRESCRIBED/FAXED TO PHARMACY WHEN WAS THE PATIENT'S LAST APPOINTMENT IN ADULT MEDICINE? 05/25/17 WHEN WAS THE LAST TIME THE PATIENT [...] NO Patients current insurance carrier is: Payor: [facility] MEDICAID / Plan: [facility] MEDICAID HMO $0 SHEA / Product Type: HMO [id number] documented in this encounter Plan of Treatment Not on file documented as of this encounter Visit Diagnoses Not on filedocumented in this encounter Care Teams Senior Safety Support Manager Relationship Specialty Start Date End Date Yoel Cervantes MD [address] [place] [address] PCP - General Internal Medicine 06/24/15 12/21/20 Suman Lu PA-C [address] [place] [address] PCP - General Internal Medicine 12/22/20 Chari Dee MD [address] [place] [address] Specialist Cardiology 07/25/23 documented as of this encounter
--- OUTSIDE RECORDS SUMMARY | 2024-12-04 13:55 | XMS_ITS | Encounter Summary ---
Author Organization [facility] Address [address] [place] [address] Care Team Providers Care Life Skills Educator Name Role Phone Suman Lu PA-C Primary Care Provider +[phone] Chari Dee MD Unavailable [phone] Reason for Visit * Reason Onset Date Comments [facility] Call 12/01/2021 Encounter Details Date Type Department Care Team Description 12/01/2021 Telephone Triage [address] [place], [place] [phone] Suman Lu PA-C [address] [place], [place] [phone] [facility]NA Call Social History Tobacco Use Types [...] Telephone Encounter - Suman Lu PA-C - 12/01/2021 5:19 PM EDT Noted. * Telephone Encounter - Sree Toledo L.P.N. - 12/01/2021 4:15 PM EDT See FYI from [facility] * Telephone Encounter - Cindy Black - 12/01/2021 3:33 PM EDT [facility]NA CALL Which [facility] office is calling? Ina Sanchez Full name of caller: Tash The caller is A nurse Is the caller at the patients home?: NO Reason for call: FYI only - Patient has increased right knee pain - on pain scale 8/10 - also had apoor nights sleep because his cpap mask was broken - was able to replace the mask and he should be getting rest tonight - also states vitals are within normal limits Does caller need an urgent call back? NO Was CONTACT Telephone # obtained above?: YES Fax #: n/a documented in this encounter Plan of Treatment Not on file documented as of this encounter Visit Diagnoses Not on filedocumented in this encounter Care Teams Life Skills Educator Relationship Specialty Start Date End Date Suman Lu PA-C [address] [place] [address] PCP - General Internal Medicine 12/22/20 Chari Dee MD [address] [place] [address] Specialist Cardiology 07/25/23 documented as of this encounter
--- OUTSIDE RECORDS SUMMARY | 2024-12-04 13:55 | XMS_ITS | Encounter Summary ---
Author Organization [facility] Address [address] [place] [address] Care Team Providers Care Refrigeration System Installer Name Role Phone Suman Lu PA-C Primary Care Provider [phone] Chari Dee MD Unavailable [phone] Encounter Details Date Type Department Care Team Description 10/16/2021 Hospital Medical Records [address] [place] [address] Jessa Musa PA-C Social History Tobacco Use Types Packs/Day Years [...] Recorded In the last 10 days, have cj lee been in contact with someone who was confirmed or suspected to have Coronavirus/COVID-19? No / Unsure 10/11/2021 4:07 PM EDT documented as of this encounter Plan of Treatment Not on file documented as of this encounter Visit Diagnoses Not on filedocumented in this encounter Care Teams Refrigeration System Installer Relationship Specialty Start Date End Date Suman Lu PA-C [address] [place], [place] [phone] PCP - General Internal Medicine 12/22/20 Chari Dee MD [address] [place] [address] Specialist Cardiology 07/25/23 documented as of this encounter
--- OUTSIDE RECORDS SUMMARY | 2024-12-04 13:55 | XMS_ITS | Encounter Summary ---
Author Organization [facility] Address [address] [place] [address] Care Team Providers Care Rotor Casting Machine Setup Operator Name Role Phone Suman Lu PA-C Primary Care Provider [phone] Chari Dee MD Unavailable [phone] Encounter Details Date Type Department Care Team Description 05/25/2022 Hospital Medical Records [address] [place] [address] Matt Bynum Social History Tobacco Use Types Packs/Day Years [...] on filedocumented in this encounter Care Teams Rotor Casting Machine Setup Operator Relationship Specialty Start Date End Date Suman Lu PA-C [address] [place], [place] [phone] PCP - General Internal Medicine 12/22/20 Chari Dee MD [address] [place], [place] [phone] Specialist Cardiology 07/25/23 documented as of this encounter
--- OUTSIDE RECORDS SUMMARY | 2024-12-04 13:55 | XMS_ITS | Encounter Summary ---
Author Organization [facility] Address [address] [place] [address] Care Team Providers Care Computer Technology Instructor Name Role Phone Suman Lu PA-C Primary Care Provider [phone] Chari Dee MD Unavailable [phone] Reason for Visit * Reason Onset Date Comments APPOINTMENT 10/14/2021 Encounter Details Date Type Department Care Team Description 10/14/2021 Telephone Pulmonology - [place] [address] [address] Cherelle Cody MD 175 [facility] 200 [place] [address] APPOINTMENT Social History Tobacco Use Types Packs/Day Years [...] encounter Miscellaneous Notes * Telephone Encounter - Cindi Sandra - 10/14/2021 1:48 PM EDT Left a vm for pt to call back to book his [address] follow up [address] Cody. Provider has appt available on January 03 please schedule pt for a follow up. I also left on vm if pt does not received his machine between these month to call [facility] for status # [phone] or call us to see CPAP machine status. Any [place] ext [phone] documented in this encounter Plan of Treatment Not on file documented as of this encounter Visit Diagnoses Not on filedocumented in this encounter Care Teams Computer Technology Instructor Relationship Specialty Start Date End Date Suman Lu PA-C [address] [place] [address] PCP - General Internal Medicine 12/22/20 Chari Dee MD [address] [place] [address] Specialist Cardiology 07/25/23 documented as of this encounter
--- OUTSIDE RECORDS SUMMARY | 2024-12-04 13:55 | XMS_ITS | Encounter Summary ---
Author Organization [facility] Address [address] [place] [address] Care Team Providers Care Electrical Logging Engineer Name Role Phone Suman Lu PA-C Primary Care Provider +[phone] -[phone] Chari Dee MD Unavailable [phone] Reason for Visit * Reason Onset Date Comments Faxed Order 12/30/2021 Order #[id number] Encounter Details Date Type Department Care Team Description 12/30/2021 Telephone Adult Medicine [address] [phone] Suman Lu PA-C [address] [place] [address] [phone] Faxed Order (Order #[id number]) Social History Tobacco Use Types Packs/Day Years [...] * Telephone Encounter - Diane Putnam - 12/30/2021 10:47 AM EDT Faxed order from [facility]. Order #[id number]. Please sign, date, and fax back. documented in this encounter Plan of Treatment Not on file documented as of this encounter Visit Diagnoses Not on filedocumented in this encounter Care Teams Electrical Logging Engineer Relationship Specialty Start Date End Date Suman Lu PA-C [address] [place] [address] PCP - General Internal Medicine 12/22/20 Chari Dee MD [address] [place] [address] Specialist Cardiology 07/25/23 documented as of this encounter
--- OUTSIDE RECORDS SUMMARY | 2024-12-04 13:55 | XMS_ITS | Encounter Summary ---
Author Organization [facility] Address [address] [place] [address] Care Team Providers Care Test And Research Reactor Operator Name Role Phone Suman Lu PA-C Primary Care Provider [phone] -[phone] Chari Dee MD Unavailable [phone] Encounter Details Date Type Department Care Team Description 03/31/2022 Telephone Pulmonology - [place] 175 [facility] 200 [place] [address] Cherelle Cody MD 175 [facility] [address] [place] [id number] Social History Tobacco Use Types Packs/Day Years [...] suspected to have Coronavirus/COVID-19? No / Unsure 03/17/2022 2:12 PM EDT documented as of this encounter Plan of Treatment Not on file documented as of this encounter Visit Diagnoses Not on filedocumented in this encounter Care Teams Test And Research Reactor Operator Relationship Specialty Start Date End Date Suman Lu PA-C [address] [place] [address] PCP - General Internal Medicine 12/22/20 Chari Dee MD [address] [place] [address] Specialist Cardiology 07/25/23 documented as of this encounter
--- OUTSIDE RECORDS SUMMARY | 2024-12-04 13:56 | XMS_ITS | Encounter Summary ---
Author Organization [facility] Address [address] [place] [address] Care Team Providers Care Copper Plate Printer Name Role Phone Suman Lu PA-C Primary Care Provider [phone] Chari Dee MD Unavailable [phone] Encounter Details Date Type Department Care Team Description 06/16/2023 SCAN Cardio [facility] [address] [place] [address] Abstract, Provider Social History Tobacco Use Types [...] In the last 10 days, have cj u been in contact with someone who was confirmed or suspected to have Coronavirus/COVID-19? No / Unsure 05/22/2023 1:02 PM EST documented as of this encounter Plan of Treatment Not on file documented as of this encounter Visit Diagnoses Not on filedocumented in this encounter Care Teams Copper Plate Printer Relationship Specialty Start Date End Date Suman Lu PA-C [address] [place] [address] PCP - General Internal Medicine 12/22/20 Chari Dee MD [address] [place] [address] Specialist Cardiology 07/25/23 documented as of this encounter
--- OUTSIDE RECORDS SUMMARY | 2024-12-04 13:56 | XMS_ITS | Encounter Summary ---
Author Organization [facility] Address [address] [place] [address] Care Team Providers Care Gyn Physician Name Role Phone Suman Lu PA-C Primary Care Provider [phone] Chari Dee MD Unavailable [phone] Encounter Details Date Type Department Care Team Description 05/30/2022 Hospital Medical Records [address] [place] [address] Aguila Silveira Np Social History Tobacco Use Types Packs/Day Years [...] on filedocumented in this encounter Care Teams Gyn Physician Relationship Specialty Start Date End Date Suman Lu PA-C [address] [place], [place] [phone] PCP - General Internal Medicine 12/22/20 Chari Dee MD [address] [place], [place] [phone] Specialist Cardiology 07/25/23 documented as of this encounter
--- OUTSIDE RECORDS SUMMARY | 2024-12-04 13:56 | XMS_ITS | Encounter Summary ---
Author Organization [facility] Address [address] [place] [address] Care Team Providers Care Bullet Slug Casting Machine Operator Name Role Phone Suman Lu PA-C Primary Care Provider +[phone] -[phone] Chari Dee MD Unavailable Encounter Details Date Type Department Care Team Description 05/11/2023 Telephone Adult Medicine [address] [phone] Suman Lu PA-C [address] [place] [address] [phone] Social History Tobacco Use Types Packs/Day Years [...] encounter Miscellaneous Notes * Telephone Encounter - Sree Toledo L.P.N. - 05/22/2023 10:58 AM EST [facility] called unable to open case patient not answering the phone or door Case pending * Telephone Encounter - Sree Toledo L.P.N. - 05/11/2023 1:15 PM EDT Vo given to Josie soria [facility] ( [facility] ) Information faxed * Telephone Encounter - Suman Lu PA-C - 05/11/2023 12:36 PM EDT Okay for verbal order * Telephone Encounter - Sree Toledo L.P.NToribio - 05/11/2023 10:41 AM EDT Leeann PRESLEYA called requesting VO for med management not giving the meds correctly Pleas christian and advise Ok to wait documented in this encounter Plan of Treatment Not on file documented as of this encounter Visit Diagnoses Not on filedocumented in this encounter Care Teams Bullet Slug Casting Machine Operator Relationship Specialty Start Date End Date Suman Lu PA-C [address] [place] [address] PCP - General Internal Medicine 12/22/20 Chari Dee MD [address] [place] [address] Specialist Cardiology 07/25/23 documented as of this encounter
--- OUTSIDE RECORDS SUMMARY | 2024-12-04 13:56 | XMS_ITS | Encounter Summary ---
Author Organization [facility] Address [address] [place] [address] Care Team Providers Care Executive Legal Secretary Name Role Phone Yoel Cervantes MD Primary Care Provider [phone] Suman Lu PA-C Primary Care Provider [phone] Chari Dee MD Unavailable [phone] Reason for Visit * Reason Onset Date Comments APPOINTMENT 10/29/2018 Encounter Details Date Type Department Care Team Description 10/29/2018 Telephone Gastroenterology - [address] [place] [phone] Jeremy Florentino MD APPOINTMENT Social History Tobacco Use Types Packs/Day [...] encounter Miscellaneous Notes * Telephone Encounter - Marisa Sandy - 10/29/2018 12:41 PM EDT Patient calling to schedule his GI endoscopy, duodenal biopsies, colonoscopy with random colonic biopsies. Please call and schedule when you have a min. Thank you documented in this encounter Plan of Treatment Not on file documented as of this encounter Visit Diagnoses Not on filedocumented in this encounter Care Teams Executive Legal Secretary Relationship Specialty Start Date End Date Yoel Cervantes MD [address] [place] [address] PCP - General Internal Medicine 06/24/15 12/21/20 Suman Lu PA-C [address] [place] [address] [phone] PCP - General Internal Medicine 12/22/20 Chari Dee MD [address] [place] [address] [phone] Specialist Cardiology 07/25/23 documented as of this encounter
--- OUTSIDE RECORDS SUMMARY | 2024-12-04 13:56 | XMS_ITS | Encounter Summary ---
Author Organization [facility] Address [address] [place] [address] Care Team Providers Care Director Volunteer Services Name Role Phone Suman Lu PA-C Primary Care Provider [phone] Chari Dee MD Unavailable [phone] Reason for Visit * Reason Onset Date Comments Faxed Order 08/16/2022 06/06/2022-08/04 Encounter Details Date Type Department Care Team Description 08/16/2022 Telephone Adult Medicine [address] [address] Suman uL PA-C [address] [place] [address] Faxed Order (06/06/2022-08/04/2022 ) Social History Tobacco Use Types Packs/Day Years [...] on filedocumented in this encounter Care Teams Director Volunteer Services Relationship Specialty Start Date End Date Suman Lu PA-C [address] [place] [address] PCP - General Internal Medicine 12/22/20 Chari Dee MD [address] [place] [address] Specialist Cardiology 07/25/23 documented as of this encounter
--- OUTSIDE RECORDS SUMMARY | 2024-12-04 13:56 | XMS_ITS | Encounter Summary ---
Author Organization [facility] Address [address] [place] [address] Care Team Providers Care Quill Stripper Name Role Phone Suman Lu PA-C Primary Care Provider [phone] Chari Dee MD Unavailable [phone] Encounter Details Date Type Department Care Team Description 07/25/2023 SCAN Medical Records [address] [place] [address] [facility] Social History Tobacco Use Types Packs/Day Years [...] on filedocumented in this encounter Care Teams Quill Stripper Relationship Specialty Start Date End Date Suman Lu PA-C [address] [place], [place] [phone] PCP - General Internal Medicine 12/22/20 Chari Dee MD [address] [place], [place] [phone] Specialist Cardiology 07/25/23 documented as of this encounter
--- OUTSIDE RECORDS SUMMARY | 2024-12-04 13:56 | XMS_ITS | Encounter Summary ---
Author Organization [facility] Address [address] [place] [address] Care Team Providers Care Plate Shop Helper Name Role Phone Yoel Cervantes MD Primary Care Provider [phone] Suman Lu PA-C Primary Care Provider [phone] Chari Dee MD Unavailable [phone] Encounter Details Date Type Department Care Team Description 07/26/2019 Fish Hatchery Worker Report Medical Records [address] [place] [address] Roosevelt Villalobos NP Social History Tobacco Use Types Packs/Day Years [...] on filedocumented in this encounter Care Teams Plate Shop Helper Relationship Specialty Start Date End Date Yoel Cervantes MD [address] [place] [address] [phone] PCP - General Internal Medicine 06/24/15 12/21/20 Suman Lu PA-C [address] [place] [address] [phone] PCP - General Internal Medicine 12/22/20 Chari Dee MD [address] [place] [address] Specialist Cardiology 07/25/23 documented as of this encounter
--- OUTSIDE RECORDS SUMMARY | 2024-12-04 13:56 | XMS_ITS | Encounter Summary ---
Author Organization [facility] Address [address] [place] [address] Care Team Providers Care Exterminator Termite Name Role Phone Suman Lu PA-C Primary Care Provider [phone] Chari Dee MD Unavailable [phone] Reason for Visit * Reason Comments E-prescribe Rx Request Encounter Details Date Type Department Care Team Description 10/31/2022 Refill Respiratory and Diabetes Medicaid/ACO Pharmacist [address] [place] [address] Suman Lu PA-C [address] [place], [place] [phone] E-prescribe Rx Request Social History Tobacco Use [...] encounter Miscellaneous Notes * Telephone Encounter - Ira Figueroa M.A. - 11/15/2022 8:35 AM EDT Lab Results Component Value Date CHOL 125 06/22/2022 LDL 55 06/22/2022 HDL 38 06/22/2022 TRIG 164 06/22/2022 SGOT 21 06/22/2022 SGPT 48 06/22/2022 SHERIN 06/22/22 - PCP- Hospital f/u *Last 3 appts - PT No Show x 2 and PT cancel x 1. NOV 11/25/22 - PCP * Telephone Encounter - Diane Putnam - 11/14/2022 10:49 AM EDT Patient would like script to be: E-PRESCRIBED/FAXED TO PHARMACY WHEN WAS THE PATIENT'S LAST APPOINTMENT IN ADULT MEDICINE? 06/22/22 WHEN WAS THE LAST TIME THE PATIENT SAW THEIR PCP? Same as above Does patient have an upcoming appointment? Yes 11/25/22 (THE MEDICATION REQUESTED IS ON THE MED LIST ABOVE) All of the medications requested were on the CURRENT MEDS list Did you check the Pharmacy information above?: YES Patient wants: 90 -day supply Is this a mail order prescription request ? NO If the refill is from a FAXED refill request what is the RX # listed on the fax? N/A Patients current insurance carrier is: Payor: [facility] MEDICARE FFS / Plan: [facility] MDCR-ADV PPO $0 [place] [id number] / Product Type: PPO [id number] documented in this encounter Plan of Treatment Not on file documented as of this encounter Visit Diagnoses Not on filedocumented in this encounter Care Teams Exterminator Termite Relationship Specialty Start Date End Date Suman Lu PA-C [address] [place] [address] PCP - General Internal Medicine 12/22/20 Chari Dee MD [address] [place] [address] Specialist Cardiology 07/25/23 documented as of this encounter
--- OUTSIDE RECORDS SUMMARY | 2024-12-04 13:56 | XMS_ITS | Encounter Summary ---
Author Organization [facility] Address [address] [place] [address] Care Team Providers Care Prepress Stripper Name Role Phone Yoel Cervantes MD Primary Care Provider [phone] Suman Lu PA-C Primary Care Provider [phone] Chari Dee MD Unavailable [phone] Encounter Details Date Type Department Care Team Description 11/07/2018 Hospital Medical Records [address] [place] [address] Jeremy Florentino MD Social History Tobacco Use Types Packs/Day [...] on filedocumented in this encounter Care Teams Prepress Stripper Relationship Specialty Start Date End Date Yoel Cervantes MD [address] [place] [address] [phone] PCP - General Internal Medicine 06/24/15 12/21/20 Suman Lu PA-C [address] [place] [address] [phone] PCP - General Internal Medicine 12/22/20 Chari Dee MD [address] [place] [address] Specialist Cardiology 07/25/23 documented as of this encounter
--- OUTSIDE RECORDS SUMMARY | 2024-12-04 13:56 | XMS_ITS | Encounter Summary ---
Author Organization [facility] Address [address] [place] [address] Care Team Providers Care Merchandising Consultant Name Role Phone Luke Galvan MD Primary Care Provider Unavailabl e Yoel Cervantes MD Primary Care Provider + [phone] Yoel Cervantes MD Primary Care Provider [phone] Suman Lu PA-C Primary Care Provider [phone] Chari Dee MD Unavailable [phone] Reason for Visit * Reason Onset Date Comments APPOINTMENT 02/15/2013 Encounter Details Date Type Department Care Team Description 02/15/2013 Telephone Adult Medicine [address] [phone] Name, MD Luke APPOINTMENT Social History Tobacco Use Types Packs/Day [...] encounter Miscellaneous Notes * Telephone Encounter - Carol Amaya R.N. - 02/15/2013 4:27 PM EDT Pt booked for 03/01 at 3:[address] galvan, message left for pt to call. He will need to confirm appointment or be rescheduled with triage. * Telephone Encounter - Deidra Elias - 02/15/2013 2:17 PM EDT Patient is leaving today to go [place] the beach till monday, patient needs to be with Dr. Galvan only , for follow up on 03/01/13 if possible, anytime after 10:00, leave message on machine if no answer. Thank you. documented in this encounter Plan of Treatment Not on file documented as of this encounter Visit Diagnoses Not on filedocumented in this encounter Care Teams Merchandising Consultant Relationship Specialty Start Date End Date Name, MD Luke PCP - General 12/02/08 09/21/14 Yoel Cervantes MD [address] [place] [address] PCP - General Internal Medicine 06/24/15 12/21/20 Yoel Cervantes MD [address] [place] [address] PCP - General 09/22/14 06/23/15 Suman Lu PA-C [address] [place] [address] PCP - General Internal Medicine 12/22/20 Chari Dee MD [address] [place] [address] Specialist Cardiology 07/25/23 documented as of this encounter
--- OUTSIDE RECORDS SUMMARY | 2024-12-04 13:56 | XMS_ITS | Encounter Summary ---
Author Organization [facility] Address [address] [place] [address] Care Team Providers Care Educational Therapist Name Role Phone Yoel Cervantes MD Primary Care Provider + [phone] Suman Lu PA-C Primary Care Provider [phone] Chari Dee MD Unavailable [phone] Encounter Details Date Type Department Care Team Description 11/09/2018 Orders Only Medical Records [address] [place] [address] Jeremy Florentino MD Social History Tobacco Use [...] on file documented as of this encounter Procedures Procedure Name Priority Date/Time Associated Diagnosis Comments OUTSIDE PATHOLOGY Routine 11/07/2018 documented in this encounter Results * OUTSIDE PATHOLOGY (11/07/2018) Jeremy Florentino MD OUTSIDE LAB documented in this encounter Visit Diagnoses Not on filedocumented in this encounter Care Teams Educational Therapist Relationship Specialty Start Date End Date Yoel Cervantes MD [address] [place] [address] PCP - General Internal Medicine 06/24/15 12/21/20 Suman Lu PA-C [address] [place], [place] [phone] PCP - General Internal Medicine 12/22/20 Chari Dee MD [address] [place], [place] [phone] Specialist Cardiology 07/25/23 documented as of this encounter
--- OUTSIDE RECORDS SUMMARY | 2024-12-04 13:56 | XMS_ITS | Encounter Summary ---
Author Organization [facility] Address [address] [place] [address] Care Team Providers Care Senior Sourcing Manager Name Role Phone Yoel Cervantes MD Primary Care Provider [phone] Suman Lu PA-C Primary Care Provider +[phone] Chari Dee MD Unavailable [phone] Encounter Details Date Type Department Care Team Description 04/03/2019 Real Estate Sales Agent Report Medical Records [address] [place], [place] [id number] Abstract, Provider Social History Tobacco Use Types [...] filedocumented in this encounter Care Teams Senior Sourcing Manager Relationship Specialty Start Date End Date Yoel Cervantes MD [address] [place] [address] [phone] PCP - General Internal Medicine 06/24/15 12/21/20 Suman Lu PA-C [address] [place] [address] [phone] PCP - General Internal Medicine 12/22/20 Chari Dee MD [address] [place] [address] Specialist Cardiology 07/25/23 documented as of this encounter
--- OUTSIDE RECORDS SUMMARY | 2024-12-04 13:56 | XMS_ITS | Encounter Summary ---
Author Organization [facility] Address [address] [place] [address] Care Team Providers Care Frame Carver Spindle Name Role Phone Name, Luke ROPER Primary Care Provider Unavailabl e Yoel Cervantes MD Primary Care Provider + [phone] Yoel Cervantes MD Primary Care Provider + [phone] Suman Lu PA-C Primary Care Provider [phone] Chari Dee MD Unavailable [phone] Reason for Visit * Reason Comments E-prescribe Rx Request Encounter Details Date Type Department Care Team Description 04/18/2013 Refill Adult Medicine [address] [id number] Sam Guerrero[address] [phone] E-prescribe Rx Request Social History Tobacco Use [...] encounter Miscellaneous Notes * Telephone Encounter - Joanne Duque - 04/18/2013 4:27 PM EDT Left message for the pt to call the office * Telephone Encounter - Cecilia Churchill M.A. - 04/18/2013 4:13 PM EDT Not on meds list. If pt is sick he needs to be seen * Telephone Encounter - Joanne Duque - 04/18/2013 2:21 PM EDT Patient would like script to be: E-PRESCRIBED/FAXED TO PHARMACY WHEN WAS THE PATIENT'S LAST APPOINTMENT IN ADULT MEDICINE? 03/11/2013 WHEN WAS THE LAST TIME THE PATIENT SAW THEIR PCP? 02/15/2013 Does patient have an upcoming appointment? No-unable to reach left voicemaill to call for appointment due to refill request. Appt due (THE MEDICATION REQUESTED IS ON THE MED LIST ABOVE) All of the medications requested were on the CURRENT MEDS list Did you check the Pharmacy information above?: YES Patient wants: 30 -day supply Is this a mail order prescription request ? NO Patients current insurance carrier is: [facility] Plan: FFS HMO $0 [id number] Product Type: MEDICAID RISK documented in this encounter Plan of Treatment Not on file documented as of this encounter Visit Diagnoses Not on filedocumented in this encounter Care Teams Frame Carver Spindle Relationship Specialty Start Date End Date Name, MD Luke PCP - General 12/02/08 09/21/14 Yoel Cervantes MD [address] [place] [address] PCP - General Internal Medicine 06/24/15 12/21/20 Yoel Cervantes MD [address] [place] [address] [phone] PCP - General 09/22/14 06/23/15 Suman Lu PA-C [address] [place] [address] [id number] PCP - General Internal Medicine 12/22/20 Chari Dee MD [address] [place] [address] [phone] Specialist Cardiology 07/25/23 documented as of this encounter
--- OUTSIDE RECORDS SUMMARY | 2024-12-04 13:56 | XMS_ITS | Encounter Summary ---
Author Organization [facility] Address [address] [place] [address] Care Team Providers Care Manager Investigations Name Role Phone Name, Luke ROPER Primary Care Provider Unavailabl e Yoel Cervantes MD Primary Care Provider + [phone] Yoel Cervantes MD Primary Care Provider + [phone] Suman Lu PA-C Primary Care Provider [phone] Chari Dee MD Unavailable [phone] Encounter Details Date Type Department Care Team Description 05/04/2011 Release of Information Medical Records [address] [place] [address] Abstract, Provider Social History Tobacco Use Types [...] on filedocumented in this encounter Care Teams Manager Investigations Relationship Specialty Start Date End Date Name, MD Luke PCP - General 12/02/08 09/21/14 Yoel Cervantes MD [address] [place], [place] [phone] PCP - General Internal Medicine 06/24/15 12/21/20 Yoel Cervantes MD [address] [place] [address] PCP - General 09/22/14 06/23/15 Suman Lu PA-C [address] [place] [address] [phone] PCP - General Internal Medicine 12/22/20 Chari Dee MD [address] [place] [address] [phone] Specialist Cardiology 07/25/23 documented as of this encounter
--- OUTSIDE RECORDS SUMMARY | 2024-12-04 13:56 | XMS_ITS | Encounter Summary ---
Author Organization [facility] Address [address] [place] [address] Care Team Providers Care Assistant Boys Track Coach Name Role Phone Suman Lu PA-C Primary Care Provider [phone] Chari Dee MD Unavailable [phone] Reason for Visit * Reason Onset Date Comments VNA Call 06/17/2022 Encounter Details Date Type Department Care Team Description 06/17/2022 Telephone Triage [address] [place], [place] [phone] Suman Lu PA-C [address] [place], [place] [phone] VNA Call Social History Tobacco Use Types [...] Telephone Encounter - Sree Toledo L.P.N. - 06/17/2022 1:11 PM EST Left a detailed message on Chris (+ID) VM Read message below * Telephone Encounter - Suman Lu PA-C - 06/17/2022 1:06 PM EST Looks like he does carry a diagnosis of CHF per last hospital notes. Monitoring the weight daily might be helpful. Fluid restriction could be considered as well * Telephone Encounter - Sree Toledo L.P.N. - 06/17/2022 1:00 PM EST Patient has an appt 06/22 with Lance KENNEDY Please review message below from VNA and advise * Telephone Encounter - Cindy Black - 06/17/2022 11:00 AM EST VNA CALL Which VNA office is calling? stevie Full name of caller: mann The caller is An Occupational Therapist Is the caller at the patients home?: NO Reason for call: would like to verify patient diagnosis of chf, would also like to know if patient should be monitoring his weight daily and are there restrictions as far a fluid intake like 1 1/2 or2 liter daily. If not should he promote this to patient ?? Does caller need an urgent call back? NO Was CONTACT Telephone # obtained above?: YES Fax #: n/a documented in this encounter Plan of Treatment Not on file documented as of this encounter Visit Diagnoses Not on filedocumented in this encounter Care Teams Assistant Boys Track Coach Relationship Specialty Start Date End Date Suman Lu PA-C [address] [place] [address] PCP - General Internal Medicine 12/22/20 Chari Dee MD [address] [place] [address] Specialist Cardiology 07/25/23 documented as of this encounter
--- OUTSIDE RECORDS SUMMARY | 2024-12-04 13:56 | XMS_ITS | Encounter Summary ---
Author Organization [facility] Address [address] [place] [address] Care Team Providers Care Security Vehicle Patrol Officer Name Role Phone Suman Lu PA-C Primary Care Provider [phone] Chari Dee MD Unavailable [phone] Reason for Visit * Reason Onset Date Comments Reschedule 10/14/2021 Encounter Details Date Type Department Care Team Description 10/14/2021 Telephone Vascular Surgery - [place] [address] [place] [address] Nguyen Davis PA-C [address] [place] [address] Reschedule Social History Tobacco Use Types Packs/Day Years [...] encounter Miscellaneous Notes * Telephone Encounter - Kristen Gaitan - 11/15/2021 1:11 PM EDT Another message left on vm for patient to call back * Telephone Encounter - Dorcas Adam - 10/22/2021 12:02 PM EDT Called spoke with son, states patients will call us back to schedule f/u after imaging * Telephone Encounter - Dorcas Adam - 10/14/2021 11:22 AM EDT Called lvm to cb to schedule f/u for after imaging appt * Telephone Encounter - Shawn Veloz M.A. - 10/14/2021 9:13 AM EDT Cancelled 10/21/21 appt, please reschedule for after his imaging on 11/25/21. documented in this encounter Plan of Treatment Not on file documented as of this encounter Visit Diagnoses Not on filedocumented in this encounter Care Teams Security Vehicle Patrol Officer Relationship Specialty Start Date End Date Suman Lu PA-C [address] [place] [address] PCP - General Internal Medicine 12/22/20 Chari Dee MD [address] [place] [address] Specialist Cardiology 07/25/23 documented as of this encounter
--- OUTSIDE RECORDS SUMMARY | 2024-12-04 13:56 | XMS_ITS | Encounter Summary ---
Author Organization [facility] Address [address] [place] [address] Care Team Providers Care Bilingual Speech Language Pathologist Name Role Phone Suman Lu PA-C Primary Care Provider [phone] Chari Dee MD Unavailable [phone] Encounter Details Date Type Department Care Team Description 06/06/2022 Home Health Certification Medical Records [address] [place] [address] Social History Tobacco Use Types Packs/Day Years [...] on filedocumented in this encounter Care Teams Bilingual Speech Language Pathologist Relationship Specialty Start Date End Date Suman Lu PA-C [address] [place], [place] [phone] PCP - General Internal Medicine 12/22/20 Chari Dee MD [address] [place], [place] [phone] Specialist Cardiology 07/25/23 documented as of this encounter
--- OUTSIDE RECORDS SUMMARY | 2024-12-04 13:56 | XMS_ITS | Encounter Summary ---
Author Organization [facility] Address [address] [place] [address] Care Team Providers Care Children'S Book Author Name Role Phone Yoel Cervantes MD Primary Care Provider [phone] Suman Lu PA-C Primary Care Provider [phone] Chari Dee MD Unavailable [phone] Encounter Details Date Type Department Care Team Description 12/23/2018 Glass Cut Off Supervisor Report Medical Records [address] [place], [place] [phone] Abstract, Provider Social History Tobacco Use Types [...] on filedocumented in this encounter Care Teams Children'S Book Author Relationship Specialty Start Date End Date Yoel Cervantes MD [address] [place] [address] [phone] PCP - General Internal Medicine 06/24/15 12/21/20 Suman Lu PA-C [address] [place] [address] [phone] PCP - General Internal Medicine 12/22/20 Chari Dee MD [address] [place] [address] Specialist Cardiology 07/25/23 documented as of this encounter
--- OUTSIDE RECORDS SUMMARY | 2024-12-04 13:56 | XMS_ITS | Encounter Summary ---
Author Organization [facility] Address [address] [place] [address] Care Team Providers Care Set Up Technician Name Role Phone Name, Luke ROPER Primary Care Provider Unavailabl e Yoel Cervantes MD Primary Care Provider + [phone] Yoel Cervantes MD Primary Care Provider + [phone] Suman Lu PA-C Primary Care Provider [phone] Chari Dee MD Unavailable [phone] Encounter Details Date Type Department Care Team Description 11/01/2010 Beater Out Leveling Machine Report Medical Records [address] [place] [address] Vidal Yen MD Social History Tobacco Use Types Packs/Day [...] on filedocumented in this encounter Care Teams Set Up Technician Relationship Specialty Start Date End Date Name, MD Luke PCP - General 12/02/08 09/21/14 Yoel Cervantes MD [address] [place] [address] [phone] PCP - General Internal Medicine 06/24/15 12/21/20 Yoel Cervantes MD [address] [place] [address] PCP - General 09/22/14 06/23/15 Suman Lu PA-C [address] [place] [address] [phone] PCP - General Internal Medicine 12/22/20 Chari Dee MD [address] [place] [address] [phone] Specialist Cardiology 07/25/23 documented as of this encounter
--- OUTSIDE RECORDS SUMMARY | 2024-12-04 13:56 | XMS_ITS | Encounter Summary ---
Author Organization [facility] Address [address] [place] [address] Care Team Providers Care Imaging Technician Name Role Phone Suman Lu PA-C Primary Care Provider [phone] Chari Dee MD Unavailable [phone] Reason for Visit * Reason Onset Date Comments Medication 02/01/2023 anxiety 02/01/2023 Encounter Details Date Type Department Care Team Description 02/01/2023 Telephone Adult Medicine [address] [phone] Suman Lu PA-C [address] [place] [address] [phone] Medication; anxiety Social History Tobacco Use Types Packs/Day Years [...] encounter Miscellaneous Notes * Telephone Encounter - Keyla Felix M.A. - 02/03/2023 2:48 PM EDT Called and s/w Dragan's December. She is aware of Rx and states she already picked it up from the pharmacy * Telephone Encounter - Colette Knapp C.M.A - 02/02/2023 1:17 PM EDT [phone] (home) [phone] (work) Lvm for pt to return call. Please inform rx has been sent to pharmacy. * Telephone Encounter - Suman Lu PA-C - 02/01/2023 4:27 PM EDT Sure I can do that. We will send Rx. I believe he is taking 200 mg twice a day * Telephone Encounter - Amber Rao R.N. - 02/01/2023 3:55 PM EDT Please advise * Telephone Encounter - Barb Gan - 02/01/2023 3:40 PM EDT Symptoms patient is presenting: Patient's is calling in regards to lamotrigine (LAMICTAL) 200 MG tablet. Patient is out, and is unable to reach DR to refill. Is requesting to see if PCP can filluntil he is able to reach DR. Patient has been showing symptoms of antsiness. is afraid patient will spiral out. Has been off medication for 2 days. For ALL patients calling to schedule any appointment (routine, sick visit, follow up, consult, etc.) in the outpatient setting please ask the following questions: ?? Do you have fever of higher than 101, sore throat with difficulty swallowing or severe shortnessof breath? NO If YES to any of these above symptoms, send a message to triage and do not book. Red dot. If no, an audio or video visit should be booked. ?? Have you had close contact with someone with Coronavirus in the last 14 days? NO ?? Have you traveled abroad? NO ?? Have you traveled recently to another state outside of [place], [place], [place], [place], [place], [place], [place]? NO o If yes, did you quarantine for 14 days or have a negative covid test? NO If yes to any of the above, patient is not to be scheduled in office until after 14 day quarantine or negative covid test. If pain or injury related was it due to an accident at work or from a motor vehicle accident? NO If yes, gather 3rd libertarian insurance information Date of accident/Injury: How long has patient had these symptoms?: 2 days PCP: Suman Lu Payor: [employer] MEDICARE FFS / Plan: [facility] MDCR-ADV PPO $0 [place] [id number] / Product Type: PPO [id number] documented in this encounter Plan of Treatment Not on file documented as of this encounter Visit Diagnoses Not on filedocumented in this encounter Care Teams Imaging Technician Relationship Specialty Start Date End Date Suman Lu PA-C [address] [place] [address] PCP - General Internal Medicine 12/22/20 Chari Dee MD [address] [place] [address] Specialist Cardiology 07/25/23 documented as of this encounter
--- OUTSIDE RECORDS SUMMARY | 2024-12-04 13:56 | XMS_ITS | Encounter Summary ---
Author Organization [facility] Address [address] [place] [address] Care Team Providers Care Neurology Nurse Name Role Phone Suman Lu PA-C Primary Care Provider [phone] Chari Dee MD Unavailable [phone] Reason for Visit * Reason Onset Date Comments Faxed Refill 05/09/2023 Encounter Details Date Type Department Care Team Description 05/09/2023 Telephone Adult Medicine [address] [phone] Suman Lu PA-C [address] [place] [address] [phone] Faxed Refill Social History Tobacco Use Types Packs/Day Years [...] Telephone Encounter - Glenis Peña M.A. - 05/09/2023 11:49 AM EDT What is needed? * Telephone Encounter - Kirsten Hall Keven - 05/09/2023 11:24 AM EDT Patient would like script to be: E-PRESCRIBED/FAXED TO PHARMACY WHEN WAS THE PATIENT'S LAST APPOINTMENT IN ADULT MEDICINE? 03/14/23 WHEN WAS THE LAST TIME THE PATIENT SAW THEIR PCP? Same as above Does patient have an upcoming appointment? Yes 06/15/23 (THE MEDICATION REQUESTED IS ON THE MED [...] Payor: [employer] MEDICARE FFS / Plan: [facility] MDCR-ADV PPO $0 [place] [id number] / Product Type: PPO [id number] documented in this encounter Plan of Treatment Not on file documented as of this encounter Visit Diagnoses Not on filedocumented in this encounter Care Teams Neurology Nurse Relationship Specialty Start Date End Date Suman Lu PA-C [address] [place], [place] [phone] PCP - General Internal Medicine 12/22/20 Chari Dee MD [address] [place], [place] [phone] Specialist Cardiology 07/25/23 documented as of this encounter
--- OUTSIDE RECORDS SUMMARY | 2024-12-04 13:56 | XMS_ITS | Encounter Summary ---
Author Organization [facility] Address [address] [place] [address] Care Team Providers Care Behavior Interventionist Name Role Phone Suman Lu PA-C Primary Care Provider [phone] Chari Dee MD Unavailable [phone] Encounter Details Date Type Department Care Team Description 07/31/2023 Home Health Certification Medical Records [address] [place] [address] Social History Tobacco Use Types Packs/Day Years [...] on filedocumented in this encounter Care Teams Behavior Interventionist Relationship Specialty Start Date End Date Suman Lu PA-C [address] [place], [place] [phone] PCP - General Internal Medicine 12/22/20 Chari Dee MD [address] [place], [place] [phone] Specialist Cardiology 07/25/23 documented as of this encounter
--- OUTSIDE RECORDS SUMMARY | 2024-12-04 13:56 | XMS_ITS | Encounter Summary ---
Author Organization [facility] Address [address] [place] [address] Care Team Providers Care Trading Specialist Name Role Phone Yoel Cervantes MD Primary Care Provider [phone] Suman Lu PA-C Primary Care Provider +[phone] Chari Dee MD Unavailable [phone] Encounter Details Date Type Department Care Team Description 08/25/2020 Hospital Medical Records [address] [place] [address] Social History Tobacco Use Types Packs/Day Years [...] on filedocumented in this encounter Care Teams Trading Specialist Relationship Specialty Start Date End Date Yoel Cervantes MD [address] [place] [address] [phone] PCP - General Internal Medicine 06/24/15 12/21/20 Suman Lu PA-C [address] [place] [address] [phone] PCP - General Internal Medicine 12/22/20 Chari Dee MD [address] [place] [address] Specialist Cardiology 07/25/23 documented as of this encounter
--- OUTSIDE RECORDS SUMMARY | 2024-12-04 13:56 | XMS_ITS | Encounter Summary ---
Author Organization [facility] Address [address] [place] [address] Care Team Providers Care Information Clerk Brokerage Name Role Phone Suman Lu PA-C Primary Care Provider [phone] Chari Dee MD Unavailable [phone] Reason for Visit * Reason Comments E-prescribe Rx Request Encounter Details Date Type Department Care Team Description 04/12/2023 Refill Adult Medicine [address] [phone] Valeria Bourne PA-C [address] [place] [address] [phone] E-prescribe Rx Request Social History Tobacco Use [...] suspected to have Coronavirus/COVID-19? No / Unsure 03/13/2023 2:42 PM EDT documented as of this encounter Miscellaneous Notes * Telephone Encounter - Ijeoma Landrum - 04/13/2023 12:50 PM EDT Lab Results Component Value Date NA 139 03/13/2023 K 4.2 03/13/2023 CO2 31 03/13/2023 CL 102 03/13/2023 BUN 10 03/13/2023 CREAT 0.86 03/13/2023 GLU 222 03/13/2023 CA 8.6 03/13/2023 GFR 95 03/13/2023 * Telephone Encounter - Cindy Olvera - 04/13/2023 12:27 PM EDT Patient would like script to be: E-PRESCRIBED/FAXED TO PHARMACY WHEN WAS THE PATIENT'S LAST APPOINTMENT IN ADULT MEDICINE? 03/14/23 WHEN WAS THE LAST TIME THE PATIENT SAW THEIR PCP? Same as above Does patient have an upcoming appointment? Yes 06/15/23 Valeria (THE MEDICATION REQUESTED IS ON THE MED [...] Payor: [facility] MEDIC[facility] FFS / Plan: [facility] MDCR-ADV PPO $0 [place] [id number] / Product Type: PPO [id number] documented in this encounter Plan of Treatment Not on file documented as of this encounter Visit Diagnoses Not on filedocumented in this encounter Care Teams Information Clerk Brokerage Relationship Specialty Start Date End Date Suman Lu PA-C [address] [place] [address] PCP - General Internal Medicine 12/22/20 Chari Dee MD [address] [place] [address] Specialist Cardiology 07/25/23 documented as of this encounter
--- OUTSIDE RECORDS SUMMARY | 2024-12-04 13:56 | XMS_ITS | Encounter Summary ---
Author Organization [facility] Address [address] [place] [address] Care Team Providers Care Photogrammetric Technician Name Role Phone Name, Luke ROPER Primary Care Provider Unavailabl e Yoel Cervantes MD Primary Care Provider + [phone] Yoel Cervantes MD Primary Care Provider + [phone] Suman Lu PA-C Primary Care Provider [phone] Chari Dee MD Unavailable [phone] Encounter Details Date Type Department Care Team Description 02/08/2013 Leveler Helper Report Medical Records [address] [place] [address] Joan Gates Social History Tobacco Use Types Packs/Day Years [...] on filedocumented in this encounter Care Teams Photogrammetric Technician Relationship Specialty Start Date End Date Name, MD Luke PCP - General 12/02/08 09/21/14 Yoel Cervantes MD [address] [place] [address] PCP - General Internal Medicine 06/24/15 12/21/20 Yoel Cervantes MD [address] [place] [address] [phone] PCP - General 09/22/14 06/23/15 Suman Lu PA-C [address] [place] [address] [phone] PCP - General Internal Medicine 12/22/20 Chari Dee MD [address] [place] [address] [phone] Specialist Cardiology 07/25/23 documented as of this encounter
--- OUTSIDE RECORDS SUMMARY | 2024-12-04 13:56 | XMS_ITS | Encounter Summary ---
Author Organization [facility] Address [address] [place] [address] Care Team Providers Care Social Service Coordinator Name Role Phone Name, Luke ROPER Primary Care Provider Unavailabl e Yoel Cervantes MD Primary Care Provider + [phone] Yoel Cervantes MD Primary Care Provider + [phone] Suman Lu PA-C Primary Care Provider [phone] Chari Dee MD Unavailable [phone] Encounter Details Date Type Department Care Team Description 05/27/2014 Telephone Adult Medicine [address] [phone] Name, MD Luke Social History Tobacco Use [...] encounter Miscellaneous Notes * Telephone Encounter - Beatriz Arvizu - 05/27/2014 1:22 PM EST Patient has an appt with nilesh at 2:00 today Patient had a stroke So His December is calling to let you know Patient needs nebulizer Patient was given one at [facility] calling states he needs a new one and Also looks like he has thrush And also cuts around his mouth,, Nelia cannot come to appt with patient she would like dr to know this a head of time documented in this encounter Plan of Treatment Not on file documented as of this encounter Visit Diagnoses Not on filedocumented in this encounter Care Teams Social Service Coordinator Relationship Specialty Start Date End Date Name, MD Luke PCP - General 12/02/08 09/21/14 Yoel Cervantes MD [address] [place] [address] PCP - General Internal Medicine 06/24/15 12/21/20 Yoel Cervantes MD [address] [place] [address] PCP - General 09/22/14 06/23/15 Suman Lu PA-C [address] [place] [address] PCP - General Internal Medicine 12/22/20 Chari Dee MD [address] [place] [address] Specialist Cardiology 07/25/23 documented as of this encounter
--- OUTSIDE RECORDS SUMMARY | 2024-12-04 13:56 | XMS_ITS | Encounter Summary ---
Author Organization [facility] Address [address] [place] [address] Care Team Providers Care Sonogram Technician Name Role Phone Yoel Cervantes MD Primary Care Provider [phone] Suman Lu PA-C Primary Care Provider [phone] Chari Dee MD Unavailable [phone] Encounter Details Date Type Department Care Team Description 02/19/2019 Academic Affairs Dean Report Medical Records [address] [place], [place] [id number] Abstract, Provider Social History Tobacco Use Types [...] on filedocumented in this encounter Care Teams Sonogram Technician Relationship Specialty Start Date End Date Yoel Cervantes MD [address] [place] [address] [phone] PCP - General Internal Medicine 06/24/15 12/21/20 Suman Lu PA-C [address] [place] [address] [phone] PCP - General Internal Medicine 12/22/20 Chari Dee MD [address] [place] [address] Specialist Cardiology 07/25/23 documented as of this encounter
--- OUTSIDE RECORDS SUMMARY | 2024-12-04 13:56 | XMS_ITS | Encounter Summary ---
Author Organization [facility] Address [address] [place] [address] Care Team Providers Care Telephone Betting Clerk Name Role Phone Suman Lu PA-C Primary Care Provider +[phone] Chari Dee MD Unavailable [phone] Encounter Details Date Type Department Care Team Description 06/29/2023 Orders Only Medical Records [address] [place] [address] [facility] Social History Tobacco Use Types Packs/Day [...] Name Priority Date/Time Associated Diagnosis Comments OUTSIDE PLAIN FILM Routine 06/22/2023 documented in this encounter Results * OUTSIDE PLAIN FILM (06/22/2023) [facility] RADIOLOGY documented in this encounter Visit Diagnoses Not on filedocumented in this encounter Care Teams Telephone Betting Clerk Relationship Specialty Start Date End Date Suman Lu PA-C [address] [place], [place] [phone] PCP - General Internal Medicine 12/22/20 Chari Dee MD [address] [place] [address] Specialist Cardiology 07/25/23 documented as of this encounter
--- OUTSIDE RECORDS SUMMARY | 2024-12-04 13:56 | XMS_ITS | Encounter Summary ---
Author Organization [facility] Address [address] [place] [address] Care Team Providers Care Child Watch Attendant Name Role Phone Name, Luke ROPER Primary Care Provider Unavailabl e Yoel Cervantes MD Primary Care Provider + [phone] Yoel Cervantes MD Primary Care Provider + [phone] Suman Lu PA-C Primary Care Provider [phone] Chari Dee MD Unavailable [phone] Encounter Details Date Type Department Care Team Description 05/30/2012 Assembler Latches And Springs Report Medical Records [address] [place] [address] Thea Mcclelland MD Social History Tobacco Use Types Packs/Day [...] on filedocumented in this encounter Care Teams Child Watch Attendant Relationship Specialty Start Date End Date Name, MD Luke PCP - General 12/02/08 09/21/14 Yoel Cervantes MD [address] [place] [address] [phone] PCP - General Internal Medicine 06/24/15 12/21/20 Yoel Cervantes MD [address] [place] [address] [phone] PCP - General 09/22/14 06/23/15 Suman Lu PA-C [address] [place] [address] [phone] PCP - General Internal Medicine 12/22/20 Chari Dee MD [address] [place] [address] [phone] Specialist Cardiology 07/25/23 documented as of this encounter
--- OUTSIDE RECORDS SUMMARY | 2024-12-04 13:56 | XMS_ITS | Encounter Summary ---
Author Organization [facility] Address [address] [place] [address] Care Team Providers Care Senior Net Architect Name Role Phone Suman Lu PA-C Primary Care Provider [phone] Chari Dee MD Unavailable Reason for Visit * Reason Comments E-prescribe Rx Request Encounter Details Date Type Department Care Team Description 09/22/2022 Refill Adult Medicine [address] [phone] Valeria Bourne PA-C [address] [place] [address] [phone] E-prescribe Rx Request Social History Tobacco Use [...] * Telephone Encounter - Ijeoma Landrum - 10/04/2022 9:35 AM EDT Romelia 06/22/22 Spoke with , appt rebooked for 10/14/22 Lab Results Component Value Date NA 140 06/22/2022 K 4.1 06/22/2022 CO2 29 06/22/2022 CL 104 06/22/2022 BUN 13 06/22/2022 CREAT 0.97 06/22/2022 GLU 110 06/22/2022 CA 9.1 06/22/2022 GFR 86 06/22/2022 documented in this encounter Plan of Treatment Not on file documented as of this encounter Visit Diagnoses Not on filedocumented in this encounter Care Teams Senior Net Architect Relationship Specialty Start Date End Date Suman Lu PA-C [address] [place] [address] PCP - General Internal Medicine 12/22/20 Chari Dee MD [address] [place] [address] Specialist Cardiology 07/25/23 documented as of this encounter
--- OUTSIDE RECORDS SUMMARY | 2024-12-04 13:56 | XMS_ITS | Encounter Summary ---
Author Organization [facility] Address [address] [place] [address] Care Team Providers Care Co Founder And Chief Strategy Officer Name Role Phone Yoel Cervantes MD Primary Care Provider [phone] Suman Lu PA-C Primary Care Provider [phone] Chari Dee MD Unavailable [phone] Reason for Visit * Reason Onset Date Comments refill request 07/16/2020 Encounter Details Date Type Department Care Team Description 07/16/2020 Refill Respiratory and Diabetes Medicaid/ACO Pharmacist [address] [place] [address] Yoel Cervantes MD [address] [place] [address] refill request Social History Tobacco Use Types [...] encounter Miscellaneous Notes * Telephone Encounter - Gemma Borden Pharm.D - 07/16/2020 10:22 AM EST Please consider refilling script(s) in light of the [facility] ACO formulary changes. eGmma Borden PharmD., BCACP Clinical Pharmacist [facility] [email or web address] Office: Wednesdays [phone], documented in this encounter Plan of Treatment Not on file documented as of this encounter Visit Diagnoses Not on filedocumented in this encounter Care Teams Co Founder And Chief Strategy Officer Relationship Specialty Start Date End Date Yoel Cervantes MD [address] [place] [address] [phone] PCP - General Internal Medicine 06/24/15 12/21/20 Suman Lu PA-C [address] [place] [phone] PCP - General Internal Medicine 12/22/20 Chari Dee MD [address] [place] [address] Specialist Cardiology 07/25/23 documented as of this encounter
--- OUTSIDE RECORDS SUMMARY | 2024-12-04 13:56 | XMS_ITS | Encounter Summary ---
Author Organization [facility] Address [address] [place] [address] Care Team Providers Care Scheduling Representative Name Role Phone Yoel Cervantes MD Primary Care Provider [phone] Suman Lu PA-C Primary Care Provider [phone] Chari Dee MD Unavailable [phone] Encounter Details Date Type Department Care Team Description 04/12/2019 Machinist Helper Marine Report Medical Records [address] [place] [address] Roosevelt Villalobos NP Social History Tobacco Use [...] on filedocumented in this encounter Care Teams Scheduling Representative Relationship Specialty Start Date End Date Yoel Cervantes MD [address] [place] [address] [phone] PCP - General Internal Medicine 06/24/15 12/21/20 Suman Lu PA-C [address] [place] [address] [phone] PCP - General Internal Medicine 12/22/20 Chari Dee MD [address] [place] [address] Specialist Cardiology 07/25/23 documented as of this encounter
--- OUTSIDE RECORDS SUMMARY | 2024-12-04 13:56 | XMS_ITS | Encounter Summary ---
Author Organization [facility] Address [address] [place] [address] Care Team Providers Care Food Counter Worker Name Role Phone Name, Luke ROPER Primary Care Provider Unavailabl e Yoel Cervantes MD Primary Care Provider + [phone] Yoel Cervantes MD Primary Care Provider + [phone] Suman Lu PA-C Primary Care Provider [phone] Chari Dee MD Unavailable [phone] Encounter Details Date Type Department Care Team Description 04/18/2011 Barrer And Tacker Report Medical Records [address] [place] [address] Paco Yusuf Social History Tobacco Use Types Packs/Day Years [...] on filedocumented in this encounter Care Teams Food Counter Worker Relationship Specialty Start Date End Date Name, MD Luke PCP - General 12/02/08 09/21/14 Yoel Cervantes MD [address] [place], [place] [phone] PCP - General Internal Medicine 06/24/15 12/21/20 Yoel Cervantes MD [address] [place] [address] PCP - General 09/22/14 06/23/15 Suman Lu PA-C [address] [place] [address] [phone] PCP - General Internal Medicine 12/22/20 Chari Dee MD [address] [place] [address] [phone] Specialist Cardiology 07/25/23 documented as of this encounter
--- OUTSIDE RECORDS SUMMARY | 2024-12-04 13:56 | XMS_ITS | Encounter Summary ---
Author Organization [facility] Address [address] [place] [address] Care Team Providers Care Industrial Safety And Health Specialist Name Role Phone Name, Luke ROPER Primary Care Provider Unavailabl e Yoel Cervantes MD Primary Care Provider + [phone] Yoel Cervantes MD Primary Care Provider [phone] Suman Lu PA-C Primary Care Provider [phone] Chari Dee MD Unavailable [phone] Reason for Referral * Specialist (Routine) - Authorized/Booked Specialty Diagnoses / Procedures Referred By Contac t Referred To Contact ORTHOPEDICS / Orthopedic Procedures REFERRAL TO ORTHOPEDICS Luke Galvan MD [address] [place] [address] External Orthopedics Referral ID Status Reason Start Date Expiration Date V isits Requested Visits Authorized SEE REVIEW 04/08/11 Authorized/ Booked 04/08/2011 07/08/2011 1 1 * Specialist (Routine) - Authorized/Booked Specialty Diagnoses / Procedures Referred By Contac t Referred To Contact Neurosurgery Procedures REFERRAL TO NEUROSURGERY Luke Galvan MD [address] [place] [address] Paco Yusuf MD [address] [place] [address] [address] [place] [address] Referral ID Status Reason Start Date Expiration Date V isits Requested Visits Authorized SEE REVIEW 04/08/11 Authorized/ Booked 04/08/2011 07/07/2011 1 1 Encounter Details Date Type Department Care Team Description 04/07/2011 Telephone Adult Medicine [address] [address] Luke Galvan MD Social History Tobacco Use Types Packs/Day [...] * Telephone Encounter - Beatriz Arvizu - 04/12/2011 4:39 PM EDT December tel [phone] calling stating patient will be available tomorrow to come in for pill count // * Telephone Encounter - Carol Amaya R.N. - 04/07/2011 3:03 PM EDT Pt called back and was first told he would have referrals made for the 2 specialist. He understandsand agrees. He will ait the referral appointments. I then informed him that I had spoken to dr galvan, and that he did need to come in for a pill count tomorrow or he would be in violation of his contract. He immediately became very angry and told me that he was away with his mother on life support and would not be coming in here. He told me that Dr Galvan understood this and would never ask him to leave his dying mother. I read the pt the information from Dr Galvan and explained that accoding to the contract, he had 24 hours to come in for a pill count or he would be in violation and it is possible that he would not continue to receive his meds Pt became very angry, he swore and told me to let him speak with dr galvan now. He was told dr galvan had left for the day and told me that he did not believe that,. He continued to shout and became moreangry demanding to speak with dr galvan. I warned him twice that if he continued to swear I was ending the call. He continued to swear and I ended the call. Dr lizarraga aware. * Telephone Encounter - Luna Sheffield - 04/07/2011 2:12 PM EDT Returning Carol's call. Please call patient again at [phone]. THank you. * Telephone Encounter - Carol Amaya R.N. - 04/07/2011 2:00 PM EDT Call to pt and have asked him to call me to inmform him of the referrals and the decision re his narcotics. 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 - 04/07/2011 1:28 PM EDT Pt called and stated he would need to wait until next week to come in for a pill count. He states he can come in on Monday or . Further states dr galvan is aware that his Other is on life support in [place] and he is with her most of the time, he has no car and no way to come back for apill count. * Telephone Encounter - Carol Amaya R.N. 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, unspecified whether generalized or localized, shoulder region documented in this encounter Care Teams Industrial Safety And Health Specialist Relationship Specialty Start Date End Date Name, MD Luke PCP - General 12/02/08 09/21/14 Yoel Cervantes MD [address] [place] [address] PCP - General Internal Medicine 06/24/15 12/21/20 Yoel Cervantes MD [address] [place] [address] PCP - General 09/22/14 06/23/15 Suman Lu PA-C [address] [place] [address] PCP - General Internal Medicine 12/22/20 Chari Dee MD [address] [place] [address] Specialist Cardiology 07/25/23 documented as of this encounter
--- OUTSIDE RECORDS SUMMARY | 2024-12-04 13:56 | XMS_ITS | Encounter Summary ---
Author Organization [facility] Address [address] [place] [address] Care Team Providers Care Optics Test Technician Name Role Phone Yoel Cervantes MD Primary Care Provider [phone] Suman Lu PA-C Primary Care Provider [phone] Chari Dee MD Unavailable [phone] Reason for Visit * Reason Onset Date Comments Faxed Refill 07/15/2020 Encounter Details Date Type Department Care Team Description 07/15/2020 Refill Adult Medicine [address] [phone] Yoel Cervantes MD [address] [place] [address] [phone] Faxed Refill Social History Tobacco Use Types Packs/Day Years Used Date Smoking Tobacco: Never Smokeless Tobacco: Never Alcohol Use Standard Drinks/Week Comments No 0 (1 standard drink = 0.6 oz pur e alcohol) Sex Assigned at Date Recorded Not on file Job Start Date Occupation Industry Not on file Not on file Not on file COVID-19 Exposure Response Date Recorded In the last month, have you been in contact with someone who was confirmed or suspected to have Coronavirus / COVID-19? Unable to assess 06/15/2020 8:43 AM EST documented as of this encounter Miscellaneous Notes * Telephone Encounter - Ijeoma Gallardo M.A. - 07/15/2020 5:38 PM EST Lab Results Component Value Date CHOL 131 06/03/2020 LDL 55 06/03/2020 HDL 31 06/03/2020 TRIG 229 06/03/2020 SGOT 15 06/03/2020 SGPT 23 06/03/2020 * Telephone Encounter - Helena Garrido - 07/15/2020 5:04 PM EST Patient would like script to be: E-PRESCRIBED/FAXED TO PHARMACY ?? WHEN WAS THE PATIENT'S LAST APPOINTMENT IN ADULT MEDICINE? 06/15/20 ?? WHEN WAS THE LAST TIME THE PATIENT SAW THEIR PCP? 05/15/2019 ?? Does patient have an upcoming appointment? No-patient refused appointment, will call back to book appointment ?? (THE MEDICATION REQUESTED IS ON THE MED LIST ABOVE) All of the medications requested were on the CURRENT MEDS list ?? Did you check the Pharmacy information above?: YES ?? Patient wants: 90 -day supply ?? Is this a mail order prescription request ? NO ?? If the refill is from a FAXED refill request what is the RX # listed on the fax? N/A ?? Patients current insurance carrier is: Payor: [employer] / Plan: [employer] / Product Type: MEDICAID RISK ?? documented in this encounter Plan of Treatment Not on file documented as of this encounter Visit Diagnoses Not on filedocumented in this encounter Care Teams Optics Test Technician Relationship Specialty Start Date End Date Yoel Cervantes MD [address] [place] [address] PCP - General Internal Medicine 06/24/15 12/21/20 Suman Lu PA-C [address] [place] [address] [phone] PCP - General Internal Medicine 12/22/20 Chari Dee MD [address] [place] [address] [phone] Specialist Cardiology 07/25/23 documented as of this encounter
--- OUTSIDE RECORDS SUMMARY | 2024-12-04 13:56 | XMS_ITS | Encounter Summary ---
Author Organization [facility] Address [address] [place] [address] Care Team Providers Care Ticket Taker Ferryboat Name Role Phone Name, Luke ROPER Primary Care Provider Unavailabl e Yoel Cervantes MD Primary Care Provider + [phone] Yoel Cervantes MD Primary Care Provider + [phone] Suman Lu PA-C Primary Care Provider [phone] Chari Dee MD Unavailable [phone] Encounter Details Date Type Department Care Team Description 01/31/2011 Shrinker Report Medical Records [address] [place] [address] Vidal Yen MD Social History Tobacco Use [...] on filedocumented in this encounter Care Teams Ticket Taker Ferryboat Relationship Specialty Start Date End Date Name, MD Luke PCP - General 12/02/08 09/21/14 Yoel Cervantes MD [address] [place] [address] [phone] PCP - General Internal Medicine 06/24/15 12/21/20 Yoel Cervantes MD [address] [place] [address] PCP - General 09/22/14 06/23/15 Suman Lu PA-C [address] [place] [address] [phone] PCP - General Internal Medicine 12/22/20 Chari Dee MD [address] [place] [address] [phone] Specialist Cardiology 07/25/23 documented as of this encounter
--- OUTSIDE RECORDS SUMMARY | 2024-12-04 13:56 | XMS_ITS | Encounter Summary ---
Author Organization [facility] Address [address] [place] [address] Care Team Providers Care Pulp Press Tender Name Role Phone Suman Lu PA-C Primary Care Provider [phone] Chari Dee MD Unavailable [phone] Reason for Visit * Reason Onset Date Comments Faxed Order 2023 [facility] Home Care 06/09/23 Encounter Details Date Type Department Care Team Description 2023 Telephone Adult Medicine [facility] [address] [place] [address] [phone] Suman Lu PA-C [address] [place] [address] [phone] Faxed Order ([facility] Home [facility] 06/09/23) Social History Tobacco Use Types Packs/Day Years [...] Miscellaneous Notes * Telephone Encounter - Kirsten Baca - 2023 4:27 PM EST [facility] 06/09/23 documented in this encounter Plan of Treatment Not on file documented as of this encounter Visit Diagnoses Not on filedocumented in this encounter Care Teams Pulp Press Tender Relationship Specialty Start Date End Date Suman Lu PA-C [address] [place] [address] PCP - General Internal Medicine 12/22/20 Chari Dee MD [address] [place] [address] Specialist Cardiology 07/25/23 documented as of this encounter
--- OUTSIDE RECORDS SUMMARY | 2024-12-04 13:56 | XMS_ITS | Encounter Summary ---
Author Organization [facility] Address [address] [place] [address] Care Team Providers Care Hat Stock Laminating Machine Operator Name Role Phone Yoel Cervantes MD Primary Care Provider [phone] Suman Lu PA-C Primary Care Provider [phone] Chari Dee MD Unavailable [phone] Reason for Referral * EXTERNAL (Routine) - Authorized/Booked Specialty Diagnoses / Procedures Referred By Jen au Referred To Contact Physical Therapy Diagnoses Vertigo Procedures REFERRAL TO PHYSICAL THERAPY Yoel Cervantes MD [address] [place] [address] [email or web address] Referral ID Status Reason Start Date Expiration Date V isits Requested Visits Authorized SEE NOTE Authorized/B ooked 04/15/2019 07/30/2019 1 1 Reason for Visit * Reason Onset Date Comments Infantry Officer Feedback 04/15/2019 shukri Encounter Details Date Type Department Care Team Description 04/15/2019 Telephone Adult Medicine [address] [phone] Yoel Cervantes MD [address] [place] [address] [phone] Infantry Officer Feedback ([facility] ) Social History Tobacco Use Types Packs/Day [...] encounter Miscellaneous Notes * Telephone Encounter - Tavia Joanie - 04/15/2019 2:40 PM EDT Please review this patients new referral request. The referral has been pended. Please complete thefollowing: If approved> sign order If denied>please give instructions and route to your practice nursing pool. Practice nurse should inform referrals and the patient if denied. * Telephone Encounter - Ellie RamNeill - 04/15/2019 2:29 PM EDT What insurance does the patient have today? [facility] Effective 04/16/09: [facility] will not retro referral requests over 90 days. If request is for this please instruct patient to call the 800# on their insurance card to appeal. Do not submit a request. Referrals cannot be processed if the insurance is not accurate. If the insurance listed above in red is NO BILLING INFORMATION FOUND FOR THIS ENCOUTNER The patients correct insurance must be obtained and registered in [facility] or their referral can not be processed. Is this a retro request? NO. If yes for what date of service do you need the retro referral? N/A Who is calling to request this referral? Patient's spouse If the caller is not the patient, what is their name? December Ask the patient WHO referred them to this specialty: Yoel Cervantes FIRST and LAST NAME of SPECIALIST PATIENT is seeing: [facility] What specialty is this? Physical therapy DIAGNOSIS Patient is being seen for (Not a body part or a procedure): vertigo Have you seen this SPECIALIST for this PROBLEM/DX before?NO If YES, when: Have you checked REVIEW or the APPT DESK to see if this referral has already been done or has visits left? YES Is this visit:Initial Visit Address of Specialist: [address] [place] [address] Phone # of Specialist:[phone] Fax #: (if applicable): Does patient have an appointment scheduled?: NO, patient needs referral from Dr Cervantes before this appointment can be scheduled, patient was informed by his Neurologist Nahomy Villalobos when he recently saw her on 04-12-19, to have Dr Cervantes put in a referral for physical therapy to have crystals put back in by physical therapy dept at [facility] as they do that at this location Date of appointment- (including a retro-request): Is this appointment related to: Not MVA, WC or Surgery related documented in this encounter Plan of Treatment Not on file documented as of this encounter Visit Diagnoses Diagnosis Vertigo- Primary Dizziness and giddiness documented in this encounter Care Teams Hat Stock Laminating Machine Operator Relationship Specialty Start Date End Date Yoel Ceravntes MD [address] [place] [address] 911[address] PCP - General Internal Medicine 06/24/15 12/21/20 Suman Lu PA-C [address] [place] [phone] PCP - General Internal Medicine 12/22/20 Chari Dee MD [address] [place] [address] Specialist Cardiology 07/25/23 documented as of this encounter
--- OUTSIDE RECORDS SUMMARY | 2024-12-04 13:56 | XMS_ITS | Encounter Summary ---
Author Organization [facility] Address [address] [place] [address] Care Team Providers Care Motor Patrol Operator Name Role Phone Yoel Cervantes MD Primary Care Provider +[phone] Suman Lu PA-C Primary Care Provider [phone] Chari Dee MD Unavailable [phone] Encounter Details Date Type Department Care Team Description 11/20/2018 Hospital Medical Records [address] [place] [address] Damien Daily Social History Tobacco Use Types Packs/Day Years [...] on filedocumented in this encounter Care Teams Motor Patrol Operator Relationship Specialty Start Date End Date Yoel Cervantes MD [address] [place] [address] [phone] PCP - General Internal Medicine 06/24/15 12/21/20 Suman Lu PA-C [address] [place] [address] [phone] PCP - General Internal Medicine 12/22/20 Chari Dee MD [address] [place] [address] Specialist Cardiology 07/25/23 documented as of this encounter
--- OUTSIDE RECORDS SUMMARY | 2024-12-04 13:56 | XMS_ITS | Encounter Summary ---
Author Organization [facility] Address [address] [place] [address] Care Team Providers Care Quarry Boss Name Role Phone Yoel Cervantes MD Primary Care Provider + [phone] Yoel Cervantes MD Primary Care Provider + [phone] Suman Lu PA-C Primary Care Provider Chari Dee MD Unavailable [phone] Reason for Visit * Reason Onset Date Comments asthma 12/19/2014 Cough 12/19/2014 Encounter Details Date Type Department Care Team Description 12/19/2014 Telephone Adult Medicine [address] [phone] Name, MD Luke asthma; Cough Social History Tobacco Use Types Packs/Day Years [...] Telephone Encounter - Carol Amaya R.N. - 12/19/2014 1:21 PM EDT I left a message for the patient to return my call. * Telephone Encounter - Aimee Nance - 12/19/2014 12:47 PM EDT Symptoms patient is presenting: patients wants her seen raza, has a bad cough and sounds very raspy and rattling in his chest, he also has asthma. How long has patient had these symptoms?: ongoing PCP: Luke Name Payor: [facility] MEDICAID / Plan: [facility] MEDICAID HMO $0 SHEA / Product Type: HMO [id number] documented in this encounter Plan of Treatment Not on file documented as of this encounter Visit Diagnoses Not on filedocumented in this encounter Care Teams Quarry Boss Relationship Specialty Start Date End Date Yoel Cervantes MD [address] [place] [address] PCP - General Internal Medicine 06/24/15 12/21/20 Yoel Cervantes MD [address] [place] [address] 24448 PCP - General 09/22/14 06/23/15 Suman Lu PA-C [address] [place] [address] 76[address] PCP - General Internal Medicine 12/22/20 Chari Dee MD [address] [place] [address] 116[address] Specialist Cardiology 07/25/23 documented as of this encounter
--- OUTSIDE RECORDS SUMMARY | 2024-12-04 13:56 | XMS_ITS | Encounter Summary ---
Author Organization [facility] Address [address] [place] [address] Care Team Providers Care Biomass Plant Manager Name Role Phone Yoel Cervantes MD Primary Care Provider +[phone] Suman Lu PA-C Primary Care Provider [phone] Chari Dee MD Unavailable [phone] Encounter Details Date Type Department Care Team Description 03/25/2019 Release of Information Medical Records [address] [place] [address] Abstract, Provider Social History Tobacco Use Types [...] on filedocumented in this encounter Care Teams Biomass Plant Manager Relationship Specialty Start Date End Date Yoel Cervantes MD [address] [place] [address] [phone] PCP - General Internal Medicine 06/24/15 12/21/20 Suman Lu PA-C [address] [place] [address] [phone] PCP - General Internal Medicine 12/22/20 Chari Dee MD [address] [place] [address] Specialist Cardiology 07/25/23 documented as of this encounter
--- OUTSIDE RECORDS SUMMARY | 2024-12-04 13:56 | XMS_ITS | Encounter Summary ---
Author Organization [facility] Address [address] [place] [address] Care Team Providers Care Lab Support Technician Name Role Phone Suman Lu PA-C Primary Care Provider [phone] Chari Dee MD Unavailable [phone] Reason for Visit * Reason Onset Date Comments VNA Call 07/27/2023 Encounter Details Date Type Department Care Team Description 07/27/2023 Telephone Adult Medicine [address] [address] Suman Lu PA-C [address] [place] [address] [phone] VNA Call Social History Tobacco Use Types [...] Telephone Encounter - Suman Lu PA-C - 07/28/2023 11:03 AM EST sent * Telephone Encounter - Sree Toledo L.P.N. - 07/28/2023 10:46 AM EST VO given Please order a new glucometer and supplies Thank you * Telephone Encounter - Suman Lu PA-C - 07/27/2023 4:26 PM EST Okay for verbal order * Telephone Encounter - Sree Toledo L.P.N. - 07/27/2023 3:33 PM EST VNA need VO to continue care Please review and advise Please send response to the VNA pool P [phone] Thank you * Telephone Encounter - Sridhar Looney - 07/27/2023 2:47 PM EST VNA CALL Which VNA office is calling? [facility] Full name of caller: Carlyn The caller is A nurse Is the caller at the patients home?: NO Reason for call: Reporting recert of care and will be continuing to see patient 1 time weekly for intermediate services Does caller need an urgent call back? NO Was CONTACT Telephone # obtained above?: YES Fax #: documented in this encounter Plan of Treatment Not on file documented as of this encounter Visit Diagnoses Not on filedocumented in this encounter Care Teams Lab Support Technician Relationship Specialty Start Date End Date Suman Lu PA-C [address] [place] [address] PCP - General Internal Medicine 12/22/20 Chari Dee MD [address] [place] [address] Specialist Cardiology 07/25/23 documented as of this encounter
--- OUTSIDE RECORDS SUMMARY | 2024-12-04 13:57 | XMS_ITS | Encounter Summary ---
Author Organization [facility] Address [address] [place] [address] Care Team Providers Care Director Of Sustainability Programs Name Role Phone Yoel Cervantes MD Primary Care Provider + [phone] Suman Lu PA-C Primary Care Provider [phone] Chari Dee MD Unavailable [phone] Encounter Details Date Type Department Care Team Description 09/07/2020 SCAN Medical Records [address] [place] [address] Abstract, Provider Social History Tobacco Use Types [...] Name Priority Date/Time Associated Diagnosis Comments OUTSIDE CT Routine 09/07/2020 documented in this encounter Results * OUTSIDE CT (09/07/2020) Provider Default RADIOLOGY documented in this encounter Visit Diagnoses Not on filedocumented in this encounter Care Teams Director Of Sustainability Programs Relationship Specialty Start Date End Date Yoel Cervantes MD [address] [place], [place] [phone] PCP - General Internal Medicine 06/24/15 12/21/20 Suman Lu PA-C [address] [place], [place] [phone] PCP - General Internal Medicine 12/22/20 Chari Dee MD [address] [place], [place] [phone] Specialist Cardiology 07/25/23 documented as of this encounter
--- OUTSIDE RECORDS SUMMARY | 2024-12-04 13:57 | XMS_ITS | Encounter Summary ---
Author Organization [facility] Address [address] [place] [address] Care Team Providers Care Cork Insulator Name Role Phone Yoel Cervantes MD Primary Care Provider [phone] Suman Lu PA-C Primary Care Provider [phone] Chari Dee MD Unavailable [phone] Reason for Visit * Reason Comments E-prescribe Rx Request Encounter Details Date Type Department Care Team Description 10/30/2020 Refill Adult Medicine [facility] [address] [place] [address] [phone] Suman Lu PA-C [address] [place] [address] [phone] E-prescribe Rx Request Social History Tobacco Use [...] or suspected to have Coronavirus / COVID-19? No / Unsure 10/22/2020 10:05 AM EDT documented as of this encounter Miscellaneous Notes * Telephone Encounter - Carly Salas M.A. - 10/30/2020 2:18 PM EDT SHERNI 10/22/2020 F/U appt 12/22/2020 Lab Results Component Value Date NA 139 10/22/2020 K 4.6 10/22/2020 CO2 29 10/22/2020 CL 102 10/22/2020 BUN 23 10/22/2020 CREAT 0.68 10/22/2020 GLU 142 10/22/2020 CA 9.4 10/22/2020 GFR > 60 10/22/2020 * Telephone Encounter - Jonathan Myers - 10/30/2020 12:35 PM EDT Patient would like script to be: E-PRESCRIBED/FAXED TO PHARMACY WHEN WAS THE PATIENT'S LAST APPOINTMENT IN ADULT MEDICINE? 10/22/2020 WHEN WAS THE LAST TIME THE PATIENT SAW THEIR PCP? Same as above Does patient have an upcoming appointment? Yes 12/22/2020 (THE MEDICATION REQUESTED IS ON THE MED [...] N/A Patients current insurance carrier is: [place] / [place] / Product Type: [place] [id number] documented in this encounter Plan of Treatment Not on file documented as of this encounter Visit Diagnoses Not on filedocumented in this encounter Care Teams Cork Insulator Relationship Specialty Start Date End Date Yoel Cervantes MD [address] [place] [address] PCP - General Internal Medicine 06/24/15 12/21/20 Suman Lu PA-C [address] [place] [address] [phone] PCP - General Internal Medicine 12/22/20 Chari Dee MD [address] [place] [address] [phone] Specialist Cardiology 07/25/23 documented as of this encounter
--- OUTSIDE RECORDS SUMMARY | 2024-12-04 13:57 | XMS_ITS | Encounter Summary ---
Author Organization [facility] Address [address] [place] [address] Care Team Providers Care Survey Director Name Role Phone Yoel Cervantes MD Primary Care Provider [phone] Suman Lu PA-C Primary Care Provider [phone] Chari Dee MD Unavailable [phone] Encounter Details Date Type Department Care Team Description 03/17/2020 Community Development Manager Report Medical Records [address] [place] [address] Suman Mark [address] [place] [address] Social History Tobacco Use Types Packs/Day Years [...] on filedocumented in this encounter Care Teams Survey Director Relationship Specialty Start Date End Date Yoel Cervantes MD [address] [place] [address] PCP - General Internal Medicine 06/24/15 12/21/20 Suman Lu PA-C [address] [place] [address] [phone] PCP - General Internal Medicine 12/22/20 Chari Dee MD [address] [place] [address] Specialist Cardiology 07/25/23 documented as of this encounter
--- OUTSIDE RECORDS SUMMARY | 2024-12-04 13:57 | XMS_ITS | Encounter Summary ---
Author Organization [facility] Address [address] [place] [address] Care Team Providers Care Unit Technician Name Role Phone Yoel Cervantes MD Primary Care Provider [phone] Suman Lu PA-C Primary Care Provider [phone] Chari Dee MD Unavailable [phone] Encounter Details Date Type Department Care Team Description 10/06/2020 SNF discharge summary Medical Records [address] [place] [address] Abstract, Provider Social History Tobacco Use Types [...] on filedocumented in this encounter Care Teams Unit Technician Relationship Specialty Start Date End Date Yoel Cervantes MD [address] [place] [address] [phone] PCP - General Internal Medicine 06/24/15 12/21/20 Suman Lu PA-C [address] [place] [address] [phone] PCP - General Internal Medicine 12/22/20 Chari Dee MD [address] [place] [address] Specialist Cardiology 07/25/23 documented as of this encounter
--- OUTSIDE RECORDS SUMMARY | 2024-12-04 13:57 | XMS_ITS | Encounter Summary ---
Author Organization [facility] Address [address] [place] [address] Care Team Providers Care Hot Mill Shearer Name Role Phone Yoel Cervantes MD Primary Care Provider + [phone] Yoel Cervantes MD Primary Care Provider + [phone] Suman Lu PA-C Primary Care Provider [phone] Chari Dee MD Unavailable [phone] Encounter Details Date Type Department Care Team Description 04/24/2015 Newcomer Hostess Report Medical Records [address] [place] [address] Abstract, Provider Social History Tobacco Use Types [...] on filedocumented in this encounter Care Teams Hot Mill Shearer Relationship Specialty Start Date End Date Yoel Cervantes MD [address] [place] [address]87 PCP - General Internal Medicine 06/24/15 12/21/20 Yoel Cervantes MD [address] [place] [address] 98[address] PCP - General 09/22/14 06/23/15 Suman Lu PA-C [address] [place] [address] [phone] PCP - General Internal Medicine 12/22/20 Chari Dee MD [address] [place] [address] [phone] Specialist Cardiology 07/25/23 documented as of this encounter
--- OUTSIDE RECORDS SUMMARY | 2024-12-04 13:57 | XMS_ITS | Encounter Summary ---
Author Organization [facility] Address [address] [place] [address] Care Team Providers Care Book Jacket Cover Machine Operator Name Role Phone Yoel Cervantes MD Primary Care Provider [phone] Suman Lu PA-C Primary Care Provider +[phone] Chari Dee MD Unavailable [phone] Encounter Details Date Type Department Care Team Description 05/14/2020 Home Health Certification Medical Records [address] [place] [address]82 Social History Tobacco Use Types Packs/Day Years [...] on filedocumented in this encounter Care Teams Book Jacket Cover Machine Operator Relationship Specialty Start Date End Date Yoel Cervantes MD [address] [place] [address] [phone] PCP - General Internal Medicine 06/24/15 12/21/20 Suman Lu PA-C [address] [place] [address] [phone] PCP - General Internal Medicine 12/22/20 Chari Dee MD [address] [place] [address] Specialist Cardiology 07/25/23 documented as of this encounter
--- OUTSIDE RECORDS SUMMARY | 2024-12-04 13:57 | XMS_ITS | Encounter Summary ---
Author Organization [facility] Address [address] [place] [address] Care Team Providers Care Medical Services Assistant Name Role Phone Yoel Cervantes MD Primary Care Provider + [phone] Yoel Cervantes MD Primary Care Provider + [phone] Suman Lu PA-C Primary Care Provider [phone] Chari Dee MD Unavailable [phone] Encounter Details Date Type Department Care Team Description 01/12/2015 Hospital Medical Records [address] [place] [address] Social History Tobacco Use Types Packs/Day Years [...] on filedocumented in this encounter Care Teams Medical Services Assistant Relationship Specialty Start Date End Date Yoel Cervantes MD [address] [place] [address] [phone] PCP - General Internal Medicine 06/24/15 12/21/20 Yoel Cervantes MD [address] [place] [address] PCP - General 09/22/14 06/23/15 Suman Lu PA-C [address] [place] [address] PCP - General Internal Medicine 12/22/20 Chari Dee MD [address] [place] [address] Specialist Cardiology 07/25/23 documented as of this encounter
--- OUTSIDE RECORDS SUMMARY | 2024-12-04 13:57 | XMS_ITS | Encounter Summary ---
Author Organization [facility] Address [address] [place] [address] Care Team Providers Care Usps Letter Carrier Name Role Phone Suman Lu PA-C Primary Care Provider +[phone] Chari Dee MD Unavailable Encounter Details Date Type Department Care Team Description 05/06/2024 Orders Only Medical Records [address] [place] [address] Suman Lu PA-C [address] [place], [place] [phone] Social History Tobacco Use Types Packs/Day Years [...] Procedure Name Priority Date/Time Associated Diagnosis Comments AL ECG ROUTINE ECG W/LEAST 1 2 LDS I&R ONLY Routine 05/01/2024 documented in this encounter Results * AL ECG ROUTINE ECG W/LEAST 12 LDS I&R ONLY (05/01/2024) Suman Lu PA-C CARDIOLOGY documented in this encounter Visit Diagnoses Not on filedocumented in this encounter Care Teams Usps Letter Carrier Relationship Specialty Start Date End Date Suman Lu PA-C [address] [place] [address] PCP - General Internal Medicine 12/22/20 Chari Dee MD [address] [place] [address] Specialist Cardiology 07/25/23 documented as of this encounter
--- OUTSIDE RECORDS SUMMARY | 2024-12-04 13:57 | XMS_ITS | Encounter Summary ---
Author Organization [facility] Address [address] [place] [address] Care Team Providers Care Feather Boner Name Role Phone Suman Lu PA-C Primary Care Provider +[phone] Chari Dee MD Unavailable [phone] Encounter Details Date Type Department Care Team Description 11/28/2023 Home Health Certification Medical Records [address] [place] [address] Vna Social History Tobacco Use Types Packs/Day Years [...] on filedocumented in this encounter Care Teams Feather Boner Relationship Specialty Start Date End Date Suman Lu PA-C [address] [place], [place] [phone] PCP - General Internal Medicine 12/22/20 Chari Dee MD [address] [place], [place] [phone] Specialist Cardiology 07/25/23 documented as of this encounter
--- OUTSIDE RECORDS SUMMARY | 2024-12-04 13:57 | XMS_ITS | Encounter Summary ---
Author Organization [facility] Address [address] [place] [address] Care Team Providers Care Certified Detention Deputy Name Role Phone Name, Luke ROPER Primary Care Provider Unavailabl e Yoel Cervantes MD Primary Care Provider + [phone] Yoel Cervantes MD Primary Care Provider + [phone] Suman Lu PA-C Primary Care Provider [phone] Chari Dee MD Unavailable [phone] Encounter Details Date Type Department Care Team Description 07/16/2014 Orders Only Adult Medicine [address] [phone] Ivonne Rodriguez DO Pure hypercholesterolemia; LFT elevation Social History Tobacco Use Types Packs/Day Years [...] documented as of this encounter Results * (ABNORMAL) LIPID PROFILE (10/09/2014 3:27 PM EDT) [facility] Cholesterol 156 0 - 200 mg/dL 10/09/2014 4:32 PM EDT [facility] TRIGLYCERIDES 329(H) 0 - 150 mg/dL 10/09/2014 4:32 PM EDT [facility] HDL CHOLESTEROL 27(L) >40 mg/dL 5 4:32 PM EDT [facility] LDL CALCULATED 64 0 - 100 mg/dL 10/09/2014 4:34 PM EDT [facility] TC-HDLC RATIO 6(H) 0.0 - 4.4 mg/dL 10/09/2014 4:32 PM EDT [facility] 10/09/2014 3:27 PM EDT 10/09/2014 3:28 PM EDT Ivonne Thomas DO LAB [facility] [address] [facility] * HEPATIC FUNCTION (LIVER) PANEL (10/09/2014 3:27 PM EDT) TOTAL PROTEIN 6.5 6.0 - 8.3 gm/dL 10/09/2014 4:32 PM EDT [facility] Albumin 4.4 3.2 - 5.6 gm/dL 10/09/2014 4:32 PM EDT [facility] BILI,TOTAL 0.5 0.0 - 1.2 mg/dL 10/09/2014 4:32 PM EDT [facility] BILI,DIRECT 0.2 0.0 - 0.3 mg/dL 10/09/2014 4:32 PM EDT [facility] BILI,INDIRECT 0.3 0.0 - 1.1 mg/dL 10/09/2014 4:32 PM EDT [facility] AST (SGOT) 34 10 - 42 U/L 10/09/2014 4:32 PM EDT [facility] ALT( SGPT) 55 10 - 60 U/L 10/09/2014 4:32 PM EDT [facility] ALK PHOS 93 42 - 121 U/L 10/09/2014 4:32 PM EDT [facility] 10/09/2014 3:27 PM EDT 10/09/2014 3:28 PM EDT Ivonne Thomas DO LAB [facility] [address] [place] [address] documented in this encounter Visit Diagnoses Diagnosis Pure hypercholesterolemia LFT elevation Other abnormal blood chemistry documented in this encounter Care Teams Certified Detention Deputy Relationship Specialty Start Date End Date Name, MD Luke PCP - General 12/02/08 09/21/14 Yoel Cervantes MD [address] [place] [address] PCP - General Internal Medicine 06/24/15 12/21/20 Yoel Cervantes MD [address] [place] [address] 50841 PCP - General 09/22/14 06/23/15 Suman Lu PA-C [address] [place] [address] PCP - General Internal Medicine 12/22/20 Chari Dee MD [address] [place] [address] Specialist Cardiology 07/25/23 documented as of this encounter
--- OUTSIDE RECORDS SUMMARY | 2024-12-04 13:57 | XMS_ITS | Encounter Summary ---
Author Organization [facility] Address [address] [place] [address] Care Team Providers Care Animal Humane Agent Supervisor Name Role Phone Yoel Cervantes MD Primary Care Provider [phone] Suman Lu PA-C Primary Care Provider + [phone] Chari Dee MD Unavailable [phone] Reason for Visit * Reason Onset Date Comments Faxed Order 05/09/2020 Allied health Encounter Details Date Type Department Care Team Description 05/09/2020 Telephone Adult Medicine [address] [phone] Yoel Cervantes MD [address] [place] [address] [phone] Faxed Order (Allied health ) Social History Tobacco Use Types Packs/Day [...] encounter Miscellaneous Notes * Telephone Encounter - Rhonda Chand - 05/09/2020 1:19 PM EDT Placed in doctors bin: allied health Please Review, Sign & Fax when completed. documented in this encounter Plan of Treatment Not on file documented as of this encounter Visit Diagnoses Not on filedocumented in this encounter Care Teams Animal Humane Agent Supervisor Relationship Specialty Start Date End Date Yoel Cervantes MD [address] [place] [address] 9[address] PCP - General Internal Medicine 06/24/15 12/21/20 Suman Lu PA-C [address] [place] [address] 7[address] PCP - General Internal Medicine 12/22/20 Chari Dee MD [address] [place] [address] Specialist Cardiology 07/25/23 documented as of this encounter
--- OUTSIDE RECORDS SUMMARY | 2024-12-04 13:57 | XMS_ITS | Encounter Summary ---
Author Organization [facility] Address [address] [place] [address] Care Team Providers Care Assistant Film Editor Name Role Phone Suman Lu PA-C Primary Care Provider +[phone] Chari Dee MD Unavailable [phone] Reason for Visit * Reason Onset Date Comments VNA Call 11/23/2023 Encounter Details Date Type Department Care Team Description 11/23/2023 Telephone Adult Medicine [address] [address] Suman Lu PA-C [address] [place] [address] [phone] VNA Call Social History Tobacco Use Types [...] Telephone Encounter - Suman Lu PA-C - 11/23/2023 10:04 PM EDT Noted. * Telephone Encounter - Sree Toledo L.P.N. - 11/23/2023 4:16 PM EDT See FYI from VNA * Telephone Encounter - Lisandra Ben - 11/23/2023 3:41 PM EDT VNA CALL Which VNA office is calling? [facility] Care Full name of caller: Carlyn The caller is A nurse Is the caller at the patients home?: YES Reason for call: FYI to pcp VNA will continue skill nusing for once a week for 9 weeks Does caller need an urgent call back? NO Was CONTACT obtained above?: YES Fax #: documented in this encounter Plan of Treatment Not on file documented as of this encounter Visit Diagnoses Not on filedocumented in this encounter Care Teams Assistant Film Editor Relationship Specialty Start Date End Date Suman Lu PA-C [address] [place] [address] PCP - General Internal Medicine 12/22/20 Chari Dee MD [address] [place] [address] Specialist Cardiology 07/25/23 documented as of this encounter
--- OUTSIDE RECORDS SUMMARY | 2024-12-04 13:57 | XMS_ITS | Encounter Summary ---
Author Organization [facility] Address [address] [place] [address] Care Team Providers Care Special Machine Stitcher Name Role Phone Yoel Cervantes MD Primary Care Provider +[phone] Suman Lu PA-C Primary Care Provider +[phone] Chari Dee MD Unavailable [phone] Encounter Details Date Type Department Care Team Description 01/09/2020 Home Health Certification Medical Records [address] [place] [address] Social History Tobacco Use Types Packs/Day Years [...] on filedocumented in this encounter Care Teams Special Machine Stitcher Relationship Specialty Start Date End Date Yoel Cervantes MD [address] [place] [address] [phone] PCP - General Internal Medicine 06/24/15 12/21/20 Suman Lu PA-C [address] [place] [address] [phone] PCP - General Internal Medicine 12/22/20 Chari Dee MD [address] [place] [address] Specialist Cardiology 07/25/23 documented as of this encounter
--- OUTSIDE RECORDS SUMMARY | 2024-12-04 13:57 | XMS_ITS | Encounter Summary ---
Author Organization [facility] Address [address] [place] [address] Care Team Providers Care Medical Insurance Claims Specialist Name Role Phone Yoel Cervantes MD Primary Care Provider +[phone] Suman Lu PA-C Primary Care Provider +[phone] Chari Dee MD Unavailable [phone] Encounter Details Date Type Department Care Team Description 09/19/2019 Hospital Medical Records [address] [place] [address] Neal Riddle Social History Tobacco Use Types Packs/Day Years [...] filedocumented in this encounter Care Teams Medical Insurance Claims Specialist Relationship Specialty Start Date End Date Yoel Cervantes MD [address] [place] [address] [phone] PCP - General Internal Medicine 06/24/15 12/21/20 Suman Lu PA-C [address] [place] [address] [phone] PCP - General Internal Medicine 12/22/20 Chari Dee MD [address] [place] [address] Specialist Cardiology 07/25/23 documented as of this encounter
--- OUTSIDE RECORDS SUMMARY | 2024-12-04 13:57 | XMS_ITS | Encounter Summary ---
Author Organization [facility] Address [address] [place] [address] Care Team Providers Care Back Wedger Name Role Phone Yoel Cervantes MD Primary Care Provider +[phone] Suman Lu PA-C Primary Care Provider +[phone] Chari Dee MD Unavailable [phone] Encounter Details Date Type Department Care Team Description 09/23/2019 [facility] Medical Records [address] [place], [place] [id number] Abstract, Provider Social History Tobacco Use Types [...] on filedocumented in this encounter Care Teams Back Wedger Relationship Specialty Start Date End Date Yoel Cervantes MD [address] [place] [address] [phone] PCP - General Internal Medicine 06/24/15 12/21/20 Suman Lu PA-C [address] [place] [address] [phone] PCP - General Internal Medicine 12/22/20 Chari Dee MD [address] [place] [address] Specialist Cardiology 07/25/23 documented as of this encounter
--- OUTSIDE RECORDS SUMMARY | 2024-12-04 13:57 | XMS_ITS | Encounter Summary ---
Author Organization [facility] Address [address] [place] [address] Care Team Providers Care Motorcyles Final Inspector Name Role Phone Yoel Cervantes MD Primary Care Provider +1 [phone] Suman Lu PA-C Primary Care Provider + [phone] Chari Dee MD Unavailable [phone] Encounter Details Date Type Department Care Team Description 01/02/2020 Percussion Instructor Report Medical Records [address] [place] [address] Wm Mackenzie PA [address] [place] [address] [phone] Social History Tobacco Use Types Packs/Day Years [...] on filedocumented in this encounter Care Teams Motorcyles Final Inspector Relationship Specialty Start Date End Date Yoel Cervantes MD [address] [place] [address] 13481 PCP - General Internal Medicine 06/24/15 12/21/20 Suman Lu PA-C [address] [place] [address] PCP - General Internal Medicine 12/22/20 Chari Dee MD [address] [place] [address] Specialist Cardiology 07/25/23 documented as of this encounter
--- OUTSIDE RECORDS SUMMARY | 2024-12-04 13:57 | XMS_ITS | Encounter Summary ---
Author Organization [facility] Address [address] [place] [address] Care Team Providers Care Plastic Tubing Insulation Supervisor Name Role Phone Yoel Cervantes MD Primary Care Provider +1 [phone] Suman Lu PA-C Primary Care Provider +[phone] Chari Dee MD Unavailable [phone] Encounter Details Date Type Department Care Team Description 09/07/2020 [facility] Medical Records [address] [place] [address] Skyler Burks, DO Social History Tobacco Use Types Packs/Day Years [...] on filedocumented in this encounter Care Teams Plastic Tubing Insulation Supervisor Relationship Specialty Start Date End Date Yoel Cervantes MD [address] [place] [address] [phone] PCP - General Internal Medicine 06/24/15 12/21/20 Suman Lu PA-C [address] [place] [address] [phone] PCP - General Internal Medicine 12/22/20 Chari Dee MD [address] [place] [address] Specialist Cardiology 07/25/23 documented as of this encounter
--- OUTSIDE RECORDS SUMMARY | 2024-12-04 13:57 | XMS_ITS | Encounter Summary ---
Author Organization [facility] Address [address] [place] [address] Care Team Providers Care Surg Physician Asst Name Role Phone Yoel Cervantes MD Primary Care Provider +[phone] Suman Lu PA-C Primary Care Provider + -[phone] Chari Dee MD Unavailable [phone] Encounter Details Date Type Department Care Team Description 10/29/2019 Fluorescent Solution Mixer Report Medical Records [address] [place] [address] Wm Mackenzie PA [address] [place] [address] [phone] Social History Tobacco Use Types Packs/Day Years [...] on filedocumented in this encounter Care Teams Surg Physician Asst Relationship Specialty Start Date End Date Yoel Cervantes MD [address] [place] [address]267 PCP - General Internal Medicine 06/24/15 12/21/20 Suman Lu PA-C [address] [place] [address] PCP - General Internal Medicine 12/22/20 Chari Dee MD [address] [place] [address] Specialist Cardiology 07/25/23 documented as of this encounter
--- OUTSIDE RECORDS SUMMARY | 2024-12-04 13:57 | XMS_ITS | Encounter Summary ---
Author Organization [facility] Address [address] [place] [address] Care Team Providers Care Slab Stripper Name Role Phone Yoel Cervantes MD Primary Care Provider +[phone] Suman Lu PA-C Primary Care Provider +[phone] Chari Dee MD Unavailable [phone] Encounter Details Date Type Department Care Team Description 06/02/2020 Home Health Certification Medical Records [address] [place] [address] Social History Tobacco Use Types Packs/Day Years [...] have Coronavirus / COVID-19? No / Unsure 06/03/2020 10:08 AM EST documented as of this encounter Plan of Treatment Not on file documented as of this encounter Visit Diagnoses Not on filedocumented in this encounter Care Teams Slab Stripper Relationship Specialty Start Date End Date Yoel Cervantes MD [address] [place] [address] PCP - General Internal Medicine 06/24/15 12/21/20 Suman Lu PA-C [address] [place] [address] PCP - General Internal Medicine 12/22/20 Chari Dee MD [address] [place] [address] Specialist Cardiology 07/25/23 documented as of this encounter
--- OUTSIDE RECORDS SUMMARY | 2024-12-04 13:57 | XMS_ITS | Encounter Summary ---
Author Organization [facility] Address [address] [place] [address] Care Team Providers Care Tape Deck Installer Name Role Phone Yoel Cervantes MD Primary Care Provider +[phone] Suman Lu PA-C Primary Care Provider +[phone] Chari Dee MD Unavailable [phone] Encounter Details Date Type Department Care Team Description 03/27/2020 Shop Cooper Report Medical Records [address] [place] [address] Suman Mark [address] [place] [address] Social History Tobacco Use Types Packs/Day Years [...] on filedocumented in this encounter Care Teams Tape Deck Installer Relationship Specialty Start Date End Date Yoel Cervantes MD [address] [place] [address] [phone] PCP - General Internal Medicine 06/24/15 12/21/20 Suman Lu PA-C [address] [place] [address] [phone] PCP - General Internal Medicine 12/22/20 Chari Dee MD [address] [place] [address] Specialist Cardiology 07/25/23 documented as of this encounter
--- OUTSIDE RECORDS SUMMARY | 2024-12-04 13:57 | XMS_ITS | Encounter Summary ---
Author Organization [facility] Address [address] [place] [address] Care Team Providers Care Hat Finishing Materials Preparer Name Role Phone Yoel Cervantes MD Primary Care Provider + [phone] Yoel Cervantes MD Primary Care Provider + [phone] Suman Lu PA-C Primary Care Provider +[phone] Chari Dee MD Unavailable [phone] Encounter Details Date Type Department Care Team Description 03/04/2015 Package Liner Report Medical Records [address] [place] [address] Abstract, Provider Social History Tobacco Use Types [...] on filedocumented in this encounter Care Teams Hat Finishing Materials Preparer Relationship Specialty Start Date End Date Yoel Cervantes MD [address] [place] [address] PCP - General Internal Medicine 06/24/15 12/21/20 Yoel Cervantes MD [address] [place] [address] 388[address] PCP - General 09/22/14 06/23/15 Suman Lu PA-C [address] [place] [address] [phone] PCP - General Internal Medicine 12/22/20 Chari Dee MD [address] [place] [address] [phone] Specialist Cardiology 07/25/23 documented as of this encounter
--- OUTSIDE RECORDS SUMMARY | 2024-12-04 13:57 | XMS_ITS | Encounter Summary ---
Author Organization [facility] Address [address] [place] [address] Care Team Providers Care Electric Wheelchair Repairer Name Role Phone Suman Lu PA-C Primary Care Provider +1 [phone] Chari Dee MD Unavailable [phone] Encounter Details Date Type Department Care Team Description 09/21/2023 SCAN Medical Records [address] [place] [address] [facility] Social History Tobacco Use Types [...] on filedocumented in this encounter Care Teams Electric Wheelchair Repairer Relationship Specialty Start Date End Date Suman Lu PA-C [address] [place], [place] [phone] PCP - General Internal Medicine 12/22/20 Chari Dee MD [address] [place], [place] [phone] Specialist Cardiology 07/25/23 documented as of this encounter
--- OUTSIDE RECORDS SUMMARY | 2024-12-04 13:57 | XMS_ITS | Encounter Summary ---
Author Organization [facility] Address [address] [place] [address] Care Team Providers Care Contract Design Agent Name Role Phone Suman Lu PA-C Primary Care Provider +1 [phone] Chari Dee MD Unavailable [phone] Encounter Details Date Type Department Care Team Description 09/29/2023 Home Health Certification Medical Records [address] [place] [address] Abstract, Provider Social History Tobacco Use Types [...] on filedocumented in this encounter Care Teams Contract Design Agent Relationship Specialty Start Date End Date Suman Lu PA-C [address] [place], [place] [phone] PCP - General Internal Medicine 12/22/20 Chari Dee MD [address] [place], [place] [phone] Specialist Cardiology 07/25/23 documented as of this encounter
--- OUTSIDE RECORDS SUMMARY | 2024-12-04 13:57 | XMS_ITS | Encounter Summary ---
Author Organization [facility] Address [address] [place] [address] Care Team Providers Care Consolidation Accountant Name Role Phone Yoel Cervantes MD Primary Care Provider + [phone] Suman Lu PA-C Primary Care Provider + [phone] Chari Dee MD Unavailable [phone] Reason for Visit * Reason Comments E-prescribe Rx Request Encounter Details Date Type Department Care Team Description 02/26/2020 Refill Adult Medicine [address] [phone] Yoel Cervantes MD [address] [place] [address] [phone] E-prescribe Rx Request Social History Tobacco Use [...] encounter Miscellaneous Notes * Telephone Encounter - Angel Baker M.A. - 02/27/2020 1:40 PM EDT Faxed to pharmacy * Telephone Encounter - Ijeoma Gallardo M.A. - 02/26/2020 2:46 PM EDT Lab Results Component Value Date HGBA1C 7.4 02/19/2019 MALBUR 15.0 02/20/2019 MALBCR 9.0 02/20/2019 CHOL 133 02/19/2019 LDL 43 02/19/2019 HDL 33 02/19/2019 TRIG 286 02/19/2019 GLU 184 02/19/2019 CREAT 1.01 02/19/2019 * Telephone Encounter - Anitha Foster - 02/26/2020 2:27 PM EDT Patient would like script to be: E-PRESCRIBED/FAXED TO PHARMACY WHEN WAS THE PATIENT'S LAST APPOINTMENT IN ADULT MEDICINE? 08/16/2019 WHEN WAS THE LAST TIME THE PATIENT SAW THEIR PCP? 1029/ Does patient have an upcoming appointment? No-patient refused appointment, will call back to book appointment (THE MEDICATION REQUESTED IS ON THE MED [...] N/A Patients current insurance carrier is: Payor: [employer] FFS / Plan: [employer] ALLIANCE / Product Type: MEDICAID RISK * Telephone Encounter - Milagro Humphreys - 02/26/2020 2:22 PM EDT Patient would like script to be: E-PRESCRIBED/FAXED TO PHARMACY WHEN WAS THE PATIENT'S LAST APPOINTMENT IN ADULT MEDICINE? 07/30/19 WHEN WAS THE LAST TIME THE PATIENT SAW THEIR PCP? 05/15/19 Does patient have an upcoming appointment? Spoke with Nelia roberts's kaity sylvester would like patient in for a hospital followup ,essage sent to nurse (THE MEDICATION REQUESTED IS ON THE MED [...] N/A Patients current insurance carrier is: Payor: [employer] FFS / Plan: [employer]IANCE / Product Type: MEDICAID RISK documented in this encounter Plan of Treatment Not on file documented as of this encounter Visit Diagnoses Not on filedocumented in this encounter Care Teams Consolidation Accountant Relationship Specialty Start Date End Date Yoel Cervantes MD [address] [place] [address] [phone] PCP - General Internal Medicine 06/24/15 12/21/20 Suman Lu PA-C [address] [place] [address] PCP - General Internal Medicine 12/22/20 Chari Dee MD [address] [place] [address] Specialist Cardiology 07/25/23 documented as of this encounter
--- OUTSIDE RECORDS SUMMARY | 2024-12-04 13:57 | XMS_ITS | Encounter Summary ---
Author Organization [facility] Address [address] [place] [address] Care Team Providers Care Jump Iron Machine Presser Name Role Phone Suman Lu PA-C Primary Care Provider +1 [phone] Chari Dee MD Unavailable [phone] Reason for Visit * Reason Onset Date Comments VNA Call 08/24/2023 Encounter Details Date Type Department Care Team Description 08/24/2023 Telephone Adult Medicine [address] [address] Suman Lu PA-C [address] [place] [address] [phone] VNA Call Social History Tobacco Use Types [...] Telephone Encounter - Suman Lu PA-C - 08/24/2023 9:00 PM EST Noted. * Telephone Encounter - Sree Toledo L.P.N. - 08/24/2023 4:55 PM EST SEE Tello * Telephone Encounter - Denise Mcqueen - 08/24/2023 4:28 PM EST VNA CALL Which VNA office is calling? [facility] Full name of caller: Carlyn The caller is A nurse Is the caller at the patients home?: NO Reason for call: Carlyn states that the patient's psychiatrist had recently changed the dosage and directions for Lamotrigine (LAMICTAL). The psychiatrist states that he is to take 100 MG in the morning and 200 MG at night. Does caller need an urgent call back? NO Was CONTACT Telephone # obtained above?: YES Fax #: documented in this encounter Plan of Treatment Not on file documented as of this encounter Visit Diagnoses Not on filedocumented in this encounter Care Teams Jump Iron Machine Presser Relationship Specialty Start Date End Date Suman Lu PA-C [address] [place] [address] PCP - General Internal Medicine 12/22/20 Chari Dee MD [address] [place] [address] Specialist Cardiology 07/25/23 documented as of this encounter
--- OUTSIDE RECORDS SUMMARY | 2024-12-04 13:57 | XMS_ITS | Encounter Summary ---
Author Organization [facility] Address [address] [place] [address] Care Team Providers Care Polymerization Helper Name Role Phone Yoel Cervantes MD Primary Care Provider + [phone] Yoel Cervantes MD Primary Care Provider + [phone] Suman Lu PA-C Primary Care Provider +[phone] Chari Dee MD Unavailable [phone] Encounter Details Date Type Department Care Team Description 04/25/2015 Lease Broker Report Medical Records [address] [place] [address] Abstract, Provider Social History Tobacco Use Types [...] on filedocumented in this encounter Care Teams Polymerization Helper Relationship Specialty Start Date End Date Yoel Cervantes MD [address] [place] [address] 0[address]66 PCP - General Internal Medicine 06/24/15 12/21/20 Yoel Cervantes MD [address] [place] [address] 36413 PCP - General 09/22/14 06/23/15 Suman Lu PA-C [address] [place] [address] [phone] PCP - General Internal Medicine 12/22/20 Chari Dee MD [address] [place] [address] [phone] Specialist Cardiology 07/25/23 documented as of this encounter
--- OUTSIDE RECORDS SUMMARY | 2024-12-04 13:57 | XMS_ITS | Encounter Summary ---
Author Organization [facility] Address [address] [place] [address] Care Team Providers Care Extra Gang Supervisor Name Role Phone Yoel Cervantes MD Primary Care Provider +[phone] Suman Lu PA-C Primary Care Provider +[phone] Chari Dee MD Unavailable [phone] Encounter Details Date Type Department Care Team Description 03/10/2020 Steam Press Operator Report Medical Records [address] [place] [address] Suman Mark [address] [place] [address] Social History Tobacco Use Types Packs/Day Years [...] on filedocumented in this encounter Care Teams Extra Gang Supervisor Relationship Specialty Start Date End Date Yoel Cervantes MD [address] [place] [address] 0[address] PCP - General Internal Medicine 06/24/15 12/21/20 Suman Lu PA-C [address] [place] [address] [phone] PCP - General Internal Medicine 12/22/20 Chari Dee MD [address] [place] [address]99 Specialist Cardiology 07/25/23 documented as of this encounter
--- OUTSIDE RECORDS SUMMARY | 2024-12-04 13:57 | XMS_ITS | Encounter Summary ---
Author Organization [facility] Address [address] [place] [address] Care Team Providers Care Senior Network Architect Name Role Phone Yoel Cervantes MD Primary Care Provider + [phone] Yoel Cervantes MD Primary Care Provider + [phone] Suman Lu PA-C Primary Care Provider +[phone] Chari Dee MD Unavailable [phone] Encounter Details Date Type Department Care Team Description 10/10/2014 Release of Information Medical Records [address] [place] [address] Abstract, Provider Social History Tobacco Use Types [...] filedocumented in this encounter Care Teams Senior Network Architect Relationship Specialty Start Date End Date Yoel Cervantes MD [address] [place] [address] 26677 PCP - General Internal Medicine 06/24/15 12/21/20 Yoel Cervantes MD [address] [place] [address] 48146 PCP - General 09/22/14 06/23/15 Suman Lu PA-C [address] [place], [place] [phone] PCP - General Internal Medicine 12/22/20 Chari Dee MD [address] [place] [address] [phone] Specialist Cardiology 07/25/23 documented as of this encounter
--- OUTSIDE RECORDS SUMMARY | 2024-12-04 13:57 | XMS_ITS | Encounter Summary ---
Author Organization [facility] Address [address] [place] [address] Care Team Providers Care Messenger Floorperson Name Role Phone Yoel Cervantes MD Primary Care Provider + [phone] Yoel Cervantes MD Primary Care Provider + [phone] Suman Lu PA-C Primary Care Provider +[phone] Chari Dee MD Unavailable [phone] Encounter Details Date Type Department Care Team Description 02/16/2015 Lmsw Report Medical Records [address] [place] [address] 90[address] Derek Ryan MD Social History Tobacco Use Types Packs/Day [...] on filedocumented in this encounter Care Teams Messenger Floorperson Relationship Specialty Start Date End Date Yoel Cervantes MD [address] [place] [address] 6[address] PCP - General Internal Medicine 06/24/15 12/21/20 Yoel Cervantes MD [address] [place] [address] 37[address] PCP - General 09/22/14 06/23/15 Suman Lu PA-C [address] [place] [address] [phone] PCP - General Internal Medicine 12/22/20 Chari Dee MD [address] [place] [address] [phone] Specialist Cardiology 07/25/23 documented as of this encounter
--- OUTSIDE RECORDS SUMMARY | 2024-12-04 13:57 | XMS_ITS | Encounter Summary ---
Author Organization [facility] Address [address] [place] [address] Care Team Providers Care Acoustical Logging Engineer Name Role Phone Yoel Cervantes MD Primary Care Provider +1 [phone] Suman Lu PA-C Primary Care Provider +[phone] Chari Dee MD Unavailable [phone] Reason for Visit * Reason Onset Date Comments Faxed Order 10/15/2020 [facility] #[id number] Encounter Details Date Type Department Care Team Description 10/15/2020 Telephone Adult Medicine [address] [phone] Yoel Cervantes MD [address] [place] [address] [phone] Faxed Order ([facility] #[id number]) Social History Tobacco Use Types Packs/Day Years [...] encounter Miscellaneous Notes * Telephone Encounter - Helena Garrido - 10/16/2020 11:36 AM EDT Fax orders from [facility] , please sign and fax back. * Telephone Encounter - Milagro Humphreys - 10/15/2020 1:29 PM EDT FAXED FROM [facility] IN DR. MANCERA BOX FOR SIGNATURE AND TO BE FAXED BACK TO [phone] documented in this encounter Plan of Treatment Not on file documented as of this encounter Visit Diagnoses Not on filedocumented in this encounter Care Teams Acoustical Logging Engineer Relationship Specialty Start Date End Date Yoel Cervantes MD [address] [place] [address] 57131 PCP - General Internal Medicine 06/24/15 12/21/20 Suman Lu PA-C [address] [place] [address] 98341 PCP - General Internal Medicine 12/22/20 Chari Dee MD [address] [place] [address] [phone] Specialist Cardiology 07/25/23 documented as of this encounter
--- OUTSIDE RECORDS SUMMARY | 2024-12-04 13:57 | XMS_ITS | Encounter Summary ---
Author Organization [facility] Address [address] [place] [address] Care Team Providers Care Counselor Supervisor Name Role Phone Yoel Cervantes MD Primary Care Provider +[phone] Suman Lu PA-C Primary Care Provider +[phone] Chari Dee MD Unavailable [phone] Encounter Details Date Type Department Care Team Description 05/14/2020 Home Health Certification Medical Records [address] [place] [address] Social History Tobacco Use Types Packs/Day Years [...] on filedocumented in this encounter Care Teams Counselor Supervisor Relationship Specialty Start Date End Date Yoel Cervantes MD [address] [place] [address] [phone] PCP - General Internal Medicine 06/24/15 12/21/20 Suman Lu PA-C [address] [place] [address] [phone] PCP - General Internal Medicine 12/22/20 Chari Dee MD [address] [place] [address] Specialist Cardiology 07/25/23 documented as of this encounter
--- OUTSIDE RECORDS SUMMARY | 2024-12-04 13:57 | XMS_ITS | Encounter Summary ---
Author Organization [facility] Address [address] [place] [address] Care Team Providers Care Abnormal Psychology Teacher Name Role Phone Suman Lu PA-C Primary Care Provider +[phone] Chari Dee MD Unavailable [phone] Reason for Visit * Reason Onset Date Comments PT-1 09/15/2023 Encounter Details Date Type Department Care Team Description 09/15/2023 Telephone Adult Medicine [address] [address] Suman Lu PA-C [address] [place] [address] [phone] PT-1 Social History Tobacco Use Types Packs/Day Years [...] on filedocumented in this encounter Care Teams Abnormal Psychology Teacher Relationship Specialty Start Date End Date Suman Lu PA-C [address] [place] [address] [phone] PCP - General Internal Medicine 12/22/20 Chair Dee MD [address] [place] [address] Specialist Cardiology 07/25/23 documented as of this encounter
--- OUTSIDE RECORDS SUMMARY | 2024-12-04 13:57 | XMS_ITS | Encounter Summary ---
Author Organization [facility] Address [address] [place] [address] Care Team Providers Care Family Readiness Support Assistant Name Role Phone Yoel Cervantes MD Primary Care Provider +1 [phone] Suman Lu PA-C Primary Care Provider +[phone] Chari Dee MD Unavailable [phone] Encounter Details Date Type Department Care Team Description 08/24/2020 Hospital Medical Records [address] [place] [address] Francheska Carlyn Social History Tobacco Use Types Packs/Day Years [...] on filedocumented in this encounter Care Teams Family Readiness Support Assistant Relationship Specialty Start Date End Date Yole Cervantes MD [address] [place] [address] [phone] PCP - General Internal Medicine 06/24/15 12/21/20 Suman Lu PA-C [address] [place] [address] [phone] PCP - General Internal Medicine 12/22/20 Chari Dee MD [address] [place] [address] Specialist Cardiology 07/25/23 documented as of this encounter
--- OUTSIDE RECORDS SUMMARY | 2024-12-04 13:57 | XMS_ITS | Encounter Summary ---
Author Organization [facility] Address [address] [place] [address] Care Team Providers Care Air Filler Name Role Phone Yoel Cervantes MD Primary Care Provider [phone] Suman Lu PA-C Primary Care Provider [phone] Chari Dee MD Unavailable [phone] Reason for Visit * Reason Onset Date Comments VNA Call 10/12/2020 Encounter Details Date Type Department Care Team Description 10/12/2020 Telephone Adult Medicine [address] [phone] Yoel Cervantes MD [address] [place] [address] [phone] VNA Call Social History Tobacco Use Types [...] Telephone Encounter - Sree Toledo L.P.N. - 10/13/2020 11:46 AM EDT Received discharge from [facility] * Telephone Encounter - Sree Lopez.P.NToribio - 10/13/2020 9:25 AM EDT DALTON marquis to [place]dal[place] She will fax the [facility] med sheet Appt made for a hospital follow with Dr. Huynh on 10/22 at 10 Hope you don't mind I took you preop 10 am appt on 10/22 for hospiotal follow * Telephone Encounter - Yoel Cervantes MD - 10/13/2020 8:22 AM EDT Resume orders * Telephone Encounter - Sree MeyerP.NToribio - 10/13/2020 8:21 AM EDT VNA looking for VO to resume care Please review and advise * Telephone Encounter - Joanna Fish - 10/12/2020 4:31 PM EDT VNA CALL Which [facility] office is calling? [facility] Full name of caller: [place] The caller is A nurse Is the caller at the patients home?: NO Reason for call: Pt was discharged from [facility] in [place] Would like to follow up Does caller need an urgent call back? NO Was CONTACT Telephone # obtained above?: YES Fax #: documented in this encounter Plan of Treatment Not on file documented as of this encounter Visit Diagnoses Not on filedocumented in this encounter Care Teams Air Filler Relationship Specialty Start Date End Date Yoel Cervantes MD [address] [place] [phone] PCP - General Internal Medicine 06/24/15 12/21/20 Suman Lu PA-C [address] [place], [place] [phone] PCP - General Internal Medicine 12/22/20 Chari Dee MD [address] [place] [address] [phone] Specialist Cardiology 07/25/23 documented as of this encounter
--- OUTSIDE RECORDS SUMMARY | 2024-12-04 13:57 | XMS_ITS | Encounter Summary ---
Author Organization [facility] Address [address] [place] [address] Care Team Providers Care Behavioral Health Aide Name Role Phone Yoel Cervantes MD Primary Care Provider [phone] Suman Lu PA-C Primary Care Provider [phone] Chari Dee MD Unavailable [phone] Encounter Details Date Type Department Care Team Description 10/02/2019 Estate Tax Examiner Report Medical Records [address] [place] [id number] Abstract, Provider Social History Tobacco Use Types [...] on filedocumented in this encounter Care Teams Behavioral Health Aide Relationship Specialty Start Date End Date Yoel Cervantes MD [address] [place] [address] [phone] PCP - General Internal Medicine 06/24/15 12/21/20 Suman Lu PA-C [address] [place] [address] [phone] PCP - General Internal Medicine 12/22/20 Chari Dee MD [address] [place] [address] Specialist Cardiology 07/25/23 documented as of this encounter
--- OUTSIDE RECORDS SUMMARY | 2024-12-04 13:57 | XMS_ITS | Encounter Summary ---
Author Organization [facility] Address [address] [place] [address] Care Team Providers Care Call Center Rn Name Role Phone Yoel Cervantes MD Primary Care Provider [phone] Suman Lu PA-C Primary Care Provider [phone] Chari Dee MD Unavailable [phone] Encounter Details Date Type Department Care Team Description 03/31/2020 Hospital Medical Records [address] [place] [address] [facility] Social History Tobacco Use Types Packs/Day [...] Name Priority Date/Time Associated Diagnosis Comments OUTSIDE EKG Routine 03/31/2020 OUTSIDE IMAGING Routine 03/31/2020 documented in this encounter Results * OUTSIDE IMAGING (03/31/2020) Provider Default RADIOLOGY * OUTSIDE EKG (03/31/2020) Provider Default CARDIOLOGY documented in this encounter Visit Diagnoses Not on filedocumented in this encounter Care Teams Call Center Rn Relationship Specialty Start Date End Date Yoel Cervantes MD [address] [place] [address] PCP - General Internal Medicine 06/24/15 12/21/20 Suman Lu PA-C [address] [place] [phone] PCP - General Internal Medicine 12/22/20 Chari Dee MD [address] [place] [address] [phone] Specialist Cardiology 07/25/23 documented as of this encounter
--- OUTSIDE RECORDS SUMMARY | 2024-12-04 13:57 | XMS_ITS | Encounter Summary ---
Author Organization [facility] Address [address] [place] [address] Care Team Providers Care Xm1 Tank Driver Name Role Phone Yoel Cervantes MD Primary Care Provider [phone] Yoel Cervantes MD Primary Care Provider [phone] Suman Lu PA-C Primary Care Provider [phone] Chari Dee MD Unavailable [phone] Encounter Details Date Type Department Care Team Description 10/22/2014 Wage Adjuster Report Medical Records [address] [place] [id number] Blade Lozano MD Social History Tobacco Use Types Packs/Day [...] on filedocumented in this encounter Care Teams Xm1 Tank Driver Relationship Specialty Start Date End Date Yoel Cervantes MD [address] [place] [phone] PCP - General Internal Medicine 06/24/15 12/21/20 Yoel Cervantes MD [address] [place] [phone] PCP - General 09/22/14 06/23/15 Suman Lu PA-C [address] [place] [address] [phone] PCP - General Internal Medicine 12/22/20 Chari Dee MD [address] [place] [address] [phone] Specialist Cardiology 07/25/23 documented as of this encounter
--- OUTSIDE RECORDS SUMMARY | 2024-12-04 13:57 | XMS_ITS | Clinical Summary ---
Author Organization [address] [place] [address] [place] [id number] Phone Care Team Providers Care [employer] Manager Name Role Phone Suman Lu Primary Care Provider [phone] Allergies Active Allergy Reactions Criticality Noted Date Comments Divalproex Medium 10/22/2020 oversedation Lisinopril 06/02/2005 cough Pregabalin 05/02/2018 Other Reaction(s): OTHER Lethargy weakness Medications ALPRAZolam (XANAX) 0.25 mg tablet TAKE 1 TABLET BY MOUTH EVERY DAY NEEDED FOR SEVERE ANXIETY Active carbamide peroxide (Murine Ear Wax Removal System) 6.5 % otic solution PLACE 5 DROPS INTO BOTH EARS 2 TIMES DAILY FOR 10 DAYS. TILT HEAD SO EAR TO BE TREATED POINTS TOWARDS THE CEILING. HOLD MEDICATION IN EAR USING PART OF A COTTON BALL. 024 Active aspirin 81 mg EC tablet Take 1 tablet (81 mg total) by mouth 1 (one) time each day. 022 Active alcohol swabs pads, medicated Apply 1 Applicator topically 4 times daily as needed (to clean skin prior to insulin administration) . Active clonazePAM (KlonoPIN) 0.5 mg tablet Take 1 tablet (0.5 mg total) by mouth 3 (three) times a day. Active diclofenac (VOLTAREN) 1 % topical gel Apply 4 g topically 4 times daily as needed for Other (joint pain). 024 Active insulin glargine (LANTUS) 100 unit/mL injection Inject 50 Units under the skin at bedtime. Active lamoTRIgine (LaMICtal) 100 mg tablet Active metoprolol tartrate (LOPRESSOR) 50 mg tablet Take 1 tablet (50 mg total) by mouth 2 (two) times a day. Active naproxen (NAPROSYN) 500 mg tablet Take 1 tablet by mouth 2 times daily as needed for Pain (Take with food.) for up to 30 days. Active nitroglycerin (NITROSTAT) 0.[address] 1 tablet (0.4 mg total) under the tongue every 5 (five) minutes if needed. Active promethazine (PHENERGAN) 25 mg tablet Take 1 tablet (25 mg total) by mouth every 8 (eight) hours if needed. Active fluticasone propionate (FLONASE) 50 mcg/actuation nasal spray 2 sprays in each nostril once per day for 2 weeks. Active OneTouch Ultra Test test strip USE TO TEST BLOOD SUGAR FOUR TIMES DAILY Active lancets (Micro Thin Lancets) 33 gauge [facility] [place] Lancet by Not Applicable route 4 (four) times a day. Active medical supply, miscellaneous (MISCELLANEOUS MEDICAL SUPPLY [facility] [place] CPAP HISTORICAL (HISTORICAL CPAP) Inhale into the lungs. apria Active flash glucose scanning reader (FREESTYLE ABE 2 READER [facility] [place]) 1 Units by Does not apply route as needed for Other (glucose monitoring). Active flash glucose sensor (FREESTYLE ABE 2 SENSOR [facility] [place]) 1 Units by Does not apply route every 14 days. Active blood-glucose meter kit Use to check blood sugars four times daily Active blood glucose control high,low (FreeStyle Control) solution 1 drop. 1 Drop by In Vitro route See Admin Instructions. USE WITH EVERY BOTTLE OF STRIPS Active pen needle, diabetic (BD ULTRA-FINE SHORT PEN NEEDLE [facility] [place]) Insulin Pen Needle (B-D ULTRAFINE III SHORT PEN) 31G X 8 MM [facility] [place] For E11.65 to administer insulin four times daily 07/08/2 022 Active traMADoL (ULTRAM) 50 mg tablet Take 1 Tablet by mouth every 12 hours as needed Active empagliflozin (Jardiance) 10 mg tablet TAKE 1 TABLET BY MOUTH EVERY DAY 90 tablet 3 Active cholecalciferol (VITAMIN D-3) 50 mcg (2,000 unit) capsule TAKE 1 CAPSULE BY MOUTH DAILY. 90 capsule 3 Active DULoxetine (CYMBALTA) [address] capsule Take 1 capsule (60 mg total) by mouth 1 (one) time each day. TAKE 1 CAPSULE BY MOUTH EVERY DAY TAKE WITH 30MG 90 capsule 1 Active omeprazole (PriLOSEC) [address] capsule TAKE 1 CAPSULE BY MOUTH EVERY DAY 90 capsule 1 Active atorvastatin (LIPITOR) 80 mg tablet TAKE 1 TABLET BY MOUTH EVERY DAY 90 tablet 1 Active prazosin (MINIPRESS) 1 mg capsule TAKE 1 CAPSULE BY MOUTH AT BEDTIME 90 capsule 1 Active amLODIPine (NORVASC) 10 mg tablet TAKE 1 TABLET BY MOUTH EVERY DAY 90 tablet 1 Active Admelog U-100 insulin lispro 100 unit/mL injection Inject 15 Units under the skin 3 (three) times a day before meals 10 mL 025 Active finasteride (PROSCAR) 5 mg tablet TAKE 1 TABLET BY MOUTH EVERY DAY 90 tablet 1 Active tamsulosin (FLOMAX) 0.4 mg 24 hr capsule TAKE 2 CAPSULES BY MOUTH DAILY. TAKE 30 MINS AFTER SAME MEAL EVERY DAY. 180 capsule 3 Active insulin syringe-needle U-100 0.5 mL 31 gauge x 5/16 syringe Inject 1 each as directed 3 (three) times a day. Use to administer Insulin 3 times daily 100 each 3 Active insulin syringe-needle U-100 1 mL 31 gauge x 5/16 syringe Use to inject lantus 50 unit QHS 100 each 1 Active mirtazapine (REMERON SANDRINE-TAB) 15 mg disintegrating tablet TAKE 1 TABLET BY MOUTH EVERYDAY AT BEDTIME 90 tablet 1 025 Active DULoxetine (CYMBALTA) [address] capsule TAKE 1 CAPSULE BY MOUTH DAILY. IN COMBINATION WITH 60MG FOR A DAILY TOTAL OF 90 MG. 270 capsule 1 025 Active gabapentin (NEURONTIN) 600 mg tablet TAKE 1 TABLET BY MOUTH THREE TIMES A DAY 90 tablet 5 025 Active albuterol HFA (PROAIR HFA ; PROVENTIL HFA ; VENTOLIN HFA) 90 mcg/actuation inhaler INHALE 2 PUFFS BY MOUTH EVERY 6 (SIX) HOURS IF NEEDED FOR WHEEZING, COUGH, OR SHORTNESS OF BREATH. 6.7 each 2 025 Active lamoTRIgine (LaMICtal) 200 mg tablet TAKE 1 TABLET BY MOUTH TWICE A DAY 180 tablet 3 025 Active clopidogreL (PLAVIX) 75 mg tablet TAKE 1 TABLET BY MOUTH EVERY DAY 90 tablet 025 Active econazole nitrate 1 % cream APPLY TO AFFECTED AREA TWICE DAILY X 3-4 WEEKS 60 g 1 025 Active bisacodyL (DULCOLAX) 5 mg EC tablet Take 2 tablets by mouth right before beginning bowel prep. See instructions provided by the office 2 tablet Active polyethylene glycol (Golytely) 236-22.74-6.74 -5.86 gram solution Take 4L by mouth once for one dose. May substitue any PEG. Starting at 6PM the night before your procedure drink 1 8oz glasses at your own pace until you complete half of the gallon. Finish 2nd half of the gallon 5 hours before your procedure. 4000 mL 025 Active econazole nitrate 1 % cream APPLY TO AFFECTED AREA TWICE DAILY X 3-4 WEEKS 60 g 025 2024 Discontinued Active Problems Problem Noted Date Diagnosed Date Fatty liver 12/17/2021 Cerebrovascular accident (CVA) ([facility] V24, [facility] /[facility] V28) 11/17/2021 Overview (05/10/2024): - Prior CVA ? 2 he is on monotherapy with Plavix with right lateral medullary stroke in April 2014 with right vertebral artery occlusion and significant stenosis of the cavernous segment of the left ICA by CT angiography in April 2014 but negative for significant stenoses by carotid ultrasound, followed by Dr. Ryan of neurology at -Right-sided pontine infarct October 2021 associated with left-sided weakness Diabetic ulcer of toe of lef t foot associated with type 2 diabetes mellitus, with muscle involvement without evidence of necrosis ([facility] V24, [facility] V28) 06/01/2021 Asthma 10/15/2020 Benign prostatic hyperplasia with weak urinary s tream 06/15/2020 Vertebral artery stenosis 03/11/2020 Overview (05/10/2024): Noted on imaging during hospitalization in early 2019. Did have neuro consult. No specific intervention follow-up was recommended Hyperlipidemia 02/22/2019 Overview (05/10/2024): Last Assessment & Plan: -continue high-dose statin QT prolongation 09/11/2018 Diabetes mellitus type 2 wit h peripheral artery disease ([facility] V24, [facility] V28) 08/03/2017 Overview (05/10/2024): Uncontrolled diabetes mellitus type 2 with peripheral artery disease Chronic pain 03/09/2016 Overview (05/10/2024): Controlled substance contract was canceled here in [place] in 2010. I received a phone call from [facility] in [place] stating that urine drug screen showed abnormalities and therefore they were canceling his controlled substance contract as of 2015 Gastroesophageal reflux disease 08/25/2015 Overview (05/10/2024): EGD plus biopsies +17 mm esophageal dilation 10/13/2016 at the [facility]. Esophageal biopsies normal. LA grade B esophagitis on endoscopy. Was not on PPI treatment at that time. Type 2 diabetes mellitus ([facility] V24, [facility] V 28) 09/25/2014 Personal history of stroke with residual effects 07/08/2014 Subclinical hypothyroidism 03/24/2014 Diverticulitis 03/19/2014 Diverticulosis 03/18/2014 Dementia ([facility] V24, [facility] V28) 05/20/2013 Diverticulitis of colon without hemorrhage 02/25 Overview (05/10/2024): Incidental finding at colonoscopy 02/25/2013. 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 SE 80 %. Without PAP: in REM for 0 % of this phase. AHI 53, Central apneas 0; Obstructive apneas 37; Mixed apneas 0; hypopneas 58; average oxygen saturation 94% (lowest 73%); PLMs 0. With PAP: in REM for 8%. On CPAP @ 12; AHI 1.4, Central apneas 0; Obstructive apneas 1; Mixed apneas 0; hypopneas 1; RERAs 0; and, average oxygen saturation was 96%; PLMs ~0. [facility] Polysomnogram treatment study. Date 06/15/2018 . SE 72 % SM 72 %; spent 11 % of the study in REM. On CPAP @ 14; RDI 4.2 (AHI 4.2), Central apneas 0; Obstructive apneas 0; Mixed apneas 0; hypopneas 2; RERAs 0; and, average oxygen saturation was 94%. For the entire study, PLMs ~144. [facility] Home sleep test 08/10/2020; weight 215; BMI 35. AHI 51, AI 12, AHI 39. 46 obstructive apneas and 147 hypopneas. Average oxygen saturation 91% with oxygen nayana 78%. Obstructive sleep apnea-severe with mostly hypopneas and obstructive apneas and nocturnal hypoxemia based on 2021 home sleep test. Cervical disc herniation 04/08/2011 Depression 03/28/2011 CAD (coronary artery disease) 09/15/2010 Overview (05/10/2024): - Non-STEMI in 2010-cardiac cath at the time showed 100% proximal LAD occlusion that was being fed with [id number] collaterals, severe distal LAD disease that was felt to be too small for intervention, and significant stenosis in the mid circumflex and OM1-receiving drug-eluting stents - Most recent pharmacologic nuclear stress test in May 2023 form for dyspnea on exertion symptoms showed small, mild, infarct of the inferior wall - Most recent echocardiogram in May 2023 showing mild, concentric left ventricular hypertrophy with likely normal left ventricular systolic function, regional wall motion could not be commented upon due to poor endocardial definition and the patient fused contrast enhancement, EF was likely normal, no Doppler evidence of hemodynamically significant valve disease Last Assessment & Plan: -asymptomatic at this point, continue medical management with monotherapy with Plavix for coexisting stroke diagnosis, atorvastatin 80 mg at bedtime, metoprolol 25 twice daily Allergic rhinitis 12/18/2007 Anxiety state 05/08/2007 Overview (05/10/2024): Chronically treated with bezodiazepines Cervicalgia 06/21/2006 Essential hypertension, benign 06/02/2005 Overview (05/10/2024): Last Assessment & Plan: -generally well-controlled on current regimen, continue Encounters Date Type Department Care Team Description 11/25/2024 Telephone Adult Medicine [facility] [address] [place] [address] Suman Lu PA Medication Problem 11/06/2024 Telephone Gastroenterology - [place] [address] [facility] [address] [facility] [address] [place] [address] Nicole Ruiz LPN Anticoagulation (Colonoscopy on 12/04/[address] Sheikh) from Last 3 Months Immunizations Name Administration Dates Next Due Influenza Quadravalent, MDCK , 0.5ml, preservative free (Flucelvax) 6mo and older 05/02/2019 Influenza Quadravalent, MDCK , 0.5ml, with preservative (Flucelvax) 6mo and older 05/25/2017 Influenza trivalent, 0.5mL ( Fluad) 65yo and older 09/15/2023,04/01/2021 Influenza trivalent, 0.5mL, preservative free (Fluarix; FluLaval; Fluzone) ages 6mo and older (Afluria) 3 years and older 04/14/2016,04/29/2015,05/21/2013,04/20,03/28/2011 Influenza, Unspecified 04/24/2004 Pneumococcal conjugate 20 va lent (Prevnar 20, PCV 20) 2mo and older 11/25/2022 Pneumococcal polysaccharide 23 valent (Pneumovax 23) 2yo and older 04/01/2021,04/24/2014 Td Tetanus diptheria (Tdvax) 7yo and older 11/25/2022 Tdap Tetanus diptheria acell ular pertussis (Boostrix; Adacel) 7yo and older 11/06/2012 Surgical History Surgery Date Site/Laterality Comments KNEE ARTHROSCOPY W/ MENISCAL REPAIR PROCEDURE: NJ ARTHROSCOPY KNEE W/MENISCUS RPR MEDIAL/LATERAL; COMMENT: R and L OTHER SURGICAL HISTORY 1979 PROCEDURE: [place] CLSD TX SHOULDER DISLC W/MANIPULATION W/O ANES; COMMENT: for recurrent dislocation (right) COLONOSCOPY 2012 PROCEDURE: HISTORICAL COLONOSCOPY; COMMENT: minimal diverticulosis. TONSILLECTOMY PROCEDURE: HISTORICAL TONSILLECTOMY WISDOM TOOTH EXTRACTION PROCEDURE: HISTORICAL WISDOM TEETH EXTRACTION UPPER GASTROINTESTINAL ENDOSCOPY 10/13/2016 PROCEDURE: [place] UPPER GI ENDOSCOPY PERFORMED; COMMENT: Dr. [email or web address]; class B reflux esophagitis; dilated 17 mm Savary dilator; esophageal biopsies were normal. Resumption of PPI treatment recommended. COLONOSCOPY 11/07/2018 PROCEDURE: HISTORICAL COLONOSCOPY; COMMENT: 3 mm AC polyp; random bx: tubular adenoma and random bx normal. UPPER GASTROINTESTINAL ENDOSCOPY 11/07/2018 PROCEDURE: [place] UPPER GI ENDOSCOPY PERFORMED; COMMENT: grade A reflux esophagitis on H2 rx. Duodenal bx normal. OTHER SURGICAL HISTORY 2010 PROCEDURE: HISTORY OTHER; COMMENT: Cervical spine surgery, on 2010 Medical History Medical History Date Comments Tear of medial cartilage or meniscus of knee, current 03/25/05 DX:Tear of medial cartilage or meniscus of knee, current; COMMENT: R and L Other postprocedural status(V45.89) DX:Other postprocedural status(V45.89) Displacement of cervical intervertebral disc without myelopathy DX:Displacement of cervical intervertebral disc without myelopathy Cervicalgia 06/21/2006 DX:Cervicalgia Insomnia 10/17/2012 DX:Insomnia Diverticulosis of colon (wit hout mention of hemorrhage) 02/25/2013 DX:Diverticulosis of colon ( without mention of hemorrhage); COMMENT: Incidental finding at colonoscopy 02/25/2013. Chronic pain 03/09/2016 DX:Chronic pain; COMMENT: Controlled substance contract was canceled here in [place] in 2010. [facility] [place] stating that urine drug screen showed abnormalities and therefore they were canceling his controlled substance contract as of 2015 Essential hypertension, benign 06/02/2005 D X:Essential hypertension, benign Anxiety state 05/08/2007 DX:Anxiety state ; COMMENT: Chronically treated with bezodiazepines Allergic rhinitis 12/18/2007 DX:Allergic rh initis CAD (coronary artery disease) 09/15/2010 DX :CAD (coronary artery disease); COMMENT: status post non-ST segment elevation ME last week. The patient had drug-eluting stents placed in 2010 Depression 03/28/2011 DX:Depression Cervical disc herniation 04/08/2011 DX:Cerv ical disc herniation PEEWEE (obstructive sleep apnea) 07/27/2012 DX :PEEWEE (obstructive sleep apnea); COMMENT: Using CPAP machine [facility] Split Night Polysomnogram Date 07/02/2012. SE 80 %. Without PAP: in REM for 0 % of this phase. AHI 53, Central apneas 0; Obstructive apneas 37; Mixed apneas 0; hypopneas 58; average oxygen saturation 94% (lowest 73%); PLMs 0. With PAP: in REM for 8%. 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 Dementia ([facility] V24, [facility] V28) 05/20/2013 DX:Dementia ([facility]) Family history of coagulation disorder 05/20/2013 DX:Family history of coagulation disorder Diverticulosis 03/18/2014 DX:Diverticulosi s Diverticulitis 03/19/2014 DX:Diverticuliti s Subclinical hypothyroidism 03/24/2014 DX:Rabago bclinical hypothyroidism Personal history of stroke w ith residual effects 07/08/2014 DX:Personal history of strok e with residual effects Diabetes mellitus type II, uncontrolled 09/25/2014 DX:Diabetes mellitus type II , uncontrolled Gastroesophageal reflux disease 08/25/2015 DX:Gastroesophageal reflux disease; COMMENT: EGD plus biopsies +17 mm esophageal dilation 10/13/2016 at the [facility]. Esophageal biopsies normal. LA grade B esophagitis on endoscopy. Was not on PPI treatment at that time. Type 2 diabetes mellitus wit h diabetic polyneuropathy, without long-term current use of insulin ([facility] V24, [facility] V28) 08/03/2017 DX:Type 2 diabetes mellitus with diabetic polyneuropathy, without long-term current use of insulin ([facility]) Hyperlipidemia 02/22/2019 DX:Hyperlipidemi a Asthma 10/15/2020 DX:Asthma Bronchitis DX:Bronchitis Cerebrovascular disease DX:Cereb rovascular disease Family History Medical History Relation Name Comments Arthritis Father CABG Father 2 quadruple bip ass, 2 cardiac stents (age 50) Heart attack Father CABG Mother age 66 Relation Name Status Comments Brother Alive CAD Father Alive CAD cabg x2n fi rst at age 50 Mother (Age 74) ?? his of valve replacement Sister 1 Alive stent Sister 2 Alive Social History Tobacco Use Types Packs/Day Years Used Date Smoking Tobacco: Never Smokeless Tobacco: Never Alcohol Use Standard Drinks/Week Comments No 0 (1 standard drink = 0.6 oz pur e alcohol) Sex and Gender Information Value Date Recorded Sex Assigned at Not on file Legal Sex Male 10:19 PM EST Gender Identity Not on file Sexual Orientation Not on file Obstetrics History Last Filed Vital Signs Vital Sign Reading Time Taken Comments Blood Pressure 118/72 06/28/2024 12:31 PM EST Pulse 76 06/28/2024 12:31 PM EST Temperature 36.4 ??C (97.5 ??F) 06/28/2024 12:[address] Respiratory Rate 16 06/28/2024 12:31 PM EST Oxygen Saturation - - Inhaled Oxygen Concentration - - Weight 97.1 kg (214 lb) 06/28/2024 12:31 PM EST Height 152.4 cm (5') 06/28/2024 12:31 PM EST Body Mass Index 41.79 06/28/2024 12:31 PM EST Plan of Treatment Upcoming Encounters Date Type Department Care Team (Late st Contact Info) Description 03/04/2025 11:00 AM EDT Appointment [facility] Endoscopy [address] [place] [address] Gali Sheikh MD [address] [facility] [address] [place] [address] Health Maintenance Due Date Last Done Comments Hepatitis A Vaccines (1 of 2 - Risk 2-dose series) 1974 Zoster Vaccines (1 of 2) 2005 Hepatitis B Vaccines (1 of 3 - Risk 3-dose series) 2015 RSV Immunization Adult Patients (1 - Risk 60-74 years 1-dose series) 2015 Falls Risk Assessment 06/25/2022 Social Influencers of Health Screening 06/25/2022 Diabetes: Annual Urine Albumin-Creatinine Ratio (uACR) 12/17/2022 12/17/2021 Colorectal Cancer Screening: Colonoscopy 11/08/2023 11/07/2018 COVID-19 Vaccine ( season) 2024 12/10/2020, 11/12/2020, 07/14/2020 Diabetes: Annual Foot Exam 09/07/2024 09/07/2023 Diabetes: Blood Sugar Control Test (HGBA1C) 12/27/2024 06/28/2024, 02/26/2024, 02/26/2024 Depression Screening 02/25/2025 02/26/2024 Influenza Vaccine (Season Ended) 2025 09/15/2023, 04/01/2021, 05/02/2019, Additional history exists Diabetes: Annual Retina Eye Exam 06/24/2025 06/24/2024 Diabetes: Annual GFR (Glomerular Filtration Rate) 06/28/2025 06/28/2024, 02/26/2024, 11/11/2019, Additional history exists Hypertension/CHF/CAD Annual BMP Blood Test 06/28/2025 06/28/2024, 02/26/2024, 11/11/2019, Additional history exists Cholesterol Screening (Lipid Panel) 06/28/2029 06/28/2024, 02/26/2024, 02/26/2024, Additional history exists DTaP,Tdap,and Td Vaccines (3 - Td or Tdap) 11/25/2032 11/25/2022, 11/06/2012 Hepatitis C Screening Completed 05/27/2014 Pneumococcal Vaccine: 50+ Years Completed 11/25/2022, 04/01/2021, 04/24/2014 HIB Vaccines Aged Out No longer eligi ble based on patient's age to complete this topic HPV Vaccines Aged Out No longer eligi ble based on patient's age to complete this topic IPV Vaccines Aged Out No longer eligi ble based on patient's age to complete this topic MMR Vaccines Aged Out No longer eligi ble based on patient's age to complete this topic Meningococcal ACWY Vaccine Aged Out N o longer eligible based on patient's age to complete this topic Meningococcal B Vaccine Aged Out No l onger eligible based on patient's age to complete this topic RSV Immunization Patients Under 20 months Aged Out No longer eligible based on patient's age to complete this topic Varicella Vaccines Aged Out No longer eligible based on patient's age to complete this topic Procedures Procedure Name Priority Date/Time Associated Diagnosis Comments EXTERNAL XRAY REPORT 10/08/2024 EXTERNAL XRAY REPORT 10/08/2024 COMPREHENSIVE METABOLIC PANEL Routine 06/28/2024 1:29 PM EST Screening for malignant neoplasm of colon Essential hypertension, benign Depression, unspecified depression type PEEWEE (obstructive sleep apnea) Coronary artery disease due to lipid rich plaque Dementia, unspecified dementia severity, unspecified dementia type, unspecified whether behavioral, psychotic, or mood disturbance or anxiety ([facility] V24, [facility] V28) Subclinical hypothyroidism Type 2 diabetes mellitus with other specified complication, without long-term current use of insulin ([facility] V24, [facility] V28) Diabetes mellitus type 2 with peripheral artery disease ([facility] V24, [facility] V28) Hyperlipidemia, unspecified hyperlipidemia type Benign prostatic hyperplasia with weak urinary stream Cerebrovascular accident (CVA), unspecified mechanism ([facility] V24, [facility] V28) HEMOGLOBIN A1C Routine 06/28/2024 1:29 PM EST Screening for malignant neoplasm of colon Essential hypertension, benign Depression, unspecified depression type PEEWEE (obstructive sleep apnea) Coronary artery disease due to lipid rich plaque Dementia, unspecified dementia severity, unspecified dementia type, unspecified whether behavioral, psychotic, or mood disturbance or anxiety ([facility] V24, [facility] V28) Subclinical hypothyroidism Type 2 diabetes mellitus with other specified complication, without long-term current use of insulin ([facility] V24, [facility] V28) Diabetes mellitus type 2 with peripheral artery disease ([facility] V24, [facility] V28) Hyperlipidemia, unspecified hyperlipidemia type Benign prostatic hyperplasia with weak urinary stream Cerebrovascular accident (CVA), unspecified mechanism ([facility] V24, [facility] V28) LIPID PANEL WITH REFLEX TO DIRECT LDL Routine 06/28/2024 1:29 PM EST Screening for malignant neoplasm of colon Essential hypertension, benign Depression, unspecified depression type PEEWEE (obstructive sleep apnea) Coronary artery disease due to lipid rich plaque Dementia, unspecified dementia severity, unspecified dementia type, unspecified whether behavioral, psychotic, or mood disturbance or anxiety ([facility] V24, [facility] V28) Subclinical hypothyroidism Type 2 diabetes mellitus with other specified complication, without long-term current use of insulin ([facility] V24, [facility] V28) Diabetes mellitus type 2 with peripheral artery disease ([facility] V24, [facility] V28) Hyperlipidemia, unspecified hyperlipidemia type Benign prostatic hyperplasia with weak urinary stream Cerebrovascular accident (CVA), unspecified mechanism ([facility] V24, [facility] V28) DEPRESSION SCREENING Routine 02/26/2024 DIABETES FOOT EXAM Routine 09/07/2023 URINE ALBUMIN CREATININE RATIO Routine 12/17/2021 COLONOSCOPY Routine 11/07/2018 HEPATITIS C SCREENING Routine 05/27/2014 from Last 3 Months or Most Recently Relevant to Health Maintenance Results * External Xray Report (10/08/2024) Only the most recent of2 resultswithin the time period is included. Anatomical Region Laterality Modality Radiographic Pam ging Provider [place] [facility] IMG XR PROCEDURES Final Result * (ABNORMAL) Lipid panel with reflex to direct LDL (06/28/2024 1:29 PM EST) Cholesterol 142 0 - 200 mg/dL LAB CHEMISTRY METHOD 06/28/2024 5:05 PM EST [facility] Triglycerides 253(H) 0 - 150 mg/dL LAB CHEMISTRY METHOD 06/28/2024 5:05 PM EST [facility] HDL 35(L) >=40 mg/dL LAB CHEMISTRY METHOD 06/28/2024 5:05 PM [facility] LDL Calculated 56 0 - 100 mg/dL LAB CHEMISTRY METHOD 06/28/2024 5:05 PM [facility] VLDL Cholesterol Schuyler 50.6 mg/dL LAB CHEMISTRY METHOD 06/28/2024 5:05 PM [facility] Non HDL Chol. (LDL+VLDL) 107 <145 mg/dL LAB CHEMISTRY METHOD 06/28/2024 5:05 PM EST [facility] Chol/HDL Ratio 4.1 0.0 - 4.4 LAB CHEMISTRY METHOD 06/28/2024 5:05 PM [facility] Blood Venous blood specimen / Unknown Venipuncture / Unknown 06/28/2024 1:29 PM EST 06/28/2024 1:29 PM EST Suman CARDONA LAB BLOOD ORDERABLES Lilian l Result [facility] [address] [place] [address], * (ABNORMAL) Hemoglobin A1c (06/28/2024 1:29 PM EST) Hemoglobin A1C 8.3(H) <6.5 % LAB CHEMISTRY METHOD 06/28/2024 8:49 PM EST [facility] Mean Bld Glu Estim. 192 mg/dL LAB CHEMISTRY METHOD 06/28/2024 8:49 PM EST [facility] Blood Venous blood specimen / Unknown Venipuncture / Unknown 06/28/2024 1:29 PM EST 06/28/2024 1:29 PM EST Suman CARDONA LAB BLOOD ORDERABLES Lilian l Result [facility] [address] [place] [address], * (ABNORMAL) Comprehensive metabolic panel (06/28/2024 1:29 PM EST) Sodium 141 133 - 145 mmol/L LAB CHEMISTRY METHOD 06/28/2024 5:05 PM [facility] Potassium 4.0 3.5 - 5.5 mmol/L LAB CHEMISTRY METHOD 06/28/2024 5:05 PM [facility] Chloride 101 96 - 110 mmol/L LAB CHEMISTRY METHOD 06/28/2024 5:05 PM [facility] CO2 32 21 - 32 mmol/L LAB CHEMISTRY METHOD 06/28/2024 5:05 PM [facility] Anion Gap 8 3 - 11 LAB CHEMISTRY METHOD 06/28/2024 5:05 PM [facility] Glucose 179(H) 70 - 100 mg/dL LAB CHEMISTRY METHOD 06/28/2024 5:05 PM [facility] BUN 8 5 - 25 mg/dL LAB CHEMISTRY METHOD 06/28/2024 5:05 PM [facility] Creatinine 0.82 0.70 - 1.30 mg/dL LAB CHEMISTRY METHOD 06/28/2024 5:05 PM [facility] eGFR 96 >=60 mL/min/1. 73m2 LAB CHEMISTRY METHOD 06/28/2024 5:05 PM [facility] Comment:Calculation based on the??Chronic Kidney Disease Epidemiology Collaboration (CKD-EPI) equation refit??without adjustment for race. BUN/Creatinine Ratio 9.8 LAB CHEMISTRY METHOD 06/28/2024 5:05 PM [facility] Calcium 8.7 8.5 - 10.5 mg/dL LAB CHEMISTRY METHOD 06/28/2024 5:05 PM [facility] AST (SGOT) 21 10 - 42 unit/L LAB CHEMISTRY METHOD 06/28/2024 5:05 PM [facility] ALT (SGPT) 33 10 - 60 unit/L LAB CHEMISTRY METHOD 06/28/2024 5:05 PM EST [facility] Alkaline Phosphatase 87 42 - 121 unit/L LAB CHEMISTRY METHOD 06/28/2024 5:05 PM [facility] Total Protein 6.9 6.0 - 8.0 g/dL LAB CHEMISTRY METHOD 06/28/2024 5:05 PM EST [facility] Albumin 3.7 3.2 - 5.0 g/dL LAB CHEMISTRY METHOD 06/28/2024 5:05 PM [facility] Total Bilirubin 0.6 0.0 - 1.4 mg/dL LAB CHEMISTRY METHOD 06/28/2024 5:05 PM [facility] Blood Venous blood specimen / Unknown Venipuncture / Unknown 06/28/2024 1:29 PM EST 06/28/2024 1:29 PM EST Suman CARDONA LAB BLOOD ORDERABLES Lilian l Result [facility] [address] [place] [address], * Depression Screening (02/26/2024) [facility] Depression Screening Abstracted [facility] Provider HEALTH MAINTENANCE Final Result * Diabetes Foot Exam (09/07/2023) [facility] Diabetes: Annual Foot Exam Abstracted [facility] Provider HEALTH MAINTENANCE Final Result * Urine Albumin Creatinine Ratio (12/17/2021) [facility] Urine Albumin Creatinine Ratio Abstracted [facility] Provider HEALTH MAINTENANCE Final Result * Colonoscopy (11/07/2018) [facility] Colonoscopy No Interpretation , Abstracted Anatomical Region Laterality Modality Other [facility] Provider HEALTH MAINTENANCE Final Result * Hepatitis C Screening (05/27/2014) [facility] Hepatitis C Screening Abstracted us Historical Provider MD HEALTH MAINTENANCE Final Result from Last 3 Months or Most Recently Relevant to Health Maintenance Insurance [place] Member Subscriber Plan / Payer (Ef fective 2024-Present) Name:Dragan Figueroa Relation to Subscriber:Self Name:Dragan Figueroa Payer ID:[id number] Group ID:Not on file Type:Not on file Address: [facility] ATTN:CLAIMS [address] [place] [address] [place] [address] [address] [place] [address] Advance Directives Documents on File Type Date Recorded Patient Target Trimmer Expl anation Advance Directives and Living Will 09/17/2024 7:51 AM MOLST Health Care Decision (hx) 09/18/2019 AD ACEVEDO DIRECTIVE Health Care Decision (hx) 09/18/2019 AD ACEVEDO DIRECTIVE Health Care Decision (hx) 09/18/2019 AD ACVEEDO DIRECTIVE Health Care Decision (hx) 09/18/2019 AD ACEVEDO DIRECTIVE Health Care Decision (hx) 09/18/2019 AD ACEVEDO DIRECTIVE Health Care Decision (hx) 09/18/2019 AD ACEVEDO DIRECTIVE Health Care Decision (hx) 09/18/2019 AD ACEVEDO DIRECTIVE Health Care Decision (hx) 09/18/2019 AD ACEVEDO DIRECTIVE Health Care Decision (hx) 09/18/2019 AD ACEVEDO DIRECTIVE Health Care Decision (hx) 09/18/2019 AD ACEVEDO DIRECTIVE Health Care Decision (hx) 09/18/2019 AD ACEVEDO DIRECTIVE Health Care Decision (hx) 09/18/2019 AD ACEVEDO DIRECTIVE Health Care Decision (hx) 09/18/2019 AD ACEVEDO DIRECTIVE Health Care Decision (hx) 09/18/2019 AD ACEVEDO DIRECTIVE Health Care Decision (hx) 09/18/2019 AD ACEVEDO DIRECTIVE Health Care Decision (hx) 09/18/2019 AD ACEVEDO DIRECTIVE Care Teams Hydrogen Power Plant Manager Relationship Specialty Start Date End Date Suman Lu PA [address] [place] [address] PCP - General Internal Medicine 06/04/24
--- OUTSIDE RECORDS SUMMARY | 2024-12-04 13:57 | XMS_ITS | Encounter Summary ---
Author Organization [facility] Address [address] [place] [address] Care Team Providers Care Vegetable Tier Name Role Phone Yoel Cervantes MD Primary Care Provider [phone] Suman Lu PA-C Primary Care Provider [phone] Chari Dee MD Unavailable [phone] Reason for Visit * Reason Onset Date Comments Faxed Order 04/22/2020 [facility] and hold long term services orders Encounter Details Date Type Department Care Team Description 04/22/2020 Telephone Adult Medicine [address] [phone] Yoel Cervantes MD [address] [place] [address] [phone] Faxed Order ([facility]unification and hold long term services orders) Social History Tobacco Use Types Packs/Day Years [...] encounter Miscellaneous Notes * Telephone Encounter - Madeleine German - 05/05/2020 10:34 AM EDT Faxed order to be signed and faxed back * Telephone Encounter - Madeleine German - 05/04/2020 2:38 PM EDT Multiple orders to be signed and faxed back * Telephone Encounter - Osmin Cardenas - 04/22/2020 3:26 PM EDT Received a faxed order from [employer]. Placed in Dr. Yoel Cervantes's box. Please complete, sign, date, and fax back to [phone]. documented in this encounter Plan of Treatment Not on file documented as of this encounter Visit Diagnoses Not on filedocumented in this encounter Care Teams Vegetable Tier Relationship Specialty Start Date End Date Yoel Cervantes MD [address] [place] [address] PCP - General Internal Medicine 06/24/15 12/21/20 Suman Lu PA-C [address] [place] [address] PCP - General Internal Medicine 12/22/20 Chari Dee MD [address] [place] [address] Specialist Cardiology 07/25/23 documented as of this encounter
--- OUTSIDE RECORDS SUMMARY | 2024-12-04 13:58 | XMS_ITS | Encounter Summary ---
Author Organization [facility] Address [address] [place] [address] Care Team Providers Care Structured Cabling Technician Name Role Phone Yoel Cervantes MD Primary Care Provider [phone] Suman Lu PA-C Primary Care Provider [phone] Chari Dee MD Unavailable [phone] Reason for Visit * Reason Onset Date Comments Faxed Order 11/12/2020 Order #[id number], [id number] Encounter Details Date Type Department Care Team Description 11/12/2020 Telephone Adult Medicine [address] [phone] Yoel Cervantes MD [address] [place] [address] [phone] Faxed Order (Order #[id number]) Social History Tobacco Use Types Packs/Day Years [...] encounter Miscellaneous Notes * Telephone Encounter - Lou Werner - 11/12/2020 2:32 PM EDT Another faxed order came in from [employer], placed in pcp bin for review. Order #[id number] * Telephone Encounter - Lou Werner - 11/12/2020 1:55 PM EDT Faxed orders received from [employer], placed in providers bin for review. Please sign and fax orders to [phone]. documented in this encounter Plan of Treatment Not on file documented as of this encounter Visit Diagnoses Not on filedocumented in this encounter Care Teams Structured Cabling Technician Relationship Specialty Start Date End Date Yoel Cervantes MD [address] [place] [address] PCP - General Internal Medicine 06/24/15 12/21/20 Suman Lu PA-C [address] [place] [address] PCP - General Internal Medicine 12/22/20 Chari Dee MD [address] [place] [address] Specialist Cardiology 07/25/23 documented as of this encounter
--- OUTSIDE RECORDS SUMMARY | 2024-12-04 13:58 | XMS_ITS | Encounter Summary ---
Author Organization [facility] Address [address] [place] [address] Care Team Providers Care System Safety Engineer Name Role Phone Yoel Cervantes MD Primary Care Provider [phone] Suman Lu PA-C Primary Care Provider [phone] Chari Dee MD Unavailable [phone] Reason for Visit * Reason Onset Date Comments Provider Call Back 01/11/2016 Encounter Details Date Type Department Care Team Description 01/11/2016 Telephone Urology [address] [place] [address] Keegan Thompson MD Provider Call Back Social History Tobacco Use Types Packs/Day Years [...] encounter Miscellaneous Notes * Telephone Encounter - Bing Zayas - 01/11/2016 3:34 PM EDT Please call pathology. They need diagnosis for patient. documented in this encounter Plan of Treatment Not on file documented as of this encounter Visit Diagnoses Not on filedocumented in this encounter Care Teams System Safety Engineer Relationship Specialty Start Date End Date Yoel Cervantes MD [address] [place] [address] PCP - General Internal Medicine 06/24/15 12/21/20 Suman Lu PA-C [address] [place] [address] [phone] PCP - General Internal Medicine 12/22/20 Chari Dee MD [address] [place] [address] [phone] Specialist Cardiology 07/25/23 documented as of this encounter
--- OUTSIDE RECORDS SUMMARY | 2024-12-04 13:58 | XMS_ITS | Encounter Summary ---
Author Organization [facility] Address [address] [place] [address] Care Team Providers Care Stone Setter Apprentice Name Role Phone Yoel Cervantes MD Primary Care Provider [phone] Suman Lu PA-C Primary Care Provider [phone] Chari Dee MD Unavailable [phone] Reason for Visit * Reason Onset Date Comments Post Op Visit 10/25/2016 Encounter Details Date Type Department Care Team Description 10/25/2016 Telephone Gastroenterology - [address] [phone] Jeremy Florentino MD Post Op Visit Social History Tobacco Use Types Packs/Day Years [...] encounter Miscellaneous Notes * Telephone Encounter - Carmelina Lopez - 10/26/2016 10:00 AM EDT LMOM to schedule follow up with * Telephone Encounter - Zaynab Chen - 10/25/2016 4:[address] Sheikh on procedure note recommends follow up with GI provider, do you wish to have this scheduled? documented in this encounter Plan of Treatment Not on file documented as of this encounter Visit Diagnoses Diagnosis Gastroesophageal reflux disease with esophagitis- Primary documented in this encounter Care Teams Stone Setter Apprentice Relationship Specialty Start Date End Date Yoel Cervantes MD [address] [place] [address] PCP - General Internal Medicine 06/24/15 12/21/20 Suman Lu PA-C [address] [place] [address] PCP - General Internal Medicine 12/22/20 Chari Dee MD [address] [place] [address] Specialist Cardiology 07/25/23 documented as of this encounter
--- OUTSIDE RECORDS SUMMARY | 2024-12-04 13:58 | XMS_ITS | Encounter Summary ---
Author Organization [facility] Address [address] [place] [address] Care Team Providers Care Registered Phlebotomist Part Time Name Role Phone Yoel Cervantes MD Primary Care Provider [phone] Suman Lu PA-C Primary Care Provider [phone] Chari Dee MD Unavailable [phone] Encounter Details Date Type Department Care Team Description 08/03/2016 Manager Equity Report Medical Records [address] [place], [place] [phone] Aguila Silveira Np Social History Tobacco Use [...] on filedocumented in this encounter Care Teams Registered Phlebotomist Part Time Relationship Specialty Start Date End Date Yoel Cervantes MD [address] [place] [address] [phone] PCP - General Internal Medicine 06/24/15 12/21/20 Suman Lu PA-C [address] [place] [address] [phone] PCP - General Internal Medicine 12/22/20 Chari Dee MD [address] [place] [address] Specialist Cardiology 07/25/23 documented as of this encounter
--- OUTSIDE RECORDS SUMMARY | 2024-12-04 13:58 | XMS_ITS | Encounter Summary ---
Author Organization [facility] Address [address] [place] [address] Care Team Providers Care Counter Top Assembler Name Role Phone Suman Lu PA-C Primary Care Provider [phone] Chari Dee MD Unavailable [phone] Encounter Details Date Type Department Care Team Description 04/29/2021 Hospital Medical Records [address] [place] [address] Guillaume Sheehan MD [address] [phone] Social History Tobacco Use Types Packs/Day Years [...] have Coronavirus / COVID-19? No / Unsure 04/22/2021 2:28 PM EDT documented as of this encounter Plan of Treatment Not on file documented as of this encounter Visit Diagnoses Not on filedocumented in this encounter Care Teams Counter Top Assembler Relationship Specialty Start Date End Date Suman Lu PA-C [address] [place], [place] [phone] PCP - General Internal Medicine 12/22/20 Chari Dee MD [address] [place] [address] Specialist Cardiology 07/25/23 documented as of this encounter
--- OUTSIDE RECORDS SUMMARY | 2024-12-04 13:58 | XMS_ITS | Encounter Summary ---
Author Organization [facility] Address [address] [place] [address] Care Team Providers Care Technician Terminal And Repeater Name Role Phone Suman Lu PA-C Primary Care Provider [phone] Chari Dee MD Unavailable [phone] Encounter Details Date Type Department Care Team Description 06/29/2021 Hospital Medical Records [address] [place] [address] [facility] Social History Tobacco Use Types Packs/Day [...] have Coronavirus / COVID-19? No / Unsure 07/02/2021 10:31 AM EST documented as of this encounter Plan of Treatment Not on file documented as of this encounter Visit Diagnoses Not on filedocumented in this encounter Care Teams Technician Terminal And Repeater Relationship Specialty Start Date End Date Suman Lu PA-C [address] [place] [address] PCP - General Internal Medicine 12/22/20 Chari Dee MD [address] [facility] [place] [address] Specialist Cardiology 07/25/23 documented as of this encounter
--- OUTSIDE RECORDS SUMMARY | 2024-12-04 13:58 | XMS_ITS | Encounter Summary ---
Author Organization [facility] Address [address] [place] [address] Care Team Providers Care Sales Project Coordinator Name Role Phone Yoel Cervantes MD Primary Care Provider [phone] Suman Lu PA-C Primary Care Provider [phone] Chari Dee MD Unavailable [phone] Reason for Visit * Reason Onset Date Comments VNA Call 06/08/2016 Encounter Details Date Type Department Care Team Description 06/08/2016 Telephone Adult Medicine [address] [phone] Yoel Cervantes MD [address] [place] [address] [phone] VNA Call Social History Tobacco Use Types [...] encounter Miscellaneous Notes * Telephone Encounter - Inessa Rhodes R.N. - 06/08/2016 3:04 PM EST FYI to Dr. Cervantes. * Telephone Encounter - Aimee Nance - 06/08/2016 2:59 PM EST [facility]NA CALL Which [facility] office is calling? [facility] Full name of caller: Kyle The caller is A Physical Therapist Is the caller at the patients home?: NO Reason for call: patient was suppose to be seen today for admission, patient postponed until Monday. Does caller need an urgent call back? NO Was CONTACT Telephone # obtained above?: YES Fax #: documented in this encounter Plan of Treatment Not on file documented as of this encounter Visit Diagnoses Not on filedocumented in this encounter Care Teams Sales Project Coordinator Relationship Specialty Start Date End Date Yoel Cervantes MD [address] [place] [address] PCP - General Internal Medicine 06/24/15 12/21/20 Suman Lu PA-C [address] [place] [address] PCP - General Internal Medicine 12/22/20 Chari Dee MD [address] [place] [address] Specialist Cardiology 07/25/23 documented as of this encounter
--- OUTSIDE RECORDS SUMMARY | 2024-12-04 13:58 | XMS_ITS | Encounter Summary ---
Author Organization [facility] Address [address] [place] [address] Care Team Providers Care Family Law Attorney Name Role Phone Suman Lu PA-C Primary Care Provider [phone] Chari Dee MD Unavailable [phone] Reason for Visit * Reason Comments E-prescribe Rx Request Encounter Details Date Type Department Care Team Description 05/09/2021 Refill [facility] [address] [address] Darryl Sigala MD [address] [address] E-prescribe Rx Request Social History Tobacco Use [...] have Coronavirus / COVID-19? No / Unsure 05/07/2021 3:00 PM EDT documented as of this encounter Plan of Treatment Not on file documented as of this encounter Visit Diagnoses Diagnosis Bilateral primary osteoarthritis of knee documented in this encounter Care Teams Family Law Attorney Relationship Specialty Start Date End Date Suman Lu PA-C [address] [place] [address] PCP - General Internal Medicine 12/22/20 Chari Dee MD [address] [place] [address] Specialist Cardiology 07/25/23 documented as of this encounter
--- OUTSIDE RECORDS SUMMARY | 2024-12-04 13:58 | XMS_ITS | Encounter Summary ---
Author Organization [facility] Address [address] [place] [address] Care Team Providers Care Small Offset Printer Name Role Phone Suman Lu PA-C Primary Care Provider [phone] Chari Dee MD Unavailable [phone] Encounter Details Date Type Department Care Team Description 04/27/2021 Hospital Medical Records [address] [place] [address] Lam Alejandro MD Social History Tobacco Use Types Packs/Day [...] on filedocumented in this encounter Care Teams Small Offset Printer Relationship Specialty Start Date End Date Suman Lu PA-C [address] [place] [address] PCP - General Internal Medicine 12/22/20 Chari Dee MD [address] [place] [address] Specialist Cardiology 07/25/23 documented as of this encounter
--- OUTSIDE RECORDS SUMMARY | 2024-12-04 13:58 | XMS_ITS | Encounter Summary ---
Author Organization [facility] Address [address] [place] [address] Care Team Providers Care Shafting Cleaner Name Role Phone Suman Lu PA-C Primary Care Provider [phone] Chari Dee MD Unavailable [phone] Encounter Details Date Type Department Care Team Description 01/01/2021 Business Doc Medical Records [address] [place] [address] Abstract, Provider Social History Tobacco Use Types [...] have Coronavirus / COVID-19? No / Unsure 12/23/2020 2:59 PM EDT documented as of this encounter Plan of Treatment Not on file documented as of this encounter Visit Diagnoses Not on filedocumented in this encounter Care Teams Shafting Cleaner Relationship Specialty Start Date End Date Suman Lu PA-C [address] [place] [address] PCP - General Internal Medicine 12/22/20 Chari Dee MD [address] [place] [address] Specialist Cardiology 07/25/23 documented as of this encounter
--- OUTSIDE RECORDS SUMMARY | 2024-12-04 13:58 | XMS_ITS | Encounter Summary ---
Author Organization [facility] Address [address] [place] [address] Care Team Providers Care Technical Operations Vice President Name Role Phone Suman Lu PA-C Primary Care Provider [phone] Chari Dee MD Unavailable [phone] Reason for Visit * Reason Comments E-prescribe Rx Request Encounter Details Date Type Department Care Team Description 07/07/2021 Refill Adult Medicine [address] [phone] Valeria Bourne PA-C [address] [place] [address] [phone] E-prescribe Rx Request Social History Tobacco Use [...] have Coronavirus / COVID-19? No / Unsure 07/07/2021 10:58 AM EST documented as of this encounter Miscellaneous Notes * Telephone Encounter - Ira Figueroa M.A. - 07/07/2021 8:29 AM EST Lab Results Component Value Date NA 139 06/01/2021 K 3.9 06/01/2021 CO2 28 06/01/2021 CL 104 06/01/2021 BUN 14 06/01/2021 CREAT 0.88 06/01/2021 GLU 276 06/01/2021 CA 8.4 06/01/2021 GFR > 60 06/01/2021 SHERIN 06/01/21 NOV 07/21/21 * Telephone Encounter - Jonathan Reinoso - 07/07/2021 8:22 AM EST Patient would like script to be: E-PRESCRIBED/FAXED TO PHARMACY WHEN WAS THE PATIENT'S LAST APPOINTMENT IN ADULT MEDICINE? 06/01/2021 WHEN WAS THE LAST TIME THE PATIENT SAW THEIR PCP? 04/01/2021 Does patient have an upcoming appointment? Yes 07/21/2021 (THE MEDICATION REQUESTED IS ON THE MED [...] N/A Patients current insurance carrier is: Payor: [facility] MEDIC[facility] FFS / Plan: [facility] MDCR-ADV PPO $0 [place] [id number] / Product Type: PPO [id number] documented in this encounter Plan of Treatment Not on file documented as of this encounter Visit Diagnoses Not on filedocumented in this encounter Care Teams Technical Operations Vice President Relationship Specialty Start Date End Date Suman Lu PA-C [address] [place] [address] PCP - General Internal Medicine 12/22/20 Chari Dee MD [address] [place] [address] Specialist Cardiology 07/25/23 documented as of this encounter
--- OUTSIDE RECORDS SUMMARY | 2024-12-04 13:58 | XMS_ITS | Encounter Summary ---
Author Organization [facility] Address [address] [place] [address] Care Team Providers Care Valve Tester Name Role Phone Suman Lu PA-C Primary Care Provider [phone] Chari Dee MD Unavailable [phone] Encounter Details Date Type Department Care Team Description 05/19/2021 Telephone Pulmonology - [place] [address] [facility] [address] [place] [address] Kat Romano MD [address] [place] [phone] Social History Tobacco Use Types Packs/Day Years [...] on filedocumented in this encounter Care Teams Valve Tester Relationship Specialty Start Date End Date Suman Lu PA-C [address] [place] [address] PCP - General Internal Medicine 12/22/20 Chari Dee MD [address] [place] [address] Specialist Cardiology 07/25/23 documented as of this encounter
--- OUTSIDE RECORDS SUMMARY | 2024-12-04 13:58 | XMS_ITS | Encounter Summary ---
Author Organization [facility] Address [address] [place] [address] Care Team Providers Care Ward Service Supervisor Name Role Phone Suman Lu PA-C Primary Care Provider [phone] Chari Dee MD Unavailable [phone] Reason for Visit * Reason Comments E-prescribe Rx Request Encounter Details Date Type Department Care Team Description 06/08/2021 Refill Adult Medicine [address] [phone] Valeria Bourne PA-C [address] [place] [address] [phone] E-prescribe Rx Request Social History Tobacco Use [...] have Coronavirus / COVID-19? No / Unsure 06/01/2021 10:39 AM EST documented as of this encounter Miscellaneous Notes * Telephone Encounter - Luna Flores M.A. - 06/08/2021 10:03 AM EST Lab Results Component Value Date HGBA1C 9.7 06/01/2021 MALBUR 59.9 06/03/2020 MALBCR 20.8 06/03/2020 CHOL 150 06/01/2021 LDL 76 06/01/2021 HDL 36 06/01/2021 TRIG 193 06/01/2021 GLU 276 06/01/2021 CREAT 0.88 06/01/2021 Pending first visit with new pcp 07/2021 * Telephone Encounter - Jonathan Reinoso - 06/08/2021 7:15 AM EST Patient would like script to [...] N/A Patients current insurance carrier is: Payor: [facility] MEDICARE FFS / Plan: [facility] MDCR-ADV PPO $0 [place] [id number] / Product Type: PPO [id number] documented in this encounter Plan of Treatment Not on file documented as of this encounter Visit Diagnoses Not on filedocumented in this encounter Care Teams Ward Service Supervisor Relationship Specialty Start Date End Date Suman Lu PA-C [address] [place] [address] PCP - General Internal Medicine 12/22/20 Chari Dee MD [address] [place] [address] Specialist Cardiology 07/25/23 documented as of this encounter
--- OUTSIDE RECORDS SUMMARY | 2024-12-04 13:58 | XMS_ITS | Encounter Summary ---
Author Organization [facility] Address [address] [place] [address] Care Team Providers Care Cosmetician Apprentice Name Role Phone Suman Lu PA-C Primary Care Provider [phone] Chari Dee MD Unavailable [phone] Encounter Details Date Type Department Care Team Description 04/27/2021 Hospital Medical Records [address] [place] [address] [facility] Social History Tobacco Use Types Packs/Day [...] Date/Time Associated Diagnosis Comments OUTSIDE EKG Routine 04/27/[address] Routine 04/27/2021 OUTSIDE PLAIN FILM Routine 04/27/2021 documented in this encounter Results * OUTSIDE CT (04/27/2021) Provider Default RADIOLOGY * OUTSIDE PLAIN FILM (04/27/2021) Provider Default RADIOLOGY * OUTSIDE EKG (04/27/2021) Provider Default CARDIOLOGY documented in this encounter Visit Diagnoses Not on filedocumented in this encounter Care Teams Cosmetician Apprentice Relationship Specialty Start Date End Date Suman Lu PA-C [address] [place] [address] PCP - General Internal Medicine 12/22/20 Chari Dee MD [address] [place] [address] Specialist Cardiology 07/25/23 documented as of this encounter
--- OUTSIDE RECORDS SUMMARY | 2024-12-04 13:58 | XMS_ITS | Encounter Summary ---
Author Organization [facility] Address [address] [place] [address] Care Team Providers Care Distance Learning Technician Name Role Phone Yoel Cervantes MD Primary Care Provider [phone] Suman Lu PA-C Primary Care Provider [phone] Chari Dee MD Unavailable [phone] Reason for Visit * Reason Onset Date Comments VNA Call 07/12/2016 Encounter Details Date Type Department Care Team Description 07/12/2016 Telephone Adult Medicine [address] [phone] Yoel Cervantes MD [address] [place] [address] [phone] VNA Call Social History Tobacco Use Types [...] Telephone Encounter - Inessa Rhodes R.N. - 07/12/2016 1:40 PM EST FYI to Dr. Cervantes. * Telephone Encounter - Alexsandra Ulloa - 07/12/2016 1:21 PM EST VNA CALL Which VNA office is calling? [facility] Full name of caller: jim The caller is A nurse Is the caller at the patients home?: NO Reason for call: added nursing services yesterday , patient has not been taking baclfen , only as needed Does caller need an urgent call back? NO Was CONTACT Telephone # obtained above?: YES Fax #: documented in this encounter Plan of Treatment Not on file documented as of this encounter Visit Diagnoses Not on filedocumented in this encounter Care Teams Distance Learning Technician Relationship Specialty Start Date End Date Yoel Cervantes MD [address] [place] [address] PCP - General Internal Medicine 06/24/15 12/21/20 Suman Lu PA-C [address] [place] [address] [phone] PCP - General Internal Medicine 12/22/20 Chari Dee MD [address] [place] [address] Specialist Cardiology 07/25/23 documented as of this encounter
--- OUTSIDE RECORDS SUMMARY | 2024-12-04 13:58 | XMS_ITS | Encounter Summary ---
Author Organization [facility] Address [address] [place] [address] Care Team Providers Care Tire Builder Name Role Phone Yoel Cervantes MD Primary Care Provider [phone] Suman Lu PA-C Primary Care Provider [phone] Chari Dee MD Unavailable [phone] Reason for Visit * Reason Comments E-prescribe Rx Request Encounter Details Date Type Department Care Team Description 10/31/2016 Refill Adult Medicine [address] [phone] Suman Lu PA-C [address] [place] [address] [phone] E-prescribe Rx Request Social History Tobacco Use [...] encounter Miscellaneous Notes * Telephone Encounter - Alvina Mcnair - 10/31/2016 11:08 AM EDT Patient would like script to be: E-PRESCRIBED/FAXED TO PHARMACY WHEN WAS THE PATIENT'S LAST APPOINTMENT IN ADULT MEDICINE? 08/02/16 WHEN WAS THE LAST TIME THE PATIENT SAW THEIR PCP? 04/09/16 Does patient have an upcoming appointment? No-no answer, no voicemail documented x2 (Please verify telephone contact #'s at next phone call) (THE MEDICATION REQUESTED IS ON THE MED LIST ABOVE) All of the medications requested were on the CURRENT MEDS list Did you check the Pharmacy information above?: YES Patient wants: 30 -day supply Is this a mail order prescription request ? NO Patients current insurance carrier is: Payor: [facility] MEDICAID / Plan: [facility] MEDICAID HMO $0 [place] / Product Type: HMO [id number] documented in this encounter Plan of Treatment Not on file documented as of this encounter Visit Diagnoses Not on filedocumented in this encounter Care Teams Tire Builder Relationship Specialty Start Date End Date Yoel Cervantes MD [address] [place] [address] PCP - General Internal Medicine 06/24/15 12/21/20 Suman Lu PA-C [address] [place] [address] [phone] PCP - General Internal Medicine 12/22/20 Chari Dee MD [address] [place] [address] [phone] Specialist Cardiology 07/25/23 documented as of this encounter
--- OUTSIDE RECORDS SUMMARY | 2024-12-04 13:58 | XMS_ITS | Encounter Summary ---
Author Organization [facility] Address [address] [place] [address] Care Team Providers Care Change Management Manager Name Role Phone Suman Lu PA-C Primary Care Provider [phone] Chari Dee MD Unavailable [phone] Encounter Details Date Type Department Care Team Description 04/05/2021 Business Doc Medical Records [address] [place] [address] Abstract, Provider Social History Tobacco Use Types [...] have Coronavirus / COVID-19? No / Unsure 04/01/2021 9:49 AM EDT documented as of this encounter Plan of Treatment Not on file documented as of this encounter Visit Diagnoses Not on filedocumented in this encounter Care Teams Change Management Manager Relationship Specialty Start Date End Date Suman Lu PA-C [address] [place] [address] PCP - General Internal Medicine 12/22/20 Chari Dee MD [address] [place] [address] Specialist Cardiology 07/25/23 documented as of this encounter
--- OUTSIDE RECORDS SUMMARY | 2024-12-04 13:58 | XMS_ITS | Encounter Summary ---
Author Organization [facility] Address [address] [place] [address] Care Team Providers Care Senior Corporate Accountant Name Role Phone Yoel Cervantes MD Primary Care Provider [phone] Suman Lu PA-C Primary Care Provider [phone] Chari Dee MD Unavailable [phone] Reason for Visit * Reason Onset Date Comments Faxed Order 09/06/2016 Encounter Details Date Type Department Care Team Description 09/06/2016 Telephone Adult [address] [phone] Yoel Cervantes MD [address] [place] [address] [phone] Faxed Order Social History Tobacco Use Types Packs/Day Years [...] Miscellaneous Notes * Telephone Encounter - Diane Boland - 09/06/2016 1:18 PM EST Faxed order requires PCP signature. Order placed in mail bin. documented in this encounter Plan of Treatment Not on file documented as of this encounter Visit Diagnoses Not on filedocumented in this encounter Care Teams Senior Corporate Accountant Relationship Specialty Start Date End Date Yoel Cervantes MD [address] [place] [address] PCP - General Internal Medicine 06/24/15 12/21/20 Suman Lu PA-C [address] [place] [address] [phone] PCP - General Internal Medicine 12/22/20 Chari Dee MD [address] [place] [address] [phone] Specialist Cardiology 07/25/23 documented as of this encounter
--- OUTSIDE RECORDS SUMMARY | 2024-12-04 13:58 | XMS_ITS | Encounter Summary ---
Author Organization [facility] Address [address] [place] [address] Care Team Providers Care Ceramics Instructor Name Role Phone Yoel Cervantes MD Primary Care Provider [phone] Suman Lu PA-C Primary Care Provider [phone] Chari Dee MD Unavailable [phone] Encounter Details Date Type Department Care Team Description 06/28/2016 Hospital Medical Records [address] [place] [address] Social History Tobacco Use Types Packs/Day Years [...] on filedocumented in this encounter Care Teams Ceramics Instructor Relationship Specialty Start Date End Date Yoel Cervantes MD [address] [place] [address] [phone] PCP - General Internal Medicine 06/24/15 12/21/20 Suman Lu PA-C [address] [place] [address] [phone] PCP - General Internal Medicine 12/22/20 Cahri Dee MD [address] [place] [address] Specialist Cardiology 07/25/23 documented as of this encounter
--- OUTSIDE RECORDS SUMMARY | 2024-12-04 13:58 | XMS_ITS | Encounter Summary ---
Author Organization [facility] Address [address] [place] [address] Care Team Providers Care Service Team Leader Name Role Phone Suman Lu PA-C Primary Care Provider [phone] Chari Dee MD Unavailable Encounter Details Date Type Department Care Team Description 03/10/2021 Hospital Medical Records [address] [place] [address] Social History Tobacco Use Types Packs/Day Years [...] have Coronavirus / COVID-19? No / Unsure 02/15/2021 1:52 PM EDT documented as of this encounter Plan of Treatment Not on file documented as of this encounter Procedures Procedure Name Priority Date/Time Associated Diagnosis Comments OUTSIDE EKG Routine 03/10/2021 OUTSIDE PLAIN FILM Routine 03/10/2021 OUTSIDE LAB Routine 03/10/2021 documented in this encounter Results * OUTSIDE PLAIN FILM (03/10/2021) Provider Default RADIOLOGY * OUTSIDE LAB (03/10/2021) Provider Default LAB * OUTSIDE EKG (03/10/2021) Provider Default CARDIOLOGY documented in this encounter Visit Diagnoses Not on filedocumented in this encounter Care Teams Service Team Leader Relationship Specialty Start Date End Date Suman Lu PA-C [address] [place] [address] PCP - General Internal Medicine 12/22/20 Chari Dee MD [address] [place] [address] Specialist Cardiology 07/25/23 documented as of this encounter
--- OUTSIDE RECORDS SUMMARY | 2024-12-04 13:58 | XMS_ITS | Encounter Summary ---
Author Organization [facility] Address [address] [place] [address] Care Team Providers Care Slitter Processed Film Name Role Phone Suman Lu PA-C Primary Care Provider [phone] Chari Dee MD Unavailable [phone] Reason for Visit * Reason Onset Date Comments hospital follow up 07/02/2021 Encounter Details Date Type Department Care Team Description 07/02/2021 Telephone Adult Medicine [address] [address] Suman Lu PA-C [address] [place] [address] [phone] hospital follow up Social History Tobacco Use Types Packs/Day Years [...] * Telephone Encounter - Diane Putnam - 07/05/2021 10:54 AM EST Left vm for patient to return my call * Telephone Encounter - Edith Perez - 07/02/2021 2:13 PM EST Hospital follow up appointment needed Hospital patient was treated at: [facility] Was this only an ER visit or was the patient admitted to the hospital? Admitted to hospital Date of visit if ER visit only: N/A If patient was admitted what was the date of discharge? 06/30/21 Reason/diagnosis for visit or stay: Infection in his foot When was the patient told to follow up? Within 7-10 days Was visit or stay related to an injury? NO If yes, what was the date of injury (DOI)? N/A If yes, was the injury due to N/A documented in this encounter Plan of Treatment Not on file documented as of this encounter Visit Diagnoses Not on filedocumented in this encounter Care Teams Slitter Processed Film Relationship Specialty Start Date End Date Suman Lu PA-C [address] [place] [address] PCP - General Internal Medicine 12/22/20 Chari Dee MD [address] [place] [address] Specialist Cardiology 07/25/23 documented as of this encounter
--- OUTSIDE RECORDS SUMMARY | 2024-12-04 13:58 | XMS_ITS | Encounter Summary ---
Author Organization [facility] Address [address] [place] [address] Care Team Providers Care Linter Drier Operator Name Role Phone Suman Lu PA-C Primary Care Provider [phone] Chari Dee MD Unavailable [phone] Encounter Details Date Type Department Care Team Description 06/30/2021 SCAN Medical Records [address] [place] [address] Dean Kim MD Social History Tobacco Use Types Packs/Day [...] Name Priority Date/Time Associated Diagnosis Comments OUTSIDE LAB Routine 06/30/2021 OUTSIDE LAB Routine 06/30/2021 documented in this encounter Results * OUTSIDE LAB (06/30/2021) Provider Abstract LAB * OUTSIDE LAB (06/30/2021) Provider Abstract LAB documented in this encounter Visit Diagnoses Not on filedocumented in this encounter Care Teams Linter Drier Operator Relationship Specialty Start Date End Date Suman Lu PA-C [address] [place] [address] PCP - General Internal Medicine 12/22/20 Chari Dee MD [address] [place], [place] [phone] Specialist Cardiology 07/25/23 documented as of this encounter
--- OUTSIDE RECORDS SUMMARY | 2024-12-04 13:58 | XMS_ITS | Encounter Summary ---
Author Organization [facility] Address [address] [place] [address] Care Team Providers Care Cardiac/Vascular Sonographer Name Role Phone Suman Lu PA-C Primary Care Provider [phone] Chari Dee MD Unavailable [phone] Encounter Details Date Type Department Care Team Description 05/04/2021 Hospital Medical Records [address] [place] [address] Guillaume Sheehan MD [address] [address] Social History Tobacco Use Types [...] on filedocumented in this encounter Care Teams Cardiac/Vascular Sonographer Relationship Specialty Start Date End Date Suman Lu PA-C [address] [place], [place] [phone] PCP - General Internal Medicine 12/22/20 Chari Dee MD [address] [place] [address] Specialist Cardiology 07/25/23 documented as of this encounter
--- OUTSIDE RECORDS SUMMARY | 2024-12-04 13:58 | XMS_ITS | Encounter Summary ---
Author Organization [facility] Address [address] [place] [address] Care Team Providers Care Table Games Manager Name Role Phone Suman Lu PA-C Primary Care Provider [phone] Chari Dee MD Unavailable [phone] Reason for Visit * Reason Onset Date Comments refill request 02/10/2021 Encounter Details Date Type Department Care Team Description 02/10/2021 Refill Adult Medicine [address] [phone] Suman Lu PA-C [address] [place] [address] [phone] refill request Social History Tobacco Use Types [...] have Coronavirus / COVID-19? No / Unsure 02/05/2021 9:43 AM EDT documented as of this encounter Miscellaneous Notes * Telephone Encounter - Luna Flores M.A. - 02/10/2021 12:07 PM EDT Lab Results Component Value Date NA 139 10/22/2020 K 4.6 10/22/2020 CO2 29 10/22/2020 CL 102 10/22/2020 BUN 23 10/22/2020 CREAT 0.68 10/22/2020 GLU 142 10/22/2020 CA 9.4 10/22/2020 GFR > 60 10/22/2020 Pending appt with Christian 04/01/21 * Telephone Encounter - Magdalena Butler - 02/10/2021 10:57 AM EDT Patient would like script to be: E-PRESCRIBED/FAXED TO PHARMACY WHEN WAS THE PATIENT'S LAST APPOINTMENT IN ADULT MEDICINE? 01/11/21 WHEN WAS THE LAST TIME THE PATIENT SAW THEIR PCP? 06/15/2021 Does patient have an upcoming appointment? Yes 03/22/21 (THE MEDICATION REQUESTED IS ON THE MED LIST ABOVE) All of the medications requested were on the CURRENT MEDS list Did you check the Pharmacy information above?: YES Patient wants: 90 -day supply Is this a mail order prescription request ? NO If the refill is from a FAXED refill request what is the RX # listed on the fax? Patients current insurance carrier is: Payor: [facility] MEDIC[facility] FFS / Plan: [facility] MDCR-ADV PPO $0 [id number] / Product Type: PPO [id number] documented in this encounter Plan of Treatment Not on file documented as of this encounter Visit Diagnoses Not on filedocumented in this encounter Care Teams Table Games Manager Relationship Specialty Start Date End Date Suman Lu PA-C [address] [place] [address] PCP - General Internal Medicine 12/22/20 Chari Dee MD [address] [place] [address] Specialist Cardiology 07/25/23 documented as of this encounter
--- OUTSIDE RECORDS SUMMARY | 2024-12-04 13:58 | XMS_ITS | Encounter Summary ---
Author Organization [facility] Address [address] [place] [address] Care Team Providers Care Nc Manager Name Role Phone Yoel Cervantes MD Primary Care Provider +[phone] Suman Lu PA-C Primary Care Provider [phone] Chari Dee MD Unavailable [phone] Reason for Visit * Reason Onset Date Comments Form 11/17/2015 Encounter Details Date Type Department Care Team Description 11/17/[address] [facility] [address] [place] [address] [phone] Yoel Cervantes MD [address] [place] [address] [phone] Form Social History Tobacco Use Types Packs/Day Years [...] encounter Miscellaneous Notes * Telephone Encounter - Lori Garrido - 11/17/2015 1:30 PM EDT Patient would like a copy of the form faxed to [facility], placed in patient pick and call him when the copy is ready documented in this encounter Plan of Treatment Not on file documented as of this encounter Visit Diagnoses Not on filedocumented in this encounter Care Teams Nc Manager Relationship Specialty Start Date End Date Yoel Cervantes MD [address] [place] [address] PCP - General Internal Medicine 06/24/15 12/21/20 Suman Lu PA-C [address] [place] [address] PCP - General Internal Medicine 12/22/20 Chari Dee MD [address] [place] [address] [phone] Specialist Cardiology 07/25/23 documented as of this encounter
--- OUTSIDE RECORDS SUMMARY | 2024-12-04 13:58 | XMS_ITS | Encounter Summary ---
Author Organization [facility] Address [address] [place] [address] Care Team Providers Care Information Assurance Engineer Name Role Phone Yoel Cervantes MD Primary Care Provider [phone] Suman Lu PA-C Primary Care Provider [phone] Chari Dee MD Unavailable [phone] Encounter Details Date Type Department Care Team Description 01/06/2016 Orders Only Radiology - [place] [address] [place], [place] [phone] Starla Villalobos PA-C Diabetes mellitus without complication (Primary Dx) Social History Tobacco Use Types [...] documented as of this encounter Results * CREATININE, BLOOD ASSAY (01/08/2016 3:01 PM EDT) [facility] Signature CREAT 0.8 0.7 - 1.5 mg/dL 01/08/2016 4:05 PM EDT [facility] GFR > 60 >60 01/08/2016 4:05 PM EDT [facility] Comment: If patient is -[place], multiply result by 1.21 Chronic Kidney Disease: < 60 ml/min/1.73 square meters Kidney Failure: < 15 ml/min/1.73 square meters 01/08/2016 3:01 PM EDT 01/08/2016 3:02 PM EDT Starla Villalobos PA-C LAB [facility] [address] [place] [address] documented in this encounter Visit Diagnoses Diagnosis Diabetes mellitus without complication (HCC)- Primary Type II or unspecified type diabetes mellitus without mention of complication, not stated as uncontrolled documented in this encounter Care Teams Information Assurance Engineer Relationship Specialty Start Date End Date Yoel Cervantes MD [address] [place] [address] PCP - General Internal Medicine 06/24/15 12/21/20 Suman Lu PA-C [address] [place] [address] PCP - General Internal Medicine 12/22/20 Chari Dee MD [address] [place] [address] [phone] Specialist Cardiology 07/25/23 documented as of this encounter
--- OUTSIDE RECORDS SUMMARY | 2024-12-04 13:58 | XMS_ITS | Encounter Summary ---
Author Organization [facility] Address [address] [place] [address] Care Team Providers Care A P Mechanic Name Role Phone Yoel Cervantes MD Primary Care Provider [phone] Suman Lu PA-C Primary Care Provider [phone] Chari Dee MD Unavailable [phone] Encounter Details Date Type Department Care Team Description 11/19/2020 Home Health Certification Medical Records [address] [place] [address] [facility] [address] [facility], [address] [place] [address] Social History Tobacco Use Types Packs/Day Years [...] on filedocumented in this encounter Care Teams A P Mechanic Relationship Specialty Start Date End Date Yoel Cervantes MD [address] [place] [address] PCP - General Internal Medicine 06/24/15 12/21/20 Suman Lu PA-C [address] [place] [address] [phone] PCP - General Internal Medicine 12/22/20 Chari Dee MD [address] [place] [address] [phone] Specialist Cardiology 07/25/23 documented as of this encounter
--- OUTSIDE RECORDS SUMMARY | 2024-12-04 13:58 | XMS_ITS | Encounter Summary ---
Author Organization [facility] Address [address] [place] [address] Care Team Providers Care Fabric Coating Supervisor Name Role Phone Suman Lu PA-C Primary Care Provider [phone] Chari Dee MD Unavailable [phone] Reason for Visit * Reason Onset Date Comments Faxed Order 06/04/2021 order # [id number] Encounter Details Date Type Department Care Team Description 06/04/2021 Telephone Adult Medicine [address] [address] Suman Lu PA-C [address] [place] [address] [phone] Faxed Order (order # [id number]) Social History Tobacco Use Types Packs/Day Years [...] encounter Miscellaneous Notes * Telephone Encounter - Michael Kelly - 06/04/2021 3:19 PM EST Faxed order received from [facility]. Order placed in Suman Lu's bin. Please review, sign, date, and fax back to [phone]. documented in this encounter Plan of Treatment Not on file documented as of this encounter Visit Diagnoses Not on filedocumented in this encounter Care Teams Fabric Coating Supervisor Relationship Specialty Start Date End Date Suman Lu PA-C [address] [place] [address] PCP - General Internal Medicine 12/22/20 Chari Dee MD [address] [place] [address] Specialist Cardiology 07/25/23 documented as of this encounter
--- OUTSIDE RECORDS SUMMARY | 2024-12-04 13:58 | XMS_ITS | Encounter Summary ---
Author Organization [facility] Address [address] [place] [address] Care Team Providers Care Hand Paint Mixer Name Role Phone Yoel Cervantes MD Primary Care Provider [phone] Suman Lu PA-C Primary Care Provider [phone] Chari Dee MD Unavailable [phone] Encounter Details Date Type Department Care Team Description 08/06/2015 Lumber Tailer Report Medical Records [address] [place] [address] Abstract, Provider Social History Tobacco Use Types [...] on filedocumented in this encounter Care Teams Hand Paint Mixer Relationship Specialty Start Date End Date Yoel Cervantes MD [address] [place] [address] [phone] PCP - General Internal Medicine 06/24/15 12/21/20 Suman Lu PA-C [address] [place] [address] [phone] PCP - General Internal Medicine 12/22/20 Chari Dee MD [address] [place] [address] Specialist Cardiology 07/25/23 documented as of this encounter
--- OUTSIDE RECORDS SUMMARY | 2024-12-04 13:58 | XMS_ITS | Encounter Summary ---
Author Organization [facility] Address [address] [place] [address] Care Team Providers Care Registered Radiologic Technologist Name Role Phone Yoel Cervantes MD Primary Care Provider [phone] Suman Lu PA-C Primary Care Provider [phone] Chari Dee MD Unavailable [phone] Encounter Details Date Type Department Care Team Description 06/29/2016 Hospital Medical Records [address] [place] [id number] Sánchez Cobos MD Social History Tobacco Use Types Packs/Day [...] filedocumented in this encounter Care Teams Registered Radiologic Technologist Relationship Specialty Start Date End Date Yoel Cervantes MD [address] [place] [address] [phone] PCP - General Internal Medicine 06/24/15 12/21/20 Suman Lu PA-C [address] [place] [address] [phone] PCP - General Internal Medicine 12/22/20 Chari Dee MD [address] [place] [address] Specialist Cardiology 07/25/23 documented as of this encounter
--- OUTSIDE RECORDS SUMMARY | 2024-12-04 13:58 | XMS_ITS | Encounter Summary ---
Author Organization [facility] Address [address] [place] [address] Care Team Providers Care Stenographic Court Reporter Name Role Phone Suman Lu PA-C Primary Care Provider [phone] Chari Dee MD Unavailable [phone] Encounter Details Date Type Department Care Team Description 05/13/2021 Telephone Cardio PVCA Diag Testing [address] [facility] [address] [place] [address] Fer Lay DPM [address] [facility] [address] [place], [place] [phone] Social History Tobacco Use Types Packs/Day Years [...] encounter Miscellaneous Notes * Telephone Encounter - Fer Lay DPM - 05/13/2021 1:30 PM EDT You can cancel it thanks * Telephone Encounter - Rajwinder Olvera - 05/13/2021 11:14 AM EDT JULES Chen had received and scheduled your request for Dragan to have a PVR, however Vascular Surgery also saw the patient and had ordered an Arterial w/TESS (a more thorough exam), patient does not need both. With your permission we would like to cancel the PVR and book the Arterial instead. Thank you documented in this encounter Plan of Treatment Not on file documented as of this encounter Visit Diagnoses Not on filedocumented in this encounter Care Teams Stenographic Court Reporter Relationship Specialty Start Date End Date Suman Lu PA-C [address] [place] [address] PCP - General Internal Medicine 12/22/20 Chari Dee MD [address] [place] [address] Specialist Cardiology 07/25/23 documented as of this encounter
--- OUTSIDE RECORDS SUMMARY | 2024-12-04 13:58 | XMS_ITS | Encounter Summary ---
Author Organization [facility] Address [address] [place] [address] Care Team Providers Care Animal Tech Name Role Phone Yoel Cervantes MD Primary Care Provider [phone] Suman Lu PA-C Primary Care Provider [phone] Chari Dee MD Unavailable [phone] Reason for Visit * Reason Onset Date Comments Faxed Order 07/26/2016 Encounter Details Date Type Department Care Team Description 07/26/2016 Telephone Adult Medicine [address] [phone] Yoel Cervantes MD [address] [place] [address] [phone] Faxed Order Social History Tobacco Use Types [...] Miscellaneous Notes * Telephone Encounter - Fer Boone - 07/26/2016 11:34 AM EST Please sign orders for [facility] VNA, placed in Dr. Cervantes's incoming documented in this encounter Plan of Treatment Not on file documented as of this encounter Visit Diagnoses Not on filedocumented in this encounter Care Teams Animal Tech Relationship Specialty Start Date End Date Yoel Cervantes MD [address] [place] [phone] PCP - General Internal Medicine 06/24/15 12/21/20 Suman Lu PA-C [address] [place] [address] [phone] PCP - General Internal Medicine 12/22/20 Chari Dee MD [address] [place] [address] [phone] Specialist Cardiology 07/25/23 documented as of this encounter
--- OUTSIDE RECORDS SUMMARY | 2024-12-04 13:58 | XMS_ITS | Encounter Summary ---
Author Organization [facility] Address [address] [place] [address] Care Team Providers Care Operations Expert Name Role Phone Yoel Cervantes MD Primary Care Provider [phone] Yoel Cervantes MD Primary Care Provider [phone] Suman Lu PA-C Primary Care Provider [phone] Chari Dee MD Unavailable [phone] Reason for Referral * Specialist (Urgent) - Authorized/Booked Specialty Diagnoses / Procedures Referred By Contzane t Referred To Contact PAIN MANAGEMENT / Pain Management Procedures REFERRAL TO PAIN MANAGEMENT Luke Cline MD [address] [place] [id number] [facility] [address] [place] [address] Referral ID Status Reason Start Date Expiration Date V isits Requested Visits Authorized SEE NOTE Authorized/B ooked 12/01/2014 03/18/2015 1 1 Reason for Visit * Reason Onset Date Comments Scale Mechanic Feedback 12/01/2014 Josh Vance pain mgmt Encounter Details Date Type Department Care Team Description 12/01/2014 Telephone Adult Medicine [facility] [address] [place] [id number] Luke Cline MD Scale Mechanic Feedback (Josh Vance pain mgmt) Social History Tobacco Use Types Packs/Day Years [...] encounter Miscellaneous Notes * Telephone Encounter - Jonna Eddy - 12/01/2014 2:14 PM EDT Please review this patients new referral request. The referral has been pended. Please complete thefollowing: If approved> sign order If denied>please give instructions and route to your practice nursing pool. Practice nurse should inform referrals and the patient if denied. * Telephone Encounter - Lexus Dixonnithya - 12/01/2014 2:00 PM EDT Did you verify this is patients current insurance? YES Payor: [facility] MEDICAID / Plan: [facility] MEDICAID [id number] [place] / Product Type: HMO [id number] Effective 04/16/09: [employer] will not retro referral requests over 90 [...] insurance must be obtained and registered in [facility] or their referral can not be processed. Who is calling to request this referral? SPOUSE If the caller is not the patient, what is their name? DECEMBER FIRST and LAST NAME of SPECIALIST PATIENT is seeing: JOSH VANCE What specialty is this? PAIN MANAGEMENT DIAGNOSIS Patient is being seen for (Not a body part or a procedure): PAIN ALL OVER HIS BODY Have you seen this SPECIALIST for this PROBLEM/DX before?NO If YES, when: Have you checked REVIEW or the APPT DESK to see if this referral has already been done or has visits left? YES Who referred the patient to this specialty? SELF Is this visit:Initial Visit Address of Specialist:[facility] Phone # of Specialist:[phone] Fax #: (if applicable):[phone] Does patient have an appointment scheduled?: NO Date of appointment- (including a retro-request): TBD Is this appointment related to: Not MVA, WC or Surgery related documented in this encounter Plan of Treatment Not on file documented as of this encounter Visit Diagnoses Not on filedocumented in this encounter Care Teams Operations Expert Relationship Specialty Start Date End Date Yoel Cervantes MD [address] [place] [phone] PCP - General Internal Medicine 06/24/15 12/21/20 Yoel Cervantes MD [address] [place] [phone] PCP - General 09/22/14 06/23/15 Suman Lu PA-C [address] [place] [phone] PCP - General Internal Medicine 12/22/20 Chari Dee MD [address] [place] [phone] Specialist Cardiology 07/25/23 documented as of this encounter
== END 2024-12-04 13:36 | disposition home or self-care (01) ==
LOC: HO.HOS 13:20
PROVIDERS: PCP Physician Assistant Medical; Visit Provider Orthopaedic Surgery
DX: M17.0 Bilateral primary osteoarthritis of knee (principal)
CPT/HCPCS: 99213; G2211

== ENCOUNTER → 2024-12-04 13:20 | Outpatient (BNVA) | payer MEDICARE, MEDICAID, SELFPAY | PROVIDERS: PCP Physician Assistant Medical; Visit Provider Orthopaedic Surgery | DX: M17.0 Bilateral primary osteoarthritis of knee (principal) | CPT/HCPCS: 99212 ==

== ENCOUNTER 2024-12-26 12:46 | Inpatient (IN) | payer MEDICARE, MEDICAID, SELFPAY ==
[2024-12-26] VITALS (22 sets, daily range): BP systolic 107–158; BP diastolic 52–85; PULSE 74–110; RESP 12–22; TEMP 36–37.2; O2SAT 72–98; BMI 29.9
--- NOTE | ~2024-12-26 | XR_ITS ---
EXAMINATION: XR ELBOW 3 VIEWS LEFT HISTORY: pain, fall COMPARISON: There are no prior studies available for comparison. FINDINGS: Three views of the left elbow are submitted. Osseous mineralization is normal. There is no fracture or dislocation. The joint spaces are preserved. Soft tissue calcifications adjacent to the lateral humeral epicondyle are likely ligamentous in nature. There is no joint effusion. There is soft tissue swelling over the olecranon. XR/XR elbow LT min 3V IMPRESSION: Probable ligamentous calcifications adjacent to the lateral humeral epicondyle. Soft tissue swelling over the olecranon. Otherwise unremarkable examination of the left elbow. Electronically signed by: Paco Briscoe MD 12/26/2024 02:57 PM EDT
--- NOTE | ~2024-12-26 | CT_ITS ---
CLINICAL HISTORY: fall confused CT cervical spine without contrast Comparison: None Findings: Normal vertebral body alignment. Multilevel disc space narrowing and endplate osteophyte formation, as well as facet hypertrophy. Anterior interbody fusion at C5-C6 and C6-C7. No acute fractures or dislocations. No acute findings on limited view of the intracranial contents. Bilateral sphenoethmoid and maxillary sinus mucosal thickening. Soft tissues of the neck are normal. Lung apices are clear. IMPRESSION: No acute findings. This document has been electronically signed by: Todd Brown MD on 12/26/2024 17:44:35
--- NOTE | ~2024-12-26 | CT_ITS ---
CLINICAL HISTORY: hypoxia CT angiography chest with contrast. 3D Postprocessing. Comparison: None Findings: Images are degraded by motion artifact. The heart is normal size. RV/LV ratio is normal. Calcification of the coronary vasculature. The thoracic aorta is normal caliber. No acute pulmonary embolus. The visualized thyroid and mediastinum are unremarkable. No consolidation or effusion. The visualized upper abdomen is unremarkable. The bones are intact. IMPRESSION: 1. No pulmonary embolus. 2. Coronary artery disease. This document has been electronically signed by: Todd Brown MD on 12/26/2024 17:50:19
--- NOTE | ~2024-12-26 | XR_ITS ---
EXAMINATION: XR CHEST CLINICAL INFORMATION: cough COMPARISON: June 22, 2023. TECHNIQUE: Frontal view of the chest was obtained. FINDINGS: Mild prominence of the interstitial markings in the perihilar regions. Poor inspiration. No consolidation pleural effusion or pneumothorax. Cardiomediastinal silhouette size is normal. Calcified plaque aortic arch. Degenerative changes in the shoulders. Mild multilevel thoracic spondylosis. Metallic hardware in the lower cervical spine no fully included in the [id number]. XR/XR chest 1V IMPRESSION: Consider mild interstitial lung edema versus acute small airway inflammatory processes in the correct clinical setting Electronically signed by: Derian Johnson MD 12/26/2024 02:59 PM EDT
--- NOTE | ~2024-12-26 | CT_ITS ---
CLINICAL HISTORY: fall confusion CT head without contrast Comparison: None Findings: Examination degraded by motion artifact. No intra-axial mass, midline shift, hydrocephalus, or acute hemorrhage. Age appropriate cerebral volume loss. Patchy low-density within the periventricular and subcortical white matter. Mild bilateral ethmoid, sphenoid, and maxillary sinus mucosal thickening. Mastoids are clear. The orbits are within normal limits. There is no acute fracture. IMPRESSION: 1. No acute intracranial findings. 2. Sinus disease. This document has been electronically signed by: Todd Brown MD on 12/26/2024 17:48:24
--- NOTE | 2024-12-26 12:53 | ED.AMS ---
HPI - Altered Mental Status General Chief Complaint: Altered Mental Status Stated Complaint: AMS,H/O UTI'S PER EMS Time Seen by Provider: 12/26/24 12:49 Source: patient, EMS and old records reviewed Mode of arrival: EMS Limitations: altered mental status History of Present Illness ED Provider: ROMARIO HPI narrative: 69 yo male with PMH of CAD, BPH, urinary retention due to BPH, HTN, DM, HLD, CVA, hx of pseudomonas UTI S to cefepime here with c/o family noticing more confusion and him hearing voices for 2 days. He tells me on arrival he does feel confused he doesn't know the year. He states he fell 2 days ago playing football with his grandson - no LOC but hurt L elbow. He notes he has pain when he urinates but denies CP/SOB, cough, fevers, abd pain n/v/d. He does have hx of UTI in past. He states I have that thing that girls get in their urine. EMS notes he was confused en route. told EMS he was talking to his granddaughter last night who wasn't with them. MD complaint: altered mental status, confusion and decreased responsiveness Onset (ago): day(s) (2) Timing confirmed by: family member Severity: moderate Consistency of symptoms: waxing and waning Context: trauma Associated symptoms: other (dysuria) Related Data Home Medications ?Medication ?Instructions ?Recorded ?Confirmed albuterol sulfate 90 mcg/actuation 2 puff inhalation BID PRN Wheezing 06/19/20 12/04/24 aerosol inhaler atorvastatin 80 mg tablet 80 mg PO BEDTIME 06/19/20 12/04/24 clopidogrel 75 mg tablet 75 mg PO DAILY 06/19/20 12/04/24 duloxetine 60 mg capsule,delayed 60 mg PO DAILY 06/19/20 12/04/24 release lamotrigine 200 mg tablet 100 mg PO BID 06/19/20 12/04/24 amlodipine 10 mg tablet 1 tab PO DAILY 01/25/22 12/04/24 aspirin 81 mg tablet,delayed 1 tab PO DAILY 01/25/22 12/04/24 release fluticasone propionate 50 2 spray intranasal DAILY PRN 01/25/22 12/04/24 mcg/actuation nasal Allergies spray,suspension insulin glargine 100 unit/mL (3 50 unit subcut BEDTIME 01/25/22 12/04/24 mL) subcutaneous pen (Lantus Solostar U-100 Insulin) insulin lispro 100 unit/mL 15 unit subcut TIDAC 01/25/22 12/04/24 subcutaneous solution (Humalog U-100 Insulin) mirtazapine 15 mg disintegrating 1 tab PO BEDTIME 01/25/22 12/04/24 tablet omeprazole 20 mg capsule,delayed 1 cap PO DAILY@0630 01/25/22 12/04/24 release promethazine 25 mg tablet 1 tab PO Q8H PRN nausea 01/25/22 12/04/24 cholecalciferol (vitamin D3) 50 50 mcg PO DAILY 06/22/23 12/04/24 mcg (2,000 unit) capsule duloxetine 30 mg capsule,delayed 30 mg PO DAILY 06/22/23 12/04/24 release empagliflozin 10 mg tablet 10 mg PO DAILY 06/22/23 12/04/24 (Jardiance) finasteride 5 mg tablet (Proscar) 5 mg PO DAILY 06/22/23 12/04/24 metoprolol tartrate 100 mg tablet 50 mg PO BID 06/22/23 12/04/24 clonazepam 1 mg tablet 0.5 mg PO TID 01/22/24 12/04/24 alprazolam 0.25 mg tablet 0.25 mg PO DAILY PRN anxiety attack 07/03/24 12/04/24 diclofenac sodium 1 % topical gel 4 g topical QID PRN joint pain 07/03/24 12/04/24 gabapentin 600 mg tablet 600 mg PO TID 07/03/24 12/04/24 naproxen 500 mg tablet 500 mg PO BID PRN Pain 07/03/24 12/04/24 nitroglycerin 0.4 mg sublingual 0.4 mg sublingual Q5M PRN Chest 07/03/24 12/04/24 tablet Pain prazosin 1 mg capsule 1 mg PO BEDTIME 07/03/24 12/04/24 tramadol 50 mg tablet 50 mg PO Q6-8H PRN pain 07/03/24 12/04/24 Previous Rx's ?Medication ?Instructions ?Recorded tamsulosin 0.4 mg capsule 0.8 mg (2 x 0.4 mg) PO BEDTIME #30 07/03/20 caps cefuroxime axetil 250 mg tablet 250 mg PO BID 4 days #8 tabs 02/12/24 oxycodone 5 mg tablet 5 mg PO Q12H PRN pain #30 tabs 10/08/24 Allergies Allergy/AdvReac Type Severity Reaction Status Date / Time lisinopril [LISINOPRIL] Allergy Unknown Cough Verified 12/26/24 12:59 pregabalin [From LYRICA] Allergy Unknown Weakness Verified 12/26/24 12:59 divalproex sodium Allergy Unconscious Verified 12/26/24 12:59 [From Depakote] Review of Systems Review of Systems: Constitutional : No Fever, No Chills ENT/Mouth : No Ear Pain, No Hoarseness, No sore throat Eyes: No Eye Pain, No Swelling, No Redness, No Foreign Body Cardiovascular : No Chest Pain, No SOB Respiratory : No Cough, No Dyspnea Gastrointestinal : No Nausea, No Vomiting, No Diarrhea, No abdominal Pain Genitourinary : pos Dysuria, No Hematuria Musculoskeletal : positive joint pain, No Myalgias, No Joint Swelling Skin : No Skin lacerations, No rash Neuro : No Weakness, No Numbness, No Loss of Consciousness, No Dizziness, No Headache All other systems reviewed and are negative PMFSH Past Medical History Attestation statement: The following information was validated with the patient. Source: old records reviewed Medical History Diabetic foot ulcer Fatty liver Asthma Vertebral artery stenosis QT prolongation PAD (peripheral artery disease) GERD (gastroesophageal reflux disease) Thyroid disease Diverticulitis Diverticulosis Dementia DJD of shoulder Insomnia Sleep apnea Depression Myocardial infarction Allergic rhinitis Cervicalgia 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 hyperplasia Hypertension COVID-19 Fall Hyperlipidemia Intracranial atherosclerosis BPH (benign prostatic hyperplasia) Coronary artery disease Diabetes Perforation of sigmoid colon due to diverticulitis High blood cholesterol Stroke Anxiety Surgical History S/P peripheral artery angioplasty H/O colonoscopy Hx of tonsillectomy History of shoulder surgery Hx of cervical spine surgery History of esophagogastroduodenoscopy (EGD) H/O neck surgery History of heart artery stent Family History Family History Other Coronary artery disease Diabetes Social History Social History (Reviewed 12/26/24 @ 12:55 by MYRNA Lizarraga Household Members: Spouse Housing: Assisted Living Facility Do you presently have visiting nurse or other home services: Yes Unable to assess alcohol history related to: Unknown Alcohol intake: never Comment: heels elevated with pillows Patient Tobacco Use Status: Never used Tobacco Smoked in Last 30 Days: No Use of substances other than those prescribed or required for medical reasons: No Advance Directives: Yes Advance Directives on File: Yes Advance Directives Date on File: 07/15/20 Do you have a plan to hurt others: No Plan service: No Current occupational status: unemployed Physical Exam ED Vital Signs: Vital Signs - 24 hr 12/26/24 12:42 12/26/24 12:55 12/26/24 12:57 Temperature Pulse Rate 110 H 76 109 H Respiratory Rate 19 Blood Pressure 114/56 L 126/82 114/58 L Pulse Oximetry 98 89 L 98 Oxygen Delivery Method Nasal Cannula Room Air Nasal Cannula Oxygen Flow Rate 4 4 12/26/24 13:28 12/26/24 13:43 12/26/24 13:58 Temperature Pulse Rate 75 76 76 Respiratory Rate 17 12 15 Blood Pressure 118/75 125/71 109/52 L Pulse Oximetry 95 95 95 Oxygen Delivery Method Nasal Cannula Nasal Cannula Nasal Cannula Oxygen Flow Rate 4 4 4 12/26/24 14:13 12/26/24 14:42 12/26/24 15:29 Temperature 98.2 F 97.5 F Pulse Rate 75 74 74 Respiratory Rate 22 H 16 19 Blood Pressure 107/56 L 158/85 H 117/64 Pulse Oximetry 97 98 93 Oxygen Delivery Method Nasal Cannula Room Air Oxymask Oxygen Flow Rate 4 6 12/26/24 15:30 12/26/24 15:32 12/26/24 15:55 Temperature 98.9 F Pulse Rate 77 Respiratory Rate 14 13 Blood Pressure 117/56 L 117/60 Pulse Oximetry 72 L 95 95 Oxygen Delivery Method Nasal Cannula Oxymask Oxymask Oxygen Flow Rate 2 6 6 12/26/24 16:11 12/26/24 16:14 12/26/24 16:48 Temperature 97.6 F Pulse Rate 76 74 Respiratory Rate 19 15 Blood Pressure 116/60 108/62 Pulse Oximetry 95 Oxygen Delivery Method Oxymask Oxygen Flow Rate 2.5 12/26/24 16:51 Temperature 96.8 F Pulse Rate 76 Respiratory Rate 18 Blood Pressure 117/64 Pulse Oximetry 94 Oxygen Delivery Method Aerosol Mask Oxygen Flow Rate BMI result Body Mass Index 29.9 Appearance: Alert. Oriented X to person and place. No acute distress. Eyes: Pupils equal, round and reactive to light. ENT: Pharynx normal. Neck: Normal inspection. Neck supple. CVS: Normal heart rate and rhythm. Pulses normal. Respiratory: No respiratory distress. Breath sounds diminished in both bases Abdomen: Soft and nontender. Skin: Skin warm and dry. pale skin color. Normal skin turgor. Extremities: No lower extremity edema. No calf ttp Neuro: Oriented X2. No motor deficit. No sensory deficit. CN2-12 intact Course Course Course Narrative: increased O2 demands CTA:PE and neb ordered no CHF on CXR and BNP normal Reevaluation(s) Reevaluation #1: 92% on 5L oxymask his VBG was stable, pending CT head/cspine/CTA already given cefepime. plan to admit Reevaluation #2: cased signed out to Dr. Rodriguez 538pm Medications Administered Discontinued Medications Generic Name Dose Route Start Last Admin Trade Name Freq PRN Reason Stop Dose Admin Albuterol Sulfate 2.5 mg/ 0 mg 12/26/24 16:11 12/26/24 16:18 Albuterol/Ipratropium 3 ml INHALE 12/26/24 16:12 5 dose ONCE ONE Administration Cefepime HCl 2 gm in 50 mls @ 100 mls/hr 12/26/24 13:03 12/26/24 14:17 Maxipime IV 12/26/24 13:32 Infused ONCE ONE Infusion Lactated Ringer's 1,000 mls @ 999 mls/hr 12/26/24 14:09 12/26/24 15:49 Lr IV 12/26/24 15:09 Infused .Q1H1M ONE Infusion Iohexol 100 ml 12/26/24 16:03 12/26/24 16:06 Iohexol 350 Mg/Ml 100 Ml Infus..Btl IV 12/26/24 16:04 65 ml ONCE ONE Administration Medical Decision Making Medical Decision Making MDM Narrative: 69 yo male with PMH of CAD, BPH, urinary retention due to BPH, HTN, DM, HLD, CVA, hx of pseudomonas UTI S to cefepime here with c/o confusion, recent fall, low O2 sats but denies CP/SOB he will need labs, cultures, CXR, UA and given his history I am going to start on cefepime. He will also get CT head/cspine for recent fall and L elbow pain s/p fall. Possible UTI, pneumonia, ICH. Differential Diagnosis Differential Diagnoses: The differential diagnosis associated with the presentation includes viral syndrome, UTI, pneumonia, dehydration, anemia Admission/Observation Consideration of admission/observation: Escalation of care including admission/observation considered will need admission for UTI/sepsis work up Consult Healthcare Provider Management of the patient was discussed with: Hospitalist (will admit) Lab Data MDM Lab Attestation statement: I reviewed the patient's lab results. 12/26/24 13:26 12/26/24 13:31 Labs: Lab Results 12/26/24 12/26/24 12/26/24 Range/Units 13:26 13:31 13:44 WBC 11.3 H (4.8-10.8) X10*3/uL RBC 5.27 (4.60-5.80) X10*6/uL Hgb 14.9 (14.0-18.0) g/dl Hct 45.8 (42.0-52.0) % MCV 86.9 (80.0-98.0) fL MCH 28.3 (27.0-33.0) pg MCHC 32.5 (31.0-36.0) g/dl RDW 13.2 (11.0-16.0) % Plt Count 201 (160-400) X10*3/uL MPV 9.6 (9.4-12.4) fL Immature Gran % (Auto) 0.9 H (0.0-0.4) % Neut % (Auto) 68.5 (45-73) % Lymph % (Auto) 16.1 L (20-40) % [place] % (Auto) 11.8 H (2-11) % Eos % (Auto) 2.3 (0-4) % Baso % (Auto) 0.4 (0-2) % Lymph # (Auto) 1.8 (1.2-4.9) X10*3/uL [place] # (Auto) 1.3 H (0.1-1.2) X10*3/uL Eos # (Auto) 0.3 (0.0-0.4) X10*3/uL Baso # (Auto) 0.1 (0.0-0.2) X10*3/uL Abs Immat Gran (auto) 0.10 H (0.00-0.03) X10*3/uL Absolute Neuts (auto) 7.7 (2.0-8.3) x10*3/uL Absolute Nucleated RBC 0.000 (0.0-0.012) X10*3/uL Nucleated RBC % (auto) 0.0 (0.0-0.2) /100WBC VBG pH 7.36 (7.32-7.43) VBG pCO2 56 mmHg VBG pO2 63 mmHg VBG HCO3 32 H (22-26) mmol/L VBG O2 Saturation 86.0 % VBG Base Excess 5.3 mmol/L Sodium 142 (135-145) mmol/L Potassium 3.8 (3.3-5.1) mmol/L Chloride 100 (96-108) mmol/L Carbon Dioxide 29 (22-29) mmol/L Anion Gap 17 (12-20) BUN 9 (9-16) mg/dL Creatinine 0.82 (0.5-1.4) mg/dL Estim Creat Clear Calc 86.4 Estimated GFR > 60 POC Glucose (60-115) mg/dL Random Glucose 193 H (60-115) mg/dL Lactic Acid 1.7 (0.5-2.0) mmol/L Calcium 9.8 (8.4-10.2) mg/dL Magnesium 2.2 (1.6-2.6) mg/dL Total Bilirubin 0.5 (0.0-1.0) mg/dL Direct Bilirubin 0.2 (0.0-0.5) mg/dL AST 16 (5-37) U/L ALT 13 (0-40) U/L Alkaline Phosphatase 93 (39-117) U/L Total Creatine Kinase 50 (38-174) U/L Troponin I High Sens 4.6 (<3.5-35.0) ng/L C-Reactive Protein 33.70 H (< or = 0.50) mg/dL B-Natriuretic Peptide 13 (<100) pg/mL Total Protein 7.9 (6.5-8.0) g/dL Albumin 4.4 (3.5-5.0) g/dL Lipase 23 (8-78) U/L Procalcitonin 0.09 ng/mL TSH 1.60 (0.32-4.0) uIU/mL Urine Color Urine Appearance Urine pH (5.0-9.0) Ur Specific [place] (1.005-1.025) Urine Protein (Neg-Trace) mg/dL Urine Glucose (UA) (Negative) mg/dL Urine Ketones (Negative) mg/dL Urine Blood (Negative) Urine Nitrite (Negative) Ur Leukocyte Esterase (Negative) Urine RBC (0-2) /HPF Urine WBC (0-5) /HPF Urine WBC Clumps Ur Squamous Epith Cells (0-2) /HPF Urine Bacteria (None Seen) Hyaline Casts (0-2) /LPF Influenza Type A (PCR) NEGATIVE (Negative) Influenza Type B (PCR) NEGATIVE (Negative) RSV RNA Qual (PCR) NEGATIVE (Negative) SARS-CoV-2 RNA (RT-PCR) NEGATIVE (Negative) 12/26/24 12/26/24 Range/Units 13:53 15:43 WBC (4.8-10.8) X10*3/uL RBC (4.60-5.80) X10*6/uL Hgb (14.0-18.0) g/dl Hct (42.0-52.0) % MCV (80.0-98.0) fL MCH (27.0-33.0) pg MCHC (31.0-36.0) g/dl RDW (11.0-16.0) % Plt Count (160-400) X10*3/uL MPV (9.4-12.4) fL Immature Gran % (Auto) (0.0-0.4) % Neut % (Auto) (45-73) % Lymph % (Auto) (20-40) % [place] % (Auto) (2-11) % Eos % (Auto) (0-4) % Baso % (Auto) (0-2) % Lymph # (Auto) (1.2-4.9) X10*3/uL [place] # (Auto) (0.1-1.2) X10*3/uL Eos # (Auto) (0.0-0.4) X10*3/uL Baso # (Auto) (0.0-0.2) X10*3/uL Abs Immat Gran (auto) (0.00-0.03) X10*3/uL Absolute Neuts (auto) (2.0-8.3) x10*3/uL Absolute Nucleated RBC (0.0-0.012) X10*3/uL Nucleated RBC % (auto) (0.0-0.2) /100WBC VBG pH (7.32-7.43) VBG pCO2 mmHg VBG pO2 mmHg VBG HCO3 (22-26) mmol/L VBG O2 Saturation % VBG Base Excess mmol/L Sodium (135-145) mmol/L Potassium (3.3-5.1) mmol/L Chloride (96-108) mmol/L Carbon Dioxide (22-29) mmol/L Anion Gap (12-20) BUN (9-16) mg/dL Creatinine (0.5-1.4) mg/dL Estim Creat Clear Calc Estimated GFR POC Glucose 147 H (60-115) mg/dL Random Glucose (60-115) mg/dL Lactic Acid (0.5-2.0) mmol/L Calcium (8.4-10.2) mg/dL Magnesium (1.6-2.6) mg/dL Total Bilirubin (0.0-1.0) mg/dL Direct Bilirubin (0.0-0.5) mg/dL AST (5-37) U/L ALT (0-40) U/L Alkaline Phosphatase (39-117) U/L Total Creatine Kinase (38-174) U/L Troponin I High Sens (<3.5-35.0) ng/L C-Reactive Protein (< or = 0.50) mg/dL B-Natriuretic Peptide (<100) pg/mL Total Protein (6.5-8.0) g/dL Albumin (3.5-5.0) g/dL Lipase (8-78) U/L Procalcitonin ng/mL TSH (0.32-4.0) uIU/mL Urine Color Yellow Urine Appearance Clear Urine pH 6.0 (5.0-9.0) Ur Specific [place] >= 1.030 H (1.005-1.025) Urine Protein Trace (Neg-Trace) mg/dL Urine Glucose (UA) >=1000 H (Negative) mg/dL Urine Ketones Trace (Negative) mg/dL Urine Blood Trace H (Negative) Urine Nitrite Positive H (Negative) Ur Leukocyte Esterase Small (1+) H (Negative) Urine RBC 0-2 (0-2) /HPF Urine WBC 11-20 (0-5) /HPF Urine WBC Clumps Present Ur Squamous Epith Cells 0-2 (0-2) /HPF Urine Bacteria 3+ (None Seen) Hyaline Casts 0-2 (0-2) /LPF Influenza Type A (PCR) (Negative) Influenza Type B (PCR) (Negative) RSV RNA Qual (PCR) (Negative) SARS-CoV-2 RNA (RT-PCR) (Negative) Independent Interpretation I performed an independent interpretation of an: EKG, Plain X-Ray (no focal consolidation) and CT Scan Interpretation: Rate: 75 Rhythm: NSR [place]: left Normal P waves. Normal TASHI. Normal QRS complex. ST T wave : inverted t waves V1-V3, no RAYA qTC: 460 prior studies: no acute ischemia, t wave inversions present on old ecgs The study has been interpreted contemporaneously by me. . Radiology Impression Discussion of test interpretation with radiology: I have reviewed the radiologist's reading. Independent Historian Clinical information obtained from an independent historian. History obtained from or confirmed by: EMS External Record Review External record reviewed: Inpatient record and Office record Critical Care Time Critical Care Time Critical Care Time: Yes Total Critical Care Time: 60 Attestation: Time is exclusive of separately billable procedures. Time includes: direct patient care, patient reassessment, coordination of patient care, interpretation of data (laboratory data, pulse oximetry, arterial blood gases and chest xrays), review of patient's medical records, medical consultation and documentation of patient care. Sepsis protocol, hypoxia interventions. Procedures excluded from critical care time: electrocardiography. I attest to this time spent taking care of the patient Discharge Plan Discharge Clinical Impression: Acute UTI, Acute confusion, Hypoxia Patient Disposition: Admitted As Inpatient Print Language: Pakistani
--- NOTE | 2024-12-26 13:04 | ECG_ITS ---
Test Reason : fall Blood Pressure : */* mmHG Vent. Rate : 75 BPM Atrial Rate : 75 BPM P-R Int : 184 ms QRS Dur : 84 ms QT Int : 412 ms P-R-T Axes : 63 -23 40 degrees QTcB Int : 460 ms Normal sinus rhythm Inferior infarct , age undetermined Abnormal ECG When compared with ECG of 22-Jun-2023 15:00, No significant changes seen Referred By: Susanna Segovia Electronically Signed By: STEVE REILLY MD
[2024-12-26 13:31] LABS: MANUAL DIFF FLAG NO
[2024-12-26 13:34] LABS: Basophils Absolute Auto 0.1 X10*3/uL (0.0-0.2); Basophils Percent Auto 0.4 % (0-2); Eosinophils Absolute Auto 0.3 X10*3/uL (0.0-0.4); Eosinophils Percent Auto 2.3 % (0-4); Hematocrit 45.8 % (42.0-52.0); Hemoglobin 14.9 g/dl (14.0-18.0); Imm Gran Pct Auto 0.9 % (0.0-0.4); Lymphocytes Absolute Auto 1.8 X10*3/uL (1.2-4.9); Lymphocytes Percent Auto 16.1 % (20-40); Mean Corpuscular HGB Conc 32.5 g/dl (31.0-36.0); Mean Corpuscular Hemoglobin 28.3 pg (27.0-33.0); Mean Corpuscular Volume 86.9 fL (80.0-98.0); Mean Platelet Volume 9.6 fL (9.4-12.4); Monocytes Absolute Auto 1.3 X10*3/uL (0.1-1.2); Monocytes Percent Auto 11.8 % (2-11); Neutrophils Absolute Auto 7.7 x10*3/uL (2.0-8.3); Neutrophils Percent Auto 68.5 % (45-73); Platelet Count 201 X10*3/uL (160-400); Red Blood Count 5.27 X10*6/uL (4.60-5.80); Red Cell Distribution Width 13.2 % (11.0-16.0); White Blood Count 11.3 X10*3/uL (4.8-10.8)
[2024-12-26] MEDS: cefEPime HCl/D5W 2 GM/50 ML PIGGYBACK IV (13:39)
[2024-12-26 13:46] LABS: Venous Blood Gas Refer to POC result
[2024-12-26 13:47] LABS: VBG Base Excess 5.3 mmol/L; VBG HCO3 32 mmol/L (22-26); VBG pCO2 56 mmHg; VBG pH 7.36 (7.32-7.43); VBG pO2 63 mmHg
[2024-12-26 13:48] LABS: Lactic Acid 1.7 mmol/L (0.5-2.0)
[2024-12-26 13:54] LABS: B Type Natriuretic Peptide 13 pg/mL (<100)
[2024-12-26 13:56] LABS: Alanine Aminotransferase 13 U/L (0-40); Albumin Level 4.4 g/dL (3.5-5.0); Alkaline Phosphatase 93 U/L (39-117); Anion Gap 17 (12-20); Aspartate Amino Transferase 16 U/L (5-37); Bilirubin Direct 0.2 mg/dL (0.0-0.5); Bilirubin Total 0.5 mg/dL (0.0-1.0); Blood Urea Nitrogen 9 mg/dL (9-16); Calcium 9.8 mg/dL (8.4-10.2); Carbon Dioxide 29 mmol/L (22-29); Chloride 100 mmol/L (96-108); Creatinine Clr Calc Pharmacy 86.4; Estimated Glomerular Filt Rate > 60; Glucose Random 193 mg/dL (60-115); Lipase 23 U/L (8-78); Magnesium 2.2 mg/dL (1.6-2.6); Potassium 3.8 mmol/L (3.3-5.1); Sodium 142 mmol/L (135-145); Total Protein 7.9 g/dL (6.5-8.0)
[2024-12-26 14:02] LABS: Appearance Urine Clear; Color Urine Yellow; Glucose Urine UA >=1000 mg/dL (Negative); Leukocyte Esterase Urine Small (1+) (Negative); Nitrite Urine Positive (Negative); Specific Gravity - Urine >= 1.030 (1.005-1.025); UMIC TRIGGER UACC YES; Urine Blood Trace (Negative); Urine Ketones Trace mg/dL (Negative); Urine Protein Trace mg/dL (Neg-Trace)
[2024-12-26 14:04] LABS: Troponin-I High Sensitivity 4.6 ng/L (<3.5-35.0)
[2024-12-26 14:10] LABS: Bacteria Urine 3+ (None Seen); Hyaline Casts Urine 0-2 /LPF (0-2); RBC Urine 0-2 /HPF (0-2); Squamous Epithelial Cell Urine 0-2 /HPF (0-2); UACC Culture Trigger YES; WBC Clumps Urine Present
[2024-12-26 14:15] LABS: Influenza A PCR NEGATIVE (Negative); Influenza B PCR NEGATIVE (Negative); Resp Syncy Virus RNA Qual PCR NEGATIVE (Negative); SARS COV2 PCR INHOUSE NEGATIVE (Negative)
[2024-12-26] MEDS: Lactated Ringers 1,000 ML 999 ML IV (14:18)
[2024-12-26 14:22] LABS: Procalcitonin 0.09 ng/mL
--- NOTE | 2024-12-26 14:29 | PC.NURSE ---
MD asked by this RN for fluids if needed; LR 1 ltr bolus ordered and started at 1418; pt's SAO2 remains 87% RA; 94% 2 ltr; LS with scattered coarse rhonchi upper farfan; pt to xray at this time
--- NOTE | 2024-12-26 15:46 | PC.NURSE ---
Pt on 6 ltr oxymask; IVF's stopped by this RN in case of fluid overload secondary to adverse LS and SAO2 72-85% on NC O2; O2 now 96% on Oxy mask; MD at bedside; pt more lethargic then when on arrival, but wakes to voice; remains confused to most questions but was able to correctly state year; RT called for neb tx and pt to have CT-A of chest and IV meds per orders
[2024-12-26 15:47] LABS: Glucose, Whole Blood 147 mg/dL (60-115)
[2024-12-26] MEDS: iohexoL 350 MG/ML 100 ML INFUS..BTL IV (16:06)
[2024-12-26] MEDS: Albuterol Sulfate 2.5 MG, Albuterol/Iprat 2.5/0.5MG 3 ML 3 ML INHALE (16:18)
--- OUTSIDE RECORDS SUMMARY | 2024-12-26 16:44 | XMS_ITS | Encounter Summary ---
Author Organization [facility] Address [address] [place] [address] Care Team Providers Care Ornament Setter Name Role Phone Yoel Cervantes MD Primary Care Provider [phone] Suman Lu PA-C Primary Care Provider [phone] Chari Dee MD Unavailable [phone] Reason for Visit * Reason Comments E-prescribe Rx Request Encounter Details Date Type Department Care Team Description 06/21/2017 Refill Adult Medicine [address] [id number] Yoel Cervantes MD [address] [place] [address] [phone] E-prescribe Rx Request Social History Tobacco Use [...] encounter Miscellaneous Notes * Telephone Encounter - Chrissy Odonnell - 06/21/2017 3:30 PM EST Patient would like script to [...] current insurance carrier is: Payor: [facility] MEDICAID / Plan: [facility] MEDICAID HMO $0 SHEA / Product Type: HMO [id number] documented in this encounter Plan of Treatment Not on file documented as of this encounter Visit Diagnoses Not on filedocumented in this encounter Care Teams Ornament Setter Relationship Specialty Start Date End Date Yoel Cervantes MD [address] [place] [address] [phone] PCP - General Internal Medicine 06/24/15 12/21/20 Suman Lu PA-C [address] [place] [address] [phone] PCP - General Internal Medicine 12/22/20 Chari Dee MD [address] [place] [address] [phone] Specialist Cardiology 07/25/23 documented as of this encounter
--- NOTE | 2024-12-26 18:42 | PC.NURSE ---
Pt's mentation improved and he is alert/talkative; LS with scattered rhonchi; pt weaned off Oxymask 6 ltr to NC 3 ltr; SAO2 96% at this time; bladder scan shows 250ml urine in bladder at this time; made aware; MD requested FC; pt asking to try and use the urinal first; made aware
--- NOTE | 2024-12-26 19:02 | PM.IMHP ---
History of Present Illness Date of Service: 12/26/24 Attending physician on admission: Octavio Kirk Chief Complaint: confusion, AMS Pt is a 69 yo male with PMH CVA, UTI pseudomonas, IDDM II, BPH, hypertension, hyperlipidemia, DC with PCI and stent x1, cervical spine surgery, osteoarthritis was sent to the emergency room for increasing confusion especially over the last 48 hours. Per patient's spouse patient was speaking to his grandchildren but they were not actually present. Patient reported to ED provider that he fell 2 days prior while he was playing football with his grandchild. Head CT negative for acute findings. Left elbow negative for acute issues with chronic calcification in the elbow joint. Patient states today that he has not seen his grandchildren for at least 1 week as they live in [place]. Patient did state that his grandchildren were ill with flu and cold like symptoms. Patient currently can tell me he is at [facility] and that it is December 2024. Initially patient was confused and alert to self only in the ED. Patient did receive IV fluids and started on cefepime with a history of Pseudomonas in his urine. UA appears positive for UTI. Chest x-ray and CTA negative for evidence of pneumonia. There is possible sinusitis and patient does present with nasal congestion. Patient states he has productive cough of green sputum. The CTA was negative for PE as well. Lactate 1.7. Procalcitonin 0.09. CRP 33.7. Patient does have a mild leukocytosis of 11.3 with no bandemia. Patient currently afebrile and denies any chills or fever at home. Patient currently denies any chest pain or shortness of breath at rest. Patient is on nasal cannula for support. Patient does not use oxygen at home. Patient does explain that overall he is having more trouble with ambulation when using his walker. His apartment is small so using his walker is difficult. Patient states both he and his spouse have complex health problems. Patient no longer drives since having a stroke. Patient does not have any in-home nursing services. Patient states daughter helps with most of there everyday living activities including laundry and cooking. Patient does acknowledge that he has chronic memory problems but more likely acute encephalopathy secondary to UTI. Patient states he thinks he has dementia but has not been seen by a neurologist for official diagnosis. Review of Systems Review of Systems: Patient currently denies any chest pain, shortness of breath at rest but is wearing oxygen via nasal cannula. Patient denies any abdominal pain or nausea with vomiting. Patient denies any visual changes, headache, but is reporting a runny nose. Patient denies any sore throat or difficulty swallowing. Patient denies any current open wounds or skin issues. Yes all other systems are reviewed and are negative [facility] Medical History Diabetic foot ulcer Fatty liver Asthma Vertebral artery stenosis QT prolongation PAD (peripheral artery disease) GERD (gastroesophageal reflux disease) Thyroid disease Diverticulitis Diverticulosis Dementia DJD of shoulder Insomnia Sleep apnea Depression Myocardial infarction Allergic rhinitis Cervicalgia 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 hyperplasia Hypertension COVID-19 Fall Hyperlipidemia Intracranial atherosclerosis BPH (benign prostatic hyperplasia) Coronary artery disease Diabetes Perforation of sigmoid colon due to diverticulitis High blood cholesterol Stroke Anxiety Cognitive capacity: Currently alert and orientated x3 Functional capacity: uses cane/walker Family History Other Coronary artery disease Diabetes Surgical History S/P peripheral artery angioplasty H/O colonoscopy Hx of tonsillectomy History of shoulder surgery Hx of cervical spine surgery History of esophagogastroduodenoscopy (EGD) H/O neck surgery History of heart artery stent Social History (Updated 12/26/24 @ 19:40 by CALVIN Gonzalez) Household Members: Spouse Housing: Assisted Living Facility Do you presently have visiting nurse or other home services: Yes Unable to assess alcohol history related to: Unknown Alcohol intake: former Year quit: 2006 Comment: heels elevated with pillows Patient Tobacco Use Status: Never used Tobacco Smoked in Last 30 Days: No Use of substances other than those prescribed or required for medical reasons: No Advance Directives: Yes Advance Directives on File: Yes Advance Directives Date on File: 07/15/20 Do you have a plan to hurt others: No Plan service: No Current occupational status: unemployed Ebola Risk: Travel/Contact With Anyone From Affected Area/s: No Has Patient Experienced Ebola Symptoms: No Meds Allergies Allergy/AdvReac Type Severity Reaction Status Date / Time lisinopril [LISINOPRIL] Allergy Unknown Cough Verified 12/26/24 12:59 pregabalin [From LYRICA] Allergy Unknown Weakness Verified 12/26/24 12:59 divalproex sodium Allergy Unconscious Verified 12/26/24 12:59 [From Depakote] Active Medications: Current Medications Acetaminophen (Acetaminophen 325 Mg Tablet) 650 mg PO Q6H PRN PRN Reason: Pain, Mild 1-3,fever,headache Calcium Carbonate (Calcium Carbonate 750 Mg Tab.Chew) 750 mg PO Q4H PRN PRN Reason: Heartburn Magnesium Hydroxide (Milk Of Magnesia 30 Ml Oral.Susp) 30 ml PO DAILY PRN PRN Reason: Constipation Melatonin (Melatonin 3 Mg Tablet) 6 mg PO BEDTIME PRN PRN Reason: Insomnia Sodium Chloride (0.9 % Sodium Chloride Flush 3 Ml Syringe) 3 [facility] Medications ?Medication ?Instructions ?Recorded ?Confirmed ?Last Taken ?Type albuterol sulfate 90 mcg/actuation 2 puff inhalation BID PRN Wheezing 06/19/20 12/04/24 01/24/22 History aerosol inhaler atorvastatin 80 mg tablet 80 mg PO BEDTIME 06/19/20 12/04/24 02/07/24 19:00 History clopidogrel 75 mg tablet 75 mg PO DAILY 06/19/20 12/04/24 02/08/24 07:00 History duloxetine 60 mg capsule,delayed 60 mg PO DAILY 06/19/20 12/04/24 02/08/24 07:00 History release lamotrigine 200 mg tablet 100 mg PO BID 06/19/20 12/04/24 02/08/24 07:00 History amlodipine 10 mg tablet 1 tab PO DAILY 01/25/22 12/04/24 02/08/24 07:00 History aspirin 81 mg tablet,delayed 1 tab PO DAILY 01/25/22 12/04/24 02/08/24 07:00 History release fluticasone propionate 50 2 spray intranasal DAILY PRN 01/25/22 12/04/24 01/24/22 History mcg/actuation nasal Allergies spray,suspension insulin glargine 100 unit/mL (3 50 unit subcut BEDTIME 01/25/22 12/04/24 02/07/24 19:00 History mL) subcutaneous pen (Lantus Solostar U-100 Insulin) insulin lispro 100 unit/mL 15 unit subcut TIDAC 01/25/22 12/04/24 02/08/24 07:00 History subcutaneous solution (Humalog U-100 Insulin) mirtazapine 15 mg disintegrating 1 tab PO BEDTIME 01/25/22 12/04/24 02/07/24 19:00 History tablet omeprazole 20 mg capsule,delayed 1 cap PO DAILY@0630 01/25/22 12/04/24 02/08/24 07:00 History release promethazine 25 mg tablet 1 tab PO Q8H PRN nausea 01/25/22 12/04/24 Unknown History cholecalciferol (vitamin D3) 50 50 mcg PO DAILY 06/22/23 12/04/24 02/08/24 07:00 History mcg (2,000 unit) capsule duloxetine 30 mg capsule,delayed 30 mg PO DAILY 06/22/23 12/04/24 02/08/24 07:00 History release empagliflozin 10 mg tablet 10 mg PO DAILY 06/22/23 12/04/24 02/08/24 07:00 History (Jardiance) finasteride 5 mg tablet (Proscar) 5 mg PO DAILY 06/22/23 12/04/24 02/08/24 07:00 History metoprolol tartrate 100 mg tablet 50 mg PO BID 06/22/23 12/04/24 02/08/24 07:00 History clonazepam 1 mg tablet 0.5 mg PO TID 01/22/24 12/04/24 02/08/24 07:00 History alprazolam 0.25 mg tablet 0.25 mg PO DAILY PRN anxiety attack 07/03/24 12/04/24 Unknown History diclofenac sodium 1 % topical gel 4 g topical QID PRN joint pain 07/03/24 12/04/24 Unknown History gabapentin 600 mg tablet 600 mg PO TID 07/03/24 12/04/24 Unknown History naproxen 500 mg tablet 500 mg PO BID PRN Pain 07/03/24 12/04/24 Unknown History nitroglycerin 0.4 mg sublingual 0.4 mg sublingual Q5M PRN Chest 07/03/24 12/04/24 Unknown History tablet Pain prazosin 1 mg capsule 1 mg PO BEDTIME 07/03/24 12/04/24 Unknown History tramadol 50 mg tablet 50 mg PO Q6-8H PRN pain 07/03/24 12/04/24 Unknown History econazole nitrate 1 % topical cream 1 appl topical BID 12/26/24 12/26/24 Unknown History Physical Exam Vital Signs and Narrative: Vital Signs: Last Vital Signs Temp 97.6 F 12/26/24 18:22 Pulse 75 12/26/24 18:22 Resp 16 12/26/24 18:22 BP 125/66 12/26/24 18:22 Pulse Ox 96 12/26/24 18:44 O2 Del Method Nasal Cannula 12/26/24 18:44 O2 Flow Rate 3 12/26/24 18:44 BMI result Body Mass Index 29.9 Alert and orientated X3 currently, able to answer questions re: HPI and follow commands Neuro: CN II-X11 intact, no deficits, visual acuity intact EYES: PERRLA, EOM intact, sclera nonicteric, conjunctiva pink, glasses on ENT: hearing intact, no issues with swallowing, uvula midline, lips moist, nares patent no epistaxis Cardiac: S1 S2 RRR, no murmur, no JVD, no edema in Lower ext Pulmonary: lungs diminished bilaterally, minimal expiratory wheeze Abdominal: BS active in all 4 quadrants, no guarding, tenderness, rebounding, distention noted MSK: strength 3/5 upper and lower extremities : no CVA tenderness no bladder distension Extremities: no edema in lower extremities, PT and DP pulses palpable +2 Psych: mood stable, judgement and insight fair Skin: Intact Results Labs 12/26/24 13:26 12/26/24 13:31 Labs: Laboratory Results - last 24 hr 12/26/24 12/26/24 12/26/24 13:26 13:31 13:44 MCV 86.9 MCH 28.3 MCHC 32.5 RDW 13.2 Plt Count 201 MPV 9.6 Immature Gran % (Auto) 0.9 H Neut % (Auto) 68.5 Lymph % (Auto) 16.1 L [place] % (Auto) 11.8 H Eos % (Auto) 2.3 Baso % (Auto) 0.4 Lymph # (Auto) 1.8 [place] # (Auto) 1.3 H Eos # (Auto) 0.3 Baso # (Auto) 0.1 Abs Immat Gran (auto) 0.10 H Absolute Neuts (auto) 7.7 Absolute Nucleated RBC 0.000 Nucleated RBC % (auto) 0.0 VBG pH 7.36 VBG pCO2 56 VBG pO2 63 VBG HCO3 32 H VBG O2 Saturation 86.0 VBG Base Excess 5.3 Anion Gap 17 Estim Creat Clear Calc 86.4 Estimated GFR > 60 POC Glucose Random Glucose 193 H Lactic Acid 1.7 Calcium 9.8 Magnesium 2.2 Total Bilirubin 0.5 Direct Bilirubin 0.2 AST 16 ALT 13 Alkaline Phosphatase 93 Total Creatine Kinase 50 Troponin I High Sens 4.6 C-Reactive Protein 33.70 H B-Natriuretic Peptide 13 Total Protein 7.9 Albumin 4.4 Lipase 23 Procalcitonin 0.09 TSH 1.60 Urine Color Urine Appearance Urine pH Ur Specific [place] Urine Protein Urine Glucose (UA) Urine Ketones Urine Blood Urine Nitrite Ur Leukocyte Esterase Urine RBC Urine WBC Urine WBC Clumps Ur Squamous Epith Cells Urine Bacteria Hyaline Casts Influenza Type A (PCR) NEGATIVE Influenza Type B (PCR) NEGATIVE RSV RNA Qual (PCR) NEGATIVE SARS-CoV-2 RNA (RT-PCR) NEGATIVE 12/26/24 12/26/24 13:53 15:43 MCV MCH MCHC RDW Plt Count MPV Immature Gran % (Auto) Neut % (Auto) Lymph % (Auto) [place] % (Auto) Eos % (Auto) Baso % (Auto) Lymph # (Auto) [place] # (Auto) Eos # (Auto) Baso # (Auto) Abs Immat Gran (auto) Absolute Neuts (auto) Absolute Nucleated RBC Nucleated RBC % (auto) VBG pH VBG pCO2 VBG pO2 VBG HCO3 VBG O2 Saturation VBG Base Excess Anion Gap Estim Creat Clear Calc Estimated GFR POC Glucose 147 H Random Glucose Lactic Acid Calcium Magnesium Total Bilirubin Direct Bilirubin AST ALT Alkaline Phosphatase Total Creatine Kinase Troponin I High Sens C-Reactive Protein B-Natriuretic Peptide Total Protein Albumin Lipase Procalcitonin TSH Urine Color Yellow Urine Appearance Clear Urine pH 6.0 Ur Specific [place] >= 1.030 H Urine Protein Trace Urine Glucose (UA) >=1000 H Urine Ketones Trace Urine Blood Trace H Urine Nitrite Positive H Ur Leukocyte Esterase Small (1+) H Urine RBC 0-2 Urine WBC 11-20 Urine WBC Clumps Present Ur Squamous Epith Cells 0-2 Urine Bacteria 3+ Hyaline Casts 0-2 Influenza Type A (PCR) Influenza Type B (PCR) RSV RNA Qual (PCR) SARS-CoV-2 RNA (RT-PCR) ECG Attestation: I personally reviewed and interpreted this ECG as follows: (Normal sinus rhythm QTC 460) Prior ECG tracings: available for review Imaging Radiologist's Impressions: Impressions Elbow X-Ray 12/26/24 13:42 IMPRESSION: Probable ligamentous calcifications adjacent to the lateral humeral epicondyle. Soft tissue swelling over the olecranon. Otherwise unremarkable examination of the left elbow. Electronically signed by: Paco Briscoe MD 12/26/2024 02:57 PM EDT RP Chest X-Ray 12/26/24 14:31 IMPRESSION: Consider mild interstitial lung edema versus acute small airway inflammatory processes in the correct clinical setting Electronically signed by: Derian Johnson MD 12/26/2024 02:59 PM EDT RP CTA chest IMPRESSION: 1. No pulmonary embolus. 2. Coronary artery disease. HEAD CT IMPRESSION: 1. No acute intracranial findings. 2. Sinus disease. Assessment and Plan (1) Acute confusion: Status: Acute Plan Pt is a 69 yo male with PMH CVA, UTI pseudomonas, IDDM II, BPH, hypertension, hyperlipidemia, DC with PCI and stent x1, cervical spine surgery, osteoarthritis being admitted with acute encephalopathy secondary to UTI with a case of sinusitis. Acute hypoxic respiratory failure -lowest pulse ox 72% in the ED -patient requires nasal cannula, does not use oxygen at home -VBG 7.36, 56, 63, 32 (may represent chronic CO2 retention, undiagnosed PEEWEE) -BNP WITHIN NORMAL LIMITS -CTA neg PE -No evidence of pneumonia, pulmonary edema, pleural effusion on diagnostic scans, mild expiratory wheeze on examination -incentive spirometer -duo nebs, supportive care, wean O2 as tolerated AMS/ Acute confusion/ encephalopathy -Likely secondary to UTI as UA is positive and patient has history of Pseudomonas back in January of 2024 -Continue cefepime -Patient indicates he thinks he has dementia but has not been formally diagnosed by neurologist, OT ordered for Titus -Fall prevention measures -Patient does not currently require one-to-one, no behavioral issues or agitation UTI (HX of pseudomonas) -Patient does not meet criteria for sepsis at this time -Patient is started on cefepime in the ED -History of Pseudomonas January 2024 -Patient received IV fluids -Blood cultures pending -Urine culture pending -Noted elevated CRP but normal lactic acid and procalcitonin level. Mild leukocytosis present with no bandemia Sinusitis -Patient is on cefepime for UTI -Landrum nasal spray ordered -Claritin daily -continue fluticasone Left elbow pain, chronic calciications with no acute findigns on xray -Tylenol 975 mgs X1, then 650 Q6 PRN -Avoid NSAIDS for now -Elevate Left arm as tolerated, nursing communication sent to notify if any warmth, swelling or redness develops. -Will hold tramadol due to confusion IDDMII -Sliding scale insulin -Diabetic diet BPH -Continue tamsulosin, finasteride -Bladder scan q.shift, straight cath if greater than 250 HTN -Med rec pending, BP stable -Continue amlodipine and metoprolol when med rec completed -Low Na diet GERD -Continue omperazole CAD/HLD -Continue Atorvastatin, LFTs stable -continue aspirin Anxiety/Depression -Hold xanax due to AMS -ONce med rec completed, continue lamotrigine, duloxetine -QTc 460 HX of CVA -No obvious defecits, pt reports issues with balance and ambulaton as well as memory -PT/OT referrals ordered -Continue Plavix DVT prophylaxis: Lovenox PPI prophylaxis: Omeprazole Med rec pending Full Code status Quality Stroke Does the patient have a stroke diagnosis?: No Reason for No Anti-thrombotic by Day Two: N/A - Med Ordered VTE Prior VTE?: No VTE Risk Level:: Medical - moderate - high VTE Device Contraindication: N/A - Device Ordered VTE Drug Contraindication: N/A - Med Ordered
[2024-12-26] MEDS: Enoxaparin Sodium 40 MG/0.4 ML SYRINGE SUBCUT (19:31)
[2024-12-26] MEDS: Furosemide 20 MG/2 ML VIAL IVPUSH (19:33)
--- NOTE | 2024-12-26 20:40 | PHA.MEDREC ---
Addendum entered by Debbie Mcqueen RPh 12/26/24 22:21: MED REC REVIEWED Original Note: Pharmacy Consult ? Medication Reconciliation Pharmacy has completed the medication reconciliation. Spoke to patient at beside to confirm med list. states patient no longer takes Alprazolam 0.25 mg (now on Clonazepam 0.5 mg), Naproxen 500 mg, Oxycodone 5 mg, Prazosin 1 mg, and Tramadol 50 mg. states patient takes Duloxetine 60 mg BID, however claims has Duloxetine 30 mg with Duloxetine 60 mg for a total dose of 90 mg daily, Lamotrigine 200 mg QAM and Lamotrigine 100 mg QPM. confirmed Lantus 50 units at bedtime and Humalog 15 units TID per sliding scale. Patient had all his morning medications today.
--- NOTE | 2024-12-26 20:41 | MHC.EDTECH ---
This pct assumed care of Patient at 1845 ,vitals taken ,bladder scan done ,blood sugar check ,RN aware of result ,Patient having sun butter and jelly sandwiches for snack .
[2024-12-26 21:03] LABS: Glucose, Whole Blood 168 mg/dL (60-115)
--- NOTE | 2024-12-26 21:08 | MHC.EDTECH ---
2100 blood sugar check ,DEE Monsivais aware of result ,Patient was moved into hospital bed for comfort ,Patient more alert than before ,Patient and daughter continue to be at bedside .
[2024-12-26] MEDS: Insulin Lispro 100 UNIT/ML 3 ML VIAL SUBCUT (21:18)
[2024-12-26] MEDS: Acetaminophen 325 MG TABLET 975 MG PO (21:19)
[2024-12-26] MEDS: Loratadine 10 MG TABLET PO (21:20)
[2024-12-26] MEDS: Sennosides 8.6 MG TABLET 17.2 MG PO (21:20)
[2024-12-27] VITALS (13 sets, daily range): BP systolic 114–143; BP diastolic 56–79; PULSE 79–115; RESP 17–21; TEMP 36.4–36.9; O2SAT 89–94; BMI 31.5; BMI 29.2
--- NOTE | 2024-12-27 00:32 | MHC.EDTECH ---
0000 rounding done ,vitals taken ,Patient sleeping ,no apparent distress noted ,Plan of care continue .
[2024-12-27] MEDS: cefEPime HCl/D5W 2 GM/50 ML PIGGYBACK IV ×2 (02:21→13:20)
[2024-12-27] MEDS: Albuterol/Iprat 2.5/0.5MG 3 ML AMPUL.NEB INHALE ×3 (05:29→21:01)
--- NOTE | 2024-12-27 06:06 | MHC.EDTECH ---
0600 rounding done ,vitals taken ,Patient slept most of the night ,Patient clean and dry ,Patient drank 120 ml water during the night ,and 50 ml urine empty from Male Pure wick ,All safety measure in Place .Call montano within Pt reach .
--- NOTE | 2024-12-27 07:00 | PC.NURSE ---
Addendum entered by Bryanna Noel RN 12/27/24 07:05: Pt is a 69 yo male with PMH CVA, UTI pseudomonas, IDDM II, BPH, hypertension, hyperlipidemia, [place] with PCI and stent x1, cervical spine surgery, osteoarthritis was sent to the emergency room for increasing confusion especially over the last 48 hours. Per patient's spouse patient was speaking to his grandchildren but they were not actually present. Head CT negative for acute findings. Left elbow negative for acute issues with chronic calcification in the elbow joint. Initially patient was confused and alert to self only in the ED. Patient did receive IV fluids and started on cefepime with a history of Pseudomonas in his urine. UA appears positive for UTI. Chest x-ray and CTA negative for evidence of pneumonia. Patient alert and cooperative. child monitor maintianed and NSR noted. Lungs with left base crackles and diffuse exp wheezes. Remains on o2 therapy. Abdomen soft, distended, non-tender with positive bowel sounds. Purewick intact and draining yellow urine. Positive pedal pulses with no edema. Pending bed assignment. Addendum entered by Bryanna Noel RN 12/27/24 07:04: CXR: Consider mild interstitial lung edema versus acute small airway inflammatory processes Original Note: Medical History Diabetic foot ulcer Fatty liver Asthma Vertebral artery stenosis QT prolongation PAD (peripheral artery disease) GERD (gastroesophageal reflux disease) Thyroid disease Diverticulitis Diverticulosis Dementia DJD of shoulder Insomnia Sleep apnea Depression Myocardial infarction Allergic rhinitis Cervicalgia 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 hyperplasia Hypertension COVID-19 Fall Hyperlipidemia Intracranial atherosclerosis BPH (benign prostatic hyperplasia) Coronary artery disease Diabetes Perforation of sigmoid colon due to diverticulitis High blood cholesterol Stroke Anxiety
[2024-12-27 07:03] LABS: MANUAL DIFF FLAG NO
[2024-12-27 07:17] LABS: Basophils Absolute Auto 0.1 X10*3/uL (0.0-0.2); Basophils Percent Auto 0.5 % (0-2); Eosinophils Absolute Auto 0.4 X10*3/uL (0.0-0.4); Eosinophils Percent Auto 4.3 % (0-4); Hematocrit 42.6 % (42.0-52.0); Hemoglobin 13.4 g/dl (14.0-18.0); Imm Gran Abs Auto 0.07 X10*3/uL (0.00-0.03); Imm Gran Pct Auto 0.8 % (0.0-0.4); Lymphocytes Absolute Auto 1.6 X10*3/uL (1.2-4.9); Lymphocytes Percent Auto 17.3 % (20-40); Mean Corpuscular HGB Conc 31.5 g/dl (31.0-36.0); Mean Corpuscular Hemoglobin 27.9 pg (27.0-33.0); Mean Corpuscular Volume 88.8 fL (80.0-98.0); Mean Platelet Volume 9.7 fL (9.4-12.4); Monocytes Absolute Auto 1.1 X10*3/uL (0.1-1.2); Monocytes Percent Auto 11.7 % (2-11); Neutrophils Percent Auto 65.4 % (45-73); Platelet Count 192 X10*3/uL (160-400); Red Cell Distribution Width 13.2 % (11.0-16.0); White Blood Count 9.2 X10*3/uL (4.8-10.8)
[2024-12-27 07:18] LABS: Glucose, Whole Blood 143 mg/dL (60-115)
[2024-12-27] MEDS: Omeprazole 20 MG CAPSULE.DR PO (07:25)
[2024-12-27 07:26] LABS: Alanine Aminotransferase 8 U/L (0-40); Albumin Level 3.9 g/dL (3.5-5.0); Alkaline Phosphatase 84 U/L (39-117); Anion Gap 16 (12-20); Aspartate Amino Transferase 17 U/L (5-37); Bilirubin Total 0.5 mg/dL (0.0-1.0); Blood Urea Nitrogen 10 mg/dL (9-16); Calcium 8.9 mg/dL (8.4-10.2); Carbon Dioxide 27 mmol/L (22-29); Chloride 104 mmol/L (96-108); Creatinine Clr Calc Pharmacy 99.5; Estimated Glomerular Filt Rate > 60; Glucose Random 139 mg/dL (60-115); Potassium 3.5 mmol/L (3.3-5.1); Sodium 143 mmol/L (135-145); Total Protein 7.2 g/dL (6.5-8.0)
[2024-12-27] MEDS: 0.9 % Sodium Chloride Flush 3 ML SYRINGE IVFLUSH ×3 (07:47→21:45)
[2024-12-27] MEDS: Loratadine 10 MG TABLET PO (07:47)
[2024-12-27] MEDS: Fluticasone Propionate Nasal 16 GM SPRAY 1 SPRAY NOSTRIL-B (08:45)
--- NOTE | 2024-12-27 11:07 | P.PNIM_ITS ---
Subjective Subjective Date of Service: 12/27/24 Interval History: seen and evaluated feels tired and has no energy on O2 supplement lower abd pain no other events Review of Systems Review of Systems: Yes all other systems are reviewed and are negative Physical Exam 2 Vital Signs: Vital Signs: Last Vital Signs Temp 97.5 F 12/27/24 06:56 Pulse 99 12/27/24 08:27 Resp 21 H 12/27/24 06:56 BP 143/79 H 12/27/24 08:27 Pulse Ox 92 12/27/24 08:27 O2 Del Method Nasal Cannula 12/27/24 06:56 O2 Flow Rate 3 12/27/24 06:56 BMI result Body Mass Index 31.5 Const: Other: Constitutional : Awake, interactive, weak, not in distress Neck : Normal inspection, Supple Cardiovascular : RRR, no JVP, no lower extremity edema Respiratory : good bilateral air entry, no crackles, wheezes or rhonchi Gastrointestinal: soft, lax, Normal bowel sounds, Non tender Skin : Warm, Dry Neurological : Alert & oriented x3, No focal deficit Objective Data Active Medications Acetaminophen (Acetaminophen 325 Mg Tablet) 650 mg PO Q6H PRN PRN Reason: Pain, Mild 1-3,fever,headache Albuterol/Ipratropium (Albuterol/Iprat 2.5/0.5mg 3 Ml Ampul.Neb) 3 ml INHALE Q4H PRN PRN Reason: Shortness of Breath/Wheezing Last Admin: 12/27/24 05:29 Dose: 3 ml Documented By: MAURA Calcium Carbonate (Calcium Carbonate 750 Mg Tab.Chew) 750 mg PO Q4H PRN PRN Reason: Heartburn Dextrose (Dextrose 50 % 25 Gm/50 Ml Syringe) 25 gm IVPUSH Q15M PRN; Protocol PRN Reason: per Hypoglycemia Standing Ord. Enoxaparin Sodium (Enoxaparin Sodium 40 Mg/0.4 Ml Syringe) 40 mg SUBCUT Q24H [facility] Last Admin: 12/26/24 19:31 Dose: 40 mg Documented By: ANNA-CREDLance Fluticasone Propionate (Fluticasone Propionate Nasal 16 Gm [place]) 1 spray NOSTRIL-B DAILY [facility] Last Admin: 12/27/24 08:45 Dose: 1 spray Documented By: SCIRPOS Glucose (Glucose Gel 15 Gm Gel..Gram.) 15 gm PO Q15M PRN; Protocol PRN Reason: per Hypoglycemia Standing Ord. Cefepime HCl (Maxipime) 2 gm in 50 mls @ 100 mls/hr IV Q12H [facility] Last Infusion: 12/27/24 03:02 Dose: Infused Documented By: PATRICIA Insulin Human Lispro (Insulin Lispro 100 Unit/Ml 3 Ml Vial) 0 unit SUBCUT QIDACHS [facility]; Protocol Last Admin: 12/27/24 07:26 Dose: Not Given Documented By: GIANNA Non-Admin Reason: No Insulin Coverage Loratadine (Loratadine 10 Mg Tablet) 10 mg PO DAILY [facility] Last Admin: 12/27/24 07:47 Dose: 10 mg Documented By: GIANNA Magnesium Hydroxide (Milk Of Magnesia 30 Ml Oral.Susp) 30 ml PO DAILY PRN PRN Reason: Constipation Melatonin (Melatonin 3 Mg Tablet) 6 mg PO BEDTIME PRN PRN Reason: Insomnia Omeprazole (Omeprazole 20 Mg Capsule.Dr) 20 mg PO DAILY@0630 [facility] Last Admin: 12/27/24 07:25 Dose: 20 mg Documented By: GIANNA Ondansetron HCl (Ondansetron Hcl 4 Mg/2 Ml Vial) 4 mg IVPUSH Q8H PRN PRN Reason: Nausea and Vomiting Polyethylene Glycol (Polyethylene Glycol 3350 17 Gm Powd.Pack) 17 gm PO DAILY PRN PRN Reason: Constipation Senna (Sennosides 8.6 Mg Tablet) 17.2 mg PO BEDTIME [facility] Last Admin: 12/26/24 21:20 Dose: 8.6 mg Documented By: PATRICIA Sodium Chloride (0.9 % Sodium Chloride Flush 3 Ml Syringe) 3 ml IVFLUSH QSHIFT [facility] Last Admin: 12/27/24 07:47 Dose: 3 ml Documented By: GIANNA Sodium Chloride (Sodium Chloride 0.65 % Nasal 44 Ml Sprbtl) 1 spray NOSTRIL-B Q1H PRN PRN Reason: Congestion Labs 12/27/24 06:58 12/27/24 06:58 Labs: Laboratory Results - last 24 hr 12/26/24 12/26/24 12/26/24 13:26 13:31 13:44 MCV 86.9 MCH 28.3 MCHC 32.5 RDW 13.2 Plt Count 201 MPV 9.6 Immature Gran % (Auto) 0.9 H Neut % (Auto) 68.5 Lymph % (Auto) 16.1 L [place] % (Auto) 11.8 H Eos % (Auto) 2.3 Baso % (Auto) 0.4 Lymph # (Auto) 1.8 [place] # (Auto) 1.3 H Eos # (Auto) 0.3 Baso # (Auto) 0.1 Abs Immat Gran (auto) 0.10 H Absolute Neuts (auto) 7.7 Absolute Nucleated RBC 0.000 Nucleated RBC % (auto) 0.0 VBG pH 7.36 VBG pCO2 56 VBG pO2 63 VBG HCO3 32 H VBG O2 Saturation 86.0 VBG Base Excess 5.3 Anion Gap 17 Estim Creat Clear Calc 86.4 Estimated GFR > 60 POC Glucose Random Glucose 193 H Lactic Acid 1.7 Calcium 9.8 Magnesium 2.2 Total Bilirubin 0.5 Direct Bilirubin 0.2 AST 16 ALT 13 Alkaline Phosphatase 93 Total Creatine Kinase 50 Troponin I High Sens 4.6 C-Reactive Protein 33.70 H B-Natriuretic Peptide 13 Total Protein 7.9 Albumin 4.4 Lipase 23 Procalcitonin 0.09 TSH 1.60 Urine Color Urine Appearance Urine pH Ur Specific [place] Urine Protein Urine Glucose (UA) Urine Ketones Urine Blood Urine Nitrite Ur Leukocyte Esterase Urine RBC Urine WBC Urine WBC Clumps Ur Squamous Epith Cells Urine Bacteria Hyaline Casts Influenza Type A (PCR) NEGATIVE Influenza Type B (PCR) NEGATIVE RSV RNA Qual (PCR) NEGATIVE SARS-CoV-2 RNA (RT-PCR) NEGATIVE 12/26/24 12/26/24 12/26/24 13:53 15:43 20:39 MCV MCH MCHC RDW Plt Count MPV Immature Gran % (Auto) Neut % (Auto) Lymph % (Auto) [place] % (Auto) Eos % (Auto) Baso % (Auto) Lymph # (Auto) [place] # (Auto) Eos # (Auto) Baso # (Auto) Abs Immat Gran (auto) Absolute Neuts (auto) Absolute Nucleated RBC Nucleated RBC % (auto) VBG pH VBG pCO2 VBG pO2 VBG HCO3 VBG O2 Saturation VBG Base Excess Anion Gap Estim Creat Clear Calc Estimated GFR POC Glucose 147 H 168 H Random Glucose Lactic Acid Calcium Magnesium Total Bilirubin Direct Bilirubin AST ALT Alkaline Phosphatase Total Creatine Kinase Troponin I High Sens C-Reactive Protein B-Natriuretic Peptide Total Protein Albumin Lipase Procalcitonin TSH Urine Color Yellow Urine Appearance Clear Urine pH 6.0 Ur Specific [place] >= 1.030 H Urine Protein Trace Urine Glucose (UA) >=1000 H Urine Ketones Trace Urine Blood Trace H Urine Nitrite Positive H Ur Leukocyte Esterase Small (1+) H Urine RBC 0-2 Urine WBC 11-20 Urine WBC Clumps Present Ur Squamous Epith Cells 0-2 Urine Bacteria 3+ Hyaline Casts 0-2 Influenza Type A (PCR) Influenza Type B (PCR) RSV RNA Qual (PCR) SARS-CoV-2 RNA (RT-PCR) 12/27/24 12/27/24 06:58 07:14 MCV 88.8 MCH 27.9 MCHC 31.5 RDW 13.2 Plt Count 192 MPV 9.7 Immature Gran % (Auto) 0.8 H Neut % (Auto) 65.4 Lymph % (Auto) 17.3 L [place] % (Auto) 11.7 H Eos % (Auto) 4.3 H Baso % (Auto) 0.5 Lymph # (Auto) 1.6 [place] # (Auto) 1.1 Eos # (Auto) 0.4 Baso # (Auto) 0.1 Abs Immat Gran (auto) 0.07 H Absolute Neuts (auto) 6.0 Absolute Nucleated RBC 0.000 Nucleated RBC % (auto) 0.0 VBG pH VBG pCO2 VBG pO2 VBG HCO3 VBG O2 Saturation VBG Base Excess Anion Gap 16 Estim Creat Clear Calc 99.5 Estimated GFR > 60 POC Glucose 143 H Random Glucose 139 H Lactic Acid Calcium 8.9 D Magnesium Total Bilirubin 0.5 Direct Bilirubin AST 17 ALT 8 Alkaline Phosphatase 84 Total Creatine Kinase Troponin I High Sens C-Reactive Protein B-Natriuretic Peptide Total Protein 7.2 Albumin 3.9 Lipase Procalcitonin TSH Urine Color Urine Appearance Urine pH Ur Specific [place] Urine Protein Urine Glucose (UA) Urine Ketones Urine Blood Urine Nitrite Ur Leukocyte Esterase Urine RBC Urine WBC Urine WBC Clumps Ur Squamous Epith Cells Urine Bacteria Hyaline Casts Influenza Type A (PCR) Influenza Type B (PCR) RSV RNA Qual (PCR) SARS-CoV-2 RNA (RT-PCR) Assessment and Plan (1) Hypoxia: Status: Acute (2) Acute confusion: Status: Acute (3) Acute UTI: Status: Acute Plan Pt is a 69 yo male with PMH CVA, UTI pseudomonas, IDDM II, BPH, hypertension, hyperlipidemia, [place] with PCI and stent x1, cervical spine surgery, osteoarthritis being admitted with acute encephalopathy secondary to UTI with a case of sinusitis. Acute hypoxic respiratory failure 2/2 reactive airway disease or COPD w exacerbation chronic retainer of CO2 CTA neg PE incentive spirometer duo nebs, supportive care wean O2 as tolerated acute toxic metabolic encephalopathy secondary to UTI Continue cefepime OT ordered for [place] Fall prevention measures UTI (HX of pseudomonas) started on cefepime given history of Pseudomonas January 2024 Blood cultures pending Urine culture pending Sinusitis [place] nasal spray ordered Claritin daily continue fluticasone Left elbow pain chronic calciications with no acute findigns on xray Tylenol 650 Q6 PRN Avoid NSAIDS for now Elevate Left arm as tolerated, nursing communication sent to notify if any warmth, swelling or redness develops. hold tramadol due to confusion IDDMII Sliding scale insulin Diabetic diet BPH Continue tamsulosin, finasteride Bladder scan q.shift, straight cath if greater than 250 HTN Continue amlodipine and metoprolol when med rec completed Low Na diet GERD Continue omperazole CAD/HLD Continue Atorvastatin, LFTs stable continue aspirin Anxiety/Depression continue lamotrigine, duloxetine HX of CVA No obvious defecits, pt reports issues with balance and ambulaton as well as memory PT/OT referrals ordered Continue Plavix DVT prophylaxis: Lovenox PPI prophylaxis: Omeprazole Full Code status The patient will need overnight stay for treatment of encephalopathy and Urine infection with MDR Hx pending final cultures Quality Stroke Does the patient have a stroke diagnosis?: No Reason for No Anti-thrombotic by Day Two: N/A - Med Ordered VTE Prior VTE?: No VTE Risk Level:: Medical - moderate - high VTE Device Contraindication: N/A - Device Ordered VTE Drug Contraindication: N/A - Med Ordered
[2024-12-27 12:01] LABS: Glucose, Whole Blood 175 mg/dL (60-115)
[2024-12-27] MEDS: Insulin Lispro 100 UNIT/ML 3 ML VIAL SUBCUT ×3 (12:53→21:43)
[2024-12-27] MEDS: DULoxetine HCl 60 MG CAPSULE.DR PO ×2 (12:54→21:44)
[2024-12-27] MEDS: Finasteride 5 MG TABLET PO (12:54)
[2024-12-27] MEDS: lamoTRIgine 100 MG TABLET 200 MG PO (12:54)
[2024-12-27] MEDS: Metoprolol Tartrate 50 MG TABLET PO ×2 (12:54→21:45)
[2024-12-27] MEDS: amLODIPine Besylate 10 MG TABLET PO (12:54)
[2024-12-27] MEDS: Gabapentin 100 MG CAPSULE 200 MG PO ×2 (14:05→21:44)
--- NOTE | 2024-12-27 16:12 | MHC.CM.PN ---
Addendum entered by Sola Love 12/28/24 15:35: PT IS AWARE STR WAS RECOMMENDED, HOWEVER REPORTS HE IS UNSURE IF HE IS WILLING TO GO. HE REPORTS HE WILL DISCUSS IT WITH HIS AND MAKE A DECISION BY TOMORROW Original Note: PT REPORTS HE LIVES WITH HIS AND CAT HE IS INDEPENDENT WITH SELF CARE AND WAS USING A CANE, BUT FEELS HE NEEDS A WALKER HCP AND POA ON FILE PCP: FAUZIA BRYAN IMM DELIVERED DCP: HOME VIA PRIVATE TRANSPORT
[2024-12-27 16:32] LABS: Glucose, Whole Blood 173 mg/dL (60-115)
[2024-12-27] MEDS: Enoxaparin Sodium 40 MG/0.4 ML SYRINGE SUBCUT (18:41)
[2024-12-27 20:35] LABS: Glucose, Whole Blood 187 mg/dL (60-115)
[2024-12-27] MEDS: Insulin Glargine,Hum.rec.anlog 100 UNIT/ML 10 ML VIAL 25 UNIT SUBCUT (21:43)
[2024-12-27] MEDS: lamoTRIgine 100 MG TABLET PO (21:44)
[2024-12-27] MEDS: Benzonatate 100 MG CAPSULE 200 MG PO (21:44)
[2024-12-27] MEDS: Sennosides 8.6 MG TABLET 17.2 MG PO (21:44)
[2024-12-27] MEDS: Melatonin 3 MG TABLET 6 MG PO (21:44)
[2024-12-27] MEDS: Atorvastatin Calcium 80 MG TABLET PO (21:45)
[2024-12-27] MEDS: Tamsulosin HCL 0.4 MG CAPSULE 0.8 MG PO (21:45)
[2024-12-28] VITALS (8 sets, daily range): BP systolic 115–157; BP diastolic 67–80; PULSE 71–100; RESP 17–20; TEMP 36–37.1; O2SAT 91–94
[2024-12-28] MEDS: cefEPime HCl/D5W 2 GM/50 ML PIGGYBACK IV ×2 (03:03→15:29)
[2024-12-28] MEDS: Pantoprazole Sodium 20 MG TABLET.DR PO (06:23)
[2024-12-28 06:58] LABS: MANUAL DIFF FLAG NO
[2024-12-28 07:03] LABS: Basophils Absolute Auto 0.1 X10*3/uL (0.0-0.2); Basophils Percent Auto 0.7 % (0-2); Eosinophils Absolute Auto 0.4 X10*3/uL (0.0-0.4); Eosinophils Percent Auto 5.1 % (0-4); Hematocrit 41.3 % (42.0-52.0); Hemoglobin 13.2 g/dl (14.0-18.0); Imm Gran Pct Auto 1.5 % (0.0-0.4); Lymphocytes Absolute Auto 1.9 X10*3/uL (1.2-4.9); Lymphocytes Percent Auto 27.6 % (20-40); Mean Corpuscular Hemoglobin 28.2 pg (27.0-33.0); Mean Corpuscular Volume 88.2 fL (80.0-98.0); Mean Platelet Volume 9.6 fL (9.4-12.4); Monocytes Absolute Auto 0.8 X10*3/uL (0.1-1.2); Monocytes Percent Auto 11.8 % (2-11); Neutrophils Absolute Auto 3.6 x10*3/uL (2.0-8.3); Neutrophils Percent Auto 53.3 % (45-73); Platelet Count 194 X10*3/uL (160-400); Red Blood Count 4.68 X10*6/uL (4.60-5.80); Red Cell Distribution Width 13.2 % (11.0-16.0); White Blood Count 6.8 X10*3/uL (4.8-10.8)
[2024-12-28 07:20] LABS: Anion Gap 12 (12-20); Blood Urea Nitrogen 11 mg/dL (9-16); Calcium 8.8 mg/dL (8.4-10.2); Carbon Dioxide 30 mmol/L (22-29); Chloride 104 mmol/L (96-108); Creatinine Clr Calc Pharmacy 109.5; Estimated Glomerular Filt Rate > 60; Glucose Random 135 mg/dL (60-115); Potassium 3.5 mmol/L (3.3-5.1); Sodium 142 mmol/L (135-145)
[2024-12-28 07:49] LABS: Glucose, Whole Blood 147 mg/dL (60-115)
[2024-12-28] MEDS: Cholecalciferol (Vitamin D3) 25 MCG TABLET 50 MCG PO (08:42)
[2024-12-28] MEDS: Gabapentin 100 MG CAPSULE 200 MG PO ×3 (08:42→20:47)
[2024-12-28] MEDS: DULoxetine HCl 60 MG CAPSULE.DR PO ×2 (08:42→20:47)
[2024-12-28] MEDS: Metoprolol Tartrate 50 MG TABLET PO ×2 (08:43→20:46)
[2024-12-28] MEDS: Clopidogrel Bisulfate 75 MG TABLET PO (08:43)
[2024-12-28] MEDS: amLODIPine Besylate 10 MG TABLET PO (08:43)
[2024-12-28] MEDS: Loratadine 10 MG TABLET PO (08:43)
[2024-12-28] MEDS: Aspirin Enteric Coated 81 MG TABLET.DR PO (08:43)
[2024-12-28] MEDS: lamoTRIgine 100 MG TABLET 200 MG PO (08:43)
[2024-12-28] MEDS: 0.9 % Sodium Chloride Flush 3 ML SYRINGE IVFLUSH ×3 (08:44→20:49)
[2024-12-28] MEDS: Finasteride 5 MG TABLET PO (08:44)
--- NOTE | 2024-12-28 10:37 | P.PNIM_ITS ---
Subjective Subjective Date of Service: 12/28/24 Interval History: seen and evaluated feels better but reporting cough and wheezing on O2 supplement lower abd pain improving no other events Review of Systems Review of Systems: Yes all other systems are reviewed and are negative Physical Exam 2 Vital Signs: Vital Signs: Last Vital Signs Temp 97.4 F 12/28/24 07:13 Pulse 85 12/28/24 07:13 Resp 18 12/28/24 07:13 BP 125/73 12/28/24 07:13 Pulse Ox 93 12/28/24 07:13 O2 Del Method Nasal Cannula 12/28/24 07:13 O2 Flow Rate 2 12/28/24 07:13 BMI result Body Mass Index 29.2 Const: Other: Constitutional : Awake, interactive, weak, not in distress Neck : Normal inspection, Supple Cardiovascular : RRR, no JVP, no lower extremity edema Respiratory : fair bilateral air entry, no crackles, bilateral wheezes, On O2 supplement Gastrointestinal: soft, lax, Normal bowel sounds, Non tender Skin : Warm, Dry Neurological : Alert & oriented x3, No focal deficit Objective Data Active Medications Acetaminophen (Acetaminophen 325 Mg Tablet) 650 mg PO Q6H PRN PRN Reason: Pain, Mild 1-3,fever,headache Albuterol Sulfate (Albuterol Sulfate 90 Mcg 8 Gm Inhaler) 2 puff INHALE BID PRN PRN Reason: Wheezing Albuterol/Ipratropium (Albuterol/Iprat 2.5/0.5mg 3 Ml Ampul.Neb) 3 ml INHALE Q4H PRN PRN Reason: Shortness of Breath/Wheezing Last Admin: 12/27/24 05:29 Dose: 3 ml Documented By: MAURA Albuterol/Ipratropium (Albuterol/Iprat 2.5/0.5mg 3 Ml Ampul.Neb) 3 ml INHALE RQ4H WHILE AWAKE [facility] Last Admin: 12/28/24 08:16 Dose: Not Given Documented By: CHRIS Non-Admin Reason: Patient Refused Amlodipine Besylate (Amlodipine Besylate 10 Mg Tablet) 10 mg PO DAILY [facility]; Protocol Last Admin: 12/28/24 08:43 Dose: 10 mg Documented By: CRISTIAN Aspirin (Aspirin Enteric Coated 81 Mg Tablet.) 81 mg PO DAILY [facility] Last Admin: 12/28/24 08:43 Dose: 81 mg Documented By: CRISTIAN Atorvastatin Calcium (Atorvastatin Calcium 80 Mg Tablet) 80 mg PO BEDTIME [facility] Last Admin: 12/27/24 21:45 Dose: 80 mg Documented By: LYSLoretta Benzonatate (Benzonatate 100 Mg Capsule) 200 mg PO TID PRN PRN Reason: Cough Last Admin: 12/27/24 21:44 Dose: 200 mg Documented By: DG Calcium Carbonate (Calcium Carbonate 750 Mg Tab.Chew) 750 mg PO Q4H PRN PRN Reason: Heartburn Clonazepam (Clonazepam 0.5 Mg Tablet) 0.5 mg PO TID PRN PRN Reason: anxiety/restlessness Clopidogrel Bisulfate (Clopidogrel Bisulfate 75 Mg Tablet) 75 mg PO DAILY [facility] Last Admin: 12/28/24 08:43 Dose: 75 mg Documented By: CRISTIAN Dextrose (Dextrose 50 % 25 Gm/50 Ml Syringe) 25 gm IVPUSH Q15M PRN; Protocol PRN Reason: per Hypoglycemia Standing Ord. Duloxetine HCl (Duloxetine Hcl 60 Mg Capsule.Dr) 60 mg PO BID [facility] Last Admin: 12/28/24 08:42 Dose: 60 mg Documented By: CRISTIAN Enoxaparin Sodium (Enoxaparin Sodium 40 Mg/0.4 Ml Syringe) 40 mg SUBCUT Q24H [facility] Last Admin: 12/27/24 18:41 Dose: 40 mg Documented By: LUKE Finasteride (Finasteride 5 Mg Tablet) 5 mg PO DAILY [facility] Last Admin: 12/28/24 08:44 Dose: 5 mg Documented By: CRISTIAN Fluticasone Propionate (Fluticasone Propionate Nasal 16 Gm [place]) 1 spray NOSTRIL-B DAILY [facility] Last Admin: 12/27/24 08:45 Dose: 1 spray Documented By: LATISHARPJG Gabapentin (Gabapentin 100 Mg Capsule) 200 mg PO TID [facility] Last Admin: 12/28/24 08:42 Dose: 200 mg Documented By: CRISTIAN Glucose (Glucose Gel 15 Gm Gel..Gram.) 15 gm PO Q15M PRN; Protocol PRN Reason: per Hypoglycemia Standing Ord. Cefepime HCl (Maxipime) 2 gm in 50 mls @ 100 mls/hr IV Q12H [facility] Last Infusion: 12/28/24 03:45 Dose: Infused Documented By: DG Insulin Glargine (Insulin Glargine,Hum.Rec.Anlog 100 Unit/Ml 10 Ml Vial) 25 unit SUBCUT BEDTIME [facility] Last Admin: 12/27/24 21:43 Dose: 25 unit Documented By: DG Insulin Human Lispro (Insulin Lispro 100 Unit/Ml 3 Ml Vial) 0 unit SUBCUT QIDACHS [facility]; Protocol Last Admin: 12/28/24 07:54 Dose: Not Given Documented By: CRISTIAN Non-Admin Reason: No Insulin Coverage Lamotrigine (Lamotrigine 100 Mg Tablet) 100 mg PO BEDTIME [facility] Last Admin: 12/27/24 21:44 Dose: 100 mg Documented By: DG Lamotrigine (Lamotrigine 100 Mg Tablet) 200 mg PO DAILY [facility] Last Admin: 12/28/24 08:43 Dose: 200 mg Documented By: CRISTIAN Loratadine (Loratadine 10 Mg Tablet) 10 mg PO DAILY [facility] Last Admin: 12/28/24 08:43 Dose: 10 mg Documented By: CRISTIAN Magnesium Hydroxide (Milk Of Magnesia 30 Ml Oral.Susp) 30 ml PO DAILY PRN PRN Reason: Constipation Melatonin (Melatonin 3 Mg Tablet) 6 mg PO BEDTIME PRN PRN Reason: Insomnia Last Admin: 12/27/24 21:44 Dose: 6 mg Documented By: DG Metoprolol Tartrate (Metoprolol Tartrate 50 Mg Tablet) 50 mg PO BID [facility]; Protocol Last Admin: 12/28/24 08:43 Dose: 50 mg Documented By: CRISTIAN Mirtazapine (Mirtazapine 15 Mg Tablet) 15 mg PO BEDTIME PRN PRN Reason: Sleep Nitroglycerin (Nitroglycerin 0.4 Mg Tab.Subl) 0.4 mg SUBLINGUAL Q5M PRN PRN Reason: Chest Pain Ondansetron HCl (Ondansetron Hcl 4 Mg/2 Ml Vial) 4 mg IVPUSH Q8H PRN PRN Reason: Nausea and Vomiting Pantoprazole Sodium (Pantoprazole Sodium 20 Mg Tablet.Dr) 20 mg PO DAILY@0630 [facility] Last Admin: 12/28/24 06:23 Dose: 20 mg Documented By: DG Polyethylene Glycol (Polyethylene Glycol 3350 17 Gm Powd.Pack) 17 gm PO DAILY PRN PRN Reason: Constipation Promethazine HCl (Promethazine Hcl 25 Mg Tablet) 25 mg PO Q8H PRN PRN Reason: nausea Senna (Sennosides 8.6 Mg Tablet) 17.2 mg PO BEDTIME [facility] Last Admin: 12/27/24 21:44 Dose: 17.2 mg Documented By: DG Sodium Chloride (0.9 % Sodium Chloride Flush 3 Ml Syringe) 3 ml IVFLUSH QSHIFT [facility] Last Admin: 12/28/24 08:44 Dose: 3 ml Documented By: CRISTIAN Sodium Chloride (Sodium Chloride 0.65 % Nasal 44 Ml Sprbtl) 1 spray NOSTRIL-B Q1H PRN PRN Reason: Congestion Tamsulosin HCl (Tamsulosin Hcl 0.4 Mg Capsule) 0.8 mg PO BEDTIME [facility] Last Admin: 12/27/24 21:45 Dose: 0.8 mg Documented By: DG Vitamin D (Cholecalciferol (Vitamin D3) 25 Mcg Tablet) 50 mcg PO DAILY [facility] Last Admin: 12/28/24 08:42 Dose: 50 mcg Documented By: CRISTIAN Labs 12/28/24 06:27 12/28/24 06:27 Labs: Laboratory Results - last 24 hr 12/27/24 12/27/24 12/27/24 11:58 16:09 20:13 MCV MCH MCHC RDW Plt Count MPV Immature Gran % (Auto) Neut % (Auto) Lymph % (Auto) [place] % (Auto) Eos % (Auto) Baso % (Auto) Lymph # (Auto) [place] # (Auto) Eos # (Auto) Baso # (Auto) Abs Immat Gran (auto) Absolute Neuts (auto) Absolute Nucleated RBC Nucleated RBC % (auto) Anion Gap Estim Creat Clear Calc Estimated GFR POC Glucose 175 H 173 H 187 H Random Glucose Calcium 12/28/24 12/28/24 06:27 07:16 MCV 88.2 MCH 28.2 MCHC 32.0 RDW 13.2 Plt Count 194 MPV 9.6 Immature Gran % (Auto) 1.5 H Neut % (Auto) 53.3 Lymph % (Auto) 27.6 [place] % (Auto) 11.8 H Eos % (Auto) 5.1 H Baso % (Auto) 0.7 Lymph # (Auto) 1.9 [place] # (Auto) 0.8 Eos # (Auto) 0.4 Baso # (Auto) 0.1 Abs Immat Gran (auto) 0.10 H Absolute Neuts (auto) 3.6 Absolute Nucleated RBC 0.000 Nucleated RBC % (auto) 0.0 Anion Gap 12 Estim Creat Clear Calc 109.5 Estimated GFR > 60 POC Glucose 147 H Random Glucose 135 H Calcium 8.8 Microbiology Microbiology Results: Microbiology 12/26/24 Unknown Urine Culture - Final Urine clean catch - Clean Catch Midstream Pseudomonas aeruginosa 12/26/24 13:31 Blood Culture - Preliminary Blood - Venous No growth after 24 hours. 12/26/24 13:31 Blood Culture - Preliminary Blood - Venous No growth after 24 hours. Assessment and Plan (1) Hypoxia: Status: Acute (2) Acute confusion: Status: Acute (3) Acute UTI: Status: Acute (4) Pseudomonas infection: Status: Acute Plan Pt is a 69 yo male with PMH CVA, UTI pseudomonas, IDDM II, BPH, hypertension, hyperlipidemia, [place] with PCI and stent x1, cervical spine surgery, osteoarthritis being admitted with acute encephalopathy secondary to UTI with a case of sinusitis. Acute hypoxic respiratory failure 2/2 reactive airway disease or COPD w exacerbation chronic retainer of CO2 CTA neg PE incentive spirometer duo nebs, steroids wean O2 as tolerated acute toxic metabolic encephalopathy secondary to UTI Continue cefepime OT did MOCA: scored 16/30 , to be followed as outpatient. Fall prevention measures UTI Cx growing pseudomonas started on cefepime given history of MDR Pseudomonas January 2024 Blood cultures pending get ID eval and rec. Acute urine retention 2/2 BPH Byrd placed Tamsulosine and Finasterid Sinusitis [place] nasal spray ordered Claritin daily continue fluticasone Left elbow pain chronic calciications with no acute findigns on xray Tylenol 650 Q6 PRN Avoid NSAIDS for now Elevate Left arm as tolerated, nursing communication sent to notify if any warmth, swelling or redness develops. hold tramadol due to confusion IDDMII Sliding scale insulin Diabetic diet HTN Continue amlodipine and metoprolol when med rec completed Low Na diet GERD Continue omperazole CAD/HLD Continue Atorvastatin, LFTs stable continue aspirin Anxiety/Depression continue lamotrigine, duloxetine HX of CVA No obvious defecits, pt reports issues with balance and ambulaton as well as memory PT/OT referrals ordered Continue Plavix DVT prophylaxis: Lovenox PPI prophylaxis: Omeprazole Full Code status The patient will need overnight stay for treatment of encephalopathy and Urine infection with MDR Hx pending final cultures Quality Stroke Does the patient have a stroke diagnosis?: No Reason for No Anti-thrombotic by Day Two: N/A - Med Ordered VTE Prior VTE?: No VTE Risk Level:: Medical - moderate - high VTE Device Contraindication: N/A - Device Ordered VTE Drug Contraindication: N/A - Med Ordered
[2024-12-28 11:36] LABS: Glucose, Whole Blood 182 mg/dL (60-115)
[2024-12-28] MEDS: Fluticasone Propionate Nasal 16 GM SPRAY 1 SPRAY NOSTRIL-B (12:00)
[2024-12-28] MEDS: predniSONE 20 MG TABLET 40 MG PO (12:00)
[2024-12-28] MEDS: guaiFENesin LA 600 MG TAB.ER.12H PO ×2 (12:00→20:46)
[2024-12-28] MEDS: Insulin Lispro 100 UNIT/ML 3 ML VIAL SUBCUT ×3 (12:01→20:48)
[2024-12-28] MEDS: Albuterol/Iprat 2.5/0.5MG 3 ML AMPUL.NEB INHALE ×2 (15:43→19:58)
--- NOTE | 2024-12-28 16:15 | PC.NURSE ---
Pt and HCP Nelia Figueroa given update on pt status . Informed her awaiting and ID consult and PT has recommended [facility] . Assured her pt is not ready for discharge at this time
[2024-12-28 16:21] LABS: Glucose, Whole Blood 263 mg/dL (60-115)
[2024-12-28] MEDS: Enoxaparin Sodium 40 MG/0.4 ML SYRINGE SUBCUT (16:52)
--- NOTE | 2024-12-28 18:30 | PC.NURSE ---
Pts Sister Magdalena Figueroa [phone] updated on pts status.
[2024-12-28 20:17] LABS: Glucose, Whole Blood 232 mg/dL (60-115)
[2024-12-28] MEDS: Melatonin 3 MG TABLET 6 MG PO (20:46)
[2024-12-28] MEDS: Sennosides 8.6 MG TABLET 17.2 MG PO (20:46)
[2024-12-28] MEDS: Tamsulosin HCL 0.4 MG CAPSULE 0.8 MG PO (20:46)
[2024-12-28] MEDS: Benzonatate 100 MG CAPSULE 200 MG PO (20:47)
[2024-12-28] MEDS: lamoTRIgine 100 MG TABLET PO (20:47)
[2024-12-28] MEDS: Atorvastatin Calcium 80 MG TABLET PO (20:47)
[2024-12-28] MEDS: Insulin Glargine,Hum.rec.anlog 100 UNIT/ML 10 ML VIAL 25 UNIT SUBCUT (20:48)
--- NOTE | 2024-12-28 23:34 | P.CNID_ITS ---
History of Present Illness Data of Consult Service Date: 12/28/24 Requesting physician: Parker Baker Primary Care Provider: DULCE De Paz HPI Reason for consult: MDR Pseudomonas UTI He presents with confusion. He reports burning for one week and has not been on antibiotics. He has also frequency and only urinates small amounts. He has no fever or hematuria and hasnt seen Urology. Review of Systems 2 Review of Systems: Yes all other systems are reviewed and are negative PMFSH Past Medical History Medical History Diabetic foot ulcer Fatty liver Asthma Vertebral artery stenosis QT prolongation PAD (peripheral artery disease) GERD (gastroesophageal reflux disease) Thyroid disease Diverticulitis Diverticulosis Dementia DJD of shoulder Insomnia Sleep apnea Depression Myocardial infarction Allergic rhinitis Cervicalgia 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 hyperplasia Hypertension COVID-19 Fall Hyperlipidemia Intracranial atherosclerosis BPH (benign prostatic hyperplasia) Coronary artery disease Diabetes Perforation of sigmoid colon due to diverticulitis High blood cholesterol Stroke Anxiety Family History Family History Other Coronary artery disease Diabetes Family history: reviewed and not pertinent Surgical History Surgical History S/P peripheral artery angioplasty H/O colonoscopy Hx of tonsillectomy History of shoulder surgery Hx of cervical spine surgery History of esophagogastroduodenoscopy (EGD) H/O neck surgery History of heart artery stent Social History Social History Household Members: Spouse Housing: Apartment Do you presently have visiting nurse or other home services: No Unable to assess alcohol history related to: Unknown Alcohol intake: former Year quit: 2006 Comment: heels elevated with pillows Patient Tobacco Use Status: Never used Tobacco Advance Directives Date on File: 07/15/20 service: No Current occupational status: unemployed Travel History Ebola Risk: Travel/Contact With Anyone From Affected Area/s: No Has Patient Experienced Ebola Symptoms: No Meds Allergies Allergy/AdvReac Type Severity Reaction Status Date / Time lisinopril [LISINOPRIL] Allergy Unknown Cough Verified 12/26/24 12:59 pregabalin [From [facility]] Allergy Unknown Weakness Verified 12/26/24 12:59 divalproex sodium Allergy Unconscious Verified 12/26/24 12:59 [From Depakote] Active Medications: Current Medications Acetaminophen (Acetaminophen 325 Mg Tablet) 650 mg PO Q6H PRN PRN Reason: Pain, Mild 1-3,fever,headache Albuterol Sulfate (Albuterol Sulfate 90 Mcg 8 Gm Inhaler) 2 puff INHALE BID PRN PRN Reason: Wheezing Albuterol/Ipratropium (Albuterol/Iprat 2.5/0.5mg 3 Ml Ampul.Neb) 3 ml INHALE Q4H PRN PRN Reason: Shortness of Breath/Wheezing Last Admin: 12/27/24 05:29 Dose: 3 ml Albuterol/Ipratropium (Albuterol/Iprat 2.5/0.5mg 3 Ml Ampul.Neb) 3 ml INHALE RQ4H WHILE AWAKE [facility] Last Admin: 12/28/24 19:58 Dose: 3 ml Amlodipine Besylate (Amlodipine Besylate 10 Mg Tablet) 10 mg PO DAILY [facility]; Protocol Last Admin: 12/28/24 08:43 Dose: 10 mg Aspirin (Aspirin Enteric Coated 81 Mg Tablet.) 81 mg PO DAILY [facility] Last Admin: 12/28/24 08:43 Dose: 81 mg Atorvastatin Calcium (Atorvastatin Calcium 80 Mg Tablet) 80 mg PO BEDTIME [facility] Last Admin: 12/28/24 20:47 Dose: 80 mg Benzonatate (Benzonatate 100 Mg Capsule) 200 mg PO TID PRN PRN Reason: Cough Last Admin: 12/28/24 20:47 Dose: 200 mg Calcium Carbonate (Calcium Carbonate 750 Mg Tab.Chew) 750 mg PO Q4H PRN PRN Reason: Heartburn Clonazepam (Clonazepam 0.5 Mg Tablet) 0.5 mg PO TID PRN PRN Reason: anxiety/restlessness Clopidogrel Bisulfate (Clopidogrel Bisulfate 75 Mg Tablet) 75 mg PO DAILY [facility] Last Admin: 12/28/24 08:43 Dose: 75 mg Dextrose (Dextrose 50 % 25 Gm/50 Ml Syringe) 25 gm IVPUSH Q15M PRN; Protocol PRN Reason: per Hypoglycemia Standing Ord. Duloxetine HCl (Duloxetine Hcl 60 Mg Capsule.) 60 mg PO BID [facility] Last Admin: 12/28/24 20:47 Dose: 60 mg Enoxaparin Sodium (Enoxaparin Sodium 40 Mg/0.4 Ml Syringe) 40 mg SUBCUT Q24H [facility] Last Admin: 12/28/24 16:52 Dose: 40 mg Finasteride (Finasteride 5 Mg Tablet) 5 mg PO DAILY [facility] Last Admin: 12/28/24 08:44 Dose: 5 mg Fluticasone Propionate (Fluticasone Propionate Nasal 16 Gm [place]) 1 spray NOSTRIL-B DAILY [facility] Last Admin: 12/28/24 12:00 Dose: 1 spray Gabapentin (Gabapentin 100 Mg Capsule) 200 mg PO TID [facility] Last Admin: 12/28/24 20:47 Dose: 200 mg Glucose (Glucose Gel 15 Gm Gel..Gram.) 15 gm PO Q15M PRN; Protocol PRN Reason: per Hypoglycemia Standing Ord. Guaifenesin (Guaifenesin La 600 Mg Tab.Er.12h) 600 mg PO BID [facility] Last Admin: 12/28/24 20:46 Dose: 600 mg Cefepime HCl (Maxipime) 2 gm in 50 mls @ 100 mls/hr IV Q12H [facility] Last Infusion: 12/28/24 16:12 Dose: Infused Insulin Glargine (Insulin Glargine,Hum.Rec.Anlog 100 Unit/Ml 10 Ml Vial) 25 unit SUBCUT BEDTIME [facility] Last Admin: 12/28/24 20:48 Dose: 25 unit Insulin Human Lispro (Insulin Lispro 100 Unit/Ml 3 Ml Vial) 0 unit SUBCUT QIDACHS [facility]; Protocol Last Admin: 12/28/24 20:48 Dose: 4 unit Lamotrigine (Lamotrigine 100 Mg Tablet) 100 mg PO BEDTIME [facility] Last Admin: 12/28/24 20:47 Dose: 100 mg Lamotrigine (Lamotrigine 100 Mg Tablet) 200 mg PO DAILY [facility] Last Admin: 12/28/24 08:43 Dose: 200 mg Loratadine (Loratadine 10 Mg Tablet) 10 mg PO DAILY [facility] Last Admin: 12/28/24 08:43 Dose: 10 mg Magnesium Hydroxide (Milk Of Magnesia 30 Ml Oral.Susp) 30 ml PO DAILY PRN PRN Reason: Constipation Melatonin (Melatonin 3 Mg Tablet) 6 mg PO BEDTIME PRN PRN Reason: Insomnia Last Admin: 12/28/24 20:46 Dose: 6 mg Metoprolol Tartrate (Metoprolol Tartrate 50 Mg Tablet) 50 mg PO BID [facility]; Protocol Last Admin: 12/28/24 20:46 Dose: 50 mg Mirtazapine (Mirtazapine 15 Mg Tablet) 15 mg PO BEDTIME PRN PRN Reason: Sleep Nitroglycerin (Nitroglycerin 0.4 Mg Tab.Subl) 0.4 mg SUBLINGUAL Q5M PRN PRN Reason: Chest Pain Ondansetron HCl (Ondansetron Hcl 4 Mg/2 Ml Vial) 4 mg IVPUSH Q8H PRN PRN Reason: Nausea and Vomiting Pantoprazole Sodium (Pantoprazole Sodium 20 Mg Tablet.Dr) 20 mg PO DAILY@0630 [facility] Last Admin: 12/28/24 06:23 Dose: 20 mg Polyethylene Glycol (Polyethylene Glycol 3350 17 Gm Powd.Pack) 17 gm PO DAILY PRN PRN Reason: Constipation Prednisone (Prednisone 20 Mg Tablet) 40 mg PO DAILY [facility] Last Admin: 12/28/24 12:00 Dose: 40 mg Promethazine HCl (Promethazine Hcl 25 Mg Tablet) 25 mg PO Q8H PRN PRN Reason: nausea Senna (Sennosides 8.6 Mg Tablet) 17.2 mg PO BEDTIME [facility] Last Admin: 12/28/24 20:46 Dose: 17.2 mg Sodium Chloride (0.9 % Sodium Chloride Flush 3 Ml Syringe) 3 ml IVFLUSH QSHIFT [facility] Last Admin: 12/28/24 20:49 Dose: 3 ml Sodium Chloride (Sodium Chloride 0.65 % Nasal 44 Ml Sprbtl) 1 spray NOSTRIL-B Q1H PRN PRN Reason: Congestion Tamsulosin HCl (Tamsulosin Hcl 0.4 Mg Capsule) 0.8 mg PO BEDTIME [facility] Last Admin: 12/28/24 20:46 Dose: 0.8 mg Vitamin D (Cholecalciferol (Vitamin D3) 25 Mcg Tablet) 50 mcg PO DAILY [facility] Last Admin: 12/28/24 08:42 Dose: 50 mcg Home Medications ?Medication ?Instructions ?Recorded ?Confirmed ?Last Taken ?Type albuterol sulfate 90 mcg/actuation 2 puff inhalation BID PRN Wheezing 06/19/20 12/26/24 01/24/22 History aerosol inhaler atorvastatin 80 mg tablet 80 mg PO BEDTIME 06/19/20 12/26/24 12/25/24 History clopidogrel 75 mg tablet 75 mg PO DAILY 06/19/20 12/26/24 12/26/24 History duloxetine 60 mg capsule,delayed 60 mg PO BID 06/19/20 12/26/24 12/26/24 History release lamotrigine 200 mg tablet 100 mg PO BEDTIME 06/19/20 12/26/24 12/25/24 History amlodipine 10 mg tablet 1 tab PO DAILY 01/25/22 12/26/24 12/26/24 History aspirin 81 mg tablet,delayed 1 tab PO DAILY 01/25/22 12/26/24 12/26/24 History release fluticasone propionate 50 2 spray intranasal DAILY PRN 01/25/22 12/26/24 01/24/22 History mcg/actuation nasal Allergies spray,suspension insulin glargine 100 unit/mL (3 50 unit subcut BEDTIME 01/25/22 12/26/24 12/25/24 History mL) subcutaneous pen (Lantus Solostar U-100 Insulin) insulin lispro 100 unit/mL 15 unit subcut TIDAC 01/25/22 12/26/24 12/26/24 History subcutaneous solution (Humalog U-100 Insulin) mirtazapine 15 mg disintegrating 1 tab PO BEDTIME PRN Sleep 01/25/22 12/26/24 02/07/24 19:00 History tablet omeprazole 20 mg capsule,delayed 1 cap PO DAILY@0630 01/25/22 12/26/24 12/26/24 History release promethazine 25 mg tablet 1 tab PO Q8H PRN nausea 01/25/22 12/26/24 Unknown History cholecalciferol (vitamin D3) 50 50 mcg PO DAILY 06/22/23 12/26/24 12/26/24 History mcg (2,000 unit) capsule empagliflozin 10 mg tablet 10 mg PO DAILY 06/22/23 12/26/24 12/26/24 History (Jardiance) finasteride 5 mg tablet (Proscar) 5 mg PO DAILY 06/22/23 12/26/24 12/26/24 History metoprolol tartrate 100 mg tablet 50 mg PO BID 06/22/23 12/26/24 12/26/24 History clonazepam 1 mg tablet 0.5 mg PO TID 01/22/24 12/26/24 12/26/24 History diclofenac sodium 1 % topical gel 4 g topical QID PRN joint pain 07/03/24 12/26/24 Unknown History gabapentin 600 mg tablet 600 mg PO TID 07/03/24 12/26/24 12/26/24 History nitroglycerin 0.4 mg sublingual 0.4 mg sublingual Q5M PRN Chest 07/03/24 12/26/24 Unknown History tablet Pain econazole nitrate 1 % topical cream 1 appl topical BID 12/26/24 12/26/24 12/26/24 History lamotrigine 200 mg tablet 200 mg PO DAILY 12/26/24 12/26/24 12/26/24 History Physical Exam 2 Vital Signs: Vital Signs: Last Vital Signs Temp 98.7 F 12/28/24 23:17 Pulse 92 12/28/24 23:17 Resp 18 12/28/24 23:17 BP 157/75 H 12/28/24 23:17 Pulse Ox 94 12/28/24 23:17 O2 Del Method Nasal Cannula 12/28/24 23:17 O2 Flow Rate 2 12/28/24 23:17 BMI result Body Mass Index 29.2 Const: General: cooperative HEENT: Head: Yes normal to inspection Face and sinus: Yes normal facial exam Mouth: Normal oral and palatal mucosa present Teeth and gingiva: d entition normal Eyes: General: appearance normal, both eyes and all related structures P upils: Equal, round and reactive pupils present Resp: Effort & Inspection: normal respiratory effort Cardio: Rate: regular rate Rhythm: regular rhythm GI: Palpation (GI): Soft to palpation and nontender : General: Yes no CVA tenderness Back/Spine/Pelvis: Back: no CVA tenderness Skin: General skin exam: no rashes or lesions noted Neuro: General: moves all extremities Cranial nerves: Yes Equal, round and reactive pupils present Extrem: General: Yes normal to inspection Psych: Appearance: grossly normal Results Labs 12/28/24 06:27 12/28/24 06:27 Labs: Short CBC 12/28/24 Range/Units 06: WBC 6.8 (4.8-10.8) X10*3/uL Hgb 13.2 L (14.0-18.0) g/dl Hct 41.3 L (42.0-52.0) % Plt Count 194 (160-400) X10*3/uL BMP 12/28/24 06:27 Sodium 142 Potassium 3.5 Chloride 104 Carbon Dioxide 30 H BUN 11 Creatinine 0.64 Calcium 8.8 Microbiology Microbiology Results: Microbiology 12/26/24 13:31 Blood - Venous Blood Culture - Preliminary No growth after 48 hours. 12/26/24 13:31 Blood - Venous Blood Culture - Preliminary No growth after 48 hours. 12/26/24 Unknown Urine clean catch - Clean Catch Midstream Urine Culture - Final Pseudomonas aeruginosa Assessment and Plan (1) Pseudomonas infection: Status: Acute Plan Pseudomonas UTI resistant to quinolones. Would give IV Zosyn or Cefepime for five more days (7 days) See Urology
--- NOTE | 2024-12-28 23:52 | P.CNID_ITS ---
History of Present Illness Data of Consult Service Date: 12/27/24 Requesting physician: Alexis Brooke Primary Care Provider: DULCE De Paz Reason for consult: dysuria He presents with confusion. He has no fever or chills. He has some dysuria. Urine shows Pseudomonas resistant to quinolone. Review of Systems 2 Review of Systems: Yes all other systems are reviewed and are negative PMFSH Past Medical History Medical History Diabetic foot ulcer Fatty liver Asthma Vertebral artery stenosis QT prolongation PAD (peripheral artery disease) GERD (gastroesophageal reflux disease) Thyroid disease Diverticulitis Diverticulosis Dementia DJD of shoulder Insomnia Sleep apnea Depression Myocardial infarction Allergic rhinitis Cervicalgia 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 hyperplasia Hypertension COVID-19 Fall Hyperlipidemia Intracranial atherosclerosis BPH (benign prostatic hyperplasia) Coronary artery disease Diabetes Perforation of sigmoid colon due to diverticulitis High blood cholesterol Stroke Anxiety Family History Family History Other Coronary artery disease Diabetes Family history: reviewed and not pertinent Surgical History Surgical History S/P peripheral artery angioplasty H/O colonoscopy Hx of tonsillectomy History of shoulder surgery Hx of cervical spine surgery History of esophagogastroduodenoscopy (EGD) H/O neck surgery History of heart artery stent Social History Social History Household Members: Spouse Housing: Apartment Do you presently have visiting nurse or other home services: No Unable to assess alcohol history related to: Unknown Alcohol intake: former Year quit: 2006 Comment: heels elevated with pillows Patient Tobacco Use Status: Never used Tobacco Advance Directives Date on File: 07/15/20 service: No Current occupational status: unemployed Travel History Ebola Risk: Travel/Contact With Anyone From Affected Area/s: No Has Patient Experienced Ebola Symptoms: No Meds Allergies Allergy/AdvReac Type Severity Reaction Status Date / Time lisinopril [LISINOPRIL] Allergy Unknown Cough Verified 12/26/24 12:59 pregabalin [From [facility]ICA] Allergy Unknown Weakness Verified 12/26/24 12:59 divalproex sodium Allergy Unconscious Verified 12/26/24 12:59 [From [facility]] Active Medications: Current Medications Acetaminophen (Acetaminophen 325 Mg Tablet) 650 mg PO Q6H PRN PRN Reason: Pain, Mild 1-3,fever,headache Albuterol Sulfate (Albuterol Sulfate 90 Mcg 8 Gm Inhaler) 2 puff INHALE BID PRN PRN Reason: Wheezing Albuterol/Ipratropium (Albuterol/Iprat 2.5/0.5mg 3 Ml Ampul.Neb) 3 ml INHALE Q4H PRN PRN Reason: Shortness of Breath/Wheezing Last Admin: 12/27/24 05:29 Dose: 3 ml Albuterol/Ipratropium (Albuterol/Iprat 2.5/0.5mg 3 Ml Ampul.Neb) 3 ml INHALE RQ4H WHILE AWAKE [facility] Last Admin: 12/28/24 19:58 Dose: 3 ml Amlodipine Besylate (Amlodipine Besylate 10 Mg Tablet) 10 mg PO DAILY [facility]; Protocol Last Admin: 12/28/24 08:43 Dose: 10 mg Aspirin (Aspirin Enteric Coated 81 Mg Tablet.) 81 mg PO DAILY [facility] Last Admin: 12/28/24 08:43 Dose: 81 mg Atorvastatin Calcium (Atorvastatin Calcium 80 Mg Tablet) 80 mg PO BEDTIME [facility] Last Admin: 12/28/24 20:47 Dose: 80 mg Benzonatate (Benzonatate 100 Mg Capsule) 200 mg PO TID PRN PRN Reason: Cough Last Admin: 12/28/24 20:47 Dose: 200 mg Calcium Carbonate (Calcium Carbonate 750 Mg Tab.Chew) 750 mg PO Q4H PRN PRN Reason: Heartburn Clonazepam (Clonazepam 0.5 Mg Tablet) 0.5 mg PO TID PRN PRN Reason: anxiety/restlessness Clopidogrel Bisulfate (Clopidogrel Bisulfate 75 Mg Tablet) 75 mg PO DAILY [facility] Last Admin: 12/28/24 08:43 Dose: 75 mg Dextrose (Dextrose 50 % 25 Gm/50 Ml Syringe) 25 gm IVPUSH Q15M PRN; Protocol PRN Reason: per Hypoglycemia Standing Ord. Duloxetine HCl (Duloxetine Hcl 60 Mg Capsule.) 60 mg PO BID [facility] Last Admin: 12/28/24 20:47 Dose: 60 mg Enoxaparin Sodium (Enoxaparin Sodium 40 Mg/0.4 Ml Syringe) 40 mg SUBCUT Q24H [facility] Last Admin: 12/28/24 16:52 Dose: 40 mg Finasteride (Finasteride 5 Mg Tablet) 5 mg PO DAILY [facility] Last Admin: 12/28/24 08:44 Dose: 5 mg Fluticasone Propionate (Fluticasone Propionate Nasal 16 G[address] [place]) 1 spray NOSTRIL-B DAILY [facility] Last Admin: 12/28/24 12:00 Dose: 1 spray Gabapentin (Gabapentin 100 Mg Capsule) 200 mg PO TID [facility] Last Admin: 12/28/24 20:47 Dose: 200 mg Glucose (Glucose Gel 15 Gm Gel..Gram.) 15 gm PO Q15M PRN; Protocol PRN Reason: per Hypoglycemia Standing Ord. Guaifenesin (Guaifenesin La 600 Mg Tab.Er.12h) 600 mg PO BID [facility] Last Admin: 12/28/24 20:46 Dose: 600 mg Cefepime HCl (Maxipime) 2 gm in 50 mls @ 100 mls/hr IV Q12H [facility] Last Infusion: 12/28/24 16:12 Dose: Infused Insulin Glargine (Insulin Glargine,Hum.Rec.Anlog 100 Unit/Ml 10 Ml Vial) 25 unit SUBCUT BEDTIME [facility] Last Admin: 12/28/24 20:48 Dose: 25 unit Insulin Human Lispro (Insulin Lispro 100 Unit/Ml 3 Ml Vial) 0 unit SUBCUT QIDACHS [facility]; Protocol Last Admin: 12/28/24 20:48 Dose: 4 unit Lamotrigine (Lamotrigine 100 Mg Tablet) 100 mg PO BEDTIME [facility] Last Admin: 12/28/24 20:47 Dose: 100 mg Lamotrigine (Lamotrigine 100 Mg Tablet) 200 mg PO DAILY [facility] Last Admin: 12/28/24 08:43 Dose: 200 mg Loratadine (Loratadine 10 Mg Tablet) 10 mg PO DAILY [facility] Last Admin: 12/28/24 08:43 Dose: 10 mg Magnesium Hydroxide (Milk Of Magnesia 30 Ml Oral.Susp) 30 ml PO DAILY PRN PRN Reason: Constipation Melatonin (Melatonin 3 Mg Tablet) 6 mg PO BEDTIME PRN PRN Reason: Insomnia Last Admin: 12/28/24 20:46 Dose: 6 mg Metoprolol Tartrate (Metoprolol Tartrate 50 Mg Tablet) 50 mg PO BID [facility]; Protocol Last Admin: 12/28/24 20:46 Dose: 50 mg Mirtazapine (Mirtazapine 15 Mg Tablet) 15 mg PO BEDTIME PRN PRN Reason: Sleep Nitroglycerin (Nitroglycerin 0.4 Mg Tab.Subl) 0.4 mg SUBLINGUAL Q5M PRN PRN Reason: Chest Pain Ondansetron HCl (Ondansetron Hcl 4 Mg/2 Ml Vial) 4 mg IVPUSH Q8H PRN PRN Reason: Nausea and Vomiting Pantoprazole Sodium (Pantoprazole Sodium 20 Mg Tablet.Dr) 20 mg PO DAILY@0630 [facility] Last Admin: 12/28/24 06:23 Dose: 20 mg Polyethylene Glycol (Polyethylene Glycol 3350 17 Gm Powd.Pack) 17 gm PO DAILY PRN PRN Reason: Constipation Prednisone (Prednisone 20 Mg Tablet) 40 mg PO DAILY [facility] Last Admin: 12/28/24 12:00 Dose: 40 mg Promethazine HCl (Promethazine Hcl 25 Mg Tablet) 25 mg PO Q8H PRN PRN Reason: nausea Senna (Sennosides 8.6 Mg Tablet) 17.2 mg PO BEDTIME [facility] Last Admin: 12/28/24 20:46 Dose: 17.2 mg Sodium Chloride (0.9 % Sodium Chloride Flush 3 Ml Syringe) 3 ml IVFLUSH QSHIFT [facility] Last Admin: 12/28/24 20:49 Dose: 3 ml Sodium Chloride (Sodium Chloride 0.65 % Nasal 44 Ml Sprbtl) 1 spray NOSTRIL-B Q1H PRN PRN Reason: Congestion Tamsulosin HCl (Tamsulosin Hcl 0.4 Mg Capsule) 0.8 mg PO BEDTIME [facility] Last Admin: 12/28/24 20:46 Dose: 0.8 mg Vitamin D (Cholecalciferol (Vitamin D3) 25 Mcg Tablet) 50 mcg PO DAILY [facility] Last Admin: 12/28/24 08:42 Dose: 50 mcg Home Medications ?Medication ?Instructions ?Recorded ?Confirmed ?Last Taken ?Type albuterol sulfate 90 mcg/actuation 2 puff inhalation BID PRN Wheezing 06/19/20 12/26/24 01/24/22 History aerosol inhaler atorvastatin 80 mg tablet 80 mg PO BEDTIME 06/19/20 12/26/24 12/25/24 History clopidogrel 75 mg tablet 75 mg PO DAILY 06/19/20 12/26/24 12/26/24 History duloxetine 60 mg capsule,delayed 60 mg PO BID 06/19/20 12/26/24 12/26/24 History release lamotrigine 200 mg tablet 100 mg PO BEDTIME 06/19/20 12/26/24 12/25/24 History amlodipine 10 mg tablet 1 tab PO DAILY 01/25/22 12/26/24 12/26/24 History aspirin 81 mg tablet,delayed 1 tab PO DAILY 01/25/22 12/26/24 12/26/24 History release fluticasone propionate 50 2 spray intranasal DAILY PRN 01/25/22 12/26/24 01/24/22 History mcg/actuation nasal Allergies spray,suspension insulin glargine 100 unit/mL (3 50 unit subcut BEDTIME 01/25/22 12/26/24 12/25/24 History mL) subcutaneous pen (Lantus Solostar U-100 Insulin) insulin lispro 100 unit/mL 15 unit subcut TIDAC 01/25/22 12/26/24 12/26/24 History subcutaneous solution (Humalog U-100 Insulin) mirtazapine 15 mg disintegrating 1 tab PO BEDTIME PRN Sleep 01/25/22 12/26/24 02/07/24 19:00 History tablet omeprazole 20 mg capsule,delayed 1 cap PO DAILY@0630 01/25/22 12/26/24 12/26/24 History release promethazine 25 mg tablet 1 tab PO Q8H PRN nausea 01/25/22 12/26/24 Unknown History cholecalciferol (vitamin D3) 50 50 mcg PO DAILY 06/22/23 12/26/24 12/26/24 History mcg (2,000 unit) capsule empagliflozin 10 mg tablet 10 mg PO DAILY 06/22/23 12/26/24 12/26/24 History (Jardiance) finasteride 5 mg tablet (Proscar) 5 mg PO DAILY 06/22/23 12/26/24 12/26/24 History metoprolol tartrate 100 mg tablet 50 mg PO BID 06/22/23 12/26/24 12/26/24 History clonazepam 1 mg tablet 0.5 mg PO TID 01/22/24 12/26/24 12/26/24 History diclofenac sodium 1 % topical gel 4 g topical QID PRN joint pain 07/03/24 12/26/24 Unknown History gabapentin 600 mg tablet 600 mg PO TID 07/03/24 12/26/24 12/26/24 History nitroglycerin 0.4 mg sublingual 0.4 mg sublingual Q5M PRN Chest 07/03/24 12/26/24 Unknown History tablet Pain econazole nitrate 1 % topical cream 1 appl topical BID 12/26/24 12/26/24 12/26/24 History lamotrigine 200 mg tablet 200 mg PO DAILY 12/26/24 12/26/24 12/26/24 History Physical Exam 2 Vital Signs: Vital Signs: Last Vital Signs Temp 98.7 F 12/28/24 23:17 Pulse 92 12/28/24 23:17 Resp 18 12/28/24 23:17 BP 157/75 H 12/28/24 23:17 Pulse Ox 94 12/28/24 23:17 O2 Del Method Nasal Cannula 12/28/24 23:17 O2 Flow Rate 2 12/28/24 23:17 BMI result Body Mass Index 29.2 Const: General: cooperative HEENT: Head: Yes normal to inspection Face and sinus: Yes normal facial exam Mouth: Normal oral and palatal mucosa present Teeth and gingiva: d entition normal Eyes: General: appearance normal, both eyes and all related structures P upils: Equal, round and reactive pupils present Resp: Effort & Inspection: normal respiratory effort Cardio: Rate: regular rate Rhythm: regular rhythm GI: Palpation (GI): Soft to palpation and nontender : General: Yes no CVA tenderness Back/Spine/Pelvis: Back: no CVA tenderness Skin: General skin exam: no rashes or lesions noted Neuro: General: moves all extremities Cranial nerves: Yes Equal, round and reactive pupils present Extrem: General: Yes normal to inspection Psych: Appearance: grossly normal Results Labs 12/28/24 06:27 12/28/24 06:27 Labs: Short CBC 12/28/24 Range/Units 06:27 WBC 6.8 (4.8-10.8) X10*3/uL Hgb 13.2 L (14.0-18.0) g/dl Hct 41.3 L (42.0-52.0) % Plt Count 194 (160-400) X10*3/uL BMP 12/28/24 06:27 Sodium 142 Potassium 3.5 Chloride 104 Carbon Dioxide 30 H BUN 11 Creatinine 0.64 Calcium 8.8 Microbiology Microbiology Results: Microbiology 12/26/24 13:31 Blood - Venous Blood Culture - Preliminary No growth after 48 hours. 12/26/24 13:31 Blood - Venous Blood Culture - Preliminary No growth after 48 hours. 12/26/24 Unknown Urine clean catch - Clean Catch Midstream Urine Culture - Final Pseudomonas aeruginosa Assessment and Plan (1) Pseudomonas infection: Status: Acute (2) Acute confusion: Status: Acute Plan 7 days Cefepime If still concern over prostate 10 days Cefepime and po fosfomycin 3 g outpatient.
[2024-12-29] VITALS (8 sets, daily range): BP systolic 132–153; BP diastolic 72–96; PULSE 66–93; RESP 18; TEMP 36–36.4; O2SAT 92–95
[2024-12-29] MEDS: cefEPime HCl/D5W 2 GM/50 ML PIGGYBACK IV ×2 (02:35→15:45)
[2024-12-29] MEDS: Pantoprazole Sodium 20 MG TABLET.DR PO (05:53)
[2024-12-29 06:36] LABS: MANUAL DIFF FLAG NO
[2024-12-29 06:47] LABS: Basophils Percent Auto 0.4 % (0-2); Eosinophils Absolute Auto 0.1 X10*3/uL (0.0-0.4); Eosinophils Percent Auto 0.6 % (0-4); Hematocrit 39.1 % (42.0-52.0); Hemoglobin 12.9 g/dl (14.0-18.0); Imm Gran Abs Auto 0.32 X10*3/uL (0.00-0.03); Imm Gran Pct Auto 3.8 % (0.0-0.4); Lymphocytes Absolute Auto 1.8 X10*3/uL (1.2-4.9); Lymphocytes Percent Auto 21.3 % (20-40); Mean Corpuscular Hemoglobin 28.2 pg (27.0-33.0); Mean Corpuscular Volume 85.6 fL (80.0-98.0); Mean Platelet Volume 9.4 fL (9.4-12.4); Monocytes Absolute Auto 1.1 X10*3/uL (0.1-1.2); Monocytes Percent Auto 12.7 % (2-11); NRBC Pct Auto 0.2 /100WBC (0.0-0.2); Neutrophils Absolute Auto 5.1 x10*3/uL (2.0-8.3); Neutrophils Percent Auto 61.2 % (45-73); Platelet Count 208 X10*3/uL (160-400); Red Blood Count 4.57 X10*6/uL (4.60-5.80); Red Cell Distribution Width 12.9 % (11.0-16.0); White Blood Count 8.3 X10*3/uL (4.8-10.8)
[2024-12-29 06:52] LABS: Anion Gap 14 (12-20); Blood Urea Nitrogen 13 mg/dL (9-16); Calcium 9.2 mg/dL (8.4-10.2); Carbon Dioxide 30 mmol/L (22-29); Chloride 102 mmol/L (96-108); Creatinine Clr Calc Pharmacy 109.5; Estimated Glomerular Filt Rate > 60; Glucose Random 152 mg/dL (60-115); Potassium 3.7 mmol/L (3.3-5.1); Sodium 142 mmol/L (135-145)
[2024-12-29 07:46] LABS: Glucose, Whole Blood 145 mg/dL (60-115)
[2024-12-29] MEDS: predniSONE 20 MG TABLET 40 MG PO (09:00)
[2024-12-29] MEDS: Loratadine 10 MG TABLET PO (09:00)
[2024-12-29] MEDS: guaiFENesin LA 600 MG TAB.ER.12H PO ×2 (09:00→20:26)
[2024-12-29] MEDS: Aspirin Enteric Coated 81 MG TABLET.DR PO (09:00)
[2024-12-29] MEDS: Clopidogrel Bisulfate 75 MG TABLET PO (09:00)
[2024-12-29] MEDS: lamoTRIgine 100 MG TABLET 200 MG PO (09:00)
[2024-12-29] MEDS: Fluticasone Propionate Nasal 16 GM SPRAY 1 SPRAY NOSTRIL-B (09:00)
[2024-12-29] MEDS: Metoprolol Tartrate 50 MG TABLET PO ×2 (09:00→20:26)
[2024-12-29] MEDS: DULoxetine HCl 60 MG CAPSULE.DR PO ×2 (09:00→20:26)
[2024-12-29] MEDS: Gabapentin 100 MG CAPSULE 200 MG PO ×3 (09:00→20:26)
[2024-12-29] MEDS: Finasteride 5 MG TABLET PO (09:01)
[2024-12-29] MEDS: amLODIPine Besylate 10 MG TABLET PO (09:01)
[2024-12-29] MEDS: Cholecalciferol (Vitamin D3) 25 MCG TABLET 50 MCG PO (09:01)
[2024-12-29] MEDS: 0.9 % Sodium Chloride Flush 3 ML SYRINGE IVFLUSH ×3 (09:02→20:28)
[2024-12-29 11:19] LABS: Glucose, Whole Blood 207 mg/dL (60-115)
--- NOTE | 2024-12-29 11:29 | P.PNIM_ITS ---
Subjective Subjective Date of Service: 12/29/24 Interval History: seen and evaluated feels better but reporting cough and wheezing are improving on O2 supplement lower abd pain improving , george in place no other events Review of Systems Review of Systems: Yes all other systems are reviewed and are negative Physical Exam 2 Vital Signs: Vital Signs: Last Vital Signs Temp 96.8 F 12/29/24 07:37 Pulse 69 12/29/24 07:37 Resp 18 12/29/24 07:37 BP 145/75 H 12/29/24 09:00 Pulse Ox 94 12/29/24 07:37 O2 Del Method Nasal Cannula 12/29/24 07:37 O2 Flow Rate 2 12/29/24 07:37 BMI result Body Mass Index 29.2 Const: Other: Constitutional : Awake, interactive, weak, not in distress Neck : Normal inspection, Supple Cardiovascular : RRR, no JVP, no lower extremity edema Respiratory : fair bilateral air entry, no crackles, bilateral wheezes, On O2 supplement Gastrointestinal: soft, lax, Normal bowel sounds, Non tender Skin : Warm, Dry, george in place Neurological : Alert & oriented x3, No focal deficit Objective Data Active Medications Acetaminophen (Acetaminophen 325 Mg Tablet) 650 mg PO Q6H PRN PRN Reason: Pain, Mild 1-3,fever,headache Albuterol Sulfate (Albuterol Sulfate 90 Mcg 8 Gm Inhaler) 2 puff INHALE BID PRN PRN Reason: Wheezing Albuterol/Ipratropium (Albuterol/Iprat 2.5/0.5mg 3 Ml Ampul.Neb) 3 ml INHALE Q4H PRN PRN Reason: Shortness of Breath/Wheezing Last Admin: 12/27/24 05:29 Dose: 3 ml Documented By: MAURA Albuterol/Ipratropium (Albuterol/Iprat 2.5/0.5mg 3 Ml Ampul.Neb) 3 ml INHALE RQ4H WHILE AWAKE [facility] Last Admin: 12/29/24 08:00 Dose: Not Given Documented By: BRITTANY Non-Admin Reason: Patient Refused Amlodipine Besylate (Amlodipine Besylate 10 Mg Tablet) 10 mg PO DAILY [facility]; Protocol Last Admin: 12/29/24 09:01 Dose: 10 mg Documented By: CRISTIAN Aspirin (Aspirin Enteric Coated 81 Mg Tablet.) 81 mg PO DAILY [facility] Last Admin: 12/29/24 09:00 Dose: 81 mg Documented By: CRISTIAN Atorvastatin Calcium (Atorvastatin Calcium 80 Mg Tablet) 80 mg PO BEDTIME [facility] Last Admin: 12/28/24 20:47 Dose: 80 mg Documented By: DG Benzonatate (Benzonatate 100 Mg Capsule) 200 mg PO TID PRN PRN Reason: Cough Last Admin: 12/28/24 20:47 Dose: 200 mg Documented By: DG Calcium Carbonate (Calcium Carbonate 750 Mg Tab.Chew) 750 mg PO Q4H PRN PRN Reason: Heartburn Clonazepam (Clonazepam 0.5 Mg Tablet) 0.5 mg PO TID PRN PRN Reason: anxiety/restlessness Clopidogrel Bisulfate (Clopidogrel Bisulfate 75 Mg Tablet) 75 mg PO DAILY [facility] Last Admin: 12/29/24 09:00 Dose: 75 mg Documented By: CRISTIAN Dextrose (Dextrose 50 % 25 Gm/50 Ml Syringe) 25 gm IVPUSH Q15M PRN; Protocol PRN Reason: per Hypoglycemia Standing Ord. Duloxetine HCl (Duloxetine Hcl 60 Mg Capsule.) 60 mg PO BID [facility] Last Admin: 12/29/24 09:00 Dose: 60 mg Documented By: CRISTIAN Enoxaparin Sodium (Enoxaparin Sodium 40 Mg/0.4 Ml Syringe) 40 mg SUBCUT Q24H [facility] Last Admin: 12/28/24 16:52 Dose: 40 mg Documented By: CRISTIAN Finasteride (Finasteride 5 Mg Tablet) 5 mg PO DAILY [facility] Last Admin: 12/29/24 09:01 Dose: 5 mg Documented By: CRISTIAN Fluticasone Propionate (Fluticasone Propionate Nasal 16 Gm [place]) 1 spray NOSTRIL-B DAILY [facility] Last Admin: 12/29/24 09:00 Dose: 1 spray Documented By: CRISTIAN Gabapentin (Gabapentin 100 Mg Capsule) 200 mg PO TID [facility] Last Admin: 12/29/24 09:00 Dose: 200 mg Documented By: CRISTIAN Glucose (Glucose Gel 15 Gm Gel..Gram.) 15 gm PO Q15M PRN; Protocol PRN Reason: per Hypoglycemia Standing Ord. Guaifenesin (Guaifenesin La 600 Mg Tab.Er.12h) 600 mg PO BID [facility] Last Admin: 12/29/24 09:00 Dose: 600 mg Documented By: CRISTIAN Cefepime HCl (Maxipime) 2 gm in 50 mls @ 100 mls/hr IV Q12H [facility] Last Infusion: 12/29/24 03:09 Dose: Infused Documented By: DG Insulin Glargine (Insulin Glargine,Hum.Rec.Anlog 100 Unit/Ml 10 Ml Vial) 25 unit SUBCUT BEDTIME [facility] Last Admin: 12/28/24 20:48 Dose: 25 unit Documented By: DG Insulin Human Lispro (Insulin Lispro 100 Unit/Ml 3 Ml Vial) 0 unit SUBCUT QIDACHS [facility]; Protocol Last Admin: 12/29/24 08:11 Dose: Not Given Documented By: CRISTIAN Non-Admin Reason: No Insulin Coverage Lamotrigine (Lamotrigine 100 Mg Tablet) 100 mg PO BEDTIME [facility] Last Admin: 12/28/24 20:47 Dose: 100 mg Documented By: DG Lamotrigine (Lamotrigine 100 Mg Tablet) 200 mg PO DAILY [facility] Last Admin: 12/29/24 09:00 Dose: 200 mg Documented By: CRISTIAN Loratadine (Loratadine 10 Mg Tablet) 10 mg PO DAILY [facility] Last Admin: 12/29/24 09:00 Dose: 10 mg Documented By: CRISTIAN Magnesium Hydroxide (Milk Of Magnesia 30 Ml Oral.Susp) 30 ml PO DAILY PRN PRN Reason: Constipation Melatonin (Melatonin 3 Mg Tablet) 6 mg PO BEDTIME PRN PRN Reason: Insomnia Last Admin: 12/28/24 20:46 Dose: 6 mg Documented By: DG Metoprolol Tartrate (Metoprolol Tartrate 50 Mg Tablet) 50 mg PO BID [facility]; Protocol Last Admin: 12/29/24 09:00 Dose: 50 mg Documented By: CRISTIAN Mirtazapine (Mirtazapine 15 Mg Tablet) 15 mg PO BEDTIME PRN PRN Reason: Sleep Nitroglycerin (Nitroglycerin 0.4 Mg Tab.Subl) 0.4 mg SUBLINGUAL Q5M PRN PRN Reason: Chest Pain Ondansetron HCl (Ondansetron Hcl 4 Mg/2 Ml Vial) 4 mg IVPUSH Q8H PRN PRN Reason: Nausea and Vomiting Pantoprazole Sodium (Pantoprazole Sodium 20 Mg Tablet.Dr) 20 mg PO DAILY@0630 [facility] Last Admin: 12/29/24 05:53 Dose: 20 mg Documented By: DG Polyethylene Glycol (Polyethylene Glycol 3350 17 Gm Powd.Pack) 17 gm PO DAILY PRN PRN Reason: Constipation Prednisone (Prednisone 20 Mg Tablet) 40 mg PO DAILY [facility] Last Admin: 12/29/24 09:00 Dose: 40 mg Documented By: CRISTIAN Promethazine HCl (Promethazine Hcl 25 Mg Tablet) 25 mg PO Q8H PRN PRN Reason: nausea Senna (Sennosides 8.6 Mg Tablet) 17.2 mg PO BEDTIME [facility] Last Admin: 12/28/24 20:46 Dose: 17.2 mg Documented By: DG Sodium Chloride (0.9 % Sodium Chloride Flush 3 Ml Syringe) 3 ml IVFLUSH QSHIFT [facility] Last Admin: 12/29/24 09:02 Dose: 3 ml Documented By: CRISTIAN Sodium Chloride (Sodium Chloride 0.65 % Nasal 44 Ml Sprbtl) 1 spray NOSTRIL-B Q1H PRN PRN Reason: Congestion Tamsulosin HCl (Tamsulosin Hcl 0.4 Mg Capsule) 0.8 mg PO BEDTIME [facility] Last Admin: 12/28/24 20:46 Dose: 0.8 mg Documented By: DG Vitamin D (Cholecalciferol (Vitamin D3) 25 Mcg Tablet) 50 mcg PO DAILY [facility] Last Admin: 12/29/24 09:01 Dose: 50 mcg Documented By: CRISTIAN Labs 12/29/24 06:11 12/29/24 06:11 Labs: Laboratory Results - last 24 hr 12/28/24 12/28/24 12/28/24 11:09 16:15 19:51 MCV MCH MCHC RDW Plt Count MPV Immature Gran % (Auto) Neut % (Auto) Lymph % (Auto) [place] % (Auto) Eos % (Auto) Baso % (Auto) Lymph # (Auto) [place] # (Auto) Eos # (Auto) Baso # (Auto) Abs Immat Gran (auto) Absolute Neuts (auto) Absolute Nucleated RBC Nucleated RBC % (auto) Anion Gap Estim Creat Clear Calc Estimated GFR POC Glucose 182 H 263 H 232 H Random Glucose Calcium 12/29/24 12/29/24 12/29/24 06:11 07:40 11:13 MCV 85.6 MCH 28.2 MCHC 33.0 RDW 12.9 Plt Count 208 MPV 9.4 Immature Gran % (Auto) 3.8 H Neut % (Auto) 61.2 Lymph % (Auto) 21.3 [place] % (Auto) 12.7 H Eos % (Auto) 0.6 Baso % (Auto) 0.4 Lymph # (Auto) 1.8 [place] # (Auto) 1.1 Eos # (Auto) 0.1 Baso # (Auto) 0.0 Abs Immat Gran (auto) 0.32 H Absolute Neuts (auto) 5.1 Absolute Nucleated RBC 0.020 H Nucleated RBC % (auto) 0.2 Anion Gap 14 Estim Creat Clear Calc 109.5 Estimated GFR > 60 POC Glucose 145 H 207 H Random Glucose 152 H Calcium 9.2 Microbiology Microbiology Results: Microbiology 12/26/24 13:31 Blood Culture - Preliminary Blood - Venous No growth after 48 hours. 12/26/24 13:31 Blood Culture - Preliminary Blood - Venous No growth after 48 hours. 12/26/24 Unknown Urine Culture - Final Urine clean catch - Clean Catch Midstream Pseudomonas aeruginosa Assessment and Plan (1) Pseudomonas infection: Status: Acute (2) Hypoxia: Status: Acute (3) Acute confusion: Status: Acute (4) Acute UTI: Status: Acute Plan Pt is a 69 yo male with PMH CVA, UTI pseudomonas, IDDM II, BPH, hypertension, hyperlipidemia, [place] with PCI and stent x1, cervical spine surgery, osteoarthritis being admitted with acute encephalopathy secondary to UTI with a case of sinusitis. Acute hypoxic respiratory failure 2/2 reactive airway disease or COPD w exacerbation it seems he is chronic retainer of CO2 in VBG CTA neg PE incentive spirometer duo nebs, steroids wean O2 as tolerated acute toxic metabolic encephalopathy, resolved Continue cefepime OT did MOCA: scored , to be followed as outpatient. Fall prevention measures UTI Cx growing pseudomonas cefepime given history of MDR Pseudomonas January 2024 Blood cultures pending ID eval rec [address] midline Acute urine retention 2/2 BPH George placed, to remove and do void trial Tamsulosine and Finasterid follow with urology as outpatient Sinusitis [place] nasal spray ordered Claritin daily continue fluticasone Left elbow pain chronic calciications with no acute findigns on xray Tylenol 650 Q6 PRN Avoid NSAIDS for now Elevate Left arm as tolerated, nursing communication sent to notify if any warmth, swelling or redness develops. hold tramadol due to confusion IDDMII Sliding scale insulin Diabetic diet HTN Continue amlodipine and metoprolol when med rec completed Low Na diet GERD Continue omperazole CAD/HLD Continue Atorvastatin, LFTs stable continue aspirin Anxiety/Depression continue lamotrigine, duloxetine HX of CVA No obvious defecits, pt reports issues with balance and ambulaton as well as memory PT/OT referrals ordered Continue Plavix DVT prophylaxis: Lovenox PPI prophylaxis: Omeprazole Full Code status The patient will need overnight stay for treatment of encephalopathy and Urine infection with MDR Hx pending final cultures Quality Stroke Does the patient have a stroke diagnosis?: No Reason for No Anti-thrombotic by Day Two: N/A - Med Ordered VTE Prior VTE?: No VTE Risk Level:: Medical - moderate - high VTE Device Contraindication: N/A - Device Ordered VTE Drug Contraindication: N/A - Med Ordered
[2024-12-29] MEDS: Insulin Lispro 100 UNIT/ML 3 ML VIAL SUBCUT ×3 (12:38→20:27)
--- NOTE | 2024-12-29 14:55 | PC.NURSE ---
Pt voided post Byrd cath removal but did not save as instructed to . pt educated again on importance to save urine for measuring purposes for PVR
[2024-12-29 16:11] LABS: Glucose, Whole Blood 227 mg/dL (60-115)
[2024-12-29] MEDS: Enoxaparin Sodium 40 MG/0.4 ML SYRINGE SUBCUT (18:06)
[2024-12-29] MEDS: clonazePAM 0.5 MG TABLET PO (18:20)
--- NOTE | 2024-12-29 18:24 | PC.NURSE ---
Pt walked to the BR unable to void at this time , bladder scanned for 0cc will monitor
[2024-12-29 19:40] LABS: Glucose, Whole Blood 178 mg/dL (60-115)
[2024-12-29] MEDS: Tamsulosin HCL 0.4 MG CAPSULE 0.8 MG PO (20:26)
[2024-12-29] MEDS: Melatonin 3 MG TABLET 6 MG PO (20:26)
[2024-12-29] MEDS: Sennosides 8.6 MG TABLET 17.2 MG PO (20:26)
[2024-12-29] MEDS: lamoTRIgine 100 MG TABLET PO (20:27)
[2024-12-29] MEDS: Insulin Glargine,Hum.rec.anlog 100 UNIT/ML 10 ML VIAL 25 UNIT SUBCUT (20:27)
[2024-12-29] MEDS: Atorvastatin Calcium 80 MG TABLET PO (20:27)
[2024-12-29] MEDS: Benzonatate 100 MG CAPSULE 200 MG PO (20:27)
[2024-12-29] MEDS: Albuterol/Iprat 2.5/0.5MG 3 ML AMPUL.NEB INHALE (20:29)
[2024-12-30] VITALS (11 sets, daily range): BP systolic 114–147; BP diastolic 64–81; PULSE 75–87; RESP 18–20; TEMP 36.2–37; O2SAT 91–97
[2024-12-30] MEDS: cefEPime HCl/D5W 2 GM/50 ML PIGGYBACK IV ×2 (02:31→14:09)
[2024-12-30] MEDS: Pantoprazole Sodium 20 MG TABLET.DR PO (05:34)
[2024-12-30 07:45] LABS: Glucose, Whole Blood 132 mg/dL (60-115)
[2024-12-30] MEDS: predniSONE 20 MG TABLET 40 MG PO (08:28)
[2024-12-30] MEDS: Cholecalciferol (Vitamin D3) 25 MCG TABLET 50 MCG PO (08:28)
[2024-12-30] MEDS: DULoxetine HCl 60 MG CAPSULE.DR PO ×2 (08:28→20:28)
[2024-12-30] MEDS: Gabapentin 100 MG CAPSULE 200 MG PO ×3 (08:28→20:28)
[2024-12-30] MEDS: Clopidogrel Bisulfate 75 MG TABLET PO (08:28)
[2024-12-30] MEDS: lamoTRIgine 100 MG TABLET 200 MG PO (08:29)
[2024-12-30] MEDS: Aspirin Enteric Coated 81 MG TABLET.DR PO (08:29)
[2024-12-30] MEDS: guaiFENesin LA 600 MG TAB.ER.12H PO ×2 (08:29→20:28)
[2024-12-30] MEDS: amLODIPine Besylate 10 MG TABLET PO (08:30)
[2024-12-30] MEDS: Loratadine 10 MG TABLET PO (08:30)
[2024-12-30] MEDS: Finasteride 5 MG TABLET PO (08:30)
[2024-12-30] MEDS: Metoprolol Tartrate 50 MG TABLET PO ×2 (08:30→20:28)
[2024-12-30] MEDS: Fluticasone Propionate Nasal 16 GM SPRAY 1 SPRAY NOSTRIL-B (08:34)
[2024-12-30] MEDS: 0.9 % Sodium Chloride Flush 3 ML SYRINGE IVFLUSH ×3 (08:35→20:32)
[2024-12-30] MEDS: Albuterol/Iprat 2.5/0.5MG 3 ML AMPUL.NEB INHALE ×4 (09:04→18:49)
[2024-12-30 11:11] LABS: Glucose, Whole Blood 195 mg/dL (60-115)
[2024-12-30] MEDS: Insulin Lispro 100 UNIT/ML 3 ML VIAL SUBCUT ×3 (11:29→20:34)
[2024-12-30] MEDS: clonazePAM 0.5 MG TABLET PO ×2 (13:15→20:28)
--- NOTE | 2024-12-30 15:38 | MHC.CM.PN ---
per rounds pt will need a pt eval prior to dc plan determined ?str
--- NOTE | 2024-12-30 15:53 | HO.PM.IMPN ---
Subjective Subjective Date of Service: 12/30/24 Interval History: seen and evaluated feels better but reporting cough and wheezing are improving on O2 supplement lower abd pain improving , george in place no other events Physical Exam Vital Signs: Vital Signs: Last Vital Signs Temp 97.4 F 12/30/24 15:43 Pulse 85 12/30/24 15:43 Resp 18 12/30/24 15:43 BP 120/68 12/30/24 15:43 Pulse Ox 97 12/30/24 15:43 O2 Del Method Aerosol Mask 12/30/24 15:43 O2 Flow Rate 2 12/30/24 15:43 BMI result Body Mass Index 29.2 Const: Other: Constitutional : Awake, interactive, weak, not in distress Neck : Normal inspection, Supple Cardiovascular : RRR, no JVP, no lower extremity edema Respiratory : fair bilateral air entry, no crackles, bilateral wheezes, On O2 supplement Gastrointestinal: soft, lax, Normal bowel sounds, Non tender Skin : Warm, Dry, george in place Neurological : Alert & oriented x3, No focal deficit Objective Data Active Medications Acetaminophen (Acetaminophen 325 Mg Tablet) 650 mg PO Q6H PRN PRN Reason: Pain, Mild 1-3,fever,headache Albuterol Sulfate (Albuterol Sulfate 90 Mcg 8 Gm Inhaler) 2 puff INHALE BID PRN PRN Reason: Wheezing Albuterol/Ipratropium (Albuterol/Iprat 2.5/0.5mg 3 Ml Ampul.Neb) 3 ml INHALE Q4H PRN PRN Reason: Shortness of Breath/Wheezing Last Admin: 12/27/24 05:29 Dose: 3 ml Documented By: MAURA Albuterol/Ipratropium (Albuterol/Iprat 2.5/0.5mg 3 Ml Ampul.Neb) 3 ml INHALE RQ4H WHILE AWAKE [facility] Last Admin: 12/30/24 14:54 Dose: 3 ml Documented By: GIULIANA Amlodipine Besylate (Amlodipine Besylate 10 Mg Tablet) 10 mg PO DAILY [facility]; Protocol Last Admin: 12/30/24 08:30 Dose: 10 mg Documented By: RISSA Aspirin (Aspirin Enteric Coated 81 Mg Tablet.) 81 mg PO DAILY [facility] Last Admin: 12/30/24 08:29 Dose: 81 mg Documented By: RISSA Atorvastatin Calcium (Atorvastatin Calcium 80 Mg Tablet) 80 mg PO BEDTIME [facility] Last Admin: 12/29/24 20:27 Dose: 80 mg Documented By: LYSZ Benzonatate (Benzonatate 100 Mg Capsule) 200 mg PO TID PRN PRN Reason: Cough Last Admin: 12/29/24 20:27 Dose: 200 mg Documented By: DG Calcium Carbonate (Calcium Carbonate 750 Mg Tab.Chew) 750 mg PO Q4H PRN PRN Reason: Heartburn Clonazepam (Clonazepam 0.5 Mg Tablet) 0.5 mg PO TID PRN PRN Reason: anxiety/restlessness Last Admin: 12/30/24 13:15 Dose: 0.5 mg Documented By: RISSA Clopidogrel Bisulfate (Clopidogrel Bisulfate 75 Mg Tablet) 75 mg PO DAILY [facility] Last Admin: 12/30/24 08:28 Dose: 75 mg Documented By: RISSA Dextrose (Dextrose 50 % 25 Gm/50 Ml Syringe) 25 gm IVPUSH Q15M PRN; Protocol PRN Reason: per Hypoglycemia Standing Ord. Duloxetine HCl (Duloxetine Hcl 60 Mg Capsule.Dr) 60 mg PO BID [facility] Last Admin: 12/30/24 08:28 Dose: 60 mg Documented By: RISSA Enoxaparin Sodium (Enoxaparin Sodium 40 Mg/0.4 Ml Syringe) 40 mg SUBCUT Q24H [facility] Last Admin: 12/29/24 18:06 Dose: 40 mg Documented By: CRISTIAN Finasteride (Finasteride 5 Mg Tablet) 5 mg PO DAILY [facility] Last Admin: 12/30/24 08:30 Dose: 5 mg Documented By: RISSA Fluticasone Propionate (Fluticasone Propionate Nasal 16 Gm [place]) 1 spray NOSTRIL-B DAILY [facility] Last Admin: 12/30/24 08:34 Dose: 1 spray Documented By: RISSA Gabapentin (Gabapentin 100 Mg Capsule) 200 mg PO TID [facility] Last Admin: 12/30/24 15:15 Dose: 200 mg Documented By: RISSA Glucose (Glucose Gel 15 Gm Gel..Gram.) 15 gm PO Q15M PRN; Protocol PRN Reason: per Hypoglycemia Standing Ord. Guaifenesin (Guaifenesin La 600 Mg Tab.Er.12h) 600 mg PO BID [facility] Last Admin: 12/30/24 08:29 Dose: 600 mg Documented By: RISSA Cefepime HCl (Maxipime) 2 gm in 50 mls @ 100 mls/hr IV Q12H [facility] Last Infusion: 12/30/24 14:42 Dose: Infused Documented By: RISSA Insulin Glargine (Insulin Glargine,Hum.Rec.Anlog 100 Unit/Ml 10 Ml Vial) 25 unit SUBCUT BEDTIME [facility] Last Admin: 12/29/24 20:27 Dose: 25 unit Documented By: DG Insulin Human Lispro (Insulin Lispro 100 Unit/Ml 3 Ml Vial) 0 unit SUBCUT QIDACHS [facility]; Protocol Last Admin: 12/30/24 11:29 Dose: 2 unit Documented By: RISSA Lamotrigine (Lamotrigine 100 Mg Tablet) 100 mg PO BEDTIME [facility] Last Admin: 12/29/24 20:27 Dose: 100 mg Documented By: DG Lamotrigine (Lamotrigine 100 Mg Tablet) 200 mg PO DAILY [facility] Last Admin: 12/30/24 08:29 Dose: 200 mg Documented By: RISSA Loratadine (Loratadine 10 Mg Tablet) 10 mg PO DAILY [facility] Last Admin: 12/30/24 08:30 Dose: 10 mg Documented By: RISSA Magnesium Hydroxide (Milk Of Magnesia 30 Ml Oral.Susp) 30 ml PO DAILY PRN PRN Reason: Constipation Melatonin (Melatonin 3 Mg Tablet) 6 mg PO BEDTIME PRN PRN Reason: Insomnia Last Admin: 12/29/24 20:26 Dose: 6 mg Documented By: DG Metoprolol Tartrate (Metoprolol Tartrate 50 Mg Tablet) 50 mg PO BID [facility]; Protocol Last Admin: 12/30/24 08:30 Dose: 50 mg Documented By: RISSA Mirtazapine (Mirtazapine 15 Mg Tablet) 15 mg PO BEDTIME PRN PRN Reason: Sleep Nitroglycerin (Nitroglycerin 0.4 Mg Tab.Subl) 0.4 mg SUBLINGUAL Q5M PRN PRN Reason: Chest Pain Ondansetron HCl (Ondansetron Hcl 4 Mg/2 Ml Vial) 4 mg IVPUSH Q8H PRN PRN Reason: Nausea and Vomiting Pantoprazole Sodium (Pantoprazole Sodium 20 Mg Tablet.) 20 mg PO DAILY@0630 [facility] Last Admin: 12/30/24 05:34 Dose: 20 mg Documented By: DG Polyethylene Glycol (Polyethylene Glycol 3350 17 Gm Powd.Pack) 17 gm PO DAILY PRN PRN Reason: Constipation Prednisone (Prednisone 20 Mg Tablet) 40 mg PO DAILY [facility] Last Admin: 12/30/24 08:28 Dose: 40 mg Documented By: RISSA Promethazine HCl (Promethazine Hcl 25 Mg Tablet) 25 mg PO Q8H PRN PRN Reason: nausea Senna (Sennosides 8.6 Mg Tablet) 17.2 mg PO BEDTIME [facility] Last Admin: 12/29/24 20:26 Dose: 17.2 mg Documented By: DG Sodium Chloride (0.9 % Sodium Chloride Flush 3 Ml Syringe) 3 ml IVFLUSH QSHIFT [facility] Last Admin: 12/30/24 15:21 Dose: 3 ml Documented By: RISSA Sodium Chloride (Sodium Chloride 0.65 % Nasal 44 Ml Sprbtl) 1 spray NOSTRIL-B Q1H PRN PRN Reason: Congestion Tamsulosin HCl (Tamsulosin Hcl 0.4 Mg Capsule) 0.8 mg PO BEDTIME [facility] Last Admin: 12/29/24 20:26 Dose: 0.8 mg Documented By: DG Vitamin D (Cholecalciferol (Vitamin D3) 25 Mcg Tablet) 50 mcg PO DAILY [facility] Last Admin: 12/30/24 08:28 Dose: 50 mcg Documented By: RISSA Labs 12/29/24 06:11 12/29/24 06:11 Labs: Laboratory Results - last 24 hr 12/29/24 12/29/24 12/30/24 16:07 19:29 07:35 POC Glucose 227 H 178 H 132 H 12/30/24 11:06 POC Glucose 195 H Assessment and Plan (1) Pseudomonas infection: Status: Acute (2) Hypoxia: Status: Acute Plan Pt is a 69 yo male with PMH CVA, UTI pseudomonas, IDDM II, BPH, hypertension, hyperlipidemia, [place] with PCI and stent x1, cervical spine surgery, osteoarthritis being admitted with acute encephalopathy secondary to UTI with a case of sinusitis. Acute hypoxic respiratory failure 2/2 reactive airway disease or COPD w exacerbation it seems he is chronic retainer of CO2 in VBG CTA neg PE incentive spirometer duo nebs, steroids wean O2 as tolerated acute toxic metabolic encephalopathy, resolved Continue cefepime OT did MOCA: scored 16/30 , to be followed as outpatient. Fall prevention measures UTI Cx growing pseudomonas cefepime given history of MDR Pseudomonas January 2024 Blood cultures pending ID eval rec [address] midline Acute urine retention 2/2 BPH George placed, to remove and do void trial Tamsulosine and Finasterid follow with urology as outpatient Sinusitis [place] nasal spray ordered Claritin daily continue fluticasone Left elbow pain chronic calciications with no acute findigns on xray Tylenol 650 Q6 PRN Avoid NSAIDS for now Elevate Left arm as tolerated, nursing communication sent to notify if any warmth, swelling or redness develops. hold tramadol due to confusion IDDMII Sliding scale insulin Diabetic diet HTN Continue amlodipine and metoprolol when med rec completed Low Na diet GERD Continue omperazole CAD/HLD Continue Atorvastatin, LFTs stable continue aspirin Anxiety/Depression continue lamotrigine, duloxetine HX of CVA No obvious defecits, pt reports issues with balance and ambulaton as well as memory PT/OT referrals ordered Continue Plavix DVT prophylaxis: Lovenox PPI prophylaxis: Omeprazole Full Code status The patient will need overnight stay for treatment of encephalopathy and Urine infection with MDR Hx pending final cultures Quality Stroke Does the patient have a stroke diagnosis?: No Reason for No Anti-thrombotic by Day Two: N/A - Med Ordered VTE Prior VTE?: No VTE Risk Level:: Medical - moderate - high VTE Device Contraindication: N/A - Device Ordered VTE Drug Contraindication: N/A - Med Ordered
[2024-12-30 16:38] LABS: Glucose, Whole Blood 288 mg/dL (60-115)
[2024-12-30] MEDS: Enoxaparin Sodium 40 MG/0.4 ML SYRINGE SUBCUT (18:16)
[2024-12-30 20:09] LABS: Glucose, Whole Blood 223 mg/dL (60-115)
[2024-12-30] MEDS: Melatonin 3 MG TABLET 6 MG PO (20:27)
[2024-12-30] MEDS: Sennosides 8.6 MG TABLET 17.2 MG PO (20:28)
[2024-12-30] MEDS: Tamsulosin HCL 0.4 MG CAPSULE 0.8 MG PO (20:28)
[2024-12-30] MEDS: Atorvastatin Calcium 80 MG TABLET PO (20:29)
[2024-12-30] MEDS: Acetaminophen 325 MG TABLET 650 MG PO (20:29)
[2024-12-30] MEDS: lamoTRIgine 100 MG TABLET PO (20:29)
[2024-12-30] MEDS: Mirtazapine 15 MG TABLET PO (20:32)
[2024-12-30] MEDS: Insulin Glargine,Hum.rec.anlog 100 UNIT/ML 10 ML VIAL 25 UNIT SUBCUT (20:34)
[2024-12-31] MEDS: cefEPime HCl/D5W 2 GM/50 ML PIGGYBACK IV ×2 (01:07→12:04)
[2024-12-31 03:09] VITALS: BP 116/57; PULSE 81; RESP 16; TEMP 36; O2SAT 95
[2024-12-31 04:00] VITALS: BP 140/83; PULSE 64; RESP 18; TEMP 36.1; O2SAT 96
[2024-12-31] MEDS: Pantoprazole Sodium 20 MG TABLET.DR PO (05:31)
[2024-12-31 07:27] LABS: Glucose, Whole Blood 168 mg/dL (60-115)
[2024-12-31 07:28] VITALS: BP 126/67; PULSE 72; RESP 16; TEMP 36.4; O2SAT 92
[2024-12-31] MEDS: Albuterol/Iprat 2.5/0.5MG 3 ML AMPUL.NEB INHALE (08:03)
[2024-12-31 08:05] VITALS: PULSE 69; RESP 20; O2SAT 92
[2024-12-31] MEDS: predniSONE 20 MG TABLET 40 MG PO (08:08)
[2024-12-31] MEDS: Gabapentin 100 MG CAPSULE 200 MG PO (08:08)
[2024-12-31] MEDS: lamoTRIgine 100 MG TABLET 200 MG PO (08:08)
[2024-12-31] MEDS: Cholecalciferol (Vitamin D3) 25 MCG TABLET 50 MCG PO (08:08)
[2024-12-31] MEDS: Aspirin Enteric Coated 81 MG TABLET.DR PO (08:09)
[2024-12-31] MEDS: DULoxetine HCl 60 MG CAPSULE.DR PO (08:09)
[2024-12-31] MEDS: amLODIPine Besylate 10 MG TABLET PO (08:09)
[2024-12-31] MEDS: Loratadine 10 MG TABLET PO (08:09)
[2024-12-31] MEDS: Metoprolol Tartrate 50 MG TABLET PO (08:09)
[2024-12-31] MEDS: guaiFENesin LA 600 MG TAB.ER.12H PO (08:09)
[2024-12-31] MEDS: Clopidogrel Bisulfate 75 MG TABLET PO (08:09)
[2024-12-31] MEDS: Finasteride 5 MG TABLET PO (08:09)
[2024-12-31] MEDS: clonazePAM 0.5 MG TABLET PO (08:14)
[2024-12-31] MEDS: Insulin Lispro 100 UNIT/ML 3 ML VIAL SUBCUT ×2 (08:15→11:56)
[2024-12-31] MEDS: Fluticasone Propionate Nasal 16 GM SPRAY 1 SPRAY NOSTRIL-B (08:17)
[2024-12-31] MEDS: 0.9 % Sodium Chloride Flush 3 ML SYRINGE IVFLUSH (08:19)
--- NOTE | 2024-12-31 11:39 | HO.MIDLINE ---
Midline Insertion MIDLINE INSERTION Diagnosis: UTI Indication: Custodial antibiotics needed Pertinent Labs: reviewed Technique: Using sterile technique including cap and mask, glove and drape, the right arm was prepped and draped in the usual sterile fashion of full barrier technique with CHG. Using ultrasound guidance, right basilic vein access was obtained on first attempt. A20G X 8CM non-PASV ST Midline was positioned. The procedure was performed in S272. Ultrasound was used to document vein patency and for needle entry. A formal ultrasound picture was recorded. [employer] has released the line for use and it is currently dressed with a StatLock, Tegaderm, and CHG disc. Verification has been performed for blood return and line patency. Arm Circumference: 27 CM Equipment: PowerGlide ST Midline Catheter Catheter Type: 20G x 8CM non-PASV Midline Lot #: [id number]
[2024-12-31 11:48] LABS: Glucose, Whole Blood 163 mg/dL (60-115)
--- NOTE | 2024-12-31 11:49 | MHC.CM.PN ---
pt dcd today to [facility] amb booked form 1 chris piper notified
--- NOTE | 2024-12-31 12:07 | PM.DS ---
DS: Providers Provider Date of Service: 12/31/24 Date of admission: 12/26/24 18:50 Date of discharge: 12/31/24 Primary care physician: DULCE De Paz Consults: 12/26/24 19:30 Consult to Case Management Routine Comment: review needs at home, both pt and spouse have mult 12/28/24 08:25 Consult to Infectious Diseases Routine Consulting Provider: [facility] Reason for consultation: Pseudomonas UTI MDR. DS: Diagnosis Discharge Diagnosis (1) Pseudomonas infection: Status: Acute (2) Hypoxia: Status: Acute (3) Acute confusion: Status: Acute (4) Acute UTI: Status: Acute (5) Physical deconditioning: Status: Acute DS: Summary Hospital Course Hospital Course: Admission note HPI Pt is a 69 yo male with PMH CVA, UTI pseudomonas, IDDM II, BPH, hypertension, hyperlipidemia, HI with PCI and stent x1, cervical spine surgery, osteoarthritis was sent to the emergency room for increasing confusion especially over the last 48 hours. Per patient's spouse patient was speaking to his grandchildren but they were not actually present. Patient reported to ED provider that he fell 2 days prior while he was playing football with his grandchild. Head CT negative for acute findings. Left elbow negative for acute issues with chronic calcification in the elbow joint. Patient states today that he has not seen his grandchildren for at least 1 week as they live in [place]. Patient did state that his grandchildren were ill with flu and cold like symptoms. Patient currently can tell me he is at [facility] and that it is December 2024. Initially patient was confused and alert to self only in the ED. Patient did receive IV fluids and started on cefepime with a history of Pseudomonas in his urine. UA appears positive for UTI. Chest x-ray and CTA negative for evidence of pneumonia. There is possible sinusitis and patient does present with nasal congestion. Patient states he has productive cough of green sputum. The CTA was negative for PE as well. Lactate 1.7. Procalcitonin 0.09. CRP 33.7. Patient does have a mild leukocytosis of 11.3 with no bandemia. Patient currently afebrile and denies any chills or fever at home. Patient currently denies any chest pain or shortness of breath at rest. Patient is on nasal cannula for support. Patient does not use oxygen at home. Patient does explain that overall he is having more trouble with ambulation when using his walker. His apartment is small so using his walker is difficult. Patient states both he and his spouse have complex health problems. Patient no longer drives since having a stroke. Patient does not have any in-home nursing services. Patient states daughter helps with most of there everyday living activities including laundry and cooking. Patient does acknowledge that he has chronic memory problems but more likely acute encephalopathy secondary to UTI. Patient states he thinks he has dementia but has not been seen by a neurologist for official diagnosis. Hospital course - UTI . Urine Cx growing pseudomonas. cefepime given history of MDR Pseudomonas. Blood cultures negative. ID evaluated the patient and recommended 10 days Cefepime. placed midline. 5 more days in SNF to finish by 01/05/2025. Non-PASV Midline placed; will need heparin 50 units flushes. - Acute hypoxic respiratory failure from reactive airway disease or COPD w exacerbation. it seems he is chronic retainer of CO2 in VBG. CTA neg PE. encourage incentive spirometer. use as needed duo nebs, steroids. wean O2 as tolerated. - acute toxic metabolic encephalopathy, resolved, from infection. Continue cefepime - OT did MOCA: scored 16/30 , to be followed as outpatient. Fall prevention measures - Developed Acute urine retention 2/2 BPH . George placed in ED, removed and tolerated well. passed urine with no concerns. continue Tamsulosine and Finasteride. follow with urology as outpatient - Sinusitis, [place] nasal spray ordered, Claritin daily, fluticasone spray. - Left elbow pain. chronic calcifications with no acute findigns on xray. physical therapy and tylenol as needed Discharge plan Continue Cefepime for 5 more days Prednisone 3 more days Nebulizers as needed increase physical activity as needed no other events Time Attestation Discharge Coordination Time (in mins): 43 Quality: Safe Use of Opioids Does Pt have an Active Cancer Diagnosis on the Problem List?: No Quality: Stroke Does the patient have a stroke diagnosis?: No Physical Exam Vital Signs: Vital Signs: Last Vital Signs Temp 97.4 F 12/30/24 15:43 Pulse 85 12/30/24 15:43 Resp 18 12/30/24 15:43 BP 120/68 12/30/24 15:43 Pulse Ox 97 12/30/24 15:43 O2 Del Method Aerosol Mask 12/30/24 15:43 O2 Flow Rate 2 12/30/24 15:43 BMI result Body Mass Index 29.2 Const: Other: Constitutional : Awake, interactive, weak, not in distress Neck : Normal inspection, Supple Cardiovascular : RRR, no JVP, no lower extremity edema Respiratory : fair bilateral air entry, no crackles, bilateral wheezes, On O2 supplement Gastrointestinal: soft, lax, Normal bowel sounds, Non tender Skin : Warm, Dry, george in place Neurological : Alert & oriented x3, No focal deficit DS: Data Data Completed and Pending Labs on day of discharge: Laboratory Results - last 24 hr 12/29/24 12/29/24 12/30/24 16:07 19:29 07:35 POC Glucose 227 H 178 H 132 H 12/30/24 11:06 POC Glucose 195 H Preliminary micro results at discharge 12/26/24 13:31 Blood Culture - Preliminary Blood - Venous No growth after 48 hours. 12/26/24 13:31 Blood Culture - Preliminary Blood - Venous No growth after 48 hours. Imaging Chest x-ray: Radiologist's impression: ITS Impressions Elbow X-Ray 12/26/24 13:42 IMPRESSION: Probable ligamentous calcifications adjacent to the lateral humeral epicondyle. Soft tissue swelling over the olecranon. Otherwise unremarkable examination of the left elbow. Electronically signed by: Paco Briscoe MD 12/26/2024 02:57 PM EDT Chest X-Ray 12/26/24 14:31 IMPRESSION: Consider mild interstitial lung edema versus acute small airway inflammatory processes in the correct clinical setting Electronically signed by: Derian Johnson MD 12/26/2024 02:59 PM EDT Discharge Plan Discharge Anticipated Discharge Date/Time: 12/31/24 12:06 Patient Disposition: er [facility] Discharge Diagnosis: UTI hypoxia Referrals: [facility] [Other] - 1 Week Suman Lu PA [Primary Care Provider] - 1 Week Discharge Medications: New loratadine 10 mg Tablet 10 mg PO DAILY Qty: 10 0RF cefepime in dextrose 5 % 2 gram/50 mL Piggyback 2 g IV Q12H Qty: 12 0RF ipratropium-albuterol 0.5 mg-3 mg(2.5 mg base)/3 mL Solution For Nebulization 3 ml inhalation Q4H PRN (Reason: Shortness Of Breath/Wheezing) 7 Days Qty: 90 0RF [place] Nasal 0.65 % Aerosol,[place] [facility] 1 spray intranasal Q1H PRN (Reason: Congestion) Qty: 44 0RF prednisone 20 mg Tablet 40 mg PO DAILY Qty: 6 0RF guaifenesin [Mucinex] 600 mg Tablet Extended Release 12hr 600 mg PO BID Qty: 20 0RF Continued atorvastatin 80 mg tablet 80 mg PO BEDTIME lamotrigine 200 mg tablet 100 mg PO BEDTIME clopidogrel 75 mg tablet 75 mg PO DAILY albuterol sulfate 90 mcg/actuation HFA aerosol inhaler 2 puff inhalation BID PRN (Reason: Wheezing) duloxetine 60 mg capsule,delayed release(DR/EC) 60 mg PO BID tamsulosin 0.4 mg Capsule 0.8 mg PO BEDTIME Qty: 30 0RF aspirin 81 mg tablet,delayed release (DR/EC) 1 tab PO DAILY amlodipine 10 mg tablet 1 tab PO DAILY promethazine 25 mg tablet 1 tab PO Q8H PRN (Reason: nausea) omeprazole 20 mg capsule,delayed release(DR/EC) 1 cap PO DAILY@0630 insulin lispro [Humalog U-100 Insulin] 100 unit/mL solution 15 unit subcut TIDAC mirtazapine 15 mg tablet,disintegrating 1 tab PO BEDTIME PRN (Reason: Sleep) fluticasone propionate 50 mcg/actuation spray,suspension 2 spray intranasal DAILY PRN (Reason: Allergies) Rx Instructions: in each nostril insulin glargine [Lantus Solostar U-100 Insulin] 100 unit/mL (3 mL) insulin pen 50 unit subcut BEDTIME gabapentin 600 mg tablet 600 mg PO TID nitroglycerin 0.4 mg Tablet, Sublingual 0.4 mg SUBLINGUAL Q5M PRN (Reason: Chest Pain) Rx Instructions: do not exceed 3 doses per episode diclofenac sodium 1 % gel 4 g topical QID PRN (Reason: joint pain) Jardiance 10 mg Tablet 10 mg PO DAILY metoprolol tartrate 100 mg Tablet 50 mg PO BID cholecalciferol (vitamin D3) 50 mcg (2,000 unit) Capsule 50 mcg PO DAILY finasteride [Proscar] 5 mg tablet 5 mg PO DAILY econazole nitrate 1 % cream 1 appl topical BID lamotrigine 200 mg tablet 200 mg PO DAILY clonazepam 1 mg tablet 0.5 mg PO TID Discharge Orders: Discharge Order (Routine); Ordered 12/31/24 Ordered By: Parker Baker Diet: Diabetic diet Activity on Discharge: As tolerated Stand Alone Forms: Patient Portal Discharge page Print Language: Mohawk Care Plan Goals: Continue Cefepime for 6 more days Prednisone 3 more days Nebulizers as needed increase physical activity as needed no other events Health Concerns: PSeudomonas UTI Plan of Treatment: Antibiotics NEbulizers physical therapy Assessment: as above
== END 2024-12-31 12:50 | disposition skilled nursing facility (03) | DRG 689 ==
LOC: HO.ED 17:42 → HO.EDOVER 20:10 → HO.S3 12-27 10:55
PROVIDERS: Emergency Medicine; Nurse Practitioner Family; Admitting Provider Student in an Organized Health Care Education/Training Program; Emergency Provider Emergency Medicine; PCP Physician Assistant Medical; Visit Provider Student in an Organized Health Care Education/Training Program
DX: N39.0 Urinary tract infection, site not specified (principal); G92.8 Other toxic encephalopathy; J96.01 Acute respiratory failure with hypoxia; Z16.23 Resistance to quinolones and fluoroquinolones; J44.1 Chronic obstructive pulmonary disease with (acute) exacerbation; N40.1 Benign prostatic hyperplasia with lower urinary tract symptoms; I10 Essential (primary) hypertension; R33.8 Other retention of urine; J32.9 Chronic sinusitis, unspecified; I25.10 Atherosclerotic heart disease of native coronary artery without angina pectoris; E78.5 Hyperlipidemia, unspecified; K21.9 Gastro-esophageal reflux disease without esophagitis; M25.822 Other specified joint disorders, left elbow; Z20.822 Contact with and (suspected) exposure to COVID-19; Z87.440 Personal history of urinary (tract) infections; B96.5 Pseudomonas (aeruginosa) (mallei) (pseudomallei) as the cause of diseases classified elsewhere; Z79.4 Long term (current) use of insulin; Z79.02 Long term (current) use of antithrombotics/antiplatelets; Z79.82 Long term (current) use of aspirin; Z79.899 Other long term (current) drug therapy
CPT/HCPCS: 0241U; 36410; 36415; 70450; 71045; 71275; 72125; 73080; 80048; 80053; 80076; 81001; 81003; 82550; 82803; 82947; 83605; 83690; 83735; 83880; 84145; 84443; 84484; 85025; 86140; 87040; 87086; 87088; 87186; 93005; 94640; 97162; 97165; 97530; 99285; J0692; J1650; J1938; J7120; Q9967

== ENCOUNTER → 2024-12-26 13:04 | Outpatient (BNV) | payer MEDICARE, MEDICAID, SELFPAY | PROVIDERS: Admitting Provider Student in an Organized Health Care Education/Training Program; Emergency Provider Emergency Medicine; PCP Physician Assistant Medical; Visit Provider Internal Medicine Cardiovascular Disease | DX: R94.31 Abnormal electrocardiogram [ECG] [EKG] (principal); W19.XXXA Unspecified fall, initial encounter | CPT/HCPCS: 93010 ==

== ENCOUNTER → 2024-12-26 13:04 | Outpatient (BNV) | payer MEDICARE, MEDICAID, SELFPAY | PROVIDERS: Emergency Provider Emergency Medicine; PCP Physician Assistant Medical; Visit Provider Radiology Diagnostic Radiology | DX: I25.10 Atherosclerotic heart disease of native coronary artery without angina pectoris (principal); R41.0 Disorientation, unspecified; J34.89 Other specified disorders of nose and nasal sinuses; R05.9 Cough, unspecified; R22.32 Localized swelling, mass and lump, left upper limb | CPT/HCPCS: 70450; 71045; 71275; 72125; 73080 ==

== ENCOUNTER → 2024-12-26 18:50 | Outpatient (BNV) | payer MEDICARE, MEDICAID, SELFPAY | PROVIDERS: Admitting Provider Student in an Organized Health Care Education/Training Program; Emergency Provider Emergency Medicine; PCP Physician Assistant Medical; Visit Provider Internal Medicine | DX: N39.0 Urinary tract infection, site not specified (principal); B96.5 Pseudomonas (aeruginosa) (mallei) (pseudomallei) as the cause of diseases classified elsewhere; R41.0 Disorientation, unspecified | CPT/HCPCS: 99232; 99499 ==

== ENCOUNTER → 2024-12-26 18:50 | Outpatient (BNV) | payer MEDICARE, MEDICAID, SELFPAY | PROVIDERS: Admitting Provider Student in an Organized Health Care Education/Training Program; Emergency Provider Emergency Medicine; PCP Physician Assistant Medical; Visit Provider Nurse Practitioner Family | DX: R09.02 Hypoxemia (principal); R41.0 Disorientation, unspecified; N39.0 Urinary tract infection, site not specified; A49.8 Other bacterial infections of unspecified site | CPT/HCPCS: 99223; 99233 ==